=== PATIENT | male | born 1935 | race Caucasian/White ===

== ENCOUNTER 2018-09-14 18:14 | Observation (INO) | payer OTHER ==
[2018-09-14 19:08] LABS: Protime INR 1.18
[2018-09-14 19:09] LABS: Absolute Lymphocytes (CBC) 1.7 K/uL (0.7-4.9); Basophils % 0.4 % (0-1.3); Eosinophils % 2.1 % (0-4.4); Hematocrit 41.5 % (39.6-49.0); Monocytes % 10.8 % (3.3-12.3); RBC Red Blood Cell Count 4.42 M/uL (4.33-5.43)
--- NOTE | 2018-09-14 19:10 | RAD REPORT ---
EXAM DESCRIPTION: RAD - Chest Single View - 09/14/2018 6:58 pm CLINICAL HISTORY: CHEST PAIN Chest pain. COMPARISON: Chest Pa And Lat (2 Views) dated 08/06/2018; CHEST PA AND LAT 2 VIEW dated 09/24/2014; CHES T SINGLE VIEW dated 04/20/2008; ABDOMEN ACUTE SERIES dated 04/04/2008 FINDINGS: Portable technique limits examination quality. The lungs are emphysematous but grossly clear. The heart is normal in size. No displaced fractures. IMPRESSION: COPD.
[2018-09-14 19:30] LABS: Albumin 3.3 g/dL (3.4-5.0); Bilirubin Direct 0.3 mg/dL (0-0.2); Bilirubin Total 0.5 mg/dL (0.2-1.0); Magnesium 2.2 mg/dL (1.8-2.4); Protein, Total 6.4 g/dL (6.4-8.2); Troponin (Emerg Dept Use Only) 0.1 ng/mL (0.0-0.045)
--- NOTE | 2018-09-14 19:59 | ER ---
Nurse's Notes [facility] Name: Wale Mistry Age: 82 yrs Sex: Male : 1935 Arrival Date: 09/14/2018 Time: 18:19 Bed 6 Private MD: Mamadou Christianson R Diagnosis: Hypotension;Other chest pain;Atrial fibrillation and flutter;Unspecified kidney failure-insufficency;Hydrocele, unspecified-sp surgery, last week Presentation: 09/14 18:28 Presenting complaint: Patient states: I had a hydroceleectomy on with Dr. silas dan at [facility] and today my bp is running low, once at home it was 70/50 and I was clammy and having chest tightness. '. Transition of care: patient was not received from another setting of care. Onset of symptoms was September 14, 2018. Risk Assessment: Do you want to hurt yourself or someone else? Patient reports no desire to harm self or others. Initial Sepsis Screen: Does the patient meet any 2 criteria? No. Patient's initial sepsis screen is negative. Does the patient have a suspected source of infection? No. Patient's initial sepsis screen is negative. Care prior to arrival: None. 18:28 Method Of Arrival: Ambulatory la1 18:28 Acuity: VINOD 2 la1 Historical: - Allergies: 18:29 No Known Allergies; la1 - PMHx: 18:29 Atrial Fib; Hypertension; la1 - Immunization history:: Adult Immunizations up to date. - Social history:: Smoking status: Patient/guardian denies using tobacco. - Ebola Screening: : No symptoms or risks identified at this time. - Family history:: not pertinent. Screenin:55 Abuse screen: Denies threats or abuse. Denies injuries from another. Nutritional ph screening: No deficits noted. Tuberculosis screening: No symptoms or risk factors identified. Fall Risk No fall in past 12 months (0 pts). No secondary diagnosis (0 pts). IV access (20 points). Ambulatory Aid- None/Bed Rest/Nurse Assist (0 pts). Gait- Weak (10 pts.). Mental Status- Oriented to own ability (0 pts). Total Najera Fall Scale indicates Low Risk Score (25-44 pts). Fall prevention measures have been instituted. Side Rails Up X 2 Placed close to Nursing Station Frequent Obs/Assesments occuring Family Present and informed to notify staff if they need to leave bedside As available Patient and Family Educated on Fall Prevention Program and strategies. Assessment: 19:56 General: Appears in no apparent distress. uncomfortable, Behavior is calm, cooperative, jd3 appropriate for age. Pain: Complains of pain in chest Quality of pain is described as pressure. Neuro: Level of Consciousness is awake, alert, obeys commands, Oriented to person, place, time, situation, Appropriate for age. Cardiovascular: Heart tones present Capillary refill < 3 seconds Patient's skin is warm and dry. Rhythm is irregular. Respiratory: Airway is patent Respiratory effort is even, unlabored, Respiratory pattern is regular, symmetrical, Denies shortness of breath. GI: Abdomen is round non-distended, Bowel sounds present X 4 quads. Abd is soft and non tender X 4 quads. Patient currently denies diarrhea, nausea, vomiting. : on scrotum drains noted with small amount of blood. EENT: No signs and/or symptoms were reported regarding the EENT system. Derm: Skin is intact, Skin is dry, Skin is normal, Skin temperature is warm. Musculoskeletal: Circulation, motion, and sensation intact. Range of motion: intact in all extremities. 20:30 Reassessment: Patient appears in no apparent distress at this time. Patient and/or jd3 family updated on plan of care and expected duration. Pain level reassessed. Patient is alert, oriented x 3, equal unlabored respirations, skin warm/dry/pink. dressing changed to pt's surgical sight. 21:12 Reassessment: Patient appears in no apparent distress at this time. Patient and/or jd3 family updated on plan of care and expected duration. Pain level reassessed. Patient is alert, oriented x 3, equal unlabored respirations, skin warm/dry/pink. 22:22 Reassessment: Patient appears in no apparent distress at this time. Patient and/or jd3 family updated on plan of care and expected duration. Pain level reassessed. Patient is alert, oriented x 3, equal unlabored respirations, skin warm/dry/pink. awaiting room assignment. Patient denies pain at this time. 23:22 Reassessment: Patient appears in no apparent distress at this time. Patient and/or jd3 family updated on plan of care and expected duration. Pain level reassessed. Patient is alert, oriented x 3, equal unlabored respirations, skin warm/dry/pink. report given to Elizabeth ARCOS. Vital Signs: 18:30 Pulse 82; Resp 16; Temp 98.6; Pulse Ox 95% on R/A; Weight 79.38 kg; Height 5 ft. 9 in. la1 (175.26 cm); 18:31 BP 95 / 67; la1 19:58 BP 123 / 87; Pulse 88; Resp 17 S; Pulse Ox 98% on R/A; Pain 3/10; jd3 20:23 Weight 80.4 kg (M); jd3 21:11 BP 128 / 96; Pulse 89; Resp 16 S; Pulse Ox 97% on R/A; Pain 0/10; jd3 22:23 BP 118 / 80; Pulse 82; Resp 17 S; Pulse Ox 97% on R/A; Pain 0/10; jd3 20:23 Body Mass Index 26.18 (80.40 kg, 175.26 cm) jd3 ED Course: 18:19 Patient arrived in ED. ag5 18:20 Mamadou Christianson MD is Private Physician. ag5 18:29 Triage completed. la1 18:30 Arm band placed on right wrist. la1 18:43 EKG done, by ED staff. kj1 18:54 Inserted saline lock: 22 gauge in right antecubital area, using aseptic technique. ph Blood collected. 18:55 Patient has correct armband on for positive identification. Placed in gown. Bed in low ph position. Call light in reach. Side rails up X 1. youth nutritional monitor on. Pulse ox on. NIBP on. 19:00 XRAY Chest (1 view) In Process Unspecified. EDMS 19:11 Db Tobar MD is Attending Physician. jose 19:37 Dong Denton, [place] is Primary Nurse. jd3 19:56 Victor M Forman MD is Hospitalizing Provider. jose 19:59 IV is patent, is intact, with fluids infusing freely, with good blood return. jd3 23:17 No provider procedures requiring assistance completed. IV is patent, is intact, with jd3 fluids infusing freely, Patient admitted, IV remains in place. Administered Medications: 19:53 Drug: NS 0.9% 1000 ml Route: IV; Rate: 1 bolus; Site: right antecubital; jd3 20:50 Follow up: Response: No adverse reaction; IV Status: Completed infusion; IV Intake: jd3 1000ml 21:25 Drug: Pepcid 20 mg Route: IVP; Site: right antecubital; jd3 22:20 Follow up: Response: No adverse reaction jd3 21:27 Drug: Heparin (CT Drip) 12 units/kg/hr - (HEParin 55750 units, D5W 500 ml) jd3 {Co-Signature: re (Rosita James RN).} Route: IV; Rate: calculated rate; Site: right antecubital; 23:21 Follow up: Response: No adverse reaction; IV Status: Infusion continued upon admission jd3 21:28 Drug: Heparin (CT-Bolus No thrombolytic) - HEParin 60 units/kg {Co-Signature: re moe (Rosita James RN).} Route: IVP; Site: right antecubital; 22:25 Follow up: Response: No adverse reaction jd3 21:28 Drug: Aspirin 81 mg Route: PO; jd3 22:25 Follow up: Response: No adverse reaction jd3 Intake: 20:50 IV: 1000ml; Total: 1000ml. jd3 Outcome: 19:58 Decision to Hospitalize by Provider. jose 23:18 Admitted to Tele accompanied by cele, via stretcher, room 210, with chart, Report jd3 called to Elizabeth ARCOS 23:18 Condition: stable 23:18 Instructed on the need for admit, Demonstrated understanding of instructions. 23:23 Patient left the ED. jd3 Signatures: Dispatcher [employer] EDDb Chavira MD MD cha Attema, Lee, RN RN la1 Bozena Nunez RN Dong Jerome ph D RN RN jLisha Lam5 Kathi Mandujano kj1 Rosita James RN bb Corrections: (The following items were deleted from the chart) 18:30 18:28 Presenting complaint: Patient states: I had a hydroceleectomy on and la1 today my bp is running low, once at home it was 70/50 and I was clammy and having chest tightness. ' la1 09/15 07:10 06/15 19:56 : jd3 jd3
--- NOTE | 2018-09-14 19:59 | EDPHYS ---
Physician Documentation [facility] Name: Wale Mistry Age: 82 yrs Sex: Male : 1935 Arrival Date: 09/14/2018 Time: 18:19 Bed 6 Private MD: Mamadou Christianson R ED Physician Db Tobar HPI: 09/14 19:51 This 82 yrs old Male presents to ER via Ambulatory with complaints of Low jose Blood Pressure. 19:51 The patient or guardian reports chest pain that is located primarily in the substernal jose area. Onset: this morning. The patient presents with scrotal pain, swelling, tenderness, sp surgery last week. Onset: The symptoms/episode began/occurred this morning. Modifying factors: The symptoms are alleviated by nothing, the symptoms are aggravated by nothing. Associated signs and symptoms: The patient has no apparent associated signs or symptoms. Historical: - Allergies: 18:29 No Known Allergies; la1 - PMHx: 18:29 Atrial Fib; Hypertension; la1 - Immunization history:: Adult Immunizations up to date. - Social history:: Smoking status: Patient/guardian denies using tobacco. - Ebola Screening: : No symptoms or risks identified at this time. - Family history:: not pertinent. ROS: 19:51 Constitutional: Negative for fever, chills, and weight loss, Eyes: Negative for injury, jose pain, redness, and discharge, ENT: Negative for injury, pain, and discharge, Neck: Negative for injury, pain, and swelling, Respiratory: Negative for shortness of breath, cough, wheezing, and pleuritic chest pain, Abdomen/GI: Negative for abdominal pain, nausea, vomiting, diarrhea, and constipation, Back: Negative for injury and pain, MS/Extremity: Negative for injury and deformity, Skin: Negative for injury, rash, and discoloration, Neuro: Negative for headache, weakness, numbness, tingling, and seizure, Psych: Negative for depression, anxiety, suicide ideation, homicidal ideation, and hallucinations, Allergy/Immunology: Negative for hives, rash, and allergies, Endocrine: Negative for neck swelling, polydipsia, polyuria, polyphagia, and marked weight changes, Hematologic/Lymphatic: Negative for swollen nodes, abnormal bleeding, and unusual bruising. 19:51 Cardiovascular: Positive for chest pain, of the chest. 19:51 Cardiovascular: Positive for palpitations. 19:51 Respiratory: Positive for cough, with no reported sputum. Exam: 19:51 Constitutional: This is a well developed, well nourished patient who is awake, alert, jose and in no acute distress. Head/Face: Normocephalic, atraumatic. Eyes: Pupils equal round and reactive to light, extra-ocular motions intact. Lids and lashes normal. Conjunctiva and sclera are non-icteric and not injected. Cornea within normal limits. Periorbital areas with no swelling, redness, or edema. ENT: Nares patent. No nasal discharge, no septal abnormalities noted. Tympanic membranes are normal and external auditory canals are clear. Oropharynx with no redness, swelling, or masses, exudates, or evidence of obstruction, uvula midline. Mucous membranes moist. Neck: Trachea midline, no thyromegaly or masses palpated, and no cervical lymphadenopathy. Supple, full range of motion without nuchal rigidity, or vertebral point tenderness. No Meningismus. Chest/axilla: Normal chest wall appearance and motion. Nontender with no deformity. No lesions are appreciated. Respiratory: Lungs have equal breath sounds bilaterally, clear to auscultation and percussion. No rales, rhonchi or wheezes noted. No increased work of breathing, no retractions or nasal flaring. Abdomen/GI: Soft, non-tender, with normal bowel sounds. No distension or tympany. No guarding or rebound. No evidence of tenderness throughout. Back: No spinal tenderness. No costovertebral tenderness. Full range of motion. MS/ Extremity: Pulses equal, no cyanosis. Neurovascular intact. Full, normal range of motion. Neuro: Awake and alert, GCS 15, oriented to person, place, time, and situation. Cranial nerves II-XII grossly intact. Motor strength 5/5 in all extremities. Sensory grossly intact. Cerebellar exam normal. Normal gait. Psych: Awake, alert, with orientation to person, place and time. Behavior, mood, and affect are within normal limits. 19:51 Cardiovascular: Rate: normal, Rhythm: irregularly irregular, Pulses: Pulses are 4+ in bilateral radial, brachial, femoral, popliteal, posterior tibial and and dorsalis pedis arteries.. Heart sounds: normal, Edema: 2+ edema to level of left midcalf and right midcalf, JVD: is not appreciated. Vital Signs: 18:30 Pulse 82; Resp 16; Temp 98.6; Pulse Ox 95% on R/A; Weight 79.38 kg; Height 5 ft. 9 in. la1 (175.26 cm); 18:31 BP 95 / 67; la1 19:58 BP 123 / 87; Pulse 88; Resp 17 S; Pulse Ox 98% on R/A; Pain 3/10; jd3 20:23 Weight 80.4 kg (M); jd3 21:11 BP 128 / 96; Pulse 89; Resp 16 S; Pulse Ox 97% on R/A; Pain 0/10; jd3 22:23 BP 118 / 80; Pulse 82; Resp 17 S; Pulse Ox 97% on R/A; Pain 0/10; jd3 20:23 Body Mass Index 26.18 (80.40 kg, 175.26 cm) jd3 MDM: 19:09 Patient medically screened. jose 19:11 Patient medically screened. [facility] 19:54 Data reviewed: vital signs, nurses notes, lab test result(s), EKG, radiologic studies, jose plain films. 09/14 18:44 Order name: Basic Metabolic Panel ph 09/14 18:44 Order name: CBC with Diff ph 09/14 18:44 Order name: LFT's ph 09/14 18:44 Order name: Magnesium ph 09/14 18:44 Order name: NT PRO-BNP; Complete Time: 19:44 ph 09/14 18:44 Order name: PT-INR; Complete Time: 19:23 ph 09/14 18:44 Order name: Troponin (emerg Dept Use Only); Complete Time: 19:44 ph 09/14 18:47 Order name: Basic Metabolic Panel; Complete Time: 19:44 EDMS 09/14 18:47 Order name: CBC with Automated Diff; Complete Time: 19:23 EDMS 09/14 18:47 Order name: Liver (Hepatic) Function; Complete Time: 19:44 EDMS 09/14 18:47 Order name: Magnesium; Complete Time: 19:44 EDMS 09/14 19:21 Order name: Urine Culture [facility] 09/14 19:21 Order name: Blood Culture Adult (2) [facility] 09/14 20:30 Order name: Urine Dipstick--Ancillary (enter results) ar5 09/14 18:44 Order name: XRAY Chest (1 view); Complete Time: 19:23 ph 09/14 18:44 Order name: EKG; Complete Time: 18:47 ph 09/14 18:44 Order name: Cardiac monitoring; Complete Time: 19:38 ph 09/14 18:44 Order name: EKG - Nurse/Tech; Complete Time: 19:39 ph 09/14 18:44 Order name: IV Saline Lock; Complete Time: 19:39 ph 09/14 18:44 Order name: Labs collected and sent; Complete Time: 19:39 ph 09/14 18:44 Order name: O2 Per Protocol; Complete Time: 19:39 ph 09/14 18:44 Order name: O2 Sat Monitoring; Complete Time: 19:39 ph 09/14 19:21 Order name: Urine Dipstick-Ancillary (obtain specimen); Complete Time: 20:51 jose 09/14 19:55 Order name: Wound Care; Complete Time: 20:23 jose Administered Medications: 19:53 Drug: NS 0.9% 1000 ml Route: IV; Rate: 1 bolus; Site: right antecubital; jd3 20:50 Follow up: Response: No adverse reaction; IV Status: Completed infusion; IV Intake: jd3 1000ml 21:25 Drug: Pepcid 20 mg Route: IVP; Site: right antecubital; jd3 22:20 Follow up: Response: No adverse reaction jd3 21:27 Drug: Heparin ([place] Drip) 12 units/kg/hr - (HEParin 03944 units, D5W 500 ml) jd3 {Co-Signature: re (Rosita James RN).} Route: IV; Rate: calculated rate; Site: right antecubital; 23:21 Follow up: Response: No adverse reaction; IV Status: Infusion continued upon admission jd3 21:28 Drug: Heparin (MN-Bolus No thrombolytic) - HEParin 60 units/kg {Co-Signature: re moe (Rosita James RN).} Route: IVP; Site: right antecubital; 22:25 Follow up: Response: No adverse reaction jd3 21:28 Drug: Aspirin 81 mg Route: PO; jd3 22:25 Follow up: Response: No adverse reaction jd3 Disposition: 09/14/18 19:58 Hospitalization ordered by Victor M Forman for Inpatient Admission. Preliminary diagnosis are Hypotension, Other chest pain, Atrial fibrillation and flutter, Unspecified kidney failure - insufficency, Hydrocele, unspecified - sp surgery, last week. - Bed requested for Telemetry/MedSurg (Inpatient). - Status is Inpatient Admission. jd3 - Condition is Fair. - Problem is new. - Symptoms have improved. UTI on Admission? No Signatures: Dispatcher [employer] EDMS Db Tobar MD MD cha Attema, Lee, RN RN la1 Bozena Nunez RN RN Judie Muniz, RN RN cg Dong Denton RN RN jd3 Rosita James RN bb Corrections: (The following items were deleted from the chart) 22:32 19:58 Hospitalization Ordered by Victor M Forman MD for Inpatient Admission. Preliminary cg diagnosis is Hypotension; Other chest pain; Atrial fibrillation and flutter; Unspecified kidney failure - insufficency; Hydrocele, unspecified - sp surgery, last week. Bed requested for Telemetry/MedSurg (Inpatient). Status is Inpatient Admission. Condition is Fair. Problem is new. Symptoms have improved. UTI on Admission? No. [facility] 23:23 22:32 09/14/2018 19:58 Hospitalization Ordered by Victor M Forman MD for Inpatient jd3 Admission. Preliminary diagnosis is Hypotension; Other chest pain; Atrial fibrillation and flutter; Unspecified kidney failure - insufficency; Hydrocele, unspecified - sp surgery, last week. Bed requested for Telemetry/MedSurg (Inpatient). Status is Inpatient Admission. Condition is Fair. Problem is new. Symptoms have improved. UTI on Admission? No. cg
[2018-09-14] MEDS ORDERED: NA CHLORIDE 0.9% 1,000 ML ONE (20:00)
[2018-09-14] MEDS ORDERED: FAMOTIDINE 20 MG/2 ML VIAL IV ONE (21:05)
[2018-09-14] MEDS ORDERED: ASPIRIN 81 MG CHEWABLE TABLET ONE (21:05)
[2018-09-14] MEDS ORDERED: HEPARIN/D5W 25,000 UNIT/500 ML BAG IV ONE (21:05)
[2018-09-14 21:06] LABS: Urine Blood NEGATIVE (NEG); Urine Glucose NEGATIVE (NEG); Urine Protein NEGATIVE (NEG); Urine pH 5.5 (5.0-7.0)
[2018-09-14] MEDS ORDERED: HEPARIN 5000 UNIT/ML 1 ML VIAL ONE (21:39)
--- NOTE | 2018-09-14 22:28 | P.HP ---
Certification for Inpatient Patient admitted to: Observation With expected LOS: <2 Midnights Practitioner: I am a practitioner with admitting privileges, knowledge of patient current condition, hospital course, and medical plan of care. Services: Services provided to patient in accordance with Admission requirements found in Title 42 Section 412.3 of the Code of Federal Regulations Patient History Date of Service: 09/14/18 Reason for admission: chest pain, dizziness History of Present Illness: Mr Mistry is an 82 years old male, with history of HTN, chronic a.fib, who has had Hydrocelectomy done about 3 days ago. Since so, he was doing well, according to his family member, he was not drinking enough fluids. Today, the patient was dizzy, he took his BP wan it was low, 65/57. The patient was clammy , and he was complaining of tightness in his chest. Unfortunately the patient is not a good historian, and he did not give to much details about chest pain, however, he is pain free now. At arrival, BP was still on the lower side, 95/ 67. Lab work shows normal WBC count, Trop I 0.1, EKG shows A.Fib with RBBB (not new). Home medications list reviewed: Yes - Past Medical/Surgical History -: chronic A.Fib -: hypertension -: hydrocelectomy - Family History Family History: Reviewed- Non-Contributory - Social History Smoking Status: Current every day smoker Counseled patient to stop smoking for: less than 10 minutes CD- Drugs: No Place of Residence: Home Review of Systems 10-point ROS is otherwise unremarkable Physical Examination - Physical Exam General: Alert, In no apparent distress HEENT: Atraumatic, PERRLA, Mucous membr. moist/pink, EOMI, Sclerae nonicteric Neck: Supple, 2+ carotid pulse no bruit, No LAD, Without JVD or thyroid abnormality Respiratory: Clear to auscultation bilaterally, Normal air movement Cardiovascular: Normal S1 S2, Irregular heart rate/rhythm Gastrointestinal: Normal bowel sounds, No tenderness Musculoskeletal: No tenderness Integumentary: No rashes Neurological: Normal speech, Normal strength at 5/5 x4 extr, Normal tone, Normal affect Lymphatics: No axilla or inguinal lymphadenopathy - Studies Laboratory Data (last 24 hrs) 09/14/18 18:54: PT 13.8 H, INR 1.18 09/14/18 18:54: WBC 8.7, Hgb 14.3, Hct 41.5, Plt Count 137 L 09/14/18 18:54: Sodium 141, Potassium 4.0, BUN 19 H, Creatinine 1.31 H, Glucose 127 H, Magnesium 2.2, Total Bilirubin 0.5, AST 17, ALT 18, Alkaline Phosphatase 78 Assessment and Plan - Problems (Diagnosis) (1) Hypotension Current Visit: Yes Status: Acute Qualifiers: Hypotension type: unspecified hypotension type Qualified Code(s): I95.9 - Hypotension, unspecified (2) Chest pain Current Visit: Yes Status: Acute Qualifiers: Chest pain type: unspecified Qualified Code(s): R07.9 - Chest pain, unspecified (3) Chronic a-fib Current Visit: Yes Status: Acute (4) Elevated troponin I level Current Visit: Yes Status: Acute - Plan Will admit the patient due to chest pain with elevated trop I, consistent with NSTEMI. Will order full anticoagulation with lovenox, ASA, start IV fluids, consult cardiology team. A.Fib rate is well controlled. - Advance Directives Does patient have a Living Will: No Does patient have a Durable POA for Healthcare: No - Code Status/Comfort Care Code Status Assessed: Yes Code Status: Full Code
[2018-09-14] MEDS ORDERED: ONDANSETRON 4 MG/2 ML VIAL IV PRN (23:54)
[2018-09-14] MEDS ORDERED: NA CHLORIDE 0.9% 1,000 ML IV SCH (23:54)
[2018-09-15] MEDS ORDERED: ENOXAPARIN 80 MG/0.8 ML SQ SCH (02:00)
[2018-09-15 04:16] LABS: Absolute Lymphocytes (CBC) 2.2 K/uL (0.7-4.9); Basophils % 0.4 % (0-1.3); Eosinophils % 3.6 % (0-4.4); Lymphocytes % 27.4 % (15.3-44.8); MPV 9.8 fL (7.6-11.3); RBC Red Blood Cell Count 4.29 M/uL (4.33-5.43)
[2018-09-15 04:39] LABS: Potassium 3.7 mmol/L (3.5-5.1)
[2018-09-15] MEDS ORDERED: ASPIRIN 81 MG CHEWABLE TABLET PO SCH (09:00)
[2018-09-15] MEDS ORDERED: POTASSIUM CL SA 10 MEQ TAB PO ONE (09:00)
--- NOTE | 2018-09-15 10:35 | EKG ---
Test Date: 2018-09-14 Test Time: 18:28:54 Graphics Coordinator: ANKIT MEASUREMENT RESULTS: Intervals: Rate: 87 NM: QRSD: 150 QT: 398 QTc: 478 [place]: P: NM: QRS: -68 T: 9 INTERPRETIVE STATEMENTS: Atrial fibrillation with premature ventricular or aberrantly conducted complexes Left axis deviation Right bundle branch block Abnormal ECG Compared to ECG 08/15/2018 10:45:26 Ventricular premature complex(es) now present Electronically Signed On 09-15-18 10:35:10 CDT by Jacob Pandya
--- NOTE | 2018-09-16 02:39 | DS ---
Date of Discharge: 09/15/2018 Bailiff: Dr. Pandya with Cardiology. Discharge Diagnoses: 1. Chest pain. 2. Hypertension. 3. Chronic atrial fibrillation. 4. Elevated troponin level. Hospital Course: The patient is an 82-year-old male with past medical history of hypertension, chronic atrial fibrillation, who recently had hydrocelectomy done 3 days ago, comes in with dizziness and chest pain. The patient's workup revealed elevated troponin level of 0.1 and 0.16. His blood pressure was on the low side. The patient was started on chest pain guidelines. Cardiology was consulted. His blood pressure improved with IV fluid resuscitation, was in the 140s. The patient did not have any chest pain, did report some musculoskeletal pain. The patient was more concerned with his hydrocele as well as getting back home and therefore wanted to leave against medical advice. The patient was counseled extensively. Primary nurse as well as charge nurse , Josiane, was in the room along with the patient's daughter. I explained to the patient that he has elevated cardiac enzymes, which means that he has had some form of cardiac injury. It is highly dangerous and risky for the patient to leave against medical advice. He could suffer a worsening cardiac event and possibly even . The patient voiced understanding. He stated that, that is the risk he is willing to take. He would rather go home, adjust his bed, and continue to ice his testicle following the recent procedure. The patient already has an ice pack. He did not wish to stay in the hospital and understanding the risks, he signed out against medical advice. Physical exam General: AAOx3, NAD CV: S1, S2 Respiratory: Moving air well bilaterally Abdomen: soft NT/ND +BS Ext: No c/c/e Neuro: non focal SA/MODL Voice ID: [id number] Report ID: [id number]
== END 2018-09-15 09:55 | disposition left against medical advice (07) ==
LOC: ER 18:14 → ERHOLD 22:28 → 2ND 22:57
PROVIDERS: ADMIT Internal Medicine; ATTEND Internal Medicine
DX: R07.9 Chest pain, unspecified (principal); I48.2 Chronic atrial fibrillation; R79.89 Other specified abnormal findings of blood chemistry; I10 Essential (primary) hypertension; F17.210 Nicotine dependence, cigarettes, uncomplicated
CPT/HCPCS: 96365; 96361; 93005; 87040 ×2; 87088; 85025 ×2; 80048 ×2; 36415; 83735; 87205; 85610; 80076; 81003; 84484 ×2; 83880; 71045; 96375; 99285; 96366; J1644 ×2; J1650; J7030 ×2; G0378 ×2; 87086

== ENCOUNTER 2021-04-11 13:02 | Day surgery (SDC) | payer OTHER ==
[2021-04-08 10:27] LABS: Hematocrit 45.3 % (39.6-49.0); Lymphocytes % 23.3 % (15.3-44.8); MPV 8.9 fL (7.6-11.3); Protime INR 1.96; RBC Red Blood Cell Count 4.68 M/uL (4.33-5.43)
[2021-04-08 10:33] LABS: Potassium 4.4 mmol/L (3.5-5.1)
--- NOTE | 2021-04-08 11:35 | RAD REPORT ---
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 FINDINGS: The lungs are fibrotic with flattened diaphragm. Fibrotic pattern is not clearly different from the comparison. No failure or volume overload findings. Heart size is normal and central vasculature is within normal limits. No pleural effusion or pneu mothorax seen. No acute bony finding noted. No aortic abnormality. IMPRESSION: Mild to moderate COPD pattern similar to comparison. No acute findings seen.
--- NOTE | 2021-04-09 13:49 | EKG ---
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
[~2021-04-11 13:02] MED LIST: HEPA 1000U/500MLS 2,000 UNIT/1,000 ML BAG IV ONE; NA CHLORIDE 0.9% 500 ML ONE
[2021-04-11] MEDS ORDERED: LIDOCAINE 1% 20 ML MDV ONE (13:08)
[2021-04-11 14:02] VITALS: TEMP 97.5
[2021-04-11] MEDS ORDERED: FENTANYL CITR 100 MCG/2 ML ONE (15:21)
[2021-04-11] MEDS ORDERED: HEPARIN 5000 UNIT/ML 1 ML VIAL ONE (15:21)
[2021-04-11] MEDS ORDERED: MIDAZOLAM HCL 2 MG/2 ML INJ ONE (15:21)
[2021-04-11] MEDS ORDERED: VERAPAMIL HCL 10 MG/4 ML VIAL IV ONE (15:21)
[2021-04-11] MEDS ORDERED: NITROGLYCERIN 100 MCG/ML SYR (for cath lab use only) IV ONE (15:22)
[2021-04-11] MEDS ORDERED: ATROPINE SULF 1 MG/10 ML SYR IV ONE (15:22)
[2021-04-11] MEDS ORDERED: HEPA 1000U/500MLS 1,000 UNIT/500 ML BAG IV ONE (15:42)
[2021-04-11] MEDS ORDERED: HYDRALAZINE HCL 20 MG/ML VIAL IV ONE (17:40)
[2021-04-11] MEDS ORDERED: HYDRALAZINE HCL 20 MG/ML VIAL ONE (17:43)
[2021-04-11 19:21] VITALS: BP 155/90; O2SAT 95
--- NOTE | 2021-04-12 02:14 | OP ---
Date of Procedure: 04/11/2021 Surgeon: YANET RAMOS Procedure Performed: 1.Selective coronary angiogram. 2.Peripheral angiogram with runoff. Indication: 1.Severe peripheral vascular disease. 2.Unstable angina. Access: Right radial artery 6-Turkish closed with TR band. Complications: None. Bleeding: Less than 10 mL. Description Of Procedure: After risks, benefits, and alternatives were explained, the patient agreed to the procedure and signed informed consent. The patient was brought into the cardiac catheterizat ion laboratory, prepped and draped in usual sterile fashion. Then, we accessed right radial artery u sing pediatric micropuncture kit and placed a 6-Turkish slender sheath and then took a 5-Turkish [place] 4.0 catheter in the aortic root, engaged left main and the right coronary artery, took standard views , and then took an exchange J-wire through the catheter into the distal aorta and then exchanged for a long pigtail catheter, and then distal aortogram with runoff was done. Subsequently, I used a vanessa ctive engagement of the left SFA and did further angiogram to see the vessels below the knee. Then, the catheter was removed, sheath was removed, placed TR band with good hemostasis. Findings: 1.Left main; large and normal. 2.LAD; a very large and aneurysmal proximal portion and then there are multiple lesions that ranges between 50% to 60% stenosis with some aneurysmal segments in between diagonal branches, aneurysmal pr oximally but ostially it is about 80% to 90% stenosed. 3.Left circumflex. The whole vessel is large and aneurysmal and ectatic with slow flow with no foca l significant stenosis. 4.RCA. Large and aneurysmal and no focal stenosis, there is about 20% or 30% proximal stenosis and then the PLB is diffusely diseased distally, slow flow throughout all his arteries. 5.Peripheral angiogram, distal aorta is patent. 6.Bilateral common and internal iliacs are patent. No significant disease. 7.Bilateral common femoral arteries are patent. 8.Left SFA is widely patent until the area above the knee where it becomes [employer] and there are collate rals that comes off from this vessel before CTA of that feet felt like profunda is patent. 9.The right SFA is widely patent. Right profunda is widely patent and slow flow below the knee. 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 2.Severe peripheral vascular disease as above. Plan: 1.For coronary artery disease, I will choose medical management. No intervention is recommended. 2.For peripheral vascular disease, I will consult Vascular Surgery for further recommendations. /MIAN Voice ID: [id number] Report ID: [id number]
== END 2021-04-11 18:10 | disposition home or self-care (01) ==
LOC: CCL 13:02
PROVIDERS: ATTEND Internal Medicine
PROC: B40DYZZ Plain Radiography of Aorta and Bilateral Lower Extremity Arteries using Other Contrast (ICD-10-PCS; principal; 2021-04-11)
DX: I25.110 Atherosclerotic heart disease of native coronary artery with unstable angina pectoris (principal); I25.41 Coronary artery aneurysm; I70.213 Atherosclerosis of native arteries of extremities with intermittent claudication, bilateral legs; I70.92 Chronic total occlusion of artery of the extremities; I35.2 Nonrheumatic aortic (valve) stenosis with insufficiency; I48.21 Permanent atrial fibrillation; I10 Essential (primary) hypertension; F17.210 Nicotine dependence, cigarettes, uncomplicated; Z20.822 Contact with and (suspected) exposure to COVID-19; Z82.49 Family history of ischemic heart disease and other diseases of the circulatory system
CPT/HCPCS: 93005 ×2; 85025; 80048; 36415; 85610; 85730; 71046; 93454; 75630; U0003; C1893; C1769; J0360; J1644 ×3; J2250; J3010; J7040

== ENCOUNTER 2021-06-20 11:53 | Observation (INO) | payer OTHER ==
--- OUTSIDE RECORDS SUMMARY | 2021-06-20 11:57 | XMS REPORT | Continuity of Care Document ---
:1935 Demographics Address [address] [place] [address] Email Address DECLINED Preferred Language Belarusian Marital Status Unknown Congregation Affiliation Unknown Race Unknown Additional Race(s) Unavailable Ethnic Group Unknown Author Organization [facility] t Address [address] [place] [address] Care Team Providers Name Role Phone Carol Jimenez Attending Clinician Unavailable Carol Jimenez Admitting Clinician Unavailable Payers Payer Name Policy Type Policy Number Effective Date Expiration Date S ource Problems This patient has no known problems. Allergies, Adverse Reactions, Alerts Allergy Allergy Status Severity Reaction(s) Onset Inactive Treating Comm ents Source Name Type Date Date Clinician No Known DA Active [facility] All[facility]ie 1-11 Clear s 00:00: [facility] [address] [place] [address] Medications This patient has no known medications. Procedures Procedure Date / Time Performed Performing Clinician Elgiio mercer [id number] 2021-04-18 00:00:00 [facility] [id number] 2021-04-18 00:00:00 [facility] [id number] 2021-04-18 00:00:00 [facility] [id number] 2021-04-18 00:00:00 [facility] [id number] 2021-04-18 00:00:00 [facility] [id number] 2021-04-18 00:00:00 [facility] [id number] 2021-04-18 00:00:00 [facility] [id number] 2021-04-18 00:00:00 [facility] [id number] 2021-04-18 00:00:00 [facility] [id number] 2021-04-15 00:00:00 PATMA.12 [facility] Encounters Start End Encounter Admission Attending Care Care Encounter Source Date/Time Date/Time Type Type Clinicians Facility Department ID 2021-04-12 2021-04-27 Inpatient José Pike [facility].01 G101 [id number] [facility] 23:50:00 17:10:00 [id number] [facility] 2021-04-12 2021-04-27 Inpatient José Pike [facility].01 G001 [id number] [facility] 23:50:00 17:10:00 [facility] Results Test Description Test Time Test Comments Results Result Comments Source CSF PROTEIN PROFILE 2021-04-29 07:22:00 Test Item Value Reference Range Interpretation Comme nts CSF PROTEIN 14-3-3. (test code = Likelihood of prion disease: <0.2% SEE [id number]) SCANNED COPY [facility] MEDICAL RECORDS - MRI BRAIN W/O [id number] [facility] 1935 Sex: M FAX: Ynes Baker MD [phone] [place]: St: ADM FAX: Mamadou Quiroz [phone] FAX: José Dill MD [phone] Name: KAYLYNN MENG : 1935 Age/S: 85/M [address] [place] [address] Unit #: [id number] Loc: G.[address] [place] [address] Phys: Ynes Baker MD Acct: [id number] Dis Date: Status: ADM IN PHONE #: [phone] Exam Date: 04/13/2021 1620 FAX #: [phone] Reason: CHANGE IS MENTAL STATUS Report Has Been Amended EXAMS: CPT CODE: [id number] MRI BRAIN W/O CONT [id number] Addendum - 04/26/2021 SIGNED 04/26/2021 ADDENDUM: [id number] MRI/MRIBRAINWO Addendum: To specify, questionable DWI hyperintense signal in the bilateral frontal lobes and left parietal lobe 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 Findings are most notable on DWI images 5-10 in the frontal lobes and images 7-8 in the left parietal lobe. at 1044 Reported and signed by: Saman Sultana M.D. Addendum - 04/14/2021 SIGNED 04/14/2021 ADDENDUM: [id number] MRI/MRIBRAINWO Addendum: The examination was reviewed with particular focus on the cortex of the brain and there are patchy areas of hyperintensity in the frontal cortex bilaterally and also visible in the posterior parietal cortex on the left. 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 at 0859 Reported and signed by: Vinay Lim M.D. Report PROCEDURE INFORMATION: Exam: MR Head Without Contrast Exam date and time: 04/13/2021 4:01 PM Age: 84 years old Clinical indication: Altered mental status/memory loss; Confusion or disorientation; Additional info: Change is mental status TECHNIQUE: PAGE 1 Signed Report (CONTINUED) FAX: Ynes Baker MD [phone] [place]: St: ADM FAX: Mamadou Quevedo [phone] FAX: José Dill MD [phone] Name: KAYLYNN MENG [facility] : 1935 Age/S: 85/M [address] [place] [address] Unit #: [id number] Loc: G.4431 [place] [address] Phys: Ynes Baker MD Acct: [id number] Dis Date: Status: ADM IN PHONE #: [phone] Exam Date: 04/13/2021 1620 FAX #: [phone] Reason: CHANGE IS MENTAL STATUS Report Has Been Amended EXAMS: CPT CODE: [id number] MRI BRAIN W/O CONT 06532 <Continued> Imaging protocol: MR of the head without contrast. COMPARISON: CT HEAD/BRAIN W/O CONT 04/13/2021 10:06 AM FINDINGS: Brain: Examination of the brain shows symmetrical expansion of the ventricles and extracerebral spaces, consistent with the patient's age. There is diffuse hyperintensity throughout the white matter of both cerebral hemispheres which represents moderately advanced,chronic ischemic demyelination which is consistent since age. No other discrete areas of abnormal signal are seen within the brain and in particular, there is no abnormal signal on diffusion- weighted sequences to indicate any recent or acute ischemic injury. No other abnormalities of the brain are seen and there is no other intracranial abnormality. The acoustic nerves and cerebellopontine angle cisterns are normal. Bones/joints: Calvarium is intact. The temporal bones and mastoid processes are normally aerated and no other osseous abnormalities are seen. Paranasal sinuses: The paranasal sinuses are normally aerated and the visible portions of the nasal cavity and nasopharynx are normal. Orbital cavity:The orbital contents are normal and the visible portions of the intracranial optic apparatus are also normal. Soft tissues: Unremarkable. IMPRESSION: No acute findings. 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 There is no evidence of any discrete cerebral lesion and in particular, no abnormal signal is noted on the diffusion-weighted sequence to indicate any recent or acute ischemic injury. No other abnormalities of the brain are seen. at 1758 Reported and signed by: Vinay Lim M.D. PAGE 2 Signed Report (CONTINUED) FAX:Ynes Baker MD [phone] [place]: St: ADM FAX: Mamadou Quevedo [phone] FAX: José Dill MD [phone] Name: KAYLYNN MENG [facility] : 1935 Age/S: 85/M [address] [place] [address] Unit #: [id number] Loc: G.4431 [place] [address] Phys: Ynes Baker MD Acct: [id number] Dis Date: Status: ADM IN PHONE #: [phone] Exam Date: 04/13/2021 1620 FAX#: [phone] Reason: CHANGE IS MENTAL STATUS Report Has Been Amended EXAMS: CPT CODE:[id number] MRI BRAIN W/O CONT 23350 <Continued> CC: Ynes Baker MD; Mamadou Leigh MD; José Jimenez MD Technologist: RT Nelsy(R)(CT) [facility] Date/Time/By: 04/13/2021 (1751) : By: [email or web address] Orig Print D/T: S: 04/13/2021 (557) PAGE 3 Signed ReportVITAMIN [id number] 13:10:00 Test Item Value Reference Range Interpretation Comments VITAMIN B12 (test code = VITB12) 336 pg/mL 193-986 N FOLIC [id number] 13:10:00 Test Item Value Reference Range Interpretation Comments FOLIC ACID (test code = FOL) 11.0 ng/mL 3.1-17.5 N T4 [id number] 13:10:00 Test Item Value Reference Range Interpretation Comments T4 FREE (test code = T4F) 1.0 ng/dL 0.77-1.61 N THYROID STIMULATING [id number] 13:10:00 Test Item Value Reference Range Interpretation Comments THYROID STIMULATING 2.00 0.42-5.47 N Results in HORMONE (test code = TSH) mi lli-International Units/mL VIT B1 WHOLE [id number] 13:10:00 Test Item Value Reference Range Interpretation Comments VIT B1 WHOLE BLOOD 179.7 nmol/L 66.5-200.0 Performed At: BN (test code = [facility] [place] [id number]) [facility] [place] [id number] benja Conteh MD Ph:[phone] METHYLMALONIC [id number] 13:12:00 Test Item Value Reference Range Interpretation Comments METHYLMALONIC ACID (test 276 nmol/L 0-378 Per formed At: BN code = METHM) [facility] [id number] [facility] [place] [id number] Conteh MD Ph:[phone] BASIC METABOLIC [id number] 08:44:00 Test Item Value Reference Range Interpretation Comments SODIUM (test code = NA) 141 mEq/L 134-147 N POTASSIUM (test code = 5.3 mEq/L 3.4-5.0 H K) CHLORIDE (test code = 107 mEq/L 100-108 N CL) CARBON DIOXIDE (test 25 mEq/l 21-33 N code = CO2) ANION GAP (test code = 14 0-20 N GAP) GLUCOSE (test code = 104 mg/dL 70-110 N GLU) BLOOD UREA NITROGEN 15 mg/dL 7-18 (test code = BUN) GLOMERULAR FILTRATION 107.2 70-80 H Units of measure = RATE (test code = GFR) ml/mi n/1.73 m2 CREATININE (test code = 0.7 mg/dL 0.6-1.3 N CREAT) CALCIUM (test code = 8.9 mg/dL 8.0-10.5 N CA) [id number] 08:44:00 Test Item Value Reference Range Interpretation Comments MAGNESIUM (test code = MAG) 1.80 mg/dL 1.80-2.40 N CBC W/AUTO [id number] 08:14:00 Test Item Value Reference Range Interpretation Comments WHITE BLOOD CELL (test code = 12.2 x10 3/uL 4.5-11.0 H WBC) RED BLOOD CELL (test code = 4.40 x10 6/uL 4.00-5.60 N RBC) HEMOGLOBIN (test code = HGB) 14.2 g/dL 12.5-16.9 N HEMATOCRIT (test code = HCT) 42.3 % 37.5-50.7 N MEAN CELL VOLUME (test code = 96.1 fL 81.0-99.0 N MCV) MEAN CELL HGB (test code = MCH) 32.3 pg 27.0-33.0 N MEAN CELL HGB CONCETRATION 33.6 g/dL 33.0-37.0 N (test code = MCHC) RED CELL DISTRIBUTION WIDTH CV 13.3 % 11.5-14.5 N (test code = RDW) RED CELL DISTRIBUTION WIDTH SD 47.8 fL 37.0-54.0 N (test code = RDW-SD) PLATELET COUNT (test code = 151 x10 3/uL 150-400 N PLT) MEAN PLATELET VOLUME (test code 12.4 fL 7.0-9.0 H = MPV) NEUTROPHIL % (test code = NT%) 78.7 % 56.0-77.0 H IMMATURE GRANULOCYTE % (test 0.5 % 0.0-2.0 N code = IG%) LYMPHOCYTE % (test code = LY%) 9.6 % 14.0-32.0 L MONOCYTE % (test code = MO%) 10.5 % 4.8-9.0 H EOSINOPHIL % (test code = EO%) 0.2 % 0.3-3.7 L BASOPHIL % (test code = BA%) 0.5 % 0.0-2.0 N NUCLEATED RBC % (test code = 0.0 % 0-0 N NRBC%) NEUTROPHIL # (test code = NT#) 9.64 x10 3/uL 2.0-7.6 H IMMATURE GRANULOCYTE # (test 0.06 x10 3/uL 0.00-0.03 H code = IG#) LYMPHOCYTE # (test code = LY#) 1.17 x10 3/uL 1.0-3.8 N MONOCYTE # (test code = MO#) 1.28 x10 3/uL 0.1-0.8 H EOSINOPHIL # (test code = EO#) 0.02 x10 3/uL 0.0-0.2 N BASOPHIL # (test code = BA#) 0.06 x10 3/uL 0.0-0.2 N NUCLEATED RBC # (test code = 0.00 x10 3/uL 0.0-0.1 N NRBC#) MANUAL DIFF REQUIRED (test code NO = MDIFF) CSF VDRL [id number] 17:09:00 Test Item Value Reference Range Interpretation Comments CSF VDRL QUAL Non Reactive See_Comment Performed At: [facility] (test code = [id number] [place] VDRLCSFQL) [place], [place] [id number] ra Wero MEJIA Ph:[phone] [Automated mess age] The system which ge nerated this result tra nsmitted reference range : Non Merced:<1:1. The r eference range was not u sed to interpret this result as normal/abnormal . 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 [facility] BASIC METABOLIC [id number] 06:47:00 Test Item Value Reference Range Interpretation Comments SODIUM (test code = NA) 144 mEq/L 134-147 N POTASSIUM (test code = 4.0 mEq/L 3.4-5.0 N K) CHLORIDE (test code = 111 mEq/L 100-108 H CL) CARBON DIOXIDE (test 26 mEq/l 21-33 N code = CO2) ANION GAP (test code = 11 0-20 N GAP) GLUCOSE (test code = 102 mg/dL 70-110 N GLU) BLOOD UREA NITROGEN 22 mg/dL 7-18 H (test code = BUN) GLOMERULAR FILTRATION 80.2 70-80 H Units of measure = RATE (test code = GFR) ml/mi n/1.73 m2 CREATININE (test code = 0.9 mg/dL 0.6-1.3 N CREAT) CALCIUM (test code = 9.3 mg/dL 8.0-10.5 N CA) PROTHROMBIN [id number] 06:44:00 Test Item Value Reference Range Interpretation Comments PROTHROMBIN TIME 23.7 SECONDS 9.3-12.9 H PATIENT (test code = PTP) INTERNATIONAL NORMAL 2.1 0.8-1.2 H TARGET RATIO (test code = INR BY IN DICATION INR) Indication INR1. Prophyl axis of venous thrombos is 2.0 - 3. 0 (orthopedic ly aura), Prophylaxis of venous thrombos is (other than hig h-risk surgery), Raine tment of Deep Vein Thrombosis/Pulm onary Embolism, Preve ntion of systemic emb olism - Tissue heart va lves, Acute Myocardia l Infarction (to prevent systemic embo lism), Valvular heart disease, Atri al Fibrillation, Bileaflet mecha nical valve in aortic position.2. Mec hanical prosthetic valv es (high risk), 2.5 - 3.5 Presence of Lupus Anticoagu lant or Antiphospholi pid Antibodies, Pre vention of systemic e mbolism - Acute Myocard ial Infarction (t o prevent recurre nt infarct). THROMBOPLASTIN TIME [id number] 06:44:00 Test Item Value Reference Range Interpretation Comments THROMBOPLASTIN TIME 40.9 Seconds 25.0-39.5 H Ther apeutic PARTIAL (test code = Range: 50.4 - 88.3 PTT) Seconds Effective 07/16/2018 CBC W/AUTO [id number] 06:31:00 Test Item Value Reference Range Interpretation Comments WHITE BLOOD CELL (test code = 9.4 x10 3/uL 4.5-11.0 N WBC) RED BLOOD CELL (test code = 4.81 x10 6/uL 4.00-5.60 N RBC) HEMOGLOBIN (test code = HGB) 15.5 g/dL 12.5-16.9 N HEMATOCRIT (test code = HCT) 46.6 % 37.5-50.7 N MEAN CELL VOLUME (test code = 96.9 fL 81.0-99.0 N MCV) MEAN CELL HGB (test code = MCH) 32.2 pg 27.0-33.0 N MEAN CELL HGB CONCETRATION 33.3 g/dL 33.0-37.0 N (test code = MCHC) RED CELL DISTRIBUTION WIDTH CV 13.4 % 11.5-14.5 N (test code = RDW) RED CELL DISTRIBUTION WIDTH SD 48.4 fL 37.0-54.0 N (test code = RDW-SD) PLATELET COUNT (test code = 168 x10 3/uL 150-400 N PLT) MEAN PLATELET VOLUME (test code 11.1 fL 7.0-9.0 H = MPV) NEUTROPHIL % (test code = NT%) 66.7 % 56.0-77.0 N IMMATURE GRANULOCYTE % (test 0.5 % 0.0-2.0 N code = IG%) LYMPHOCYTE % (test code = LY%) 20.6 % 14.0-32.0 N MONOCYTE % (test code = MO%) 10.6 % 4.8-9.0 H EOSINOPHIL % (test code = EO%) 0.9 % 0.3-3.7 N BASOPHIL % (test code = BA%) 0.7 % 0.0-2.0 N NUCLEATED RBC % (test code = 0.0 % 0-0 N NRBC%) NEUTROPHIL # (test code = NT#) 6.26 x10 3/uL 2.0-7.6 N IMMATURE GRANULOCYTE # (test 0.05 x10 3/uL 0.00-0.03 H code = IG#) LYMPHOCYTE # (test code = LY#) 1.93 x10 3/uL 1.0-3.8 N MONOCYTE # (test code = MO#) 1.00 x10 3/uL 0.1-0.8 H EOSINOPHIL # (test code = EO#) 0.08 x10 3/uL 0.0-0.2 N BASOPHIL # (test code = BA#) 0.07 x10 3/uL 0.0-0.2 N NUCLEATED RBC # (test code = 0.00 x10 3/uL 0.0-0.1 N NRBC#) MANUAL DIFF REQUIRED (test code NO = MDIFF) COVID 19 Asymptomatic IH [id number] 16:03:00 Test Item Value Reference Range Interpretation Comments COVID 19 Asymptomatic Negative Negative A nega tive result is IH AG (test code = presumpti ve and should COVNONPUIAG) be confirmedwit h an FDA authorized mole cular assay, if neces lora forpatient marsha gement.A positive result does not rule out co-inf ections withother patho gens.This test detects angeles th viable (live) and non-viable,SARS -CoV, and SARS-CoV-2. Tacos t performance dep ends on theamount of vi dennise (antigen) in th e sample.This tacos t has not been FDA cleare d or approved; the t est hasbeen authori zed by FDA under an Em ergency Use Authorizati on(EUA) for use by labo ratories certified under the CLIA thatmeet the requirements to perform moderate, high or waivedcomplexit y tests. BASIC METABOLIC [id number] 08:24:00 Test Item Value Reference Range Interpretation Comments SODIUM (test code = NA) 144 mEq/L 134-147 N POTASSIUM (test code = 3.7 mEq/L 3.4-5.0 N K) CHLORIDE (test code = 108 mEq/L 100-108 N CL) CARBON DIOXIDE (test 28 mEq/l 21-33 N code = CO2) ANION GAP (test code = 12 0-20 N GAP) GLUCOSE (test code = 110 mg/dL 70-110 N GLU) BLOOD UREA NITROGEN 17 mg/dL 7-18 (test code = BUN) GLOMERULAR FILTRATION 71.0 70-80 N Units of measure = RATE (test code = GFR) ml/mi n/1.73 m2 CREATININE (test code = 1.0 mg/dL 0.6-1.3 N CREAT) CALCIUM (test code = 8.8 mg/dL 8.0-10.5 N CA) CBC W/AUTO [id number] 07:00:00 Test Item Value Reference Range Interpretation Comments WHITE BLOOD CELL (test code = 10.7 x10 3/uL 4.5-11.0 N WBC) RED BLOOD CELL (test code = 4.97 x10 6/uL 4.00-5.60 N RBC) HEMOGLOBIN (test code = HGB) 15.9 g/dL 12.5-16.9 N HEMATOCRIT (test code = HCT) 47.7 % 37.5-50.7 N MEAN CELL VOLUME (test code = 96.0 fL 81.0-99.0 N MCV) MEAN CELL HGB (test code = MCH) 32.0 pg 27.0-33.0 N MEAN CELL HGB CONCETRATION 33.3 g/dL 33.0-37.0 N (test code = MCHC) RED CELL DISTRIBUTION WIDTH CV 13.5 % 11.5-14.5 N (test code = RDW) RED CELL DISTRIBUTION WIDTH SD 48.0 fL 37.0-54.0 N (test code = RDW-SD) PLATELET COUNT (test code = 157 x10 3/uL 150-400 N PLT) MEAN PLATELET VOLUME (test code 10.9 fL 7.0-9.0 H = MPV) NEUTROPHIL % (test code = NT%) 74.8 % 56.0-77.0 N IMMATURE GRANULOCYTE % (test 0.5 % 0.0-2.0 N code = IG%) LYMPHOCYTE % (test code = LY%) 16.1 % 14.0-32.0 N MONOCYTE % (test code = MO%) 7.9 % 4.8-9.0 N EOSINOPHIL % (test code = EO%) 0.3 % 0.3-3.7 N BASOPHIL % (test code = BA%) 0.4 % 0.0-2.0 N NUCLEATED RBC % (test code = 0.0 % 0-0 N NRBC%) NEUTROPHIL # (test code = NT#) 8.02 x10 3/uL 2.0-7.6 H IMMATURE GRANULOCYTE # (test 0.05 x10 3/uL 0.00-0.03 H code = IG#) LYMPHOCYTE # (test code = LY#) 1.72 x10 3/uL 1.0-3.8 N MONOCYTE # (test code = MO#) 0.85 x10 3/uL 0.1-0.8 H EOSINOPHIL # (test code = EO#) 0.03 x10 3/uL 0.0-0.2 N BASOPHIL # (test code = BA#) 0.04 x10 3/uL 0.0-0.2 N NUCLEATED RBC # (test code = 0.00 x10 3/uL 0.0-0.1 N NRBC#) MANUAL DIFF REQUIRED (test code NO = MDIFF) MISCELLANEOUS LAB SEND [id number] 11:22:00 Test Item Value Reference Range Interpretation Comments MISCELLANEOUS LAB SEND NO PATHOLOGY REVIEW OUT (test code = MISCLABSO) Test: 14-3-3 proteinOrdering physician contact information: Dr. Becerra [phone] CBC W/AUTO [id number] 09:40:00 Test Item Value Reference Range Interpretation Comments WHITE BLOOD CELL (test code = 10.3 x10 3/uL 4.5-11.0 N WBC) RED BLOOD CELL (test code = 5.10 x10 6/uL 4.00-5.60 N RBC) HEMOGLOBIN (test code = HGB) 16.4 g/dL 12.5-16.9 N HEMATOCRIT (test code = HCT) 49.7 % 37.5-50.7 N MEAN CELL VOLUME (test code = 97.5 fL 81.0-99.0 N MCV) MEAN CELL HGB (test code = MCH) 32.2 pg 27.0-33.0 N MEAN CELL HGB CONCETRATION 33.0 g/dL 33.0-37.0 N (test code = MCHC) RED CELL DISTRIBUTION WIDTH CV 13.4 % 11.5-14.5 N (test code = RDW) RED CELL DISTRIBUTION WIDTH SD 48.2 fL 37.0-54.0 N (test code = RDW-SD) PLATELET COUNT (test code = 152 x10 3/uL 150-400 N PLT) MEAN PLATELET VOLUME (test code 10.8 fL 7.0-9.0 H = MPV) NEUTROPHIL % (test code = NT%) 73.8 % 56.0-77.0 N IMMATURE GRANULOCYTE % (test 0.5 % 0.0-2.0 N code = IG%) LYMPHOCYTE % (test code = LY%) 16.0 % 14.0-32.0 N MONOCYTE % (test code = MO%) 8.6 % 4.8-9.0 N EOSINOPHIL % (test code = EO%) 0.5 % 0.3-3.7 N BASOPHIL % (test code = BA%) 0.6 % 0.0-2.0 N NUCLEATED RBC % (test code = 0.0 % 0-0 N NRBC%) NEUTROPHIL # (test code = NT#) 7.60 x10 3/uL 2.0-7.6 N IMMATURE GRANULOCYTE # (test 0.05 x10 3/uL 0.00-0.03 H code = IG#) LYMPHOCYTE # (test code = LY#) 1.65 x10 3/uL 1.0-3.8 N MONOCYTE # (test code = MO#) 0.89 x10 3/uL 0.1-0.8 H EOSINOPHIL # (test code = EO#) 0.05 x10 3/uL 0.0-0.2 N BASOPHIL # (test code = BA#) 0.06 x10 3/uL 0.0-0.2 N NUCLEATED RBC # (test code = 0.00 x10 3/uL 0.0-0.1 N NRBC#) MANUAL DIFF REQUIRED (test code NO = MDIFF) BASIC METABOLIC [id number] 09:37:00 Test Item Value Reference Range Interpretation Comments SODIUM (test code = NA) 141 mEq/L 134-147 N POTASSIUM (test code = 3.7 mEq/L 3.4-5.0 N K) CHLORIDE (test code = 109 mEq/L 100-108 H CL) CARBON DIOXIDE (test 25 mEq/l 21-33 N code = CO2) ANION GAP (test code = 10 0-20 N GAP) GLUCOSE (test code = 112 mg/dL 70-110 H GLU) BLOOD UREA NITROGEN 7 mg/dL 7-18 (test code = BUN) GLOMERULAR FILTRATION 91.9 70-80 H Units of measure = RATE (test code = GFR) ml/mi n/1.73 m2 CREATININE (test code = 0.8 mg/dL 0.6-1.3 N CREAT) CALCIUM (test code = 9.2 mg/dL 8.0-10.5 N CA) CSF CELL [id number] 15:26:00 Test Item Value Reference Range Interpretation Comments CSF TUBE # (test code = TUBE #3 - CELL COUNT BFCSFT) CSF APPEARANCE (test code CLEAR CLEAR = APPCSF) CSF WBC (test code = 4 MM3 0-5 N WBCCSF) CSF RBC (test code = 7 MM3 0-0 H RBCCSF) CSF POLY (test code = % 0-7 POLYCSF) CSF LYMPHOCYTE (test code 88 % 28-96 N = LYMPHCSF) CSF EOSINOPHIL (test code % = EOSCSF) CSF BASOPHIL (test code = % BASOCSF) CSF MACROPHAGE (test code 1 % = MACCSF) CSF MONOCYTE (test code = 11 % 16-56 L MONOCSF) CSF [id number] 14:28:00 Test Item Value Reference Range Interpretation Comments CSF COLOR (test code = COLORLESS COLORLESS COLCSF) CSF TUBE # (test code = TUBE #2 - GLU/PROT TUBECSF) CSF GLUCOSE (test code = 60 MG/DL 40-80 N GLUCSF) CSF TOTAL PROTEIN (test 83.0 mg/dL 15-45 H code = PROTCSF) BASIC METABOLIC [id number] 11:33:00 Test Item Value Reference Range Interpretation Comments SODIUM (test code = NA) 142 mEq/L 134-147 N POTASSIUM (test code = 4.2 mEq/L 3.4-5.0 N K) CHLORIDE (test code = 109 mEq/L 100-108 H CL) CARBON DIOXIDE (test 27 mEq/l 21-33 N code = CO2) ANION GAP (test code = 10 0-20 N GAP) GLUCOSE (test code = 112 mg/dL 70-110 H GLU) BLOOD UREA NITROGEN 14 mg/dL 7-18 N (test code = BUN) GLOMERULAR FILTRATION 80.2 70-80 H Units of measure = RATE (test code = GFR) ml/mi n/1.73 m2 CREATININE (test code = 0.9 mg/dL 0.6-1.3 N CREAT) CALCIUM (test code = 8.8 mg/dL 8.0-10.5 N CA) CBC W/AUTO [id number] 11:24:00 Test Item Value Reference Range Interpretation Comments WHITE BLOOD CELL (test code = 7.6 x10 3/uL 4.5-11.0 N WBC) RED BLOOD CELL (test code = 4.44 x10 6/uL 4.00-5.60 N RBC) HEMOGLOBIN (test code = HGB) 14.2 g/dL 12.5-16.9 N HEMATOCRIT (test code = HCT) 43.5 % 37.5-50.7 N MEAN CELL VOLUME (test code = 98.0 fL 81.0-99.0 N MCV) MEAN CELL HGB (test code = MCH) 32.0 pg 27.0-33.0 N MEAN CELL HGB CONCETRATION 32.6 g/dL 33.0-37.0 L (test code = MCHC) RED CELL DISTRIBUTION WIDTH CV 13.7 % 11.5-14.5 N (test code = RDW) RED CELL DISTRIBUTION WIDTH SD 49.3 fL 37.0-54.0 N (test code = RDW-SD) PLATELET COUNT (test code = 135 x10 3/uL 150-400 L PLT) MEAN PLATELET VOLUME (test code 11.2 fL 7.0-9.0 H = MPV) NEUTROPHIL % (test code = NT%) 63.9 % 56.0-77.0 N IMMATURE GRANULOCYTE % (test 0.5 % 0.0-2.0 N code = IG%) LYMPHOCYTE % (test code = LY%) 23.3 % 14.0-32.0 N MONOCYTE % (test code = MO%) 10.1 % 4.8-9.0 H EOSINOPHIL % (test code = EO%) 1.5 % 0.3-3.7 N BASOPHIL % (test code = BA%) 0.7 % 0.0-2.0 N NUCLEATED RBC % (test code = 0.0 % 0-0 N NRBC%) NEUTROPHIL # (test code = NT#) 4.83 x10 3/uL 2.0-7.6 N IMMATURE GRANULOCYTE # (test 0.04 x10 3/uL 0.00-0.03 H code = IG#) LYMPHOCYTE # (test code = LY#) 1.76 x10 3/uL 1.0-3.8 N MONOCYTE # (test code = MO#) 0.76 x10 3/uL 0.1-0.8 N EOSINOPHIL # (test code = EO#) 0.11 x10 3/uL 0.0-0.2 N BASOPHIL # (test code = BA#) 0.05 x10 3/uL 0.0-0.2 N NUCLEATED RBC # (test code = 0.00 x10 3/uL 0.0-0.1 N NRBC#) MANUAL DIFF REQUIRED (test code NO = MDIFF) PATHOLOGY REVIEW [id number] 09:38:00 Test Item Value Reference Range Interpretation Comments NAME OF TEST (test TAU PROTEIN code = NAMEMISC) APPROVAL (test code NO = APPROVAL) PATH REVIEW COMMENT TEST CAN CELLED (test code = PATH AFTER CONS ULTING REVIEW COM) WITH PRITI COOPER NP SIGNATURE (test Josue Segovia, code = SIGNATURE) [facility] MISCELLANEOUS LAB SEND [id number] 09:32:00 Test Item Value Reference Range Interpretation Comments MISCELLANEOUS LAB SEND PATHOLOGY REVIEW REQ OUT (test code = MISCLABSO) Test: CSF TAU proteinOrdering physician contact information: Dr. Becerra [phone] MISCELLANEOUS LAB SEND [id number] 07:51:00 Test Item Value Reference Range Interpretation Comments MISCELLANEOUS LAB SEND NO PATHOLOGY REVIEW OUT (test code = MISCLABSO) Test: RT-QuICOrdering physician contact information: Dr. Becerra [phone] HEAD/BRAIN W/O [id number] 00:00:00 [facility] 1935 Sex: M Name: KAYLYNN MENG [facility] : 1935 Age/S: 85 / M [address] [place] [address] Bl Unit #: [id number] Loc: [place] [address] Phys: Ynes Baker MD Acct: [id number] Dis Date: Status: ADM IN PHONE #: [phone] Exam Date: 04/15/2021 1227 FAX #: [phone] Reason: FALL EXAMS: CPT CODE: [id number] CT HEAD/BRAIN W/O CONT 18968 PROCEDURE INFORMATION: Exam: CT Head Without Contrast Exam date and time: 04/15/2021 12:17 PM Age: 85 years old Clinical indication: Injury or trauma; Fall; Blunt trauma(contusions or hematomas) TECHNIQUE: Imaging protocol: Computed tomography of the headwithout contrast. Radiation optimization: All CT scans at this facility use at least one of these dose optimization techniques: automated exposure control; mA and/or kV adjustment per patient size (includes targeted exams where dose is matched to clinical indication); or iterative reconstruction. COMPARISON: 1. MRI BRAIN W/O CONT 04/13/2021 4:[address] head without contrast 04/13/2021 FINDINGS: Brain: There are generalized involut ional changes. There are extensive areas of diminished attenuation in the cerebral white matter bilateral. The cortical architecture is maintained. The midline structures and posterior fossa contents are unremarkable. There is no intra-axial or extra-axial hemorrhage, mass lesion or mass effect. There is a small indistinct focus of apparent increased attenuati on overlying the left cerebral hemisphere which persist on all images and is consistent with artifact. Cerebral ventricles: Mild prominence of the lateral ventricles is stable and not out of proportion to prominence of the sulci. Paranasal sinuses: Visualized sinuses are unremarkable. No fluid levels. Mastoid air cells: Visualized mastoid air cells are well aerated. Vasculature: Calcified plaque cavernous carotid and vertebral arteries. Bones/joints: The calvarium is intact. Soft tissues: There is a right frontal scalp hematoma. Notes: If there is continued clinical concern further imaging options include MRI. IMPRESSION: 1. Negative for acute intracranial injury. 2. Atrophy and chronic microvascular ischemic changes. at 1251 Reported and signed by: Toro Gonzalez M.D. PAGE 1 Signed Report (CONTINUED) Name: KAYLYNN MENG [facility] : 1935ge/S: 85 / M [address] [place] [address] Unit #: [id number] Loc: [place] [address] Phys: Ynes Baker MD Acct: [id number] Dis Date: Status: ADM IN PHONE#: [phone] Exam Date: 04/15/2021 1227 FAX #: [phone] Reason:FALL EXAMS: CPT CODE: [id number] CT HEAD/BRAIN W/O CONT 82310 <Continued> CC: Ynes Baker MD; Mamadou Leigh MD; José Jimenez MD Technologist:Car Sanders, RT(R)(CT) CTDI: DLP: Trnscb Date/Time: 04/15/2021 (7256) [email or web address] Orig Print D/T: S: 04/15/2021 (2387) PAGE 2 Signed Report- PUNCTURE LUMBAR [id number] 00:00:00 [facility] : 1935 Sex: M FAX: Mamadou Quevedo [phone] [place]: St: [facility] FAX: José Dill MD [phone] FAX: Priti Cooper [phone] Name: KAYLYNN MENG [facility] : 1935 Age/S: 85/M [address] [place] [address] Bl Unit #: [id number] Loc: [place] [address] Phys: Me caron Cooper BOOKKEEPER RECEPTIONIST Acct: [id number] Dis Date: Status: ADM IN PHONE #: [phone] Exam Date: 04/15/2021 1400 FAX #: [phone] Reason: Rapid Progressive Dementia EXAMS: CPT CODE: [id number] [place] [address] PROCEDURE INFORMATION: Exam: IR Lumbar Spinal Puncture With Fluoroscopic Or CT Guidance; Diagnostic or Therapeutic Exam date and time: 04/15/2021 1:50 PM Age: 85 years old Clinical indication: Rapid progressive dementia TECHNIQUE: Imaging protocol: Lumbar spinal puncture with fluoroscopic or CT guidan ce. Diagnostic or therapeutic. Fluoroscopy guidance was provided. COMPARISON: MRA NECK W/O CONT 04/13/2021 3:49 PM RADIATION DOSE METRICS: Fluoroscopy time (seconds): 0.5 MIN Number of fluoro spot images: 1 Reference air kerma (SHARAN): 10 mGy FINDINGS: Advanced practice providers: None. CONSENT AND SEDATION INFO: Consent: The risks, benefits and alternatives of the procedure were discussed. Informed consent was obtained. Time out: Timeout was performed prior to the procedure. Procedure summary: The patient was placed in the prone position. Posterior lower back was sterilely prepped and draped. 1% lidocaine was used for local anesthesia. 22-gauge spinal needle was advanced through the posterior L4-L5 space, into the central canal. Then, cerebrospinal fluid was aspirated. Images were obtained to document the needle placement. Inner stylet was replaced, and the needle was removed. Pressure was applied at the puncture site with adequate hemostasis. Sterile dressing was applied. Surgical tissue or fluid: Total of 10 mL of clear and colorless cerebrospinal fluid was aspirated. Sample was sent for laboratory analysis. Complications: None. No immediate complications. Patient tolerated patient well. IMPRESSION: Technically successful lumbar puncture with fluoroscopic guidance. PAGE 1 Signed Report (CONTINUED) FAX: Mamadou Quevedo [phone] [place]: St: [facility] FAX: José Dill MD [phone] FAX: Priti Busby [phone] Name: KAYLYNN MENG : 1935 Age/S: 85/M [address] [place] [address] Blvd Unit #: [id number] Loc: [place] [address] Phys: Priti Busby BOOKKEEPER RECEPTIONIST Acct: [id number] Dis Date: Status: ADM IN PHONE #: [phone] Exam Date: 04/15/2021 1400 FAX #: [phone] Reason: Rapid Progressive Dementia EXAMS: CPT CODE: [id number] [place] [address] &lt ;Continued> at 6549 Reported and signed by: Alexis Douglas D.O. CC: Mamadou Leigh MD; José Jimenez MD; Priti Cooper NP Technologist: Mery Lawrence RT(R) Trnscrd Date/Time/By: 04/15/2021 (4857) : By: [email or web address] Orig Print D/T: S: 04/15/2021 (5806) PAGE 2 Signed ReportCOVID 19 Asymptomatic IH [id number] 15:33:00 Test Item Value Reference Range Interpretation Comments COVID 19 Asymptomatic Negative Negative A nega tive result is IH AG (test code = presumpti ve and should COVNONPUIAG) be confirmedwit h an FDA authorized mole cular assay, if neces lora forpatient marsha gement.A positive result does not rule out co-inf ections withother patho gens.This test detects angeles th viable (live) and non-viable,SARS -CoV, and SARS-CoV-2. Tacos t performance dep ends on theamount of vi dennise (antigen) in th e sample.This tacos t has not been FDA cleare d or approved; the t est hasbeen authori zed by FDA under an Em ergency Use Authorizati on(EUA) for use by labo ratories certified under the CLIA thatmeet the requirements to perform moderate, high or waivedcomplexit y tests. MISCELLANEOUS LAB SEND [id number] 14:44:00 Test Item Value Reference Range Interpretation Comments MISCELLANEOUS LAB SEND NO PATHOLOGY REVIEW OUT (test code = MISCLABSO) Test: Enolase Neuron SpecificOrdering physician contact information: DR. Becerra [phone] PLASMA [id number] 11:02:00 Test Item Value Reference Range Interpretation Comments RAPID PLASMA REAGIN (test code = NONREACTIVE NONREACTIVE RPR) CBC W/AUTO [id number] 08:37:00 Test Item Value Reference Range Interpretation Comments WHITE BLOOD CELL (test code = 9.0 x10 3/uL 4.5-11.0 N WBC) RED BLOOD CELL (test code = 4.76 x10 6/uL 4.00-5.60 N RBC) HEMOGLOBIN (test code = HGB) 15.2 g/dL 12.5-16.9 N HEMATOCRIT (test code = HCT) 45.6 % 37.5-50.7 N MEAN CELL VOLUME (test code = 95.8 fL 81.0-99.0 N MCV) MEAN CELL HGB (test code = MCH) 31.9 pg 27.0-33.0 N MEAN CELL HGB CONCETRATION 33.3 g/dL 33.0-37.0 N (test code = MCHC) RED CELL DISTRIBUTION WIDTH CV 13.7 % 11.5-14.5 N (test code = RDW) RED CELL DISTRIBUTION WIDTH SD 48.8 fL 37.0-54.0 N (test code = RDW-SD) PLATELET COUNT (test code = 150 x10 3/uL 150-400 N PLT) MEAN PLATELET VOLUME (test code 11.6 fL 7.0-9.0 H = MPV) NEUTROPHIL % (test code = NT%) 62.0 % 56.0-77.0 N IMMATURE GRANULOCYTE % (test 0.2 % 0.0-2.0 N code = IG%) LYMPHOCYTE % (test code = LY%) 25.9 % 14.0-32.0 N MONOCYTE % (test code = MO%) 10.3 % 4.8-9.0 H EOSINOPHIL % (test code = EO%) 1.0 % 0.3-3.7 N BASOPHIL % (test code = BA%) 0.6 % 0.0-2.0 N NUCLEATED RBC % (test code = 0.0 % 0-0 N NRBC%) NEUTROPHIL # (test code = NT#) 5.55 x10 3/uL 2.0-7.6 N IMMATURE GRANULOCYTE # (test 0.02 x10 3/uL 0.00-0.03 N code = IG#) LYMPHOCYTE # (test code = LY#) 2.32 x10 3/uL 1.0-3.8 N MONOCYTE # (test code = MO#) 0.92 x10 3/uL 0.1-0.8 H EOSINOPHIL # (test code = EO#) 0.09 x10 3/uL 0.0-0.2 N BASOPHIL # (test code = BA#) 0.05 x10 3/uL 0.0-0.2 N NUCLEATED RBC # (test code = 0.00 x10 3/uL 0.0-0.1 N NRBC#) MANUAL DIFF REQUIRED (test code NO = MDIFF) BASIC METABOLIC [id number] 08:14:00 Test Item Value Reference Range Interpretation Comments SODIUM (test code = NA) 140 mEq/L 134-147 N POTASSIUM (test code = 3.8 mEq/L 3.4-5.0 N K) CHLORIDE (test code = 109 mEq/L 100-108 H CL) CARBON DIOXIDE (test 26 mEq/l 21-33 N code = CO2) ANION GAP (test code = 9 0-20 N GAP) GLUCOSE (test code = 131 mg/dL 70-110 H GLU) BLOOD UREA NITROGEN 13 mg/dL 7-18 N (test code = BUN) GLOMERULAR FILTRATION 80.4 70-80 H Units of measure = RATE (test code = GFR) ml/mi n/1.73 m2 CREATININE (test code = 0.9 mg/dL 0.6-1.3 N CREAT) CALCIUM (test code = 8.8 mg/dL 8.0-10.5 N CA) BASIC METABOLIC [id number] 10:33:00 Test Item Value Reference Range Interpretation Comments SODIUM (test code = NA) 145 mEq/L 134-147 N POTASSIUM (test code = 3.6 mEq/L 3.4-5.0 N K) CHLORIDE (test code = 108 mEq/L 100-108 N CL) CARBON DIOXIDE (test 29 mEq/l 21-33 N code = CO2) ANION GAP (test code = 11 0-20 N GAP) GLUCOSE (test code = 96 mg/dL 70-110 GLU) BLOOD UREA NITROGEN 15 mg/dL 7-18 N (test code = BUN) GLOMERULAR FILTRATION 80.4 70-80 H Units of measure = RATE (test code = GFR) ml/mi n/1.73 m2 CREATININE (test code = 0.9 mg/dL 0.6-1.3 N CREAT) CALCIUM (test code = 9.0 mg/dL 8.0-10.5 N CA) THROMBOPLASTIN TIME [id number] 10:25:00 Test Item Value Reference Range Interpretation Comments THROMBOPLASTIN TIME 32.2 Seconds 25.0-39.5 N Ther apeutic PARTIAL (test code = Range: 50.4 - 88.3 PTT) Seconds Effective 07/16/2018 CBC W/O [id number] 10:17:00 Test Item Value Reference Range Interpretation Comments WHITE BLOOD CELL (test code = 9.8 x10 3/uL 4.5-11.0 N WBC) RED BLOOD CELL (test code = 4.73 x10 6/uL 4.00-5.60 N RBC) HEMOGLOBIN (test code = HGB) 15.1 g/dL 12.5-16.9 N HEMATOCRIT (test code = HCT) 46.5 % 37.5-50.7 N MEAN CELL VOLUME (test code = 98.3 fL 81.0-99.0 N MCV) MEAN CELL HGB (test code = MCH) 31.9 pg 27.0-33.0 N MEAN CELL HGB CONCETRATION 32.5 g/dL 33.0-37.0 L (test code = MCHC) RED CELL DISTRIBUTION WIDTH CV 14.0 % 11.5-14.5 N (test code = RDW) RED CELL DISTRIBUTION WIDTH SD 50.9 fL 37.0-54.0 N (test code = RDW-SD) PLATELET COUNT (test code = 148 x10 3/uL 150-400 L PLT) MEAN PLATELET VOLUME (test code 11.1 fL 7.0-9.0 H = MPV) GLUCOSE [id number] 09:49:00 Test Item Value Reference Range Interpretation Comments GLUCOSE BEDSIDE (test 87 MG/DL 70-110 N Perfor med by certified code = GLUBED) 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 [facility] - DOP ART SGL LEVEL [id number] 00:00:00 [facility] 11/26/1936 Sex: M Name: KAYLYNN MENG [facility] : 11/26/1936 Age/S: 84 / M [address] [place] [address] Unit #: [id number] Loc: [place] [address] Phys: Abad Hassan MD Acct: [id number] Dis Date: Status: ADM IN PHONE #: [phone] Exam Date: 04/13/2021 1658 FAX #: [phone] Reason: Bilateral leg ischemia, left leg pain, fall Report Has Been Amended EXAMS: CPT CODE: [id number] DOP ART SGL LEVEL HILARIO [id number] Addendum - 04/13/2021 SIGNED 04/13/2021 ADDENDUM: [id number] US/DOPASGLB Critical/significant findings and need for immediate communication to the requesting physician or on-call physician were discussed with the patient's charge nurse at 5:19 PM BARREL FINISHER on 04/13/2021. The findingswere acknowledged and understood. at 5842 Reported and signed by: Alexis Douglas D.O. Report PROCEDURE INFORMATION: Exam: US Duplex Lower Extremity Arteries Exam date and time: 04/13/2021 4:41 PM Age: 84 years old Clinical indication: Pain; Leg, upper and leg, lower; Left; Additional info: Bilateral leg ischemia, left leg pain, fall TECHNIQUE: Imaging protocol: Real-time ultrasound scan of the arteries of the b ilateral lower extremities with 2-D boggs scale, color Doppler flow and spectral waveform analysis. Images documented and saved. COMPARISON: No relevant prior studies available. FINDINGS: Right common femoral artery: No occlusion or significant stenosis. Multiphasic waveform. Right superficial femoral artery: No occlusion or significant stenosis. Multiphasic waveform. Right popliteal artery: No occlusion or significant stenosis. Multiphasic waveform. Right calf/foot arteries: Visualized posterior tibial and dorsalis pedis arteries show no occlusion. Multiphasic waveforms. Left common femoral artery: No occlus ion or significant stenosis. Multiphasic waveform. Left superficial femoral artery: Noocclusion or significant stenosis. Multiphasic waveform. Left popliteal artery: No flow is seen in the left popliteal artery. There is monophasic flow in the left posterior tibial PAGE 1 Signed Report (CONTINUED) Name: KAYLYNN MENG [facility] : 11/26/1936 Age/S: 84 / M [address] [place] [address] Blvd Unit #: [id number] Loc: [place], [place] [address]Mggk: Abad Hassan MD Acct: [id number] Dis Date: Status: ADM IN PHONE #: [phone] Exam Date: 04/13/2021 1658 FAX #: [phone] Reason: Bilateral leg ischemia, left leg pain, fall Report Has Been Amended EXAMS: CPT CODE: [id number] DOP ART SGL LEVEL HILARIO 59515 <Continued> artery and dorsalis pedis artery. Right VIRGILIO measures1.1 and left VIRGILIO measures 0.7. IMPRESSION: No flow is seen in the left popliteal artery. There is monophasic flow in the left posterior tibial artery and dorsalis pedis artery. at 1716 Reported and signed by: Alexis Douglas D.O. CC: Abad Hassan MD; Mamadou Leigh MD; José Jimenez MD Technologist: Raya Aguirre; Criselda Callejas RDMS(AB) Trnohb Date/Time: 04/13/2021 (1715) [email or web address] Orig Print D/T: S: 04/13/2021 (171) Probe: PAGE 2 Signed Report- MRA NECK W/O [id number] 00:00:00 [facility] : 11/26/1936 Sex: M FAX: Mamadou Quevedo [phone] [place]: St: ADM FAX: José Dill MD [phone] FAX: Priti Cooper [phone] Name: KAYLYNN MENG [facility] : 11/26/1936 Age/S: 84/M [address] [place] [address] Blvd Unit #: [id number] Loc: [place] [place] [address] Phys: Me caron Cooper BOOKKEEPER RECEPTIONIST Acct: [id number] Dis Date: Status: ADM IN PHONE #: [phone] Exam Date: 04/13/2021 1620 FAX #: [phone] Reason: Afib/AMS EXAMS: CPT CODE: [id number] MRA NECK W/O CONT 23429 PROCEDURE INFORMATION: Exam: MRA Neck Without Contrast Exam date and time: 04/13/2021 3:49 PM Age: 84 years old Clinical indication: Other: Confusion; Additional info: Afib/ams TECHNIQUE: Imaging protocol: Magneticresonance angiography of the neck without contrast. COMPARISON: US DUP EXTRACRANIAL HILARIO 04/13/2021 8:52 AM FINDINGS: Right common carotid artery: No stenosis. No dissection or occlusion. Right internal carotid artery: No stenosis of the extracranial segment. No dissection or occlusion. Right external carotid artery: No stenosis. No dissection or occlusion of the origin. Right vertebral artery: No stenosis. No dissection or occlusion. Left common carotid artery: No stenosis. No dissection or occlusion. Left internal carotid artery: No stenosis of the extracranial segment. No dissection or occlusion. Left external carotid artery: No stenosis. No dissection or occlusion of the origin. Left vertebral artery: No stenosis. No dissection or occlusion. IMPRESSION: There is no definite evidence of significant stenosis or other abnormality of both common carotid arteries and the visible portions both internal and external carotid arteries are intact without significant stenosis or other abnormality. REFERENCES: NASCET CRITERIA. The degree of internal carotid artery stenosis is based on NASCET criteria. Normalis no stenosis. Mild is less than 50% stenosis. Moderate is 50-69% stenosis. Severe is 70% to 99% stenosis. Total occlusion is no detectable patent lumen. Electro nically Signed by Awais Lim on 04/13/2021 at 1745 Reported and signed by: Vinay Lim M.D. PAGE 1 Signed Report (CONTINUED) FAX: Mamadou Quevedo [phone] [place]: St: [facility] FAX: José Dill MD [phone] FAX: Priti Cooper [phone] Name: KAYLYNN MENG [facility] : 11/26/1936 Age/S: 84/M [address] [place] [address] Blvd Unit #: [id number] Loc: [place] [address] Phys: Priti Cooper BOOKKEEPER RECEPTIONIST Acct: [id number] Dis Date: Status: ADM IN PHONE #: [phone] Exam Date: 04/13/2021 1620 FAX #: [phone] Reason: Afib/AMS EXAMS: CPT CODE: [id number] MRA NECK W/O CONT 23166 <Continued> CC: Mamadou Leigh MD; José Jimenez MD; Priti Cooper NP Technologist: RT Nelsy(R)(CT) Trnscrd Date/Time/By: 04/13/2021 (6276) : By: [email or web address] Orig Print D/T: S: 04/13/2021 (3139) PAGE 2 Signed Report- MRA HEAD W/O [id number] 00:00:00 [facility]GR[facility]LYNN : 11/26/1936 Sex: M FAX: Mamadou Quevedo [phone] [place]: St: ADM FAX: José Dill MD [phone] FAX: Priti Cooper [phone] [facility] 11/26/1936 Age/S: 84/M [address] [place] [address] Blvd Unit #: [id number] Loc: [address] [place] [address] Phys: Me caron Cooper NP Acct: [id number] Dis Date: Status: ADM IN PHONE #: [phone] Exam Date: 04/13/2021 1620 FAX #: [phone] Reason: Afib/AMS EXAMS: CPT CODE: [id number] MRA HEAD W/O CONTRAST 59414 PROCEDURE INFORMATION: Exam: MRA Head Without C ontrast; Arteriography Exam date and time: 04/13/2021 3:42 PM Age: 84 years old Clinical indication: Other: Confusion; Additional info: Afib/ams TECHNIQUE: Imaging protocol: Magnetic resonance angiography head without contrast. Exam focused on the arteries. COMPARISON: CT HEAD/BRAIN W/O CONT 04/13/2021 10:06 AM FINDINGS: ANTERIOR CIRCULATION: Right internal carotid artery: Intracranial segment is patent with no significant stenosis. No aneurysm. Right middle cerebral artery: No occlusion or significant stenosis. No aneurysm. Right anterior cerebral artery: The anterior communicating arteryis probably patent. Left internal carotid artery: Intracranial segment is patent with no significant stenosis. No aneurysm. Left middle cerebral artery: No occlusion or significantstenosis. No aneurysm. Left anterior cerebral artery: No occlusion or significant stenosis. No aneurysm. POSTERIOR CIRCULATION: Right vertebral artery: No occlusion or significant stenosis. No aneurysm. Left vertebral artery: No occlusion or significantstenosis. No aneurysm. Basilar artery: No occlusion or significant stenosis. No aneurysm. A left anterior inferior cerebellar artery branches seen. Proximal superior cerebellar arteries bilaterally are grossly unremarkable. Right posterior cerebral artery: No occlusion or significant stenosis. No aneurysm. Left posterior cerebral artery: No occlusion or significant stenosis. No aneurysm. Other vasculature: Posterior communicating arteries are not visualized bilaterally. Proximal ophthalmic artery branches bilaterally are unremarkable, insofar as they can be assessed. IMPRESSION: No stenosis or occlusion. PAGE 1 Signed Report (CONTINUED) FAX: Mamadou Quevedo [phone] [place]: St: ADM FAX: José Dill MD [phone] FAX: Priti Cooper [phone] Name: KAYLYNN MENG [facility] Jorje Heck : 11/26/1936 Age/S: 84/M [address] [place] [address] Unit #: [id number] L oc: [place] [address] Phys: Priti Cooper NP Acct: [id number] Dis Date: Status: ADM IN PHONE #: [phone] Exam Date: 04/13/20210 FAX #: [phone] Reason: Afib/AMS EXAMS: CPT CODE: [id number] MRA HEAD W/O CONTRAST 41867 <Continued> at 1820 Reported and signedby: Baylee Iraheta M.D. CC: Mamadou Leigh MD; José Foley MD; Priti Cooper NP Technologist: RT Nelsy(Aleida)(CT) Trnscrd Date/Time/By: (1819) : By: [email or web address] Radha Print D/T: S: 04/13/2021 (1819) PAGE 2 Signed Report- CT HEAD/BRAIN W/O [id number] 00:00:00 [facility] 11/26/1936 Sex: M Name: KAYLYNN MENG [facility] : 11/26/1936 Age/S: 84 / M [address] [place] [address] Unit #: [id number] Loc: [place] [address] Phys: Priti Cooper NP Acct: [id number] Dis Date: Status: ADM IN PHONE #: [phone] Exam Date: 04/13/2021 [facility] FAX #: [phone] Reason: CHANGE IN MENTAL STATUS EXAMS: CPT CODE: [id number] CT HEAD/BRAIN W/O CONT 62575 PROCEDURE INFORMATION: Exam: CT Head Without Contrast Exam date and time: 04/13/2021 10:06 AM Age: 84 years old Clinical indication: Altered mental status/memory loss; Additional info: Change in mental status TECHNIQUE: Imaging protocol: Computed tomography of the head without contrast. Radiation optimization: All CT scans at this facility use at le ast one of these dose optimization techniques: automated exposure control; mA and/or kV adjustment per patient size (includes targeted exams where dose is matched to clinical indication); or iterative reconstruction. COMPARISON: CT HEAD/BRAIN W/O CONT 04/12/2021 8:43 PM FINDINGS: Brain: No acute territorial infarct or intracranial hemorrhage. No mass effect or midline shift. Diffuse cerebral atrophy and advanced severe chronic small vessel ischemic change. Marked atherosclerotic calcification of the distal internal carotid and vertebral arteries. Cerebral ventricles: No ventriculomegaly. Paranasal sinuses: Visualized sinuses are unremarkable. No fluid levels. Mastoid air cells: Visualized mastoid air cells are well aerated. Bones/joints: No acute displaced fracture. Soft tissues: Unremarkable. IMPRESSION: No acute territorial infarct or intracranial hemorrhage detected. COMMENTS: If there is further clinical concern for intracranial pathology, MRI of the brain may be performed for further assessment. at 1020 Reported and signed by: Hill Lovell M.D. CC: Mamadou Leigh MD; José Jimenez MD; Priti Cooper NP Technologist:RT Lidya(R)(CT) CTDI: DLP: Trnscb Date/Time: 04/13/2021 (1019) [email or web address] Orig Print D/T: S: 04/13/2021 (5336) PAGE 1 Signed Report- DUP EXTRACRANIAL HILARIO 2021-04-13 00:00:00 [facility] 11/26/1936 Sex: M Name: KAYLYNN MENG [facility] : 11/26/1936 Age/S: 84 / M [address] [place] [address] Blvd Unit #: [id number] Loc: [place] [address] Phys: José Jimenez MD Acct: [id number] Dis Date: Status: ADM IN PHONE #: [phone] Exam Date: 04/13/2021923 FAX #: [phone] Reason: r/o carotid stenosis EXAMS: CPT CODE: [id number] DUP EXTRACRANIAL HILARIO 73088 PROCEDURE INFORMATION: Exam: US Duplex Bilateral Extracranial Arteries, Carotid ArteriesExam date and time: 04/13/2021 8:52 AM Age: 84 years old Clinical indication: Altered mental status/memory loss; Confusion or disorientation; Additional info: R/O carotid stenosis TECHNIQUE: Imaging protocol: Real-time Duplex ultrasound scan of the bilateral car otid and vertebral arteries combining boggs scale, color Doppler and spectral waveform analysis. Bilateral exam. Exam focused on the carotid arteries. COMPARISON: CT HEAD/BRAIN W/O CONT 04/12/2021 8:43 PM FINDINGS: Right common carotid artery: Plaque formation. No occlusion or stenosis. Waveforms are normal. Right internal carotid artery: Plaque formation. No occlusion or stenosis. Waveforms are normal. Right ICA/CCA ratio: Withinnormal limits. Right external carotid artery: No stenosis in the origin. Right vertebral artery: Not seen secondary to patient positioning. Left common carotid artery: Plaque formation. No occlusion or stenosis. Waveforms are normal. Left internal carotid artery: Plaque formation. No occlusion or stenosis. Waveforms are normal. Left ICA/CCA ratio: Within normal limits. Left external carotid artery: No stenosis in the origin. Left vertebral artery: Unremarkable. Antegrade flow. IMPRESSION: No carotid arterial stenosis. REFERENCES: SRU CRITERIA. The degree of internal carotid artery stenosis is based on criteria defined by the Society of Radiologists in Ultrasound (SRU). Normal is nostenosis. Mild is less than 50% stenosis. Moderate is 50-69% stenosis. Severe is greater than 69% stenosis to near occlusion. Near occlusion is a markedly narrowed lumen. Total occlusion is no detectable patent lumen. at 0949 Reported and signed by: Yair Paez M.D. PAGE 1 Signed Report (CONTINUED) Name: KAYLYNN MENG [facility] : 11/26/1936 Age/S: 84 / M [address] [place] [address] Blvd Unit #: [id number] Loc: [place] [address] Phys: José Jimenez MD Acct: [id number] Dis Date: Status: ADM IN PHONE #: [phone] Exam Date: 04/13/2021923 FAX #: [phone] Reason: r/o carotid stenosis EXAMS: CPT CODE: [id number] DUP EXTRACRANIAL HILARIO 36229 <Continued> CC: Mamadou Leigh MD; Yuni Jimenez MD Technologist: Sofiya Callejas Trnohb Date/Time: 04/13/2021(0949) [email or web address] Orig Print D/T: S: 04/13/2021 (4276) Probe: PAGE 2 Signed Report UA RFLX MICR CULT IF [id number] 21:42:00 Test Item Value Reference Range Interpretation Comments UA COLOR (test code = COLU) YELLOW YEL/STRAW UA APPEARANCE (test code = CLEAR CLEAR APPU) UA GLUCOSE DIPSTICK (test code NEGATIVE NEGATIVE = DGLUU) UA BILIRUBIN DIPSTICK (test NEGATIVE NEGATIVE code = BILU) UA KETONE DIPSTICK (test code NEGATIVE NEGATIVE = KETU) UA SPECIFIC GRAVITY (test code 1.028 1.005-1.030 N = SGU) UA BLOOD DIPSTICK (test code = NEGATIVE NEGATIVE MAXINE) UA PH DIPSTICK (test code = 5.0 5.0-7.0 N SAM) UA PROTEIN DIPSTICK (test code NEGATIVE NEGATIVE = PROU) UA UROBILINIOGEN DIPSTICK 0.2 mg/dL 0.2-1.0 (test code = URO) UA NITRITE DIPSTICK (test code NEGATIVE NEGATIVE = ALINA) UA LEUKOCYTE ESTERASE DIPSTICK NEGATIVE NEGATIVE (test code = LEUU) UA WBC (test code = WBCU) 0-3 WBC/HPF 0-3 UA RBC (test code = RBCU) 0-3 RBC/HPF 0-3 UA WBC NO REFLEX (test code = 0-3 WBC/HPF 0-3 WBCUCL) UA BACTERIA (test code = BACU) NONE SEEN /HPF NONE SEEN UA SQUAMOUS CELLS (test code = NONE SEEN /HPF NONE SEEN SQU) UA MUCUS (test code = MUCU) TRACE /LPF NONE SEEN Indication for culture: RiskForSepsis-no oth srcSpecimen Description: CLEAN CATCHCOVID 19 Asymptomatic IH [id number] 20:36:00 Test Item Value Reference Range Interpretation Comments COVID 19 Asymptomatic Negative Negative A nega tive result is IH AG (test code = presumpti ve and should COVNONPUIAG) be confirmedwit h an FDA authorized mole cular assay, if neces lora forpatient marsha gement.A positive result does not rule out co-inf ections withother patho gens.This test detects angeles th viable (live) and non-viable,SARS -CoV, and SARS-CoV-2. Tacos t performance dep ends on theamount of vi dennise (antigen) in th e sample.This tacos t has not been FDA cleare d or approved; the t est hasbeen authori zed by FDA under an Em ergency Use Authorizati on(EUA) for use by labo ratories certified under the CLIA thatmeet the requirements to perform moderate, high or waivedcomplexit y tests. BASIC METABOLIC [id number] 20:18:00 Test Item Value Reference Range Interpretation Comments SODIUM (test code = NA) 144 mEq/L 134-147 N POTASSIUM (test code = 3.7 mEq/L 3.4-5.0 N K) CHLORIDE (test code = 108 mEq/L 100-108 N CL) CARBON DIOXIDE (test 29 mEq/l 21-33 N code = CO2) ANION GAP (test code = 11 0-20 N GAP) GLUCOSE (test code = 67 mg/dL 70-110 L GLU) BLOOD UREA NITROGEN 17 mg/dL 7-18 N (test code = BUN) GLOMERULAR FILTRATION 71.2 70-80 N Units of measure = RATE (test code = GFR) ml/mi n/1.73 m2 CREATININE (test code = 1.0 mg/dL 0.6-1.3 N CREAT) CALCIUM (test code = 9.5 mg/dL 8.0-10.5 N CA) HEPATIC FUNCTION [id number] 20:18:00 Test Item Value Reference Range Interpretation Comments TOTAL PROTEIN (test code = PROT) 7.1 g/dL 6.4-8.2 N ALBUMIN (test code = ALB) 4.00 g/dL 3.4-5.0 N BILIRUBIN TOTAL (test code = BILT) 1.10 mg/dL 0.0-1.0 H BILIRUBIN DIRECT (test code = 0.40 MG/DL 0.0-0.30 H BILD) SGOT/AST (test code = AST) 23 IUnit/L 15-37 N SGPT/ALT (test code = ALT) 14 IUnit/L 30-65 L ALKALINE PHOSPHATASE TOTAL (test 89 IUnit/L 20-125 N code = ALKP) BILIRUBIN INDIRECT (test code = 0.70 MG/DL BILIND) TROP-I HIGH [id number] 20:18:00 Test Item Value Reference Range Interpretation Comments TROP-I HIGH 40 ng/L 0-54 N CAUTION: Units of the SENSITIVITY (test current te st methodology code = TROPIHS) (ng/L) diffe rfrom the prior test methodolog y (ng/mL) by a factor of 1000. 99th Percentile Upper Reference Limit (URL): Females: 34 ng/LMales: 54 ng/L In order to distin guish acute elevations of h igh sensitivitytrop onin from other clinical conditions, the FourthUnive rsal Definition of M yocardial Infarction stre ssesclinical assessment and the demonstration o f a rise and/orfall in s erial troponin result s above the URL. These resu lts were obtained using [employer] IM TnI Hreagent. Results from di fferent methodologies s hould not becompared to o ne another as quantitative results and URLs mayvary by method. PROTHROMBIN [id number] 20:13:00 Test Item Value Reference Range Interpretation Comments PROTHROMBIN TIME 12.9 SECONDS 9.3-12.9 N PATIENT (test code = PTP) INTERNATIONAL NORMAL 1.2 0.8-1.2 N TARGET RATIO (test code = INR BY IN DICATION INR) Indication INR1. Prophyl axis of venous thrombos is 2.0 - 3. 0 (orthopedic ly aura), Prophylaxis of venous thrombos is (other than hig h-risk surgery), Raine tment of Deep Vein Thrombosis/Pulm onary Embolism, Preve ntion of systemic emb olism - Tissue heart va lves, Acute Myocardia l Infarction (to prevent systemic embo lism), Valvular heart disease, Atri al Fibrillation, Bileaflet mecha nical valve in aortic position.2. Mec hanical prosthetic valv es (high risk), 2.5 - 3.5 Presence of Lupus Anticoagu lant or Antiphospholi pid Antibodies, Pre vention of systemic e mbolism - Acute Myocard ial Infarction (t o prevent recurre nt infarct). THROMBOPLASTIN TIME [id number] 20:13:00 Test Item Value Reference Range Interpretation Comments THROMBOPLASTIN TIME 31.5 Seconds 25.0-39.5 N Ther apeutic PARTIAL (test code = Range: 50.4 - 88.3 PTT) Seconds Effective 07/16/2018 LACTIC [id number] 20:11:00 Test Item Value Reference Range Interpretation Comments LACTIC ACID (test code = LACT) 1.3 mmol/L 0.4-1.9 N CBC W/AUTO [id number] 19:57:00 Test Item Value Reference Range Interpretation Comments WHITE BLOOD CELL (test code = 9.3 x10 3/uL 4.5-11.0 N WBC) RED BLOOD CELL (test code = 5.00 x10 6/uL 4.00-5.60 N RBC) HEMOGLOBIN (test code = HGB) 16.0 g/dL 12.5-16.9 N HEMATOCRIT (test code = HCT) 48.2 % 37.5-50.7 N MEAN CELL VOLUME (test code = 96.4 fL 81.0-99.0 N MCV) MEAN CELL HGB (test code = MCH) 32.0 pg 27.0-33.0 N MEAN CELL HGB CONCETRATION 33.2 g/dL 33.0-37.0 N (test code = MCHC) RED CELL DISTRIBUTION WIDTH CV 14.1 % 11.5-14.5 N (test code = RDW) PLATELET COUNT (test code = 164 x10 3/uL 150-400 N PLT) NEUTROPHIL % (test code = NT%) 66.3 % 56.0-77.0 N LYMPHOCYTE % (test code = LY%) 21.5 % 14.0-32.0 N NEUTROPHIL # (test code = NT#) 6.13 x10 3/uL 2.0-7.6 N LYMPHOCYTE # (test code = LY#) 1.99 x10 3/uL 1.0-3.8 N MANUAL DIFF REQUIRED (test code NO = MDIFF) RED CELL DISTRIBUTION WIDTH SD 50.3 fL 37.0-54.0 N (test code = RDW-SD) MEAN PLATELET VOLUME (test code 10.7 fL 7.0-9.0 H = MPV) IMMATURE GRANULOCYTE % (test 0.3 % 0.0-2.0 N code = IG%) MONOCYTE % (test code = MO%) 10.6 % 4.8-9.0 H EOSINOPHIL % (test code = EO%) 0.8 % 0.3-3.7 N BASOPHIL % (test code = BA%) 0.5 % 0.0-2.0 N NUCLEATED RBC % (test code = 0.0 % 0-0 N NRBC%) IMMATURE GRANULOCYTE # (test 0.03 x10 3/uL 0.00-0.03 N code = IG#) MONOCYTE # (test code = MO#) 0.98 x10 3/uL 0.1-0.8 H EOSINOPHIL # (test code = EO#) 0.07 x10 3/uL 0.0-0.2 N BASOPHIL # (test code = BA#) 0.05 x10 3/uL 0.0-0.2 N NUCLEATED RBC # (test code = 0.00 x10 3/uL 0.0-0.1 N NRBC#) - CT ANGIO [id number] 00:00:00 [facility] 11/26/1936 Sex: M Name: KAYLYNN MENG [facility] : 11/26/1936 Age/S: 84 / M [address] [place] [address] Unit #: [id number] Loc: [place] [address] Phys: Nettie Mckeon Afua APRNNP Acct: [id number] Dis Date: Status: REG ER PHONE #: [phone] Exam Date: 04/12/20212041 FAX #: [phone] Reason: UNRESPONSIVE EPISODE YDAY S/P ANGIOGRAM EXAMS: CPT CODE: [id number] CT ANGIO CHEST [address] [place] OCEDURE INFORMATION: Exam: CTA Chest With Contrast Exam date and time: 04/12/2021 8:43 PM Age: 84 years old Clinical indication: Other: Syncope; Additional info: Unresponsive episode yday S/P angiogram TECHNIQUE: Imaging protocol: Computed tomographic angiography of the chest with contrast. 3D rendering (Not supervised by radiologist): MIP and/or 3D reconstructed images were created by the technologist. Radiationoptimization: All CT scans at this facility use at least one of these dose optimization techniques: automated exposure control; mA and/or kV adjustment per patient size (includes targeted exams where dose is matched to clinical indication); or iterative reconstruction. Contrast material: [id number]; Contrast volume: 100 ml; Contrast route: INTRAVENOUS (IV) COMPARISON: CR XR CHEST 1V 04/12/2021 6:00 PM FINDINGS: PULMONARY ARTERIES: The pulmonary arteries appear to enhance normally. No pulmonary artery filling defects are detected to suggest acute pulmonary embolism. MEDIASTINUM: Fusiform ectasia of the of the thoracic aorta is present with the ascending aorta having a diameter of 3.7 cm. There is no evidence of aortic dissection. Atherosclerotic calcification is present in the aorta, proximal great vessels and coronary arteries. There is no evidence of a mediastinal mass or enlarged mediastinal lymph nodes. The heart is enlarged. No significant pericardial fluid collections are noted. PLEURAL SPACES: No acute pleural space abnormalities are detected. LUNGS: The lungs demonstrate evidence of emphysema. Mild bronchial wall thickening is present, being most apparent in the lower lobes, with several endobronchial filling defects likely representing inflammatory debris. No consolidation concerning for pneumonia is identified. No pulmonary masses are detected. UPPER ABDOMEN: The included upper abdominal organs are unremarkable. ADDITIONAL FINDINGS: None. IMPRESSION: 1. No CT evidence of acute pulmonary embolism. 2. Mild bronchial wall thickening is present, suggesting bronchitis, with several lower lobe endobronchial filling defects likely representing inflammatory debris. There is no CT evidence of acute pneumonia. PAGE 1 Signed Report (CONTINUED) Name: KAYLYNN MENG [facility] : 11/26/1936 Age/S: 84 / M [address] [place] [address] Unit #: [id number] Loc: [place] [address] Phys: Nettie Mckeon [facility] Acct: [id number] Dis Date: Status: REG ER PHONE #: [phone] Exam Date: 04/12/20212041 FAX #: [phone] Reason: UNRESPONSIVE EPISODE YDAY S/P ANGIOGRAM EXAMS: CPT CODE: [id number] CT ANGIO CHEST 09200 <Continued> SL:131 Electronically Signedby Awais Garay on 04/12/2021 at 2116 Reported and signed by: Kaylynn Garay M.D. CC: Mamadou Leigh MD; Nettie Mckeon Technologist:Chandana Garsia, (R)(CT) CTDI:DLP: Trnscb Date/Time: 04/12/2021 (2115) Alexa Orig Print D/T: S: 04/12/2021 (2115) PAGE 2 Signed Report- CT HEAD/BRAIN W/O [id number] 00:00:00 [facility] 11/26/1936 Sex: M Name: KAYLYNN MENG [facility] : 11/26/1936 Age/S: 84 / M [address] [place] [address] Blvd Unit #: [id number] Loc: [place] [address] Phys: Nettie Mckeon Acct: [id number] Dis Date: Status: REG ER PHONE #: [phone] Exam Date: 04/12/20212038 FAX #: [phone] Reason: Altered Mental Status SINCE YESTERDAY EXAMS: CPT CODE: [id number] CT HEAD/BRAIN W/O CONT 36218 PROCEDURE INFORMATION: Exam: CT Head Without Contrast Exam date and time: 04/12/2021 8:43PM Age: 84 years old Clinical indication: Altered mental status/memory loss; Additional info: Altered mental status since yesterday TECHNIQUE: Imaging protocol: Computed tomography of the head without contrast. Radiation optimization: All CT scans at [facility] use at least one of these dose optimization techniques: automated exposure control; mA and/or kV adjustment per patient size (includes targeted exams where dose is matched to clinical indication); or iterative reconstruction. COMPARISON: No relevant prior studies available. FINDINGS: Brain: There is a moderately heavy burden of hypodense lesions in the bilateral frontal parietal white matter and right basal ganglia. There is mild generalized brain parenchymal volume loss. There is no large arterial vessel territory acute cerebral cortical edema. There is no acute intracranial hemorrhage. There is no masseffect, midline shift or herniation detected. Cerebral ventricles: No ventriculomegaly. Paranasal sinuses: Visualized sinuses are unremarkable. No fluid levels. Mastoid air cells: Visualized mastoid air cells are well aerated. Vasculature: There are moderate intracranial atherosclerotic vascular calcifications. Bones/joints: Unremarkable. No acute fracture. Soft tissues: Unremarkable. Other findings: The evaluation is mildly limited due to patient motion. IMPRESSION: 1. There is a moderately heavy burden of hypodense lesions in the bilateral frontal parietal white matter and right basal ganglia. These are probably secondary to chronic small vessel ischemic disease, however they areage indeterminate without a comparison study and I cannot exclude an acute or subacute lacunar infarction. If there is clinical suspicion of acute ischemia, further evaluation with MRI could be considered. 2. There is no mass effect, midline shift, acute intracranial hemorrhage, or large arterial vessel territory acute cerebral cortical edema detected. 3. The evaluation is mildly limited due to patient motion. PAGE 1 Signed Report (CONTINUED) Name: KAYLYNN MENG [facility] : 11/26/1936 Age/S: 84 / M [address] [place] [address] Unit #: [id number] Loc: [place] [address] Phys: Nettie Mckeon Acct: [id number] Dis Date: Status: REG ER PHONE #: [phone] Exam Date: 04/12/20212038 FAX #: [phone] Reason: Altered Mental Status SINCE YESTERDAY EX AMS: CPT CODE: [id number] CT HEAD/BRAIN W/O CONT 30655 <Continued> at 2111 Reported and signed by: Jb Sorto D.O. CC: Mamadou Leigh MD; Nettie Mckeon Technologist:RT Connor(R)(CT) CTDI: DLP: Trnscb Date/Time: 04/12/2021 (2111) [email or web address] Orig Print D/T: S: 04/12/2021 (2111) PAGE 2 Signed Report- XR CHEST 1 [id number] 00:00:00 [facility] 11/26/1936 Sex: M FAX: Mamadou Quevedo [phone] [place]: St: REG FAX: Nettie Mckeon [phone] Name: KAYLYNN MENG [facility] : 11/26/1936 Age/S: 84/M [address] [place] [address] Unit #: [id number] Loc: [place] [address] Phys: Nettie Mckeon Acct: [id number] Dis Date: Status: REG ER PHONE #: [phone] Exam Date: 04/12/20211807 FAX #: [phone] Reason: Altered Mental Status EXAMS: CPT CODE: [id number] XR CHEST 1 V 42113 PROCEDURE INFORMATION: Exam: XR Chest Exam date and time: 04/12/2021 6:00 PM Age: 84 years old Clinical indication: Other: AMS; Additional info: Altered mental status TECHNIQUE: Imaging protocol: XR of the chest. Views: 1 view. COMPARISON: No relevant prior available for comparison. FINDINGS: Lungs: No lobar consolidation. Pleural spaces: No pleural effusion. No pneumothorax. Heart/Mediastinum: Cardiac silhouette is normal. Bones/joints: No acute osseous abnormality. Degenerative changes are present at the shoulders. IMPRESSION: No acute cardiopulmonary findings. at 1817 Reported and signed by: Yoon Wilkins M.D. CC: Mamadou Leigh MD; Nettie Mckeon Technologist: RT Yvonne(Aleida) Trnscrd Date/Time/By: 04/12/2021 (1816) : By: [email or web address] Orig Print D/T: S: 04/12/2021 (1816) PAGE 1 Signed Report
[2021-06-20] MEDS ORDERED: NA CHLORIDE 0.9% 1,000 ML ONE (12:08)
[2021-06-20] MEDS ORDERED: DOPAMINE/D5W 400 MG/250 ML BAG IV ONE (12:09)
[2021-06-20 12:17] LABS: Absolute Lymphocytes (CBC) 2.2 K/uL (0.7-4.9); Lymphocytes % 30.8 % (15.3-44.8); RBC Red Blood Cell Count 4.46 M/uL (4.33-5.43)
[2021-06-20 12:58] LABS: Potassium 4.3 mmol/L (3.5-5.1); Troponin High Sensitivity 12.3 pg/mL (<58.9)
--- NOTE | 2021-06-20 14:05 | RAD REPORT ---
EXAM DESCRIPTION: RAD - Chest Single View - 06/20/2021 1:26 pm CLINICAL HISTORY: weak, hypotyension Chest pain. COMPARISON: Chest Pa And Lat (2 Views) dated 04/08/2021; Chest Single View dated 09/14/2018; Chest Pa A nd Lat (2 Views) dated 08/06/2018; CHEST PA AND LAT 2 VIEW dated 09/24/2014 FINDINGS: Portable technique limits examination quality. The lungs are emphysematous but grossly clear. The heart is mildly enlarged in size. No displaced fra ctures. IMPRESSION: Mild diffuse COPD is present.
--- NOTE | 2021-06-20 17:05 | ER ---
Nurse's Notes [facility] Name: Wale Mistry Age: 85 yrs Sex: Male : 1935 Arrival Date: 06/20/2021 Time: 11:56 Bed 6 Private MD: Diagnosis: Weakness;Hypotension, unspecified;Bradycardia, unspecified Presentation: 06/20 11:56 Chief complaint: EMS states: Sudden onset of dizziness while patient was sitting down, aa5 also cool and clammy. EMS reports pt was diaphoretic upon their arrival with his systolic BP was 60. 700 cc NS bolus was given by EMS, 18 G L AC. 11:56 Onset of symptoms was June 20, 2021. aa5 11:56 Acuity: VINOD 2 aa5 11:56 Method Of Arrival: EMS: [facility] aa5 11:56 Risk Assessment: Do you want to hurt yourself or someone else? Patient reports no aa5 desire to harm self or others. 11:56 Coronavirus screen: At this time, the client does not indicate any symptoms associated aa5 with coronavirus-19. Ebola Screen: No symptoms or risks identified at this time. Initial Sepsis Screen: Does the patient meet any 2 criteria? Systolic BP < 90 mmHg. Does the patient have a suspected source of infection? No. Patient's initial sepsis screen is negative. Historical: - Allergies: 12:00 No Known Allergies; aa5 - PMHx: 12:00 Atrial Fib; Hypertension; aa5 - PSHx: 12:00 heart stent; aa5 - Immunization history:: Adult Immunizations up to date. - Social history:: Smoking status: Patient/guardian denies using tobacco. Screenin:02 Abuse screen: Denies threats or abuse. Nutritional screening: No deficits noted. 6 Tuberculosis screening: No symptoms or risk factors identified. Fall Risk Fall in past 12 months (25 points). IV access (20 points). Ambulatory Aid- None/Bed Rest/Nurse Assist (0 pts). Gait- Impaired (20 pts.). Assessment: 12:01 General: Appears comfortable, unkempt, Behavior is calm, cooperative. Pain: Denies pain.[facility] 13:00 Reassessment: No changes from previously documented assessment. Patient is alert, 6 oriented x 3, equal unlabored respirations, skin warm/dry/pink. Patient denies pain at this time. Patient states feeling better. Patient states symptoms have improved. call light in reach, family at bedside. . 13:00 Pain: Denies pain. 6 14:55 Reassessment: No changes from previously documented assessment. Patient and/or family [facility] updated on plan of care and expected duration. Pain level reassessed. Patient is alert, oriented x 3, equal unlabored respirations, skin warm/dry/pink. Patient denies pain at this time. General: Appears in no apparent distress. Behavior is calm, cooperative, quiet, Smells of. Pain: Denies pain. Vital Signs: 11:56 BP 69 / 58; Pulse 48; Resp 18 S; Temp 98.3(O); Pulse Ox 96% on R/A; aa5 12:05 BP 98 / 65; aa5 12:09 BP 112 / 64; Pulse 51; Resp 18; Pain 0/10; 6 13:00 BP 104 / 88; Pulse 67; Resp 18; Pulse Ox 96% ; Pain 0/10; 6 13:00 BP 116 / 76; Pulse 58; Resp 18; Pulse Ox 97% ; Pain 0/10; 6 14:15 BP 111 / 88; Pulse 57; Resp 16; Pulse Ox 97% on R/A; edwards 15:47 BP 147 / 82; Pulse 54; Resp 18; Pulse Ox 97% on R/A; edwards 16:49 BP 134 / 101; Pulse 69; Resp 17; Pulse Ox 96% on R/A; edwards 18:00 BP 106 / 66; Pulse 76; Resp 18; Pulse Ox 98% on R/A; edwards 18:46 Weight 84.82 kg; Height 5 ft. 9 in. (175.26 cm); ss 18:46 Body Mass Index 27.61 (84.82 kg, 175.26 cm) Vitals: 12:09 Cardiac Rhythm Assessment Irregular. [facility] ED Course: 11:56 Patient arrived in ED. ss 11:56 Arm band placed on Patient placed in an exam room, on a stretcher. aa5 11:58 Tomas Rainey MD is Attending Physician. kdr 12:00 Triage completed. aa5 12:01 Katy Coronel, ISRRA[place] is Primary Nurse. jh6 12:05 EKG completed in triage. Results shown to . ld1 12:06 Inserted saline lock: 20 gauge in right forearm, using aseptic technique. mb7 12:06 EKG done, by ED staff, reviewed by Tomas Rainey MD. mb7 13:00 Placed in gown. Bed in low position. Call light in reach. Side rails up X 1. jh6 13:26 XRAY Chest (1 view) In Process Unspecified. EDMS 16:50 No provider procedures requiring assistance completed. edwards 17:05 Lily Gray MD is Hospitalizing Provider. kdr 23:24 The patient called me into the room and began to yell at me stating, " I want to leave [facility] now, you cant hold me here". I asked him what was wrong and he stated, " the bed is too small and uncomfortable and I should take a picture of this god damn mess you have here to show it to others". I attempted to explain to the patient that the bed he is referring to is a stretcher. He asked me to call his son Chacorta at [phone] because he was walking out of the hospital no matter what and then he ripped out the IV in his left AC. He allowed me to place cobain and 2x2 gauze on his left arm and then he told me if I don't take out the other IV then he would rip that IV out as well". I removed the right AC IV and placed cobain and 2x2 gauze. I called the patients son to tell him his father is leaving [place] and to come pick him up. Chacorta stated to tell the patient to stay put and that he would be on his way. I went back to tell the patient his son would be on his way and to give him the AMA form, upon entering the room the patient signed the form and then stood up taking his penis out of his pants and began to urinate on the floor and in he bedside commode. He stated, " you are a bitch for making me stay down here and not getting me a room and I am calling administration". As he urinated he stated, " this is what I think about you, the doctors here and this [facility] y'all are all bastards you fucking bitch". I brought the patient a wheelchair and placed him in the ER lobby with the wheelchair in a locked position to await his families arrival to pick him up. Sophie. MORATAYA was notified of the patients AMA departure. 23:24 IV discontinued, intact, bleeding controlled, No redness/swelling at site. Pressure st1 dressing applied. Administered Medications: 12:12 Drug: NS 0.9% 1000 ml Route: IV; Rate: 1 bolus; Site: right antecubital; jh6 16:38 Not Given (not indicatedd): Dopamine drip 5 mcg/kg/min - (DOPamine 400 mg, D5W 250 ml) jh6 IV at calculated rate continuous; Titrate to keep systolic blood pressure greater than 90mmHg Outcome: 17:05 Decision to Hospitalize by Provider. kdr 23:36 AMA AMA form signed st1 06/21 00:00 Patient left the ED. as6 Signatures: Dispatcher [employer] EDMS Tomas Rainey MD MD kdr Calderon, Audri, RN RN carmel5 Rupa Ewing RN RN Dara Soler RN RN ld1 Freeman Howard RN RN as6 Katy Coronel RN RN jh6 Jamila Borja [facility] Zeina Delgado RN RN ha Tingle, Shellie, RN RN st1 Corrections: (The following items were deleted from the chart) 06/20 12:10 11:56 BP 69 / 58; Pulse 48bpm; Resp 18bpm; Spontaneous; aa5 aa5 15:49 15:47 BP 147 / 82; Pulse 54bpm; Resp 20bpm; Pulse Ox 97% RA; Temp 98.5F; 52.16 kg; edwards Height 5 ft. 8 in.; BMI: 17.4; edwards
--- NOTE | 2021-06-20 17:05 | EDPHYS ---
Physician Documentation [facility] Name: Wale Mistry Age: 85 yrs Sex: Male : 1935 Arrival Date: 06/20/2021 Time: 11:56 Bed 6 Private MD: ED Physician Tomas Rainey HPI: 06/20 18:55 This 85 yrs old Male presents to ER via EMS with complaints of Dizziness. kdr 18:56 Sitting at home watching TV when he became very weak and dizzy and lightheaded. Does kdr not happen to him before he has not had any other focal or generalized health concern recently. Antihypertensive medications including lisinopril, metoprolol and amlodipine. At the house, his systolic pressure was noted to be 60. Since then his pressure has slowly increased and was proximately 90 on arrival in the ED. Eating in a recumbent position patient felt much better and his vital signs continue to improve during his stay in the ED. Onset: The symptoms/episode began/occurred just prior to arrival. Severity of symptoms: At their worst the symptoms were moderate incapacitating in the emergency department the symptoms have improved markedly. The patient has not experienced similar symptoms in the past. The patient has been recently seen by a physician: the patient's primary care provider, Since April, the patient has experienced a number of medical interventions including an angiogram of his coronary arteries and peripheral vessels in his legs. He subsequently had some stenting and graft placed with significant complications that have required extended admissions at [facility]. . Historical: - Allergies: 12:00 No Known Allergies; aa5 - PMHx: 12:00 Atrial Fib; Hypertension; aa5 - PSHx: 12:00 heart stent; aa5 - Immunization history:: Adult Immunizations up to date. - Social history:: Smoking status: Patient/guardian denies using tobacco. ROS: 18:56 Constitutional: Negative for fever, chills, and weight loss, Eyes: Negative for injury, kdr pain, redness, and discharge, ENT: Negative for injury, pain, and discharge, Neck: Negative for injury, pain, and swelling, Respiratory: Negative for shortness of breath, cough, wheezing, and pleuritic chest pain, Abdomen/GI: Negative for abdominal pain, nausea, vomiting, diarrhea, and constipation, Back: Negative for injury and pain, : Negative for injury, bleeding, discharge, and swelling, MS/Extremity: Negative for injury and deformity, Skin: Negative for injury, rash, and discoloration, Neuro: Negative for headache, weakness, numbness, tingling, and seizure activity. Psych: Negative for depression, anxiety, suicide ideation, homicidal ideation, and hallucinations, Allergy/Immunology: Negative for hives, rash, and allergies, Endocrine: Negative for neck swelling, polydipsia, polyuria, polyphagia, and marked weight changes, Hematologic/Lymphatic: Negative for swollen nodes, abnormal bleeding, and unusual bruising. 18:56 Cardiovascular: Positive for hypotension and altered mental status. Exam: 18:56 Constitutional: This is a well developed, well nourished patient who is awake, alert, kdr and in no acute distress. Head/Face: Normocephalic, atraumatic. Eyes: Pupils equal round and reactive to light, extra-ocular motions intact. Lids and lashes normal. Conjunctiva and sclera are non-icteric and not injected. Cornea within normal limits. Periorbital areas with no swelling, redness, or edema. Neck: Trachea midline, no thyromegaly or masses palpated, and no cervical lymphadenopathy. Supple, full range of motion without nuchal rigidity, or vertebral point tenderness. No Meningismus. Chest/axilla: Normal chest wall appearance and motion. Nontender with no deformity. No lesions are appreciated. Cardiovascular: Regular rate and rhythm with a normal S1 and S2. No gallops, murmurs, or rubs. Normal PMI, no JVD. No pulse deficits. Respiratory: Lungs have equal breath sounds bilaterally, clear to auscultation and percussion. No rales, rhonchi or wheezes noted. No increased work of breathing, no retractions or nasal flaring. Abdomen/GI: Soft, non-tender, with normal bowel sounds. No distension or tympany. No guarding or rebound. No evidence of tenderness throughout. Back: No spinal tenderness. No costovertebral tenderness. Full range of motion. Skin: Warm, dry with normal turgor. Normal color with no rashes, no lesions, and no evidence of cellulitis. MS/ Extremity: Pulses equal, no cyanosis. Neurovascular intact. Full, normal range of motion. Neuro: Awake and alert, GCS 15, oriented to person, place, time, and situation. Cranial nerves II-XII grossly intact. Motor strength 5/5 in all extremities. Sensory grossly intact. Cerebellar exam normal. Normal gait. Psych: Awake, alert, with orientation to person, place and time. Behavior, mood, and affect are within normal limits. Vital Signs: 11:56 BP 69 / 58; Pulse 48; Resp 18 S; Temp 98.3(O); Pulse Ox 96% on R/A; aa5 12:05 BP 98 / 65; aa5 12:09 BP 112 / 64; Pulse 51; Resp 18; Pain 0/10; jh6 13:00 BP 104 / 88; Pulse 67; Resp 18; Pulse Ox 96% ; Pain 0/10; jh6 13:00 BP 116 / 76; Pulse 58; Resp 18; Pulse Ox 97% ; Pain 0/10; jh6 14:15 BP 111 / 88; Pulse 57; Resp 16; Pulse Ox 97% on R/A; edwards 15:47 BP 147 / 82; Pulse 54; Resp 18; Pulse Ox 97% on R/A; edwards 16:49 BP 134 / 101; Pulse 69; Resp 17; Pulse Ox 96% on R/A; edwards 18:00 BP 106 / 66; Pulse 76; Resp 18; Pulse Ox 98% on R/A; edwards 18:46 Weight 84.82 kg; Height 5 ft. 9 in. (175.26 cm); ss 18:46 Body Mass Index 27.61 (84.82 kg, 175.26 cm) ss MDM: 17:05 Patient medically screened. kdr 19:00 Data reviewed: vital signs, nurses notes, lab test result(s), radiologic studies. kdr Counseling: I had a detailed discussion with the patient and/or guardian regarding: the historical points, exam findings, and any diagnostic results supporting the discharge/admit diagnosis, lab results, radiology results, the need for further work-up and treatment in the hospital. 06/20 11:59 Order name: Basic Metabolic Panel; Complete Time: 14:29 kdr 06/20 11:59 Order name: CBC with Diff; Complete Time: 14:29 kdr 06/20 11:59 Order name: Troponin HS; Complete Time: 14:29 kdr 06/20 17:30 Order name: Comprehensive Metabolic Panel EDSD 06/20 17:30 Order name: Comprehensive Metabolic Panel [facility] 06/20 17:30 Order name: Magnesium EDMS 06/20 17:30 Order name: Magnesium EDMS 06/20 17:30 Order name: Magnesium EDMS 06/20 17:30 Order name: Magnesium EDSD 06/20 17:30 Order name: Troponin High Sensitivity EDSD 06/20 17:30 Order name: Troponin High Sensitivity EDSD 06/20 17:30 Order name: Thyroid Stimulating Hormone EDSD 06/20 17:30 Order name: CBC with Automated Diff EDMS 06/20 17:30 Order name: CBC with Automated Diff EDMS 06/20 11:59 Order name: XRAY Chest (1 view); Complete Time: 14:29 kdr 06/20 11:59 Order name: EKG; Complete Time: 12:00 kdr 06/20 11:59 Order name: Cardiac monitoring; Complete Time: 12:07 kdr 06/20 11:59 Order name: EKG - Nurse/Tech; Complete Time: 12:07 kdr 06/20 11:59 Order name: IV Saline Lock; Complete Time: 12:07 kdr 06/20 11:59 Order name: Labs collected and sent; Complete Time: 12:12 kdr 06/20 11:59 Order name: O2 Per Protocol; Complete Time: 12:12 kdr 06/20 11:59 Order name: O2 Sat Monitoring; Complete Time: 12:12 kdr 06/20 17:30 Order name: Heart Healthy EDSD 06/20 17:30 Order name: Troponin High Sensitivity EDSD 06/20 17:34 Order name: COVID-19 SARS RT PCR (Document "Date of Onset" if Symptomatic) 06/20 17:34 Order name: SARS-COV-2 RT PCR EDSD Administered Medications: 12:12 Drug: NS 0.9% 1000 ml Route: IV; Rate: 1 bolus; Site: right antecubital; jh6 16:38 Not Given (not indicatedd): Dopamine drip 5 mcg/kg/min - (DOPamine 400 mg, D5W 250 ml) jh6 IV at calculated rate continuous; Titrate to keep systolic blood pressure greater than 90mmHg Disposition Summary: 06/20/21 17:05 Hospitalization Ordered Hospitalization Status: Observation kdr Provider: Lily Gray Condition: Fair kdr Problem: new kdr Symptoms: have improved kdr Bed/Room Type: Standard kdr Location: [facility] ER HOLD(06/20/21 23:01) cg Room Assignment: ERHOLD-(06/20/21 23:01) cg Diagnosis - Weakness kdr - Hypotension, unspecified kdr - Bradycardia, unspecified kdr Forms: - Medication Reconciliation Form kdr - SBAR form kdr Signatures: Dispatcher [employer] EDTomas Galan MD MD kdr Sasha Garcia RN RN [id number] Judie Muniz RN RN cg Hastedt, Jennifer RN RN jh6 Corrections: (The following items were deleted from the chart) 23: 17:05 Telemetry/MedSurg (Inpatient) kdr cg 23:01 17:05 kdr cg
[2021-06-20] MEDS ORDERED: ACETAMINOPHEN 500 MG TAB PO PRN (17:27)
[2021-06-20] MEDS ORDERED: ALBUTEROL 2.5 MG/3 ML NEB SOL NEB PRN (17:27)
[2021-06-20] MEDS ORDERED: ONDANSETRON 4 MG/2 ML VIAL IV PRN (17:27)
[2021-06-20] MEDS ORDERED: MORPHINE 2 MG/ML SYR IV PRN (17:27)
--- NOTE | 2021-06-20 17:27 | P.HP ---
Certification for Inpatient Patient admitted to: Observation With expected LOS: <2 Midnights Patient will require the following post-hospital care: None Practitioner: I am a practitioner with admitting privileges, knowledge of patient current condition, hospital course, and medical plan of care. Services: Services provided to patient in accordance with Admission requirements found in Title 42 Section 412.3 of the Code of Federal Regulations Patient History Date of Service: 06/20/21 Reason for admission: Dizziness History of Present Illness: 85-year-old male with past medical history of hypertension, chronic A. 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 Patient presented today because of sudden onset dizziness after drinking a glass of water obtained from his refrigerator. He states he thinks he is refrigerated water is contaminated. His dizziness was intermittent while sitting down. He was sent to the ED. Arrival in the ED was noted with systolic blood pressure in the 60s but heart rate was also in the 40s. EKG shows sinus rhythm with heart rate of 45 bpm. Patient states he was recently placed on increased metoprolol as well as other medications during his hospitalization at [facility]. He he states is scheduled to return to [place] next week for lower extremity angiogram intervention. He denies any fever, cough or shortness of breath. C hest x-ray shows COPD changes. Initial set of cardiac enzymes was negative. His blood pressure has improved to systolic in the 120s now with IV fluid. He has been admitted for symptomatic bradycardia with hypotension Allergies No Known Allergies Allergy (Unverified 09/14/18 22:30) Home Medications: Amlodipine [Norvasc*] 1 tab PO DAILY 09/15/18 Codeine/APAP [Tylenol #3*] 1 tab PO Q6H 09/15/18 Furosemide [Lasix*] 1 tab PO DAILY 09/15/18 Losartan Potassium 1 tab PO DAILY 09/15/18 Mirabegron [Myrbetriq] 1 tab PO DAILY 09/15/18 Naproxen [Naprosyn] 1 tab PO BID 09/15/18 Rivaroxaban [Xarelto] 1 tab PO BEDTIME 09/15/18 Sulfamethoxazole/Trimethoprim [Sulfamethoxazole-Tmp Ds Tablet] 1 tab PO Q12H 09/15/18 Tamsulosin HCl [Flomax] 2 tab PO BEDTIME 09/15/18 - Past Medical/Surgical History Diabetic: No -: chronic A.Fib -: hypertension -: hydrocelectomy - Social History Smoking Status: Current every day smoker Smoking therapy provided: Yes Patient receptive to therapy: No Alcohol use: No CD- Drugs: No Caffeine use: Yes Place of Residence: Home Review of Systems 10-point ROS is otherwise unremarkable Physical Examination - Physical Exam General: Alert, In no apparent distress, Oriented x3 HEENT: Atraumatic, Normocephalic, PERRLA Neck: Supple, 2+ carotid pulse no bruit, JVD not distended Respiratory: Clear to auscultation bilaterally, Normal air movement Cardiovascular: No edema, Regular rate/rhythm, Normal S1 S2 Gastrointestinal: Normal bowel sounds, Soft and benign, Non-distended Musculoskeletal: No swelling Integumentary: No rashes, No breakdown Neurological: Normal speech, Normal strength at 5/5 x4 extr, Normal tone - Studies Laboratory Data (last 24 hrs) 06/20/21 12:00: WBC 7.30, Hgb 14.0, Hct 42.0, Plt Count 170 06/20/21 12:00: Sodium 139, Potassium 4.3, BUN 20 H, Creatinine 1.11, Glucose 161 H Assessment and Plan - Plan Symptomatic hypotension Intermittent bradycardiaimproved History of hypertension History of atrial fibrillationon metoprolol Peripheral vascular disease Chronic tobacco use Plan We will admit patient to observation Continue gentle IV fluid with normal saline Blood pressure controlled now as well as improve heart rate to the 60s, place in telemetry and continue to monitor over the next 24 hours We will hold blood pressure regimenlosartan/amlodipine/metoprolol for now Review of old records show patient also had presented with intermittent dizziness during hospitalization 2 months ago and cardiac catheter shows no significant stenosis 2 serial set of cardiac enzymes although less likely acute coronary syndrome at this time Possible discharge in a.m. if stable Continue anticoagulation for DVT prophylaxis Continue PPI Nicotine patch with tobacco use Plans directivefull code - Advance Directives Does patient have a Living Will: No Does patient have a Durable POA for Healthcare: No Time Spent Managing Pts Care (In Minutes): 65
[2021-06-20 18:53] VITALS: O2SAT 100
[2021-06-20 18:57] VITALS: BMI 26.2
[2021-06-20 21:46] LABS: Magnesium 1.9 mg/dL (1.8-2.4); Thyroid Stimulating Hormone 1.31 uIU/mL (0.360-3.740)
[2021-06-20] MEDS ORDERED: LORazepam 2 MG/ML VIAL IV PRN (22:35)
[2021-06-21 01:17] VITALS: TEMP 98.3
[2021-06-21 01:28] VITALS: BP 106/66
--- NOTE | 2021-06-21 08:45 | EKG ---
Test Date: 2021-06-20 Test Time: 11:52:09 Office Machine Inspector: LI MEASUREMENT RESULTS: Intervals: Rate: 46 ME: QRSD: 98 QT: 500 QTc: 437 [place]: P: ME: QRS: -69 T: 257 INTERPRETIVE STATEMENTS: Undetermined rhythm Left axis deviation Low voltage QRS Inferior-posterior infarct, age undetermined ST & T wave abnormality, consider lateral ischemia Abnormal ECG Compared to ECG 04/08/2021 10:08:13 Low QRS voltage now present Myocardial infarct finding now present ST (T wave) deviation now present Possible ischemia now present Atrial fibrillation no longer present Ventricular premature complex(es) no longer present Right bundle-branch block no longer present Electronically Signed On 06-21-21 08:42:27 CDT by Pollo Gomez
[2021-06-21] MEDS ORDERED: RIVAROXABAN 15 MG TABLET PO SCH (17:00)
== END 2021-06-21 | disposition left against medical advice (07) ==
LOC: ER 11:53 → ERHOLD 18:02
PROVIDERS: ADMIT Internal Medicine; ATTEND Hospitalist
DX: I95.9 Hypotension, unspecified (principal); R00.1 Bradycardia, unspecified; Z53.29 Procedure and treatment not carried out because of patient's decision for other reasons; I10 Essential (primary) hypertension; I48.20 Chronic atrial fibrillation, unspecified; R53.1 Weakness; I73.9 Peripheral vascular disease, unspecified; I25.41 Coronary artery aneurysm; F17.210 Nicotine dependence, cigarettes, uncomplicated; Z71.6 Tobacco abuse counseling; Z98.890 Other specified postprocedural states; Z79.01 Long term (current) use of anticoagulants; Z79.899 Other long term (current) drug therapy; Z95.5 Presence of coronary angioplasty implant and graft; Z20.822 Contact with and (suspected) exposure to COVID-19
CPT/HCPCS: 93005; 85025; 80048; 36415; 83735; 84443; 84484 ×2; 71045; 94760; 99284; U0003; J1265; J7030; G0378 ×2

== ENCOUNTER 2021-07-01 16:50 | Emergency (ER) | payer OTHER ==
--- OUTSIDE RECORDS SUMMARY | 2021-07-01 16:57 | XMS REPORT | Continuity of Care Document ---
:1935 Author Organization [facility] t Address [address] [place] [address] Care Team Providers Name Role Phone Tiffany Hassan Attending Clinician Unavailable Katina Martinez Attending Clinician Unavailable Carol Jimenez Attending Clinician Unavailable Aleida Leigh Admitting Clinician Unavailable Katina Martinez Admitting Clinician Unavailable Carol Jimenez Admitting Clinician Unavailable Payers Payer Name Policy Type Policy Number Effective Date Expiration Date S ource Problems This patient has no known problems. Allergies, Adverse Reactions, Alerts Allergy Allergy Status Severity Reaction(s) Onset Inactive Treating Comm ents Source Name Type Date Date Clinician Iodinate DA Active [facility] d MENTAL 3-28 Clear Contrast STATUS 00:00: [employer] 00 [facility] No Known DA Active U [facility] Allergie 1-11 Clear s 00:00: Heck 00 [facility] Medications This patient has no known medications. Procedures Procedure Date / Time Performed Performing Clinician Eligio mercer [id number] 2021-04-18 00:00:00 [facility]U [facility] [id number] 2021-04-18 00:00:00 [facility] [id number] 2021-04-18 00:00:00 [facility] [id number] 2021-04-18 00:00:00 [facility] [id number] 2021-04-18 00:00:00 [facility] [id number] 2021-04-18 00:00:00 [facility] [id number] 2021-04-18 00:00:00 [facility] [id number] 2021-04-18 00:00:00 [facility] [id number] 2021-04-18 00:00:00 [facility] [id number] 2021-04-15 00:00:00 PATMA.12 [facility] Encounters Start End Encounter Admission Attending Care Care Encounter Source Date/Time Date/Time Type Type Clinicians Facility Department ID 2021-06-27 Inpatient Sonya, [facility] DAYS [id number] [facility] 08:00:00 Abad [id number] [facility] 2021-06-29 2021-06-30 Inpatient KEYONNA Martinez, [facility] MED [id number] [facility] 05:26:00 14:51:00 Marlo [id number] [facility] 2021-06-29 2021-06-29 Outpatient KEYONNA Hassan, VONDACL [facility]L [id number] [facility] 05:25:00 05:25:00 Abad 33 [facility] 2021-04-12 2021-04-27 Inpatient EM José Jimenez [facility] MEDI.01 G101 [id number] [facility] 23:50:00 17:10:00 [id number] [facility] 2021-04-12 2021-04-27 Inpatient EM José Jimenez [facility] MEDI.01 G001 [id number] [facility] 23:50:00 17:10:00 93 [facility] Results Test Description Test Time Test Comments Results Result [facility] e Comments - XR CHEST 1 V 2021-06-29 00:00[facility] 1935 Sex: M FAX: Abad Casas [phone] [place]: St: REG FAX: Mamadou Quevedo [phone] Name: KAYLYNN MENG [facility] : 1935 Age/S: 85/M [address] [place] [address] Unit #: [id number] Loc: [place] [address] Phys: Abad Hassan MD Acct: [id number] Dis Date: Status: REG [facility] PHONE #: [phone] Exam Date: 06/29/2021 06 FAX #: [phone] Reason: PRE-OP EXAMS: CPT CODE: [id number] XR CHEST 1 V 31094 PROCEDURE INFORMATION: Exam: XR Chest Exam date and time: 06/29/2021 6:26 AM Age: 85 years old Clinical indication: Other: Pre-op TECHNIQUE: Imaging protocol: XR of the chest. Views: 1 view. COMPARISON: CR XR CHEST 1V 04/12/2021 6:00 PM FINDINGS: Lungs: Normal lung volumes. No consolidation. Pleural spaces: Unremarkable. No pleural effusion. No pneumothorax. Heart/Mediastinum: Heart size is within normal limits. Vasculature is unremarkable. Bones/joints: Degenerative change involves the thoracic spine and shoulders. IMPRESSION: No acute cardiopulmonary findings. at 0735 Reported and signed by: Yair Paez M.D. CC: Abad Hassan MD; Mamadou Leigh MD Technologist: Gia Valdez RT(R) Trnscrd Date/Time/By: 06/29/2021 (9950) : By: [email or web address].TDO Orig Print D/T: S: 06/29/2021 (8922) PAGE 1 Signed Report Novel Coronavirus 2019 Inhouse 2021-06-27 18:48:00 Test Item Value Reference Range Interpretation Comme nts Novel Coronavirus 2018 Negative Negative Posit haydee results are indicative of the Inhouse (test code = presenc e esUGCA-GnF-0 RNA, clinical COVNONPUI) correlation wit h patient historyand other diagnosti c information is necessary to de terminepatient infection status. Positiv e results do not rule outbacterial in fection or co-infection with other viru ses. Negative results do not preclude SA RS-CoV-2 infection andshould not b e used as the sole basis for patient man agementdecisions. Negative result s must be combined with otherclinical o bservations, patient history, and ep idemiologicalinformation. Detection of SA RS-CoV-2 RNA may be affected bysamp le collection methods, storage conditi ons, and/or stageof infection. Toya l RNA mutations, vaccinations, a ntiviraltherapeutics, antibiotics, ch emotherapeutic orimmunosuppres harika drugs have not been evaluated for e ffectson detection. Results are for the identification of SARS-CoV-2 RNA usingreal-time (RT) polymerase sondra n reaction (PCR) technologyfor t he qualitative detection of nucleic acid s from dfkFLSK-RdM-5 virus and diagn osis of SARS-CoV-2 virusinfection. It is an Emergency Use Authorization ( EUA) testauthorized by the U.S. FDA. BASIC METABOLIC [id number] 09:49:00 Test Item Value Reference Range Interpretation Comments SODIUM (test code = NA) 147 mEq/L 134-147 N POTASSIUM (test code = 3.9 mEq/L 3.4-5.0 N K) CHLORIDE (test code = 111 mEq/L 100-108 H CL) CARBON DIOXIDE (test 29 mEq/l 21-33 N code = CO2) ANION GAP (test code = 11 0-20 N GAP) GLUCOSE (test code = 107 mg/dL 70-110 N GLU) BLOOD UREA NITROGEN 14 mg/dL 7-18 N (test code = BUN) GLOMERULAR FILTRATION 80.2 70-80 H Units of measure = RATE (test code = GFR) ml/mi n/1.73 m2 CREATININE (test code = 0.9 mg/dL 0.6-1.3 N CREAT) CALCIUM (test code = 8.8 mg/dL 8.0-10.5 N CA) CBC W/AUTO [id number] 09:34:00 Test Item Value Reference Range Interpretation Comments WHITE BLOOD CELL (test code = 7.8 x10 3/uL 4.5-11.0 N WBC) RED BLOOD CELL (test code = 4.87 x10 6/uL 4.00-5.60 N RBC) HEMOGLOBIN (test code = HGB) 14.9 g/dL 12.5-16.9 N HEMATOCRIT (test code = HCT) 46.7 % 37.5-50.7 N MEAN CELL VOLUME (test code = 95.9 fL 81.0-99.0 N MCV) MEAN CELL HGB (test code = MCH) 30.6 pg 27.0-33.0 N MEAN CELL HGB CONCETRATION 31.9 g/dL 33.0-37.0 L (test code = MCHC) RED CELL DISTRIBUTION WIDTH CV 13.2 % 11.5-14.5 N (test code = RDW) PLATELET COUNT (test code = 146 x10 3/uL 150-400 L PLT) NEUTROPHIL % (test code = NT%) 57.7 % 56.0-77.0 N LYMPHOCYTE % (test code = LY%) 29.9 % 14.0-32.0 N NEUTROPHIL # (test code = NT#) 4.53 x10 3/uL 2.0-7.6 N LYMPHOCYTE # (test code = LY#) 2.34 x10 3/uL 1.0-3.8 N MANUAL DIFF REQUIRED (test code NO = MDIFF) RED CELL DISTRIBUTION WIDTH SD 47.5 fL 37.0-54.0 N (test code = RDW-SD) MEAN PLATELET VOLUME (test code 11.3 fL 7.0-9.0 H = MPV) IMMATURE GRANULOCYTE % (test 0.3 % 0.0-2.0 N code = IG%) MONOCYTE % (test code = MO%) 9.5 % 4.8-9.0 H EOSINOPHIL % (test code = EO%) 1.7 % 0.3-3.7 N BASOPHIL % (test code = BA%) 0.9 % 0.0-2.0 N NUCLEATED RBC % (test code = 0.0 % 0-0 N NRBC%) IMMATURE GRANULOCYTE # (test 0.02 x10 3/uL 0.00-0.03 N code = IG#) MONOCYTE # (test code = MO#) 0.74 x10 3/uL 0.1-0.8 N EOSINOPHIL # (test code = EO#) 0.13 x10 3/uL 0.0-0.2 N BASOPHIL # (test code = BA#) 0.07 x10 3/uL 0.0-0.2 N NUCLEATED RBC # (test code = 0.00 x10 3/uL 0.0-0.1 N NRBC#) CSF PROTEIN [id number] 07:22:00 Test Item Value Reference Range Interpretation Comments CSF PROTEIN 14-3-3. Likeliho od of prion (test code = disease: <0.2% SEE [id number]) SCANNED [facility]Y [facility] MEDICAL RECORDS - MRI BRAIN W/O [id number] 00:00:00 [facility] : 1935 Sex: M FAX: Ynes Baker MD [phone] [place]: St: ADM FAX: Mamadou Quiroz [phone] FAX: José Dill MD [phone] Name: KAYLYNN MENG [facility] : 1935 Age/S: 85/M [address] [place] [address] Bl Unit #: [id number] Loc: G.44[address] [place] [address] Phys: Ynes Baker MD Acct: [id number] Dis Date: Status: ADM IN PHONE #: [phone] Exam Date: 04/13/2021 1620 FAX #: [phone] Reason: CHANGE IS MENTAL STATUS Report Has Been Amended EXAMS: CPT CODE: [id number] MRI BRAIN W/O CONT 85555 Addendum - 04/26/2021 SIGNED 04/26/2021 ADDENDUM: [id number] MRI/MRIBRAINWO Addendum: To specify, questionable DWI hyperintense signal in the bilateral frontal lobes and left parietal lobe 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 Findings are most notable on DWI images 5-10 in the frontal lobes and images 7-8 in the left parietal lobe. at 1044 Reported and signed by: Saman Sultana M.D. Addendum - 04/14/2021 SIGNED 04/14/2021 ADDENDUM: [id number] MRI/MRIBRAINWO Addendum: The examination was reviewed with [...] Signed Report (CONTINUED) FAX: Ynes Baker MD [phone] [place]: St: ADM FAX: Carol Mamadou Leigh [phone] FAX: José Dill MD [phone] Name: KAYLYNN MENG [facility] : 1935 Age/S: 85/M [address] [place] [address] Unit #: [id number] Loc: G.4431 [place] [address] Phys: Ynes Baker MD Acct: [id number] Dis Date: Status: ADM IN PHONE #: [phone] Exam Date: 04/13/2021 1620 FAX #: [phone] Reason: CHANGE IS MENTAL STATUS Report Has Been Amended EXAMS: CPT CODE: [id number] MRI BRAIN W/O CONT 07920 <Continued> Imaging protocol: MR of the head [...] abnormalities of the brain are seen. at 8062 Reported and signed by: Vinay Lim M.D. PAGE 2 Signed Report (CONTINUED) FAX:Ynes Baker MD [phone] [place]: St: [facility] FAX: Mamadou Quevedo [phone] FAX: José Dill MD [phone] Name: KAYLYNN MENG [facility] : 1935 Age/S: 85/M [address] [place] [address] Unit #: [id number] Loc: G.4431 [place] [address] Phys: Ynes Baker MD Acct: [id number] Dis Date: Status: ADM IN PHONE #: [phone] Exam Date: 04/13/2021 1620 FAX#: [phone] Reason: CHANGE IS MENTAL STATUS Report Has Been Amended EXAMS: CPT CODE:[id number] MRI BRAIN W/O CONT 79070 <Continued> CC: Ynes Baker MD; Mamadou Leigh MD; José Jimenez MD Technologist: Harish Cisneros, RT(R)(CT) Trnscrd Date/Time/By: 04/13/2021 (1751) : By: [email or web address] Orig Print D/T: S: 04/13/2021 (1751) PAGE 3 Signed ReportT4 [id number] 13:10:00 Test Item Value Reference Range Interpretation Comments T4 FREE (test code = T4F) 1.0 ng/dL 0.77-1.61 N THYROID STIMULATING [id number] 13:10:00 Test Item Value Reference Range Interpretation Comments THYROID STIMULATING 2.00 0.42-5.47 N Results in HORMONE (test code = TSH) mi lli-International Units/mL VIT B1 WHOLE [id number] 13:10:00 Test Item Value Reference Range Interpretation Comments VIT B1 WHOLE BLOOD 179.7 nmol/L 66.5-200.0 Performed At: (test code = [facility]1447 TQRR9GI) [place], [place] [address]Gwm benja Conteh MD Ph:[phone] VITAMIN [id number] 13:10:00 Test Item Value Reference Range Interpretation Comments VITAMIN B12 (test code = VITB12) 336 pg/mL 193-986 N FOLIC [id number] 13:10:00 Test Item Value Reference Range Interpretation Comments FOLIC ACID (test code = FOL) 11.0 ng/mL 3.1-17.5 N METHYLMALONIC [id number] 13:12:00 Test Item Value Reference Range Interpretation Comments METHYLMALONIC ACID (test 276 nmol/L 0-378 Per formed At: code = METHM) [facility] Vbwzygrcep[address] [facility] [place] [address]Yffoaofranck Conteh MD Ph:[phone] BASIC METABOLIC [id number] 08:44:00 Test Item Value Reference Range Interpretation [...] code = 8.9 mg/dL 8.0-10.5 N CA) [id number] 08:44:00 Test Item Value Reference Range Interpretation Comments MAGNESIUM (test code = MAG) 1.80 mg/dL 1.80-2.40 N CBC W/AUTO [id number] 08:14:00 Test Item Value Reference Range Interpretation [...] (test code NO = MDIFF) CSF VDRL [id number] 17:09:00 Test Item Value Reference Range Interpretation Comments CSF VDRL QUAL Non Reactive See_Comment Performed At: [facility] (test code = Ptd[address]cm[address] [place] VDRLCSFQL) [place], [place] [address]Rxxkbi ra Wero MEJIA Ph:[phone] [Automated mess age] The system which ge nerated this result tra nsmitted reference range : Non Marlena:<1:1. The r eference range was not u sed to interpret this result as normal/abnormal . 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 THROMBOPLASTIN TIME [id number] 06:44:00 Test Item Value Reference Range Interpretation Comments THROMBOPLASTIN TIME 40.9 Seconds 25.0-39.5 H Ther apeutic PARTIAL (test code = Range: 50.4 - 88.3 PTT) Seconds Effective 07/16/2018 CBC W/AUTO [id number] 06:31:00 Test Item Value Reference Range Interpretation [...] NO = MDIFF) COVID 19 Asymptomatic IH [id number] 16:03:00 Test Item Value Reference Range Interpretation [...] high or waivedcomplexit y tests. BASIC METABOLIC [id number] 08:24:00 Test Item Value Reference Range Interpretation [...] 8.8 mg/dL 8.0-10.5 N CA) CBC W/AUTO [id number] 07:00:00 Test Item Value Reference Range Interpretation [...] code NO = MDIFF) MISCELLANEOUS LAB SEND [id number] 11:22:00 Test Item Value Reference Range Interpretation Comments MISCELLANEOUS LAB SEND NO PATHOLOGY REVIEW OUT (test code = MISCLABSO) Test: 14-3-3 proteinOrdering physician contact information: Dr. Becerra [phone] CBC W/AUTO [id number] 09:40:00 Test Item Value Reference Range Interpretation [...] (test code NO = MDIFF) BASIC METABOLIC [id number] 09:37:00 Test Item Value Reference Range Interpretation [...] 9.2 mg/dL 8.0-10.5 N CA) CSF CELL [id number] 15:26:00 Test Item Value Reference Range Interpretation [...] = 11 % 16-56 L MONOCSF) CSF [id number] 14:28:00 Test Item Value Reference Range Interpretation Comments CSF COLOR (test code = COLORLESS COLORLESS COLCSF) CSF TUBE # (test code = TUBE #2 - GLU/PROT TUBECSF) CSF GLUCOSE (test code = 60 MG/DL 40-80 N GLUCSF) CSF TOTAL PROTEIN (test 83.0 mg/dL 15-45 H code = PROTCSF) BASIC METABOLIC [id number] 11:33:00 Test Item Value Reference Range Interpretation [...] 8.8 mg/dL 8.0-10.5 N CA) CBC W/AUTO [id number] 11:24:00 Test Item Value Reference Range Interpretation [...] (test code NO = MDIFF) PATHOLOGY REVIEW [id number] 09:38:00 Test Item Value Reference Range Interpretation Comments NAME OF TEST (test TAU PROTEIN code = NAMEMISC) APPROVAL (test code NO = APPROVAL) PATH REVIEW COMMENT TEST CAN CELLED (test code = PATH AFTER [employer] REVIEW COM) WITH PRITI COOPER NP SIGNATURE (test Josue Segovia, code = SIGNATURE) Awais MISCELLANEOUS LAB SEND [id number] 09:32:00 Test Item Value Reference Range Interpretation Comments MISCELLANEOUS LAB SEND PATHOLOGY REVIEW REQ OUT (test code = MISCLABSO) Test: CSF TAU proteinOrdering physician contact information: Dr. Mariam Mcdonald [phone] MISCELLANEOUS LAB SEND [id number] 07:51:00 Test Item Value Reference Range Interpretation Comments MISCELLANEOUS LAB SEND NO PATHOLOGY REVIEW OUT (test code = MISCLABSO) Test: RT-QuICOrdering physician contact information: Dr. Mariam Mcdonald [phone]- CT HEAD/BRAIN W/O [id number] 00:00:00 [facility] 1935 Sex: M Name: KAYLYNN MENG [facility] : 1935 Age/S: 85 / M [address] [place] [address] Unit #: [id number] Loc: [place] [address] Phys: Ynes Baker MD Acct: [id number] Dis Date: Status: ADM IN PHONE #: [phone] Exam Date: 04/15/2021 1227 FAX #: [phone] Reason: FALL EXAMS: CPT CODE: [id number] CT HEAD/BRAIN W/O CONT 82776 PROCEDURE INFORMATION: Exam: CT Head Without Contrast [...] 1 Signed Report (CONTINUED) Name: KAYLYNN MENG [facility] : 1935ge/S: 85 / M [address] [place] [address] Blvd Unit #: [id number] Loc: [place] [address] Phys: Ynes Baker MD Acct: [id number] Dis Date: Status: ADM IN PHONE#: [phone] Exam Date: 04/15/2021 1227 FAX #: [phone] Reason:FALL EXAMS: CPT CODE: [id number] CT HEAD/BRAIN W/O CONT 78363 <Continued> CC: Ynes Baker MD; Mamadou Leigh MD; José Jimenez MD Technologist:RT Lidya(R)(CT) CTDI: DLP: Trnscb Date/Time: 04/15/2021 (1250) [email or web address] Orig Print D/T: S: 04/15/2021 (7228) PAGE 2 Signed Report- PUNCTURE LUMBAR [id number] 00:00:00 [facility] 1935 Sex: M FAX: Mamadou Quevedo [phone] [place]: St: ADM FAX: José Dill MD [phone] FAX: Priti Cooper [phone] Name: KAYLYNN MENG [facility] [place] : 1935 Age/S: 85/M [address] [place] [address] Unit #: [id number] Loc: [place] [address] 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 Acct: [id number] Dis Date: Status: ADM IN PHONE #: [phone] Exam Date: 04/15/2021 1400 FAX #: [phone] Reason: Rapid Progressive Dementia EXAMS: CPT CODE: [id number] [place] [address] PROCEDURE INFORMATION: Exam: IR Lumbar Spinal Puncture [...] 1 Signed Report (CONTINUED) FAX: Mamadou Quevedo [phone] [place]: St: ADM FAX: José Dill MD [phone] FAX: Priti Busby [phone] Name: KAYLYNN MENG [facility] : 1935 Age/S: 85/M [address] [place] [address] Blvd Unit #: [id number] Loc: [address] [address] Phys: 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 CC: Mamadou Leigh MD; José Jimenez MD; Priti Cooper NP Technologist: Mery Lawrence RT(R) Trnscrd Date/Time/By: 04/15/2021 (0332) : By: [email or web address] Orig Print D/T: S: 04/15/2021 (7278) PAGE 2 Signed ReportCOVID 19 Asymptomatic IH [id number] 15:33:00 Test Item Value Reference Range Interpretation [...] or waivedcomplexit y tests. MISCELLANEOUS LAB SEND [id number] 14:44:00 Test Item Value Reference Range Interpretation Comments MISCELLANEOUS LAB SEND NO PATHOLOGY REVIEW OUT (test code = MISCLABSO) Test: Enolase Neuron SpecificOrdering physician contact information: DR. Becerra [phone] PLASMA [id number] 11:02:00 Test Item Value Reference Range Interpretation Comments RAPID PLASMA REAGIN (test code = NONREACTIVE NONREACTIVE RPR) CBC W/AUTO [id number] 08:37:00 Test Item Value Reference Range Interpretation [...] (test code NO = MDIFF) BASIC METABOLIC [id number] 08:14:00 Test Item Value Reference Range Interpretation [...] 8.8 mg/dL 8.0-10.5 N CA) BASIC METABOLIC [id number] 10:33:00 Test Item Value Reference Range Interpretation [...] 9.0 mg/dL 8.0-10.5 N CA) THROMBOPLASTIN TIME [id number] 10:25:00 Test Item Value Reference Range Interpretation Comments THROMBOPLASTIN TIME 32.2 Seconds 25.0-39.5 N Ther apeutic PARTIAL (test code = Range: 50.4 - 88.3 PTT) Seconds Effective 07/16/2018 CBC W/O [id number] 10:17:00 Test Item Value Reference Range Interpretation [...] 11.1 fL 7.0-9.0 H = MPV) GLUCOSE [id number] 09:49:00 Test Item Value Reference Range Interpretation Comments GLUCOSE BEDSIDE (test 87 MG/DL 70-110 N Perfor med by certified code = GLUBED) 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 [facility] - DOP ART SGL LEVEL [id number] 00:00:00 [facility] 11/26/1936 Sex: M Name: KAYLYNN MENG [facility] : 11/26/1936 Age/S: 84 / M [address] [place] [address] Unit #: [id number] Loc: [place] [address] Phys: Abad Hassan MD Acct: [id number] Dis Date: Status: ADM IN PHONE #: [phone] Exam Date: 04/13/2021 1656 FAX #: [phone] Reason: Bilateral leg ischemia, left leg pain, fall Report Has Been Amended EXAMS: CPT CODE: [id number] DOP ART SGL LEVEL HILARIO 17188 Addendum - 04/13/2021 SIGNED 04/13/2021 ADDENDUM: [id number] /BRANDON Critical/significant findings and need for immediate communication to the requesting physician or on-call physician were discussed with the patient's charge nurse at 5:19 PM PERINATAL COORDINATOR on 04/13/2021. The findingswere acknowledged and understood. at 1719 Reported and signed by: Alexis Douglas D.O. [...] 1 Signed Report (CONTINUED) Name: KAYLYNN MENG [facility] : 11/26/1936 Age/S: 84 / M [address] [place] [address] Unit #: [id number] Loc: [place], [place] [address]Yghs: Abad Hassan MD Acct: [id number] Dis Date: Status: ADM IN PHONE #: [phone] Exam Date: 04/13/2021 1658 FAX #: [phone] Reason: Bilateral leg ischemia, left leg pain, fall Report Has Been Amended EXAMS: CPT CODE: [id number] DOP ART SGL LEVEL HILARIO 17907 <Continued> artery and dorsalis pedis artery. Right VIRGILIO measures1.1 and left VIRGILIO measures 0.7. IMPRESSION: No flow is seen in the left popliteal artery. There is monophasic flow in the left posterior tibial artery and dorsalis pedis artery. at 1716 Reported and signed by: Alexis Douglas D.O. CC: Abad Hassan MD; Mamadou Leigh MD; José Jimenez MD Technologist: Raya Aguirre; Criselda Callejas RDMS(AB) Trnscb Date/Time: 04/13/2021 (1715) [email or web address] Orig Print D/T: S: 04/13/2021 (1715) Probe: PAGE 2 Signed Report- MRA NECK W/O [id number] 00:00:00 [facility] 11/26/1936 Sex: M FAX: Mamadou Quevedo [phone] [place]: St: ADM FAX: José Dill MD [phone] FAX: Priti Cooper [phone] Name: KAYLYNN MENG [facility] : 11/26/1936 Age/S: 84/M [address] [place] [address] Unit #: [id number] Loc: [place] [address] Phys: Me caron Cooper NP Acct: [id number] Dis Date: Status: ADM IN PHONE #: [phone] Exam Date: 04/13/2021 1620 FAX #: [phone] Reason: Afib/AMS EXAMS: CPT CODE: [id number] MRA NECK W/O CONT 79607 PROCEDURE INFORMATION: Exam: MRA Neck Without Contrast [...] 1 Signed Report (CONTINUED) FAX: Mamadou Quevedo [phone] [place]: St: [facility] FAX: José Dill MD [phone] FAX: Priti Cooper [phone] Name: [facility]NN [facility]ENG [facility] : 11/26/1936 Age/S: 84/M [address] [place] [address] Unit #: [id number] Loc: [address] [address] Phys: Priti Cooper NP Acct: [id number] Dis Date: Status: ADM IN PHONE #: [phone] Exam Date: 04/13/2021 1620 FAX #: [phone] Reason: Afib/AMS EXAMS: CPT CODE: [id number] MRA NECK W/O CONT 91320 <Continued> CC: Mamadou Leigh MD; José Jimenez MD; Priti Cooper NP Technologist: RT Nelsy(R)(CT) Trnscrd Date/Time/By: 04/13/2021 (174) : By: [email or web address] Orig Print D/T: S: 04/13/2021 (1746) PAGE 2 Signed Report- MRA HEAD W/O [id number] 00:00:00 [facility] KAYLYNN MENG : 11/26/1936 Sex: M FAX: Mamadou Quevedo [phone] [place]: St: ADM FAX: José Dill MD [phone] FAX: Priti Cooper [phone] Name: KAYLYNN MENG [facility] Joshua Heck : 11/26/1936 Age/S: 84/M [address] [place] [address] Blvd Unit #: [id number] Loc: [place] [address] 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 Acct: [id number] Dis Date: Status: ADM IN PHONE #: [phone] Exam Date: 04/13/2021 1620 FAX #: [phone] Reason: Afib/AMS EXAMS: CPT CODE: [id number] MRA HEAD W/O CONTRAST [id number] PROCEDURE INFORMATION: Exam: MRA Head Without C [...] 1 Signed Report (CONTINUED) FAX: Mamadou Quevedo [phone] [place]: St: [facility] FAX: José Dlil MD [phone] FAX: Priti Cooper [phone] Name: KAYLYNN MENG [facility] : 11/26/1936 Age/S: 84/M [address] [place] [address] Unit #: [id number] L oc: [address] [place] [id number] Phys: Priti Cooper NP Acct: [id number] Dis Date: Status: ADM IN PHONE #: [phone] Exam Date: 04/13/2021 1620 FAX #: [phone] Reason: Afib/AMS EXAMS: CPT CODE: [id number] MRA HEAD W/O CONTRAST 03055 <Continued> at 1820 Reported and signedby: Baylee Iraheta M.D. 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 Acct: [id number] Dis Date: Status: ADM IN PHONE #: [phone] Exam Date: 04/13/2021 1007 FAX #: [phone] Reason: CHANGE IN MENTAL STATUS EXAMS: CPT CODE: [id number] CT HEAD/BRAIN W/O CONT 53085 PROCEDURE INFORMATION: Exam: CT Head Without Contrast [...] Technologist:RT Lidya(R)(CT) CTDI: DLP: Trnscb Date/Time: 04/13/2021 (1020) [email or web address] Orig Print D/T: S: 04/13/2021 (1020) PAGE 1 Signed Report- DUP EXTRACRANIAL HILARIO 2021-04-13 00:00[facility]00 [facility] 11/26/1936 Sex: M Name: KAYLYNN MENG [facility] : 11/26/1936 Age/S: 84 / M [address] [place] [address] Unit #: [id number] Loc: [place] [address] Phys: José Jimenez MD Acct: [id number] Dis Date: Status: ADM IN PHONE #: [phone] Exam Date: 04/13/2021 0924 FAX #: [phone] Reason: r/o carotid stenosis EXAMS: CPT CODE: [id number] DUP EXTRACRANIAL HILARIO 13946 PROCEDURE INFORMATION: Exam: US Duplex Bilateral Extracranial [...] 1 Signed Report (CONTINUED) Name: KAYLYNN MENG [facility] : 11/26/1936 Age/S: 84 / M [address] [place] [address] Blvd Unit #: [id number] Loc: [place] [address] Phys: José Jimenez MD Acct: [id number] Dis Date: Status: ADM IN PHONE #: [phone] Exam Date: 04/13/2021 09 FAX #: [phone] Reason: r/o carotid stenosis EXAMS: CPT CODE: [id number] DUP EXTRACRANIAL HILARIO 91039 <Continued> CC: Mamadou Leigh MD; Yuni Jimenez MD Technologist: Sofiya Callejas Trnscb Date/Time: 04/13/2021(49) ElinorO Orig Print D/T: S: 04/13/2021 (8943) Probe: PAGE 2 Signed Report UA RFLX MICR CULT IF [id number] 21:42:00 Test Item Value Reference Range Interpretation [...] srcSpecimen Description: CLEAN CATCHCOVID 19 Asymptomatic IH [id number] 20:36:00 Test Item Value Reference Range Interpretation Comments COVID 19 Asymptomatic Negative Negative A nega tive result is IH AG (test code = presumpti ve and should COVNONPUIAG) be confirmedwit h an FDA authorized mole cular assay, if chauncey paulino forpatient marsha gement.A positive result does not [...] high or waivedcomplexit y tests. BASIC METABOLIC [id number] 20:18:00 Test Item Value Reference Range Interpretation [...] 9.5 mg/dL 8.0-10.5 N CA) HEPATIC FUNCTION [id number] 20:18:00 Test Item Value Reference Range Interpretation [...] code = 0.70 MG/DL BILIND) TROP-I HIGH [id number] 20:18:00 Test Item Value Reference Range Interpretation [...] These resu lts were obtained using Siemens Atellica IM TnI Hreagent. Results from di fferent methodologies s hould not becompared to o ne another as quantitative results and URLs mayvary by method. PROTHROMBIN [id number] 20:13:00 Test Item Value Reference Range Interpretation [...] o prevent recurre nt infarct). THROMBOPLASTIN TIME [id number] 20:13:00 Test Item Value Reference Range Interpretation Comments THROMBOPLASTIN TIME 31.5 Seconds 25.0-39.5 N Ther apeutic PARTIAL (test code = Range: 50.4 - 88.3 PTT) Seconds Effective 07/16/2018 LACTIC [id number] 20:11:00 Test Item Value Reference Range Interpretation Comments LACTIC ACID (test code = LACT) 1.3 mmol/L 0.4-1.9 N CBC W/AUTO [id number] 19:57:00 Test Item Value Reference Range Interpretation [...] 3/uL 0.0-0.1 N NRBC#) - CT ANGIO [id number] 00:00:00 [facility] 11/26/1936 Sex: M Name: KAYLYNN MENG [facility] : 11/26/1936 Age/S: 84 / M [address] [place] [address] Bl Unit #: [id number] Loc: [place] [address] Phys: Nettie Mckeon [facility] Acct: [id number] Dis Date: Status: REG ER PHONE #: [phone] Exam Date: 04/12/20212041 FAX #: [phone] Reason: UNRESPONSIVE EPISODE YDAY S/P ANGIOGRAM EXAMS: CPT CODE: [id number] CT ANGIO CHEST [address] [place] OCEDURE INFORMATION: Exam: CTA Chest With Contrast [...] clinical indication); or iterative reconstruction. Contrast material: [id number]; Contrast volume: 100 ml; Contrast route: INTRAVENOUS [...] 1 Signed Report (CONTINUED) Name: KAYLYNN MENG [facility] [place] : 11/26/1936 Age/S: 84 / M [address] [place] [address] Unit #: [id number] Loc: [place] [address] Phys: Nettie Mckeon Acct: [id number] Dis Date: Status: REG ER PHONE #: [phone] Exam Date: 04/12/20212041 FAX #: [phone] Reason: UNRESPONSIVE EPISODE YDAY S/P ANGIOGRAM EXAMS: CPT CODE: [id number] CT ANGIO CHEST 78271 <Continued> SL:131 Electronically Signedby Awais Garay on 04/12/2021 at 6 Reported and signed by: Kaylynn Garay M.D. CC: Mamadou Leigh MD; Nettie Mckeon Technologist:RT Connor(R)(CT) CTDI:DLP: Trnscb Date/Time: 04/12/2021 (2115) Alexa Orig Print D/T: S: 04/12/2021 (2115) PAGE 2 Signed Report- CT HEAD/BRAIN W/O [id number] 00:00[facility]00 [facility] 11/26/1936 Sex: M Name: KAYLYNN MENG [facility] : 11/26/1936 Age/S: 84 / M [address] [place] [address] Unit #: [id number] Loc: [place] [address] Phys: Nettie Mckeon Acct: [id number] Dis Date: Status: REG ER PHONE #: [phone] Exam Date: 04/12/20212038 FAX #: [phone] Reason: Altered Mental Status SINCE YESTERDAY EXAMS: CPT CODE: [id number] CT HEAD/BRAIN W/O CONT 71806 PROCEDURE INFORMATION: Exam: CT Head Without Contrast Exam date and time: 04/12/2021 8:43PM Age: 84 years old Clinical indication: Altered mental status/memory loss; Additional info: Altered mental status since yesterday TECHNIQUE: Imaging protocol: Computed tomography of the head without contrast. Radiation optimization: All CT scans at this [facility] use at least one of these dose [...] 1 Signed Report (CONTINUED) Name: KAYLYNN MENG [facility] : 11/26/1936 Age/S: 84 / M [address] [place] [address] Unit #: [id number] Loc: [place] [address] Phys: Nettie Mckeon Afua [facility] Acct: [id number] Dis Date: Status: REG ER PHONE #: [phone] Exam Date: 04/12/20212038 FAX #: [phone] Reason: Altered Mental Status SINCE YESTERDAY EX AMS: CPT CODE: [id number] CT HEAD/BRAIN W/O CONT 89021 <Continued> at 2 Reported and signed by: Jb Sorto D.O. CC: Mamadou Leigh MD; Nettie Mckeon Technologist:RT Connor(R)(CT) CTDI: DLP: Trnscb Date/Time: 04/12/2021 (2111) [id number] Orig Print D/T: S: 04/12/2021 (2111) PAGE 2 Signed Report- XR CHEST 1 [id number] 00:00:00 [facility] 11/26/1936 Sex: M FAX: Mamadou Quevedo [phone] [place]: St: REG FAX: Nettie Mckeon [phone] Name: KAYLYNN MENG [facility] : 11/26/1936 Age/S: 84/M [address] [place] [address] Unit #: [id number] [place]: [place] [address] Phys: Nettie Mckeon Acct: [id number] Dis Date: Status: REG ER PHONE #: [phone] Exam Date: 04/12/2021 1808 FAX #: [phone] Reason: Altered Mental Status EXAMS: CPT CODE: [id number] XR CHEST 1 V 95894 PROCEDURE INFORMATION: Exam: XR Chest Exam date [...] shoulders. IMPRESSION: No acute cardiopulmonary findings. at 181 Reported and signed by: Yoon Wilkins M.D. CC: Mamadou Leigh MD; Nettie Mckeon Technologist: KAJAL Russell) Trnscrd Date/Time/By: 04/12/2021 (1816) : By: [email or web address] Orig Print D/T: S: 04/12/2021 (1816) PAGE 1 Signed Report
[2021-07-01] MEDS ORDERED: MORPHINE 4 MG/ML SYR ONE (17:09)
[2021-07-01] MEDS ORDERED: ONDANSETRON 4 MG/2 ML VIAL ONE (17:09)
[2021-07-01 17:33] LABS: Absolute Lymphocytes (CBC) 1.8 K/uL (0.7-4.9); Hematocrit 35.3 % (39.6-49.0); Lymphocytes % 17.2 % (15.3-44.8); RBC Red Blood Cell Count 3.81 M/uL (4.33-5.43)
[2021-07-01 17:36] LABS: Protime INR 1.72
[2021-07-01 17:53] LABS: Albumin 3.3 g/dL (3.4-5.0); Bilirubin Direct 0.2 mg/dL (0-0.2); Bilirubin Total 0.6 mg/dL (0.2-1.0); Potassium 4.1 mmol/L (3.5-5.1); Protein, Total 6.4 g/dL (6.4-8.2); Troponin High Sensitivity 13.9 pg/mL (<58.9)
[2021-07-01] MEDS ORDERED: VANCOMYCIN 1 GM in NA CHLORIDE 0.9% 250 ML IVPB ONE (18:00)
[2021-07-01] MEDS ORDERED: VANCOMYCIN 1 GM/VIAL ONE (18:37)
[2021-07-01] MEDS ORDERED: NA CHLORIDE 0.9% 250 ML ONE (18:37)
--- NOTE | 2021-07-01 18:45 | RAD REPORT ---
EXAM DESCRIPTION: CT - Head Brain Wo Cont - 07/01/2021 6:22 pm CLINICAL HISTORY: fall, head injury COMPARISON: CT head April 2008 TECHNIQUE: Axial 5 mm thick images of the head were obtained without IV contrast. All CT scans are performed using dose optimization technique as appropriate and may include automated exposure control or mA/KV adjustment according to patient size. FINDINGS: No intracranial hemorrhage, mass, edema or shift of mid-line structures. No acute cortical level infarction seen. No cortical edema or sulcal effacement. Advanced atrophy changes are present with ventricles in proportion to volume loss. Advanced chronic ischemic changes are seen throughout t he cerebral white matter, basal ganglia, thalamus and brainstem tissues. Atrophy and chronic ischemic change have shown significant progression from 2008. No abnormal extra-axial fluid collections. Arterial tree calcifications are present. Mastoid air cells and visualized portions of the paranasal sinuses are clear. No acute bony findings. IMPRESSION: Advanced atrophy and advanced chronic ischemic change, both significantly progressive fr om 2008 comparison. No acute intracranial finding.
--- NOTE | 2021-07-01 20:22 | RAD REPORT ---
EXAM DESCRIPTION: RAD - Chest Single View - 07/01/2021 6:57 pm CLINICAL HISTORY: left leg swelling COMPARISON: Portable 06/20/2021 TECHNIQUE: AP portable chest image was obtained 07/01/2021 6:57 pm . FINDINGS: Fibrotic lung pattern matches the prior study. No superimposed mass or consolidation. No a cute failure or volume overload findings. Heart and vasculature are normal. No measurable pleural eff usion and no pneumothorax. Bilateral shoulder joint degenerative changes are present likely bilateral chronic rotator cuff tear. These are stable findings. No acute aortic findings suspected. IMPRESSION: Chronic interstitial lung disease similar to comparison. No acute findings noted.
--- NOTE | 2021-07-01 20:25 | RAD REPORT ---
EXAM DESCRIPTION: RAD - Foot Left 3 View - 07/01/2021 6:57 pm CLINICAL HISTORY: fall COMPARISON: No comparisons FINDINGS: Soft tissue swelling of the first toe is evident. There is a generalized lucency of the la teral side first distal phalanx tuft relative to the other toes. Correlation is needed with any first toe soft tissue infection findings. Tuft findings are suspicious for osteomyelitis. Degenerative jose nges are present at the IP joint of the first toe with bony hypertrophy or old posttraumatic remodeli ng along the medial margin of the first distal phalanx base. The first MTP joint shows a mild degener ative pattern with minimal valgus deformity. The second-fifth toe IP joints show mild degenerative change. No acute findings of the metatarsals or midfoot. Moderately large plantar and Achilles spurs are present. No foreign body in the soft tissue s. IMPRESSION: Bone loss changes in the tuft of the first distal phalanx with first toe soft tissue swe lling. Correlation is needed with findings of soft tissue infection. Imaging findings are concerning for ost eomyelitis.
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
--- NOTE | 2021-07-01 20:29 | EDPHYS ---
Physician Documentation [facility] Name: Wale Mistry Age: 85 yrs Sex: Male : 1935 Arrival Date: 07/01/2021 Time: 16:51 Bed 3 Private MD: ED Physician Cortez Rdz HPI: 07/01 17:15 This 85 yrs old Male presents to ER via EMS with complaints of Left Lower Leg Pain. cp 17:15 The patient presents with pain, that is acute. The complaints affect the left lower leg.cp 17:15 Onset: The symptoms/episode began/occurred 2 day(s) ago. cp 17:15 Associated signs and symptoms: Pertinent positives: calf tenderness, swelling, warmth, cp Pertinent negatives fever, numbness, weakness. Family member reports patient having stent placed of left lower leg [address] Painter at [facility]. Patient reportedly taking oral Xeralto and Plavix. Historical: - Allergies: 16:54 No Known Allergies; [facility] - PMHx: 16:54 Atrial Fib; Hypertension; [facility] - PSHx: 16:54 heart stent; [facility] - Immunization history:: Client reports having NOT received the Covid vaccine. - Social history:: Smoking status: Patient reports the use of cigarette tobacco products. ROS: 17:20 Constitutional: Negative for body aches, chills, fever, poor PO intake. cp 17:20 Eyes: Negative for injury, pain, redness, and discharge. cp 17:20 Cardiovascular: Negative for chest pain. 17:20 Respiratory: Negative for cough, shortness of breath, wheezing. 17:20 Abdomen/GI: Negative for abdominal pain, nausea, vomiting, and diarrhea. 17:20 Back: Negative for pain at rest, pain with movement. 17:20 : Negative for urinary symptoms. 17:20 MS/extremity: Positive for erythema, swelling, tenderness, warmth, of the left lower leg and left foot. 17:20 Neuro: Negative for altered mental status, dizziness, headache, weakness. 17:20 All other systems are negative. Exam: 17:05 ECG was reviewed by the Attending Physician. cp 17:25 Constitutional: The patient appears in no acute distress, alert, awake, cp non-diaphoretic, non-toxic, well developed, well nourished, uncomfortable. 17:25 Head/Face: Normocephalic, atraumatic. cp 17:25 Eyes: Periorbital structures: appear normal, Conjunctiva: normal, no exudate, no injection, Sclera: no appreciated abnormality, Lids and lashes: appear normal, bilaterally. 17:25 ENT: External ear(s): are unremarkable, Nose: is normal, Mouth: Lips: moist, Oral mucosa: moist, Posterior pharynx: Airway: no evidence of obstruction, patent. 17:25 Neck: ROM/movement: is normal, is supple, without pain, no range of motions limitations. 17:25 Chest/axilla: Inspection: normal, Palpation: is normal, no crepitus, no tenderness. 17:25 Cardiovascular: Rate: tachycardic, Rhythm: irregular, JVD: is not appreciated. 17:25 Respiratory: the patient does not display signs of respiratory distress, Respirations: normal, no use of accessory muscles, no retractions, labored breathing, is not present, Breath sounds: are clear throughout, no decreased breath sounds, no stridor, no wheezing. 17:25 Abdomen/GI: Inspection: abdomen appears normal, Palpation: abdomen is soft and non-tender, in all quadrants. 17:25 Musculoskeletal/extremity: DVT Exam: swelling, that is moderate, of the left leg, tenderness, that is mild, of the left leg, erythema, that is moderate, of the left leg, increased warmth, that is mild, of the left leg, of the left foot. 17:25 Neuro: Orientation: to person, place \\T\\ time. Mentation: able to follow commands, Motor: moves all fours, strength is normal. Vital Signs: 16:52 BP 135 / 95; Pulse 116; Resp 20; Temp 97.9(O); Pulse Ox 97% ; Weight 80.74 kg; Height 5 jh6 ft. 9 in. (175.26 cm); Pain 6/10; 17:52 BP 152 / 97; Pulse 99; Resp 18; Pulse Ox 97% ; Pain 2/10; jh6 18:46 BP 147 / 101; Pulse 97; Resp 15; Pulse Ox 100% ; jl7 20:00 BP 148 / 103; Pulse 106; Resp 20 S; Pulse Ox 99% on R/A; as6 22:18 BP 132 / 78; Pulse 90; Resp 20 S; Pulse Ox 98% on R/A; as6 07/02 00:00 BP 130 / 89; Pulse 88; Resp 20 S; Pulse Ox 100% on R/A; as6 07/01 16:52 Body Mass Index 26.29 (80.74 kg, 175.26 cm) 6 MDM: 07/01 17:05 Patient medically screened. cp 17:15 Differential diagnosis: closed fracture, lower leg stent occlusion, cellulitis, cp abscess, sepsis, DVT. 23:29 Physician consultation: was contacted at 23:10, regarding regarding transfer, [facility] consult, patient's condition, Spoke with Dr. 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 Dr Painter reports these findings are not acute and that the patient did not develop a thrombus taking the Xarelto and Plavix. Surrounding redness that has developed in the left foot in the lower leg does not believe is concerning for infection and reports this is due to revascularization post stent placement. Declines any transfer at this time and states we can place patient on oral antibiotic and he will follow up with patient in the clinic. 23:30 Data reviewed: vital signs, nurses notes, lab test result(s), EKG, radiologic studies, cp plain films, ultrasound. 23:30 Test interpretation: by ED physician or midlevel provider: ECG, plain radiologic cp studies. ED course: Spoke with daughter who reports she will not return to ED tonight to pick patient up after discharge and will return tomorrow morning. 07/01 16:57 Order name: Basic Metabolic Panel; Complete Time: 18:20 cp 07/01 18:20 Interpretation: Normal except: GLUC 123; BUN 22; GFR 67; CA 8.3. cp 07/01 16:57 Order name: CBC with Diff; Complete Time: 18:20 cp 07/01 18:20 Interpretation: Normal except: RBC 3.81; HGB 12.0; HCT 35.3; PLT 147. cp 07/01 16:57 Order name: LFT's; Complete Time: 18:20 cp 07/01 19:49 Interpretation: Normal except: ALB 3.3. cp 07/01 16:57 Order name: Magnesium; Complete Time: 18:20 cp 07/01 16:57 Order name: NT PRO-BNP; Complete Time: 18:20 cp 04 19:02 Interpretation: NT PRO-BNP 1697; Reviewed. cp 04 16:57 Order name: PT-INR; Complete Time: 18:20 cp 04 20:25 Interpretation: Abnormal: INR <p>1.72</p>. cp 04/ 16:57 Order name: Troponin HS; Complete Time: 18:20 cp 07/01 16:57 Order name: XRAY Chest (1 view); Complete Time: 20:23 cp 07/01 16:57 Order name: US Extremity Venous Unilateral Ltd; Complete Time: 21:04 cp 07/01 16:57 Order name: LE Artery Uni Ltd; Complete Time: 21:04 cp 07/01 16:57 Order name: Lactate; Complete Time: 18:20 cp 07/01 16:57 Order name: Procalcitonin; Complete Time: 18:20 cp 07/01 16:57 Order name: Blood Culture Adult (2) cp 07/01 20:33 Order name: COVID-19/FLU A+B (Document "Date of Onset" if Symptomatic); Complete Time: tw5 23:07 04 16:57 Order name: EKG; Complete Time: 16:58 cp 07/01 16:57 Order name: Cardiac monitoring; Complete Time: 17:01 cp 07/01 16:57 Order name: EKG - Nurse/Tech; Complete Time: 17:01 cp 07/01 16:57 Order name: IV Saline Lock; Complete Time: 18:42 cp 07/01 16:57 Order name: Labs collected and sent; Complete Time: 18:42 cp 07/01 16:57 Order name: O2 Per Protocol; Complete Time: 17:01 cp 07/01 16:57 Order name: O2 Sat Monitoring; Complete Time: 17:01 cp 07/01 17:07 Order name: XRAY Foot LEFT 3 View; Complete Time: 20:29 cp 04 17:07 Order name: CT Head Brain wo Cont; Complete Time: 19:02 cp EC:05 Rate is 107 beats/min. Rhythm is irregular. QRS interval is prolonged at 138 msec. QT cp interval is normal. T waves are Inverted in lead aVR. Interpreted by me. Reviewed by me. Administered Medications: 18:41 Not Given (Patient Refused): morphine 4 mg IVP once; RASS on ADMIN: Combtv4, Very jl7 Agttd3, Agttd2, Rstlss1, AlertClm0, Drwsy-1, Lt Sdtn-2, Mod Sdtn-3, Dp Sdtn-4, UnArsble-5 18:41 Not Given (Patient Refused): Zofran (Ondansetron) 4 mg IVP once; over 2 minutes jl7 18:41 Drug: vancoMYCIN 1 grams Route: IVPB; Infused Over: 2 hrs; Site: right antecubital; jl7 23:46 CANCELLED (Physician Discretion): Metoprolol 5 mg IVP once; Hold for SBP <100 or HR <60.cp 23:46 CANCELLED (Physician Discretion): Metoprolol 25 mg PO once cp Disposition: 07/02 09:03 Co-signature as Attending Physician, Cortez Rdz MD. rn 09:41 I agree with the assessment and plan of care. Attestation: The patient's history, exam rn findings, diagnostics, and a summary of any interventions or procedures was reviewed in detail with Db MORATAYA. Disposition Summary: 07/01/21 23:51 Discharge Ordered Location: Home cp Problem: new(07/01/21 23:51) cp Symptoms: have improved(07/01/21 23:51) cp Condition: Stable(07/01/21 23:51) cp Diagnosis - Pain in left lower leg cp - Peripheral vascular disease, unspecified cp - Unspecified atrial fibrillation cp Followup: cp - With: Private Physician - When: 2 - 3 days - Reason: Wound Recheck Discharge Instructions: - Discharge Summary Sheet cp - Peripheral Vascular Disease cp Forms: - Medication Reconciliation Form cp - Thank You Letter cp - Antibiotic Education cp - Prescription Opioid Use cp Prescriptions: - Doxycycline Hyclate 100 mg Oral Tablet - take 1 tablet by ORAL route every 12 hours; 20 tablet; Refills: 0, Product cp Selection Permitted Signatures: Dispatcher [employer] EDCortez Tejeda MD MD rn Page, Corey, PA PA cp Leal, Jahala RN RN jl7 Katy Coronel RN RN jh6 Corrections: (The following items were deleted from the chart) 07/01 23:12 23:11 This 85 yrs old Male presents to ER via EMS with complaints of Left Lower Leg cp Pain. cp 23:46 23:40 Metoprolol 5 mg IVP once; Hold for SBP <100 or HR <60. ordered. cp cp 23:46 23:40 Metoprolol 25 mg PO once ordered. cp cp 23:50 20:28 Doctor cp cp 23:50 20:28 Other Acute Care Facility cp cp 23:50 20:28 Higher level of care cp cp 23:50 20:28 Stable cp cp 23:50 20:28 new cp cp 23:50 20:28 have improved cp cp 23:50 20:28 Cellulitis of left lower limb cp cp 23:50 20:28 Acute embolism and thrombosis of unspecified deep veins of left lower extremity [facility] 07/02 02:29 04 23:29 Physician consultation: was contacted at 23:10, regarding regarding cp transfer, [facility] [place] consult, patient's condition, Spoke with Dr. 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 Dr Painter reports these findings are not acute and that the patient develop a thrombus taking the Xarelto and Plavix. Surrounding redness that has developed in the left foot in the lower leg does not believe is concerning for infection and reports this is due to revascularization post stent placement. Declines any transfer at this time and states we can place patient on oral antibiotic and he will follow up with patient in the clinic, cp
--- NOTE | 2021-07-01 20:47 | RAD REPORT ---
EXAM DESCRIPTION: US - Lower Extremity Artery Uni Ltd - 07/01/2021 8:31 pm CLINICAL HISTORY: Pain;Swelling Open wound on the toes COMPARISON: No comparisons TECHNIQUE: Doppler evaluation of the left leg arterial tree performed. Waveforms and velocity values were obtained along with visual inspection. FINDINGS: No occlusion or focal flow restricting lesion identified. Monophasic waveform pattern was seen along the entire length of the left lower extremity. This generally indicates significant flow r estricting atherosclerotic changes in the distal aorta or left iliac vasculature.Arterial wall athero sclerotic calcifications are seen along the length of the left lower extremity. Adjacent to the posterior tibial artery in the ankle there is a 2.1 centimeter oval anechoic to hypoe choic mass. On Doppler assessment is appears to have blood flow within the lumen. 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 Left common femoral artery peak velocity value was 52 cm/second. Superficial femoral artery velocity values range from 62-105 cm/second. Popliteal velocity value was 76 cm/second. Posterior tibial arter y peak systolic velocity was recorded as 141 cm/second. Dorsalis pedis velocity was 39 cm/second. IMPRESSION: Monophasic waveform pattern in the left lower extremity indicative of significant athero sclerotic changes in the distal aorta or left-sided iliac vasculature. No occlusion or focal flow restricting lesion in the left leg arterial tree. There is significant art erial wall calcification. A 2 x 1 cm low-density mass adjacent to the posterior tibial artery appears to have internal blood fl ow and may be an aneurysm or pseudoaneurysm.
--- NOTE | 2021-07-01 20:54 | RAD REPORT ---
EXAM DESCRIPTION: US - Extremity Venous Uni Ltd - 07/01/2021 8:37 pm CLINICAL HISTORY: Pain;Swelling COMPARISON: None. TECHNIQUE: Real-time sonographic evaluation of the left lower extremity deep venous system was perfo rmed. FINDINGS: Normal compressibility, flow augmentation, phasic flow and spontaneous flow are identified in the left lower extremity common femoral, superficial femoral, and greater saphenous veins. No int raluminal filling defects seen. Left popliteal vein only partially compresses and limited color flow was seen on Doppler assessment. Left posterior tibial vein was not non compressible and no color flow could be demonstrated on Dopple r assessment. IMPRESSION: Left posterior tibial vein acute thrombus filling the lumen. Thrombus partially fills th e left popliteal vein.
[2021-07-01 22:08] LABS: SARS-COV-2 RT PCR NEGATIVE (NEGATIVE)
[2021-07-02 04:43] VITALS: TEMP 97.9
[2021-07-02 04:49] VITALS: BP 130/89; O2SAT 100
--- NOTE | 2021-07-04 11:19 | EKG ---
Test Date: 2021-07-01 Test Time: 16:59:49 Blueprint Developer: HUDSON MEASUREMENT RESULTS: Intervals: Rate: 107 CT: QRSD: 138 QT: 324 QTc: 432 Capron: P: CT: QRS: -66 T: 44 INTERPRETIVE STATEMENTS: Atrial fibrillation with rapid ventricular response Left axis deviation Right bundle branch block Abnormal ECG Compared to ECG 06/20/2021 11:52:09 Right bundle-branch block now present Myocardial infarct finding no longer present ST (T wave) deviation no longer present Possible ischemia no longer present Electronically Signed On 07-04-21 11:13:23 CDT by Pollo Gomez
== END 2021-07-02 07:45 | disposition home or self-care (01) ==
LOC: ER 16:50
DX: I73.9 Peripheral vascular disease, unspecified (principal); I48.91 Unspecified atrial fibrillation; Z20.822 Contact with and (suspected) exposure to COVID-19; Z95.818 Presence of other cardiac implants and grafts; F17.210 Nicotine dependence, cigarettes, uncomplicated; I10 Essential (primary) hypertension; Z79.01 Long term (current) use of anticoagulants
CPT/HCPCS: 93005; 87040 ×2; 85025; 80048; 36415; 83735; 85610; 80076; 83605; 84484; 84145; 83880; 0240U; 70450; 71045; 73630; 93926; 93971; 96374; 99285; J3370; J7050; J2405

== ENCOUNTER 2021-07-04 15:40 | Emergency (ER) | payer OTHER ==
--- OUTSIDE RECORDS SUMMARY | 2021-07-04 15:44 | XMS REPORT | Continuity of Care Document ---
:1935 Author Organization [facility] t Address [address] [place] [address] Care Team Providers Name Role Phone Tiffany Hassan Attending Clinician Unavailable Katina Martinez Attending Clinician Unavailable Carol Jimenez Attending Clinician Unavailable Aleida Leigh Admitting Clinician Unavailable Katina Martinez Admitting Clinician Unavailable Barbara, Carol Admitting Clinician Unavailable Payers Payer Name Policy Type Policy Number Effective Date Expiration Date S ource Problems This patient has no known problems. Allergies, Adverse Reactions, Alerts Allergy Allergy Status Severity Reaction(s) Onset Inactive Treating Comm ents Source Name Type Date Date Clinician Iodinate DA Active MO [facility] d MENTAL 3-28 Clear Contrast STATUS 00:00: [employer] 00 [facility] No Known DA Active U [facility] Allergie 1-11 Clear s 00:00: Heck 00 [facility] Medications This patient has no known medications. Procedures Procedure Date / Time Performed Performing Clinician Eligio mercer [id number] 2021-04-18 00:00:00 [facility] [id number] 2021-04-18 00:00:00 [facility] [id number] 2021-04-18 00:00:00 [facility] [id number] 2021-04-18 00:00:00 [facility]U [facility] [id number] 2021-04-18 00:00:00 [facility]U [facility] [id number] 2021-04-18 00:00:00 [facility]ZU [facility] [id number] 2021-04-18 00:00:00 [facility]U [facility] [id number] 2021-04-18 00:00:00 CHEZU [facility] [id number] 2021-04-18 00:00:00 CHEZU [facility] [id number] 2021-04-15 00:00:00 PATMA.12 [facility] Encounters Start End Encounter Admission Attending Care Care Encounter Source Date/Time Date/Time Type Type Clinicians Facility Department ID 2021-06-27 Inpatient Sonya, [facility]L DAYS [id number] [facility] 08:00:00 Abad [id number] [facility] 2021-06-29 2021-06-30 Inpatient KEYONNA Martinez, [facility]ACL [facility] [id number] [facility] 05:26:00 14:51:00 Marlo [id number] [facility] 2021-06-29 2021-06-29 Outpatient KEYONNA Hassan, VONDACL [facility] [id number] [facility] 05:25:00 05:25:00 Abad 33 [facility] 2021-04-12 2021-04-27 Inpatient EM José Jimenez [facility] MEDI.01 G101 [id number] [facility] 23:50:00 17:10:00 [id number] [facility] 2021-04-12 2021-04-27 Inpatient EM José Jimenez [facility] MEDI.01 G001 [id number] [facility] 23:50:00 17:10:00 93 [facility] Results Test Description Test Time Test Comments Results Result [facility] e Comments - XR CHEST 1 V 2021-06-29 00:00:00 [facility] : 1935 Sex: M FAX: Abad Casas [phone] [place]: St: REG FAX: Mamadou Quevedo [phone] Name: KAYLYNN MENG [facility] : 1935 Age/S: 85/M [address] [place] [address] Unit #: [id number] Loc: [place] [address] Phys: Abad Hassan MD Acct: [id number] Dis Date: Status: REG [facility] PHONE #: [phone] Exam Date: 06/29/2021631 FAX #: [phone] Reason: PRE-OP EXAMS: CPT CODE: [id number] XR CHEST 1 V 67879 PROCEDURE INFORMATION: Exam: XR Chest Exam date [...] Abad Hassan MD; Mamadou Leigh MD Technologist: RT Niranjan(R) Trnscrd Date/Time/By: 06/29/2021 (0796) : By: TkTDO Orig Print D/T: S: 06/29/2021 (4409) PAGE 1 Signed Report Novel Coronavirus 2019 Inhouse 2021-06-27 18:48:00 Test Item Value Reference Range Interpretation Comme nts Novel Coronavirus 2018 Negative Negative Posit haydee results are indicative of the Inhouse (test code = presenc e esSTTI-QgK-7 RNA, clinical COVNONPUI) correlation wit h patient [...] qualitative detection of nucleic acid s from cexADGV-DmE-6 virus and diagn osis of SARS-CoV-2 virusinfection. It is an Emergency Use Authorization ( EUA) testauthorized by the U.S. FDA. BASIC METABOLIC [id number] 09:49:00 Test Item Value Reference Range Interpretation [...] 8.8 mg/dL 8.0-10.5 N CA) CBC W/AUTO [id number] 09:34:00 Test Item Value Reference Range Interpretation [...] x10 3/uL 0.0-0.1 N NRBC#) CSF PROTEIN [id number] 07:22:00 Test Item Value Reference Range Interpretation Comments CSF PROTEIN 14-3-3. Likeliho od of prion (test code = disease: <0.2% SEE [id number]) SCANNED COPY [facility] MEDICAL RECORDS - MRI BRAIN W/O [id number] 00:00:00 [facility] : 1935 Sex: M FAX: Ynes Baker MD [phone] [place]: St: ADM FAX: Mamadou Quiroz [phone] FAX: José Dill MD [phone] Name: KAYLYNN MENG [facility] : 1935 Age/S: 85/M [address] [place] [address] Unit #: [id number] Loc: G.44[address] [place] [address] Phys: Ynes Baker MD Acct: [id number] Dis Date: Status: ADM IN PHONE #: [phone] Exam Date: 04/13/2021 1620 FAX #: [phone] Reason: CHANGE IS MENTAL STATUS Report Has Been Amended EXAMS: CPT CODE: [id number] MRI BRAIN W/O CONT 05555 Addendum - 04/26/2021 SIGNED 04/26/2021 ADDENDUM: [id number] MRI/MRIBRAINWO Addendum: To specify, questionable DWI hyperintense signal in the bilateral frontal lobes and left parietal lobe 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 Findings are most notable on DWI images 5-10 in the frontal lobes and images 7-8 in the left parietal lobe. at 1044 Reported and signed by: Saman Sultana M.D. Addendum - 04/14/2021 SIGNED 04/14/2021 ADDENDUM: [id number] MRI/MRIBRAINWO Addendum: The examination was reviewed with [...] Signed Report (CONTINUED) FAX: Ynes Baker MD [phone] [place]: St: ADM FAX: Carol Mamadou Leigh [phone] FAX: José Dill MD [phone] Name: KAYLYNN MENG [facility] : 1935 Age/S: 85/M [address] [place] [address] Bl Unit #: [id number] Loc: G.[address] [place] [address] Phys: Ynes Baker MD Acct: [id number] Dis Date: Status: ADM IN PHONE #: [phone] Exam Date: 04/13/2021 1620 FAX #: [phone] Reason: CHANGE IS MENTAL STATUS Report Has Been Amended EXAMS: CPT CODE: [id number] MRI BRAIN W/O CONT 85433 <Continued> Imaging protocol: MR of the head [...] abnormalities of the brain are seen. at 1752 Reported and signed by: Vinay Lim M.D. PAGE 2 Signed Report (CONTINUED) FAX:Ynes Baker MD [phone] [place]: St: [facility] FAX: Mamadou Quevedo [phone] FAX: José Dill MD [phone] Name: KAYLYNN MENG [facility] : 1935 Age/S: 85/M [address] [place] [address] Unit #: [id number] Loc: G.44[address] [place] [address] Phys: Ynes Baker MD Acct: [id number] Dis Date: Status: ADM IN PHONE #: [phone] Exam Date: 04/13/2021 1620 FAX#: [phone] Reason: CHANGE IS MENTAL STATUS Report Has Been Amended EXAMS: CPT CODE:[id number] MRI BRAIN W/O CONT 73015 <Continued> CC: Ynes Baker MD; Mamadou Leigh MD; José Jimenez MD Technologist: Harish Cisneros, RT(R)(CT) Trnscrd Date/Time/By: 04/13/2021 (1751) : By: [email or web address] Orig Print D/T: S: 04/13/2021 (1751) PAGE 3 Signed ReportVITAMIN [id number] 13:10:00 Test Item Value Reference Range Interpretation Comments VITAMIN B12 (test code = VITB12) 336 pg/mL 193-986 N FOLIC [id number] 13:10:00 Test Item Value Reference Range Interpretation Comments FOLIC ACID (test code = FOL) 11.0 ng/mL 3.1-17.5 N T4 [id number] 13:10:00 Test Item Value Reference Range Interpretation Comments T4 FREE (test code = T4F) 1.0 ng/dL 0.77-1.61 N THYROID STIMULATING [id number] 13:10:00 Test Item Value Reference Range Interpretation Comments THYROID STIMULATING 2.00 0.42-5.47 N Results in HORMONE (test code = TSH) mi lli-International Units/mL VIT B1 WHOLE [id number] 13:10:00 Test Item Value Reference Range Interpretation Comments VIT B1 WHOLE BLOOD 179.7 nmol/L 66.5-200.0 Performed At: (test code = [facility]1447 NNKL3DL) [place], [place] [address]Jqo benja Conteh MD Ph:[phone] METHYLMALONIC [id number] 13:12:00 Test Item Value Reference Range Interpretation Comments METHYLMALONIC ACID (test 276 nmol/L 0-378 Per formed At: code = METHM) [facility] [address] [place], [place] [address]Zoltslfranck Conteh MD Ph:[phone] BASIC METABOLIC [id number] 08:44:00 Test Item Value Reference Range Interpretation [...] code = 8.9 mg/dL 8.0-10.5 N CA) [id number] 08:44:00 Test Item Value Reference Range Interpretation Comments MAGNESIUM (test code = MAG) 1.80 mg/dL 1.80-2.40 N CBC W/AUTO [id number] 08:14:00 Test Item Value Reference Range Interpretation [...] (test code NO = MDIFF) CSF VDRL [id number] 17:09:00 Test Item Value Reference Range Interpretation Comments CSF VDRL QUAL Non Reactive See_Comment Performed At: [facility] (test code = J[address]butskcgn67[address] [place] VDRLCSFQL) [place], [place] [address]Whkohl ra Wero MEJIA Ph:[phone] [Automated mess age] The system which ge nerated this result tra nsmitted reference range : Non Becket:<1:1. The r eference range was not u sed to interpret this result as normal/abnormal . 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 THROMBOPLASTIN TIME [id number] 06:44:00 Test Item Value Reference Range Interpretation Comments THROMBOPLASTIN TIME 40.9 Seconds 25.0-39.5 H Ther apeutic PARTIAL (test code = Range: 50.4 - 88.3 PTT) Seconds Effective 07/16/2018 CBC W/AUTO [id number] 06:31:00 Test Item Value Reference Range Interpretation [...] NO = MDIFF) COVID 19 Asymptomatic IH [id number] 16:03:00 Test Item Value Reference Range Interpretation [...] high or waivedcomplexit y tests. BASIC METABOLIC [id number] 08:24:00 Test Item Value Reference Range Interpretation [...] 8.8 mg/dL 8.0-10.5 N CA) CBC W/AUTO [id number] 07:00:00 Test Item Value Reference Range Interpretation [...] code NO = MDIFF) MISCELLANEOUS LAB SEND [id number] 11:22:00 Test Item Value Reference Range Interpretation Comments MISCELLANEOUS LAB SEND NO PATHOLOGY REVIEW OUT (test code = MISCLABSO) Test: 14-3-3 proteinOrdering physician contact information: Dr. Becerra [phone] CBC W/AUTO [id number] 09:40:00 Test Item Value Reference Range Interpretation [...] (test code NO = MDIFF) BASIC METABOLIC [id number] 09:37:00 Test Item Value Reference Range Interpretation [...] 9.2 mg/dL 8.0-10.5 N CA) CSF CELL [id number] 15:26:00 Test Item Value Reference Range Interpretation [...] = 11 % 16-56 L MONOCSF) CSF [id number] 14:28:00 Test Item Value Reference Range Interpretation Comments CSF COLOR (test code = COLORLESS COLORLESS COLCSF) CSF TUBE # (test code = TUBE #2 - GLU/PROT TUBECSF) CSF GLUCOSE (test code = 60 MG/DL 40-80 N GLUCSF) CSF TOTAL PROTEIN (test 83.0 mg/dL 15-45 H code = PROTCSF) BASIC METABOLIC [id number] 11:33:00 Test Item Value Reference Range Interpretation [...] 8.8 mg/dL 8.0-10.5 N CA) CBC W/AUTO [id number] 11:24:00 Test Item Value Reference Range Interpretation [...] (test code NO = MDIFF) PATHOLOGY REVIEW [id number] 09:38:00 Test Item Value Reference Range Interpretation Comments NAME OF TEST (test TAU PROTEIN code = NAMEMISC) APPROVAL (test code NO = APPROVAL) PATH REVIEW COMMENT TEST CAN CELLED (test code = PATH AFTER [employer] REVIEW COM) WITH PRITI COOPER NP SIGNATURE (test Josue Segovia, code = SIGNATURE) Awais MISCELLANEOUS LAB SEND [id number] 09:32:00 Test Item Value Reference Range Interpretation Comments MISCELLANEOUS LAB SEND PATHOLOGY REVIEW REQ OUT (test code = MISCLABSO) Test: CSF TAU proteinOrdering physician contact information: Dr. Mariam Mcdonald [phone] MISCELLANEOUS LAB SEND [id number] 07:51:00 Test Item Value Reference Range Interpretation Comments MISCELLANEOUS LAB SEND NO PATHOLOGY REVIEW OUT (test code = MISCLABSO) Test: RT-QuICOrdering physician contact information: Dr. Mariam Mcdonald [phone]- CT HEAD/BRAIN W/O [id number] 00:00:00 [facility] : 1935 Sex: M Name: KAYLYNN MENG [facility] : 1935 Age/S: 85 / M [address] [place] [address] Unit #: [id number] Loc: [place] [id number] Phys: Ynes Baker MD Acct: [id number] Dis Date: Status: ADM IN PHONE #: [phone] Exam Date: 04/15/2021 1227 FAX #: [phone] Reason: FALL EXAMS: CPT CODE: [id number] CT HEAD/BRAIN W/O CONT 53997 PROCEDURE INFORMATION: Exam: CT Head Without Contrast [...] 1 Signed Report (CONTINUED) Name: [facility] 1935ge[facility]S: 85 / M [address] [place] [address] Blvd Unit #: [id number] Loc: [place] [address] Phys: Ynes Baker MD Acct: [id number] Dis Date: Status: ADM IN PHONE#: [phone] Exam Date: 04/15/2021 1227 FAX #: [phone] Reason:FALL EXAMS: CPT CODE: [id number] CT HEAD/BRAIN W/O CONT 58320 <Continued> CC: Ynes Baker MD; Mamadou Leigh MD; José Jimenez MD Technologist:RT Lidya(R)(CT) CTDI: DLP: Trnscb Date/Time: 04/15/2021 (1250) Junito.KWL Orig Print D/T: S: 04/15/2021 (5405) PAGE 2 Signed Report- PUNCTURE LUMBAR [id number] 00:00:00 [facility] : 1935 Sex: M FAX: Mamadou Quevedo [phone] [place]: St: ADM FAX: José Dill MD [phone] FAX: Priti Cooper [phone] Name: KAYLYNN MENG [facility] [place] : 1935 Age/S: 85/M [address] [place] [address] Unit #: [id number] Loc: [place] [address] Phys: Me caron Cooper 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 LAWYER Acct: [id number] Dis Date: Status: ADM IN PHONE #: [phone] Exam Date: 04/15/2021 1400 FAX #: [phone] Reason: Rapid Progressive Dementia EXAMS: CPT CODE: [id number] [address] PROCEDURE INFORMATION: Exam: IR Lumbar Spinal Puncture [...] 1 Signed Report (CONTINUED) FAX: Mamadou Quevedo [phone] [place]: St: ADM FAX: José Dill MD [phone] FAX: Priti Busby [phone] Name: KAYLYNN MENG [facility] : 1935 Age/S: 85/M [address] [place] [address] Blvd Unit #: [id number] Loc: [address] [address] Phys: Priti Busby ATTORNEY LAWYER Acct: [id number] Dis Date: Status: ADM IN PHONE #: [phone] Exam Date: 04/15/2021 1400 FAX #: [phone] Reason: Rapid Progressive Dementia EXAMS: CPT CODE: [id number] [place] [address] &lt ;Continued> at 1457 Reported and signed by: Alexis Douglas D.O. CC: Mamadou Leigh MD; José Jimenez MD; Priti Cooper NP Technologist: Mery Lawrence RT(R) Trnscrd Date/Time/By: 04/15/2021 (1457) : By: [email or web address] [facility] Print D/T: S: 04/15/2021 (1530) PAGE 2 Signed ReportCOVID 19 Asymptomatic IH [id number] 15:33:00 Test Item Value Reference Range Interpretation [...] or waivedcomplexit y tests. MISCELLANEOUS LAB SEND [id number] 14:44:00 Test Item Value Reference Range Interpretation Comments MISCELLANEOUS LAB SEND NO PATHOLOGY REVIEW OUT (test code = MISCLABSO) Test: Enolase Neuron SpecificOrdering physician contact information: DR. Becerra [phone] PLASMA [id number] 11:02:00 Test Item Value Reference Range Interpretation Comments RAPID PLASMA REAGIN (test code = NONREACTIVE NONREACTIVE RPR) CBC W/AUTO [id number] 08:37:00 Test Item Value Reference Range Interpretation [...] (test code NO = MDIFF) BASIC METABOLIC [id number] 08:14:00 Test Item Value Reference Range Interpretation [...] 8.8 mg/dL 8.0-10.5 N CA) BASIC METABOLIC [id number] 10:33:00 Test Item Value Reference Range Interpretation [...] 9.0 mg/dL 8.0-10.5 N CA) THROMBOPLASTIN TIME [id number] 10:25:00 Test Item Value Reference Range Interpretation Comments THROMBOPLASTIN TIME 32.2 Seconds 25.0-39.5 N Ther apeutic PARTIAL (test code = Range: 50.4 - 88.3 PTT) Seconds Effective 07/16/2018 CBC W/O [id number] 10:17:00 Test Item Value Reference Range Interpretation [...] 11.1 fL 7.0-9.0 H = MPV) GLUCOSE [id number] 09:49:00 Test Item Value Reference Range Interpretation Comments GLUCOSE BEDSIDE (test 87 MG/DL 70-110 N Perfor med by certified code = GLUBED) 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 [facility] - DOP ART SGL LEVEL [id number] 00:00:00 [facility] : 11/26/1936 Sex: M Name: KAYLYNN MENG [facility] : 11/26/1936 Age/S: 84 / M [address] [place] [address] Unit #: [id number] Loc: [place] [address] Phys: Abad Hassan MD Acct: [id number] Dis Date: Status: ADM IN PHONE #: [phone] Exam Date: 04/13/2021 1658 FAX #: [phone] Reason: Bilateral leg ischemia, left leg pain, fall Report Has Been Amended EXAMS: CPT CODE: [id number] DOP ART SGL LEVEL HILARIO 68432 Addendum - 04/13/2021 SIGNED 04/13/2021 ADDENDUM: [id number] US/DOPASGLB Critical/significant findings and need for immediate communication to the requesting physician or on-call physician were discussed with the patient's charge nurse at 5:19 PM ORGANIZATIONAL CONSULTANT on 04/13/2021. The findingswere acknowledged and understood. [...] 1 Signed Report (CONTINUED) Name: KAYLYNN MENG [facility] : 11/26/1936 Age/S: 84 / M [address] [place] [address] Unit #: [id number] Loc: [place], [place] [address]Kfzp: Abad Hassan MD Acct: [id number] Dis Date: Status: ADM IN PHONE #: [phone] Exam Date: 04/13/2021 1658 FAX #: [phone] Reason: Bilateral leg ischemia, left leg pain, fall Report Has Been Amended EXAMS: CPT CODE: [id number] DOP ART SGL LEVEL HILARIO 98073 <Continued> artery and dorsalis pedis artery. Right VIRGILIO measures1.1 and left VIRGILIO measures 0.7. IMPRESSION: No flow is seen in the left popliteal artery. There is monophasic flow in the left posterior tibial artery and dorsalis pedis artery. at 1716 Reported and signed by: Alexis Douglas D.O. CC: Abad Hassan MD; Mamadou Leigh MD; José Jimenez MD Technologist: Raay Aguirre; Criselda Callejas RDMS(AB) Trnscb Date/Time: 04/13/2021 (1715) EmmaR.[email or web address] Orig Print D/T: S: 04/13/2021 (1715) Probe: PAGE 2 Signed Report- MRA NECK W/O [id number] 00:00:00 [facility] : 11/26/1936 Sex: M FAX: Mamadou Quevedo [phone] [place]: St: [facility] FAX: José Dill MD [phone] FAX: Priti Cooper [phone] Name: KAYLYNN MENG [facility] : 11/26/1936 Age/S: 84/M [address] [place] [address] Unit #: [id number] Loc: [place] [address] Phys: Me caron Cooper NP Acct: [id number] Dis Date: Status: ADM IN PHONE #: [phone] Exam Date: 04/13/2021 1620 FAX #: [phone] Reason: Afib/AMS EXAMS: CPT CODE: [id number] MRA NECK W/O CONT 52162 PROCEDURE INFORMATION: Exam: MRA Neck Without Contrast [...] 1 Signed Report (CONTINUED) FAX: Mamadou Quevedo [phone] [place]: St: [facility] FAX: José Dill MD [phone] FAX: Priti Cooper [phone] Name: KAYLYNN MENG [facility] Jorje Heck : 11/26/1936 Age/S: 84/M [address] [place] [address] Unit #: [id number] Loc: [address] [place] [address] Phys: Priti Cooper ATTORNEY LAWYER Acct: [id number] Dis Date: Status: ADM IN PHONE #: [phone] Exam Date: 04/13/2021 1620 FAX #: [phone] Reason: Afib/AMS EXAMS: CPT CODE: [id number] MRA NECK W/O CONT 00972 <Continued> CC: Mamadou Leigh MD; José Jimenez MD; Priti Cooper NP Technologist: RT Nelsy(R)(CT) Trnscrd Date/Time/By: 04/13/2021 (174) : By: [email or web address] Orig Print D/T: S: 04/13/2021 (1743) PAGE 2 Signed Report- MRA HEAD W/O [id number] 00:00:00 [facility] : 11/26/1936 Sex: M FAX: Mamadou Quevedo [phone] [place]: St: ADM FAX: José Dill MD [phone] FAX: Priti Cooper [phone] Name: KAYLYNN MENG [facility] [place] : 11/26/1936 Age/S: 84/M [address] [place] [address] Blvd Unit #: [id number] Loc: Mary[address] [place] [address] Phys: Me caron Cooper ATTORNEY LAWYER Acct: [id number] Dis Date: Status: ADM IN PHONE #: [phone] Exam Date: 04/13/2021 1620 FAX #: [phone] Reason: Afib/AMS EXAMS: CPT CODE: [id number] MRA HEAD W/O CONTRAST 65837 PROCEDURE INFORMATION: Exam: MRA Head Without C [...] 1 Signed Report (CONTINUED) FAX: Mamadou Quevedo [phone] [place]: St: [facility] FAX: José Dill MD [phone] FAX: Priti Cooper [phone] Name: KAYLYNN MENG [facility] : 11/26/1936 Age/S: 84/M [address] [place] [address] Unit #: [id number] L oc: [address] [place] [address] Phys: Priti Cooper ATTORNEY LAWYER Acct: [id number] Dis Date: Status: ADM IN PHONE #: [phone] Exam Date: 04/13/2021 1620 FAX #: [phone] Reason: Afib/AMS EXAMS: CPT CODE: [id number] MRA HEAD W/O CONTRAST 38376 <Continued> at 1820 Reported and signedby: Baylee Iraheta M.D. CC: Mamadou Leigh MD; José Foley MD; rPiti Cooper NP Technologist: RT Nelsy(Aleida)(CT) Trnscrd Date/Time/By: 2 (1819) : By: Billy Garcia Print D/T: S: 04/13/2021 (1819) PAGE 2 Signed Report- CT HEAD/BRAIN W/O [id number] 00:00:00 [facility] : 11/26/1936 Sex: M Name: KAYLYNN MENG [facility] : 11/26/1936 Age/S: 84 / M [address] [place] [address] Blvd Unit #: [id number] Loc: [place] [address] Phys: Priti Cooper ATTORNEY LAWYER Acct: [id number] Dis Date: Status: ADM IN PHONE #: [phone] Exam Date: 04/13/2021 1007 FAX #: [phone] Reason: CHANGE IN MENTAL STATUS EXAMS: CPT CODE: [id number] CT HEAD/BRAIN W/O CONT 92393 PROCEDURE INFORMATION: Exam: CT Head Without Contrast [...] MD; José Jimenez MD; Priti Cooper NP Technologist:Car Sanders, RT(R)(CT) CTDI: DLP: Trnscb Date/Time: 04/13/2021 (1020) [email or web address] Orig Print D/T: S: 04/13/2021 (1020) PAGE 1 Signed Report- DUP EXTRACRANIAL HILARIO 2021-04-13 00:00:00 [facility] : 11/26/1936 Sex: M Name: KAYLYNN MENG [facility] : 11/26/1936 Age/S: 84 / M [address] [place] [address] Unit #: [id number] Loc: [place] [address] Phys: José Jimenez MD Acct: [id number] Dis Date: Status: ADM IN PHONE #: [phone] Exam Date: 04/13/2021 09 FAX #: [phone] Reason: r/o carotid stenosis EXAMS: CPT CODE: [id number] DUP EXTRACRANIAL HILARIO 59890 PROCEDURE INFORMATION: Exam: US Duplex Bilateral Extracranial [...] occlusion is no detectable patent lumen. at 0986 Reported and signed by: Yair Paez M.D. PAGE 1 Signed Report (CONTINUED) Name: KAYLYNN MENG [facility] : 11/26/1936 Age/S: 84 / M [address] [place] [address] Bl Unit #: [id number] Loc: [place] [address] Phys: José Jimenez MD Acct: [id number] Dis Date: Status: ADM IN PHONE #: [phone] Exam Date: 04/13/2021 09 FAX #: [phone] Reason: r/o carotid stenosis EXAMS: CPT CODE: [id number] DUP EXTRACRANIAL HILARIO [id number] <Continued> CC: Mamadou Leigh MD; Yuni Jimenez MD Technologist: Sofiya Callejas Trnsdb Date/Time: 04/13/2021(0949) ElinorO Orig Print D/T: S: 04/13/2021 (0950) Probe: PAGE 2 Signed Report UA RFLX MICR CULT IF [id number] 21:42:00 Test Item Value Reference Range Interpretation [...] srcSpecimen Description: CLEAN CATCHCOVID 19 Asymptomatic IH [id number] 20:36:00 Test Item Value Reference Range Interpretation [...] high or waivedcomplexit y tests. BASIC METABOLIC [id number] 20:18:00 Test Item Value Reference Range Interpretation [...] 9.5 mg/dL 8.0-10.5 N CA) HEPATIC FUNCTION [id number] 20:18:00 Test Item Value Reference Range Interpretation [...] code = 0.70 MG/DL BILIND) TROP-I HIGH [id number] 20:18:00 Test Item Value Reference Range Interpretation [...] results and URLs mayvary by method. PROTHROMBIN [id number] 20:13:00 Test Item Value Reference Range Interpretation [...] o prevent recurre nt infarct). THROMBOPLASTIN TIME [id number] 20:13:00 Test Item Value Reference Range Interpretation Comments THROMBOPLASTIN TIME 31.5 Seconds 25.0-39.5 N Ther apeutic PARTIAL (test code = Range: 50.4 - 88.3 PTT) Seconds Effective 07/16/2018 LACTIC [id number] 20:11:00 Test Item Value Reference Range Interpretation Comments LACTIC ACID (test code = LACT) 1.3 mmol/L 0.4-1.9 N CBC W/AUTO [id number] 19:57:00 Test Item Value Reference Range Interpretation [...] 3/uL 0.0-0.1 N NRBC#) - CT ANGIO [id number] 00:00:00 [facility] : 11/26/1936 Sex: M Name: KAYLYNN MENG [facility] : 11/26/1936 Age/S: 84 / M [address] [place] [address] Bl Unit #: [id number] Loc: [place] [address] Phys: Nettie Mckeon JULNN Acct: [id number] Dis Date: Status: REG ER PHONE #: [phone] Exam Date: 04/12/20212041 FAX #: [phone] Reason: UNRESPONSIVE EPISODE YDAY S/P ANGIOGRAM EXAMS: CPT CODE: [id number] CT ANGIO CHEST [address] [place] OCEDURE INFORMATION: Exam: CTA Chest With Contrast [...] clinical indication); or iterative reconstruction. Contrast material: SSI808; Contrast volume: 100 ml; Contrast route: INTRAVENOUS [...] KAYLYNN MENG [facility] [place] : 11/26/1936 Age/S: 84 / M [address] [place] [address] Unit #: [id number] Loc: [place] [address] Phys: Nettie Mckeon Phan JULNN Acct: [id number] Dis Date: Status: REG ER PHONE #: [phone] Exam Date: 04/12/20212041 FAX #: [phone] Reason: UNRESPONSIVE EPISODE YDAY S/P ANGIOGRAM EXAMS: CPT CODE: [id number] CT ANGIO CHEST [address]183 <Continued> SL:131 Electronically Signedby Awais Garay on 04/12/2021 at 2115 Reported and signed by: Kaylynn Garay M.D. CC: Mamadou Leigh MD; Nettie Mckeon Technologist:RT Connor(R)(CT) CTDI:DLP: Trnscb Date/Time: 04/12/2021 (2115) Alexa Orig Print D/T: S: 04/12/2021 (2115) PAGE 2 Signed Report- CT HEAD/BRAIN W/O [id number] 00:00:00 [facility] : 11/26/1936 Sex: M Name: KAYLYNN MENG [facility] : 11/26/1936 Age/S: 84 / M [address] [place] [address] Unit #: [id number] Loc: [place] [address] Phys: Nettie Mckeon Acct: [id number] Dis Date: Status: REG ER PHONE #: [phone] Exam Date: 04/12/20212038 FAX #: [phone] Reason: Altered Mental Status SINCE YESTERDAY EXAMS: CPT CODE: [id number] CT HEAD/BRAIN W/O CONT 63769 PROCEDURE INFORMATION: Exam: CT Head Without Contrast Exam date and time: 04/12/2021 8:43PM Age: 84 years old Clinical indication: Altered mental status/memory loss; Additional info: Altered mental status since yesterday TECHNIQUE: Imaging protocol: Computed tomography of the head without contrast. Radiation optimization: All CT scans at this [facility] use at least one of these dose [...] 1 Signed Report (CONTINUED) Name: KAYLYNN MENG [facility] : 11/26/1936 Age/S: 84 / M [address] [place] [address] Unit #: [id number] Loc: [place] [address] Phys: Nettie Mckeon Phan BANNER Acct: [id number] Dis Date: Status: REG ER PHONE #: [phone] Exam Date: 04/12/20212038 FAX #: [phone] Reason: Altered Mental Status SINCE YESTERDAY EX AMS: CPT CODE: [id number] CT HEAD/BRAIN W/O CONT 01210 <Continued> at 2112 Reported and signed by: Jb Sorto D.O. CC: Mamadou Leigh MD; Nettie Mckeon Technologist:RT oCnnor(R)(CT) CTDI: DLP: Trnscb Date/Time: 04/12/2021 (2111) [email or web address] Orig Print D/T: S: 04/12/2021 (2111) PAGE 2 Signed Report- XR CHEST 1 [id number] 00:00:00 [facility] : 11/26/1936 Sex: M FAX: Mamadou Quevedo [phone] [place]: St: REG FAX: Nettie Mckeon [phone] Name: KAYLYNN MENG [facility] : 11/26/1936 Age/S: 84/M [address] [place] [address] Unit #: [id number] Loc: [place] [address] Phys: Nettie Mckeon Acct: [id number] Dis Date: Status: REG ER PHONE #: [phone] Exam Date: 04/12/2021 180 FAX #: [phone] Reason: Altered Mental Status EXAMS: CPT CODE: [id number] XR CHEST 1 V 38506 PROCEDURE INFORMATION: Exam: XR Chest Exam date [...]
[2021-07-04] MEDS ORDERED: FENTANYL CITR 100 MCG/2 ML ONE (16:42)
[2021-07-04] MEDS ORDERED: ONDANSETRON 4 MG/2 ML VIAL ONE (16:42)
--- NOTE | 2021-07-04 16:52 | ER ---
Nurse's Notes [facility] Name: Wale Mistry Age: 85 yrs Sex: Male : 1935 Arrival Date: 07/04/2021 Time: 15:48 Bed 30 Private MD: Diagnosis: Pain in left lower leg Presentation: 07/04 16:03 Chief complaint: EMS states: had a stent placed in left left a month or two ago, is iw complaining of pain today, was seen here recently and was due to follow up with his surgeon. Coronavirus screen: At this time, the client does not indicate any symptoms associated with coronavirus-19. Ebola Screen: Patient negative for fever greater than or equal to 101.5 degrees Fahrenheit, and additional compatible Ebola Virus Disease symptoms Patient denies exposure to infectious person. Patient denies travel to an Ebola-affected area in the 21 days before illness onset. No symptoms or risks identified at this time. Initial Sepsis Screen: Does the patient meet any 2 criteria? No. Patient's initial sepsis screen is negative. Does the patient have a suspected source of infection? No. Patient's initial sepsis screen is negative. Risk Assessment: Do you want to hurt yourself or someone else? Patient reports no desire to harm self or others. Onset of symptoms was July 04, 2021. 16:03 Method Of Arrival: EMS: [facility] iw 16:03 Acuity: VINOD 3 iw Triage Assessment: 17:10 General: Appears in no apparent distress. Behavior is cooperative. Pain: Complains of iw pain in right leg and left leg. Historical: - Allergies: 16:43 No Known Allergies; iw - PMHx: 16:05 Atrial Fib; Hypertension; iw - PSHx: 16:05 heart stent; iw Screenin:10 Abuse screen: Denies threats or abuse. Denies injuries from another. Nutritional iw screening: No deficits noted. Tuberculosis screening: No symptoms or risk factors identified. Fall Risk None identified. Assessment: 17:10 Reassessment: Patient appears in no apparent distress at this time. Patient and/or iw family updated on plan of care and expected duration. Pain level reassessed. Patient is alert, oriented x 3, equal unlabored respirations, skin warm/dry/pink. Vital Signs: 16:43 BP 114 / 64; Pulse 74; Resp 16; Temp 98.0; Pulse Ox 96% on R/A; iw 17:41 BP 121 / 69; Pulse 77; Resp 17; Pulse Ox 97% on R/A; ab2 ED Course: 15:48 Patient arrived in ED. iw 16:02 Madina Plunkett RN is Primary Nurse. iw 16:02 Car Shin NP is PHCP. pm1 16:02 Cortez Rdz MD is Attending Physician. pm1 16:04 Triage completed. iw 16:04 Arm band placed on. iw 17:41 No provider procedures requiring assistance completed. IV discontinued, intact, ab2 bleeding controlled, No redness/swelling at site. Pressure dressing applied. Administered Medications: 16:43 Drug: fentaNYL (PF) 25 mcg Route: IVP; Site: left antecubital; iw 17:29 Follow up: Response: No adverse reaction ab2 16:43 Drug: Zofran (Ondansetron) 4 mg Route: IVP; Site: left antecubital; iw 17:29 Follow up: Response: No adverse reaction ab2 Outcome: 16:51 Discharge ordered by . pm1 17:41 Discharged to home via wheelchair, with family. ab2 17:41 Condition: good 17:41 Discharge instructions given to patient, family, Instructed on discharge instructions, follow up and referral plans. medication usage, Demonstrated understanding of instructions, follow-up care, medications, Prescriptions given X 1. 17:42 Patient left the ED. 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
--- NOTE | 2021-07-04 16:52 | EDPHYS ---
Physician Documentation [facility] Name: Wale Mistry Age: 85 yrs Sex: Male : 1935 Arrival Date: 07/04/2021 Time: 15:48 Bed 30 Private MD: ED Physician Cortez Rdz HPI: 07/04 16:25 This 85 yrs old Male presents to ER via EMS with complaints of Leg Pain. pm1 16:25 The patient presents with pain. The complaints affect the left lower leg. Context: pm1 resulted from DVT. 16:25 Onset: The symptoms/episode began/occurred 5 day(s) ago. Modifying factors: The pm1 symptoms are alleviated by Tramadol but the patient reports not receiving it today positioning. the symptoms are aggravated by palpation. Associated signs and symptoms: Pertinent negatives fever, numbness, tingling. Severity of symptoms: in the emergency department the symptoms have improved. The patient has been recently seen at the [facility] Emergency Department, for similar complaints labs were performed, X-rays were performed, an ultrasound was performed, was given a prescription for antibiotics, two days ago for the same complaint. Historical: - Allergies: 16:43 No Known Allergies; iw - PMHx: 16:05 Atrial Fib; Hypertension; iw - PSHx: 16:05 heart stent; iw ROS: 16:25 Constitutional: Negative for fever, chills, and weight loss, Respiratory: Negative for pm1 shortness of breath, cough, wheezing, and pleuritic chest pain. 16:25 Neuro: Negative for headache, weakness, numbness, tingling, and seizure. 16:25 Cardiovascular: Negative for chest pain, palpitations. 16:25 Respiratory: Negative for cough, shortness of breath. 16:25 Abdomen/GI: Negative for abdominal pain, nausea, vomiting, and diarrhea. 16:25 MS/extremity: Positive for pain, swelling, tenderness, Negative for injury or acute deformity, erythema. 16:25 All other systems are negative. Exam: 16:25 Head/Face: Normocephalic, atraumatic. pm1 16:25 Skin: Warm, dry with normal turgor. Normal color with no rashes, no lesions, and no evidence of cellulitis. 16:25 Constitutional: The patient appears in no acute distress, alert, awake, non-diaphoretic, non-toxic, well developed, well hydrated, well groomed, well nourished, uncomfortable. 16:25 Eyes: Exam is negative for acute changes, Periorbital structures: appear normal, Extraocular movements: intact throughout, Conjunctiva: no acute changes, no injection. 16:25 ENT: Exam is negative for acute changes, Mouth: no acute changes, Lips: normal, moist, Oral mucosa: normal, pink and intact, moist. 16:25 Neck: Exam negative for acute changes, ROM/movement: is normal, is supple. 16:25 Cardiovascular: Rate: normal, Rhythm: regular, Pulses: no pulse deficits are appreciated. 16:25 Respiratory: Exam negative for acute changes, respiratory distress, shortness of breath. 16:25 Abdomen/GI: Exam negative for acute changes, Inspection: abdomen appears normal, Palpation: abdomen is soft and non-tender, in all quadrants. 16:25 Musculoskeletal/extremity: DVT Exam: no erythema, no increased warmth, pain, swelling, that is moderate, of the left leg, tenderness. 16:25 Neuro: Exam negative for acute changes, Orientation: is normal, Mentation: is normal, Motor: is normal, moves all fours. Vital Signs: 16:43 BP 114 / 64; Pulse 74; Resp 16; Temp 98.0; Pulse Ox 96% on R/A; iw 17:41 BP 121 / 69; Pulse 77; Resp 17; Pulse Ox 97% on R/A; ab2 MDM: 16:02 Patient medically screened. pm1 16:25 ED course: Evaluated left leg with ER provider, Db Reyes, who saw the patient two pm1 days ago for the same issue. A cardiac work up was performed along with venous and arterial ultrasounds. His vascular surgeon, Dr. Painter was consulted on that day and he was not worried about the presentation and work up. He said no transfer was required because his impression is revascularization post stenting. Patient is currently on Xarelto. Left dorsalis pedis pulse auscultated with Doppler. Db discussed with the patient's son the improvement in presentation and likely this is more of a pain management issue. Per patient, he was not given his pain medication today. Patient's son reports the patient has an appointment with Dr. Painter tomorrow morning. 16:50 Data reviewed: vital signs. Data interpreted: Pulse oximetry: on room air is 96 %. pm1 Interpretation: normal. Counseling: I had a detailed discussion with the patient and/or guardian regarding: the historical points, exam findings, and any diagnostic results supporting the discharge/admit diagnosis, the need for outpatient follow up, Vascular Surgeon, Dr. Painter, tomorrow as scheduled, to return to the emergency department if symptoms worsen or persist or if there are any questions or concerns that arise at home. 16:55 ED course: [place] reviewed. Will prescribe patient Tramadol for pain. pm1 Administered Medications: 16:43 Drug: fentaNYL (PF) 25 mcg Route: IVP; Site: left antecubital; iw 17:29 Follow up: Response: No adverse reaction ab2 16:43 Drug: Zofran (Ondansetron) 4 mg Route: IVP; Site: left antecubital; iw 17:29 Follow up: Response: No adverse reaction ab2 Disposition Summary: 07/04/21 16:51 Discharge Ordered Location: Home pm1 Problem: new pm1 Symptoms: have improved pm1 Condition: Stable pm1 Diagnosis - Pain in left lower leg pm1 Followup: pm1 - With: Emergency Department - When: As needed - Reason: Worsening of condition Followup: pm1 - With: Private Physician - When: Tomorrow - Reason: Discharge Instructions: - Discharge Summary Sheet pm1 Forms: - Medication Reconciliation Form pm1 - Thank You Letter pm1 - Antibiotic Education pm1 - Prescription Opioid Use pm1 Prescriptions: - Tramadol 50 mg Oral Tablet - take 1 tablet by ORAL route every 8 hours as needed; 12 tablet; Refills: 0, pm1 Product Selection Permitted Signatures: Madina Plunkett, RN RN iw Car Shin NP PIPE [employer]TER [employer]INTENANCE pm1 Trenton Craft ab2
[2021-07-04 17:46] VITALS: TEMP 98
[2021-07-04 17:48] VITALS: BP 121/69; O2SAT 97
== END 2021-07-04 17:42 | disposition home or self-care (01) ==
LOC: ER 15:40
DX: M79.662 Pain in left lower leg (principal); I10 Essential (primary) hypertension; I48.91 Unspecified atrial fibrillation; Z95.818 Presence of other cardiac implants and grafts
CPT/HCPCS: 96375; 96374; 99283; J3010; J2405

== ENCOUNTER 2022-12-04 02:14 | Observation (INO) | payer OTHER ==
--- OUTSIDE RECORDS SUMMARY | 2022-12-04 02:20 | XMS REPORT | Continuity of Care Document ---
:1935 Demographics Address [address] [place] [address] Email Address Preferred Language Syrian Marital Status Unknown Evangelical Affiliation Unknown Race Unknown Additional Race(s) Unavailable White Ethnic Group Unknown Author Organization [facility] t Address [address] [facility] [address] [place] [address] Care Team Providers Name Role Phone Mamadou Leigh MD Primary Care Physician [phone] Antonina Day Attending Clinician Unavailable Santiago Garcia Attending Clinician Unavailable Marlo Martinez Attending Clinician Unavailable José Jimenez Attending Clinician Unavailable Mamadou Leigh Admitting Clinician Unavailable Santiago Garcia Admitting Clinician Unavailable Marlo Martinez Admitting Clinician Unavailable José Jimenez Admitting Clinician Unavailable Payers Payer Name Policy Type Policy Number Effective Date Expiration Date S ource Problems This patient has no known problems. Allergies, Adverse Reactions, Alerts Allergy Allergy Status Severity Reaction(s) Onset Inactive Treating Comm ents Source Name Type Date Date Clinician Iodinate DA Active [facility] M[facility]AL 3-28 Clear Contrast STATUS 00:00: Heck Media 00 [facility] No Known DA Active [facility] Allergie 1-11 Clear s 00:00: Heck 00 [facility] Social History Social Habit Start Date Stop Date Quantity Comments Source Gender identity [facility] Sexual orientation Method t Hospital Sex Assigned At [birth year] Met [facility] 00:00:00 00:00:00 Smoking Status Start Date Stop Date Source Tobacco smoking consumption unknown [facility] Medications This patient has no known medications. Procedures Procedure Date / Time Performed Performing Clinician Sour e [id number] 2021-07-20 00:00:00 RASSA [facility] [id number] 2021-07-20 00:00:00 [facility]SA [facility] [id number] 2021-07-15 00:00:00 LEEGA [facility] [id number] 2021-07-15 00:00:00 LEEGA [facility] [id number] 2021-07-15 00:00:00 LEEGA [facility] [id number] 2021-07-15 00:00:00 LEEGA [facility] [id number] 2021-04-18 00:00:00 CHEZU [facility] [id number] 2021-04-18 00:00:00 [facility]U [facility] [id number] 2021-04-18 00:00:00 [facility] [id number] 2021-04-18 00:00:00 [facility] [id number] 2021-04-18 00:00:00 [facility]U [facility] [id number] 2021-04-18 00:00:00 [facility] [id number] 2021-04-18 00:00:00 [facility] [id number] 2021-04-18 00:00:00 [facility] [id number] 2021-04-18 00:00:00 [facility] [id number] 2021-04-15 00:00:00 PATMA.12 [facility] Plan of Care Planned Activity Planned Date Details Comments Source Future Scheduled 2022-11-24 COVID-19 VACCINE (#1) [facility] Test 10:44:48 [code = COVID-19 VACCINE (#1)] Future Scheduled 2022-11-24 SHINGLES VACCINES (1 [facility] Test 10:44:48 of 2) [code = SHINGLES VACCINES (1 of 2)] Future Scheduled 2022-11-24 65+ PNEUMOCOCCAL Methodi [facility] Test 10:44:48 VACCINE (1 - PCV) [code = 65+ PNEUMOCOCCAL VACCINE (1 - PCV)] Future Scheduled 2022-11-24 INFLUENZA VACCINE (#1) [facility] Test 10:44:48 [code = INFLUENZA VACCINE (#1)] Encounters Start End Encounter Admission Attending Care Care Encounter Source Date/Time Date/Time Type Type Clinicians Facility Department ID 2021-08-31 2021-08-31 Outpatient KEYONNA NICO Day [facility] [id number] [facility] 05:09:00 05:09:00 [facility] 91 [facility] 2021-08-31 2021-08-31 Outpatient NICO Hannon [facility] [id number] [facility] 05:09:00 05:09:00 [facility] [id number] [facility] 2021-07-08 2021-07-22 Inpatient EM Jt, VONDACL INTE.02 [id number] [facility] 21:04:00 16:50:00 Santiago 83 [facility] 2021-06-29 2021-06-30 Inpatient KEYONNA Martinez [facility] [id number] [facility] 05:26:00 14:51:00 Marlo 33 Cl ear [facility] 2021-04-12 2021-04-27 Inpatient EM José Jimenez [facility] [id number] [facility] 23:50:00 17:10:00 93 [facility] Results Test Description Test Time Test Comments Results Result Comments Source BASIC METABOLIC PANEL 2021-08-30 13:05:00 Test Item Value Reference Range Interpretation Comme nts SODIUM (test code = NA) 143 mEq/L 134-147 N POTASSIUM (test code = K) 4.0 mEq/L 3.4-5.0 N CHLORIDE (test code = CL) 108 mEq/L 100-108 N CARBON DIOXIDE (test code = CO2) 29 mEq/l 21-33 N ANION GAP (test code = GAP) 10 0-20 N GLUCOSE (test code = GLU) 102 mg/dL 70-110 N BLOOD UREA NITROGEN (test code = 12 mg/dL 7-18 N BUN) GLOMERULAR FILTRATION RATE (test 63.6 70-80 L Units of measure = ml/min/1.73 code = GFR) m2 CREATININE (test code = CREAT) 1.1 mg/dL 0.6-1.3 N CALCIUM (test code = CA) 9.9 mg/dL 8.0-10.5 N COVID 19 Asymptomatic IH [id number] 12:58:00 Test Item Value Reference Range Interpretation Comments [...] perform moderate, high or waivedcomplexit y tests. PROTHROMBIN [id number] 12:46:00 Test Item Value Reference Range Interpretation Comments PROTHROMBIN TIME 15.3 SECONDS 9.3-12.9 H PATIENT (test code = PTP) INTERNATIONAL NORMAL 1.4 0.8-1.2 H TARGET INR BY RATIO (test code = INDICATIO N Indication INR) INR1. Prophylax is of venous thrombos is 2.0 - 3.0 (orthoped ic surgery), Proph ylaxis of venous throm bosis (other than hig h-risk surgery), Treat ment of Deep Vein Thrombosis/Pulm onary Embolism, Preve ntion of systemic emb olism - Tissue heart va lves, Acute Myocardia l Infarction (to prevent systemic emboli sm), Valvular heart disease, Atrial Fibrillation, Bileaflet mecha nical valve in aortic position.2. Mec hanical prosthetic valv es (high risk), 2. 5 - 3.5 Presence of Lup us Anticoagulant o r Antiphospholipi d Antibodies, Pre vention of systemic emb olism - Acute Myocardia l Infarction (to prevent recurrent infar ct). THROMBOPLASTIN TIME [id number] 12:46:00 Test Item Value Reference Range Interpretation Comments THROMBOPLASTIN TIME 33.0 Seconds 25.0-39.5 N Therape utic Range: PARTIAL (test code = 50.4 - 88.3 Seconds PTT) Effective 07/16/2018 CBC W/AUTO [id number] 12:33:00 Test Item Value Reference Range Interpretation Comments WHITE BLOOD CELL (test code = 7.8 x10 3/uL 4.5-11.0 WBC) RED BLOOD CELL (test code = 4.75 x10 6/uL 4.00-5.60 N RBC) HEMOGLOBIN (test code = HGB) 14.3 g/dL 12.5-16.9 N HEMATOCRIT (test code = HCT) 44.5 % 37.5-50.7 N MEAN CELL VOLUME (test code = 93.7 fL 81.0-99.0 N MCV) MEAN CELL HGB (test code = MCH) 30.1 pg 27.0-33.0 N MEAN CELL HGB CONCETRATION 32.1 g/dL 33.0-37.0 L (test code = MCHC) RED CELL DISTRIBUTION WIDTH CV 14.3 % 11.5-14.5 N (test code = RDW) RED CELL DISTRIBUTION WIDTH SD 49.2 fL 37.0-54.0 N (test code = RDW-SD) PLATELET COUNT (test code = 173 x10 3/uL 150-400 N PLT) MEAN PLATELET VOLUME (test code 10.9 fL 7.0-9.0 H = MPV) NEUTROPHIL % (test code = NT%) 61.5 % 56.0-77.0 N IMMATURE GRANULOCYTE % (test 0.3 % 0.0-2.0 N code = IG%) LYMPHOCYTE % (test code = LY%) 27.4 % 14.0-32.0 N MONOCYTE % (test code = MO%) 9.0 % 4.8-9.0 N EOSINOPHIL % (test code = EO%) 1.3 % 0.3-3.7 N BASOPHIL % (test code = BA%) 0.5 % 0.0-2.0 N NUCLEATED RBC % (test code = 0.0 % 0-0 N NRBC%) NEUTROPHIL # (test code = NT#) 4.82 x10 3/uL 2.0-7.6 N IMMATURE GRANULOCYTE # (test 0.02 x10 3/uL 0.00-0.03 N code = IG#) LYMPHOCYTE # (test code = LY#) 2.14 x10 3/uL 1.0-3.8 N MONOCYTE # (test code = MO#) 0.70 x10 3/uL 0.1-0.8 N EOSINOPHIL # (test code = EO#) 0.10 x10 3/uL 0.0-0.2 N BASOPHIL # (test code = BA#) 0.04 x10 3/uL 0.0-0.2 N NUCLEATED RBC # (test code = 0.00 x10 3/uL 0.0-0.1 N NRBC#) MANUAL DIFF REQUIRED (test code NO = MDIFF) CBC W/AUTO [id number] 08:24:00 Test Item Value Reference Range Interpretation Comments WHITE BLOOD CELL (test code = 14.8 x10 3/uL 4.5-11.0 H WBC) RED BLOOD CELL (test code = 3.02 x10 6/uL 4.00-5.60 L RBC) HEMOGLOBIN (test code = HGB) 9.3 g/dL 12.5-16.9 L HEMATOCRIT (test code = HCT) 30.7 % 37.5-50.7 L MEAN CELL VOLUME (test code = 101.7 fL 81.0-99.0 H MCV) MEAN CELL HGB (test code = 30.8 pg 27.0-33.0 N MCH) MEAN CELL HGB CONCETRATION 30.3 g/dL 33.0-37.0 L (test code = MCHC) RED CELL DISTRIBUTION WIDTH CV 16.9 % 11.5-14.5 H (test code = RDW) RED CELL DISTRIBUTION WIDTH SD 62.2 fL 37.0-54.0 H (test code = RDW-SD) PLATELET COUNT (test code = 300 x10 3/uL 150-400 N PLT) MEAN PLATELET VOLUME (test 10.1 fL 7.0-9.0 H code = MPV) NEUTROPHIL % (test code = NT%) 82.7 % 56.0-77.0 H IMMATURE GRANULOCYTE % (test 0.5 % 0.0-2.0 N code = IG%) LYMPHOCYTE % (test code = LY%) 11.9 % 14.0-32.0 L MONOCYTE % (test code = MO%) 4.8 % 4.8-9.0 N EOSINOPHIL % (test code = EO%) 0.0 % 0.3-3.7 L BASOPHIL % (test code = BA%) 0.1 % 0.0-2.0 N NUCLEATED RBC % (test code = 0.0 % 0-0 N NRBC%) NEUTROPHIL # (test code = NT#) 12.27 x10 3/uL 2.0-7.6 H IMMATURE GRANULOCYTE # (test 0.08 x10 3/uL 0.00-0.03 H code = IG#) LYMPHOCYTE # (test code = LY#) 1.76 x10 3/uL 1.0-3.8 N MONOCYTE # (test code = MO#) 0.71 x10 3/uL 0.1-0.8 N EOSINOPHIL # (test code = EO#) 0.00 x10 3/uL 0.0-0.2 N BASOPHIL # (test code = BA#) 0.02 x10 3/uL 0.0-0.2 N NUCLEATED RBC # (test code = 0.00 x10 3/uL 0.0-0.1 N NRBC#) MANUAL DIFF REQUIRED (test NO code = MDIFF) BASIC METABOLIC [id number] 07:37:00 Test Item Value Reference Range Interpretation Comments SODIUM (test code = NA) 143 mEq/L 134-147 N POTASSIUM (test code = 4.1 mEq/L 3.4-5.0 N K) CHLORIDE (test code = 111 mEq/L 100-108 H CL) CARBON DIOXIDE (test 25 mEq/l 21-33 N code = CO2) ANION GAP (test code = 11 0-20 N GAP) GLUCOSE (test code = 128 mg/dL 70-110 H GLU) BLOOD UREA NITROGEN 16 mg/dL 7-18 N (test code = BUN) GLOMERULAR FILTRATION 71.0 70-80 N Units of measure = RATE (test code = GFR) ml/mi n/1.73 m2 CREATININE (test code = 1.0 mg/dL 0.6-1.3 N CREAT) CALCIUM (test code = 8.5 mg/dL 8.0-10.5 N CA) [id number] 08:40:00 Test Item Value Reference Range Interpretation Comments ACT-ISTAT (test code 285 SEC 74-137 H Perform ed by certified = ROHAN) 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 Prophylax is of venous thrombos is 2.0 - 3.0 (orthoped ic surgery), Proph ylaxis of venous throm bosis (other than hig h-risk surgery), Treat ment of Deep Vein Thrombosis/Pulm onary Embolism, Preve ntion of systemic emb olism - Tissue heart va lves, Acute Myocardia l Infarction (to prevent systemic emboli sm), Valvular heart disease, Atrial Fibrillation, Bileaflet mecha nical valve in aortic position.2. Mec hanical prosthetic valv es (high risk), 2. 5 - 3.5 Presence of Lup us Anticoagulant o r Antiphospholipi d Antibodies, Pre vention of systemic emb olism - Acute Myocardia l Infarction (to prevent recurrent infar ct). THROMBOPLASTIN TIME [id number] 07:56:00 Test Item Value Reference Range Interpretation Comments THROMBOPLASTIN TIME 30.1 Seconds 25.0-39.5 N Therape utic Range: PARTIAL (test code = 50.4 - 88.3 Seconds PTT) Effective 07/16/2018 BASIC METABOLIC [id number] 07:27:00 Test Item Value Reference Range Interpretation Comments SODIUM (test code = NA) 141 mEq/L 134-147 N POTASSIUM (test code = 4.9 mEq/L 3.4-5.0 N K) CHLORIDE (test code = 110 mEq/L 100-108 H CL) CARBON DIOXIDE (test 23 mEq/l 21-33 N code = CO2) ANION GAP (test code = 13 0-20 N GAP) GLUCOSE (test code = 141 mg/dL 70-110 H GLU) BLOOD UREA NITROGEN 15 mg/dL 7-18 N (test code = BUN) GLOMERULAR FILTRATION 80.2 70-80 H Units of measure = RATE (test code = GFR) ml/mi n/1.73 m2 CREATININE (test code = 0.9 mg/dL 0.6-1.3 N CREAT) CALCIUM (test code = 9.0 mg/dL 8.0-10.5 N CA) CBC W/AUTO [id number] 07:24:00 Test Item Value Reference Range Interpretation Comments WHITE BLOOD CELL (test code = 8.0 x10 3/uL 4.5-11.0 N WBC) RED BLOOD CELL (test code = 3.38 x10 6/uL 4.00-5.60 L RBC) HEMOGLOBIN (test code = HGB) 10.4 g/dL 12.5-16.9 L HEMATOCRIT (test code = HCT) 33.3 % 37.5-50.7 L MEAN CELL VOLUME (test code = 98.5 fL 81.0-99.0 N MCV) MEAN CELL HGB (test code = MCH) 30.8 pg 27.0-33.0 N MEAN CELL HGB CONCETRATION 31.2 g/dL 33.0-37.0 L (test code = MCHC) RED CELL DISTRIBUTION WIDTH CV 16.3 % 11.5-14.5 H (test code = RDW) RED CELL DISTRIBUTION WIDTH SD 57.1 fL 37.0-54.0 H (test code = RDW-SD) PLATELET COUNT (test code = 342 x10 3/uL 150-400 N PLT) MEAN PLATELET VOLUME (test code 9.8 fL 7.0-9.0 H = MPV) NEUTROPHIL % (test code = NT%) 84.9 % 56.0-77.0 H IMMATURE GRANULOCYTE % (test 0.6 % 0.0-2.0 N code = IG%) LYMPHOCYTE % (test code = LY%) 13.1 % 14.0-32.0 L MONOCYTE % (test code = MO%) 1.1 % 4.8-9.0 L EOSINOPHIL % (test code = EO%) 0.0 % 0.3-3.7 L BASOPHIL % (test code = BA%) 0.3 % 0.0-2.0 N NUCLEATED RBC % (test code = 0.0 % 0-0 N NRBC%) NEUTROPHIL # (test code = NT#) 6.79 x10 3/uL 2.0-7.6 N IMMATURE GRANULOCYTE # (test 0.05 x10 3/uL 0.00-0.03 H code = IG#) LYMPHOCYTE # (test code = LY#) 1.05 x10 3/uL 1.0-3.8 N MONOCYTE # (test code = MO#) 0.09 x10 3/uL 0.1-0.8 L EOSINOPHIL # (test code = EO#) 0.00 x10 3/uL 0.0-0.2 N BASOPHIL # (test code = BA#) 0.02 x10 3/uL 0.0-0.2 N NUCLEATED RBC # (test code = 0.00 x10 3/uL 0.0-0.1 N NRBC#) MANUAL DIFF REQUIRED (test code NO = MDIFF) - XR CHEST 1 [id number] 00:00:00 [facility] : 1935 Sex: M FAX: Santiago Garcia MD [phone] [place]: [address]: FAX: Mamadou Quevedo [phone] FAX: Lucas Kan [phone] Name: KAYLYNN MISTRY : 1935 Age/S: 85/M [address] [place] [address] Blvd Unit #: [id number] Loc: [place] [address] Phys: Lucas Kan Acct: [id number] Dis Date: Status: ADM IN PHONE #: [phone] Exam Date: 07/20/2021 113 FAX #: [phone] Reason: WATCHMAN EXAMS: CPT CODE: [id number] XR CHEST 1 V 12794 PROCEDURE INFORMATION: Exam: XR Chest Exam date and time: 07/20/2021 10:55 AM Age: 85 years old Clinical indication: Device placement; Other: Watchman TECHNIQUE: Imaging protocol: XR of the chest. Views: 1 view. COMPARISON: CR XR CHEST 1V 06/29/2021 6:26 AM FINDINGS: There is a left atrial occlusion device. The cardiac silhouette is normal. There is nopneumothorax visible. There is no radiographic evidence of pulmonary edema. There is no radiographicevidence of pneumonia. IMPRESSION: There is no radiographic evidence of acute disease. at 1145 Reported and signed by: Kong Cervantes M.D. CC: Santiago Garcia; Mamadou Leigh MD; Lucas Kan Technologist: RT Aliza(R) Trnscrd Date/Time/By: 07/20/2021 (8307) : By: [email or web address] Orig Print D/T: S: 07/20/2021 (1020) PAGE 1 Signed ReportCOVID 19 Asymptomatic IH [id number] 17:04:00 Test Item Value Reference Range Interpretation Comments [...] high or waivedcomplexit y tests. BASIC METABOLIC [id number] 04:52:00 Test Item Value Reference Range Interpretation Comments SODIUM (test code = NA) 142 mEq/L 134-147 N POTASSIUM (test code = 4.1 mEq/L 3.4-5.0 N K) CHLORIDE (test code = 112 mEq/L 100-108 H CL) CARBON DIOXIDE (test 22 mEq/l 21-33 N code = CO2) ANION GAP (test code = 12 0-20 N GAP) GLUCOSE (test code = 109 mg/dL 70-110 N GLU) BLOOD UREA NITROGEN 12 mg/dL 7-18 N (test code = BUN) GLOMERULAR FILTRATION 80.2 70-80 H Units of measure = RATE (test code = GFR) ml/mi n/1.73 m2 CREATININE (test code = 0.9 mg/dL 0.6-1.3 N CREAT) CALCIUM (test code = 8.2 mg/dL 8.0-10.5 N CA) CBC W/AUTO [id number] 04:42:00 Test Item Value Reference Range Interpretation Comments WHITE BLOOD CELL (test code = 6.9 x10 3/uL 4.5-11.0 N WBC) RED BLOOD CELL (test code = 2.80 x10 6/uL 4.00-5.60 L RBC) HEMOGLOBIN (test code = HGB) 8.7 g/dL 12.5-16.9 L HEMATOCRIT (test code = HCT) 28.2 % 37.5-50.7 L MEAN CELL VOLUME (test code = 100.7 fL 81.0-99.0 H MCV) MEAN CELL HGB (test code = MCH) 31.1 pg 27.0-33.0 N MEAN CELL HGB CONCETRATION 30.9 g/dL 33.0-37.0 L (test code = MCHC) RED CELL DISTRIBUTION WIDTH CV 16.4 % 11.5-14.5 H (test code = RDW) RED CELL DISTRIBUTION WIDTH SD 58.1 fL 37.0-54.0 H (test code = RDW-SD) PLATELET COUNT (test code = 263 x10 3/uL 150-400 N PLT) MEAN PLATELET VOLUME (test code 10.1 fL 7.0-9.0 H = MPV) NEUTROPHIL % (test code = NT%) 56.4 % 56.0-77.0 N IMMATURE GRANULOCYTE % (test 0.4 % 0.0-2.0 N code = IG%) LYMPHOCYTE % (test code = LY%) 29.5 % 14.0-32.0 N MONOCYTE % (test code = MO%) 10.6 % 4.8-9.0 H EOSINOPHIL % (test code = EO%) 2.5 % 0.3-3.7 N BASOPHIL % (test code = BA%) 0.6 % 0.0-2.0 N NUCLEATED RBC % (test code = 0.0 % 0-0 N NRBC%) NEUTROPHIL # (test code = NT#) 3.87 x10 3/uL 2.0-7.6 N IMMATURE GRANULOCYTE # (test 0.03 x10 3/uL 0.00-0.03 N code = IG#) LYMPHOCYTE # (test code = LY#) 2.03 x10 3/uL 1.0-3.8 N MONOCYTE # (test code = MO#) 0.73 x10 3/uL 0.1-0.8 N EOSINOPHIL # (test code = EO#) 0.17 x10 3/uL 0.0-0.2 N BASOPHIL # (test code = BA#) 0.04 x10 3/uL 0.0-0.2 N NUCLEATED RBC # (test code = 0.00 x10 3/uL 0.0-0.1 N NRBC#) MANUAL DIFF REQUIRED (test code NO = MDIFF) HGB [id number] 15:24:00 Test Item Value Reference Range Interpretation Comments HEMOGLOBIN (test code = HGB) 8.9 g/dL 12.5-16.9 L HEMATOCRIT (test code = HCT) 29.0 % 37.5-50.7 L BASIC METABOLIC [id number] 13:38:00 Test Item Value Reference Range Interpretation Comments SODIUM (test code = NA) 140 mEq/L 134-147 N POTASSIUM (test code = 4.4 mEq/L 3.4-5.0 N K) CHLORIDE (test code = 110 mEq/L 100-108 H CL) CARBON DIOXIDE (test 27 mEq/l 21-33 N code = CO2) ANION GAP (test code = 7 0-20 N GAP) GLUCOSE (test code = 106 mg/dL 70-110 N GLU) BLOOD UREA NITROGEN 15 mg/dL 7-18 N (test code = BUN) GLOMERULAR FILTRATION 80.2 70-80 H Units of measure = RATE (test code = GFR) ml/mi n/1.73 m2 CREATININE (test code = 0.9 mg/dL 0.6-1.3 N CREAT) CALCIUM (test code = 8.7 mg/dL 8.0-10.5 N CA) CBC W/AUTO [id number] 13:28:00 Test Item Value Reference Range Interpretation Comments WHITE BLOOD CELL (test code = 8.1 x10 3/uL 4.5-11.0 N WBC) RED BLOOD CELL (test code = 3.30 x10 6/uL 4.00-5.60 L RBC) HEMOGLOBIN (test code = HGB) 10.0 g/dL 12.5-16.9 L HEMATOCRIT (test code = HCT) 32.4 % 37.5-50.7 L MEAN CELL VOLUME (test code = 98.2 fL 81.0-99.0 N MCV) MEAN CELL HGB (test code = MCH) 30.3 pg 27.0-33.0 N MEAN CELL HGB CONCETRATION 30.9 g/dL 33.0-37.0 L (test code = MCHC) RED CELL DISTRIBUTION WIDTH CV 16.0 % 11.5-14.5 H (test code = RDW) RED CELL DISTRIBUTION WIDTH SD 54.2 fL 37.0-54.0 H (test code = RDW-SD) PLATELET COUNT (test code = 374 x10 3/uL 150-400 N PLT) MEAN PLATELET VOLUME (test code 9.4 fL 7.0-9.0 H = MPV) NEUTROPHIL % (test code = NT%) 62.8 % 56.0-77.0 N IMMATURE GRANULOCYTE % (test 0.5 % 0.0-2.0 N code = IG%) LYMPHOCYTE % (test code = LY%) 27.5 % 14.0-32.0 N MONOCYTE % (test code = MO%) 7.0 % 4.8-9.0 N EOSINOPHIL % (test code = EO%) 1.5 % 0.3-3.7 N BASOPHIL % (test code = BA%) 0.7 % 0.0-2.0 N NUCLEATED RBC % (test code = 0.0 % 0-0 N NRBC%) NEUTROPHIL # (test code = NT#) 5.10 x10 3/uL 2.0-7.6 N IMMATURE GRANULOCYTE # (test 0.04 x10 3/uL 0.00-0.03 H code = IG#) LYMPHOCYTE # (test code = LY#) 2.23 x10 3/uL 1.0-3.8 N MONOCYTE # (test code = MO#) 0.57 x10 3/uL 0.1-0.8 N EOSINOPHIL # (test code = EO#) 0.12 x10 3/uL 0.0-0.2 N BASOPHIL # (test code = BA#) 0.06 x10 3/uL 0.0-0.2 N NUCLEATED RBC # (test code = 0.00 x10 3/uL 0.0-0.1 N NRBC#) MANUAL DIFF REQUIRED (test code NO = MDIFF) CBC W/AUTO [id number] 07:45:00 Test Item Value Reference Range Interpretation Comments WHITE BLOOD CELL (test code = 6.7 x10 3/uL 4.5-11.0 N WBC) RED BLOOD CELL (test code = 2.68 x10 6/uL 4.00-5.60 L RBC) HEMOGLOBIN (test code = HGB) 8.2 g/dL 12.5-16.9 L HEMATOCRIT (test code = HCT) 26.2 % 37.5-50.7 L MEAN CELL VOLUME (test code = 97.8 fL 81.0-99.0 N MCV) MEAN CELL HGB (test code = MCH) 30.6 pg 27.0-33.0 N MEAN CELL HGB CONCETRATION 31.3 g/dL 33.0-37.0 L (test code = MCHC) RED CELL DISTRIBUTION WIDTH CV 15.3 % 11.5-14.5 H (test code = RDW) RED CELL DISTRIBUTION WIDTH SD 51.7 fL 37.0-54.0 N (test code = RDW-SD) PLATELET COUNT (test code = 295 x10 3/uL 150-400 N PLT) MEAN PLATELET VOLUME (test code 9.6 fL 7.0-9.0 H = MPV) NEUTROPHIL % (test code = NT%) 55.0 % 56.0-77.0 L IMMATURE GRANULOCYTE % (test 0.6 % 0.0-2.0 N code = IG%) LYMPHOCYTE % (test code = LY%) 31.4 % 14.0-32.0 N MONOCYTE % (test code = MO%) 10.1 % 4.8-9.0 H EOSINOPHIL % (test code = EO%) 2.0 % 0.3-3.7 N BASOPHIL % (test code = BA%) 0.9 % 0.0-2.0 N NUCLEATED RBC % (test code = 0.0 % 0-0 N NRBC%) NEUTROPHIL # (test code = NT#) 3.66 x10 3/uL 2.0-7.6 N IMMATURE GRANULOCYTE # (test 0.04 x10 3/uL 0.00-0.03 H code = IG#) LYMPHOCYTE # (test code = LY#) 2.09 x10 3/uL 1.0-3.8 N MONOCYTE # (test code = MO#) 0.67 x10 3/uL 0.1-0.8 N EOSINOPHIL # (test code = EO#) 0.13 x10 3/uL 0.0-0.2 N BASOPHIL # (test code = BA#) 0.06 x10 3/uL 0.0-0.2 N NUCLEATED RBC # (test code = 0.00 x10 3/uL 0.0-0.1 N NRBC#) MANUAL DIFF REQUIRED (test code NO = MDIFF) BASIC METABOLIC [id number] 07:43:00 Test Item Value Reference Range Interpretation Comments SODIUM (test code = NA) 141 mEq/L 134-147 N POTASSIUM (test code = 4.2 mEq/L 3.4-5.0 N K) CHLORIDE (test code = 112 mEq/L 100-108 H CL) CARBON DIOXIDE (test 25 mEq/l 21-33 N code = CO2) ANION GAP (test code = 8 0-20 N GAP) GLUCOSE (test code = 95 mg/dL 70-110 N GLU) BLOOD UREA NITROGEN 15 mg/dL 7-18 N (test code = BUN) GLOMERULAR FILTRATION 91.9 70-80 H Units of measure = RATE (test code = GFR) ml/mi n/1.73 m2 CREATININE (test code = 0.8 mg/dL 0.6-1.3 N CREAT) CALCIUM (test code = 8.2 mg/dL 8.0-10.5 N CA) TOTAL IRON BINDING [id number] 18:55:00 Test Item Value Reference Range Interpretation Comments SERUM IRON (test code = IRON) 50 mcg/dL 35-150 N TOTAL IRON BINDING CAPACITY (test 231 mcg/dL 260-445 L code = TIBC) UIBC (test code = UIBC) 181 mcg/dL IRON SATURATION (test code = 21.6 % 14-34 N FESAT) [id number] 18:55:00 Test Item Value Reference Range Interpretation Comments FERRITIN (test code = ROBERT) 283.3 ng/mL 23.9-336.2 N BASIC METABOLIC [id number] 05:46:00 Test Item Value Reference Range Interpretation Comments SODIUM (test code = NA) 141 mEq/L 134-147 N POTASSIUM (test code = 4.1 mEq/L 3.4-5.0 N K) CHLORIDE (test code = 110 mEq/L 100-108 H CL) CARBON DIOXIDE (test 25 mEq/l 21-33 N code = CO2) ANION GAP (test code = 10 0-20 N GAP) GLUCOSE (test code = 105 mg/dL 70-110 N GLU) BLOOD UREA NITROGEN 19 mg/dL 7-18 H (test code = BUN) GLOMERULAR FILTRATION 80.2 70-80 H Units of measure = RATE (test code = GFR) ml/mi n/1.73 m2 CREATININE (test code = 0.9 mg/dL 0.6-1.3 N CREAT) CALCIUM (test code = 8.3 mg/dL 8.0-10.5 N CA) PROTHROMBIN [id number] 05:36:00 Test Item Value Reference Range Interpretation Comments PROTHROMBIN TIME 24.3 SECONDS 9.3-12.9 H PATIENT (test code = PTP) INTERNATIONAL NORMAL 2.2 0.8-1.2 H TARGET INR BY RATIO (test code = INDICATIO N Indication INR) INR1. Prophylax is of venous thrombos is 2.0 - 3.0 (orthoped ic surgery), Proph ylaxis of venous throm bosis (other than hig h-risk surgery), Treat ment of Deep Vein Thrombosis/Pulm onary Embolism, Preve ntion of systemic emb olism - Tissue heart va lves, Acute Myocardia l Infarction (to prevent systemic emboli sm), Valvular heart disease, Atrial Fibrillation, Bileaflet mecha nical valve in aortic position.2. Mec hanical prosthetic valv es (high risk), 2. 5 - 3.5 Presence of La pus Anticoagulant o r Antiphospholipi d Antibodies, Pre vention of systemic emb olism - Acute Myocardia l Infarction (to prevent recurrent infar ct). THROMBOPLASTIN TIME [id number] 05:36:00 Test Item Value Reference Range Interpretation Comments THROMBOPLASTIN TIME 32.7 Seconds 25.0-39.5 N Therape utic Range: PARTIAL (test code = 50.4 - 88.3 Seconds PTT) Effective 07/16/2018 CBC W/AUTO [id number] 05:30:00 Test Item Value Reference Range Interpretation Comments WHITE BLOOD CELL (test code = 8.4 x10 3/uL 4.5-11.0 N WBC) RED BLOOD CELL (test code = 2.30 x10 6/uL 4.00-5.60 L RBC) HEMOGLOBIN (test code = HGB) 7.1 g/dL 12.5-16.9 L HEMATOCRIT (test code = HCT) 22.3 % 37.5-50.7 L MEAN CELL VOLUME (test code = 97.0 fL 81.0-99.0 N MCV) MEAN CELL HGB (test code = MCH) 30.9 pg 27.0-33.0 N MEAN CELL HGB CONCETRATION 31.8 g/dL 33.0-37.0 L (test code = MCHC) RED CELL DISTRIBUTION WIDTH CV 14.7 % 11.5-14.5 H (test code = RDW) RED CELL DISTRIBUTION WIDTH SD 50.7 fL 37.0-54.0 N (test code = RDW-SD) PLATELET COUNT (test code = 313 x10 3/uL 150-400 N PLT) MEAN PLATELET VOLUME (test code 9.8 fL 7.0-9.0 H = MPV) NEUTROPHIL % (test code = NT%) 64.1 % 56.0-77.0 N IMMATURE GRANULOCYTE % (test 0.7 % 0.0-2.0 N code = IG%) LYMPHOCYTE % (test code = LY%) 22.7 % 14.0-32.0 N MONOCYTE % (test code = MO%) 9.7 % 4.8-9.0 H EOSINOPHIL % (test code = EO%) 1.8 % 0.3-3.7 N BASOPHIL % (test code = BA%) 1.0 % 0.0-2.0 N NUCLEATED RBC % (test code = 0.0 % 0-0 N NRBC%) NEUTROPHIL # (test code = NT#) 5.36 x10 3/uL 2.0-7.6 N IMMATURE GRANULOCYTE # (test 0.06 x10 3/uL 0.00-0.03 H code = IG#) LYMPHOCYTE # (test code = LY#) 1.90 x10 3/uL 1.0-3.8 N MONOCYTE # (test code = MO#) 0.81 x10 3/uL 0.1-0.8 H EOSINOPHIL # (test code = EO#) 0.15 x10 3/uL 0.0-0.2 N BASOPHIL # (test code = BA#) 0.08 x10 3/uL 0.0-0.2 N NUCLEATED RBC # (test code = 0.00 x10 3/uL 0.0-0.1 N NRBC#) MANUAL DIFF REQUIRED (test code NO = MDIFF) COVID 19 Asymptomatic IH [id number] 20:21:00 Test Item Value Reference Range Interpretation Comments [...] high or waivedcomplexit y tests. BASIC METABOLIC [id number] 07:27:00 Test Item Value Reference Range Interpretation Comments SODIUM (test code = NA) 140 mEq/L 134-147 N POTASSIUM (test code = 4.1 mEq/L 3.4-5.0 N K) CHLORIDE (test code = 109 mEq/L 100-108 H CL) CARBON DIOXIDE (test 23 mEq/l 21-33 N code = CO2) ANION GAP (test code = 12 0-20 N GAP) GLUCOSE (test code = 101 mg/dL 70-110 N GLU) BLOOD UREA NITROGEN 17 mg/dL 7-18 N (test code = BUN) GLOMERULAR FILTRATION 91.9 70-80 H Units of measure = RATE (test code = GFR) ml/mi n/1.73 m2 CREATININE (test code = 0.8 mg/dL 0.6-1.3 N CREAT) CALCIUM (test code = 8.3 mg/dL 8.0-10.5 N CA) CBC W/AUTO [id number] 07:06:00 Test Item Value Reference Range Interpretation Comments WHITE BLOOD CELL (test code = 9.4 x10 3/uL 4.5-11.0 N WBC) RED BLOOD CELL (test code = 2.37 x10 6/uL 4.00-5.60 L RBC) HEMOGLOBIN (test code = HGB) 7.3 g/dL 12.5-16.9 L HEMATOCRIT (test code = HCT) 23.4 % 37.5-50.7 L MEAN CELL VOLUME (test code = 98.7 fL 81.0-99.0 N MCV) MEAN CELL HGB (test code = MCH) 30.8 pg 27.0-33.0 N MEAN CELL HGB CONCETRATION 31.2 g/dL 33.0-37.0 L (test code = MCHC) RED CELL DISTRIBUTION WIDTH CV 14.3 % 11.5-14.5 N (test code = RDW) RED CELL DISTRIBUTION WIDTH SD 50.5 fL 37.0-54.0 N (test code = RDW-SD) PLATELET COUNT (test code = 292 x10 3/uL 150-400 N PLT) MEAN PLATELET VOLUME (test code 9.9 fL 7.0-9.0 H = MPV) NEUTROPHIL % (test code = NT%) 58.3 % 56.0-77.0 N IMMATURE GRANULOCYTE % (test 0.9 % 0.0-2.0 N code = IG%) LYMPHOCYTE % (test code = LY%) 28.2 % 14.0-32.0 N MONOCYTE % (test code = MO%) 9.7 % 4.8-9.0 H EOSINOPHIL % (test code = EO%) 2.2 % 0.3-3.7 N BASOPHIL % (test code = BA%) 0.7 % 0.0-2.0 N NUCLEATED RBC % (test code = 0.0 % 0-0 N NRBC%) NEUTROPHIL # (test code = NT#) 5.48 x10 3/uL 2.0-7.6 N IMMATURE GRANULOCYTE # (test 0.08 x10 3/uL 0.00-0.03 H code = IG#) LYMPHOCYTE # (test code = LY#) 2.65 x10 3/uL 1.0-3.8 N MONOCYTE # (test code = MO#) 0.91 x10 3/uL 0.1-0.8 H EOSINOPHIL # (test code = EO#) 0.21 x10 3/uL 0.0-0.2 H BASOPHIL # (test code = BA#) 0.07 x10 3/uL 0.0-0.2 N NUCLEATED RBC # (test code = 0.00 x10 3/uL 0.0-0.1 N NRBC#) MANUAL DIFF REQUIRED (test code NO = MDIFF) BASIC METABOLIC [id number] 07:37:00 Test Item Value Reference Range Interpretation Comments SODIUM (test code = NA) 139 mEq/L 134-147 N POTASSIUM (test code = 3.7 mEq/L 3.4-5.0 N K) CHLORIDE (test code = 108 mEq/L 100-108 N CL) CARBON DIOXIDE (test 24 mEq/l 21-33 N code = CO2) ANION GAP (test code = 10 0-20 N GAP) GLUCOSE (test code = 95 mg/dL 70-110 N GLU) BLOOD UREA NITROGEN 18 mg/dL 7-18 N (test code = BUN) GLOMERULAR FILTRATION 80.2 70-80 H Units of measure = RATE (test code = GFR) ml/mi n/1.73 m2 CREATININE (test code = 0.9 mg/dL 0.6-1.3 N CREAT) CALCIUM (test code = 8.6 mg/dL 8.0-10.5 N CA) CBC W/AUTO [id number] 07:01:00 Test Item Value Reference Range Interpretation Comments WHITE BLOOD CELL (test code = 9.8 x10 3/uL 4.5-11.0 N WBC) RED BLOOD CELL (test code = 2.77 x10 6/uL 4.00-5.60 L RBC) HEMOGLOBIN (test code = HGB) 8.5 g/dL 12.5-16.9 L HEMATOCRIT (test code = HCT) 27.5 % 37.5-50.7 L MEAN CELL VOLUME (test code = 99.3 fL 81.0-99.0 H MCV) MEAN CELL HGB (test code = MCH) 30.7 pg 27.0-33.0 N MEAN CELL HGB CONCETRATION 30.9 g/dL 33.0-37.0 L (test code = MCHC) RED CELL DISTRIBUTION WIDTH CV 14.1 % 11.5-14.5 N (test code = RDW) RED CELL DISTRIBUTION WIDTH SD 50.8 fL 37.0-54.0 N (test code = RDW-SD) PLATELET COUNT (test code = 314 x10 3/uL 150-400 N PLT) MEAN PLATELET VOLUME (test code 9.9 fL 7.0-9.0 H = MPV) NEUTROPHIL % (test code = NT%) 58.8 % 56.0-77.0 N IMMATURE GRANULOCYTE % (test 0.8 % 0.0-2.0 N code = IG%) LYMPHOCYTE % (test code = LY%) 28.0 % 14.0-32.0 N MONOCYTE % (test code = MO%) 9.4 % 4.8-9.0 H EOSINOPHIL % (test code = EO%) 2.4 % 0.3-3.7 N BASOPHIL % (test code = BA%) 0.6 % 0.0-2.0 N NUCLEATED RBC % (test code = 0.0 % 0-0 N NRBC%) NEUTROPHIL # (test code = NT#) 5.78 x10 3/uL 2.0-7.6 N IMMATURE GRANULOCYTE # (test 0.08 x10 3/uL 0.00-0.03 H code = IG#) LYMPHOCYTE # (test code = LY#) 2.75 x10 3/uL 1.0-3.8 N MONOCYTE # (test code = MO#) 0.92 x10 3/uL 0.1-0.8 H EOSINOPHIL # (test code = EO#) 0.24 x10 3/uL 0.0-0.2 H BASOPHIL # (test code = BA#) 0.06 x10 3/uL 0.0-0.2 N NUCLEATED RBC # (test code = 0.00 x10 3/uL 0.0-0.1 N NRBC#) MANUAL DIFF REQUIRED (test code NO = MDIFF) BASIC METABOLIC [id number] 07:59:00 Test Item Value Reference Range Interpretation Comments SODIUM (test code = NA) 140 mEq/L 134-147 N POTASSIUM (test code = 4.0 mEq/L 3.4-5.0 N K) CHLORIDE (test code = 110 mEq/L 100-108 H CL) CARBON DIOXIDE (test 23 mEq/l 21-33 N code = CO2) ANION GAP (test code = 11 0-20 N GAP) GLUCOSE (test code = 110 mg/dL 70-110 N GLU) BLOOD UREA NITROGEN 16 mg/dL 7-18 (test code = BUN) GLOMERULAR FILTRATION 91.9 70-80 H Units of measure = RATE (test code = GFR) ml/mi n/1.73 m2 CREATININE (test code = 0.8 mg/dL 0.6-1.3 N CREAT) CALCIUM (test code = 8.3 mg/dL 8.0-10.5 N CA) CBC W/AUTO [id number] 07:41:00 Test Item Value Reference Range Interpretation Comments WHITE BLOOD CELL (test code = 10.6 x10 3/uL 4.5-11.0 N WBC) RED BLOOD CELL (test code = 2.74 x10 6/uL 4.00-5.60 L RBC) HEMOGLOBIN (test code = HGB) 8.5 g/dL 12.5-16.9 L HEMATOCRIT (test code = HCT) 26.9 % 37.5-50.7 L MEAN CELL VOLUME (test code = 98.2 fL 81.0-99.0 N MCV) MEAN CELL HGB (test code = MCH) 31.0 pg 27.0-33.0 N MEAN CELL HGB CONCETRATION 31.6 g/dL 33.0-37.0 L (test code = MCHC) RED CELL DISTRIBUTION WIDTH CV 14.1 % 11.5-14.5 N (test code = RDW) RED CELL DISTRIBUTION WIDTH SD 50.2 fL 37.0-54.0 N (test code = RDW-SD) PLATELET COUNT (test code = 287 x10 3/uL 150-400 N PLT) MEAN PLATELET VOLUME (test code 9.6 fL 7.0-9.0 H = MPV) NEUTROPHIL % (test code = NT%) 67.9 % 56.0-77.0 N IMMATURE GRANULOCYTE % (test 0.8 % 0.0-2.0 N code = IG%) LYMPHOCYTE % (test code = LY%) 19.3 % 14.0-32.0 N MONOCYTE % (test code = MO%) 9.0 % 4.8-9.0 N EOSINOPHIL % (test code = EO%) 2.4 % 0.3-3.7 N BASOPHIL % (test code = BA%) 0.6 % 0.0-2.0 N NUCLEATED RBC % (test code = 0.0 % 0-0 N NRBC%) NEUTROPHIL # (test code = NT#) 7.20 x10 3/uL 2.0-7.6 N IMMATURE GRANULOCYTE # (test 0.09 x10 3/uL 0.00-0.03 H code = IG#) LYMPHOCYTE # (test code = LY#) 2.04 x10 3/uL 1.0-3.8 N MONOCYTE # (test code = MO#) 0.95 x10 3/uL 0.1-0.8 H EOSINOPHIL # (test code = EO#) 0.25 x10 3/uL 0.0-0.2 H BASOPHIL # (test code = BA#) 0.06 x10 3/uL 0.0-0.2 N NUCLEATED RBC # (test code = 0.00 x10 3/uL 0.0-0.1 N NRBC#) MANUAL DIFF REQUIRED (test code NO = MDIFF) BASIC METABOLIC [id number] 07:48:00 Test Item Value Reference Range Interpretation Comments SODIUM (test code = NA) 138 mEq/L 134-147 N POTASSIUM (test code = 4.2 mEq/L 3.4-5.0 N K) CHLORIDE (test code = 107 mEq/L 100-108 N CL) CARBON DIOXIDE (test 22 mEq/l 21-33 N code = CO2) ANION GAP (test code = 13 0-20 N GAP) GLUCOSE (test code = 91 mg/dL 70-110 N GLU) BLOOD UREA NITROGEN 12 mg/dL 7-18 N (test code = BUN) GLOMERULAR FILTRATION 91.9 70-80 H Units of measure = RATE (test code = GFR) ml/mi n/1.73 m2 CREATININE (test code = 0.8 mg/dL 0.6-1.3 N CREAT) CALCIUM (test code = 8.7 mg/dL 8.0-10.5 N CA) CBC W/AUTO [id number] 07:41:00 Test Item Value Reference Range Interpretation Comments WHITE BLOOD CELL (test code = 11.9 x10 3/uL 4.5-11.0 H WBC) RED BLOOD CELL (test code = 2.79 x10 6/uL 4.00-5.60 L RBC) HEMOGLOBIN (test code = HGB) 8.6 g/dL 12.5-16.9 L HEMATOCRIT (test code = HCT) 27.4 % 37.5-50.7 L MEAN CELL VOLUME (test code = 98.2 fL 81.0-99.0 N MCV) MEAN CELL HGB (test code = MCH) 30.8 pg 27.0-33.0 N MEAN CELL HGB CONCETRATION 31.4 g/dL 33.0-37.0 L (test code = MCHC) RED CELL DISTRIBUTION WIDTH CV 14.0 % 11.5-14.5 N (test code = RDW) RED CELL DISTRIBUTION WIDTH SD 49.5 fL 37.0-54.0 N (test code = RDW-SD) PLATELET COUNT (test code = 314 x10 3/uL 150-400 N PLT) MEAN PLATELET VOLUME (test code 9.8 fL 7.0-9.0 H = MPV) NEUTROPHIL % (test code = NT%) 71.4 % 56.0-77.0 N IMMATURE GRANULOCYTE % (test 0.8 % 0.0-2.0 N code = IG%) LYMPHOCYTE % (test code = LY%) 16.3 % 14.0-32.0 N MONOCYTE % (test code = MO%) 9.2 % 4.8-9.0 H EOSINOPHIL % (test code = EO%) 1.9 % 0.3-3.7 N BASOPHIL % (test code = BA%) 0.4 % 0.0-2.0 N NUCLEATED RBC % (test code = 0.0 % 0-0 N NRBC%) NEUTROPHIL # (test code = NT#) 8.52 x10 3/uL 2.0-7.6 H IMMATURE GRANULOCYTE # (test 0.09 x10 3/uL 0.00-0.03 H code = IG#) LYMPHOCYTE # (test code = LY#) 1.94 x10 3/uL 1.0-3.8 N MONOCYTE # (test code = MO#) 1.10 x10 3/uL 0.1-0.8 H EOSINOPHIL # (test code = EO#) 0.23 x10 3/uL 0.0-0.2 H BASOPHIL # (test code = BA#) 0.05 x10 3/uL 0.0-0.2 N NUCLEATED RBC # (test code = 0.00 x10 3/uL 0.0-0.1 N NRBC#) MANUAL DIFF REQUIRED (test code NO = MDIFF) - DOP ART QUALITY CONTROL CLERK LEVEL [id number] 00:00:00 [facility] : 1935 Sex: M Name: KAYLYNN MISTRY [facility] [place] : 1935 Age/S: 85 / M [address] [place] [address] Blvd Unit #: [id number] Loc: STEVE [place] [address] Phys: Santiago Garcia MD Acct: [id number] Dis Date: Status: ADM IN PHONE #: [phone] Exam Date: 07/10/2021 1619 FAX #: [phone] Reason: LLE pain, swelling, recent a ngiogram. EXAMS: CPT CODE: [id number] DOP ART QUALITY CONTROL CLERK LEVEL HILARIO [id number] PROCEDURE INFORMATION: Exam: US Duplex Lower Extremity Arteries Exam date and time: 07/10/2021 3:51 PM Age: 85 years old Clinical indication: Condition or disease; Other: Left leg ulcers; Additional info: Lle pain, swelling, recent angiogram. TECHNIQUE: Imaging protocol: Real-time ultrasound scan of the arteries of the bilateral lower extremities with 2-D boggs scale, color Doppler flow and spectral waveform analysis. Images documented and saved. COMPARISON: CR XR FOOT 3 + V LT 07/10/2021 2:40 PM Right lower extremity: The right ankle-brachial index is 1.25 which is normal. Multiphasic flow is seen in the right common femoral artery, th roughout the right superficial femoral artery, right popliteal artery and right posterior tibial artery. Monophasic flow is seen in the right dorsalis pedis artery. Scattered atherosclerotic disease seen about the right lower extremity arteries. No elevated velocities identified about the right lower extremity arteries. Left lower extremity: The left ankle-brachial index is 1.06 which is normal. Scattered atherosclerotic disease seen about the left lower extremity arteries. Monophasic flow is seen in the left common femoral artery, throughout the left superficial femoral artery, left popliteal artery and in the left posterior tibial artery. Dampened monophasic flow is identified in the left dorsalis pedis artery. No elevated velocities identified about the left lower extremity arteries. Impression: 1. Normal ankle brachial indices bilaterally. 2. No ultrasound evidence for hemodynamically significant stenosis in the right lower extremity arteries. 3. 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 at 0718 Reported and signed by: Awais Sharpe PAGE 1 Signed Report (CONTINUED) Name: [facility] : 1935 Age/S: 85 / M [address] [place] [address] Blvd Unit #: [id number] Loc: [place] [address] Phys: Santiago Garcia MD Acct: [id number] Dis Date: Status: ADM IN PHONE #: [phone] Exam Date: 07/10/2021 1619 FAX #: [phone] Reason: LLE pain, swelling, recent angiogram. EXAMS: CPT CODE: [id number] DOP ART QUALITY CONTROL CLERK LEVEL HILARIO [id number] (Continued) CC: Santiago Garcia; Mamadou Leigh MD Technologist: Emily Pavon RDMS(OB) Trnscb Date/Time: 07/11/2021 ([phone] [email or web address] Orig Print D/T: S: 07/11/2021 (0719) Probe: PAGE 2 Signed ReportCBC W/AUTO DIFF 2021-07-10 08:20:00 Test Item Value Reference Range Interpretation Comments WHITE BLOOD CELL (test code = 10.2 x10 3/uL 4.5-11.0 N WBC) RED BLOOD CELL (test code = 2.44 x10 6/uL 4.00-5.60 L RBC) HEMOGLOBIN (test code = HGB) 7.6 g/dL 12.5-16.9 L HEMATOCRIT (test code = HCT) 23.8 % 37.5-50.7 L MEAN CELL VOLUME (test code = 97.5 fL 81.0-99.0 N MCV) MEAN CELL HGB (test code = MCH) 31.1 pg 27.0-33.0 N MEAN CELL HGB CONCETRATION 31.9 g/dL 33.0-37.0 L (test code = MCHC) RED CELL DISTRIBUTION WIDTH CV 14.2 % 11.5-14.5 N (test code = RDW) RED CELL DISTRIBUTION WIDTH SD 49.5 fL 37.0-54.0 N (test code = RDW-SD) PLATELET COUNT (test code = 254 x10 3/uL 150-400 N PLT) MEAN PLATELET VOLUME (test code 9.8 fL 7.0-9.0 H = MPV) NEUTROPHIL % (test code = NT%) 70.2 % 56.0-77.0 N IMMATURE GRANULOCYTE % (test 0.7 % 0.0-2.0 N code = IG%) LYMPHOCYTE % (test code = LY%) 17.5 % 14.0-32.0 N MONOCYTE % (test code = MO%) 9.4 % 4.8-9.0 H EOSINOPHIL % (test code = EO%) 1.6 % 0.3-3.7 N BASOPHIL % (test code = BA%) 0.6 % 0.0-2.0 N NUCLEATED RBC % (test code = 0.0 % 0-0 N NRBC%) NEUTROPHIL # (test code = NT#) 7.19 x10 3/uL 2.0-7.6 N IMMATURE GRANULOCYTE # (test 0.07 x10 3/uL 0.00-0.03 H code = IG#) LYMPHOCYTE # (test code = LY#) 1.79 x10 3/uL 1.0-3.8 N MONOCYTE # (test code = MO#) 0.96 x10 3/uL 0.1-0.8 H EOSINOPHIL # (test code = EO#) 0.16 x10 3/uL 0.0-0.2 N BASOPHIL # (test code = BA#) 0.06 x10 3/uL 0.0-0.2 N NUCLEATED RBC # (test code = 0.00 x10 3/uL 0.0-0.1 N NRBC#) MANUAL DIFF REQUIRED (test code NO = MDIFF) BASIC METABOLIC [id number] 07:33:00 Test Item Value Reference Range Interpretation Comments SODIUM (test code = NA) 140 mEq/L 134-147 N POTASSIUM (test code = 4.0 mEq/L 3.4-5.0 N K) CHLORIDE (test code = 111 mEq/L 100-108 H CL) CARBON DIOXIDE (test 21 mEq/l 21-33 N code = CO2) ANION GAP (test code = 12 0-20 N GAP) GLUCOSE (test code = 82 mg/dL 70-110 GLU) BLOOD UREA NITROGEN 10 mg/dL 7-18 (test code = BUN) GLOMERULAR FILTRATION 91.9 70-80 H Units of measure = RATE (test code = GFR) ml/mi n/1.73 m2 CREATININE (test code = 0.8 mg/dL 0.6-1.3 N CREAT) CALCIUM (test code = 8.4 mg/dL 8.0-10.5 N CA) - XR FOOT 3 + V [id number] 00:00:[address] : 1935 Sex: M FAX: Santiago Garcia MD [phone] [place]: St: ADM FAX: Mamadou Quevedo [phone] FAX: Reuben Douglas DPM [phone] Name: KAYLYNN MISTRY [facility] : 1935 Age/S: 85/M [address] [place] [address] Unit#: [id number] Loc: G.55[address] [place] [address] Phys: Reuben Douglas DPM Acct: [id number] Dis Date: Status: ADM IN PHONE #: [phone] Exam Date: 07/10/2021 1500 FAX #: [phone] Reason: injury leftfoot EXAMS: CPT CODE: [id number] XR FOOT 3 + [place] [id number] PROCEDURE INFORMATION: Exam: XR Left Foot Exam date and time: 07/10/2021 2:40 PM Age: 85 years old Clinical indication: Other: Injury left foot TECHNIQUE: Imaging protocol: XR Left foot. Views: 3 or more views. AP Oblique Lateral COMPARISON: CR XRFOOT 3 + V LT 07/08/2021 7:05 PM FINDINGS: Bones/joints: No fracture or dislocation. Small plantar calcaneal spur. Small enthesophyte at the insertion of the Achilles tendon. 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 No cortical destruction. Soft tissues: Soft tissue swelling. Notes: If there is further concern, recommend follow-up radiographs or MRI for complete assessment. IMPRESSION: No acute abnormality. t 1553 Reported and signed by: Devi Rayo M.D. CC: Santiago Garcia; Mamadou Leigh MD; Reuben Douglas DPM Technologist: RT Carie(Aleida) Trnscrd Date/Time/By: 07/10/2021 (1553) : By: [email or web address] Orig Print D/T: S: 07/10/2021 (1553) PAGE 1 Signed ReportUA RFLX MICR CULT IF [id number] 20:05:00 Test Item Value Reference Range Interpretation Comments UA COLOR (test code = COLU) YELLOW YEL/STRAW UA APPEARANCE (test code = CLEAR CLEAR APPU) UA GLUCOSE DIPSTICK (test code NEGATIVE NEGATIVE = DGLUU) UA BILIRUBIN DIPSTICK (test NEGATIVE NEGATIVE code = BILU) UA KETONE DIPSTICK (test code NEGATIVE NEGATIVE = KETU) UA SPECIFIC GRAVITY (test code 1.015 1.005-1.030 N = SGU) UA BLOOD DIPSTICK (test code = 1+ NEGATIVE A MARC) UA PH DIPSTICK (test code = 6.0 5.0-7.0 N SAM) UA PROTEIN DIPSTICK (test code NEGATIVE NEGATIVE = PROU) UA UROBILINIOGEN DIPSTICK 0.2 mg/dL 0.2-1.0 (test code = URO) UA NITRITE DIPSTICK (test code NEGATIVE NEGATIVE = ALINA) UA LEUKOCYTE ESTERASE DIPSTICK NEGATIVE NEGATIVE (test code = LEUU) UA WBC (test code = WBCU) 0-3 WBC/HPF 0-3 UA RBC (test code = RBCU) 4-10 RBC/HPF 0-3 UA WBC NO REFLEX (test code = 0-3 WBC/HPF 0-3 WBCUCL) UA BACTERIA (test code = BACU) NONE SEEN /HPF NONE SEEN UA SQUAMOUS CELLS (test code = 0-5 /HPF NONE SEEN SQU) UA TRANSITIONAL CELLS (test TRACE /HPF NONE SEEN code = TRANU) UA MUCUS (test code = MUCU) TRACE /LPF NONE SEEN Indication for culture: RiskForSepsis-no oth srcSpecimen Description: MID STREAM CBC W/AUTO [id number] 19:19:00 Test Item Value Reference Range Interpretation Comments WHITE BLOOD CELL (test code = 10.0 x10 3/uL 4.5-11.0 N WBC) RED BLOOD CELL (test code = 2.62 x10 6/uL 4.00-5.60 L RBC) HEMOGLOBIN (test code = HGB) 8.0 g/dL 12.5-16.9 L HEMATOCRIT (test code = HCT) 25.7 % 37.5-50.7 L MEAN CELL VOLUME (test code = 98.1 fL 81.0-99.0 N MCV) MEAN CELL HGB (test code = MCH) 30.5 pg 27.0-33.0 N MEAN CELL HGB CONCETRATION 31.1 g/dL 33.0-37.0 L (test code = MCHC) RED CELL DISTRIBUTION WIDTH CV 14.1 % 11.5-14.5 N (test code = RDW) RED CELL DISTRIBUTION WIDTH SD 49.4 fL 37.0-54.0 N (test code = RDW-SD) PLATELET COUNT (test code = 257 x10 3/uL 150-400 N PLT) MEAN PLATELET VOLUME (test code 9.8 fL 7.0-9.0 H = MPV) NEUTROPHIL % (test code = NT%) 68.0 % 56.0-77.0 N IMMATURE GRANULOCYTE % (test 2.0 % 0.0-2.0 N code = IG%) LYMPHOCYTE % (test code = LY%) 16.7 % 14.0-32.0 N MONOCYTE % (test code = MO%) 11.6 % 4.8-9.0 H EOSINOPHIL % (test code = EO%) 1.2 % 0.3-3.7 N BASOPHIL % (test code = BA%) 0.5 % 0.0-2.0 N NUCLEATED RBC % (test code = 0.0 % 0-0 N NRBC%) NEUTROPHIL # (test code = NT#) 6.83 x10 3/uL 2.0-7.6 N IMMATURE GRANULOCYTE # (test 0.20 x10 3/uL 0.00-0.03 H code = IG#) LYMPHOCYTE # (test code = LY#) 1.67 x10 3/uL 1.0-3.8 N MONOCYTE # (test code = MO#) 1.16 x10 3/uL 0.1-0.8 H EOSINOPHIL # (test code = EO#) 0.12 x10 3/uL 0.0-0.2 N BASOPHIL # (test code = BA#) 0.05 x10 3/uL 0.0-0.2 N NUCLEATED RBC # (test code = 0.00 x10 3/uL 0.0-0.1 N NRBC#) MANUAL DIFF REQUIRED (test code NO = MDIFF) SED RATE [id number] 19:19:00 Test Item Value Reference Range Interpretation Comments SED RATE WESTERGREN (test code = 69 mm/hr 0-15 H SEDW) COMPREHENSIVE METABOLIC [id number] 19:02:00 Test Item Value Reference Range Interpretation Comments SODIUM (test code = NA) 141 mEq/L 134-147 N POTASSIUM (test code = 4.8 mEq/L 3.4-5.0 N K) CHLORIDE (test code = 108 mEq/L 100-108 N CL) CARBON DIOXIDE (test 26 mEq/l 21-33 N code = CO2) ANION GAP (test code = 12 0-20 N GAP) GLUCOSE (test code = 119 mg/dL 70-110 H GLU) BLOOD UREA NITROGEN 24 mg/dL 7-18 H (test code = BUN) GLOMERULAR FILTRATION 80.2 70-80 H Units of measure = RATE (test code = GFR) ml/mi n/1.73 m2 CREATININE (test code = 0.9 mg/dL 0.6-1.3 N CREAT) TOTAL PROTEIN (test 6.1 g/dL 6.4-8.2 L code = PROT) ALBUMIN (test code = 3.10 g/dL 3.4-5.0 L ALB) CALCIUM (test code = 8.5 mg/dL 8.0-10.5 N CA) BILIRUBIN TOTAL (test 1.50 mg/dL 0.0-1.0 H code = BILT) SGOT/AST (test code = 41 IUnit/L 15-37 H AST) SGPT/ALT (test code = 32 IUnit/L 30-65 N ALT) ALKALINE PHOSPHATASE 87 IUnit/L 20-125 N TOTAL (test code = ALKP) CREATINE KINASE (CK)2021-07-08 19:02:00 Test Item Value Reference Range Interpretation Comments CREATINE KINASE (CK) (test code = 295 Units/L 35-232 H CK) TROP-I HIGH [id number] 19:02:00 Test Item Value Reference Range Interpretation Comments TROP-I HIGH 15 ng/L 0-54 N CAUTION: Units of the SENSITIVITY (test current te st methodology code = TROPIHS) (ng/L) diffe rfrom the prior test methodolog y (ng/mL) by a factor of 1000. 99th Percentile Upper Reference Limit (URL): Females: 34 ng/LMales: 54 n g/L In order to distinguish acute elevations of h igh sensitivitytrop onin from other clinical conditions, the FourthUnive rsal Definition of M yocardial Infarction stre ssesclinical assessment and the demonstration o f a rise and/orfall in s erial troponin result s above the URL. These resu lts were obtained using [employer] TnI Hreagent. Results from di fferent methodologies s hould not becompared to o ne another as quantitative results and URLs mayvary by method. C REACTIVE [id number] 18:56:00 Test Item Value Reference Range Interpretation Comments C REACTIVE PROTEIN (test code = 82.0 mg/L <10.0 H CRP) PROTHROMBIN [id number] 18:56:00 Test Item Value Reference Range Interpretation Comments PROTHROMBIN TIME 23.9 SECONDS 9.3-12.9 H PATIENT (test code = PTP) INTERNATIONAL NORMAL 2.1 0.8-1.2 H TARGET INR BY RATIO (test code = INDICATIO N Indication INR) INR1. Prophylax is of venous thrombos is 2.0 - 3.0 (orthoped ic surgery), Proph ylaxis of venous throm bosis (other than hig h-risk surgery), Treat ment of Deep Vein Thrombosis/Pulm onary Embolism, Preve ntion of systemic emb olism - Tissue heart va lves, Acute Myocardia l Infarction (to prevent systemic emboli sm), Valvular heart disease, Atrial Fibrillation, Bileaflet mecha nical valve in aortic position.2. Mec hanical prosthetic valv es (high risk), 2. 5 - 3.5 Presence of Lup us Anticoagulant o r Antiphospholipi d Antibodies, Pre vention of systemic emb olism - Acute Myocardia l Infarction (to prevent recurrent infar ct). THROMBOPLASTIN TIME [id number] 18:56:00 Test Item Value Reference Range Interpretation Comments THROMBOPLASTIN TIME 36.1 Seconds 25.0-39.5 N Therape utic Range: PARTIAL (test code = 50.4 - 88.3 Seconds PTT) Effective 07/16/2018 LACTIC [id number] 18:52:00 Test Item Value Reference Range Interpretation Comments LACTIC ACID (test code = LACT) 1.2 mmol/L 0.4-1.9 N - XR FOOT 3 + V [id number] 00:00:00 [facility] : 1935 Sex: M FAX: Mamadou Quevedo [phone] [place]: St: REG FAX: Haris Watkins [phone] --------- Name: KAYLYNN MISTRY [facility] [place] : 1935 Age/S: 85/M [address] [place] [address] Unit #: [id number] Loc: [facility] [id number] Phys: Haris Watkins Acct: [id number] Dis Date: Status: REG ER PHONE #: [phone] ExamDate: 07/08/20211919 FAX #: [phone] Reason: wounds and swelling EXAMS: CPT CODE: [id number] XRFOOT 3 + V LT [id number] PROCEDURE INFORMATION: Exam: XR Left Foot Exam date and time: 07/08/2021 7:05 PM Age: 85 years old Clinical indication: Cellulitis; Foot; Left; Additional info: Wounds and swelling TECHNIQUE: Imaging protocol: XR Left foot. Views: 3 or more views. COMPARISON: No relevant prior studies available. AP, lateral oblique views of the left foot demonstrate no evidence of acute fracture, dislocation or bone destruction. 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 A bone spur is identified at the calcaneal insertion of the plantar fascia. Soft tissue swelling of the forefoot is noted without soft tissue gas or radiopaque soft tissue foreign body. IMPRESSION: 1. No acute bony abnormalities of the left foot are detected. SL: 131 at 1944 Reported and signed by: Kaylynn Garay M.D. CC: Mamadou Leigh MD; Haris MORATAYA Technologist: RT Kate(Aleida) Trnscrd Date/Time/By: 07/08/2021 (1943) : By: Alexa Orig Print D/T: S: 07/08/2021 (1943) PAGE 1 Signed Report- XR CHEST 1 [id number] 00:00:[address] : 1935 Sex: M FAX: Abad Casas [phone] [place]: St: REG FAX: Mamadou Quevedo [phone] ----- Name: KAYLYNN MISTRY [facility] : 1935 Age/S: 85/M [address] [place] [address] Unit #: [id number] Loc: [place] [address] Phys: Abad Oakley MD Acct: [id number] Dis Date: Status: REG [facility] PHONE #: [phone] Exam Date: 06/29/2021 0632 FAX #: [phone] Reason: PRE-OP EXAMS: CPT CODE: [id number] XR CHEST 1 V 91644 PROCEDURE INFORMATION: Exam: XR Chest Exam date [...] and shoulders. IMPRESSION: No acute cardiopulmonary findings. Electronically Signedby Awais Paez on 06/29/2021 at 0735 Reported and signed by: Yair Paez M.D. CC: Abad Oakley MD; Mamadou Leigh MD Technologist: Gia Valdez RT(R) Trnscrd Date/Time/By: 06/29/2021 (2366) : By: TkTDO Orig Print D/T: S: 06/29/2021 (2992) PAGE 1 Signed ReportNovel Coronavirus 2019 [id number] 18:48:00 Test Item Value Reference Range Interpretation Comments Novel Coronavirus Negative Negative Positive r esults are 2019 Inhouse (test indicativ e of the presence code = COVNONPUI) ofSARS-CoV -2 RNA, clinical correlation wit h patient historyand othe r diagnostic info rmation is necessary to determinepatien t infection status. Positiv e results do not rule out bacterial infection or co -infection with other viru ses. Negative result s do not preclude SARS-C oV-2 infection andsh ould not be used as the hesham e basis for patient managementdecis ions. Negative result s must be combined with otherclinical observations, p atient history, and epidemiological information . Detection of SARS-CoV-2 RNA may be affe cted bysample collec tion methods, storag e conditions, and /or stageof infection. Toya l RNA mutations, vacc inations, antiviraltherap eutics, antibiotics, chemotherapeuti c orimmunosuppres harika drugs have not been e valuated for effectson d etection. Results are for the identification of SARS-CoV-2 RNA usingreal-time (RT) polymerase sondra n reaction (PCR) technolog yfor the qualitative det ection of nucleic acids f rom agaRMDI-HcE-5 v irus and diagnosis of SA RS-CoV-2 virusinfection. It is an Emergency Use Authorization ( EUA) testauthorized by the U.S. FDA. BASIC METABOLIC [id number] 09:49:00 Test Item Value Reference Range Interpretation [...] 8.8 mg/dL 8.0-10.5 N CA) CBC W/AUTO [id number] 09:34:00 Test Item Value Reference Range Interpretation [...] x10 3/uL 0.0-0.1 N NRBC#) CSF PROTEIN [id number] 07:22:00 Test Item Value Reference Range Interpretation Comments CSF PROTEIN 14-3-3. Likeliho od of prion (test code = disease: <0.2% SEE [id number]) SCANNED COPY [facility] MEDICAL RECORDS - MRI BRAIN W/O [id number] 00:00:00 [facility] DOB: 1935 Sex: M FAX: Ynes Baker MD [phone] [place]: St: [facility] FAX: Carol JamesbetitosukhiMamadou Aleida [phone] FAX: José Dill MD [phone] Name: KAYLYNN MISTRY [facility] : 1935 Age/S: 85/M [address] [place] [address] Bl Unit#: [id number] Loc: G.44[address] [place] [address] Phys: Ynes Baker MD Acct: [id number] Dis Date: Status: ADM IN PHONE #: [phone] Exam Date: 04/13/2021 1620 FAX #: [phone] Reason: CHANGE IS MENTAL STATUS Report Has Been Amended EXAMS: CPT CODE: [id number] MRI BRAIN W/O CONT 05075 Addendum - 04/26/2021 SIGNED 04/26/2021 ADDENDUM: [id number] MRI/MRIBRAINWO Addendum: To specify, questionable DWI hyperintense signal in the bilateral frontal lobes and left parietal lobe 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 Findings are most notable on DWI images 5-10 in the frontal lobes and images 7-8 in the left parietal lobe. at 1044 Reported and signed by: Saman Sultana M.D. Addendum -04/14/2021 SIGNED 04/14/2021 ADDENDUM: [id number] MRI/MRIBRAINWO Addendum: The examination was reviewed with particular focus on the cortex of the brain and there are patchy areas of hyperintensity in the frontal cortex bilaterally and also visible in the posterior parietal cortex on the left. 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 located in both frontal lobes and in [...] Signed Report (CONTINUED) FAX: Ynes Baker MD [phone] [place]: St: ADM FAX: Mamadou Quevedo [phone] FAX: José Dill MD [phone] Name: KAYLYNN MISTRY [facility] : 1935 Age/S: 85/M [address] [place] [address] Unit #: [id number] Loc: G.[address] [place] [address] Phys: Ynes Baker MD Acct: [id number] Dis Date: Status: ADM IN PHONE #: [phone] Exam Date: 04/13/2021 1620FAX #: [phone] Reason: CHANGE IS MENTAL STATUS Report Has Been Amended EXAMS: CPT CODE: [id number] MRI BRAIN W/O CONT 92304 (Continued) Imaging protocol: MR of the head without contrast. COMPARISON: CT HEAD/BRAIN W/O CONT 04/13/2021 10:06 AM FINDINGS: Brain: Examination of the brain shows symmetrical expansion of the ventricles and extracerebral spaces, consistent with the patient's age. There is diffuse hyperintensity throughout the white matter of both cerebral hemispheres which represents moderately advanced, chronic ischemic demyelination which is consistent since age. No other discrete areas of abnormal signal are seen within the brain and in particular, there is no abnormal signal on diffusion-weighted sequences to indicate any recent or acute [...] nasal cavity and nasopharynx are normal. Orbital cavity: The orbital contents are normal and the visible [...] Lim M.D. PAGE 2 Signed Report (CONTINUED) FAX: Ynes Baker MD [phone] [place]: St: [facility] FAX: Mamadou Quevedo [phone] FAX: José Dill MD [phone] Name: MISTRYKAYLYNN [facility] : 1935 Age/S: 85/M [address] [place] [address] Unit #: [id number] Loc: G.[address] [place] [address] Phys: Ynes Baker MD Acct: [id number] Dis Date: Status: ADM IN PHONE #: [phone] Exam Date: 04/13/2021 1620 FAX #: [phone] Reason:CHANGE IS MENTAL STATUS Report Has Been Amended EXAMS: CPT CODE: [id number] MRI BRAIN W/O [id number] (Continued) CC: Ynes Baker MD; Mamadou Leigh MD; José Jimenez MD Technologist: RT Nelsy(R)(CT) Trnscrd Date/Time/By: 04/13/2021 (1751) : By: [email or web address] Orig Print D/T: S: 04/13/2021 (1751) PAGE 3 Signed Report VITAMIN [id number] 13:10:00 Test Item Value Reference Range Interpretation Comments VITAMIN B12 (test code = VITB12) 336 pg/mL 193-986 N FOLIC [id number] 13:10:00 Test Item Value Reference Range Interpretation Comments FOLIC ACID (test code = FOL) 11.0 ng/mL 3.1-17.5 N T4 [id number] 13:10:00 Test Item Value Reference Range Interpretation Comments T4 FREE (test code = T4F) 1.0 ng/dL 0.77-1.61 N THYROID STIMULATING [id number] 13:10:00 Test Item Value Reference Range Interpretation Comments THYROID STIMULATING 2.00 0.42-5.47 N Results in HORMONE (test code = TSH) mi lli-International Units/mL VIT B1 WHOLE [id number] 13:10:00 Test Item Value Reference Range Interpretation Comments VIT B1 WHOLE BLOOD 179.7 nmol/L 66.5-200.0 Performed At: BN (test code = [facility] bnm8914 KFRE8RD) [place] [id number] benja Conteh MD Ph:[phone] METHYLMALONIC [id number] 13:12:00 Test Item Value Reference Range Interpretation Comments METHYLMALONIC ACID (test 276 nmol/L 0-378 Per formed At: BN code = METHM) [place] [id number] [facility], [place] [id number] ra Wero MEJIA Ph:[phone] BASIC METABOLIC [id number] 08:44:00 Test Item Value Reference Range Interpretation [...] code = 8.9 mg/dL 8.0-10.5 N CA) [id number] 08:44:00 Test Item Value Reference Range Interpretation Comments MAGNESIUM (test code = MAG) 1.80 mg/dL 1.80-2.40 N CBC W/AUTO [id number] 08:14:00 Test Item Value Reference Range Interpretation [...] (test code NO = MDIFF) CSF VDRL [id number] 17:09:00 Test Item Value Reference Range Interpretation Comments CSF VDRL QUAL Non Reactive See_Comment Performed At: [facility] (test code = [id number] [place] VDRLCSFQL) [facility], [place] [id number] ra Wero MEJIA Ph:[phone] [Automated mess age] The system which ge nerated this result tra nsmitted reference range : Non Auxier:<1:1. The r eference range was not u sed to interpret this result as normal/abnormal . 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 Prophylax is of venous thrombos is 2.0 - 3.0 (orthoped ic surgery), Proph ylaxis of venous throm bosis (other than hig h-risk surgery), Treat ment of Deep Vein Thrombosis/Pulm onary Embolism, Preve ntion of systemic emb olism - Tissue heart va lves, Acute Myocardia l Infarction (to prevent systemic emboli sm), Valvular heart disease, Atrial Fibrillation, Bileaflet mecha nical valve in aortic position.2. Mec hanical prosthetic valv es (high risk), 2. 5 - 3.5 Presence of Lup us Anticoagulant o r Antiphospholipi d Antibodies, Pre vention of systemic emb olism - Acute Myocardia l Infarction (to prevent recurrent infar ct). THROMBOPLASTIN TIME [id number] 06:44:00 Test Item Value Reference Range Interpretation Comments THROMBOPLASTIN TIME 40.9 Seconds 25.0-39.5 H Therape utic Range: PARTIAL (test code = 50.4 - 88.3 Seconds PTT) Effective 07/16/2018 CBC W/AUTO [id number] 06:31:00 Test Item Value Reference Range Interpretation [...] NO = MDIFF) COVID 19 Asymptomatic IH [id number] 16:03:00 Test Item Value Reference Range Interpretation [...] high or waivedcomplexit y tests. BASIC METABOLIC [id number] 08:24:00 Test Item Value Reference Range Interpretation [...] 8.8 mg/dL 8.0-10.5 N CA) CBC W/AUTO [id number] 07:00:00 Test Item Value Reference Range Interpretation [...] code NO = MDIFF) MISCELLANEOUS LAB SEND [id number] 11:22:00 Test Item Value Reference Range Interpretation Comments MISCELLANEOUS LAB SEND NO PATHOLOGY REVIEW OUT (test code = MISCLABSO) Test: 14-3-3 proteinOrdering physician contact information: Dr. Becerra [phone] CBC W/AUTO [id number] 09:40:00 Test Item Value Reference Range Interpretation [...] (test code NO = MDIFF) BASIC METABOLIC [id number] 09:37:00 Test Item Value Reference Range Interpretation [...] 9.2 mg/dL 8.0-10.5 N CA) CSF CELL CT/[id number] 15:26:00 Test Item Value Reference Range Interpretation [...] = 11 % 16-56 L MONOCSF) CSF [id number] 14:28:00 Test Item Value Reference Range Interpretation Comments CSF COLOR (test code = COLORLESS COLORLESS COLCSF) CSF TUBE # (test code = TUBE #2 - GLU/PROT TUBECSF) CSF GLUCOSE (test code = 60 MG/DL 40-80 N GLUCSF) CSF TOTAL PROTEIN (test 83.0 mg/dL 15-45 H code = PROTCSF) BASIC METABOLIC [id number] 11:33:00 Test Item Value Reference Range Interpretation [...] 8.8 mg/dL 8.0-10.5 N CA) CBC W/AUTO [id number] 11:24:00 Test Item Value Reference Range Interpretation [...] (test code NO = MDIFF) PATHOLOGY REVIEW [id number] 09:38:00 Test Item Value Reference Range Interpretation Comments NAME OF TEST (test TAU PROTEIN code = NAMEMISC) APPROVAL (test code NO = APPROVAL) PATH REVIEW COMMENT TEST CAN CELLED (test code = PATH AFTER CONS ULTING REVIEW COM) WITH PRITI COOPER NP SIGNATURE (test Josue Segovia, code = SIGNATURE) Awais MISCELLANEOUS LAB SEND [id number] 09:32:00 Test Item Value Reference Range Interpretation Comments MISCELLANEOUS LAB SEND PATHOLOGY REVIEW REQ OUT (test code = MISCLABSO) Test: CSF TAU proteinOrdering physician contact information: Dr. Mariam Mcdonald [phone] MISCELLANEOUS LAB SEND [id number] 07:51:00 Test Item Value Reference Range Interpretation Comments MISCELLANEOUS LAB SEND NO PATHOLOGY REVIEW OUT (test code = MISCLABSO) Test: RT-QuICOrdering physician contact information: Dr. Becerra [phone] CT HEAD/BRAIN W/O [id number] 00:00:00 [facility] : 1935 Sex: M Name: KAYLYNN MISTRY : 1935 Age/S: 85 / M [address] [place] [address] Blvd Unit #: [id number] Loc: [place] [address] Phys: Ynes Baker MD Acct: [id number] Dis Date: Status: ADM INPHONE #: [phone] Exam Date: 04/15/2021 1227 FAX #: [phone] Reason: FALL EXAMS: CPT CODE: [id number] CT HEAD/BRAIN W/O CONT 90322 PROCEDURE INFORMATION: Exam: CT Head Without Contrast Exam date and time: 04/15/2021 12:17 PM Age: 85 years old Clinical indication: Injury or trauma; Fall; Blunt trauma (contusions or hematomas) TECHNIQUE: Imaging protocol: Computed tomography [...] contrast 04/13/2021 FINDINGS: Brain: There are generalized involutional changes. There are extensive areas of diminished attenuation in the cerebral white matter bilateral. The cortical architecture is maintained. The midline structures and posterior fossa contents are unremarkable. There is no intra-axial or extra-axial hemorrhage, mass lesionor mass effect. There is a small indistinct focus of apparent increased attenuation overlying the left cerebral hemisphere which persist on all images and is consistent with artifact. Cerebral ventricles: Mild prominence of the lateral ventricles is stable and not out of proportion to prominence of the sulci. Paranasal sinuses: Visualized sinuses are unremarkable. No fluid levels. Mastoid air cells:Visualized mastoid air cells are well aerated. Vasculature: [...] PAGE 1 Signed Report (CONTINUED) Name: KAYLYNN MISTRY [facility] : 1935 Age/S: 85 / M [address] [place] [address] Unit #: [id number] Loc: [place] [address] Phys: Ynes Baker MD Acct: [id number] Dis Date: Status: ADM IN PHONE #: [phone] Exam Date: 04/15/20211226 FAX #: [phone] Reason: FALL EXAMS: CPT CODE: [id number] CT HEAD/BRAIN W/O CONT 67628 (Continued) CC: Ynes Baker MD; Mamadou Leigh MD; José Jimenez MD Technologist:Car Sanders, RT(R)(CT) CTDI: DLP: Trnscb Date/Time: 04/15/2021 (125) tKHALIDA Orig Print D/T: S: 04/15/2021 (316) PAGE 2 Signed Report- PUNCTURE LUMBAR [id number] 00:00:[address] : 1935 Sex: M FAX: Mamadou Quevedo [phone] [place]: St: ADM FAX: José Dill MD [phone] FAX: Priti Cooper [phone] Name: KAYLYNN MISTRY [facility] : 1935 Age/S: 85/M [address] [place] [address] Unit #: [id number] Loc: [address] [address] Phys: Priti Busby AUDIO ENGINEER Acct: [id number] Dis Date: Status: ADM IN PHONE #: [phone] Exam Date: 04/15/2021 1400 FAX #: [phone] Reason: Rapid Progressive Dementia EXAMS: CPT CODE: [id number] [place] [address] PROCEDURE INFORMATION: Exam: IR Lumbar Spinal Puncture With Fluoroscopic Or CT Guidance; Diagnostic or Therapeutic Exam date and time: 04/15/2021 1:50 PM Age: 85 years old Clinical indication: Rapid progressive dementia TECHNIQUE: Imaging protocol: Lumbar spinal puncture with fluoroscopic or CT guidance. Diagnostic or therapeutic. Fluoroscopy guidance was provided. COMPARISON: MRA NECK W/O CONT 04/13/2021 3:49 PM RADIATION DOSE METRICS: Fluoroscopy time (seconds): 0.5 MIN Number of fluoro spot images: 1 Reference air kerma (SHARAN): 10 mGy FINDINGS: Advanced practice providers: None. CONSENT AND SEDATION INFO: Consent: The risks , benefits and alternatives of the procedure were discussed. Informed consent was obtained. Time out: Timeout was performed prior to the procedure. Procedure summary: The patient was placed in the prone position. Posterior lower back was sterilely prepped and draped. 1% lidocaine was used for local anesthesia. 22- gauge spinal needle was advanced through the posterior [...] guidance. PAGE 1 Signed Report (CONTINUED) FAX: Aleida Quevedo [phone] [place]: St: [facility] FAX: José Dill MD [phone] FAX: Priti Cooper [phone] Name: KAYLYNN MISTRY [facility] : 1935 Age/S: 85/M [address] [place] [address] Unit #: [id number] Loc: [address] [address] Phys: Priti Busby AUDIO ENGINEER Acct: [id number] Dis Date: Status: ADM IN PHONE #: [phone] Exam Date: 04/15/2021 1400 FAX #: [phone] Reason: Rapid Progressive Dementia EXAMS: CPT CODE: [id number] [place] [address] (Continued) at 6147 Reported and signed by: Alexis Douglas D.O. CC:Mamadou Leigh MD; José Jimenez MD; Priti Cooper NP Technologist: Mery Lawrence RT(R) Trnscrd Date/Time/By: 04/15/2021 (9717) : By: [email or web address] Orig Print D/T: S: 04/15/2021 (6390) PAGE 2 Signed ReportCOVID 19 Asymptomatic IH [id number] 15:33:00 Test Item Value Reference Range Interpretation Comments COVID 19 Asymptomatic Negative Negative A nega tive result is IH AG (test code = presumpti ve and should COVNONPUIAG) be confirmedwit h an FDA authorized mole cular assay, if neces lora forpatient marsha barcenas.A positive result does not rule out co-inf [...] or waivedcomplexit y tests. MISCELLANEOUS LAB SEND [id number] 14:44:00 Test Item Value Reference Range Interpretation Comments MISCELLANEOUS LAB SEND NO PATHOLOGY REVIEW OUT (test code = MISCLABSO) Test: Enolase Neuron SpecificOrdering physician contact information: DR. Becerra [phone] PLASMA [id number] 11:02:00 Test Item Value Reference Range Interpretation Comments RAPID PLASMA REAGIN (test code = NONREACTIVE NONREACTIVE RPR) CBC W/AUTO [id number] 08:37:00 Test Item Value Reference Range Interpretation [...] (test code NO = MDIFF) BASIC METABOLIC [id number] 08:14:00 Test Item Value Reference Range Interpretation [...] 8.8 mg/dL 8.0-10.5 N CA) BASIC METABOLIC [id number] 10:33:00 Test Item Value Reference Range Interpretation [...] 9.0 mg/dL 8.0-10.5 N CA) THROMBOPLASTIN TIME [id number] 10:25:00 Test Item Value Reference Range Interpretation Comments THROMBOPLASTIN TIME 32.2 Seconds 25.0-39.5 N Therape utic Range: PARTIAL (test code = 50.4 - 88.3 Seconds PTT) Effective 07/16/2018 CBC W/O [id number] 10:17:00 Test Item Value Reference Range Interpretation [...] 11.1 fL 7.0-9.0 H = MPV) GLUCOSE [id number] 09:49:00 Test Item Value Reference Range Interpretation Comments GLUCOSE BEDSIDE (test 87 MG/DL 70-110 N Perfor med by certified code = GLUBED) 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 : 11/26/1936 Sex: M Name: KAYLYNN MISTRY [facility] : 11/26/1936 Age/S: 84 / M [address] [place] [address] Unit #: [id number] Loc: [place] [address] Phys: Abad Oakley MD Acct: [id number] Dis Date: Status: ADM IN PHONE #: [phone] Exam Date: 04/13/20211657 FAX #: [phone] Reason: Bilateral leg ischemia,left leg pain, fall Report Has Been Amended EXAMS: CPT CODE: [id number] DOP ART SGL LEVEL HILARIO 73282 Addendum - 04/13/2021 SIGNED 04/13/2021 ADDENDUM: [id number] US/DOPASGLB Critical/significant findings and need for immediate communication to the requesting physician or on-call physician were discussed with the patient's charge nurse at 5:19 PM RN EXAMINER on 04/13/2021. The findings were acknowledged and understood. at 1719 Reportedand signed by: Alexis Douglas D.O. Report PROCEDURE INFORMATION: Exam: US Duplex Lower Extremity Arteries Exam date and time: 04/13/2021 4:41 PM Age: 84 years old Clinical indication: Pain; Leg, upper and leg, lower; Left; Additional info: Bilateral leg ischemia, left leg pain, fall TECHNIQUE: Imaging protocol: Real-time ultrasound scan of the arteries of the bilateral lower extremities with 2-D boggs scale, color Doppler flow and spectral waveform analysis. Images documented and saved. COMPARISON: No relevant prior studies available. FINDINGS: Right common femoral artery: No occlusion or significant stenosis. Multiphasic waveform. Right superficial femoral artery: No occlusion or significant stenosis. Multiphasic waveform. Right popliteal artery: No occlusion or significant stenosis. Multiphasicwaveform. Right calf/foot arteries: Visualized posterior tibial and dorsalis pedis arteries show no o cclusion. Multiphasic waveforms. Left common femoral artery: No occlusion or significant stenosis. Multiphasic waveform. Left superficial femoral artery: No occlusion or significant stenosis. Multiphasic waveform. Left popliteal artery: No flow is seen in the left popliteal artery. There is monophasicflow in the left posterior tibial PAGE 1 Signed Report (CONTINUED) Name: KAYLYNN MISTRY [facility] : 11/26/1936 Age/S: 84 / M [address] [place] [address] Bl Unit #: [id number] Loc: [place] [address] Phys: Abad Oakley MD Acct: [id number] Dis Date: Status: ADM IN PHONE #: [phone] Exam Date: 04/13/2021 1658 FAX #: [phone] Reason: Bilateral leg ischemia, left leg pain, fall ReportHas Been Amended EXAMS: CPT CODE: [id number] DOP ART SGL LEVEL HILARIO 76945 (Continued) artery and dorsalis pedis artery. Right VIRGILIO measures 1.1 and left VIRGILIO measures 0.7. IMPRESSION: No flow is seen in the left popliteal artery. There is monophasic flow in the left posterior tibial artery and dorsalis pedis artery. at 1716 Reported and signed by: Alexis Douglas D.O. CC: Abad Oakley MD; Mamadou Leigh MD; José Jimenze MD Technologist: Raya Aguirre; Criselda Callejas RDMS(AB) Trnscb Date/Time: 04/13/2021 (1715) t.SDR.[email or web address] Orig Print D/T: S: 04/13/2021 (1715) Probe: PAGE 2 Signed Report- MRA NECK W/O [id number] 00:00:00[facility] : 11/26/1936 Sex: M FAX: Mamadou Quevedo [phone] [place]: St: [facility] FAX: José Dill MD [phone] FAX: Priti Cooper [phone] Name: KAYLYNN MISTRY [facility] [place] : 11/26/1936 Age/S: 84/M [address] [place] [address] Bl Unit #: [id number] Loc: [place] [address] Phys: Priti Busby AUDIO ENGINEER Acct: [id number] Dis Date: Status: ADM IN PHONE #: [phone] Exam Date: 04/13/2021 1620 FAX #: [phone] Reason: Afib/AMS EXAMS: CPT CODE: [id number] MRA NECK W/O CONT 47436 PROCEDURE INFORMATION: Exam: MRA Neck Without Contrast Exam date and time: 04/13/2021 3:49 PM Age: 84 years old Clinical indication: Other: Confusion; Additional info: Afib/ams TECHNIQUE: Imaging protocol: Magnetic resonance angiography of the neck without contrast. COMPARISON: US DUP EXTRACRANIAL HILARIO 04/13/2021 8:52 AM FINDINGS: Right common car otid artery: No stenosis. No dissection or occlusion. Right internal carotid artery: No stenosis of the extracranial segment. No dissection or occlusion. Right external carotid artery: No stenosis. No dissection or occlusion of the origin. Right vertebral artery: No stenosis. No dissection or occlusion. Left common carotid artery: No stenosis. No dissection or occlusion. Left internal carotid artery:No stenosis of the extracranial segment. No dissection [...] artery stenosis is based on NASCET criteria. Normal is no stenosis. Mild isless than 50% stenosis. Moderate is 50-69% stenosis. Severe is 70% to 99% stenosis. Total occlusion is no detectable patent lumen. at 3258 Reported and signed by: Vinay Lim M.D. PAGE 1 Signed Report (CONTINUED) FAX: Mamadou Pedraza [phone] [place]: St: ADM FAX: José Dill MD [phone] FAX: Priti Cooper [phone] Name: KAYLYNN MISTRY [facility] [place] : 11/26/1936 Age/S: 84/M [address] [place] [address] Unit #: [id number] Loc: [address] [address] Phys: Priti Busby AUDIO ENGINEER Acct: [id number] Dis Date: Status: ADM IN PHONE #: [phone] Exam Date: 04/13/20211619 FAX #: [phone] Reason: Afib/AMS EXAMS: CPT CODE: [id number] MRA NECK W/O CONT 31231 (Continued) CC: Mamadou Leigh MD; José Jimenez MD; Priti Cooper NP Technologist: RT Nelsy(Aleida)(CT) Trntnrd Date/Time/By: 04/13/2021(1745) : By: [email or web address] Orig Print D/T: S: 04/13/2021 (0493) PAGE 2 Signed Report- MRA HEAD W/O CONTRAST 2021-04-13 00:00:[address] : 11/26/1936 Sex: M FAX: Mamadou Quevedo [phone] [place]: St: [facility] FAX: Jsoé Dill MD [phone] FAX: Priti Cooper [phone] Name: KAYLYNN MISTRY [facility] : 11/26/1936 Age/S: 84/M [address] [place] [address] Unit #: [id number] Loc: [address] [address] Phys: Priti Busby AUDIO ENGINEER Acct: [id number] Dis Date: Status: ADM IN PHONE #: [phone] Exam Date: 04/13/2021 1620 FAX #: [phone] Reason: Afib/AMS EXAMS: CPT CODE: [id number] MRA HEAD W/O CONTRAST 38952 PROCEDURE INFORMATION: Exam: MRA Head Without Contrast; Arteriography Exam date and time: 04/13/2021 3:42 PM Age: 84 years old Clinical indication: Other: Confusion; Additional info: Afib/ams TECHNIQUE: Imaging protocol: Magnetic resonance angiography head without contrast. Exam focused on the arteries. COMPARISON: CT HEAD/BRAIN W/O CONT 04/13/2021 10:06 AM FINDINGS: ANTERIOR CIRCULATION: Right internal carotid artery: Intracranial segment ispatent with no significant stenosis. No aneurysm. Right middle cerebral artery: No occlusion or significant stenosis. No aneurysm. Right anterior cerebral artery: The anterior communicating artery is probably patent. Left internal carotid artery: Intracranial segment is patent with no significant stenosis. No aneurysm. Left middle cerebral artery: No occlusion or significant stenosis. No aneurysm. Left anterior cerebral artery: No occlusion or significant stenosis. No aneurysm. POSTERIOR CIRCULATION: Right vertebral artery: No occlusion or significant stenosis. No aneurysm. Left vertebral artery:No occlusion or significant stenosis. No aneurysm. 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 CC: Mamadou Leigh MD; José Jimenez MD; Priti Cooper NP Technologist: RT Nelsy(Aleida)(CT) Trnscrd Date/Time/By: 04/13/2021 (1819) : By: Billy Orig Print D/T: S: 04/13/2021 (1819) PAGE 2 Signed Report- CT HEAD/BRAIN W/O [id number] 00:00:[address] : 11/26/1936 Sex: M Name: KAYLYNN MISTRY [facility] : 11/26/1936 Age/S: 84 / M [address] [place] [address] Unit #: [id number] Loc: [place] [address] Phys: Priti Cooper AUDIO ENGINEER Acct: [id number] Dis Date: Status: ADMIN PHONE #: [phone] Exam Date: 04/13/2021 [facility] FAX #: [phone] Reason: CHANGE IN MENTAL STATUS EXAMS: CPT CODE: [id number] CT HEAD/BRAIN W/O CONT 20627 PROCEDURE INFORMATION: Exam: CT Head Without Contrast [...] chronic small vessel ischemic change. Marked atherosclerotic calcificationof the distal internal carotid and vertebral arteries. [...] of the brain may be performed for critical access hospital er assessment. at 1020 Reported and signed by: Hill Lovell M.D. CC: Mamadou Leigh MD; José Jimenez MD; Priti Cooper NP Technologist:Car Sanders, RT(R)(CT) CTDI: DLP: Trnscb Date/Time: 04/13/2021 (1020) [email or web address] Orig Print D/T: S: 04/13/2021 (102) PAGE 1 Signed Report- DUP EXTRACRANIAL HILARIO 2021-04-13 00:00:[address] : 11/26/1936 Sex: M Name: KAYLYNN MISTRY [facility] : 11/26/1936 Age/S: 84 / M [address] [place] [address] Unit #: [id number] Loc: [place] [address] Phys: José Jimenez MD Acct: [id number] Dis Date: Status: ADM IN PHONE #: [phone] Exam Date: 04/13/2021923 FAX #: [phone] Reason: r/o carotid stenosis EXAMS: CPT CODE: [id number] DUP EXTRACRANIAL HILARIO 54505 PROCEDURE INFORMATION: Exam: US Duplex Bilateral Extracranial Arteries, Carotid Arteries Exam date and time: 04/13/2021 8:52 AM Age: 84 years old Clinical indication: Altered mental status/memory loss; Confusion or disorientation; Additional info: R/O carotid stenosis TECHNIQUE: Imaging protocol: Real-time Duplex ultrasound scan of the bilateral carotid and vertebral arteries combining boggs scale, color Doppler and spectral waveform analysis. Bilateral exam. Exam focused on the carotid arteries. COMPARISON: CT HEAD/BRAIN W/O CONT 04/12/2021 8:43 PM FINDINGS: Right common carotid artery: Plaque formation. No occlusion or stenosis. Waveforms are normal. Right internal carotid artery: Plaque formation. No occlusion or stenosis. Waveforms are normal. Right ICA/CCA ratio: Within normal limits. Right external carotid artery: No stenosis in the origin. Right vertebral artery: Not seen secondary to patient positioning. Left common carotid artery: Plaque format ion. No occlusion or stenosis. Waveforms are normal. Left internal carotid artery: Plaque formation.No occlusion or stenosis. Waveforms are normal. Left ICA/CCA ratio: Within normal limits. Left external carotid artery: No stenosis in the origin. Left vertebral artery: Unremarkable. Antegrade flow. IMPRESSION: No carotid arterial stenosis. REFERENCES: SRU CRITERIA. The degree of internal carotid artery stenosis is based on criteria defined by the Society of Radiologists in Ultrasound (SRU). Normalis no stenosis. Mild is less than 50% stenosis. Moderate is 50-69% stenosis. Severe is greater than 69% stenosis to near occlusion. Near occlusion is a markedly narrowed lumen. Total occlusion is no detectable patent lumen. at 0949 Reported and signed by: Yair Paez M.D. PAGE 1 Signed Report (CONTINUED) Name: KAYLYNN MISTRY [facility] : 11/26/1936 Age/S: 84 / M [address] [place] [address] Blvd Unit #: [id number] Loc: [place] [address] Phys: José Jimenez MD Acct: [id number] Dis Date: Status: ADM IN PHONE #: [phone] Exam Date: 04/13/2021923 FAX #: [phone] Reason: r/o carotid stenosis EXAMS: CPT CODE: [id number] DUP EXTRACRANIAL HILARIO 56028 (Continued) CC: Mamadou Leigh MD; José Jimenez MD Technologist: Sofiya Callejas Trnscb Date/Time: 04/13/2021 (0949) TkTDO Orig Print D/T: S: 04/13/2021 (2715) Probe: PAGE 2 Signed ReportUA RFLX MICR CULT IF [id number] 21:42:00 Test Item Value Reference Range Interpretation [...] BLOOD DIPSTICK (test code = NEGATIVE NEGATIVE MARC) UA PH DIPSTICK (test code = 5.0 [...] srcSpecimen Description: CLEAN CATCHCOVID 19 Asymptomatic IH [id number] 20:36:00 Test Item Value Reference Range Interpretation [...] high or waivedcomplexit y tests. BASIC METABOLIC [id number] 20:18:00 Test Item Value Reference Range Interpretation [...] 9.5 mg/dL 8.0-10.5 N CA) HEPATIC FUNCTION [id number] 20:18:00 Test Item Value Reference Range Interpretation [...] code = 0.70 MG/DL BILIND) TROP-I HIGH [id number] 20:18:00 Test Item Value Reference Range Interpretation Comments TROP-I HIGH 40 ng/L 0-54 N CAUTION: Units of the SENSITIVITY (test current te st methodology code = TROPIHS) (ng/L) diffe rfrom the prior test methodolog y (ng/mL) by a factor of 1000. 99th Percentile Upper Reference Limit (URL): Females: 34 ng/LMales: 54 n g/L In order to distinguish acute elevations of h igh sensitivitytrop onin from other clinical conditions, the FourthUnive rsal Definition of M yocardial Infarction stre ssesclinical assessment and the demonstration o f a rise and/orfall in s erial troponin result s above the URL. These resu lts were obtained using [employer] IM TnI Hreagent. Results from di fferent methodologies s hould not becompared to o ne another as quantitative results and URLs mayvary by method. PROTHROMBIN [id number] 20:13:00 Test Item Value Reference Range Interpretation Comments PROTHROMBIN TIME 12.9 SECONDS 9.3-12.9 N PATIENT (test code = PTP) INTERNATIONAL NORMAL 1.2 0.8-1.2 N TARGET INR BY RATIO (test code = INDICATIO N Indication INR) INR1. Prophylax is of venous thrombos is 2.0 - 3.0 (orthoped ic surgery), Proph ylaxis of venous throm bosis (other than hig h-risk surgery), Treat ment of Deep Vein Thrombosis/Pulm onary Embolism, Preve ntion of systemic emb olism - Tissue heart va lves, Acute Myocardia l Infarction (to prevent systemic emboli sm), Valvular heart disease, Atrial Fibrillation, Bileaflet mecha nical valve in aortic position.2. Mec hanical prosthetic valv es (high risk), 2. 5 - 3.5 Presence of Lup us Anticoagulant o r Antiphospholipi d Antibodies, Pre vention of systemic emb olism - Acute Myocardia l Infarction (to prevent recurrent infar ct). THROMBOPLASTIN TIME [id number] 20:13:00 Test Item Value Reference Range Interpretation Comments THROMBOPLASTIN TIME 31.5 Seconds 25.0-39.5 N Therape utic Range: PARTIAL (test code = 50.4 - 88.3 Seconds PTT) Effective 07/16/2018 LACTIC [id number] 20:11:00 Test Item Value Reference Range Interpretation Comments LACTIC ACID (test code = LACT) 1.3 mmol/L 0.4-1.9 N CBC W/AUTO [id number] 19:57:00 Test Item Value Reference Range Interpretation [...] 3/uL 0.0-0.1 N NRBC#) - CT ANGIO [id number] 00:00:[address] [address] : 11/26/1936 Sex: M Name: KAYLYNN MISTRY [facility] : 11/26/1936 Age/S: 84 / M [address] [place] [address] Unit #: [id number] Loc: [place] [address] Phys: Nettie Mckeon Phan APRNNP Acct: [id number] Dis Date: Status: REG ER PHONE #: [phone] Exam Date: 04/12/20212041 FAX #: [phone] Reason: UNRESPONSIVE EPISODE YDAYS/P ANGIOGRAM EXAMS: CPT CODE: [id number] CT ANGIO CHEST 45913 PROCEDURE INFORMATION: Exam: CTA Chest With Contrast Exam date and time: 04/12/2021 8:43 PM Age: 84 years old Clinical indication: Other: Syncope; Additional info: Unresponsive episode yday S/P angiogram TECHNIQUE: Imaging protocol: Computed tomographic angiography of the chest with contrast. 3D rendering (Not supervised by radiologist): MIP and/or 3D reconstructed images were created by the technologist. Radiation optimization: All CT scans at this facility use at least one of these dose optimization techniques: automated exposure control; mA and/or kV adjustment per patient size (includes targeted exams where dose is matched to clinical indication); or iterative reconstruction. Contrast material: [id number]; Contrast volume: 100 ml; Contrast route: INTRAVENOUS (IV) COMPARISON: CR XR CHEST 1V 04/12/2021 6:00 PM FINDINGS: PULMONARY ARTERIES: The pulmonary arteries appear to enhance normally. No pulmonary artery filling defects are detected to suggest acute pulmonary embolism. MEDIASTINUM: Fusiform ectasia of the of the thoracic aorta ispresent with the ascending aorta having a diameter of 3.7 cm. There is no evidence of aortic dissection. Atherosclerotic calcification is present in the aorta, proximal great vessels and coronary arteries. There is no evidence of a mediastinal mass or enlarged mediastinal lymph nodes. The heart is enlarged. No significant pericardial fluid collections are noted. PLEURAL SPACES: No acute pleural spaceabnormalities are detected. LUNGS: The lungs demonstrate evidence of emphysema. Mild bronchial wall thickening is present, being most apparent in the lower lobes, with several endobronchial filling defe cts likely representing inflammatory debris. No consolidation concerning [...] PAGE 1 Signed Report (CONTINUED) Name: KAYLYNN MISTRY : 11/26/1936 Age/S: 84 / M [address] [place] [address] Unit #: [id number] Loc: [place] [address] Phys: Nettie Mckeon [facility] Acct: [id number] Dis Date: Status: REG ER PHONE #: [phone] Exam Date: 04/12/20212041 FAX #: [phone] Reason: UNRESPONSIVE EPISODE YDAY S/P ANGIOGRAM EXAMS: CPT CODE: [id number] CT ANGIO CHEST 29266 (Continued) SL:131 at 2116 Reported and signed by: Kaylynn Garay M.D. CC: Mamadou Leigh MD; Nettie Mckeon Technologist:Chandana Garsia, RT(R)(CT) CTDI: DLP: Trnscb Date/Time: 04/12/2021 (2115) Alexa Orig PrintD/T: S: 04/12/2021 (2115) PAGE 2 Signed Report- CT HEAD/BRAIN W/O [id number] 00:00:[address] [address] : 11/26/1936 Sex: M Name: KAYLYNN MISTRY [facility] : 11/26/1936 Age/S: 84 / M [address] [place] [address] Unit #: [id number] Loc: [place] [address] Phys: Nettie Mckeon Acct: [id number] Dis Date: Status: REG ER PHONE #: [phone] Exam Date: 04/12/20212038 FAX #: [phone] Reason: Altered Mental Status SINCE YESTERDAY EXAMS: CPT CODE: [id number] CT HEAD/BRAIN W/O CONT 88268 PROCEDURE INFORMATION: Exam: CT Head Without Contrast Exam date and time: 04/12/2021 8:43 [...] mild generalized brain parenchymal volume loss. There isno large arterial vessel territory acute cerebral cortical edema. There is no acute intracranial hemorrhage. There is no mass effect, midline shift or herniation detected. Cerebral ventricles: [...] secondary to chronic small vessel ischemic disease, howeverthey are age indeterminate without a comparison study and I [...] PAGE 1 Signed Report (CONTINUED) Name: KAYLYNN MISTRY : 11/26/1936 Age/S: 84 / M [address] [place] [address] Unit #: [id number] Loc: [place] [address] Phys: Nettie Mckeon APRNNP Acct: [id number] Dis Date: Status: REG ER PHONE #: [phone] Exam Date: 04/12/20212038 FAX #: [phone] Reason: Altered Mental Status SINCE YESTERDAY EXAMS: CPT CODE: [id number] CT HEAD/BRAIN W/O CONT 73466 (Continued) at 2111 Reported and signed by: Jb Sorto D.O. CC: Mamadou Leigh MD; Nettie Mckeon Technologist:Chandana Garsia, RT(R)(CT) CTDI: DLP: Trnscb Date/Time: 04/12/2021 (2111) [id number] Orig Print D/T: S: 04/12/2021 (2111) PAGE 2 Signed Report- XR CHEST 1 [id number] 00:00:[address] [address] : 11/26/1936 Sex: M FAX: Mamadou Quevedo [phone] [place]: St: REG FAX: Nettie Mckeon [phone] ------- Name: KAYLYNN MISTRY [facility] : 11/26/1936 Age/S: 84/M [address] [place] [address] Unit #: [id number] Loc: [place], [place] [address] Phys: Nettie Mckeon Acct: [id number] Dis Date: Status: REG ER PHONE #: [phone] Date: 04/12/2021 1808 FAX #: [phone] Reason: Altered Mental Status EXAMS: CPT CODE: [id number] XR CHEST 1 V 70252 PROCEDURE INFORMATION: Exam: XR Chest Exam date and time: 04/12/2021 6:00 PM Age: 84 years old Clinical indication: Other: AMS; Additional info: Altered mental status TECHNIQUE: Imaging protocol: XR of the chest. Views: 1 view. COMPARISON: No relevant prior available for comparis on. FINDINGS: Lungs: No lobar consolidation. Pleural spaces: No pleural effusion. No pneumothorax. Heart/Mediastinum: Cardiac silhouette is normal. Bones/joints: No acute osseous abnormality. Degenerative changes are present at the shoulders. IMPRESSION: No acute cardiopulmonary findings. at 1817 Reported and signed by: Yoon Wilkins M.D. CC: Mamadou Leigh MD; Nettie Mckeon Technologist: KAJAL Russell)Trnscrd Date/Time/By: 04/12/2021 (1816) : By: [email or web address] Orig Print D/T: S: 04/12/2021 (1816) PAGE 1Signed Report Notes Date/Time Note Provider Source 2021-09-05 17:57:00-00:00 [id number] [place] [address] PATIENT NAME: KAYLYNN MISTRY ADMIT DATE: 2 ACCOUNT NO: [id number] ROOM NO: AGE: 85 REPORT TYPE: eTRANSESOPHAGEAL ECHO REPORT SEX: M ADMITTING PHYSICIAN: ATTENDING PHYSICIAN:Antonina Day MD *[place] [address] Transesophageal Echocardiogram Patient: Kaylynn Mistry Study Date: 08/31/2021 BP: 169 / 86 Location: [facility] URN: [id number] : 1935 Age: 85 Height: 68 in / 172.7 cm Gender: M Weight: 169 .6 lb / 77.1 kg BMI/BSA: 25.8 kg/m 2 / 1.91 m 2 *Ordering Physician: * Antonina Day MD *Interpreting Physician: * Antonina Day MD *Panel Wirer: * Dian Garner Indications: POST WATCHMAN. Study data: Consent: The risks, benefits, and al ternatives to the procedure were explained to the patient and info rmed consent was obtained. Procedure: Initial setup: The patient was brought to the laboratory in the fasting state.Intravenous acce ss was obtained. Surface ECG leads and pulse oximetric signals were monit ored. Sedation. Moderate sedation was administered by cardiology staff. T ransesophageal echocardiography was performed. Topical anesthes ia was obtained using benzocaine spray. A transesophageal probe (SN: [id number]) was inserted by the attending slat basket maker without difficulty. L ocation: Procedure room. Patient status: Outpatient. Patient room n umber: [facility] 06. Study status: Routine. Study completion: The pat ient tolerated the procedure well. There were no complications. Findings PATIENT NAME: KAYLYNN MISTRY 3091 Left ventricle: The cavity size is normal. Systo lic function is normal. Right ventricle: The cavity size is normal. Syst olic function is normal. Left atrium: The atrium is dilated. Post Watchma n: There is no evidence of residual flow around the Watchman occluder de vice. There is no evidence of a thrombus in the atrial cavity or a ppendage. No spontaneous echo contrast is observed. Right atrium: The atrium is normal in size. Ther e is no evidence of a thrombus in the atrial cavity or appendage. Atrial septum: No defect or patent foramen ovale is identified. Doppler shows no idtjm-cp-cgot atrial level shun t. Aorta: Aortic root: The aortic root is normal in size. There is no atheroma. There is no evidence for a neurysm. There is no evidence for dissection. Aortic valve: The valve is trileaflet. Thickenin g, consistent with sclerosis. Cusp separation is normal. There is n o evidence of stenosis. There is trivial regurgitation. Mitral valve: The valve is structurally normal. There is no evidence of a vegetation. There is mild regurgit ation. Tricuspid valve: The valve is structurally charan l. There is no evidence of a vegetation. There is no regurgitat ion. Pulmonic valve: No thickening. Cusp separation i s normal. There is no evidence of a vegetation. There is no regurgi tation. Systemic veins: Superior vena cava: The vessel is normal in size . Conclusions Summary: 1. Left ventricle: The cavity size is normal. Sy stolic function is normal. 2. Left atrium: The atrium is dilated. Post Watc hman: There is no evidence of residual flow around the Watchman o ccluder device. There is no evidence of a thrombus in the atrial cavi ty. No spontaneous echo contrast is observed. 3. Right atrium: There is no evidence of a throm bus in the atrial cavity or appendage. 4. Atrial septum: No defect or patent foramen ov zain is identified. Doppler shows no ycxgn-ke-zcgq atrial level estefany nt. 5. Aortic valve: Thickening, consistent with scl erosis. 6. Mitral valve: There is no evidence of a veget ation. 7. Tricuspid valve: There is no evidence of a ve getation. 8. Pulmonic valve: There is no evidence of a veg etation. Prepared and electronically signed by Antonina Day MD 09/05/2021 17:57 PATIENT NAME: KAYLYNN MISTRY [id number] Electronically Signed by Antonina Day MD on 0 09/05/21 at 1757 PATIENT NAME: KAYLYNN MISTRY 3091 2021-09-02 13:57:00-00:00 [id number] [place] [address] PATIENT NAME: KAYLYNN MISTRY ADMIT DATE: 2 ACCOUNT NO: [id number] ROOM NO: G.3344 AGE: 85 REPORT TYPE: DISCHARGE SUMMARY SEX: M ADMITTING PHYSICIAN:Santiago Garcia MD ATTENDING PHYSICIAN:Santiago Garcia MD ADMISSION DATE: 07/08/2021 DISCHARGE DATE: 07/22/2021 DIAGNOSES: Peripheral vascular disease, syncope, atrial fibrillation, foot wound. CONSULTANTS: Dr. Ambrosio, Dr. Day, Dr Thais Oakley, Dr. Abbott, Dr. Ortiz, Dr. Jerez. PROCEDURES: Watchman device placement. HOSPITAL COURSE: An 85-year-old male with past m edical history of DJD, status post recent intervention, BPH, hypertens ion, atrial fibrillation, alcohol use, chronic pain, left lower ext remity stent placement, who presented with leg pain. The patient was admitted and evaluated by his v ascular surgeon. Doppler ultrasound revealed no new stenosis. He was agit ated and confused. This improved as his lower extremity pain improved. H e had some drop in his hemoglobin and was evaluated by gastroenterologi st. He underwent EGD and colonoscopy. He was resumed on antiplatelet/anticoagulant therapy and underwent Watchman placement. He did well afterwards and w as then stable for discharge. CONDITION ON DISCHARGE: Stable. DIET AND ACTIVITY: As tolerated. MEDICATIONS: Per reconciliation form. FOLLOWUP: Follow up with PCP and slat basket maker. DISCHARGE TIME: 35 minutes. The patient was seen and exa mined on 07/22/2021. Please see corresponding note. Dictated By: Santiago Garcia MD WT: DS:ALEIDA/RITU/LIZBETH Conf#: [id number]/DID#: [id number] Authenticated by Santiago Garcia MD On 09/08/2021 12:53:06 PM PATIENT NAME: KAYLYNN MISTRY 0883 Electronically Signed by Santiago Garcia MD on 0 09/08/21 at 1253 PATIENT NAME: KAYLYNN MISTRY 0883 2021-08-01 00:40:00-00:00 [id number] [place] [address] PATIENT NAME: KAYLYNN MISTRY ADMIT DATE: 2 ACCOUNT NO: [id number] ROOM NO: G.3344 AGE: 85 REPORT TYPE: 360 - QUERY RESPONSE DOCUMENT SEX: M ADMITTING PHYSICIAN:Santiago Garcia MD ATTENDING PHYSICIAN:Santiago Garcia MD Provider Query QUERY TEXT: Condition General 360MD Query related questions should be directed to: [phone]ARCIA, Please clarity the cause of LLE pain and swellin g after study (due to PVD, due to chronic venous hypert ension, due to ulcers, postoperative pain, nonhealing surgic al wound, due to trauma, injury to foot, unspecified, oth er more appropriate diagnosis) The patient's Clinical Indicators include: LLE pain, swelling. see admit order Left foot wound and LLE pain and swelling. see h and p PVD, foot wound. see h and p Patient with re-perfusion edema of LLL worsened by chronic venous hypertension. see vascular surgery consu lt Left leg swelling s/p procedure. presents with s welling and tenderness to his left lower leg with eccymosis and purple appearance and increased warmth with thin shiny skin. His left foot has chronic ulcers. see vascular surg marleny consult injury left foot. see podiatry PN 07/17 Options provided: -- Respond - Create new note now -- Dismiss - Not applicable / Not valid -- Dismiss - Clinically unable to determine / Un known -- Assign to another provider QUERY RESPONSE: Provider dismissed this query because it was not applicable to the patient or not a valid query. Please see your query: "Patient with re-perfusio n edema of LLL worsened by chronic venous hypertension." Query created by: Romana Lovell on 07/26/2021 10: 09 AM QUERY TEXT: Condition General 360MD Query related questions should be directed to: [phone]ARCIA, Please clarify the cause of blood in stool after study (due to reflux esophagitis bleed, due to chronic geetha ritis bleed, due to gastric ulcer bleed, due to diver ticulosis with bleed, due to internal/external hemorrhoid s, unspecified, other more appropriate diagnosis) The patient's Clinical Indicators include: Blood in stool. see GE Consult EGD 07/15: reflux esophagitis, chronic gastritis localized moderate inflammation characterized by shallow ulcerations was found in the stomach colonoscopy 07/15: diverticula in the sigmoid col on and descending colon, internal and external hemorrh oids Options provided: -- Respond - Create new note now -- Dismiss - Not applicable / Not valid -- Dismiss - Clinically unable to determine / Un known -- Assign to another provider QUERY RESPONSE: Provider was clinically unable to determine a re sponse for this query Query created by: Romana Lovell on 07/26/2021 10: 20 AM Electronically Signed by Santiago Garcia MD on 0 08/01/21 at 0040 PATIENT NAME: KAYLYNN MISTRY 0883 2021-07-22 20:00:00-00:00 [facility] Progress Note REPORT#:[id number] REPORT STATUS: Signed DATE:07/22/21 TIME: 1999 PATIENT: KAYLYNN MISTRY UNIT #: [id number] ROOM/BED: [place] [address] : [birth year] AGE: 85 SEX: M ATTEND: Vinnie Garcia MD ADM AUTHOR: Santiago Garcia MD * ALL edits or amendments must be made on the [employer]/computer document * Subjective Chief complaint: Pt seen and exam'd. Events noted. Follow ing up leg pain, confusion. Pt feeling well, asking about going home. Review of Systems All systems rev neg: except as marked Objective General VS/I O: Vital Signs: Date Time Temp Pulse Resp B/P B/P Pulse O2 O2 F low FiO2 Mean Ox Delivery Rate 07/22 1247 36.9 81 16 128/66 0.0 95 07/22 0845 36.6 71 14 128/82 97.4 98 07/22 0440 36.5 69 18 142/67 0.0 99 07/22 0300 60 51 139/74 100 98 07/22 0200 64 37 123/76 94 97 07/22 0100 55 26 112/76 89 99 07/22 0043 60 32 128/70 95 99 07/21 2341 71 38 91/64 73 96 07/21 2330 36.5 69 18 93/56 0.0 96 07/21 2324 65 47 93/56 68 96 07/21 2300 61 45 96 07/21 2200 72 69 96 07/21 2100 68 43 07/21 2008 36.6 71 18 112/80 0.0 100 Room air 24 hour I O ending at 0700: 07/22 0700 07/21 1900 Intake Total Output Total Balance Weight Measurement Method PATIENT WEIGHT: Weight (lb): 184 Weight (oz): 15.49 Weight (kg): 83.461 Medications: Active Meds + DC'd Last 24 Hrs Apixaban (ELIQUIS 2.5MG TABLET) 2.5 MG BID PO (D CDr) Polyethylene Glycol (MIRALAX) 17 GM DAILY PRN NM N PO (DCD) Aspirin (ASPIRIN) 81 MG DAILY PO (DCD) Pantoprazole (PROTONIX) 40 MG BID AC PO (DCD) Trazodone HCl (DESYREL) 50 MG BEDTIME PO (DCD) Nitroglycerin (NITRO-BID) 0.5 INCH DAILY TRANSDE RM (DCD) Finasteride (PROSCAR) 5 MG DAILY PO (DCD) Tamsulosin HCl (Flomax 0.4 mg) 0.4 MG BID PO (DC D) Docusate Sodium (COLACE) 100 MG BID PO (DCD) Lactulose (LACTULOSE) 20 GM BID PRN PRN PO (DCD) Metoprolol Tartrate (LOPRESSOR) 25 MG BEDTIME PO (DCD) Cyanocobalamin (Vitamin B-12 500 mcg tab) 500 MC G DAILY PO (DCD) Folic Acid (FOLIC ACID) 1 MG DAILY PO (DCD) Multivitamins (TAB-A-FINESSE) 1 TAB DAILY PO (DCD) Thiamine HCl (THIAMINE HCL) 100 MG DAILY PO (DCD ) Physical Exam General appearance: alert, awake, oriented, no a cute distress, pleasant, conversational, mental status normal, no respira tory distress Head/Eyes: atraumatic, EOMI, normocephalic, PERR L ENT: moist mucosal membranes Neck: full range of motion, non-tender Cardiovascular: normal heart sounds, regular rat e rhythm Respiratory: aerating well, clear to auscultatio n Abdomen: non-tender, normal bowel sounds, soft, no distention Genitourinary: no bladder distention Extremities: no clubbing, no cyanosis, no edema Skin: no rash Ulcer: Type/cause: arterial Duration: chronic Location: foot Laterality: left Stage: 3 Diagnosis, Assessment Plan Free Text DxA P Notes Free text DxA P notes: 1. Left lower extremity swelling. 2. Peripheral vascular disease. 3. Atrial fibrillation. 4. Foot wounds. 5. Questionable history of syncope. 6. Alcohol use. 7. Benign prostatic hypertrophy. 8. Hypertension. 9. Likely dementia. Improving mentation, continue to monitor. Pain/ discomfort related to reperfusion. Empiric abx. Swelling improving. Continue med tx. Monitor BP/ HR. Foot wound care. Appreciate Psych, Vasc, Pod input. Start PT/OT. CM to assist with dc planning. Urinary symptoms possible related to BPH; Add Av odart and increase Flomax. d/w dtr, all questions answered. 07/13/2021 Patient with left leg sajnayi ng, peripheral vascular disease, A. fib, foot wounds , BPH, hypertension Mental status much better today He states he feels depressed and misses his who 12 years ago Psych has been consulted PT/OT on board Vitals reviewed acceptable Labs reviewed acceptable Encouraged PT/OT PMNR consulted as patient st ates that he lives at home and wants to return back home when better 07/14/21 doing ok vitals reviewed-some hypotension today stop losartan and amlodipine Labs reviewed-Hb dropped stool OB requested and reported positive GI consulted hold xarelto and asa and plavix cardio consulted for further recommendations patient has 2 daughters, both son in law at bedside today and patient in their presence okaying rehab [facility] consulted PMNR help appreciated CM to help with rehab arrangement, preferable pr ivate bed/not a shared room repeat labs in am 07/15/21 doing ok vitals reviewed-BP low labs reviewed-Hb lower than yesterday holding xarelto and ASA and plavix cardio has evaluated the patient GI help appreciated EGD/Colonoscopy in plan Iron studies requested will give one unit PRBC today as anemic and hypo tensive PMNR following, will dc to rehab once medically cleared 07/16/2021 Patient is doing okay Vitals reviewed blood pressure still low Labs reviewed hemoglobin better after transfusio n Still aspirin Plavix and Xarelto is on hold GI help appreciated S/p EGD and colonoscopy Found to have gastritis esophagitis and some div erticulosis but no bleeding Will wait for GI clearance before starting antic oagulation and antiplatelets Waiting on cardio recommendations which ones to start Discharge to inpatient rehab once medically ceci red 07/17/21 doing ok wants to go home nurse present in room during visit cardio has discussed with daughter, needs LAP off antiplatelets for now for dropping Hb Hb better now will get GI opinion about restarting antiplatele ts then he needs rehab, patient agreed infront of f amily but not wanting it now will discuss again once medically ready 07/18/21 doing ok sitting up in chair better mood today and understanding his illnesse s vitals reviewed-BP lowinsh Labs-no new today Hb was 10 yesterday antiplatlets and anticoag still on hold cardio waiting on GI to ok to restart d/w GI going for LAP occlusion on as cardio note, not scheduled on chart yet am labs requested 07/19/21 doing ok vitals reviewed-acceptable Labs reviewed-acceptable restarted anticoag and antiplt eliquis and ASA HB holding ok for now cardio EP doing wathcman tomorrow COVID tested-negative am labs requested 07/20/21 Had Watchman placement. Continue postop care. PT eval. Hbg holding; watch for s/sx bleeding 07/21/21 Had Watchman. Continue post op care. Diet and activity as tolerated. Hgb holding, watch for any bleeding. If doing well then maybe home soon. 07/22/21 Doing well after Watchman. No s/sx bleeding. Mentating better. Leg pain better. Plan dc home with followup. Electronically Signed by Santiago Garcia MD on at 2003 RPT #:[id number] END OF REPORT 2021-07-22 17:55:00-00:00 [facility] Podiatry Progress Note REPORT#:[id number] REPORT STATUS: Signed DATE:07/22/21 TIME: 1754 PATIENT: KAYLYNN MISTRY UNIT #: [id number] ROOM/BED: [place] [address] : 35 AGE: 85 SEX: M ATTEND: Vinnie Garcia MD ADM AUTHOR: Karsten Martines DPM * ALL edits or amendments must be made on the [employer]/computer document * General VS/I O: Last Documented: Result Date Time Pulse Ox 95 07/22 1247 B/P 128/66 07/22 1247 B/P Mean 0.0 07/22 1247 Temp 36.9 07/22 1247 Pulse 81 07/22 1247 Resp 07/22 1247 O2 Delivery Room air 07/22 2007 O2 Flow Rate 0 07/15 1525 24 hour I O ending at 0700: 07/22 0700 07/21 1900 Intake Total Output Total Balance Weight Measurement Method PATIENT WEIGHT: Weight (lb): 184 Weight (oz): 15.49 Weight (kg): 83.461 Subjective Chief complaint: ulceration left Objective General VS: Last Documented: Result Date Time Pulse Ox 95 07/22 1247 B/P 128/66 07/22 1247 B/P Mean 0.0 07/22 1247 Temp 36.9 07/22 1247 Pulse 81 07/22 1247 Resp 07/22 1247 O2 Delivery Room air 07/22 2007 O2 Flow Rate 0 07/15 1525 PATIENT WEIGHT: Weight (lb): 184 Weight (oz): 15.49 Weight (kg): 83.461 Medications: Active Meds + DC'd Last 24 Hrs Apixaban (ELIQUIS 2.5MG TABLET) 2.5 MG BID PO (D CDr) Polyethylene Glycol (MIRALAX) 17 GM DAILY PRN NM N PO (DCD) Aspirin (ASPIRIN) 81 MG DAILY PO (DCD) Pantoprazole (PROTONIX) 40 MG BID AC PO (DCD) Trazodone HCl (DESYREL) 50 MG BEDTIME PO (DCD) Nitroglycerin (NITRO-BID) 0.5 INCH DAILY TRANSDE RM (DCD) Finasteride (PROSCAR) 5 MG DAILY PO (DCD) Tamsulosin HCl (Flomax 0.4 mg) 0.4 MG BID PO (DC D) Docusate Sodium (COLACE) 100 MG BID PO (DCD) Lactulose (LACTULOSE) 20 GM BID PRN PRN PO (DCD) Metoprolol Tartrate (LOPRESSOR) 25 MG BEDTIME PO (DCD) Cyanocobalamin (Vitamin B-12 500 mcg tab) 500 MC G DAILY PO (DCD) Folic Acid (FOLIC ACID) 1 MG DAILY PO (DCD) Multivitamins (TAB-A-FINESSE) 1 TAB DAILY PO (DCD) Thiamine HCl (THIAMINE HCL) 100 MG DAILY PO (DCD ) I O: 24 hour I O ending at 0700: 07/22 0700 07/21 1900 Intake Total Output Total Balance Weight Measurement Method Nutrition assessment: The data set between the solid lines has been im ported from the dietitian's assessment. Any exceptions have been noted under Provider comments. BMI Calculated: 27.2 Nutrition related diagnosis: Nutrition diagnosis details: Nutrition problem: Nutrition etiology: Nutrition signs and symptoms: Nutrition prescription: Dietitian name: Assessment completed: Provider comments on imported dietitian assessme nt: Physical Exam General appearance: awake LE vascular pulse assess: 1+ R posterior tibialis, 1+ L posterior tibialis , 1+ R dorsalis pedis, 1+ L dorsalis pedis Capillary refill: Capillary refill (in seconds): < 3 seconds Right foot, < 3 seconds Left foot Reflexes: Achilles: 2+ Foot: vascular deficit Musculoskeletal: Musculoskeletal: decreased ROM Neuro/HAND COLLATOR: oriented X 3, no motor deficits Skin: ecchymosis (ecchymosis of left foot), dry Ulcer: Location: foot Type: arterial Appearance: necrotic tissue, Ulcerations to the dorsal 4th toe and plantar hallux have dry stable escha r no localized skin or soft tissue infection noted. Drainage: without odor Results Results: labs reviewed Diagnosis, Assessment Plan Free Text A P: PAD b/l LE s/p recent revascularization Ulcerations toes 1 and 4 left foot with dry, sta ble eschar Localized edema b/l LE Injury left foot BETADIEN WTD DAILY LEFT FOOT WBAT VASCULAR EVAL PAIN CONTROL PT/OT WILL FOLLOW Electronically Signed by Karsten Martines DPM on 06/21 at 0949 RPT #:[id number] END OF REPORT 2021-07-22 15:22:00-00:00 [facility] Cardiology Progress Note REPORT#:[id number] REPORT STATUS: Signed DATE:07/22/21 TIME: 152 PATIENT: KAYLYNN MISTRY UNIT #: [id number] ROOM/BED: [place] [address] : 35 AGE: 85 SEX: M ATTEND: Vinnie Garcia MD ADM AUTHOR: Kayt Jack RESEARCH GEOLOGIST * ALL edits or amendments must be made on the el [employer]/computer document * Subjective Chief complaint: doing well, no complaints Objective General VS/I O: 24 hour I O ending at 0700: 07/22 0700 07/21 1900 Intake Total Output Total Balance Weight Measurement Method Vital Signs: Date Time Temp Pulse Resp B/P B/P Pulse O2 O2 F low FiO2 Mean Ox Delivery Rate 07/22 1247 36.9 81 16 128/66 0.0 95 07/22 0845 36.6 71 14 128/82 97.4 98 07/22 0440 36.5 69 18 142/67 0.0 99 07/22 0300 60 51 139/74 100 98 07/22 0200 64 37 123/76 94 97 07/22 0100 55 26 112/76 89 99 07/22 0043 60 32 128/70 95 99 07/21 2341 71 38 91/64 73 96 07/21 2330 36.5 69 18 93/56 0.0 96 07/21 2324 65 47 93/56 68 96 07/21 2300 61 45 96 07/21 2200 72 69 96 07/21 2100 68 43 07/21 2008 36.6 71 18 112/80 0.0 100 Room air 07/21 1733 36.6 70 20 102/65 0.0 94 Room air PATIENT WEIGHT: Weight (lb): 184 Weight (oz): 15.49 Weight (kg): 83.461 Medications: Active Meds + DC'd Last 24 Hrs Apixaban (ELIQUIS 2.5MG TABLET) 2.5 MG BID PO (r ) Polyethylene Glycol (MIRALAX) 17 GM DAILY PRN NM N PO Aspirin (ASPIRIN) 81 MG DAILY PO Pantoprazole (PROTONIX) 40 MG BID AC PO Trazodone HCl (DESYREL) 50 MG BEDTIME PO Nitroglycerin (NITRO-BID) 0.5 INCH DAILY TRANSDE RM Finasteride (PROSCAR) 5 MG DAILY PO Tamsulosin HCl (Flomax 0.4 mg) 0.4 MG BID PO Docusate Sodium (COLACE) 100 MG BID PO Lactulose (LACTULOSE) 20 GM BID PRN PRN PO Metoprolol Tartrate (LOPRESSOR) 25 MG BEDTIME PO Cyanocobalamin (Vitamin B-12 500 mcg tab) 500 MC G DAILY PO Folic Acid (FOLIC ACID) 1 MG DAILY PO Multivitamins (TAB-A-FINESSE) 1 TAB DAILY PO Thiamine HCl (THIAMINE HCL) 100 MG DAILY PO Physical Exam General appearance: alert, awake, no acute distr ess Head/Eyes: atraumatic, clear cornea Neck: no JVD Cardiovascular: CV assessment: irregularly irregular Respiratory: clear to auscultation, no distress Abdomen: soft, non-tender, normal bowel sounds, no distention Genitourinary: no flank pain, no medina Lower extremity: LE assessment: no edema Musculoskeletal: normal inspection Neuro/HAND COLLATOR: alert, normal speech Skin: poor skin turgor Ulcer: Type/cause: arterial Duration: chronic Location: foot Laterality: left Stage: 3 Psychiatry: normal affect, normal mood Results Results: no new labs, vital signs reviewed, yohannes l signs stable Diagnosis, Assessment Plan Plan discussed with: patient, daughter Free Text DxA P Notes Free Text DxA P Notes: 85 YO male with PMHx of HTN, PAF on chronic anticoagulation, and PAD with prior vascular interventions who is admitted w ith leg pain and swelling. Found to be anemic with positive for occult blood. Cardiolog y is consulted to evaluate if anticogulation can be discontinued given anemia and possible GI bleed. 1. Chronic atrial fibrillation - rate controlled s/p Watchman procedure refusing telemetry continue BB as long as BP stable [id number] score 5 HAS-BLED score 4 Cleared by GI to start AC Eliquis 2.5 mg BID, ASA 81 mg daily RANDOLPH in 6 weeks to confirm complete occlusion of LIZETTE, then will DC Eliquis 2. PAD with prior vascular interventions/foot ul cers Vascular surgery and podiatry onboard Discussed with Dr. Oakley - he is ok for Eliquis + baby ASA without Plavix 3. Hypertension BP stable continue metoprolol 4. 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 Colonoscopy showed nonbleeding external and internal hemorrhoids and diverticulosis in the sigmoid colon and descending colon CV status stable Okay to DC from cardiology Outpatient follow-up with Dr. Davies in 1-2 week s NOK: daughter Judie ([phone]) at 1528 RPT #:[id number] END OF REPORT 2021-07-22 15:22:00-00:00 [facility] Progress Note REPORT#:[id number] REPORT STATUS: Signed DATE:07/22/21 TIME: 1522 PATIENT: KAYLYNN MISTRY UNIT #: [id number] ROOM/BED: 3344-1 : 35 AGE: 85 SEX: M ATTEND: Vinnie Garcia MD ADM AUTHOR: Katy Jack RESEARCH GEOLOGIST * ALL edits or amendments must be made on the [employer] document * Subjective Chief complaint: doing well, no complaints Objective General VS/I O: 24 hour I O ending at 0700: 07/22 0700 07/21 1900 Intake Total Output Total Balance Weight Measurement Method Vital Signs: Date Time Temp Pulse Resp B/P B/P Pulse O2 O2 Flow FiO2 Mean Ox Delivery Rate 07/22 1247 36.9 81 16 128/66 0.0 95 07/22 0845 36.6 71 14 128/82 97.4 98 07/22 0440 36.5 69 18 142/67 0.0 99 07/22 0300 60 51 139/74 100 98 07/22 0200 64 37 123/76 94 97 07/22 0100 55 26 112/76 89 99 07/22 0043 60 32 128/70 95 99 07/21 2341 71 38 91/64 73 96 07/21 2330 36.5 69 18 93/56 0.0 96 07/21 2324 65 47 93/56 68 96 07/21 2300 61 45 96 07/21 2200 72 69 96 07/21 2100 68 43 07/22 2007 36.6 71 18 112/80 0.0 100 Room air 07/21 1733 36.6 70 20 102/65 0.0 94 Room air PATIENT WEIGHT: Weight (lb): 184 Weight (oz): 15.49 Weight (kg): 83.461 Medications: Active Meds + DC'd Last 24 Hrs Apixaban (ELIQUIS 2.5MG TABLET) 2.5 MG BID PO (r ) Polyethylene Glycol (MIRALAX) 17 GM DAILY PRN NM N PO Aspirin (ASPIRIN) 81 MG DAILY PO Pantoprazole (PROTONIX) 40 MG BID AC PO Trazodone HCl (DESYREL) 50 MG BEDTIME PO Nitroglycerin (NITRO-BID) 0.5 INCH DAILY TRANSDE RM Finasteride (PROSCAR) 5 MG DAILY PO Tamsulosin HCl (Flomax 0.4 mg) 0.4 MG BID PO Docusate Sodium (COLACE) 100 MG BID PO Lactulose (LACTULOSE) 20 GM BID PRN PRN PO Metoprolol Tartrate (LOPRESSOR) 25 MG BEDTIME PO Cyanocobalamin (Vitamin B-12 500 mcg tab) 500 MC G DAILY PO Folic Acid (FOLIC ACID) 1 MG DAILY PO Multivitamins (TAB-A-FINESSE) 1 TAB DAILY PO Thiamine HCl (THIAMINE HCL) 100 MG DAILY PO Physical Exam General appearance: alert, awake, no acute distr ess Head/Eyes: atraumatic, clear cornea Neck: no JVD Cardiovascular: CV assessment: irregularly irregular Respiratory: clear to auscultation, no distress Abdomen: soft, non-tender, normal bowel sounds, no distention Genitourinary: no flank pain, no medina Lower extremity: LE assessment: no edema Musculoskeletal: normal inspection Neuro/HAND COLLATOR: alert, normal speech Skin: poor skin turgor Ulcer: Type/cause: arterial Duration: chronic Location: foot Laterality: left Stage: 3 Psychiatry: normal affect, normal mood Results Results: no new labs, vital signs reviewed, yohannes l signs stable Diagnosis, Assessment Plan Plan discussed with: patient, daughter Free Text DxA P Notes Free Text DxA P Notes: 85 YO male with PMHx of HTN, PAF on chronic anticoagulation, and PAD with prior vascular interventions who is admitted w ith leg pain and swelling. Found to be anemic with positive for occult blood. Cardiolog y is consulted to evaluate if anticogulation can be discontinued given anemia and possible GI bleed. 1. Chronic atrial fibrillation - rate controlled s/p Watchman procedure refusing telemetry continue BB as long as BP stable [id number] score 5 HAS-BLED score 4 Cleared by GI to start AC Eliquis 2.5 mg BID, ASA 81 mg daily RANDOLPH in 6 weeks to confirm complete occlusion of LIZETTE, then will DC Eliquis 2. PAD with prior vascular interventions/foot ul cers Vascular surgery and podiatry onboard Discussed with Dr. Oakley - he is ok for Eliquis + baby ASA without Plavix 3. Hypertension BP stable continue metoprolol 4. 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 Colonoscopy showed nonbleeding external and internal hemorrhoids and diverticulosis in the sigmoid colon and descending colon CV status stable Okay to DC from cardiology Outpatient follow-up with Dr. Davies in 1-2 week s NOK: daughter Judie ([phone]) at 1528 Electronically Signed by Antonina Day MD on at 1253 RPT #:[id number] END OF REPORT 2021-07-22 11:25:00-00:00 [facility] Gastroenterology Progress Note REPORT#:[id number] REPORT STATUS: Signed DATE:07/22/21 TIME: 1124 PATIENT: KAYLYNN MISTRY UNIT #: [id number] ROOM/BED: [place] [address] : 35 AGE: 85 SEX: M ATTEND: Vinnie Garcia MD ADM AUTHOR: Henry Douglas * ALL edits or amendments must be made on the [employer]/computer document * Henry Douglas 07/22/21 1125: Subjective Comments: No overt gi bleeding per nurse. No abdominal irene n Review of Systems Additional notes: 10 point ros neg except hpi Objective General VS/I O: Last Documented: Result Date Time Pulse Ox 95 07/22 1247 B/P 128/66 07/22 1247 B/P Mean 0.0 07/22 1247 Temp 98.4 07/22 1247 Pulse 81 07/22 1247 Resp 16 07/22 1247 O2 Delivery Room air 07/22 2007 O2 Flow Rate 0 07/15 152 24 hour I O ending at 0700: 07/22 0700 07/21 1900 Intake Total Output Total Balance Weight Measurement Method PATIENT WEIGHT: Weight (lb): 184 Weight (oz): 15.49 Weight (kg): 83.461 Medications: Active Meds + DC'd Last 24 Hrs Apixaban (ELIQUIS 2.5MG TABLET) 2.5 MG BID PO (r ) Polyethylene Glycol (MIRALAX) 17 GM DAILY PRN NM N PO Aspirin (ASPIRIN) 81 MG DAILY PO Pantoprazole (PROTONIX) 40 MG BID AC PO Trazodone HCl (DESYREL) 50 MG BEDTIME PO Nitroglycerin (NITRO-BID) 0.5 INCH DAILY TRANSDE RM Finasteride (PROSCAR) 5 MG DAILY PO Tamsulosin HCl (Flomax 0.4 mg) 0.4 MG BID PO Docusate Sodium (COLACE) 100 MG BID PO Lactulose (LACTULOSE) 20 GM BID PRN PRN PO Metoprolol Tartrate (LOPRESSOR) 25 MG BEDTIME PO Cyanocobalamin (Vitamin B-12 500 mcg tab) 500 MC G DAILY PO Folic Acid (FOLIC ACID) 1 MG DAILY PO Multivitamins (TAB-A-FINESSE) 1 TAB DAILY PO Thiamine HCl (THIAMINE HCL) 100 MG DAILY PO Physical Exam General appearance: alert, awake HEENT: abnl conjunctiva/sclera, dry mucosal memb ranes Neck: decreased range of motion Cardiovascular: normal capillary refill, regular rate rhythm Respiratory: aerating well, symmetric expansion Abdomen: non-tender Extremities: decreased range of motion Musculoskeletal: decreased ROM Neuro/HAND COLLATOR: alert Skin: abnormal color, abnormal temperature, ecch ymosis Ulcer: Type/cause: arterial Duration: chronic Location: foot Laterality: left Stage: 3 Psychiatry: abnl judgment/insight Diagnosis, Assessment Plan Free Text A P: worsening anemia FOBT+ delirium, improved chronic anticoagulation chronic antiplatelet therapy coagulopathy s/p watchman 07/2021 - monitor h/h, transfuse as needed - monitor for overt gi bleeding while on eliquis and aspirin - diet as tolerated - ppi bid - agree with cardiology plan of care - daily bowel regimen Alfredito Jerez 07/22/21 1625: Attestations Physician Attestation Agree w/findings plan: I examined the patient and agree with the christine gs and plan as documented by Misael MORATAYA; Electronically Signed by Henry Douglas on at 1612 Electronically Signed by Alfredito Jerez MD on at 1625 RPT #:[id number] END OF REPORT 2021-07-22 07:12:00-00:00 [id number] [place], [place] [address] PATIENT NAME: KAYLYNN MISTRY ADMIT DATE: 2 ACCOUNT NO: [id number] ROOM NO: [id number] AGE: 85 REPORT TYPE: eECHOCARDIOGRAM REPORT SEX: M ADMITTING PHYSICIAN:Santiago Garcia MD ATTENDING PHYSICIAN:Santiago Garcia MD *[address] [place] [address] Limited Transthoracic Echocardiogram Patient: Kaylynn Mistry Study Date: 07/21/2021 BP: 124 / 77 Location: [facility] URN: [id number] 0883 : 11/26/1936 Age: 84 Height: 69 in / 175.3 cm Gender: M Weight: 18 3.6 lb / 83.5 kg BMI/BSA: 27.2 kg/m 2 / 1.99 m 2 *Ordering Physician: * Lucas Kan *Interpreting Physician: * Antonina Day MD *Panel Wirer: Lynn Barbour Indications: R/O PERICARDIAL EFFUSION. Study data: Transthoracic echocardiogram, limite d study. Procedure: Transthoracic echocardiography was performed. Im ages were obtained using a [employer] cardiac ultrasound machine. Limited 2D and limited spectral Doppler. Location: Bedside. Patient status: Regan price. Patient room number: 3344. Study status: Routine. Findings Left ventricle: The cavity size is normal. Wall thickness is normal. Systolic function is normal. The estimated eject ion fraction is 50-55%. Wall motion is normal; there are no regional wal l motion abnormalities. Left atrium: The atrium is dilated. Aortic valve: The leaflets are mildly thickened. Mild calcification. The findings are consistent with mild to moderat e stenosis. There is PATIENT NAME: KAYLYNN MISTRY 0883 mild regurgitation. Mitral valve: There is mild regurgitation. Tricuspid valve: There is mild-moderate regurgit ation. Pericardium: There is no pericardial effusion. Systemic veins: Inferior vena cava: The vessel is dilated. Measurements Left ventricle Value 04/13/2021 Ref CARISA, LAX 4.9 cm 5.5 4.2 - 5.8 ESD, LAX 3.2 cm 3.5 2.5 - 4.0 ESD/bsa, 1.6 cm/m 2 1.8 1.3 LAX - 2.1 FS, LAX 34 % 36 25 - 43 ESD/bsa 3.1 cm/m 2 3.1 ---- major ax, A4C CARISA/bsa 3.1 cm/m 2 3.1 ---- minor ax, A4C CARISA major 7.4 cm 7.1 ---- ax, A2C CARISA/bsa 3.7 cm/m 2 3.5 ---- major ax, A2C PW, ED 1.1 cm 1.0 0.6 - 1.0 IVS/PW, ED 0.96 0.99 ---- EF 63 % 64 52 - 72 LVOT Value 04/13/2021 Ref Diam, S 2.16 cm 2.10 ---- Area 3.7 cm 2 3.5 ---- Peak jonny, S 0.69 m/sec 0.42 ---- Mean jonny, S 0.45 m/sec 0.29 ---- VTI, S 14.4 cm 5.4 ---- Peak grad, 2 mm Hg 1 ---- S Mean grad, 1 mm Hg 0 ---- S SV 53 ml 19 ---- Qs 3.72 L/min 2.23 ---- Qs/bsa 1.9 L/(min-m 2) 1.1 ---- SV/bsa 26 ml/m 2 9 ---- PATIENT NAME: KAYLYNN MISTRY 0883 Ventricular septum Value 04/13/2021 Ref IVS, ED 1.0 cm 1.0 0.6 - 1.0 Right ventricle Value 04/13/2021 Ref Pressure, S 33 mm Hg ---- Left atrium Value 04/13/2021 Ref AP dim, ES 3.90 cm 4.02 3.00 - 4.00 Aortic valve Value 04/13/2021 Ref Peak v, S 3.02 m/sec 2.29 ---- Mean v, S 2.21 m/sec 1.65 ---- VTI, S 68.2 cm 35.8 ---- Mean grad, 21.0 mm Hg 12.1 ---- S Peak grad, 36.6 mm Hg 20.9 ---- S LVOT/AV, 0.21 0.15 ---- VTI ratio JOHNNY, VTI 0.89 cm 2 0.52 ---- LVOT/AV, 0.23 0.19 ---- Vpeak ratio JOHNNY, Vmax 0.86 cm 2 0.65 ---- AR peak v 3.89 m/sec 3.77 ---- AR decel 192 cm/s 2 132 ---- AR decel 2390 ms 2848 ---- time AR PHT 693 ms 826 ---- AR peak 61 mm Hg 57 ---- grad Pulmonic valve Value 04/13/2021 Ref NM v, ED 0.71 m/sec 1.2 ---- Tricuspid valve Value 04/13/2021 Ref TR peak v 2.38 m/sec 5.89 <=2. 8 Peak RV-RA 23 mm Hg 139 ---- grad, S Pulmonary artery Value 04/13/2021 Ref Pressure, S 32.7 mm Hg ---- Systemic veins Value 04/13/2021 Ref Estimated 10 mm Hg ---- CVP Conclusions PATIENT NAME: KAYLYNN MISTRY 0883 Summary: 1. Left ventricle: The cavity size is normal. Wa ll thickness is normal. Systolic function is normal. The estimated ejec tion fraction is 50-55%. Wall motion is normal; there are no reg ional wall motion abnormalities. 2. Left atrium: The atrium is dilated. 3. Aortic valve: Mild calcification. The finding s are consistent with mild to moderate stenosis. 4. Tricuspid valve: There is mild-moderate regur gitation. Prepared and electronically signed by Antonina Day MD 07/22/2021 07:12 Electronically Signed by Antonina Day MD on 0 07/22/21 at 0712 PATIENT NAME: KAYLYNN MISTRY 0883 2021-07-22 06:34:00-00:00 [facility] Rehab Progress Note REPORT#:[id number] REPORT STATUS: Signed DATE:07/22/21 TIME: 633 PATIENT: KAYLYNN MISTRY UNIT #: [id number] ROOM/BED: [place] [address] : 35 AGE: 85 SEX: M ATTEND: Vinnie Garcia MD ADM AUTHOR: Harish Garcia * ALL edits or amendments must be made on the el [employer]/computer document * Subjective Chief complaint: Rehab follow-up Doing fair Pain controlled Eating well Still weak Denies WALTERS/N/V/D/CP 14 systems reviewed and neg. except that above. Objective General VS: Vital Signs: Date Time Temp Pulse Resp B/P B/P Pulse O2 O2 F low FiO2 Mean Ox Delivery Rate 07/22 0440 97.7 69 18 142/67 0.0 99 07/22 0300 60 51 139/74 100 98 07/22 0200 64 37 123/76 94 97 07/22 0100 55 26 112/76 89 99 07/22 0043 60 32 128/70 95 99 07/21 2341 71 38 91/64 73 96 07/21 2330 97.7 69 18 93/56 0.0 96 07/21 2324 65 47 93/56 68 96 07/21 2300 61 45 96 07/21 2200 72 69 96 07/21 2100 68 43 07/22 2007 97.9 71 18 112/80 0.0 100 Room air 07/21 1733 97.9 70 20 102/65 0.0 94 Room air 07/21 1037 98.1 61 20 135/80 0.0 100 Room air 07/21 0734 97.7 77 20 114/79 0.0 100 Room air PATIENT WEIGHT: Weight (lb): 184 Weight (oz): Weight (kg): 83.461 Medications: Active Meds + DC'd Last 24 Hrs Apixaban (ELIQUIS 2.5MG TABLET) 2.5 MG BID PO (r ) Polyethylene Glycol (MIRALAX) 17 GM DAILY PRN NM N PO Aspirin (ASPIRIN) 81 MG DAILY PO Pantoprazole (PROTONIX) 40 MG BID AC PO Trazodone HCl (DESYREL) 50 MG BEDTIME PO Nitroglycerin (NITRO-BID) 0.5 INCH DAILY TRANSDE RM Finasteride (PROSCAR) 5 MG DAILY PO Tamsulosin HCl (Flomax 0.4 mg) 0.4 MG BID PO Docusate Sodium (COLACE) 100 MG BID PO Lactulose (LACTULOSE) 20 GM BID PRN PRN PO Metoprolol Tartrate (LOPRESSOR) 25 MG BEDTIME PO Cyanocobalamin (Vitamin B-12 500 mcg tab) 500 MC G DAILY PO Folic Acid (FOLIC ACID) 1 MG DAILY PO Multivitamins (TAB-A-FINESSE) 1 TAB DAILY PO Sterile Water (WATER FOR INJECTION) 1.2 ML ASDIR PRN IV (DC) Thiamine HCl (THIAMINE HCL) 100 MG DAILY PO Ziprasidone (GEODON 20MG VIAL) 10 MG Q6H PRN PRN IM (DC) Functional Progress Functional progress: Safety addressed through use of: Gait Belt Verbal Cues Gait Device RW Weightbearing: No Restriction Ambulation Distance: 250 FT Progression: Forward Backward Lateral, Right Lateral, Left Assistance Level: Supervision or Set-up Gait Deviations: Decreased Madhuri Advanced Progression: No Effects of Treatment: Balance Improved Function Improved Tolerance increased Post TX Precautions: In Bed, rails Up Bed 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 PATIENT MIN A FOR SUPINE TO SIT AND S BA FOR STATIC SITTING. PATIENT MIN A FOR SIT TO STAND AND AMBULATED 250' WITH RW AND WC TO FOLLOW. PATIENT NOTED WITH NARROW HANNA, AND MILD FATIUGE . PATIENT PLACED BACK IN BEDSIDE CHAIR WITH CALL CHAPA IN REACH AND ALL NEEDS MET. RN NOTIFIED AN D AWARE. If this is the patient's last treatment, this e ntry Start Time: 919 Stop Time: 944 Treatment Time : ( minutes) 0:25 Completed by: Andrea Lovell Conference/Supervising PT: Yes Supervising Therapist: 2 Joanie Nickerson . BED MOBILITY: Yes Supine to Sit: Minimal Assistance TRANSFERS: Yes Sit to/from stand: Minimal Assistance Physical Exam General appearance: alert, awake Psych: alert, normal affect, oriented x 3 HEENT: anicteric, sclera clear Neck: supple, no JVD Cardiovascular: regular rate rhythm, S1/S2 Respiratory: aerating well, clear bilaterally Abdomen: bowel sounds present, non-distended, so ft Skin: no rash, ulcers to hallux and 4th toe Ulcer: Type/cause: arterial Duration: chronic Location: foot Laterality: left Stage: 3 Musculoskeletal - general: Musculoskeletal - general: joints normal, charan l muscle mass Neuro/HAND COLLATOR: alert, oriented X 3, CNII-XII intact Results Findings/Data: Laboratory Tests 07/21 07/20 0446 0530 Chemistry Sodium (134 - 147 mEq/L) 143 141 Potassium (3.4 - 5.0 mEq/L) 4.1 4.9 Chloride (100 - 108 mEq/L) 111 H 110 H Carbon Dioxide (21 - 33 mEq/l) 25 23 Anion Gap (0 - 20) 11 13 BUN (7 - 18 mg/dL) 16 15 Creatinine (0.6 - 1.3 mg/dL) 1.0 0.9 Glomerular Filtr Rate (70 - 80) 71.0 80.2 H Glucose (70 - 110 mg/dL) 128 H 141 H Calcium (8.0 - 10.5 mg/dL) 8.5 9.0 Laboratory Tests 07/20 07/20 0832 0732 Coagulation INR (0.8 - 1.2) 1.3 H PTT ([place]) (25.0 - 39.5 Seconds) 30.1 PT Patient/Control Mix (9.3 - 12.9 SECONDS) 14. 2 H Activated Coag Time (74 - 137 SEC) 285 H Laboratory Tests 07/21 07/20 0446 0530 Hematology WBC (4.5 - 11.0 x10 3/uL) 14.8 H 8.0 RBC (4.00 - 5.60 x10 6/uL) 3.02 L 3.38 L Hgb (12.5 - 16.9 g/dL) 9.3 L 10.4 L Hct (37.5 - 50.7 %) 30.7 L 33.3 L MCV (81.0 - 99.0 fL) 101.7 H 98.5 MCH (27.0 - 33.0 pg) 30.8 30.8 MCHC (33.0 - 37.0 g/dL) 30.3 L 31.2 L RDW (11.5 - 14.5 %) 16.9 H 16.3 H Plt Count (150 - 400 x10 3/uL) 300 342 MPV (7.0 - 9.0 fL) 10.1 H 9.8 H Neut % (Auto) (56.0 - 77.0 %) 82.7 H 84.9 H Lymph % (Auto) (14.0 - 32.0 %) 11.9 L 13.1 L Person % (Auto) (4.8 - 9.0 %) 4.8 1.1 L Eos % (Auto) (0.3 - 3.7 %) 0.0 L 0.0 L Baso % (Auto) (0.0 - 2.0 %) 0.1 0.3 Neut # (Auto) (2.0 - 7.6 x10 3/uL) 12.27 H 6.79 Lymph # (Auto) (1.0 - 3.8 x10 3/uL) 1.76 1.05 Person # (Auto) (0.1 - 0.8 x10 3/uL) 0.71 0.09 L Eos # (Auto) (0.0 - 0.2 x10 3/uL) 0.00 0.00 Baso # (Auto) (0.0 - 0.2 x10 3/uL) 0.02 0.02 Abs Immat Gran (auto) (0.00 - 0.03 x10 3/uL) 0. 08 H 0.05 H Add Manual Diff NO NO Immature Gran % (0.0 - 2.0 %) 0.5 0.6 Nucleated RBC % (0 - 0 %) 0.0 0.0 Nucleated RBCs # (Man) (0.0 - 0.1 x10 3/uL) 0.0 0 0.00 Laboratory Tests 07/19 1545 Serology SARS-CoV-2 Ag (Rapid) (Negative) Negative Recent Impressions: RADIOLOGY - XR CHEST 1 V 07/20 1132 Report Impression - Status: SIGNED Entered: 07/20/2021 1145 IMPRESSION: There is no radiographic evidence of acute disea se. Impression By: [email or web address] - Kong Cervantes M.D. Diagnosis, Assessment Plan Free Text A P: Generalized weakness Impaired mobility and gait Anemia PAD Ulcerations toes 1 and 4 left foot Hypertension Atrial fibrillation Alcohol use Leukocytosis Plan: Continue PT/OT Out of bed to chair Work on strength, bed mobility, transfers, gait Increase endurance Fall precautions Monitor p.o. intake and nutrition Strict decubitus precautions Continue wound care and antibiotics Psych on case Going for EGD/colonoscopy today for + FOBT and w orsening anemia Advance therapies as tolerated IRF consulted Pt not working well with therapy S/p EGD and colonoscopy Found to have gastritis esophagitis and some div erticulosis but no bleeding Will wait for GI clearance before starting antic oagulation and antiplatelets S/p watchman Patient min assist with transfers and ambulating 250 feet Advance therapies as tolerated Patient declining IRF. Wants to go home when cleared. Will need home health PT /OT at that time Total time was 35 minutes > 50% with patient per forming physical examination, discussing plan of care, goals, therapies, progr ess, medications, labs, Discharge planning. All questions answered Rehab attestation: . Electronically Signed by Harish Garcia on 0 07/22/21 at 1639 RPT #:[id number] END OF REPORT 2021-07-21 18:25:00-00:00 [facility] ([facility]) Hospitalist Progress Note REPORT#:[id number] REPORT STATUS: Signed DATE:07/21/21 TIME: 1824 PATIENT: KAYLYNN MISTRY UNIT #: [id number] ROOM/BED: [address] : 35 AGE: 85 SEX: M ATTEND: Vinnie Garcia MD ADM AUTHOR: Santiago Garcia MD * ALL edits or amendments must be made on the el [employer]/computer document * Subjective Chief complaint: Pt seen and exam'd. Events noted. Following up l eg pain, confusion. Less confusion/ agitation today. Had Watchman placed yesterday. Review of Systems All systems rev neg: except as marked Objective General VS/I O: Vital Signs: Date Time Temp Pulse Resp B/P B/P Pulse O2 O2 F low FiO2 Mean Ox Delivery Rate 07/21 1733 36.6 70 20 102/65 0.0 94 Room air 07/21 1037 36.7 61 20 135/80 0.0 100 Room air 07/21 0734 36.5 77 20 114/79 0.0 100 Room air 07/21 0437 36.8 70 18 124/77 0.0 100 Room air 07/20 2326 36.5 65 18 111/55 0.0 92 Room air 07/20 2325 65 26 111/55 72 95 07/20 1952 79 39 120/64 85 96 07/21 1951 36.8 80 20 120/64 0.0 92 Room air 07/20 1900 77 27 98 24 hour I O ending at 0700: 07/21 0700 07/20 190 Intake Total 1215 Output Total 250 Balance 965 Intake, Other 1215 Number 2 Bowel Movements Number 0 Incontinent Voids Number Voids 1 Output, Urine 250 PATIENT WEIGHT: Weight (lb): 184 Weight (oz): Weight (kg): 83.461 Medications: Active Meds + DC'd Last 24 Hrs Apixaban (ELIQUIS 2.5MG TABLET) 2.5 MG BID PO (r ) Polyethylene Glycol (MIRALAX) 17 GM DAILY PRN NM N PO Aspirin (ASPIRIN) 81 MG DAILY PO Pantoprazole (PROTONIX) 40 MG BID AC PO Trazodone HCl (DESYREL) 50 MG BEDTIME PO Nitroglycerin (NITRO-BID) 0.5 INCH DAILY TRANSDE RM Finasteride (PROSCAR) 5 MG DAILY PO Tamsulosin HCl (Flomax 0.4 mg) 0.4 MG BID PO Docusate Sodium (COLACE) 100 MG BID PO Lactulose (LACTULOSE) 20 GM BID PRN PRN PO Metoprolol Tartrate (LOPRESSOR) 25 MG BEDTIME PO Cyanocobalamin (Vitamin B-12 500 mcg tab) 500 MC G DAILY PO Folic Acid (FOLIC ACID) 1 MG DAILY PO Multivitamins (TAB-A-FINESSE) 1 TAB DAILY PO Sterile Water (WATER FOR INJECTION) 1.2 ML ASDIR PRN IV (DC) Thiamine HCl (THIAMINE HCL) 100 MG DAILY PO Ziprasidone (GEODON 20MG VIAL) 10 MG Q6H PRN PRN IM (DC) Physical Exam General appearance: alert, awake, no acu te distress, pleasant, conversational, no respiratory distress Head/Eyes: atraumatic, EOMI, normocephalic, PERR L ENT: moist mucosal membranes Neck: full range of motion, non-tender Cardiovascular: normal heart sounds, regular rat e rhythm Respiratory: aerating well, clear to auscultatio n Abdomen: non-tender, normal bowel sounds, soft, no distention Genitourinary: no bladder distention Extremities: no clubbing, no cyanosis, no edema Skin: no rash Ulcer: Type/cause: arterial Duration: chronic Location: foot Laterality: left Stage: 3 Results Findings/Data: Laboratory Tests 07/21 0446 Chemistry Sodium (134 - 147 mEq/L) 143 Potassium (3.4 - 5.0 mEq/L) 4.1 Chloride (100 - 108 mEq/L) 111 H Carbon Dioxide (21 - 33 mEq/l) 25 Anion Gap (0 - 20) 11 BUN (7 - 18 mg/dL) 16 Creatinine (0.6 - 1.3 mg/dL) 1.0 Glomerular Filtr Rate (70 - 80) 71.0 Glucose (70 - 110 mg/dL) 128 H Calcium (8.0 - 10.5 mg/dL) 8.5 Laboratory Tests 07/21 0446 Hematology WBC (4.5 - 11.0 x10 3/uL) 14.8 H RBC (4.00 - 5.60 x10 6/uL) 3.02 L Hgb (12.5 - 16.9 g/dL) 9.3 L Hct (37.5 - 50.7 %) 30.7 L MCV (81.0 - 99.0 fL) 101.7 H MCH (27.0 - 33.0 pg) 30.8 MCHC (33.0 - 37.0 g/dL) 30.3 L RDW (11.5 - 14.5 %) 16.9 H Plt Count (150 - 400 x10 3/uL) 300 MPV (7.0 - 9.0 fL) 10.1 H Neut % (Auto) (56.0 - 77.0 %) 82.7 H Lymph % (Auto) (14.0 - 32.0 %) 11.9 L Person % (Auto) (4.8 - 9.0 %) 4.8 Eos % (Auto) (0.3 - 3.7 %) 0.0 L Baso % (Auto) (0.0 - 2.0 %) 0.1 Neut # (Auto) (2.0 - 7.6 x10 3/uL) 12.27 H Lymph # (Auto) (1.0 - 3.8 x10 3/uL) 1.76 Person # (Auto) (0.1 - 0.8 x10 3/uL) 0.71 Eos # (Auto) (0.0 - 0.2 x10 3/uL) 0.00 Baso # (Auto) (0.0 - 0.2 x10 3/uL) 0.02 Abs Immat Gran (auto) (0.00 - 0.03 x10 3/uL) 0. 08 H Add Manual Diff NO Immature Gran % (0.0 - 2.0 %) 0.5 Nucleated RBC % (0 - 0 %) 0.0 Nucleated RBCs # (Man) (0.0 - 0.1 x10 3/uL) 0.0 0 Diagnosis, Assessment Plan Free Text DxA P Notes Free text DxA P notes: 1. Left lower extremity swelling. 2. Peripheral vascular disease. 3. Atrial fibrillation. 4. Foot wounds. 5. Questionable history of syncope. 6. Alcohol use. 7. Benign prostatic hypertrophy. 8. Hypertension. 9. Likely dementia. Improving mentation, continue to monitor. Pain/ discomfort related to reperfusion. Empiric abx. Swelling improving. Continue med tx. Monitor BP/ HR. Foot wound care. Appreciate Psych, Vasc, Pod input. Start PT/OT. CM to assist with dc planning. Urinary symptoms possible related to BPH; Add Av odart and increase Flomax. d/w dtr, all questions answered. 07/13/2021 Patient with left leg swelli ng, peripheral vascular disease, A. fib, foot wounds , BPH, hypertension Mental status much better today He states he feels depressed and misses his who 12 years ago Psych has been consulted PT/OT on board Vitals reviewed acceptable Labs reviewed acceptable Encouraged PT/OT PMNR consulted as patient st ates that he lives at home and wants to return back home when better 07/14/21 doing ok vitals reviewed-some hypotension today stop losartan and amlodipine Labs reviewed-Hb dropped stool OB requested and reported positive GI consulted hold xarelto and asa and plavix cardio consulted for further recommendations patient has 2 daughters, both son in law at bedside today and patient in their presence okay[facility] consulted PMNR help appreciated CM to help with rehab arrangement, preferable pr ivate bed/not a shared room repeat labs in am 07/15/21 doing ok vitals reviewed-BP low labs reviewed-Hb lower than yesterday holding xarelto and ASA and plavix cardio has evaluated the patient GI help appreciated EGD/Colonoscopy in plan Iron studies requested will give one unit PRBC today as anemic and hypo tensive PMNR following, will dc to rehab once medically cleared 07/16/2021 Patient is doing okay Vitals reviewed blood pressure still low Labs reviewed hemoglobin better after transfusio n Still aspirin Plavix and Xarelto is on hold GI help appreciated S/p EGD and colonoscopy Found to have gastritis esophagitis and some div erticulosis but no bleeding Will wait for GI clearance before starting antic oagulation and antiplatelets Waiting on cardio recommendations which ones to start Discharge to inpatient rehab once medically ceci red 07/17/21 doing ok wants to go home nurse present in room during visit cardio has discussed with daughter, needs LAP off antiplatelets for now for dropping Hb Hb better now will get GI opinion about restarting antiplatele ts then he needs rehab, patient agreed infront of f amily but not wanting it now will discuss again once medically ready 07/18/21 doing ok sitting up in chair better mood today and understanding his illnesse s vitals reviewed-BP lowinsh Labs-no new today Hb was 10 yesterday antiplatlets and anticoag still on hold cardio waiting on GI to ok to restart d/w GI going for LAP occlusion on as cardio note, not scheduled on chart yet am labs requested 07/19/21 doing ok vitals reviewed-acceptable Labs reviewed-acceptable restarted anticoag and antiplt eliquis and ASA HB holding ok for now cardio EP doing wathcman tomorrow COVID tested-negative am labs requested 07/20/21 Had Watchman placement. Continue postop care. PT eval. Hbg holding; watch for s/sx bleeding 07/21/21 Had Watchman. Continue post op care. Diet and activity as tolerated. Hgb holding, watch for any bleeding. If doing well then maybe home soon. Electronically Signed by Santiago Garcia MD on at 1826 RPT #:[id number] END OF REPORT 2021-07-21 18:02:00-00:00 [facility] Progress Note REPORT#:[id number] REPORT STATUS: Signed DATE:07/21/21 TIME: 1801 PATIENT: KAYLYNN MISTRY UNIT #: [id number] ROOM/BED: [id number].3344-1 : 35 AGE: 85 SEX: M ATTEND: Melida Garcia MD ADM AUTHOR: Karsten Martines DPM * ALL edits or amendments must be made on the el [employer]/computer document * General VS/I O: Last Documented: Result Date Time Pulse Ox 94 07/21 1733 B/P 102/65 07/21 1733 B/P Mean 0.0 07/21 1733 O2 Delivery Room air 07/21 1733 Temp 36.6 07/21 1733 Pulse 70 07/21 1733 Resp 07/21 1733 O2 Flow Rate 0 07/15 1525 24 hour I O ending at 0700: 07/21 0700 07/20 1900 Intake Total 1215 Output Total 250 Balance 965 Intake, Other 1215 Number 2 Bowel Movements Number 0 Incontinent Voids Number Voids 1 Output, Urine 250 PATIENT WEIGHT: Weight (lb): 184 Weight (oz): Weight (kg): 83.461 Subjective Chief complaint: ulceration left Objective General VS: Last Documented: Result Date Time Pulse Ox 94 07/21 1733 B/P 102/65 07/21 1733 B/P Mean 0.0 07/21 173 O2 Delivery Room air 07/21 1733 Temp 36.6 07/21 1733 Pulse 70 07/21 1733 Resp 07/21 1733 O2 Flow Rate 0 07/15 1525 PATIENT WEIGHT: Weight (lb): 184 Weight (oz): Weight (kg): 83.461 Medications: Active Meds + DC'd Last 24 Hrs Apixaban (ELIQUIS 2.5MG TABLET) 2.5 MG BID PO (r ) Polyethylene Glycol (MIRALAX) 17 GM DAILY PRN NM N PO Aspirin (ASPIRIN) 81 MG DAILY PO Pantoprazole (PROTONIX) 40 MG BID AC PO Trazodone HCl (DESYREL) 50 MG BEDTIME PO Nitroglycerin (NITRO-BID) 0.5 INCH DAILY TRANSDE RM Finasteride (PROSCAR) 5 MG DAILY PO Tamsulosin HCl (Flomax 0.4 mg) 0.4 MG BID PO Docusate Sodium (COLACE) 100 MG BID PO Lactulose (LACTULOSE) 20 GM BID PRN PRN PO Metoprolol Tartrate (LOPRESSOR) 25 MG BEDTIME PO Cyanocobalamin (Vitamin B-12 500 mcg tab) 500 MC G DAILY PO Folic Acid (FOLIC ACID) 1 MG DAILY PO Multivitamins (TAB-A-FINESSE) 1 TAB DAILY PO Sterile Water (WATER FOR INJECTION) 1.2 ML ASDIR PRN IV (DC) Thiamine HCl (THIAMINE HCL) 100 MG DAILY PO Ziprasidone (GEODON 20MG VIAL) 10 MG Q6H PRN PRN IM (DC) I O: 24 hour I O ending at 0700: 07/21 0700 07/20 1900 Intake Total 1215 Output Total 250 Balance 965 Intake, Other 1215 Number 2 Bowel Movements Number 0 Incontinent Voids Number Voids 1 Output, Urine 250 Nutrition assessment: The data set between the solid lines has been im ported from the dietitian's assessment. Any exceptions have been noted under Provider comments. BMI Calculated: 27.2 Nutrition related diagnosis: Nutrition diagnosis details: Nutrition problem: Nutrition etiology: Nutrition signs and symptoms: Nutrition prescription: Dietitian name: Assessment completed: Provider comments on imported dietitian assessme nt: Physical Exam General appearance: awake LE vascular pulse assess: 1+ R posterior tibialis, 1+ L posterior tibialis , 1+ R dorsalis pedis, 1+ L dorsalis pedis Capillary refill: Capillary refill (in seconds): < 3 seconds Right foot, < 3 seconds Left foot Reflexes: Achilles: 2+ Foot: vascular deficit Musculoskeletal: Musculoskeletal: decreased ROM Neuro/HAND COLLATOR: oriented X 3, no motor deficits Skin: ecchymosis (ecchymosis of left foot), dry Ulcer: Location: foot Type: arterial Appearance: necrotic tissue, Ulcerations to the dorsal 4th toe and plantar hallux have dry stable escha r no localized skin or soft tissue infection noted. Drainage: without odor Results Findings/Data: Laboratory Tests: 07/21 0446 Chemistry Sodium (134 - 147 mEq/L) 143 Potassium (3.4 - 5.0 mEq/L) 4.1 Chloride (100 - 108 mEq/L) 111 H Carbon Dioxide (21 - 33 mEq/l) 25 Anion Gap (0 - 20) 11 BUN (7 - 18 mg/dL) 16 Creatinine (0.6 - 1.3 mg/dL) 1.0 Glomerular Filtr Rate (70 - 80) 71.0 Glucose (70 - 110 mg/dL) 128 H Calcium (8.0 - 10.5 mg/dL) 8.5 Hematology WBC (4.5 - 11.0 x10 3/uL) 14.8 H RBC (4.00 - 5.60 x10 6/uL) 3.02 L Hgb (12.5 - 16.9 g/dL) 9.3 L Hct (37.5 - 50.7 %) 30.7 L MCV (81.0 - 99.0 fL) 101.7 H MCH (27.0 - 33.0 pg) 30.8 MCHC (33.0 - 37.0 g/dL) 30.3 L RDW (11.5 - 14.5 %) 16.9 H Plt Count (150 - 400 x10 3/uL) 300 MPV (7.0 - 9.0 fL) 10.1 H Neut % (Auto) (56.0 - 77.0 %) 82.7 H Lymph % (Auto) (14.0 - 32.0 %) 11.9 L Person % (Auto) (4.8 - 9.0 %) 4.8 Eos % (Auto) (0.3 - 3.7 %) 0.0 L Baso % (Auto) (0.0 - 2.0 %) 0.1 Neut # (Auto) (2.0 - 7.6 x10 3/uL) 12.27 H Lymph # (Auto) (1.0 - 3.8 x10 3/uL) 1.76 Person # (Auto) (0.1 - 0.8 x10 3/uL) 0.71 Eos # (Auto) (0.0 - 0.2 x10 3/uL) 0.00 Baso # (Auto) (0.0 - 0.2 x10 3/uL) 0.02 Abs Immat Gran (auto) (0.00 - 0.03 x10 3/uL) 0 .08 H Add Manual Diff NO Immature Gran % (0.0 - 2.0 %) 0.5 Nucleated RBC % (0 - 0 %) 0.0 Nucleated RBCs # (Man) (0.0 - 0.1 x10 3/uL) 0.0 0 Results: labs reviewed Diagnosis, Assessment Plan Free Text A P: PAD b/l LE s/p recent revascularization Ulcerations toes 1 and 4 left foot with dry, sta ble eschar Localized edema b/l LE Injury left foot BETADIEN WTD DAILY LEFT FOOT WBAT VASCULAR EVAL PAIN CONTROL PT/OT WILL FOLLOW Electronically Signed by Karsten Martines DPM on 06/21 at 0949 RPT #:[id number] END OF REPORT 2021-07-21 11:07:00-00:00 [facility] REPORT#:[id number] REPORT STATUS: Signed DATE:07/21/21 TIME: 110 PATIENT: KAYLYNN MISTRY UNIT #: [id number] ROOM/BED: [place] [address] : 35 AGE: 85 SEX: M ATTEND: Vinnie Garcia MD ADM AUTHOR: Henry Douglas * ALL edits or amendments must be made on the [employer]/computer document * Henry Douglas 07/21/21 1107: Subjective Comments: Tolerating PO. No abdominal pain, nausea, or vom iting. No overt gi bleeding Review of Systems Additional notes: 10 point ros neg except hpi Objective General VS/I O: Last Documented: Result Date Time Pulse Ox 100 07/21 1037 B/P 135/80 07/21 1037 B/P Mean 0.0 07/21 1037 O2 Delivery Room air 07/21 1037 Temp 98.1 07/21 1037 Pulse 61 07/21 1037 Resp 20 07/21 1037 O2 Flow Rate 0 07/15 1525 24 hour I O ending at 0700: 07/21 0700 07/20 1900 Intake Total 1215 Output Total 250 Balance 965 Intake, Other 1215 Number 2 Bowel Movements Number 0 Incontinent Voids Number Voids 1 Output, Urine 250 PATIENT WEIGHT: Weight (lb): 184 Weight (oz): Weight (kg): 83.461 Medications: Active Meds + DC'd Last 24 Hrs Sodium Chloride (SODIUM CHLORIDE 0.9%) 250 ML DIR PRN IV (DC) Acetaminophen (TYLENOL EXTRA STRENGTH) 1,000 MG PREOP ONCALL PO (DC) Gabapentin (NEURONTIN) 200 MG PREOP ONCALL PO (D C) Lactated Ringer's (LACTATED RINGERS) 1,000 ML NM EOP ONCALL IV (DC) Lidocaine HCl (LIDOCAINE HCL/PF) 2 ML PREOP ONCA LL LOCAL (DC) Lidocaine HCl (LIDOCAINE HCL/PF) 2 ML PREOP ONCA LL LOCAL (DC) Sodium Chloride (SODIUM CHLORIDE 0.9%) 500 ML NM EOP ONCALL IV (DC) Sodium Chloride (SODIUM CHLORIDE 0.9%) 500 ML NM EOP ONCALL IV (DC) Sodium Chloride (SODIUM CHLORIDE 0.9%) 1,000 ML PREOP ONCALL IV (DC) Sodium Chloride (SODIUM CHLORIDE) 5 ML ASDIR PRN IV (DC) Sodium Chloride (SODIUM CHLORIDE) 10 ML ASDIR NM N IV (DC) Sodium Chloride (SODIUM CHLORIDE 0.9%) 250 ML DIR PRN IV (DC) Sodium Chloride (SODIUM CHLORIDE) 5 ML ASDIR PRN IV (DC) Sodium Chloride (SODIUM CHLORIDE) 10 ML ASDIR NM N IV (DC) Sodium Chloride (SODIUM CHLORIDE 0.9%) 250 ML DIR PRN IV (DC) Apixaban (ELIQUIS 2.5MG TABLET) 2.5 MG BID PO (r ) Polyethylene Glycol (MIRALAX) 17 GM DAILY PRN NM N PO Aspirin (ASPIRIN) 81 MG DAILY PO Pantoprazole (PROTONIX) 40 MG BID AC PO Trazodone HCl (DESYREL) 50 MG BEDTIME PO Nitroglycerin (NITRO-BID) 0.5 INCH DAILY TRANSDE RM Finasteride (PROSCAR) 5 MG DAILY PO Tamsulosin HCl (Flomax 0.4 mg) 0.4 MG BID PO Docusate Sodium (COLACE) 100 MG BID PO Lactulose (LACTULOSE) 20 GM BID PRN PRN PO Metoprolol Tartrate (LOPRESSOR) 25 MG BEDTIME PO Cyanocobalamin (Vitamin B-12 500 mcg tab) 500 MC G DAILY PO Folic Acid (FOLIC ACID) 1 MG DAILY PO Multivitamins (TAB-A-FINESSE) 1 TAB DAILY PO Sterile Water (WATER FOR INJECTION) 1.2 ML ASDIR PRN IV Thiamine HCl (THIAMINE HCL) 100 MG DAILY PO Ziprasidone (GEODON 20MG VIAL) 10 MG Q6H PRN PRN IM Physical Exam General appearance: alert, awake HEENT: abnl conjunctiva/sclera, dry mucosal memb ranes Neck: decreased range of motion Cardiovascular: normal capillary refill, regular rate rhythm Respiratory: aerating well, symmetric expansion Abdomen: non-tender Extremities: decreased range of motion Musculoskeletal: decreased ROM Neuro/HAND COLLATOR: alert Skin: abnormal color, abnormal temperature, ecch ymosis Ulcer: Type/cause: arterial Duration: chronic Location: foot Laterality: left Stage: 3 Psychiatry: abnl judgment/insight Results Findings/Data: Laboratory Tests 07/21/21445: [Embedded Image Not Available] Laboratory Tests 07/21 445 Chemistry Sodium (134 - 147 mEq/L) 143 Potassium (3.4 - 5.0 mEq/L) 4.1 Chloride (100 - 108 mEq/L) 111 H Carbon Dioxide (21 - 33 mEq/l) 25 Anion Gap (0 - 20) 11 BUN (7 - 18 mg/dL) 16 Creatinine (0.6 - 1.3 mg/dL) 1.0 Glomerular Filtr Rate (70 - 80) 71.0 Glucose (70 - 110 mg/dL) 128 H Calcium (8.0 - 10.5 mg/dL) 8.5 Laboratory Tests 07/21 445 Hematology WBC (4.5 - 11.0 x10 3/uL) 14.8 H RBC (4.00 - 5.60 x10 6/uL) 3.02 L Hgb (12.5 - 16.9 g/dL) 9.3 L Hct (37.5 - 50.7 %) 30.7 L MCV (81.0 - 99.0 fL) 101.7 H MCH (27.0 - 33.0 pg) 30.8 MCHC (33.0 - 37.0 g/dL) 30.3 L RDW (11.5 - 14.5 %) 16.9 H Plt Count (150 - 400 x10 3/uL) 300 MPV (7.0 - 9.0 fL) 10.1 H Neut % (Auto) (56.0 - 77.0 %) 82.7 H Lymph % (Auto) (14.0 - 32.0 %) 11.9 L Person % (Auto) (4.8 - 9.0 %) 4.8 Eos % (Auto) (0.3 - 3.7 %) 0.0 L Baso % (Auto) (0.0 - 2.0 %) 0.1 Neut # (Auto) (2.0 - 7.6 x10 3/uL) 12.27 H Lymph # (Auto) (1.0 - 3.8 x10 3/uL) 1.76 Person # (Auto) (0.1 - 0.8 x10 3/uL) 0.71 Eos # (Auto) (0.0 - 0.2 x10 3/uL) 0.00 Baso # (Auto) (0.0 - 0.2 x10 3/uL) 0.02 Abs Immat Gran (auto) (0.00 - 0.03 x10 3/uL) 0. 08 H Add Manual Diff NO Immature Gran % (0.0 - 2.0 %) 0.5 Nucleated RBC % (0 - 0 %) 0.0 Nucleated RBCs # (Man) (0.0 - 0.1 x10 3/uL) 0.0 0 Radiology Data: Recent Impressions: RADIOLOGY - XR CHEST 1 V 07/20 1132 Report Impression - Status: SIGNED Entered: 07/20/2021 1145 IMPRESSION: There is no radiographic evidence of acute disea se. Impression By: [email or web address] - Kong Cervantes M.D. Diagnosis, Assessment Plan Free Text A P: worsening anemia FOBT+ delirium, improved chronic anticoagulation chronic antiplatelet therapy coagulopathy s/p watchman 07/2021 - monitor h/h, transfuse as needed, hgb 9.3 - monitor for overt gi bleeding while on eliquis and aspirin - diet as tolerated - ppi bid - agree with cardiology plan of care - daily bowel regimen Alfredito Jerez 07/21/212122: Attestations Physician Attestation Agree w/findings plan: I examined the patient and agree with the findin gs and plan as documented by Misael MORATAYA; Electronically Signed by Henry Douglas on at 1131 Electronically Signed by Alfredito Jerez MD on 04/ 21/22 at 2123 RPT #:[id number] END OF REPORT 2021-07-21 08:25:00-00:00 [facility] ([facility]) Cardiology Progress Note REPORT#:[id number] REPORT STATUS: Signed DATE:07/21/21 TIME: 824 PATIENT: KAYLYNN MISTRY UNIT #: [id number] ROOM/BED: [place] [address] : 35 AGE: 85 SEX: M ATTEND: Vinnie Garcia MD ADM AUTHOR: Marlen John NP * ALL edits or amendments must be made on the [employer] document * Subjective Chief complaint: doing well, no complaints Objective General VS/I O: Laboratory Tests 07/21/21 0446: [Embedded Image Not Available] 07/20/21 0530: [Embedded Image Not Available] Current Medications Sig/Tate Start time Last Medication Dose Route Stop Time Status Admin Sodium Chloride 250 ML ASDIR PRN 07/20 0930 DC IV 08/19 0929 Iopamidol 0 .STK-MED ONE 07/20 0858 DC 07/20 IV 0915 Acetaminophen 1,000 MG PREOP ONCALL 07/19 1900 DC PO 08/18 2359 Gabapentin 200 MG PREOP ONCALL 07/19 1900 DC PO 08/18 2359 Lactated Ringer's 1,000 ML PREOP ONCALL 07/19 1 900 DC IV 08/18 2359 Lidocaine HCl 2 ML PREOP ONCALL 07/19 1900 DC LOCAL 08/18 2359 Lidocaine HCl 2 ML PREOP ONCALL 07/19 1900 DC LOCAL 08/18 2359 Sodium Chloride 500 ML PREOP ONCALL 07/19 1900 DC IV 08/18 2359 Sodium Chloride 500 ML PREOP ONCALL 07/19 1900 DC IV 08/18 2359 Sodium Chloride 1,000 ML PREOP ONCALL 07/19 190 0 DC IV 08/18 2359 Sodium Chloride 5 ML ASDIR PRN 07/19 1900 DC IV 08/18 1859 Sodium Chloride 10 ML ASDIR PRN 07/19 1900 DC IV 08/18 1859 Sodium Chloride 250 ML ASDIR PRN 07/19 1900 DC IV 08/18 1859 Sodium Chloride 5 ML ASDIR PRN 07/19 1300 DC IV 08/18 1259 Sodium Chloride 10 ML ASDIR PRN 07/19 1300 DC IV 08/18 1259 Sodium Chloride 250 ML ASDIR PRN 07/19 1300 DC IV 08/18 1259 Apixaban 2.5 MG BID 07/19 1030 r 07/20 PO 08/18 1029 2035 Polyethylene Glycol 17 GM DAILY PRN PRN 07/19 1 000 AC PO 08/18 0959 Aspirin 81 MG DAILY 07/18 1700 AC 07/19 PO 08/17 1659 0901 Pantoprazole 40 MG BID AC 07/18 1630 AC 07/20 PO 08/17 1629 1638 Trazodone HCl 50 MG BEDTIME 07/17 2100 AC 07/20 PO 08/16 2058 203 Nitroglycerin 0.5 INCH DAILY 07/14 1530 AC 07/01 9 TRANSDERM 08/13 1529 0901 Finasteride 5 MG DAILY 07/13 0900 AC 07/19 PO 08/12 0859 0901 Tamsulosin HCl 0.4 MG BID 07/12 2100 AC 07/20 PO 08/11 2058 203 Docusate Sodium 100 MG BID 07/11 2100 AC 07/20 PO 08/10 2058 203 Lactulose 20 GM BID PRN PRN 07/11 1530 AC 07/11 PO 08/10 1529 1820 Metoprolol Tartrate 25 MG BEDTIME 07/09 2100 AC 07/20 PO 08/08 205 203 Cyanocobalamin 500 MCG DAILY 07/09 1530 AC 07/01 9 PO 08/08 1529 0901 Folic Acid 1 MG DAILY 07/09 1530 AC 07/19 PO 08/08 1529 0901 Multivitamins 1 TAB DAILY 07/09 1530 AC 07/19 PO 08/08 1529 0901 Sterile Water 1.2 ML ASDIR PRN 07/09 1530 AC IV 08/08 1529 Thiamine HCl 100 MG DAILY 07/09 1530 AC 07/19 PO 08/08 1529 0901 Ziprasidone 10 MG Q6H PRN PRN 07/09 1530 AC IM 08/08 1529 1631 24 hour I O ending at 0700: 07/21 0700 07/20 1900 Intake Total 1215 Output Total 250 Balance 965 Intake, Other 1215 Number 2 Bowel Movements Number 0 Incontinent Voids Number Voids 1 Output, Urine 250 Vital Signs: Date Time Temp Pulse Resp B/P B/P Pulse O2 O2 F low FiO2 Mean Ox Delivery Rate 07/21 0734 36.5 77 20 114/79 0.0 100 Room air 07/21 0437 36.8 70 18 124/77 0.0 100 Room air 07/20 2326 36.5 65 18 111/55 0.0 92 Room air 07/20 2325 65 26 111/55 72 95 07/20 1952 79 39 120/64 85 96 07/20 195 36.8 80 20 120/64 0.0 92 Room air 07/20 1900 77 27 98 07/20 1609 36.5 81 24 112/58 0.0 93 Room air PATIENT WEIGHT: Weight (lb): 184 Weight (oz): Weight (kg): 83.461 Physical Exam General appearance: alert, awake, oriented, no a cute distress Head/Eyes: atraumatic, clear cornea Neck: no JVD Cardiovascular: CV assessment: irregularly irregular Respiratory: clear to auscultation, no distress Abdomen: soft, non-tender, normal bowel sounds, no distention Genitourinary: no flank pain, no medina Lower extremity: LE assessment: no edema Musculoskeletal: normal inspection Neuro/HAND COLLATOR: alert, normal speech Skin: poor skin turgor Ulcer: Type/cause: arterial Duration: chronic Location: foot Laterality: left Stage: 3 Psychiatry: unable to evaluate Results Radiology data: Recent Impressions: RADIOLOGY - XR CHEST 1 V 07/20 1132 Report Impression - Status: SIGNED Entered: 07/20/2021 1145 IMPRESSION: There is no radiographic evidence of acute disea se. Impression By: [email or web address] - Kong Cervantes M.D. Diagnosis, Assessment Plan Free Text DxA P Notes Free Text DxA P Notes: 85 YO male with PMHx of HTN, PAF on chronic anticoagulation, and PAD with prior vascular interventions who is admitted w ith leg pain and swelling. Found to be anemic with positive for occult blood. Cardiolog y is consulted to evaluate if anticogulation can be discontinued given anemia and possible GI bleed. 1. Chronic atrial fibrillation - rate controlled s/p Watchman procedure refusing telemetry continue BB as long as BP stable [id number] score 5 HAS-BLED score 4 Cleared by GI to start AC Eliquis 2.5 mg BID, ASA 81 mg daily RANDOLPH in 6 weeks to confirm complete occlusion of LIZETTE, then will DC Eliquis 2. PAD with prior vascular interventions/foot ul cers Vascular surgery and podiatry onboard Discussed with Dr. Oakley - he is ok for Eliquis + baby ASA without Plavix 3. Hypertension BP stable continue metoprolol 4. 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 Colonoscopy showed nonbleeding external and internal hemorrhoids and diverticulosis in the sigmoid colon and descending colon CV status stable NOK: daughter Judie ([phone]) Electronically Signed by Marlen John NP on 0 07/21/21 at 1312 RPT #:[id number] END OF REPORT 2021-07-21 08:25:00-00:00 [facility] Cardiology Progress Note REPORT#:[id number] REPORT STATUS: Signed DATE:07/21/21 TIME: 824 PATIENT: KAYLYNN MISTRY UNIT #: [id number] ROOM/BED: [place] [address] : 35 AGE: 85 SEX: M ATTEND: Vinnie Garcia MD ADM AUTHOR: Marlen John AUDIO ENGINEER * ALL edits or amendments must be made on the [employer]/computer document * Subjective Chief complaint: doing well, no complaints Objective General VS/I O: Laboratory Tests 07/21/21 0446: [Embedded Image Not Available] 07/20/21 0530: [Embedded Image Not Available] Current Medications Sig/Tate Start time Last Medication Dose Route Stop Time Status Admin Sodium Chloride 250 ML ASDIR PRN 07/20 0930 DC IV 08/19 0929 Iopamidol 0 .STK-MED ONE 07/20 0858 DC 07/20 IV 0915 Acetaminophen 1,000 MG PREOP ONCALL 07/19 1900 DC PO 08/18 235 Gabapentin 200 MG PREOP ONCALL 07/19 190 DC PO 08/18 2359 Lactated Ringer's 1,000 ML PREOP ONCALL 07/19 1 900 DC IV 08/18 2359 Lidocaine HCl 2 ML PREOP ONCALL 07/19 1900 DC LOCAL 08/18 2359 Lidocaine HCl 2 ML PREOP ONCALL 07/19 1900 DC LOCAL 08/18 2359 Sodium Chloride 500 ML PREOP ONCALL 07/19 1900 DC IV 08/18 2359 Sodium Chloride 500 ML PREOP ONCALL 07/19 1900 DC IV 08/18 2359 Sodium Chloride 1,000 ML PREOP ONCALL 07/19 190 0 DC IV 08/18 2359 Sodium Chloride 5 ML ASDIR PRN 07/19 1900 DC IV 08/18 1859 Sodium Chloride 10 ML ASDIR PRN 07/19 1900 DC IV 08/18 1859 Sodium Chloride 250 ML ASDIR PRN 07/19 1900 DC IV 08/18 1859 Sodium Chloride 5 ML ASDIR PRN 07/19 1300 DC IV 08/18 1259 Sodium Chloride 10 ML ASDIR PRN 07/19 1300 DC IV 08/18 1259 Sodium Chloride 250 ML ASDIR PRN 07/19 1300 DC IV 08/18 1259 Apixaban 2.5 MG BID 07/19 1030 r 07/20 PO 08/18 1029 2035 Polyethylene Glycol 17 GM DAILY PRN PRN 07/19 1 000 AC PO 08/18 0959 Aspirin 81 MG DAILY 07/18 1700 AC 07/19 PO 08/17 1659 0901 Pantoprazole 40 MG BID AC 07/18 1630 AC 07/20 PO 08/17 1629 1638 Trazodone HCl 50 MG BEDTIME 07/17 2100 AC 07/20 PO 08/16 Nitroglycerin 0.5 INCH DAILY 07/14 1530 AC 07/01 9 TRANSDERM 08/13 1529 0901 Finasteride 5 MG DAILY 07/13 0900 AC 07/19 PO 08/12 0859 0901 Tamsulosin HCl 0.4 MG BID 07/12 2100 AC 07/20 PO 08/11 Docusate Sodium 100 MG BID 07/11 2100 AC 07/20 PO 08/10 Lactulose 20 GM BID PRN PRN 07/11 1530 AC 07/11 PO 08/10 1529 1820 Metoprolol Tartrate 25 MG BEDTIME 07/09 2100 AC 07/20 PO 08/08 Cyanocobalamin 500 MCG DAILY 07/09 1529 AC 07/01 9 PO 08/08 152 09 Folic Acid 1 MG DAILY 07/09 153 AC 07/19 PO 08/08 152 0901 Multivitamins 1 TAB DAILY 07/09 153 AC 07/19 PO 08/08 152 0901 Sterile Water 1.2 ML ASDIR PRN 07/09 153 AC IV 08/08 152 Thiamine HCl 100 MG DAILY 07/09 1529 AC 07/19 PO 08/08 152 0901 Ziprasidone 10 MG Q6H PRN PRN 07/09 153 AC IM 08/08 152 1631 24 hour I O ending at 0700: 07/21 0700 07/20 190 Intake Total 1215 Output Total 250 Balance 965 Intake, Other 1215 Number 2 Bowel Movements Number 0 Incontinent Voids Number Voids 1 Output, Urine 250 Vital Signs: Date Time Temp Pulse Resp B/P B/P Pulse O2 O2 F low FiO2 Mean Ox Delivery Rate 07/21 0734 36.5 77 20 114/79 0.0 100 Room air 07/21 0437 36.8 70 18 124/77 0.0 100 Room air 07/20 2326 36.5 65 18 111/55 0.0 92 Room air 07/20 2325 65 26 111/55 72 95 07/20 195 79 39 120/64 85 96 07/21 1951 36.8 80 20 120/64 0.0 92 Room air 07/20 1900 77 27 98 07/20 1609 36.5 81 24 112/58 0.0 93 Room air PATIENT WEIGHT: Weight (lb): 184 Weight (oz): Weight (kg): 83.461 Physical Exam General appearance: alert, awake, oriented, no a cute distress Head/Eyes: atraumatic, clear cornea Neck: no JVD Cardiovascular: CV assessment: irregularly irregular Respiratory: clear to auscultation, no distress Abdomen: soft, non-tender, normal bowel sounds, no distention Genitourinary: no flank pain, no medina Lower extremity: LE assessment: no edema Musculoskeletal: normal inspection Neuro/HAND COLLATOR: alert, normal speech Skin: poor skin turgor Ulcer: Type/cause: arterial Duration: chronic Location: foot Laterality: left Stage: 3 Psychiatry: unable to evaluate Results Radiology data: Recent Impressions: RADIOLOGY - XR CHEST 1 V 07/20 1132 Report Impression - Status: SIGNED Entered: 07/20/2021 1145 IMPRESSION: There is no radiographic evidence of acute disea se. Impression By: [email or web address] - Kong Cervantes M.D. Diagnosis, Assessment Plan Free Text DxA P Notes Free Text DxA P Notes: 85 YO male with PMHx of HTN, PAF on chronic anticoagulation, and PAD with prior vascular interventions who is admitted w ith leg pain and swelling. Found to be anemic with positive for occult blood. Cardiolog y is consulted to evaluate if anticogulation can be discontinued given anemia and possible GI bleed. 1. Chronic atrial fibrillation - rate controlled s/p Watchman procedure refusing telemetry continue BB as long as BP stable [id number] score 5 HAS-BLED score 4 Cleared by GI to start AC Eliquis 2.5 mg BID, ASA 81 mg daily RANDOLPH in 6 weeks to confirm complete occlusion of LIZETTE, then will DC Eliquis 2. PAD with prior vascular interventions/foot ul cers Vascular surgery and podiatry onboard Discussed with Dr. Oakley - he is ok for Eliquis + baby ASA without Plavix 3. Hypertension BP stable continue metoprolol 4. 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 Colonoscopy showed nonbleeding external and internal hemorrhoids and diverticulosis in the sigmoid colon and descending colon CV status stable NOK: daughter Judie ([phone]) Electronically Signed by Marlen John NP on 0 07/21/21 at 1312 Electronically Signed by Antonina Day MD on at 2152 RPT #:[id number] END OF REPORT 2021-07-21 07:49:00-00:00 [facility] ([facility] Rehab Progress Note REPORT#:[id number] REPORT STATUS: Signed DATE:07/21/21 TIME: 0749 PATIENT: KAYLYNN MISTRY UNIT #: [id number] ROOM/BED: [address]: 35 AGE: 85 SEX: M ATTEND: Vinnie Garcia MD ADM AUTHOR: aHrish Garcia * ALL edits or amendments must be made on the [employer]/computer document * Subjective Chief complaint: Rehab follow-up Status post watchman placement 07/20 NAD Easily distracted, easily agitated Denies WALTERS/N/V/D/CP 14 systems reviewed and neg. except that above. Objective General VS: Vital Signs: Date Time Temp Pulse Resp B/P B/P Pulse O2 O2 F low FiO2 Mean Ox Delivery Rate 07/21 0734 97.7 77 20 114/79 0.0 100 Room air 07/21 0437 98.2 70 18 124/77 0.0 100 Room air 07/20 2326 97.7 65 18 111/55 0.0 92 Room air 07/20 2325 65 26 111/55 72 95 07/20 1952 79 39 120/64 85 96 07/20 1952 98.2 80 20 120/64 0.0 92 Room air 07/20 1900 77 27 98 07/20 1609 97.7 81 24 112/58 0.0 93 Room air PATIENT WEIGHT: Weight (lb): 184 Weight (oz): Weight (kg): 83.461 Medications: Active Meds + DC'd Last 24 Hrs Sodium Chloride (SODIUM CHLORIDE 0.9%) 250 ML DIR PRN IV (DC) Iopamidol (ISOVUE-370 100ML) 0 .STK-MED ONE IV ( DC) Acetaminophen (TYLENOL EXTRA STRENGTH) 1,000 MG PREOP ONCALL PO (DC) Gabapentin (NEURONTIN) 200 MG PREOP ONCALL PO (D C) Lactated Ringer's (LACTATED RINGERS) 1,000 ML NM EOP ONCALL IV (DC) Lidocaine HCl (LIDOCAINE HCL/PF) 2 ML PREOP ONCA LL LOCAL (DC) Lidocaine HCl (LIDOCAINE HCL/PF) 2 ML PREOP ONCA LL LOCAL (DC) Sodium Chloride (SODIUM CHLORIDE 0.9%) 500 ML NM EOP ONCALL IV (DC) Sodium Chloride (SODIUM CHLORIDE 0.9%) 500 ML NM EOP ONCALL IV (DC) Sodium Chloride (SODIUM CHLORIDE 0.9%) 1,000 ML PREOP ONCALL IV (DC) Sodium Chloride (SODIUM CHLORIDE) 5 ML ASDIR PRN IV (DC) Sodium Chloride (SODIUM CHLORIDE) 10 ML ASDIR NM N IV (DC) Sodium Chloride (SODIUM CHLORIDE 0.9%) 250 ML DIR PRN IV (DC) Sodium Chloride (SODIUM CHLORIDE) 5 ML ASDIR PRN IV (DC) Sodium Chloride (SODIUM CHLORIDE) 10 ML ASDIR NM N IV (DC) Sodium Chloride (SODIUM CHLORIDE 0.9%) 250 ML DIR PRN IV (DC) Apixaban (ELIQUIS 2.5MG TABLET) 2.5 MG BID PO (r ) Polyethylene Glycol (MIRALAX) 17 GM DAILY PRN NM N PO Aspirin (ASPIRIN) 81 MG DAILY PO Pantoprazole (PROTONIX) 40 MG BID AC PO Trazodone HCl (DESYREL) 50 MG BEDTIME PO Nitroglycerin (NITRO-BID) 0.5 INCH DAILY TRANSDE RM Finasteride (PROSCAR) 5 MG DAILY PO Tamsulosin HCl (Flomax 0.4 mg) 0.4 MG BID PO Docusate Sodium (COLACE) 100 MG BID PO Lactulose (LACTULOSE) 20 GM BID PRN PRN PO Metoprolol Tartrate (LOPRESSOR) 25 MG BEDTIME PO Cyanocobalamin (Vitamin B-12 500 mcg tab) 500 MC G DAILY PO Folic Acid (FOLIC ACID) 1 MG DAILY PO Multivitamins (TAB-A-FINESSE) 1 TAB DAILY PO Sterile Water (WATER FOR INJECTION) 1.2 ML ASDIR PRN IV Thiamine HCl (THIAMINE HCL) 100 MG DAILY PO Ziprasidone (GEODON 20MG VIAL) 10 MG Q6H PRN PRN IM Functional Progress Functional progress: Weightbearing: No Restriction Ambulation Distance: 5' TO BSCHAIR Progression: Forward Backward Lateral, Right Lateral, Left Assistance Level: Supervision or Set-up [facility] Mobility: No Document Pain/Education: No Advanced Progression: No Effects of Treatment: Balance Improved Function Improved Tolerance increased Post TX Precautions: In Bed, rails Up Bed Alarm Freelance Programmer/App Developer Light in Reach Nursing Notified Review Plan of Care: Yes PT charges: Gait Training 71700 Gait Cmt: Pt SUPINE UPON ARRIVAL WITH NO C/O PA IN. Pt RELUCTANTLY AGREED TO TX. CLEARED BY RN. Pt IS UNPLEASANT AND EASILY AGITATED, DOESN'T TAKE REDIRECTION WELL. Pt PERFORMED SUPINE>SIT SUPV . STATIC SITTING MOD I. SIT>STAND AT STANDARD WALKER SUPV. Pt AMB 5' TO BSCHAIR SUPV. Pt DECLINED FURTHER AMB AND REMAINED IN BSCHAIR WITH ALL NEEDS MET, CALL CHAPA WITHIN REACH, FAMILY IN ROOM. RN INFORMED. If this is the patient's last treatment, this e ntry Start Time: 102 Stop Time: 103 Treatment Florentin e: ( minutes) 0:10 Completed by: Edwin Delong Conference/Supervising PT: Yes Supervising Therapist: Adrienen Arreguin BED MOBILITY: Yes Supine to Sit: Supervision or Set-up Scooting in bed: Supervision or Set-up TRANSFERS: Yes Sit to/from stand: Supervision or Set-up Physical Exam General appearance: alert, awake Psych: alert, normal affect, oriented x 3 HEENT: anicteric, sclera clear Neck: supple, no JVD Cardiovascular: regular rate rhythm, S1/S2 Respiratory: aerating well, clear bilaterally Abdomen: bowel sounds present, non-distended, so ft Skin: no rash, ulcers to hallux and 4th toe Ulcer: Type/cause: arterial Duration: chronic Location: foot Laterality: left Stage: 3 Musculoskeletal - general: Musculoskeletal - general: joints normal, charan l muscle mass Neuro/HAND COLLATOR: alert, oriented X 3, CNII-XII intact Results Findings/Data: Laboratory Tests: 07/21 07/20 0446 0832 Chemistry Sodium (134 - 147 mEq/L) 143 Potassium (3.4 - 5.0 mEq/L) 4.1 Chloride (100 - 108 mEq/L) 111 H Carbon Dioxide (21 - 33 mEq/l) 25 Anion Gap (0 - 20) 11 BUN (7 - 18 mg/dL) 16 Creatinine (0.6 - 1.3 mg/dL) 1.0 Glomerular Filtr Rate (70 - 80) 71.0 Glucose (70 - 110 mg/dL) 128 H Calcium (8.0 - 10.5 mg/dL) 8.5 Coagulation Activated Coag Time (74 - 137 SEC) 285 H Diagnosis, Assessment Plan Free Text A P: Generalized weakness Impaired mobility and gait Anemia PAD Ulcerations toes 1 and 4 left foot Hypertension Atrial fibrillation Alcohol use Plan: Continue PT/OT Out of bed to chair Work on strength, bed mobility, transfers, gait Increase endurance Fall precautions Monitor p.o. intake and nutrition Strict decubitus precautions Continue wound care and antibiotics Psych on case Going for EGD/colonoscopy today for + FOBT and w orsening anemia Advance therapies as tolerated IRF consulted Pt not working well with therapy S/p EGD and colonoscopy Found to have gastritis esophagitis and some div erticulosis but no bleeding Will wait for GI clearance before starting antic oagulation and antiplatelets S/p watchman Advance therapies as tolerated Total time was 35 minutes > 50% with patient per forming physical examination, discussing plan of care, goals, therapies, progr ess, medications, labs. All questions answered Rehab attestation: . Electronically Signed by Harish Garcia on 0 07/21/21 at 1651 RPT #:[id number] END OF REPORT 2021-07-21 06:24:00-00:00 [facility] ([facility]) Progress Note REPORT#:[id number] REPORT STATUS: Signed DATE:07/21/21 TIME: 623 PATIENT: KAYLYNN MISTRY UNIT #: [id number] ROOM/BED: [place] [address] : 35 AGE: 86 SEX: M ATTEND: Melida Garcia MD ADM AUTHOR: Lucas Kan * ALL edits or amendments must be made on the [employer]/computer document * Objective General VS/I O Last Documented: Result Date Time Pulse Ox 100 07/21 436 B/P 124/77 07/21 436 B/P Mean 0.0 07/21 436 O2 Delivery Room air 07/21 436 Temp 36.8 07/21 436 Pulse 70 07/21 043 Resp 18 07/21 436 O2 Flow Rate 0 07/15 1525 24 hour I O ending at 0700: 07/21 0700 07/20 1900 Intake Total 1215 Output Total 250 Balance 965 Intake, Other 1215 Number 2 Bowel Movements Number 0 Incontinent Voids Number Voids 1 Output, Urine 250 PATIENT WEIGHT: Weight (lb): 184 Weight (oz): Weight (kg): 83.461 Medications: Active Meds + DC'd Last 24 Hrs Sodium Chloride (SODIUM CHLORIDE 0.9%) 250 ML DIR PRN IV (DC) Iopamidol (ISOVUE-370 100ML) 0 .STK-MED ONE IV ( DC) Heparin Sodium (HEPARIN SODIUM) 0 .STK-MED ONE . ROUTE (DC) Bupivacaine HCl (MARCAINE 0.5%) 0 .STK-MED ONE . ROUTE (DC) Heparin Sodium/Sodium Chloride (HEPARIN 2,000 UN ITS/NS 1,000mL) 2,000 ML .STK-MED ONE IV (DC) Cefazolin Sodium (KEFZOL OR ANCEF) 0 .STK-MED ON E .ROUTE (DC) Heparin Sodium (HEPARIN SODIUM) 0 .STK-MED ONE . ROUTE (DC) Dexamethasone Sodium Phosphate (DECADRON) 0 .STK -MED ONE .ROUTE (DC) Fentanyl Citrate (SUBLIMAZE) 0 .STK-MED ONE .ROU TE (DC) Lidocaine HCl (XYLOCAINE) 0 .STK-MED ONE .ROUTE (DC) Ondansetron HCl (ZOFRAN) 0 .STK-MED ONE .ROUTE ( DC) Propofol (DIPRIVAN 200MG/20ML INJECTION) 20 ML . STK-MED ONE IV (DC) Rocuronium Kenneth (ZEMURON) 0 .STK-MED ONE IV ( DC) Succinylcholine Chloride (QUELICIN FLIPTOP) 0 .S TK-MED ONE IV (DC) Acetaminophen (TYLENOL EXTRA STRENGTH) 1,000 MG PREOP ONCALL PO (DC) Gabapentin (NEURONTIN) 200 MG PREOP ONCALL PO (D C) Lactated Ringer's (LACTATED RINGERS) 1,000 ML P REOP ONCALL IV (DC) Lidocaine HCl (LIDOCAINE HCL/PF) 2 ML PREOP ONCA LL LOCAL (DC) Lidocaine HCl (LIDOCAINE HCL/PF) 2 ML PREOP ONCA LL LOCAL (DC) Sodium Chloride (SODIUM CHLORIDE 0.9%) 500 ML NM EOP ONCALL IV (DC) Sodium Chloride (SODIUM CHLORIDE 0.9%) 500 ML NM EOP ONCALL IV (DC) Sodium Chloride (SODIUM CHLORIDE 0.9%) 1,000 ML PREOP ONCALL IV (DC) Sodium Chloride (SODIUM CHLORIDE) 5 ML ASDIR PRN IV (DC) Sodium Chloride (SODIUM CHLORIDE) 10 ML ASDIR NM N IV (DC) Sodium Chloride (SODIUM CHLORIDE 0.9%) 250 ML DIR PRN IV (DC) Sodium Chloride (SODIUM CHLORIDE) 5 ML ASDIR PRN IV (DC) Sodium Chloride (SODIUM CHLORIDE) 10 ML ASDIR NM N IV (DC) Sodium Chloride (SODIUM CHLORIDE 0.9%) 250 ML DIR PRN IV (DC) Apixaban (ELIQUIS 2.5MG TABLET) 2.5 MG BID PO (r ) Polyethylene Glycol (MIRALAX) 17 GM DAILY PRN NM N PO Aspirin (ASPIRIN) 81 MG DAILY PO Pantoprazole (PROTONIX) 40 MG BID AC PO Trazodone HCl (DESYREL) 50 MG BEDTIME PO Nitroglycerin (NITRO-BID) 0.5 INCH DAILY TRANSDE RM Finasteride (PROSCAR) 5 MG DAILY PO Tamsulosin HCl (Flomax 0.4 mg) 0.4 MG BID PO Docusate Sodium (COLACE) 100 MG BID PO Lactulose (LACTULOSE) 20 GM BID PRN PRN PO Metoprolol Tartrate (LOPRESSOR) 25 MG BEDTIME PO Cyanocobalamin (Vitamin B-12 500 mcg tab) 500 MC G DAILY PO Folic Acid (FOLIC ACID) 1 MG DAILY PO Multivitamins (TAB-A-FINESSE) 1 TAB DAILY PO Sterile Water (WATER FOR INJECTION) 1.2 ML ASDIR PRN IV Thiamine HCl (THIAMINE HCL) 100 MG DAILY PO Ziprasidone (GEODON 20MG VIAL) 10 MG Q6H PRN PRN IM Physical Exam General appearance: alert, awake, oriented Cardiovascular: CV assessment: regular rate and rhythm Murmur assessment: systolic murmur Respiratory: clear to auscultation, no distress Abdomen: soft, non-tender Extremities: moves all Neuro/HAND COLLATOR: alert, oriented X 3 Skin: dry Ulcer: Type/cause: arterial Duration: chronic Location: foot Laterality: left Stage: 3 Wound/incision: Location: Right groin suture removed by this AUDIO ENGINEER. No infect ion, bleeding, or hematoma. Findings/Data: Laboratory Tests: 07/20 07/20 0832 0732 Coagulation INR (0.8 - 1.2) 1.3 H PTT (Shira) (25.0 - 39.5 Seconds) 30.1 PT Patient/Control Mix (9.3 - 12.9 SECONDS) 14. 2 H Activated Coag Time (74 - 137 SEC) 285 H Recent Impressions: RADIOLOGY - XR CHEST 1 V 07/20 1132 Report Impression - Status: SIGNED Entered: 07/20/2021 1145 IMPRESSION: There is no radiographic evidence of acute disea se. Impression By: [email or web address] - Kong Cervantes M.D. Diagnosis, Assessment Plan Free Text A P: Patient with long standing p ersistent atrial fibrillation, CHADSVASC score of 5, and intolerance to long-term anticoagulation due multiple GI bleeds, being on dual antiplatelets for peripheral vascular disea se. Patient is s/p successful implantation of a 27mm Watchman device in the left atrial appendage. Patient tolerated the procedure without post-op complications. No thrombus was identified in the pre-/intra-op RANDOLPH. Postoperatively, chest x-ray is negative for any acute process. Post-op echo did not show a pericardial effusion. Patient ambulated without an y difficulty, and heart rate and blood pressure are stable. Right groin suture removed by this AUDIO ENGINEER. No infect ion, bleeding, or hematoma. Patient was provided with post-Watchman discharg e instructions. Patient is to follow up with PCP and slat basket maker in 1 to 2 we eks post discharge. Patient is to follow up with slat basket maker for th e 45-day RANDOLPH, and for anticoagulation recommendation. Patient is to continue Eliquis until the 45-day RANDOLPH. If the 45-day RANDOLPH shows a we ll-seated watchman device with no leaks or thrombus, then Eliquis will be discontinued and the patien t will continue aspirin. Duration of aspirin is lifelong. Post-Watchman discharge instructions given to th e patient who verbalized understanding, and patient w as instructed to report any complaints of chest pain , shortness of breath, lightheadedness, or dizzi ness to the slat basket maker. Electronically Signed by Lucas Kan 07/22/21 at 1016 Electronically Signed by Kyle Davies MD on 05/24 at 0946 RPT #:[id number] END OF REPORT 2021-07-20 21:52:00-00:00 [facility] REPORT#:[id number] REPORT STATUS: Signed DATE:07/20/21 TIME: 2151 PATIENT: KAYLYNN MISTRY UNIT #: [id number] [place] [facility] [place] [place] AGE: 85 SEX: M ATTEND: Vinnie Garcia MD ADM AUTHOR: Karsten Martines DPM * ALL edits or amendments must be made on the el ectronic/computer document * General VS/I O: Last Documented: Result Date Time Pulse Ox 92 07/21 1951 B/P 120/64 07/21 1951 B/P Mean 0.0 07/21 1951 O2 Delivery Room air 07/21 1951 Temp 36.8 07/21 1951 Pulse 80 07/21 1951 Resp 20 07/21 1951 O2 Flow Rate 0 07/15 1525 24 hour I O ending at 0700: 07/20 0700 07/19 1900 Intake Total 800 Output Total 200 Balance -200 800 Intake, Oral 800 Number Voids 3 Output, Urine 200 PATIENT WEIGHT: Weight (lb): 184 Weight (oz): Weight (kg): 83.461 Subjective Chief complaint: ulceration left Objective General VS: Last Documented: Result Date Time Pulse Ox 92 07/21 1951 B/P 120/64 07/21 1951 B/P Mean 0.0 07/21 1951 O2 Delivery Room air 07/21 1951 Temp 36.8 07/21 1951 Pulse 80 07/21 1951 Resp 07/20 O2 Flow Rate 0 07/15 1525 PATIENT WEIGHT: Weight (lb): 184 Weight (oz): Weight (kg): 83.461 Medications: Active Meds + DC'd Last 24 Hrs Sodium Chloride (SODIUM CHLORIDE 0.9%) 250 ML DIR PRN IV (DC) Iopamidol (ISOVUE-370 100ML) 0 .STK-MED ONE IV ( DC) Heparin Sodium (HEPARIN SODIUM) 0 .STK-MED ONE . ROUTE (DC) Bupivacaine HCl (MARCAINE 0.5%) 0 .STK-MED ONE . ROUTE (DC) Heparin Sodium/Sodium Chloride (HEPARIN 2,000 UN ITS/NS 1,000mL) 2,000 ML .STK-MED ONE IV (DC) Cefazolin Sodium (KEFZOL OR ANCEF) 0 .STK-MED ON E .ROUTE (DC) Heparin Sodium (HEPARIN SODIUM) 0 .STK-MED ONE . ROUTE (DC) Dexamethasone Sodium Phosphate (DECADRON) 0 .STK -MED ONE .ROUTE (DC) Fentanyl Citrate (SUBLIMAZE) 0 .STK-MED ONE .ROU TE (DC) Lidocaine HCl (XYLOCAINE) 0 .STK-MED ONE .ROUTE (DC) Ondansetron HCl (ZOFRAN) 0 .STK-MED ONE .ROUTE ( DC) Propofol (DIPRIVAN 200MG/20ML INJECTION) 20 ML . STK-MED ONE IV (DC) Rocuronium Kenneth (ZEMURON) 0 .STK-MED ONE IV ( DC) Succinylcholine Chloride (QUELICIN FLIPTOP) 0 .S TK-MED ONE IV (DC) Diphenhydramine HCl (BENADRYL) 50 MG ONCE ONE PO (DC) Prednisone (predniSONE) 50 MG ONCE ONE PO (DC) Prednisone (predniSONE) 50 MG ONCE ONE PO (DC) Acetaminophen (TYLENOL EXTRA STRENGTH) 1,000 MG PREOP ONCALL PO (DC) Gabapentin (NEURONTIN) 200 MG PREOP ONCALL PO (D C) Lactated Ringer's (LACTATED RINGERS) 1,000 ML NM EOP ONCALL IV (DC) Lidocaine HCl (LIDOCAINE HCL/PF) 2 ML PREOP ONCA LL LOCAL (DC) Lidocaine HCl (LIDOCAINE HCL/PF) 2 ML PREOP ONCA LL LOCAL (DC) Sodium Chloride (SODIUM CHLORIDE 0.9%) 500 ML NM EOP ONCALL IV (DC) Sodium Chloride (SODIUM CHLORIDE 0.9%) 500 ML NM EOP ONCALL IV (DC) Sodium Chloride (SODIUM CHLORIDE 0.9%) 1,000 ML PREOP ONCALL IV (DC) Sodium Chloride (SODIUM CHLORIDE) 5 ML ASDIR PRN IV (DC) Sodium Chloride (SODIUM CHLORIDE) 10 ML ASDIR NM N IV (DC) Sodium Chloride (SODIUM CHLORIDE 0.9%) 250 ML DIR PRN IV (DC) Sodium Chloride (SODIUM CHLORIDE) 5 ML ASDIR PRN IV (DC) Sodium Chloride (SODIUM CHLORIDE) 10 ML ASDIR NM N IV (DC) Sodium Chloride (SODIUM CHLORIDE 0.9%) 250 ML DIR PRN IV (DC) Apixaban (ELIQUIS 2.5MG TABLET) 2.5 MG BID PO (r ) Polyethylene Glycol (MIRALAX) 17 GM DAILY PRN NM N PO Aspirin (ASPIRIN) 81 MG DAILY PO Pantoprazole (PROTONIX) 40 MG BID AC PO Trazodone HCl (DESYREL) 50 MG BEDTIME PO Nitroglycerin (NITRO-BID) 0.5 INCH DAILY TRANSDE RM Finasteride (PROSCAR) 5 MG DAILY PO Tamsulosin HCl (Flomax 0.4 mg) 0.4 MG BID PO Docusate Sodium (COLACE) 100 MG BID PO Lactulose (LACTULOSE) 20 GM BID PRN PRN PO Metoprolol Tartrate (LOPRESSOR) 25 MG BEDTIME PO Cyanocobalamin (Vitamin B-12 500 mcg tab) 500 MC G DAILY PO Folic Acid (FOLIC ACID) 1 MG DAILY PO Multivitamins (TAB-A-FINESSE) 1 TAB DAILY PO Sterile Water (WATER FOR INJECTION) 1.2 ML ASDIR PRN IV Thiamine HCl (THIAMINE HCL) 100 MG DAILY PO Ziprasidone (GEODON 20MG VIAL) 10 MG Q6H PRN PRN IM I O: 24 hour I O ending at 0700: 07/20 0700 07/19 1900 Intake Total 800 Output Total 200 Balance -200 800 Intake, Oral 800 Number Voids 3 Output, Urine 200 Nutrition assessment: The data set between the solid lines has been im ported from the dietitian's assessment. Any exceptions have been noted under Provider comments. BMI Calculated: 27.2 Nutrition related diagnosis: Nutrition diagnosis details: Nutrition problem: Nutrition etiology: Nutrition signs and symptoms: Nutrition prescription: Dietitian name: Assessment completed: Provider comments on imported dietitian assessme nt: Physical Exam LE vascular pulse assess: 1+ R posterior tibialis, 1+ L posterior tibialis , 1+ R dorsalis pedis, 1+ L dorsalis pedis Capillary refill: Capillary refill (in seconds): < 3 seconds Right foot, < 3 seconds Left foot Reflexes: Achilles: 2+ Foot: vascular deficit Musculoskeletal: Musculoskeletal: decreased ROM Neuro/HAND COLLATOR: oriented X 3, no motor deficits Skin: ecchymosis (ecchymosis of left foot), dry Ulcer: Location: foot Type: arterial Appearance: necrotic tissue, Ulcerations to the dorsal 4th toe and plantar hallux have dry stable escha r no localized skin or soft tissue infection noted. Drainage: without odor Results Findings/Data: Laboratory Tests: 07/20 07/20 07/20 0832 0732 0530 Chemistry Sodium (134 - 147 mEq/L) 141 Potassium (3.4 - 5.0 mEq/L) 4.9 Chloride (100 - 108 mEq/L) 110 H Carbon Dioxide (21 - 33 mEq/l) 23 Anion Gap (0 - 20) 13 BUN (7 - 18 mg/dL) 15 Creatinine (0.6 - 1.3 mg/dL) 0.9 Glomerular Filtr Rate (70 - 80) 80.2 H Glucose (70 - 110 mg/dL) 141 H Calcium (8.0 - 10.5 mg/dL) 9.0 Coagulation INR (0.8 - 1.2) 1.3 H PTT (Shira) (25.0 - 39.5 Seconds) 30.1 PT Patient/Control Mix (9.3 - 12.9 SECONDS) 14. 2 H Activated Coag Time (74 - 137 SEC) 285 H Hematology WBC (4.5 - 11.0 x10 3/uL) 8.0 RBC (4.00 - 5.60 x10 6/uL) 3.38 L Hgb (12.5 - 16.9 g/dL) 10.4 L Hct (37.5 - 50.7 %) 33.3 L MCV (81.0 - 99.0 fL) 98.5 MCH (27.0 - 33.0 pg) 30.8 MCHC (33.0 - 37.0 g/dL) 31.2 L RDW (11.5 - 14.5 %) 16.3 H Plt Count (150 - 400 x10 3/uL) 342 MPV (7.0 - 9.0 fL) 9.8 H Neut % (Auto) (56.0 - 77.0 %) 84.9 H Lymph % (Auto) (14.0 - 32.0 %) 13.1 L Person % (Auto) (4.8 - 9.0 %) 1.1 L Eos % (Auto) (0.3 - 3.7 %) 0.0 L Baso % (Auto) (0.0 - 2.0 %) 0.3 Neut # (Auto) (2.0 - 7.6 x10 3/uL) 6.79 Lymph # (Auto) (1.0 - 3.8 x10 3/uL) 1.05 Person # (Auto) (0.1 - 0.8 x10 3/uL) 0.09 L Eos # (Auto) (0.0 - 0.2 x10 3/uL) 0.00 Baso # (Auto) (0.0 - 0.2 x10 3/uL) 0.02 Abs Immat Gran (auto) (0.00 - 0.03 x10 3/uL) 0. 05 H Add Manual Diff NO Immature Gran % (0.0 - 2.0 %) 0.6 Nucleated RBC % (0 - 0 %) 0.0 Nucleated RBCs # (Man) (0.0 - 0.1 x10 3/uL) 0.0 0 Recent Impressions: RADIOLOGY - XR CHEST 1 V 07/20 1132 Report Impression - Status: SIGNED Entered: 07/20/2021 1145 IMPRESSION: There is no radiographic evidence of acute disea se. Impression By: [email or web address] - Kong Cervantes M.D. Results: labs reviewed Diagnosis, Assessment Plan Free Text A P: PAD b/l LE s/p recent revascularization Ulcerations toes 1 and 4 left foot with dry, sta ble eschar Localized edema b/l LE Injury left foot BETADIEN WTD DAILY LEFT FOOT WBAT VASCULAR EVAL PAIN CONTROL PT/OT WILL FOLLOW Electronically Signed by Karsten Martines DPM on 06/21 at 0905 RPT #:[id number] END OF REPORT 2021-07-20 17:08:00-00:00 [facility] [place] Hospitalist Progress Note REPORT#:[id number] REPORT STATUS: Signed DATE:07/20/21 TIME: 1708 PATIENT: KAYLYNN MISTYR UNIT #: [id number] ROOM/BED: [place] [id number] : 35 AGE: 85 SEX: M ATTEND: Vinnie Garcia MD ADM AUTHOR: Santiago Garcia MD * ALL edits or amendments must be made on the el ectronic/computer document * Subjective Chief complaint: Pt seen and exam'd. Events noted. Following up l eg pain, confusion. Less confusion/ agitation today. Had Watchman placed today. Review of Systems All systems rev neg: except as marked Objective General VS/I O: Vital Signs: Date Time Temp Pulse Resp B/P B/P Pulse O2 O2 F low FiO2 Mean Ox Delivery Rate 07/20 1609 36.5 81 24 112/58 0.0 93 Room air 07/20 0524 36.4 67 16 130/81 97.4 99 07/20 0008 36.5 68 16 125/82 96.1 98 07/19 2042 36.9 64 14 132/88 102.9 96 24 hour I O ending at 0700: 07/20 0700 07/19 1900 Intake Total 800 Output Total 200 Balance -200 800 Intake, Oral 800 Number Voids 3 Output, Urine 200 PATIENT WEIGHT: Weight (lb): 184 Weight (oz): Weight (kg): 83.461 Medications: Active Meds + DC'd Last 24 Hrs Sodium Chloride (SODIUM CHLORIDE 0.9%) 250 ML DIR PRN IV (DC) Iopamidol (ISOVUE-370 100ML) 0 .STK-MED ONE IV ( DC) Heparin Sodium (HEPARIN SODIUM) 0 .STK-MED ONE . ROUTE (DC) Bupivacaine HCl (MARCAINE 0.5%) 0 .STK-MED ONE . ROUTE (DC) Heparin Sodium/Sodium Chloride (HEPARIN 2,000 UN ITS/NS 1,000mL) 2,000 ML .STK-MED ONE IV (DC) Cefazolin Sodium (KEFZOL OR ANCEF) 0 .STK-MED ON E .ROUTE (DC) Heparin Sodium (HEPARIN SODIUM) 0 .STK-MED ONE . ROUTE (DC) Dexamethasone Sodium Phosphate (DECADRON) 0 .STK -MED ONE .ROUTE (DC) Fentanyl Citrate (SUBLIMAZE) 0 .STK-MED ONE .ROU TE (DC) Lidocaine HCl (XYLOCAINE) 0 .STK-MED ONE .ROUTE (DC) Ondansetron HCl (ZOFRAN) 0 .STK-MED ONE .ROUTE ( DC) Propofol (DIPRIVAN 200MG/20ML INJECTION) 20 ML . STK-MED ONE IV (DC) Rocuronium Kenneth (ZEMURON) 0 .STK-MED ONE IV ( DC) Succinylcholine Chloride (QUELICIN FLIPTOP) 0 .S TK-MED ONE IV (DC) Diphenhydramine HCl (BENADRYL) 50 MG ONCE ONE PO (DC) Prednisone (predniSONE) 50 MG ONCE ONE PO (DC) Prednisone (predniSONE) 50 MG ONCE ONE PO (DC) Acetaminophen (TYLENOL EXTRA STRENGTH) 1,000 MG PREOP ONCALL PO (DC) Gabapentin (NEURONTIN) 200 MG PREOP ONCALL PO (D C) Lactated Ringer's (LACTATED RINGERS) 1,000 ML NM EOP ONCALL IV (DC) Lidocaine HCl (LIDOCAINE HCL/PF) 2 ML PREOP ONCA LL LOCAL (DC) Lidocaine HCl (LIDOCAINE HCL/PF) 2 ML PREOP ONCA LL LOCAL (DC) Sodium Chloride (SODIUM CHLORIDE 0.9%) 500 ML NM EOP ONCALL IV (DC) Sodium Chloride (SODIUM CHLORIDE 0.9%) 500 ML NM EOP ONCALL IV (DC) Sodium Chloride (SODIUM CHLORIDE 0.9%) 1,000 ML PREOP ONCALL IV (DC) Sodium Chloride (SODIUM CHLORIDE) 5 ML ASDIR PRN IV (DC) Sodium Chloride (SODIUM CHLORIDE) 10 ML ASDIR NM N IV (DC) Sodium Chloride (SODIUM CHLORIDE 0.9%) 250 ML DIR PRN IV (DC) Prednisone (predniSONE) 50 MG ONCE ONE PO (DC) Sodium Chloride (SODIUM CHLORIDE) 5 ML ASDIR PRN IV (DC) Sodium Chloride (SODIUM CHLORIDE) 10 ML ASDIR NM N IV (DC) Sodium Chloride (SODIUM CHLORIDE 0.9%) 250 ML DIR PRN IV (DC) Apixaban (ELIQUIS 2.5MG TABLET) 2.5 MG BID PO (r ) Polyethylene Glycol (MIRALAX) 17 GM DAILY PRN NM N PO Aspirin (ASPIRIN) 81 MG DAILY PO Pantoprazole (PROTONIX) 40 MG BID AC PO Trazodone HCl (DESYREL) 50 MG BEDTIME PO Nitroglycerin (NITRO-BID) 0.5 INCH DAILY TRANSDE RM Finasteride (PROSCAR) 5 MG DAILY PO Tamsulosin HCl (Flomax 0.4 mg) 0.4 MG BID PO Docusate Sodium (COLACE) 100 MG BID PO Lactulose (LACTULOSE) 20 GM BID PRN PRN PO Metoprolol Tartrate (LOPRESSOR) 25 MG BEDTIME PO Cyanocobalamin (Vitamin B-12 500 mcg tab) 500 MC G DAILY PO Folic Acid (FOLIC ACID) 1 MG DAILY PO Multivitamins (TAB-A-FINESSE) 1 TAB DAILY PO Sterile Water (WATER FOR INJECTION) 1.2 ML ASDIR PRN IV Thiamine HCl (THIAMINE HCL) 100 MG DAILY PO Ziprasidone (GEODON 20MG VIAL) 10 MG Q6H PRN PRN IM Physical Exam General appearance: alert, awake, no acu te distress, pleasant, conversational, no respiratory distress Head/Eyes: atraumatic, EOMI, normocephalic, PERR L ENT: moist mucosal membranes Neck: full range of motion, non-tender Cardiovascular: normal heart sounds, regular rat e rhythm Respiratory: aerating well, clear to auscultatio n Abdomen: non-tender, normal bowel sounds, soft, no distention Genitourinary: no bladder distention Extremities: no clubbing, no cyanosis, no edema Skin: no rash Ulcer: Type/cause: arterial Duration: chronic Location: foot Laterality: left Stage: 3 Results Findings/Data: Laboratory Tests 07/20 0530 Chemistry Sodium (134 - 147 mEq/L) 141 Potassium (3.4 - 5.0 mEq/L) 4.9 Chloride (100 - 108 mEq/L) 110 H Carbon Dioxide (21 - 33 mEq/l) 23 Anion Gap (0 - 20) 13 BUN (7 - 18 mg/dL) 15 Creatinine (0.6 - 1.3 mg/dL) 0.9 Glomerular Filtr Rate (70 - 80) 80.2 H Glucose (70 - 110 mg/dL) 141 H Calcium (8.0 - 10.5 mg/dL) 9.0 Laboratory Tests 07/20 07/20 0832 0732 Coagulation INR (0.8 - 1.2) 1.3 H PTT (Shira) (25.0 - 39.5 Seconds) 30.1 PT Patient/Control Mix (9.3 - 12.9 SECONDS) 14 .2 H Activated Coag Time (74 - 137 SEC) 285 H Laboratory Tests 07/20 0530 Hematology WBC (4.5 - 11.0 x10 3/uL) 8.0 RBC (4.00 - 5.60 x10 6/uL) 3.38 L Hgb (12.5 - 16.9 g/dL) 10.4 L Hct (37.5 - 50.7 %) 33.3 L MCV (81.0 - 99.0 fL) 98.5 MCH (27.0 - 33.0 pg) 30.8 MCHC (33.0 - 37.0 g/dL) 31.2 L RDW (11.5 - 14.5 %) 16.3 H Plt Count (150 - 400 x10 3/uL) 342 MPV (7.0 - 9.0 fL) 9.8 H Neut % (Auto) (56.0 - 77.0 %) 84.9 H Lymph % (Auto) (14.0 - 32.0 %) 13.1 L Person % (Auto) (4.8 - 9.0 %) 1.1 L Eos % (Auto) (0.3 - 3.7 %) 0.0 L Baso % (Auto) (0.0 - 2.0 %) 0.3 Neut # (Auto) (2.0 - 7.6 x10 3/uL) 6.79 Lymph # (Auto) (1.0 - 3.8 x10 3/uL) 1.05 Person # (Auto) (0.1 - 0.8 x10 3/uL) 0.09 L Eos # (Auto) (0.0 - 0.2 x10 3/uL) 0.00 Baso # (Auto) (0.0 - 0.2 x10 3/uL) 0.02 Abs Immat Gran (auto) (0.00 - 0.03 x10 3/uL) 0. 05 H Add Manual Diff NO Immature Gran % (0.0 - 2.0 %) 0.6 Nucleated RBC % (0 - 0 %) 0.0 Nucleated RBCs # (Man) (0.0 - 0.1 x10 3/uL) 0.0 0 Radiology data: Recent Impressions: RADIOLOGY - XR CHEST 1 V 07/20 1132 Report Impression - Status: SIGNED Entered: 07/20/2021 1145 IMPRESSION: There is no radiographic evidence of acute disea se. Impression By: [email or web address] - Kong Cervantes M.D. Diagnosis, Assessment Plan Free Text DxA P Notes Free text DxA P notes: 1. Left lower extremity swelling. 2. Peripheral vascular disease. 3. Atrial fibrillation. 4. Foot wounds. 5. Questionable history of syncope. 6. Alcohol use. 7. Benign prostatic hypertrophy. 8. Hypertension. 9. Likely dementia. Improving mentation, continue to monitor. Pain/ discomfort related to reperfusion. Empiric abx. Swelling improving. Continue med tx. Monitor BP/ HR. Foot wound care. Appreciate Psych, Vasc, Pod input. Start PT/OT. CM to assist with dc planning. Urinary symptoms possible related to BPH; Add Av odart and increase Flomax. d/w dtr, all questions answered. 07/13/2021 Patient with left leg swelli ng, peripheral vascular disease, A. fib, foot wounds , BPH, hypertension Mental status much better today He states he feels depressed and misses his who 12 years ago Psych has been consulted PT/OT on board Vitals reviewed acceptable Labs reviewed acceptable Encouraged PT/OT PMNR consulted as patient st ates that he lives at home and wants to return back home when better 07/14/21 doing ok vitals reviewed-some hypotension today stop losartan and amlodipine Labs reviewed-Hb dropped stool OB requested and reported positive GI consulted hold xarelto and asa and plavix cardio consulted for further recommendations patient has 2 daughters, both son in law at bedside today and patient in their presence okaying rehab [address] [facility] rehab consulted PMNR help appreciated CM to help with rehab arrangement, preferable pr ivate bed/not a shared room repeat labs in am 07/15/21 doing ok vitals reviewed-BP low labs reviewed-Hb lower than yesterday holding xarelto and ASA and plavix cardio has evaluated the patient GI help appreciated EGD/Colonoscopy in plan Iron studies requested will give one unit PRBC today as anemic and hypo tensive PMNR following, will dc to rehab once medically cleared 07/16/2021 Patient is doing okay Vitals reviewed blood pressure still low Labs reviewed hemoglobin better after transfusio n Still aspirin Plavix and Xarelto is on hold GI help appreciated S/p EGD and colonoscopy Found to have gastritis esophagitis and some div erticulosis but no bleeding Will wait for GI clearance before starting antic oagulation and antiplatelets Waiting on cardio recommendations which ones to start Discharge to inpatient rehab once medically ceci red 07/17/21 doing ok wants to go home nurse present in room during visit cardio has discussed with daughter, needs LAP off antiplatelets for now for dropping Hb Hb better now will get GI opinion about restarting antiplatele ts then he needs rehab, patient agreed infront of f amily but not wanting it now will discuss again once medically ready 07/18/21 doing ok sitting up in chair better mood today and understanding his illnesse s vitals reviewed-BP lowinsh Labs-no new today Hb was 10 yesterday antiplatlets and anticoag still on hold cardio waiting on GI to ok to restart d/w GI going for LAP occlusion on as cardio note, not scheduled on chart yet am labs requested 07/19/21 doing ok vitals reviewed-acceptable Labs reviewed-acceptable restarted anticoag and antiplt eliquis and ASA HB holding ok for now cardio EP doing wathcman tomorrow COVID tested-negative am labs requested 07/20/21 Had Watchman placement. Continue postop care. PT eval. Hbg holding; watch for s/sx bleeding Electronically Signed by Santiago Garcia MD on at 1710 RPT #:[id number] END OF REPORT 2021-07-20 11:37:00-00:00 [facility] Note REPORT#:[id number] REPORT STATUS: Signed DATE:07/20/21 TIME: 1137 PATIENT: KAYLYNN MISTRY UNIT #: [id number] ROOM/BED: 3344-1 : 35 AGE: 85 SEX: M ATTEND: Vinnie Garcia MD ADM AUTHOR: Henry Douglas * ALL edits or amendments must be made on the el [employer]/computer document * Henry Douglas/20/22 1137: Subjective Comments: s/p watchman. Feeling ok. No abdominal pain, lindsay sea, or vomiting Review of Systems Additional notes: 10 point ros neg except hpi Objective General VS/I O: Last Documented: Result Date Time Pulse Ox 99 07/21 523 B/P 130/81 07/20 05 B/P Mean 97.4 07/20 0524 Temp 97.5 07/20 0524 Pulse 67 07/20 0524 Resp 16 07/20 05 O2 Delivery Room air 07/19 1639 O2 Flow Rate 0 07/15 1525 24 hour I O ending at 0700: 07/20 0700 07/19 1900 Intake Total 800 Output Total 200 Balance -200 800 Intake, Oral 800 Number Voids 3 Output, Urine 200 PATIENT WEIGHT: Weight (lb): 184 Weight (oz): Weight (kg): 83.461 Medications: Active Meds + DC'd Last 24 Hrs Sodium Chloride (SODIUM CHLORIDE 0.9%) 250 ML DIR PRN IV Iopamidol (ISOVUE-370 100ML) 0 .STK-MED ONE IV ( DC) Heparin Sodium (HEPARIN SODIUM) 0 .STK-MED ONE . ROUTE (DC) Bupivacaine HCl (MARCAINE 0.5%) 0 .STK-MED ONE . ROUTE (DC) Heparin Sodium/Sodium Chloride (HEPARIN 2,000 UN ITS/NS 1,000mL) 2,000 ML .STK-MED ONE IV (DC) Cefazolin Sodium (KEFZOL OR ANCEF) 0 .STK-MED ON E .ROUTE (DC) Heparin Sodium (HEPARIN SODIUM) 0 .STK-MED ONE . ROUTE (DC) Dexamethasone Sodium Phosphate (DECADRON) 0 .STK -MED ONE .ROUTE (DC) Fentanyl Citrate (SUBLIMAZE) 0 .STK-MED ONE .ROU TE (DC) Lidocaine HCl (XYLOCAINE) 0 .STK-MED ONE .ROUTE (DC) Ondansetron HCl (ZOFRAN) 0 .STK-MED ONE .ROUTE ( DC) Propofol (DIPRIVAN 200MG/20ML INJECTION) 20 ML . STK-MED ONE IV (DC) Rocuronium Kenneth (ZEMURON) 0 .STK-MED ONE IV ( DC) Succinylcholine Chloride (QUELICIN FLIPTOP) 0 .S TK-MED ONE IV (DC) Diphenhydramine HCl (BENADRYL) 50 MG ONCE ONE PO (DC) Prednisone (predniSONE) 50 MG ONCE ONE PO (DC) Prednisone (predniSONE) 50 MG ONCE ONE PO (DC) Acetaminophen (TYLENOL EXTRA STRENGTH) 1,000 MG PREOP ONCALL PO (CKD) Gabapentin (NEURONTIN) 200 MG PREOP ONCALL PO (C KD) Lactated Ringer's (LACTATED RINGERS) 1,000 ML NM EOP ONCALL IV Lidocaine HCl (LIDOCAINE HCL/PF) 2 ML PREOP ONCA LL LOCAL Lidocaine HCl (LIDOCAINE HCL/PF) 2 ML PREOP ONCA LL LOCAL Sodium Chloride (SODIUM CHLORIDE 0.9%) 500 ML NM EOP ONCALL IV Sodium Chloride (SODIUM CHLORIDE 0.9%) 500 ML NM EOP ONCALL IV Sodium Chloride (SODIUM CHLORIDE 0.9%) 1,000 ML PREOP ONCALL IV Sodium Chloride (SODIUM CHLORIDE) 5 ML ASDIR PRN IV Sodium Chloride (SODIUM CHLORIDE) 10 ML ASDIR NM N IV Sodium Chloride (SODIUM CHLORIDE 0.9%) 250 ML DIR PRN IV Prednisone (predniSONE) 50 MG ONCE ONE PO (DC) Sodium Chloride (SODIUM CHLORIDE) 5 ML ASDIR PRN IV Sodium Chloride (SODIUM CHLORIDE) 10 ML ASDIR NM N IV Sodium Chloride (SODIUM CHLORIDE 0.9%) 250 ML DIR PRN IV Apixaban (ELIQUIS 2.5MG TABLET) 2.5 MG BID PO ( r) Polyethylene Glycol (MIRALAX) 17 GM DAILY PRN NM N PO Aspirin (ASPIRIN) 81 MG DAILY PO Pantoprazole (PROTONIX) 40 MG BID AC PO Trazodone HCl (DESYREL) 50 MG BEDTIME PO Nitroglycerin (NITRO-BID) 0.5 INCH DAILY TRANSDE RM Finasteride (PROSCAR) 5 MG DAILY PO Tamsulosin HCl (Flomax 0.4 mg) 0.4 MG BID PO Docusate Sodium (COLACE) 100 MG BID PO Lactulose (LACTULOSE) 20 GM BID PRN PRN PO Metoprolol Tartrate (LOPRESSOR) 25 MG BEDTIME P O Cyanocobalamin (Vitamin B-12 500 mcg tab) 500 MC G DAILY PO Folic Acid (FOLIC ACID) 1 MG DAILY PO Multivitamins (TAB-A-FINESSE) 1 TAB DAILY PO Sterile Water (WATER FOR INJECTION) 1.2 ML ASDIR PRN IV Thiamine HCl (THIAMINE HCL) 100 MG DAILY PO Ziprasidone (GEODON 20MG VIAL) 10 MG Q6H PRN PRN IM Physical Exam General appearance: alert, awake HEENT: abnl conjunctiva/sclera, dry mucosal memb ranes Neck: decreased range of motion Cardiovascular: normal capillary refill, regular rate rhythm Respiratory: aerating well, symmetric expansion Abdomen: non-tender Extremities: decreased range of motion Musculoskeletal: decreased ROM Neuro/HAND COLLATOR: alert Skin: abnormal color, abnormal temperature, ecch ymosis Ulcer: Type/cause: arterial Duration: chronic Location: foot Laterality: left Stage: 3 Results Findings/Data: Laboratory Tests 07/20/21529: [Embedded Image Not Available] Laboratory Tests 07/20 529 Chemistry Sodium (134 - 147 mEq/L) 141 Potassium (3.4 - 5.0 mEq/L) 4.9 Chloride (100 - 108 mEq/L) 110 H Carbon Dioxide (21 - 33 mEq/l) 23 Anion Gap (0 - 20) 13 BUN (7 - 18 mg/dL) 15 Creatinine (0.6 - 1.3 mg/dL) 0.9 Glomerular Filtr Rate (70 - 80) 80.2 H Glucose (70 - 110 mg/dL) 141 H Calcium (8.0 - 10.5 mg/dL) 9.0 Laboratory Tests 07/20 07/20 0832 0732 Coagulation INR (0.8 - 1.2) 1.3 H PTT ([place]) (25.0 - 39.5 Seconds) 30.1 PT Patient/Control Mix (9.3 - 12.9 SECONDS) 14. 2 H Activated Coag Time (74 - 137 SEC) 285 H Laboratory Tests 07/20 529 Hematology WBC (4.5 - 11.0 x10 3/uL) 8.0 RBC (4.00 - 5.60 x10 6/uL) 3.38 L Hgb (12.5 - 16.9 g/dL) 10.4 L Hct (37.5 - 50.7 %) 33.3 L MCV (81.0 - 99.0 fL) 98.5 MCH (27.0 - 33.0 pg) 30.8 MCHC (33.0 - 37.0 g/dL) 31.2 L RDW (11.5 - 14.5 %) 16.3 H Plt Count (150 - 400 x10 3/uL) 342 MPV (7.0 - 9.0 fL) 9.8 H Neut % (Auto) (56.0 - 77.0 %) 84.9 H Lymph % (Auto) (14.0 - 32.0 %) 13.1 L Person % (Auto) (4.8 - 9.0 %) 1.1 L Eos % (Auto) (0.3 - 3.7 %) 0.0 L Baso % (Auto) (0.0 - 2.0 %) 0.3 Neut # (Auto) (2.0 - 7.6 x10 3/uL) 6.79 Lymph # (Auto) (1.0 - 3.8 x10 3/uL) 1.05 Person # (Auto) (0.1 - 0.8 x10 3/uL) 0.09 L Eos # (Auto) (0.0 - 0.2 x10 3/uL) 0.00 Baso # (Auto) (0.0 - 0.2 x10 3/uL) 0.02 Abs Immat Gran (auto) (0.00 - 0.03 x10 3/uL) 0. 05 H Add Manual Diff NO Immature Gran % (0.0 - 2.0 %) 0.6 Nucleated RBC % (0 - 0 %) 0.0 Nucleated RBCs # (Man) (0.0 - 0.1 x10 3/uL) 0.0 0 Laboratory Tests 07/19 1545 Serology SARS-CoV-2 Ag (Rapid) (Negative) Negative Diagnosis, Assessment Plan Free Text A P: worsening anemia FOBT+ delirium, improved chronic anticoagulation chronic antiplatelet therapy coagulopathy - monitor h/h, transfuse as needed - monitor for overt gi bleeding while on eliquis and aspirin - diet as tolerated - moderate but acceptable risk of bleeding with antiplatelet therapy/ anticoagulation in view of egd findings - continue with ppi bid - agree with cardiology plan of care - daily bowel regimen - s/p watchman procedure Alfredito Jerez H 07/20/21 3867: Attestations Physician Attestation Agree w/findings plan: I examined the patient and agree with the christine gs and plan as documented by Misael MORATAYA; Electronically Signed by Henry Douglas on at 1407 Electronically Signed by Alfredito Jerez MD on at 1438 RPT #:[id number] END OF REPORT 2021-07-20 11:03:00-00:00 [facility]L [facility] ([facility]) Cardiology Progress Note REPORT#:[id number] REPORT STATUS: Signed DATE:07/20/21 TIME: 1103 PATIENT: KAYLYNN MISTRY UNIT #: [id number] ROOM/BED: [place] [id number] : 35 AGE: 85 SEX: M ATTEND: Vinnie Garcia MD ADM AUTHOR: Katy Jack RESEARCH GEOLOGIST * ALL edits or amendments must be made on the [employer]/computer document * Subjective Chief complaint: s/p watchman procedure Objective General VS/I O: 24 hour I O ending at 0700: 07/20 0700 07/19 1900 Intake Total 800 Output Total 200 Balance -200 800 Intake, Oral 800 Number Voids 3 Output, Urine 200 Vital Signs: Date Time Temp Pulse Resp B/P B/P Pulse O2 O2 Flow FiO2 Mean Ox Delivery Rate 07/20 0524 36.4 67 16 130/81 97.4 99 07/20 0008 36.5 68 16 125/82 96.1 98 07/19 2042 36.9 64 14 132/88 102.9 96 07/19 1639 36.4 96 18 151/91 110.9 98 Room air 07/19 1202 36.5 86 18 99/61 73.8 100 Room air PATIENT WEIGHT: Weight (lb): 184 Weight (oz): Weight (kg): 83.461 Medications: Active Meds + DC'd Last 24 Hrs Sodium Chloride (SODIUM CHLORIDE 0.9%) 250 ML DIR PRN IV Iopamidol (ISOVUE-370 100ML) 0 .STK-MED ONE IV ( DC) Heparin Sodium (HEPARIN SODIUM) 0 .STK-MED ONE . ROUTE (DC) Bupivacaine HCl (MARCAINE 0.5%) 0 .STK-MED ONE . ROUTE (DC) Heparin Sodium/Sodium Chloride (HEPARIN 2,000 UN ITS/NS 1,000mL) 2,000 ML .STK-MED ONE IV (DC) Cefazolin Sodium (KEFZOL OR ANCEF) 0 .STK-MED ON E .ROUTE (DC) Heparin Sodium (HEPARIN SODIUM) 0 .STK-MED ONE . ROUTE (DC) Dexamethasone Sodium Phosphate (DECADRON) 0 .STK -MED ONE .ROUTE (DC) Fentanyl Citrate (SUBLIMAZE) 0 .STK-MED ONE .ROU TE (DC) Lidocaine HCl (XYLOCAINE) 0 .STK-MED ONE .ROUTE (DC) Ondansetron HCl (ZOFRAN) 0 .STK-MED ONE .ROUTE ( DC) Propofol (DIPRIVAN 200MG/20ML INJECTION) 20 ML . STK-MED ONE IV (DC) Rocuronium Kenneth (ZEMURON) 0 .STK-MED ONE IV ( DC) Succinylcholine Chloride (QUELICIN FLIPTOP) 0 .S TK-MED ONE IV (DC) Diphenhydramine HCl (BENADRYL) 50 MG ONCE ONE PO (DC) Prednisone (predniSONE) 50 MG ONCE ONE PO (DC) Prednisone (predniSONE) 50 MG ONCE ONE PO (DC) Acetaminophen (TYLENOL EXTRA STRENGTH) 1,000 MG PREOP ONCALL PO (CKD) Gabapentin (NEURONTIN) 200 MG PREOP ONCALL PO (C KD) Lactated Ringer's (LACTATED RINGERS) 1,000 ML NM EOP ONCALL IV Lidocaine HCl (LIDOCAINE HCL/PF) 2 ML PREOP ONCA LL LOCAL Lidocaine HCl (LIDOCAINE HCL/PF) 2 ML PREOP ONCA LL LOCAL Sodium Chloride (SODIUM CHLORIDE 0.9%) 500 ML NM EOP ONCALL IV Sodium Chloride (SODIUM CHLORIDE 0.9%) 500 ML NM EOP ONCALL IV Sodium Chloride (SODIUM CHLORIDE 0.9%) 1,000 ML PREOP ONCALL IV Sodium Chloride (SODIUM CHLORIDE) 5 ML ASDIR PRN IV Sodium Chloride (SODIUM CHLORIDE) 10 ML ASDIR NM N IV Sodium Chloride (SODIUM CHLORIDE 0.9%) 250 ML DIR PRN IV Prednisone (predniSONE) 50 MG ONCE ONE PO (DC) Sodium Chloride (SODIUM CHLORIDE) 5 ML ASDIR PRN IV Sodium Chloride (SODIUM CHLORIDE) 10 ML ASDIR NM N IV Sodium Chloride (SODIUM CHLORIDE 0.9%) 250 ML DIR PRN IV Apixaban (ELIQUIS 2.5MG TABLET) 2.5 MG BID PO ( r) Polyethylene Glycol (MIRALAX) 17 GM DAILY PRN NM N PO Aspirin (ASPIRIN) 81 MG DAILY PO Pantoprazole (PROTONIX) 40 MG BID AC PO Trazodone HCl (DESYREL) 50 MG BEDTIME PO Nitroglycerin (NITRO-BID) 0.5 INCH DAILY TRANSDE RM Finasteride (PROSCAR) 5 MG DAILY PO Tamsulosin HCl (Flomax 0.4 mg) 0.4 MG BID PO Docusate Sodium (COLACE) 100 MG BID PO Lactulose (LACTULOSE) 20 GM BID PRN PRN PO Metoprolol Tartrate (LOPRESSOR) 25 MG BEDTIME PO Cyanocobalamin (Vitamin B-12 500 mcg tab) 500 MC G DAILY PO Folic Acid (FOLIC ACID) 1 MG DAILY PO Multivitamins (TAB-A-FINESSE) 1 TAB DAILY PO Sterile Water (WATER FOR INJECTION) 1.2 ML ASDIR PRN IV Thiamine HCl (THIAMINE HCL) 100 MG DAILY PO Ziprasidone (GEODON 20MG VIAL) 10 MG Q6H PRN PRN IM Physical Exam General appearance: sedated, no acute distress Neck: no JVD Cardiovascular: CV assessment: irregularly irregular Respiratory: clear to auscultation, no distress Abdomen: soft, non-tender, normal bowel sounds, no distention Genitourinary: no flank pain, no medina Lower extremity: LE assessment: no edema Musculoskeletal: normal inspection Neuro/HAND COLLATOR: alert, normal speech Skin: poor skin turgor Ulcer: Type/cause: arterial Duration: chronic Location: foot Laterality: left Stage: 3 Psychiatry: unable to evaluate Results Findings/Data: Laboratory Tests 07/20 0530 Chemistry Sodium (134 - 147 mEq/L) 141 Potassium (3.4 - 5.0 mEq/L) 4.9 Chloride (100 - 108 mEq/L) 110 H Carbon Dioxide (21 - 33 mEq/l) 23 Anion Gap (0 - 20) 13 BUN (7 - 18 mg/dL) 15 Creatinine (0.6 - 1.3 mg/dL) 0.9 Glomerular Filtr Rate (70 - 80) 80.2 H Glucose (70 - 110 mg/dL) 141 H Calcium (8.0 - 10.5 mg/dL) 9.0 Laboratory Tests 07/20 07/20 0832 0732 Coagulation INR (0.8 - 1.2) 1.3 H PTT ([place]) (25.0 - 39.5 Seconds) 30.1 PT Patient/Control Mix (9.3 - 12.9 SECONDS) 14. 2 H Activated Coag Time (74 - 137 SEC) 285 H Laboratory Tests 07/20 0530 Hematology WBC (4.5 - 11.0 x10 3/uL) 8.0 RBC (4.00 - 5.60 x10 6/uL) 3.38 L Hgb (12.5 - 16.9 g/dL) 10.4 L Hct (37.5 - 50.7 %) 33.3 L MCV (81.0 - 99.0 fL) 98.5 MCH (27.0 - 33.0 pg) 30.8 MCHC (33.0 - 37.0 g/dL) 31.2 L RDW (11.5 - 14.5 %) 16.3 H Plt Count (150 - 400 x10 3/uL) 342 MPV (7.0 - 9.0 fL) 9.8 H Neut % (Auto) (56.0 - 77.0 %) 84.9 H Lymph % (Auto) (14.0 - 32.0 %) 13.1 L Person % (Auto) (4.8 - 9.0 %) 1.1 L Eos % (Auto) (0.3 - 3.7 %) 0.0 L Baso % (Auto) (0.0 - 2.0 %) 0.3 Neut # (Auto) (2.0 - 7.6 x10 3/uL) 6.79 Lymph # (Auto) (1.0 - 3.8 x10 3/uL) 1.05 Person # (Auto) (0.1 - 0.8 x10 3/uL) 0.09 L Eos # (Auto) (0.0 - 0.2 x10 3/uL) 0.00 Baso # (Auto) (0.0 - 0.2 x10 3/uL) 0.02 Abs Immat Gran (auto) (0.00 - 0.03 x10 3/uL) 0. 05 H Add Manual Diff NO Immature Gran % (0.0 - 2.0 %) 0.6 Nucleated RBC % (0 - 0 %) 0.0 Nucleated RBCs # (Man) (0.0 - 0.1 x10 3/uL) 0.0 0 Laboratory Tests 07/19 1545 Serology SARS-CoV-2 Ag (Rapid) (Negative) Negative Results: labs reviewed, vital signs reviewed, vi abe signs stable Diagnosis, Assessment Plan Plan discussed with: daughter, nurse Free Text DxA P Notes Free Text DxA P Notes: 85 YO male with PMHx of HTN, PAF on chronic anticoagulation, and PAD with prior vascular interventions who is admitted with leg pain and swelling. Today hemoglobin dropped 7.3 from 8.5. Stool is positive for occult blood. GI has been consulted and planning for EGD. Cardiology is co nsulted to evaluate if anticogulation can be discontinued given anemi a nd possible GI bleed. The patient otherwise is awake a nd alert. He denies any palpitation, chest pain, or shortness of breath. He has been refusing teleme try monitor. 1. Chronic atrial fibrillation - rate controlled s/p Watchman procedure refusing telemetry continue BB as long as BP stable [id number] score 5 HAS-BLED score 4 Cleared by GI to start AC Eliquis 2.5 mg BID and baby ASA 81 mg daily RANDOLPH in 6 weeks to confirm complete occlusion of LIZETTE, then will DC Eliquis 2. PAD with prior vascular interventions/foot ul cers Vascular surgery and podiatry onboard Discussed with Dr. Oakley - he is ok to start Eliquis + baby ASA without Plavix 3. Hypertension BP stable so far continue metoprolol DC amlodipine 4. 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 Colonoscopy showed nonbleeding external and internal hemorrhoids and diverticulosis in the sigmoid colon and descending colon NOK: daughter Judie ([phone]) at 1107 RPT #:[id number] END OF REPORT 2021-07-20 11:03:00-00:00 [facility] ([facility]) Cardiology Progress Note REPORT#:[id number] REPORT STATUS: Signed DATE:07/20/21 TIME: 1103 PATIENT: KAYLYNN MISTRY UNIT #: [id number] [place] [facility] [place] : [place] AGE: 85 SEX: M ATTEND: Vinnie Garcia MD ADM AUTHOR: Katy Jack RESEARCH GEOLOGIST * ALL edits or amendments must be made on the [employer]/computer document * Subjective Chief complaint: s/p watchman procedure Objective General VS/I O: 24 hour I O ending at 0700: 07/20 0700 07/19 1900 Intake Total 800 Output Total 200 Balance -200 800 Intake, Oral 800 Number Voids 3 Output, Urine 200 Vital Signs: Date Time Temp Pulse Resp B/P B/P Pulse O2 O2 F low FiO2 Mean Ox Delivery Rate 07/20 0524 36.4 67 16 130/81 97.4 99 07/20 0008 36.5 68 16 125/82 96.1 98 07/19 2042 36.9 64 14 132/88 102.9 96 07/19 1639 36.4 96 18 151/91 110.9 98 Room air 07/19 1202 36.5 86 18 99/61 73.8 100 Room air PATIENT WEIGHT: Weight (lb): 184 Weight (oz): Weight (kg): 83.461 Medications: Active Meds + DC'd Last 24 Hrs Sodium Chloride (SODIUM CHLORIDE 0.9%) 250 ML DIR PRN IV Iopamidol (ISOVUE-370 100ML) 0 .STK-MED ONE IV ( DC) Heparin Sodium (HEPARIN SODIUM) 0 .STK-MED ONE . ROUTE (DC) Bupivacaine HCl (MARCAINE 0.5%) 0 .STK-MED ONE . ROUTE (DC) Heparin Sodium/Sodium Chloride (HEPARIN 2,000 UN ITS/NS 1,000mL) 2,000 ML .STK-MED ONE IV (DC) Cefazolin Sodium (KEFZOL OR ANCEF) 0 .STK-MED ON E .ROUTE (DC) Heparin Sodium (HEPARIN SODIUM) 0 .STK-MED ONE . ROUTE (DC) Dexamethasone Sodium Phosphate (DECADRON) 0 .STK -MED ONE .ROUTE (DC) Fentanyl Citrate (SUBLIMAZE) 0 .STK-MED ONE .ROU TE (DC) Lidocaine HCl (XYLOCAINE) 0 .STK-MED ONE .ROUTE (DC) Ondansetron HCl (ZOFRAN) 0 .STK-MED ONE .ROUTE ( DC) Propofol (DIPRIVAN 200MG/20ML INJECTION) 20 ML . STK-MED ONE IV (DC) Rocuronium Kenneth (ZEMURON) 0 .STK-MED ONE IV ( DC) Succinylcholine Chloride (QUELICIN FLIPTOP) 0 .S TK-MED ONE IV (DC) Diphenhydramine HCl (BENADRYL) 50 MG ONCE ONE PO (DC) Prednisone (predniSONE) 50 MG ONCE ONE PO (DC) Prednisone (predniSONE) 50 MG ONCE ONE PO (DC) Acetaminophen (TYLENOL EXTRA STRENGTH) 1,000 MG PREOP ONCALL PO (CKD) Gabapentin (NEURONTIN) 200 MG PREOP ONCALL PO (C KD) Lactated Ringer's (LACTATED RINGERS) 1,000 ML NM EOP ONCALL IV Lidocaine HCl (LIDOCAINE HCL/PF) 2 ML PREOP ONCA LL LOCAL Lidocaine HCl (LIDOCAINE HCL/PF) 2 ML PREOP ONCA LL LOCAL Sodium Chloride (SODIUM CHLORIDE 0.9%) 500 ML NM EOP ONCALL IV Sodium Chloride (SODIUM CHLORIDE 0.9%) 500 ML NM EOP ONCALL IV Sodium Chloride (SODIUM CHLORIDE 0.9%) 1,000 ML PREOP ONCALL IV Sodium Chloride (SODIUM CHLORIDE) 5 ML ASDIR PRN IV Sodium Chloride (SODIUM CHLORIDE) 10 ML ASDIR NM N IV Sodium Chloride (SODIUM CHLORIDE 0.9%) 250 ML DIR PRN IV Prednisone (predniSONE) 50 MG ONCE ONE PO (DC) Sodium Chloride (SODIUM CHLORIDE) 5 ML ASDIR PRN IV Sodium Chloride (SODIUM CHLORIDE) 10 ML ASDIR NM N IV Sodium Chloride (SODIUM CHLORIDE 0.9%) 250 ML DIR PRN IV Apixaban (ELIQUIS 2.5MG TABLET) 2.5 MG BID PO (r ) Polyethylene Glycol (MIRALAX) 17 GM DAILY PRN NM N PO Aspirin (ASPIRIN) 81 MG DAILY PO Pantoprazole (PROTONIX) 40 MG BID AC PO Trazodone HCl (DESYREL) 50 MG BEDTIME PO Nitroglycerin (NITRO-BID) 0.5 INCH DAILY TRANSDE Finasteride (PROSCAR) 5 MG DAILY PO Tamsulosin HCl (Flomax 0.4 mg) 0.4 MG BID PO Docusate Sodium (COLACE) 100 MG BID PO Lactulose (LACTULOSE) 20 GM BID PRN PRN PO Metoprolol Tartrate (LOPRESSOR) 25 MG BEDTIME PO Cyanocobalamin (Vitamin B-12 500 mcg tab) 500 MC G DAILY PO Folic Acid (FOLIC ACID) 1 MG DAILY PO Multivitamins (TAB-A-FINESSE) 1 TAB DAILY PO Sterile Water (WATER FOR INJECTION) 1.2 ML ASDIR PRN IV Thiamine HCl (THIAMINE HCL) 100 MG DAILY PO Ziprasidone (GEODON 20MG VIAL) 10 MG Q6H PRN PRN IM Physical Exam General appearance: sedated, no acute distress Neck: no JVD Cardiovascular: CV assessment: irregularly irregular Respiratory: clear to auscultation, no distress Abdomen: soft, non-tender, normal bowel sounds, no distention Genitourinary: no flank pain, no medina Lower extremity: LE assessment: no edema Musculoskeletal: normal inspection Neuro/HAND COLLATOR: alert, normal speech Skin: poor skin turgor Ulcer: Type/cause: arterial Duration: chronic Location: foot Laterality: left Stage: 3 Psychiatry: unable to evaluate Results Findings/Data: Laboratory Tests 07/20 05 Chemistry Sodium (134 - 147 mEq/L) 141 Potassium (3.4 - 5.0 mEq/L) 4.9 Chloride (100 - 108 mEq/L) 110 H Carbon Dioxide (21 - 33 mEq/l) 23 Anion Gap (0 - 20) 13 BUN (7 - 18 mg/dL) 15 Creatinine (0.6 - 1.3 mg/dL) 0.9 Glomerular Filtr Rate (70 - 80) 80.2 H Glucose (70 - 110 mg/dL) 141 H Calcium (8.0 - 10.5 mg/dL) 9.0 Laboratory Tests 07/20 07/20 0832 0732 Coagulation INR (0.8 - 1.2) 1.3 H PTT ([place]) (25.0 - 39.5 Seconds) 30.1 PT Patient/Control Mix (9.3 - 12.9 SECONDS) 14. 2 H Activated Coag Time (74 - 137 SEC) 285 H Laboratory Tests 07/20 0530 Hematology WBC (4.5 - 11.0 x10 3/uL) 8.0 RBC (4.00 - 5.60 x10 6/uL) 3.38 L Hgb (12.5 - 16.9 g/dL) 10.4 L Hct (37.5 - 50.7 %) 33.3 L MCV (81.0 - 99.0 fL) 98.5 MCH (27.0 - 33.0 pg) 30.8 MCHC (33.0 - 37.0 g/dL) 31.2 L RDW (11.5 - 14.5 %) 16.3 H Plt Count (150 - 400 x10 3/uL) 342 MPV (7.0 - 9.0 fL) 9.8 H Neut % (Auto) (56.0 - 77.0 %) 84.9 H Lymph % (Auto) (14.0 - 32.0 %) 13.1 L Person % (Auto) (4.8 - 9.0 %) 1.1 L Eos % (Auto) (0.3 - 3.7 %) 0.0 L Baso % (Auto) (0.0 - 2.0 %) 0.3 Neut # (Auto) (2.0 - 7.6 x10 3/uL) 6.79 Lymph # (Auto) (1.0 - 3.8 x10 3/uL) 1.05 Person # (Auto) (0.1 - 0.8 x10 3/uL) 0.09 L Eos # (Auto) (0.0 - 0.2 x10 3/uL) 0.00 Baso # (Auto) (0.0 - 0.2 x10 3/uL) 0.02 Abs Immat Gran (auto) (0.00 - 0.03 x10 3/uL) 0. 05 H Add Manual Diff NO Immature Gran % (0.0 - 2.0 %) 0.6 Nucleated RBC % (0 - 0 %) 0.0 Nucleated RBCs # (Man) (0.0 - 0.1 x10 3/uL) 0.0 0 Laboratory Tests 07/19 1545 Serology SARS-CoV-2 Ag (Rapid) (Negative) Negative Results: labs reviewed, vital signs reviewed, vi abe signs stable Diagnosis, Assessment Plan Plan discussed with: daughter, nurse Free Text DxA P Notes Free Text DxA P Notes: 85 YO male with PMHx of HTN, PAF on chronic anticoagulation, and PAD with prior vascular interventions who is admitted with leg pain and swelling. Today hemoglobin dropped 7.3 from 8.5. Stool is positive for occult blood. GI has been consulted and planning for EGD. Cardiology is co nsulted to evaluate if anticogulation can be discontinued given anemi a nd possible GI bleed. The patient otherwise is awake a nd alert. He denies any palpitation, chest pain, or shortness of breath. He has been refusing teleme try monitor. 1. Chronic atrial fibrillation - rate controlled s/p Watchman procedure refusing telemetry continue BB as long as BP stable [id number] score 5 HAS-BLED score 4 Cleared by GI to start AC Eliquis 2.5 mg BID and baby ASA 81 mg daily RANDOLPH in 6 weeks to confirm complete occlusion of LIZETTE, then will DC Eliquis 2. PAD with prior vascular interventions/foot ul cers Vascular surgery and podiatry onboard Discussed with Dr. Oakley - he is ok to start Eliquis + baby ASA without Plavix 3. Hypertension BP stable so far continue metoprolol DC amlodipine 4. 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 Colonoscopy showed nonbleeding external and internal hemorrhoids and diverticulosis in the sigmoid colon and descending colon NOK: daughter Judie ([phone]) at 1107 Electronically Signed by Antonina Day MD on at 3246 RPT #:[id number] END OF REPORT 2021-07-20 09:38:00-00:00 [id number] [address] PATIENT NAME: KAYLYNN MISTRY ADMIT DATE: 2 ACCOUNT NO: [id number] ROOM NO: [id number] AGE: 85 REPORT TYPE: OPERATIVE REPORT SEX: M ADMITTING PHYSICIAN:Santiago Garcia MD ATTENDING PHYSICIAN:Santiago Garcia MD OPERATION DATE: 07/20/2021 PREOPERATIVE DIAGNOSIS: POSTOPERATIVE DIAGNOSIS: PROCEDURE: Left atrial appendage closure using 2 7-mm Watchman FLX closure device. INDICATIONS: Atrial fibrillation with high risk for stroke and multiple GI bleeds, being on dual antiplatelets for peripher al vascular disease. COMPLICATIONS: None. BLEEDING: Less than 20 mL. ACCESS: Right femoral vein, 16-Monegasque closed wit h ilhjnr-je-tmwih suture. SURGEONS: Kyle Davies M.D., Mary Garay MASTER SHEET CLERK: ANESTHESIA: PROCEDURE IN DETAIL: After risks, benefits, and alternatives were explained, the patient agreed to proceed and signed informe d consent. The patient was brought to the cardiac venkat terization laboratory, prepped and draped in sterile fashion. Then, we accessed the right femoral vei n using micropuncture kit and ultrasound guidance, and placed a 6-Monegasque sheat h and upgraded to 16-Monegasque sheath, and gave partial dose of heparin and took SL1 sheath into the SVC with Zamora needle inside and then descended under the RANDOLPH and fluoroscopy guidance into the interatrial septum and in the low mid p osition. The transseptal puncture was done successfully and LA pressure w as measured at 13 mmHg. Then, sent a ProTrack wire into the left atrium, excha nged for the Watchman double curve sheath, removed the wi re and sent a pigtail into the left atrial appendage and navigated the Watchman s irma into the appendage and appendage angiogram was performed. Subsequently, measurements indicated a 27-mm will be suitable for closure, so a 27-mm Watchman FLX closure device was prepped and de-aired in the usual sterile fashion and then pigtail was remov ed, introduced the delivery system and after a good bleed back from the roberts th and positive flush through the delivery system and plac ed it in the appendage and then device was deployed successfully and PASS criteria were eval uated and met. The device was released and removed the sheath. A vjytmo-gg-epkzh suture was applied with good PATIENT NAME: KAYLYNN MISTRY 0883 hemostasis. Throughout the procedure after trans septal puncture, a full dose heparin was given to assure ACT level above 250. CONCLUSION: Successful left atrial appendage kentrell sure using 27-mm Watchman FLX closure device. Dictated By: Kyle Davies MD WT: OP:ALEIDA/JUNIOR/LIZBETH Conf#: [id number]/DID#: [id number] Authenticated by Kyle Davies MD On 08/03/2021 09:19:27 AM Electronically Signed by Kyle Davies MD on at 0919 PATIENT NAME: KAYLYNN MISTRY 0883 2021-07-20 09:18:00-00:00 [id number] [place] [address] PATIENT NAME: KAYLYNN MISTRY ADMIT DATE: 2 ACCOUNT NO: [id number] ROOM NO: [id number] AGE: 85 REPORT TYPE: eELECTROCARDIOGRAM REPORT SEX: M ADMITTING PHYSICIAN:Santiago Garcia MD ATTENDING PHYSICIAN:Santiago Garcia MD Order: [id number] Test Reason : WATCHMAN Test Date/Time Stamp: SunJul 20 2021 09:18:38 Blood Pressure : / mmHG Vent. Rate : 084 BPM Atrial Rate : 131 BPM P-R Int : 000 ms QRS Dur : 160 ms QT Int : 424 ms P-R-T Axes : 000 -62 -16 degree s QTc Int : 501 ms Atrial fibrillation with a competing junctional pacemaker Left axis deviation Right bundle branch block Abnormal ECG When compared with ECG of 15-JUL-2021 07:32, No significant change was found Confirmed by MD BARB, ANTONINA ([id number]) on 2021 12:31:16 PM Referred By: Santiago Garcia Confirmed by:ANTONINA DAY MD Electronically Signed by Antonina Day MD on 0 10/16/21 at 1231 PATIENT NAME: KAYLYNN MISTRY 0883 2021-07-19 13:16:00-00:00 [facility]L [facility] Progress Note REPORT#:[id number] REPORT STATUS: Signed DATE:07/19/21 TIME: 1316 PATIENT: KAYLYNN MISTRY UNIT #: [id number] ROOM/BED: [id number] : 35 AGE: 85 SEX: M ATTEND: Vinnie Garcia MD ADM AUTHOR: Megan Garcia NP * ALL edits or amendments must be made on the [employer]/computer document * Subjective Chief complaint: 12 point RoS-performed states he is fine-He feels l nu nothing is wrong with him and should be able to go home Objective General VS: Vital Signs: Date Time Temp Pulse Resp B/P B/P Pulse O2 O2 F low FiO2 Mean Ox Delivery Rate 07/19 1202 97.7 86 18 99/61 73.8 100 Room air 07/19 0755 98.4 57 18 130/78 95.6 98 Room air 07/19 0409 97.9 66 16 116/63 80.6 96 07/18 2337 97.7 61 16 104/57 72.3 99 07/18 1859 98.4 73 18 139/80 99 96 07/18 1516 98.8 59 18 108/70 82.9 99 Room air PATIENT WEIGHT: Weight (lb): 184 Weight (oz): Weight (kg): 83.461 Medications: Active Meds + DC'd Last 24 Hrs Diphenhydramine HCl (BENADRYL) 50 MG ONCE ONE PO Prednisone (predniSONE) 50 MG ONCE ONE PO Prednisone (predniSONE) 50 MG ONCE ONE PO Prednisone (predniSONE) 50 MG ONCE ONE PO Sodium Chloride (SODIUM CHLORIDE) 5 ML ASDIR PRN IV Sodium Chloride (SODIUM CHLORIDE) 10 ML ASDIR NM N IV Sodium Chloride (SODIUM CHLORIDE 0.9%) 250 ML DIR PRN IV Apixaban (ELIQUIS 2.5MG TABLET) 2.5 MG BID PO Polyethylene Glycol (MIRALAX) 17 GM DAILY PRN NM N PO Aspirin (ASPIRIN) 81 MG DAILY PO Pantoprazole (PROTONIX) 40 MG BID AC PO Trazodone HCl (DESYREL) 50 MG BEDTIME PO Nitroglycerin (NITRO-BID) 0.5 INCH DAILY TRANSDE RM Finasteride (PROSCAR) 5 MG DAILY PO Tamsulosin HCl (Flomax 0.4 mg) 0.4 MG BID PO Docusate Sodium (COLACE) 100 MG BID PO Lactulose (LACTULOSE) 20 GM BID PRN PRN PO Clopidogrel Bisulfate (Plavix) 75 MG BEDTIME PO (DC) Rivaroxaban (XARELTO 20MG) 20 MG DAILY PO (DC) Amlodipine Besylate (NORVASC) 5 MG DAILY PO (DC) Aspirin (ASPIRIN) 81 MG DAILY PO (DC) Metoprolol Tartrate (LOPRESSOR) 25 MG BEDTIME PO Cyanocobalamin (Vitamin B-12 500 mcg tab) 500 MC G DAILY PO Folic Acid (FOLIC ACID) 1 MG DAILY PO Multivitamins (TAB-A-FINESSE) 1 TAB DAILY PO Sterile Water (WATER FOR INJECTION) 1.2 ML ASDIR PRN IV Thiamine HCl (THIAMINE HCL) 100 MG DAILY PO Ziprasidone (GEODON 20MG VIAL) 10 MG Q6H PRN PRN IM Physical Exam General appearance: alert, awake, oriented Psych: alert, normal affect, oriented x 3 HEENT: anicteric, sclera clear Neck: supple, no JVD Cardiovascular: regular rate rhythm, S1/S2 Respiratory: aerating well, clear bilaterally Abdomen: bowel sounds present, non-distended, so ft Skin: no rash, ulcers to hallux and 4th toe Ulcer: Type/cause: arterial Duration: chronic Location: foot Laterality: left Stage: 3 Musculoskeletal - general: Musculoskeletal - general: joints normal, charan l muscle mass Neuro/HAND COLLATOR: alert, oriented X 3, CNII-XII intact Results Findings/Data: Laboratory Tests: 07/19 07/18 0400 1500 Chemistry Sodium (134 - 147 mEq/L) 142 Potassium (3.4 - 5.0 mEq/L) 4.1 Chloride (100 - 108 mEq/L) 112 H Carbon Dioxide (21 - 33 mEq/l) 22 Anion Gap (0 - 20) 12 BUN (7 - 18 mg/dL) 12 Creatinine (0.6 - 1.3 mg/dL) 0.9 Glomerular Filtr Rate (70 - 80) 80.2 H Glucose (70 - 110 mg/dL) 109 Calcium (8.0 - 10.5 mg/dL) 8.2 Hematology WBC (4.5 - 11.0 x10 3/uL) 6.9 RBC (4.00 - 5.60 x10 6/uL) 2.80 L Hgb (12.5 - 16.9 g/dL) 8.7 L 8.9 L Hct (37.5 - 50.7 %) 28.2 L 29.0 L MCV (81.0 - 99.0 fL) 100.7 H MCH (27.0 - 33.0 pg) 31.1 MCHC (33.0 - 37.0 g/dL) 30.9 L RDW (11.5 - 14.5 %) 16.4 H Plt Count (150 - 400 x10 3/uL) 263 MPV (7.0 - 9.0 fL) 10.1 H Neut % (Auto) (56.0 - 77.0 %) 56.4 Lymph % (Auto) (14.0 - 32.0 %) 29.5 Person % (Auto) (4.8 - 9.0 %) 10.6 H Eos % (Auto) (0.3 - 3.7 %) 2.5 Baso % (Auto) (0.0 - 2.0 %) 0.6 Neut # (Auto) (2.0 - 7.6 x10 3/uL) 3.87 Lymph # (Auto) (1.0 - 3.8 x10 3/uL) 2.03 Person # (Auto) (0.1 - 0.8 x10 3/uL) 0.73 Eos # (Auto) (0.0 - 0.2 x10 3/uL) 0.17 Baso # (Auto) (0.0 - 0.2 x10 3/uL) 0.04 Abs Immat Gran (auto) (0.00 - 0.03 x10 3/uL) 0. 03 Add Manual Diff NO Immature Gran % (0.0 - 2.0 %) 0.4 Nucleated RBC % (0 - 0 %) 0.0 Nucleated RBCs # (Man) (0.0 - 0.1 x10 3/uL) 0.0 0 Diagnosis, Assessment Plan Free Text A P: Generalized weakness Impaired mobility and gait Anemia PAD Ulcerations toes 1 and 4 left foot Hypertension Atrial fibrillation Alcohol use Plan: Continue PT/OT Out of bed to chair Work on strength, bed mobility, transfers, gait Increase endurance Fall precautions Monitor p.o. intake and nutrition Strict decubitus precautions Continue wound care and antibiotics Psych on case Going for EGD/colonoscopy today for + FOBT and w orsening anemia Advance therapies as tolerated IRF consulted Pt not working well with therapy S/p EGD and colonoscopy Found to have gastritis esophagitis and some div erticulosis but no bleeding Will wait for GI clearance before starting antic oagulation and antiplatelets Cardiology planning Procedure They are to discus s with GI and once patient is clear to resume antiplatelet will schedule patie nt for Amulet this coming Sunday07/18/2021 Reason Patient Unable to Perform: Refused by [place] price COMMENTS: Pt STATING HE HAS SURGERY IN 30 MIN. CONFIRMED WITH RN, Pt DOESN'T HAVE SX SCHEDULED. AFTER CLARIFICATION AND REDIRECTION, Pt STATES "WELL, I DON'T WANT THERAPY. I JUST WANT TO GO HOME." 07/19 Family tells me He is mobilizing with RW and [facility] bin members at his side. Therapy note Pt IS UNPLEASANT AND EASILY AGITATED, DOESN'T TA KE REDIRECTION WELL. Pt PERFORMED SUPINE>SIT SUPV. STATIC SITTING MOD I. SIT>STAND AT STANDARD WALKER SUPV. Pt AMB 5' TO BSCHAIR S UPV. Pt DECLINED FURTHER AMB AND REMAINED IN BSCHAIR WITH ALL NEEDS MET, CALL CHAPA WITHIN REACH, HANNA JON IN ROOM. RN INFORMED. Total time was 35 minutes > 50% with patient per forming physical examination, discussing plan of care, goals, therapies, progr ess, medications, labs. All questions answered Rehab attestation: Face to face exam completed. Treatment plan disc ussed with patient. at 1321 RPT #:[id number] END OF REPORT 2021-07-19 12:53:00-00:00 [facility] ([facility]) Hospitalist Progress Note REPORT#:[id number] REPORT STATUS: Signed DATE:07/19/21 TIME: 1253 PATIENT: KAYLYNN MISTRY UNIT #: [id number] ROOM/BED: [place] [id number] : 35 AGE: 85 SEX: M ATTEND: Vinnie Garcia MD ADM AUTHOR: Adry Ortiz MD * ALL edits or amendments must be made on the [employer]/computer document * Subjective Chief complaint: Pt seen and exam'd. Events noted. Following up l eg pain, confusion. Less confusion/ agitation today. Review of Systems Constitutional: Reports: generalized weakness. All systems rev neg: except as marked Objective General VS/I O: Vital Signs: Date Time Temp Pulse Resp B/P B/P Pulse O2 O2 F low FiO2 Mean Ox Delivery Rate 07/20 0524 97.5 67 16 130/81 97.4 99 07/20 0008 97.7 68 16 125/82 96.1 98 07/19 2042 98.4 64 14 132/88 102.9 96 07/19 1639 97.5 96 18 151/91 110.9 98 Room air 07/19 1202 97.7 86 18 99/61 73.8 100 Room air 07/19 0755 98.4 57 18 130/78 95.6 98 Room air 24 hour I O ending at 0700: 07/20 0700 07/19 1900 Intake Total 800 Output Total 200 Balance -200 800 Intake, Oral 800 Number Voids 3 Output, Urine 200 PATIENT WEIGHT: Weight (lb): 184 Weight (oz): Weight (kg): 83.461 Medications: Active Meds + DC'd Last 24 Hrs Diphenhydramine HCl (BENADRYL) 50 MG ONCE ONE PO (DC) Prednisone (predniSONE) 50 MG ONCE ONE PO (DC) Prednisone (predniSONE) 50 MG ONCE ONE PO (DC) Acetaminophen (TYLENOL EXTRA STRENGTH) 1,000 MG PREOP ONCALL PO (CKD) Gabapentin (NEURONTIN) 200 MG PREOP ONCALL PO (C KD) Lactated Ringer's (LACTATED RINGERS) 1,000 ML NM EOP ONCALL IV Lidocaine HCl (LIDOCAINE HCL/PF) 2 ML PREOP ONCA LL LOCAL Lidocaine HCl (LIDOCAINE HCL/PF) 2 ML PREOP ONCA LL LOCAL Sodium Chloride (SODIUM CHLORIDE 0.9%) 500 ML NM EOP ONCALL IV Sodium Chloride (SODIUM CHLORIDE 0.9%) 500 ML NM EOP ONCALL IV Sodium Chloride (SODIUM CHLORIDE 0.9%) 1,000 ML PREOP ONCALL IV Sodium Chloride (SODIUM CHLORIDE) 5 ML ASDIR PRN IV Sodium Chloride (SODIUM CHLORIDE) 10 ML ASDIR NM N IV Sodium Chloride (SODIUM CHLORIDE 0.9%) 250 ML DIR PRN IV Prednisone (predniSONE) 50 MG ONCE ONE PO (DC) Sodium Chloride (SODIUM CHLORIDE) 5 ML ASDIR PRN IV Sodium Chloride (SODIUM CHLORIDE) 10 ML ASDIR NM N IV Sodium Chloride (SODIUM CHLORIDE 0.9%) 250 ML DIR PRN IV Apixaban (ELIQUIS 2.5MG TABLET) 2.5 MG BID PO (D A) Polyethylene Glycol (MIRALAX) 17 GM DAILY PRN NM N PO Aspirin (ASPIRIN) 81 MG DAILY PO Pantoprazole (PROTONIX) 40 MG BID AC PO Trazodone HCl (DESYREL) 50 MG BEDTIME PO Nitroglycerin (NITRO-BID) 0.5 INCH DAILY TRANSDE RM Finasteride (PROSCAR) 5 MG DAILY PO Tamsulosin HCl (Flomax 0.4 mg) 0.4 MG BID PO Docusate Sodium (COLACE) 100 MG BID PO Lactulose (LACTULOSE) 20 GM BID PRN PRN PO Metoprolol Tartrate (LOPRESSOR) 25 MG BEDTIME PO Cyanocobalamin (Vitamin B-12 500 mcg tab) 500 MC G DAILY PO Folic Acid (FOLIC ACID) 1 MG DAILY PO Multivitamins (TAB-A-FINESSE) 1 TAB DAILY PO Sterile Water (WATER FOR INJECTION) 1.2 ML ASDIR PRN IV Thiamine HCl (THIAMINE HCL) 100 MG DAILY PO Ziprasidone (GEODON 20MG VIAL) 10 MG Q6H PRN PRN IM Nutrition assessment: The data set between the solid lines has been im ported from the dietitian's assessment. Any exceptions have been noted under Provider comments. BMI Calculated: 27.2 Nutrition related diagnosis: Nutrition diagnosis details: Nutrition problem: Nutrition etiology: Nutrition signs and symptoms: Nutrition prescription: Dietitian name: Assessment completed: Provider comments on imported dietitian assessme nt: Physical Exam Head/Eyes: atraumatic, EOMI, normocephalic, PERR L ENT: moist mucosal membranes Neck: full range of motion, non-tender Cardiovascular: normal heart sounds, regular rat e rhythm Respiratory: aerating well, clear to auscultatio n Abdomen: non-tender, normal bowel sounds, soft, no distention Genitourinary: no bladder distention Extremities: no clubbing, no cyanosis, no edema Skin: no rash Ulcer: Type/cause: arterial Duration: chronic Location: foot Laterality: left Stage: 3 Diagnosis, Assessment Plan Free Text DxA P Notes Free text DxA P notes: 1. Left lower extremity swelling. 2. Peripheral vascular disease. 3. Atrial fibrillation. 4. Foot wounds. 5. Questionable history of syncope. 6. Alcohol use. 7. Benign prostatic hypertrophy. 8. Hypertension. 9. Likely dementia. Improving mentation, continue to monitor. Pain/ discomfort related to reperfusion. Empiric abx. Swelling improving. Continue med tx. Monitor BP/ HR. Foot wound care. Appreciate Psych, Vasc, Pod input. Start PT/OT. CM to assist with dc planning. Urinary symptoms possible related to BPH; Add Av odart and increase Flomax. d/w dtr, all questions answered. 07/13/2021 Patient with left leg swelli ng, peripheral vascular disease, A. fib, foot wounds , BPH, hypertension Mental status much better today He states he feels depressed and misses his who 12 years ago Psych has been consulted PT/OT on board Vitals reviewed acceptable Labs reviewed acceptable Encouraged PT/OT PMNR consulted as patient st ates that he lives at home and wants to return back home when better 07/14/21 doing ok vitals reviewed-some hypotension today stop losartan and amlodipine Labs reviewed-Hb dropped stool OB requested and reported positive GI consulted hold xarelto and asa and plavix cardio consulted for further recommendations patient has 2 daughters, both son in law at bedside today and patient in their presence okaying rehab [facility] consulted PMNR help appreciated CM to help with rehab arrangement, preferable pr ivate bed/not a shared room repeat labs in am 07/15/21 doing ok vitals reviewed-BP low labs reviewed-Hb lower than yesterday holding xarelto and ASA and plavix cardio has evaluated the patient GI help appreciated EGD/Colonoscopy in plan Iron studies requested will give one unit PRBC today as anemic and hypo tensive PMNR following, will dc to rehab once medically cleared 07/16/2021 Patient is doing okay Vitals reviewed blood pressure still low Labs reviewed hemoglobin better after transfusio n Still aspirin Plavix and Xarelto is on hold GI help appreciated S/p EGD and colonoscopy Found to have gastritis esophagitis and some div erticulosis but no bleeding Will wait for GI clearance before starting antic oagulation and antiplatelets Waiting on cardio recommendations which ones to start Discharge to inpatient rehab once medically ceci red 07/17/21 doing ok wants to go home nurse present in room during visit cardio has discussed with daughter, needs LAP off antiplatelets for now for dropping Hb Hb better now will get GI opinion about restarting antiplatele ts then he needs rehab, patient agreed infront of f amily but not wanting it now will discuss again once medically ready 07/18/21 doing ok sitting up in chair better mood today and understanding his illnesse s vitals reviewed-BP lowinsh Labs-no new today Hb was 10 yesterday antiplatlets and anticoag still on hold cardio waiting on GI to ok to restart d/w GI going for LAP occlusion on as cardio note, not scheduled on chart yet am labs requested 07/19/21 doing ok vitals reviewed-acceptable Labs reviewed-acceptable restarted anticoag and antiplt eliquis and ASA HB holding ok for now cardio EP doing [facility] tomorrow COVID tested-negative am labs requested Electronically Signed by Adry Ortiz MD on 07/20 at 0629 RPT #:[id number] END OF REPORT 2021-07-19 11:26:00-00:00 [facility] Podiatry Progress Note REPORT#:[id number] REPORT STATUS: Signed DATE:07/19/21 TIME: 1125 PATIENT: KAYLYNN MISTRY UNIT #: [id number] ROOM/BED: [place] [id number] : 35 AGE: 85 SEX: M ATTEND: Vinnie Garcia MD ADM AUTHOR: Karsten Martines DPM * ALL edits or amendments must be made on the [employer] document * General VS/I O: Last Documented: Result Date Time Pulse Ox 98 07/19 0755 B/P 130/78 07/19 0755 B/P Mean 95.6 07/19 0755 O2 Delivery Room air 07/19 0755 Temp 36.9 07/19 0755 Pulse 57 07/19 0755 Resp 18 07/19 0755 O2 Flow Rate 0 07/15 1525 24 hour I O ending at 0700: 07/19 0700 07/18 1900 Intake Total 480 Output Total 400 Balance 80 Intake, Oral 480 Number 1 Bowel Movements Number Voids 2 Output, Urine 400 PATIENT WEIGHT: Weight (lb): 184 Weight (oz): Weight (kg): 83.461 Subjective Chief complaint: ulceration left Objective General VS: Last Documented: Result Date Time Pulse Ox 98 07/19 0755 B/P 130/78 07/19 0755 B/P Mean 95.6 07/19 0755 O2 Delivery Room air 07/19 0755 Temp 36.9 07/19 0755 Pulse 57 07/19 0755 Resp 18 07/19 0755 O2 Flow Rate 0 07/15 1525 PATIENT WEIGHT: Weight (lb): 184 Weight (oz): Weight (kg): 83.461 Medications: Active Meds + DC'd Last 24 Hrs Apixaban (ELIQUIS 2.5MG TABLET) 2.5 MG BID PO Polyethylene Glycol (MIRALAX) 17 GM DAILY PRN NM N PO Aspirin (ASPIRIN) 81 MG DAILY PO Pantoprazole (PROTONIX) 40 MG BID AC PO Trazodone HCl (DESYREL) 50 MG BEDTIME PO Nitroglycerin (NITRO-BID) 0.5 INCH DAILY TRANSDE RM Finasteride (PROSCAR) 5 MG DAILY PO Tamsulosin HCl (Flomax 0.4 mg) 0.4 MG BID PO Docusate Sodium (COLACE) 100 MG BID PO Lactulose (LACTULOSE) 20 GM BID PRN PRN PO Clopidogrel Bisulfate (Plavix) 75 MG BEDTIME PO (DC) Rivaroxaban (XARELTO 20MG) 20 MG DAILY PO (DC) Amlodipine Besylate (NORVASC) 5 MG DAILY PO (DC) Aspirin (ASPIRIN) 81 MG DAILY PO (DC) Metoprolol Tartrate (LOPRESSOR) 25 MG BEDTIME PO Cyanocobalamin (Vitamin B-12 500 mcg tab) 500 MC G DAILY PO Folic Acid (FOLIC ACID) 1 MG DAILY PO Multivitamins (TAB-A-FINESSE) 1 TAB DAILY PO Sterile Water (WATER FOR INJECTION) 1.2 ML ASDIR PRN IV Thiamine HCl (THIAMINE HCL) 100 MG DAILY PO Ziprasidone (GEODON 20MG VIAL) 10 MG Q6H PRN PRN IM I O: 24 hour I O ending at 0700: 07/19 0700 07/18 1900 Intake Total 480 Output Total 400 Balance 80 Intake, Oral 480 Number 1 Bowel Movements Number Voids 2 Output, Urine 400 Nutrition assessment: The data set between the solid lines has been im ported from the dietitian's assessment. Any exceptions have been noted under Provider comments. BMI Calculated: 27.2 Nutrition related diagnosis: Nutrition diagnosis details: Nutrition problem: Nutrition etiology: Nutrition signs and symptoms: Nutrition prescription: Dietitian name: Assessment completed: Provider comments on imported dietitian assessme nt: Physical Exam General appearance: awake LE vascular pulse assess: 1+ R posterior tibialis, 1+ L posterior tibialis , 1+ R dorsalis pedis, 1+ L dorsalis pedis Capillary refill: Capillary refill (in seconds): < 3 seconds Right foot, < 3 seconds Left foot Reflexes: Achilles: 2+ Foot: vascular deficit Musculoskeletal: Musculoskeletal: decreased ROM Neuro/HAND COLLATOR: oriented X 3, no motor deficits Skin: ecchymosis (ecchymosis of left foot), dry Ulcer: Location: foot Type: arterial Appearance: necrotic tissue, Ulcerations to the dorsal 4th toe and plantar hallux have dry stable escha r no localized skin or soft tissue infection noted. Drainage: without odor Results Findings/Data: Laboratory Tests: 07/19 07/18 0400 1500 Chemistry Sodium (134 - 147 mEq/L) 142 Potassium (3.4 - 5.0 mEq/L) 4.1 Chloride (100 - 108 mEq/L) 112 H Carbon Dioxide (21 - 33 mEq/l) 22 Anion Gap (0 - 20) 12 BUN (7 - 18 mg/dL) 12 Creatinine (0.6 - 1.3 mg/dL) 0.9 Glomerular Filtr Rate (70 - 80) 80.2 H Glucose (70 - 110 mg/dL) 109 Calcium (8.0 - 10.5 mg/dL) 8.2 Hematology WBC (4.5 - 11.0 x10 3/uL) 6.9 RBC (4.00 - 5.60 x10 6/uL) 2.80 L Hgb (12.5 - 16.9 g/dL) 8.7 L 8.9 L Hct (37.5 - 50.7 %) 28.2 L 29.0 L MCV (81.0 - 99.0 fL) 100.7 H MCH (27.0 - 33.0 pg) 31.1 MCHC (33.0 - 37.0 g/dL) 30.9 L RDW (11.5 - 14.5 %) 16.4 H Plt Count (150 - 400 x10 3/uL) 263 MPV (7.0 - 9.0 fL) 10.1 H Neut % (Auto) (56.0 - 77.0 %) 56.4 Lymph % (Auto) (14.0 - 32.0 %) 29.5 Person % (Auto) (4.8 - 9.0 %) 10.6 H Eos % (Auto) (0.3 - 3.7 %) 2.5 Baso % (Auto) (0.0 - 2.0 %) 0.6 Neut # (Auto) (2.0 - 7.6 x10 3/uL) 3.87 Lymph # (Auto) (1.0 - 3.8 x10 3/uL) 2.03 Person # (Auto) (0.1 - 0.8 x10 3/uL) 0.73 Eos # (Auto) (0.0 - 0.2 x10 3/uL) 0.17 Baso # (Auto) (0.0 - 0.2 x10 3/uL) 0.04 Abs Immat Gran (auto) (0.00 - 0.03 x10 3/uL) 0. 03 Add Manual Diff NO Immature Gran % (0.0 - 2.0 %) 0.4 Nucleated RBC % (0 - 0 %) 0.0 Nucleated RBCs # (Man) (0.0 - 0.1 x10 3/uL) 0.0 0 Results: labs reviewed Diagnosis, Assessment Plan Free Text A P: PAD b/l LE s/p recent revascularization Ulcerations toes 1 and 4 left foot with dry, sta ble eschar Localized edema b/l LE Injury left foot BETADIEN WTD DAILY LEFT FOOT WBAT VASCULAR CONSULT AND EVAL PAIN CONTROL PT/OT WILL FOLLOW Electronically Signed by Karsten Martines DPM on 06/21 at 0946 RPT #:[id number] END OF REPORT 2021-07-19 09:56:00-00:00 [facility] Gastroenterology Progress Note REPORT#:[id number] REPORT STATUS: Signed DATE:07/19/21 TIME: 955 PATIENT: KAYLYNN MISTRY UNIT #: [id number] ROOM/BED: [place] [address] : 35 AGE: 85 SEX: M ATTEND: Vinnie Garcia MD ADM AUTHOR: Henry Douglas * ALL edits or amendments must be made on the [employer]/computer document * Henry Douglas 07/19/21 0956: Subjective Comments: Tolerating PO. No overt gi bleeding this morning . No nausea, vomiting, or abdominal pain Review of Systems Additional notes: 10 point ros neg except hpi Objective General VS/I O: Last Documented: Result Date Time Pulse Ox 98 07/19 0755 B/P 130/78 07/19 0755 B/P Mean 95.6 07/19 0755 O2 Delivery Room air 07/19 0755 Temp 98.4 07/19 0755 Pulse 57 07/19 0755 Resp 18 07/19 0755 O2 Flow Rate 0 07/15 1525 24 hour I O ending at 0700: 07/19 0700 07/18 1900 Intake Total 480 Output Total 400 Balance 80 Intake, Oral 480 Number 1 Bowel Movements Number Voids 2 Output, Urine 400 PATIENT WEIGHT: Weight (lb): 184 Weight (oz): Weight (kg): 83.461 Medications: Active Meds + DC'd Last 24 Hrs Polyethylene Glycol (MIRALAX) 17 GM DAILY PRN NM N PO (UNV) Aspirin (ASPIRIN) 81 MG DAILY PO Pantoprazole (PROTONIX) 40 MG BID AC PO Trazodone HCl (DESYREL) 50 MG BEDTIME PO Nitroglycerin (NITRO-BID) 0.5 INCH DAILY TRANSDE RM Finasteride (PROSCAR) 5 MG DAILY PO Tamsulosin HCl (Flomax 0.4 mg) 0.4 MG BID PO Docusate Sodium (COLACE) 100 MG BID PO Lactulose (LACTULOSE) 20 GM BID PRN PRN PO Clopidogrel Bisulfate (Plavix) 75 MG BEDTIME PO (DC) Rivaroxaban (XARELTO 20MG) 20 MG DAILY PO (DC) Amlodipine Besylate (NORVASC) 5 MG DAILY PO (DC) Aspirin (ASPIRIN) 81 MG DAILY PO (DC) Metoprolol Tartrate (LOPRESSOR) 25 MG BEDTIME PO Cyanocobalamin (Vitamin B-12 500 mcg tab) 500 MC G DAILY PO Folic Acid (FOLIC ACID) 1 MG DAILY PO Multivitamins (TAB-A-FINESSE) 1 TAB DAILY PO Sterile Water (WATER FOR INJECTION) 1.2 ML ASDIR PRN IV Thiamine HCl (THIAMINE HCL) 100 MG DAILY PO Ziprasidone (GEODON 20MG VIAL) 10 MG Q6H PRN PRN IM Physical Exam General appearance: alert, awake HEENT: abnl conjunctiva/sclera, dry mucosal memb ranes Neck: decreased range of motion Cardiovascular: normal capillary refill, regular rate rhythm Respiratory: aerating well, symmetric expansion Abdomen: non-tender Extremities: decreased range of motion Musculoskeletal: decreased ROM Neuro/HAND COLLATOR: alert Skin: abnormal color, abnormal temperature, ecch ymosis Ulcer: Type/cause: arterial Duration: chronic Location: foot Laterality: left Stage: 3 Psychiatry: abnl judgment/insight Results Findings/Data: Laboratory Tests 07/19/21 0400: [Embedded Image Not Available] 07/18/21 1500: [Embedded Image Not Available] Laboratory Tests 07/20 399 Chemistry Sodium (134 - 147 mEq/L) 142 Potassium (3.4 - 5.0 mEq/L) 4.1 Chloride (100 - 108 mEq/L) 112 H Carbon Dioxide (21 - 33 mEq/l) 22 Anion Gap (0 - 20) 12 BUN (7 - 18 mg/dL) 12 Creatinine (0.6 - 1.3 mg/dL) 0.9 Glomerular Filtr Rate (70 - 80) 80.2 H Glucose (70 - 110 mg/dL) 109 Calcium (8.0 - 10.5 mg/dL) 8.2 Laboratory Tests 07/19 1500 Hematology WBC (4.5 - 11.0 x10 3/uL) 6.9 RBC (4.00 - 5.60 x10 6/uL) 2.80 L Hgb (12.5 - 16.9 g/dL) 8.7 L 8.9 L Hct (37.5 - 50.7 %) 28.2 L 29.0 L MCV (81.0 - 99.0 fL) 100.7 H MCH (27.0 - 33.0 pg) 31.1 MCHC (33.0 - 37.0 g/dL) 30.9 L RDW (11.5 - 14.5 %) 16.4 H Plt Count (150 - 400 x10 3/uL) 263 MPV (7.0 - 9.0 fL) 10.1 H Neut % (Auto) (56.0 - 77.0 %) 56.4 Lymph % (Auto) (14.0 - 32.0 %) 29.5 Person % (Auto) (4.8 - 9.0 %) 10.6 H Eos % (Auto) (0.3 - 3.7 %) 2.5 Baso % (Auto) (0.0 - 2.0 %) 0.6 Neut # (Auto) (2.0 - 7.6 x10 3/uL) 3.87 Lymph # (Auto) (1.0 - 3.8 x10 3/uL) 2.03 Person # (Auto) (0.1 - 0.8 x10 3/uL) 0.73 Eos # (Auto) (0.0 - 0.2 x10 3/uL) 0.17 Baso # (Auto) (0.0 - 0.2 x10 3/uL) 0.04 Abs Immat Gran (auto) (0.00 - 0.03 x10 3/uL) 0. 03 Add Manual Diff NO Immature Gran % (0.0 - 2.0 %) 0.4 Nucleated RBC % (0 - 0 %) 0.0 Nucleated RBCs # (Man) (0.0 - 0.1 x10 3/uL) 0.0 0 Diagnosis, Assessment Plan Free Text A P: worsening anemia FOBT+ delirium, improved chronic anticoagulation chronic antiplatelet therapy coagulopathy - monitor h/h, transfuse as needed - monitor for overt gi bleeding while on eliquis and aspirin - diet as tolerated - benefits > risks for left atrial appendage occ lusion device for atiral fibrillation - moderate risk of bleeding with antiplatelet therapy/anticoagulation in view of egd findings - continue with ppi bid - agree with cardiology plan of care - daily bowel regimen Alfredito Jerez 07/19/21 1717: Attestations Physician Attestation Agree w/findings plan: I examined the patient and agree with the christine gs and plan as documented by Misael MORATAYA; Electronically Signed by Henry Douglas on at 1653 Electronically Signed by Alfredito Jerez MD on at 1717 RPT #:[id number] END OF REPORT 2021-07-19 08:37:00-00:00 [facility] Cardiology Progress Note REPORT#:[id number] REPORT STATUS: Signed DATE:07/19/21 TIME: 836 PATIENT: KAYLYNN MISRTY UNIT #: [id number] ROOM/BED: [place] [address] : 35 AGE: 85 SEX: M ATTEND: Vinnie Garcia MD ADM AUTHOR: Katy Jack RESEARCH GEOLOGIST * ALL edits or amendments must be made on the [employer]/computer document * Subjective Chief complaint: pleasantly confused Objective General VS/I O: 24 hour I O ending at 0700: 07/19 0700 07/18 1900 Intake Total 480 Output Total 400 Balance 80 Intake, Oral 480 Number 1 Bowel Movements Number Voids 2 Output, Urine 400 Vital Signs: Date Time Temp Pulse Resp B/P B/P Pulse O2 O2 F low FiO2 Mean Ox Delivery Rate 07/19 0755 36.9 57 18 130/78 95.6 98 Room air 07/19 0409 36.6 66 16 116/63 80.6 96 07/18 2337 36.5 61 16 104/57 72.3 99 07/18 1859 36.9 73 18 139/80 99 96 07/18 1516 37.1 59 18 108/70 82.9 99 Room air 07/18 1225 36.7 69 18 102/65 77.4 97 Room air PATIENT WEIGHT: Weight (lb): 184 Weight (oz): Weight (kg): 83.461 Medications: Active Meds + DC'd Last 24 Hrs Aspirin (ASPIRIN) 81 MG DAILY PO Pantoprazole (PROTONIX) 40 MG BID AC PO Trazodone HCl (DESYREL) 50 MG BEDTIME PO Nitroglycerin (NITRO-BID) 0.5 INCH DAILY TRANSDE RM Finasteride (PROSCAR) 5 MG DAILY PO Tamsulosin HCl (Flomax 0.4 mg) 0.4 MG BID PO Docusate Sodium (COLACE) 100 MG BID PO Lactulose (LACTULOSE) 20 GM BID PRN PRN PO Doxycycline Monohydrate (DOXYCYCLINE MONOHYDRATE ) 100 MG Q12HR PO (DC) Clopidogrel Bisulfate (Plavix) 75 MG BEDTIME PO (DC) Rivaroxaban (XARELTO 20MG) 20 MG DAILY PO (DC) Amlodipine Besylate (NORVASC) 5 MG DAILY PO (DC) Aspirin (ASPIRIN) 81 MG DAILY PO (DC) Metoprolol Tartrate (LOPRESSOR) 25 MG BEDTIME PO Cyanocobalamin (Vitamin B-12 500 mcg tab) 500 MC G DAILY PO Folic Acid (FOLIC ACID) 1 MG DAILY PO Multivitamins (TAB-A-FINESSE) 1 TAB DAILY PO Sterile Water (WATER FOR INJECTION) 1.2 ML ASDIR PRN IV Thiamine HCl (THIAMINE HCL) 100 MG DAILY PO Ziprasidone (GEODON 20MG VIAL) 10 MG Q6H PRN PRN IM Physical Exam General appearance: alert, awake, no acute distr ess Neck: no JVD Cardiovascular: CV assessment: irregularly irregular Respiratory: clear to auscultation, no distress Abdomen: soft, non-tender, normal bowel sounds, no distention Genitourinary: no flank pain, no [place] Lower extremity: LE assessment: no edema Musculoskeletal: normal inspection Neuro/HAND COLLATOR: alert, normal speech Skin: poor skin turgor Ulcer: Type/cause: arterial Duration: chronic Location: foot Laterality: left Stage: 3 Psychiatry: normal mood Results Findings/Data: Laboratory Tests 07/19 0400 Chemistry Sodium (134 - 147 mEq/L) 142 Potassium (3.4 - 5.0 mEq/L) 4.1 Chloride (100 - 108 mEq/L) 112 H Carbon Dioxide (21 - 33 mEq/l) 22 Anion Gap (0 - 20) 12 BUN (7 - 18 mg/dL) 12 Creatinine (0.6 - 1.3 mg/dL) 0.9 Glomerular Filtr Rate (70 - 80) 80.2 H Glucose (70 - 110 mg/dL) 109 Calcium (8.0 - 10.5 mg/dL) 8.2 Laboratory Tests 07/19 07/18 0400 1500 Hematology WBC (4.5 - 11.0 x10 3/uL) 6.9 RBC (4.00 - 5.60 x10 6/uL) 2.80 L Hgb (12.5 - 16.9 g/dL) 8.7 L 8.9 L Hct (37.5 - 50.7 %) 28.2 L 29.0 L MCV (81.0 - 99.0 fL) 100.7 H MCH (27.0 - 33.0 pg) 31.1 MCHC (33.0 - 37.0 g/dL) 30.9 L RDW (11.5 - 14.5 %) 16.4 H Plt Count (150 - 400 x10 3/uL) 263 MPV (7.0 - 9.0 fL) 10.1 H Neut % (Auto) (56.0 - 77.0 %) 56.4 Lymph % (Auto) (14.0 - 32.0 %) 29.5 Person % (Auto) (4.8 - 9.0 %) 10.6 H Eos % (Auto) (0.3 - 3.7 %) 2.5 Baso % (Auto) (0.0 - 2.0 %) 0.6 Neut # (Auto) (2.0 - 7.6 x10 3/uL) 3.87 Lymph # (Auto) (1.0 - 3.8 x10 3/uL) 2.03 Person # (Auto) (0.1 - 0.8 x10 3/uL) 0.73 Eos # (Auto) (0.0 - 0.2 x10 3/uL) 0.17 Baso # (Auto) (0.0 - 0.2 x10 3/uL) 0.04 Abs Immat Gran (auto) (0.00 - 0.03 x10 3/uL) 0. 03 Add Manual Diff NO Immature Gran % (0.0 - 2.0 %) 0.4 Nucleated RBC % (0 - 0 %) 0.0 Nucleated RBCs # (Man) (0.0 - 0.1 x10 3/uL) 0.0 0 Diagnosis, Assessment Plan Plan discussed with: patient, nurse Free Text DxA P Notes Free Text DxA P Notes: 85 YO male with PMHx of HTN, PAF on chronic anticoagulation, and PAD with prior vascular interventions who is admitted with leg pain and swelling. Today hemoglobin dropped 7.3 from 8.5. Stool is positive for occult blood. GI has been consulted and planning for EGD. Cardiology is co nsulted to evaluate if anticogulation can be discontinued given anemi a nd possible GI bleed. The patient otherwise is awake a nd alert. He denies any palpitation, chest pain, or shortness of breath. He has been refusing teleme try monitor. 1. Chronic atrial fibrillation - rate controlled refusing telemetry continue BB as long as BP stable [id number] score 5 HAS-BLED score 4 Cleared by GI to start AC Eliquis 2.5 mg BID and baby ASA 81 mg daily -hol d tonight dose of Eliquis Watchman vs amulet tomorrow. Plan discussed in g meaganat detail with daughter and patient. 2. PAD with prior vascular interventions/foot ul cers Vascular surgery and podiatry onboard Discussed with Dr. Oakley - he is ok to start Eliquis + baby ASA without Plavix 3. Hypertension BP stable so far continue metoprolol DC amlodipine 4. 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 Colonoscopy showed nonbleeding external and internal hemorrhoids and diverticulosis in the sigmoid colon and descending colon Case discussed with GI and Vascular surgery. Daughter and patient updated with tx plan NOK: daughter Judie ([phone]) at 1021 RPT #:[id number] END OF REPORT 2021-07-19 08:37:00-00:00 [facility] Cardiology Progress Note REPORT#:[id number] REPORT STATUS: Signed DATE:07/19/21 TIME: 08 PATIENT: KAYLYNN MISTRY UNIT #: [id number] ROOM/BED: [place] [address] : 35 AGE: 85 SEX: M ATTEND: Vinnie Garcia MD ADM AUTHOR: Katy Jack RESEARCH GEOLOGIST * ALL edits or amendments must be made on the [employer]/computer document * Subjective Chief complaint: pleasantly confused Objective General VS/I O: 24 hour I O ending at 0700: 07/19 0700 07/18 1900 Intake Total 480 Output Total 400 Balance 80 Intake, Oral 480 Number 1 Bowel Movements Number Voids 2 Output, Urine 400 Vital Signs: Date Time Temp Pulse Resp B/P B/P Pulse O2 O2 F low FiO2 Mean Ox Delivery Rate 07/19 0755 36.9 57 18 130/78 95.6 98 Room air 07/19 0409 36.6 66 16 116/63 80.6 96 07/18 2337 36.5 61 16 104/57 72.3 99 07/18 1859 36.9 73 18 139/80 99 96 07/18 1516 37.1 59 18 108/70 82.9 99 Room air 07/18 1225 36.7 69 18 102/65 77.4 97 Room air PATIENT WEIGHT: Weight (lb): 184 Weight (oz): Weight (kg): 83.461 Medications: Active Meds + DC'd Last 24 Hrs Aspirin (ASPIRIN) 81 MG DAILY PO Pantoprazole (PROTONIX) 40 MG BID AC PO Trazodone HCl (DESYREL) 50 MG BEDTIME PO Nitroglycerin (NITRO-BID) 0.5 INCH DAILY TRANSDE RM Finasteride (PROSCAR) 5 MG DAILY PO Tamsulosin HCl (Flomax 0.4 mg) 0.4 MG BID PO Docusate Sodium (COLACE) 100 MG BID PO Lactulose (LACTULOSE) 20 GM BID PRN PRN PO Doxycycline Monohydrate (DOXYCYCLINE MONOHYDRATE ) 100 MG Q12HR PO (DC) Clopidogrel Bisulfate (Plavix) 75 MG BEDTIME PO (DC) Rivaroxaban (XARELTO 20MG) 20 MG DAILY PO (DC) Amlodipine Besylate (NORVASC) 5 MG DAILY PO (DC) Aspirin (ASPIRIN) 81 MG DAILY PO (DC) Metoprolol Tartrate (LOPRESSOR) 25 MG BEDTIME PO Cyanocobalamin (Vitamin B-12 500 mcg tab) 500 MC G DAILY PO Folic Acid (FOLIC ACID) 1 MG DAILY PO Multivitamins (TAB-A-FINESSE) 1 TAB DAILY PO Sterile Water (WATER FOR INJECTION) 1.2 ML ASDIR PRN IV Thiamine HCl (THIAMINE HCL) 100 MG DAILY PO Ziprasidone (GEODON 20MG VIAL) 10 MG Q6H PRN PRN IM Physical Exam General appearance: alert, awake, no acute distr ess Neck: no JVD Cardiovascular: CV assessment: irregularly irregular Respiratory: clear to auscultation, no distress Abdomen: soft, non-tender, normal bowel sounds, no distention Genitourinary: no flank pain, no medina Lower extremity: LE assessment: no edema Musculoskeletal: normal inspection Neuro/HAND COLLATOR: alert, normal speech Skin: poor skin turgor Ulcer: Type/cause: arterial Duration: chronic Location: foot Laterality: left Stage: 3 Psychiatry: normal mood Results Findings/Data: Laboratory Tests 07/19 0400 Chemistry Sodium (134 - 147 mEq/L) 142 Potassium (3.4 - 5.0 mEq/L) 4.1 Chloride (100 - 108 mEq/L) 112 H Carbon Dioxide (21 - 33 mEq/l) 22 Anion Gap (0 - 20) 12 BUN (7 - 18 mg/dL) 12 Creatinine (0.6 - 1.3 mg/dL) 0.9 Glomerular Filtr Rate (70 - 80) 80.2 H Glucose (70 - 110 mg/dL) 109 Calcium (8.0 - 10.5 mg/dL) 8.2 Laboratory Tests 07/19 07/18 0400 1500 Hematology WBC (4.5 - 11.0 x10 3/uL) 6.9 RBC (4.00 - 5.60 x10 6/uL) 2.80 L Hgb (12.5 - 16.9 g/dL) 8.7 L 8.9 L Hct (37.5 - 50.7 %) 28.2 L 29.0 L MCV (81.0 - 99.0 fL) 100.7 H MCH (27.0 - 33.0 pg) 31.1 MCHC (33.0 - 37.0 g/dL) 30.9 L RDW (11.5 - 14.5 %) 16.4 H Plt Count (150 - 400 x10 3/uL) 263 MPV (7.0 - 9.0 fL) 10.1 H Neut % (Auto) (56.0 - 77.0 %) 56.4 Lymph % (Auto) (14.0 - 32.0 %) 29.5 Person % (Auto) (4.8 - 9.0 %) 10.6 H Eos % (Auto) (0.3 - 3.7 %) 2.5 Baso % (Auto) (0.0 - 2.0 %) 0.6 Neut # (Auto) (2.0 - 7.6 x10 3/uL) 3.87 Lymph # (Auto) (1.0 - 3.8 x10 3/uL) 2.03 Person # (Auto) (0.1 - 0.8 x10 3/uL) 0.73 Eos # (Auto) (0.0 - 0.2 x10 3/uL) 0.17 Baso # (Auto) (0.0 - 0.2 x10 3/uL) 0.04 Abs Immat Gran (auto) (0.00 - 0.03 x10 3/uL) 0. 03 Add Manual Diff NO Immature Gran % (0.0 - 2.0 %) 0.4 Nucleated RBC % (0 - 0 %) 0.0 Nucleated RBCs # (Man) (0.0 - 0.1 x10 3/uL) 0.0 0 Diagnosis, Assessment Plan Plan discussed with: patient, nurse Free Text DxA P Notes Free Text DxA P Notes: 85 YO male with PMHx of HTN, PAF on chronic anticoagulation, and PAD with prior vascular interventions who is admitted with leg pain and swelling. Today hemoglobin dropped 7.3 from 8.5. Stool is positive for occult blood. GI has been consulted and planning for EGD. Cardiology is co nsulted to evaluate if anticogulation can be discontinued given anemi a nd possible GI bleed. The patient otherwise is awake a nd alert. He denies any palpitation, chest pain, or shortness of breath. He has been refusing teleme try monitor. 1. Chronic atrial fibrillation - rate controlled refusing telemetry continue BB as long as BP stable [id number] score 5 HAS-BLED score 4 Cleared by GI to start AC Eliquis 2.5 mg BID and baby ASA 81 mg daily -hol d tonight dose of Eliquis Watchman vs amulet tomorrow. Plan discussed in g reat detail with daughter and patient. 2. PAD with prior vascular interventions/foot ul cers Vascular surgery and podiatry onboard Discussed with Dr. Oakley - he is ok to start Eliquis + baby ASA without Plavix 3. Hypertension BP stable so far continue metoprolol DC amlodipine 4. 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 Colonoscopy showed nonbleeding external and internal hemorrhoids and diverticulosis in the sigmoid colon and descending colon Case discussed with GI and Vascular surgery. Daughter and patient updated with tx plan NOK: daughter Judie ([phone]) at 1021 Electronically Signed by Antonina Day MD on at 0803 RPT #:[id number] END OF REPORT 2021-07-18 21:56:00-00:00 [facility] REPORT#:[id number] REPORT STATUS: Signed DATE:07/18/21 TIME: 2155 PATIENT: KAYLYNN MISTRY UNIT #: [id number] ROOM/BED: 3344-1 : 35 AGE: 85 SEX: M ATTEND: Vinnie Garcia MD ADM AUTHOR: Karsten Martines DPM * ALL edits or amendments must be made on the [employer] document * General VS/I O: Last Documented: Result Date Time Pulse Ox 96 07/18 1859 B/P 139/80 07/18 1859 B/P Mean 99 07/18 1859 Temp 36.9 07/18 1859 Pulse 73 07/18 1859 Resp 18 07/18 1859 O2 Delivery Room air 07/18 1516 O2 Flow Rate 0 07/15 1525 24 hour I O ending at 0700: 07/18 0700 07/17 1900 Intake Total Output Total 200 Balance -200 Output, Urine 200 PATIENT WEIGHT: Weight (lb): 184 Weight (oz): Weight (kg): 83.461 Subjective Chief complaint: ulceration left Objective General VS: Last Documented: Result Date Time Pulse Ox 96 07/18 1859 B/P 139/80 07/18 1859 B/P Mean 99 07/18 1859 Temp 36.9 07/18 1859 Pulse 73 07/18 1859 Resp 18 07/18 1859 O2 Delivery Room air 07/18 1516 O2 Flow Rate 0 15 1525 PATIENT WEIGHT: Weight (lb): 184 Weight (oz): Weight (kg): 83.461 Medications: Active Meds + DC'd Last 24 Hrs Apixaban (ELIQUIS 2.5MG TABLET) 2.5 MG BID PO Polyethylene Glycol (MIRALAX) 17 GM DAILY PRN NM N PO Aspirin (ASPIRIN) 81 MG DAILY PO Pantoprazole (PROTONIX) 40 MG BID AC PO Trazodone HCl (DESYREL) 50 MG BEDTIME PO Nitroglycerin (NITRO-BID) 0.5 INCH DAILY TRANSDE RM Finasteride (PROSCAR) 5 MG DAILY PO Tamsulosin HCl (Flomax 0.4 mg) 0.4 MG BID PO Docusate Sodium (COLACE) 100 MG BID PO Lactulose (LACTULOSE) 20 GM BID PRN PRN PO Clopidogrel Bisulfate (Plavix) 75 MG BEDTIME PO (DC) Rivaroxaban (XARELTO 20MG) 20 MG DAILY PO (DC) Amlodipine Besylate (NORVASC) 5 MG DAILY PO (DC) Aspirin (ASPIRIN) 81 MG DAILY PO (DC) Metoprolol Tartrate (LOPRESSOR) 25 MG BEDTIME PO Cyanocobalamin (Vitamin B-12 500 mcg tab) 500 MC G DAILY PO Folic Acid (FOLIC ACID) 1 MG DAILY PO Multivitamins (TAB-A-FINESSE) 1 TAB DAILY PO Sterile Water (WATER FOR INJECTION) 1.2 ML ASDIR PRN IV Thiamine HCl (THIAMINE HCL) 100 MG DAILY PO Ziprasidone (GEODON 20MG VIAL) 10 MG Q6H PRN PRN IM I O: 24 hour I O ending at 0700: 07/19 0700 07/18 1900 Intake Total 480 Output Total 400 Balance 80 Intake, Oral 480 Number 1 Bowel Movements Number Voids 2 Output, Urine 400 Nutrition assessment: The data set between the solid lines has been im ported from the dietitian's assessment. Any exceptions have been noted under Provider comments. BMI Calculated: 27.2 Nutrition related diagnosis: Nutrition diagnosis details: Nutrition problem: Nutrition etiology: Nutrition signs and symptoms: Nutrition prescription: Dietitian name: Assessment completed: Provider comments on imported dietitian assessme nt: Physical Exam General appearance: awake LE vascular pulse assess: 1+ R posterior tibialis, 1+ L posterior tibialis , 1+ R dorsalis pedis, 1+ L dorsalis pedis Capillary refill: Capillary refill (in seconds): < 3 seconds Right foot, < 3 seconds Left foot Reflexes: Achilles: 2+ Foot: vascular deficit Musculoskeletal: Musculoskeletal: decreased ROM Neuro/HAND COLLATOR: oriented X 3, no motor deficits Skin: ecchymosis (ecchymosis of left foot), dry Ulcer: Location: foot Type: arterial Appearance: necrotic tissue, Ulcerations to the dorsal 4th toe and plantar hallux have dry stable escha r no localized skin or soft tissue infection noted. Drainage: without odor Results Findings/Data: Laboratory Tests: 07/19 07/18 0400 1500 Chemistry Sodium (134 - 147 mEq/L) 142 Potassium (3.4 - 5.0 mEq/L) 4.1 Chloride (100 - 108 mEq/L) 112 H Carbon Dioxide (21 - 33 mEq/l) 22 Anion Gap (0 - 20) 12 BUN (7 - 18 mg/dL) 12 Creatinine (0.6 - 1.3 mg/dL) 0.9 Glomerular Filtr Rate (70 - 80) 80.2 H Glucose (70 - 110 mg/dL) 109 Calcium (8.0 - 10.5 mg/dL) 8.2 Hematology WBC (4.5 - 11.0 x10 3/uL) 6.9 RBC (4.00 - 5.60 x10 6/uL) 2.80 L Hgb (12.5 - 16.9 g/dL) 8.7 L 8.9 L Hct (37.5 - 50.7 %) 28.2 L 29.0 L MCV (81.0 - 99.0 fL) 100.7 H MCH (27.0 - 33.0 pg) 31.1 MCHC (33.0 - 37.0 g/dL) 30.9 L RDW (11.5 - 14.5 %) 16.4 H Plt Count (150 - 400 x10 3/uL) 263 MPV (7.0 - 9.0 fL) 10.1 H Neut % (Auto) (56.0 - 77.0 %) 56.4 Lymph % (Auto) (14.0 - 32.0 %) 29.5 Person % (Auto) (4.8 - 9.0 %) 10.6 H Eos % (Auto) (0.3 - 3.7 %) 2.5 Baso % (Auto) (0.0 - 2.0 %) 0.6 Neut # (Auto) (2.0 - 7.6 x10 3/uL) 3.87 Lymph # (Auto) (1.0 - 3.8 x10 3/uL) 2.03 Person # (Auto) (0.1 - 0.8 x10 3/uL) 0.73 Eos # (Auto) (0.0 - 0.2 x10 3/uL) 0.17 Baso # (Auto) (0.0 - 0.2 x10 3/uL) 0.04 Abs Immat Gran (auto) (0.00 - 0.03 x10 3/uL) 0. 03 Add Manual Diff NO Immature Gran % (0.0 - 2.0 %) 0.4 Nucleated RBC % (0 - 0 %) 0.0 Nucleated RBCs # (Man) (0.0 - 0.1 x10 3/uL) 0.0 0 Results: labs reviewed Diagnosis, Assessment Plan Free Text A P: PAD b/l LE s/p recent revascularization Ulcerations toes 1 and 4 left foot with dry, sta ble eschar Localized edema b/l LE Injury left foot BETADIEN WTD DAILY LEFT FOOT WBAT VASCULAR CONSULT AND EVAL PAIN CONTROL PT/OT WILL FOLLOW Electronically Signed by Karsten Martines DPM on 06/21 at 0945 RPT #:[id number] END OF REPORT 2021-07-18 13:44:00-00:00 [facility] Cardiology Progress Note REPORT#:[id number] REPORT STATUS: Signed DATE:07/18/21 TIME: 1344 PATIENT: KAYLYNN MISTRY UNIT #: [id number] ROOM/BED: [place] [address] : 35 AGE: 85 SEX: M ATTEND: Vinnie Garcia MD ADM AUTHOR: Katy Jack CNP * ALL edits or amendments must be made on the [employer]/computer document * Subjective Patient reports: No: complaints. Objective General VS/I O: 24 hour I O ending at 0700: 07/18 0700 07/17 1900 Intake Total Output Total 200 Balance -200 Output, Urine 200 Vital Signs: Date Time Temp Pulse Resp B/P B/P Pulse O2 O2 Flow FiO2 Mean Ox Delivery Rate 07/18 1225 36.7 69 18 102/65 77.4 97 Room air 07/18 0827 36.4 66 18 107/80 89.0 96 Room air 07/18 0423 36.6 61 15 108/64 78.4 96 07/18 0012 36.5 70 15 101/61 74.7 98 07/17 1841 36.9 77 15 108/66 80.1 95 07/17 1722 36.5 100 17 115/70 84.8 98 Room air PATIENT WEIGHT: Weight (lb): 184 Weight (oz): Weight (kg): 83.461 Medications: Active Meds + DC'd Last 24 Hrs Pantoprazole (PROTONIX) 40 MG BID AC PO Trazodone HCl (DESYREL) 50 MG BEDTIME PO Nitroglycerin (NITRO-BID) 0.5 INCH DAILY TRANSDE RM Finasteride (PROSCAR) 5 MG DAILY PO Tamsulosin HCl (Flomax 0.4 mg) 0.4 MG BID PO Docusate Sodium (COLACE) 100 MG BID PO Lactulose (LACTULOSE) 20 GM BID PRN PRN PO Doxycycline Monohydrate (DOXYCYCLINE MONOHYDRATE ) 100 MG Q12HR PO (DC) Clopidogrel Bisulfate (Plavix) 75 MG BEDTIME PO (DA) Rivaroxaban (XARELTO 20MG) 20 MG DAILY PO (DA) Amlodipine Besylate (NORVASC) 5 MG DAILY PO (DA) Aspirin (ASPIRIN) 81 MG DAILY PO (DA) Metoprolol Tartrate (LOPRESSOR) 25 MG BEDTIME PO Cyanocobalamin (Vitamin B-12 500 mcg tab) 500 MC G DAILY PO Folic Acid (FOLIC ACID) 1 MG DAILY PO Multivitamins (TAB-A-FINESSE) 1 TAB DAILY PO Sterile Water (WATER FOR INJECTION) 1.2 ML ASDIR PRN IV Thiamine HCl (THIAMINE HCL) 100 MG DAILY PO Ziprasidone (GEODON 20MG VIAL) 10 MG Q6H PRN NM N IM Physical Exam General appearance: chronically ill appearing, a lert, awake Neck: no JVD Cardiovascular: CV assessment: irregularly irregular Respiratory: clear to auscultation, no distress Abdomen: soft, non-tender, normal bowel sounds, no distention Genitourinary: no flank pain, no medina Lower extremity: LE assessment: no edema Musculoskeletal: normal inspection Neuro/HAND COLLATOR: alert, normal speech Skin: poor skin turgor Ulcer: Type/cause: arterial Duration: chronic Location: foot Laterality: left Stage: 3 Psychiatry: normal mood Diagnosis, Assessment Plan Plan discussed with: patient, daughter (Judie), consultants (Dr. Oakley) Free Text DxA P Notes Free Text DxA P Notes: 85 YO male with PMHx of HTN, PAF on chronic anticoagulation, and PAD with prior vascular interventions who is admitted with leg pain and swelling. Today hemoglobin dropped 7.3 from 8.5. Stool is positive for occult blood. GI has been consulted and planning for EGD. Cardiology is co nsulted to evaluate if anticogulation can be discontinued given anemi a nd possible GI bleed. The patient otherwise is awake a nd alert. He denies any palpitation, chest pain, or shortness of breath. He has been refusing teleme try monitor. 1. Chronic atrial fibrillation - rate controlled refusing telemetry continue BB as long as BP stable [id number] score 5 HAS-BLED score 4 Cleared by GI to start AC Start Eliquis 2.5 mg BID and baby ASA 81 mg jerzy y if patient tolerates AC then will schedule watch man tentatively this week 2. PAD with prior vascular interventions/foot ul cers Vascular surgery and podiatry onboard Discussed with Dr. Oakley - he is ok to start Eliquis + baby ASA without Plavix 3. Hypertension BP stable so far continue metoprolol DC amlodipine 4. Anemia/Positive stool OB baseline hgb 14-15 back in April -May 2021 Hgb 7.3->7.1->8.2->10, H/H pending s/p 1 uit PRBC GI following EGD showed esophagitis without bleeding and ec teacher bettina gastritis. Colonoscopy showed nonbleeding external and internal hemorrhoids and diverticulosis in the sigmoid colon and descending colon Case discussed with GI and Vascular surgery. Daughter and patient updated with tx plan NOK: daughter Judie ([phone]) at 1525 RPT #:[id number] END OF REPORT 2021-07-18 13:44:00-00:00 [facility] REPORT#:[id number] REPORT STATUS: Signed DATE:07/18/21 TIME: 1344 PATIENT: KAYLYNN MISTRY UNIT #: [id number] ROOM/BED: 3344-1 : 35 AGE: 85 SEX: M ATTEND: Vinnie Garcia MD ADM AUTHOR: Katy Jack ACNP * ALL edits or amendments must be made on the [employer]/computer document * Subjective Patient reports: No: complaints. Objective General VS/I O: 24 hour I O ending at 0700: 07/18 0700 07/17 1900 Intake Total Output Total 200 Balance -200 Output, Urine 200 Vital Signs: Date Time Temp Pulse Resp B/P B/P Pulse O2 O2 F low FiO2 Mean Ox Delivery Rate 07/18 1225 36.7 69 18 102/65 77.4 97 Room air 07/18 0827 36.4 66 18 107/80 89.0 96 Room air 07/18 0423 36.6 61 15 108/64 78.4 96 07/18 0012 36.5 70 15 101/61 74.7 98 07/17 1841 36.9 77 15 108/66 80.1 95 07/17 1722 36.5 100 17 115/70 84.8 98 Room air PATIENT WEIGHT: Weight (lb): 184 Weight (oz): Weight (kg): 83.461 Medications: Active Meds + DC'd Last 24 Hrs Pantoprazole (PROTONIX) 40 MG BID AC PO Trazodone HCl (DESYREL) 50 MG BEDTIME PO Nitroglycerin (NITRO-BID) 0.5 INCH DAILY TRANSDE RM Finasteride (PROSCAR) 5 MG DAILY PO Tamsulosin HCl (Flomax 0.4 mg) 0.4 MG BID PO Docusate Sodium (COLACE) 100 MG BID PO Lactulose (LACTULOSE) 20 GM BID PRN PRN PO Doxycycline Monohydrate (DOXYCYCLINE MONOHYDRATE ) 100 MG Q12HR PO (DC) Clopidogrel Bisulfate (Plavix) 75 MG BEDTIME PO (DA) Rivaroxaban (XARELTO 20MG) 20 MG DAILY PO (DA) Amlodipine Besylate (NORVASC) 5 MG DAILY PO (DA) Aspirin (ASPIRIN) 81 MG DAILY PO (DA) Metoprolol Tartrate (LOPRESSOR) 25 MG BEDTIME PO Cyanocobalamin (Vitamin B-12 500 mcg tab) 500 MC G DAILY PO Folic Acid (FOLIC ACID) 1 MG DAILY PO Multivitamins (TAB-A-FINESSE) 1 TAB DAILY PO Sterile Water (WATER FOR INJECTION) 1.2 ML ASDIR PRN IV Thiamine HCl (THIAMINE HCL) 100 MG DAILY PO Ziprasidone (GEODON 20MG VIAL) 10 MG Q6H PRN PRN IM Physical Exam General appearance: chronically ill appearing, a lert, awake Neck: no JVD Cardiovascular: CV assessment: irregularly irregular Respiratory: clear to auscultation, no distress Abdomen: soft, non-tender, normal bowel sounds, no distention Genitourinary: no flank pain, no medina Lower extremity: LE assessment: no edema Musculoskeletal: normal inspection Neuro/HAND COLLATOR: alert, normal speech Skin: poor skin turgor Ulcer: Type/cause: arterial Duration: chronic Location: foot Laterality: left Stage: 3 Psychiatry: normal mood Diagnosis, Assessment Plan Plan discussed with: patient, daughter (Judie), consultants (Dr. Oakley) Free Text DxA P Notes Free Text DxA P Notes: 85 YO male with PMHx of HTN, PAF on chronic anticoagulation, and PAD with prior vascular interventions who is admitted with leg pain and swelling. Today hemoglobin dropped 7.3 from 8.5. Stool is positive for occult blood. GI has been consulted and planning for EGD. Cardiology is co nsulted to evaluate if anticogulation can be discontinued given anemi a nd possible GI bleed. The patient otherwise is awake a nd alert. He denies any palpitation, chest pain, or shortness of breath. He has been refusing teleme try monitor. 1. Chronic atrial fibrillation - rate controlled refusing telemetry continue BB as long as BP stable [id number] score 5 HAS-BLED score 4 Cleared by GI to start AC Start Eliquis 2.5 mg BID and baby ASA 81 mg jerzy y if patient tolerates AC then will schedule watch man tentatively this week 2. PAD with prior vascular interventions/foot ul cers Vascular surgery and podiatry onboard Discussed with Dr. Oakley - he is ok to start Eliquis + baby ASA without Plavix 3. Hypertension BP stable so far continue metoprolol DC amlodipine 4. Anemia/Positive stool OB baseline hgb 14-15 back in April -May 2021 Hgb 7.3->7.1->8.2->10, H/H pending s/p 1 uit PRBC GI following EGD showed esophagitis without bleeding and ec teacher bettina gastritis. Colonoscopy showed nonbleeding external and internal hemorrhoids and diverticulosis in the sigmoid colon and descending colon Case discussed with GI and Vascular surgery. Daughter and patient updated with tx plan NOK: daughter Judie ([phone]) at 1525 Electronically Signed by Antonina Day MD on at 0819 RPT #:[id number] END OF REPORT 2021-07-18 13:39:00-00:00 [facility] RE[facility]#:[id number] REPORT STATUS: Signed DATE:07/18/21 TIME: 1339 PATIENT: KAYLYNN MISTRY UNIT #: [id number] ROOM/BED: [place] [address] : 35 AGE: 85 SEX: M ATTEND: Vinnie Garcia MD ADM AUTHOR: Megan Garcia NP * ALL edits or amendments must be made on the el [employer]/computer document * Subjective Chief complaint: No WALTERS/N/V/D 14 systems reviewed and negative except that men tioned above. still with weakness, but feels fine, states he w ould l like to go home +BMs Objective General VS: Vital Signs: Date Time Temp Pulse Resp B/P B/P Pulse O2 O2 F low FiO2 Mean Ox Delivery Rate 07/18 1225 98.1 69 18 102/65 77.4 97 Room air 07/18 0827 97.5 66 18 107/80 89.0 96 Room air 07/18 0423 97.9 61 15 108/64 78.4 96 07/18 0012 97.7 70 15 101/61 74.7 98 07/17 1841 98.4 77 15 108/66 80.1 95 07/17 1722 97.7 100 17 115/70 84.8 98 Room air PATIENT WEIGHT: Weight (lb): 184 Weight (oz): Weight (kg): 83.461 Medications: Active Meds + DC'd Last 24 Hrs Pantoprazole (PROTONIX) 40 MG BID AC PO Trazodone HCl (DESYREL) 50 MG BEDTIME PO Nitroglycerin (NITRO-BID) 0.5 INCH DAILY TRANSDE RM Finasteride (PROSCAR) 5 MG DAILY PO Tamsulosin HCl (Flomax 0.4 mg) 0.4 MG BID PO Docusate Sodium (COLACE) 100 MG BID PO Lactulose (LACTULOSE) 20 GM BID PRN PRN PO Doxycycline Monohydrate (DOXYCYCLINE MONOHYDRATE ) 100 MG Q12HR PO (DC) Clopidogrel Bisulfate (Plavix) 75 MG BEDTIME PO (DA) Rivaroxaban (XARELTO 20MG) 20 MG DAILY PO (DA) Amlodipine Besylate (NORVASC) 5 MG DAILY PO (DA) Aspirin (ASPIRIN) 81 MG DAILY PO (DA) Metoprolol Tartrate (LOPRESSOR) 25 MG BEDTIME PO Cyanocobalamin (Vitamin B-12 500 mcg tab) 500 MC G DAILY PO Folic Acid (FOLIC ACID) 1 MG DAILY PO Multivitamins (TAB-A-FNIESSE) 1 TAB DAILY PO Sterile Water (WATER FOR INJECTION) 1.2 ML ASDIR PRN IV Thiamine HCl (THIAMINE HCL) 100 MG DAILY PO Ziprasidone (GEODON 20MG VIAL) 10 MG Q6H PRN PRN IM Physical Exam General appearance: alert, awake Psych: alert, normal affect, oriented x 3 HEENT: anicteric, sclera clear Neck: supple, no JVD Cardiovascular: regular rate rhythm, S1/S2 Respiratory: aerating well, clear bilaterally Abdomen: bowel sounds present, non-distended, so ft Skin: no rash, ulcers to hallux and 4th toe Ulcer: Type/cause: arterial Duration: chronic Location: foot Laterality: left Stage: 3 Musculoskeletal - general: Musculoskeletal - general: joints normal, charan l muscle mass Neuro/HAND COLLATOR: alert, oriented X 3, CNII-XII intact Results Findings/Data: Laboratory Tests: 07/18 1500 Hematology Hgb (12.5 - 16.9 g/dL) 8.9 L Hct (37.5 - 50.7 %) 29.0 L Diagnosis, Assessment Plan Free Text A P: Generalized weakness Impaired mobility and gait Anemia PAD Ulcerations toes 1 and 4 left foot Hypertension Atrial fibrillation Alcohol use Plan: Continue PT/OT Out of bed to chair Work on strength, bed mobility, transfers, gait Increase endurance Fall precautions Monitor p.o. intake and nutrition Strict decubitus precautions Continue wound care and antibiotics Psych on case Going for EGD/colonoscopy today for + FOBT and w orsening anemia Advance therapies as tolerated IRF consulted Pt not working well with therapy S/p EGD and colonoscopy Found to have gastritis esophagitis and some div erticulosis but no bleeding Will wait for GI clearance before starting antic oagulation and antiplatelets Cardiology planning Procedure They are to discus s with GI and once patient is clear to resume antiplatelet will schedule patie nt for Amulet this coming Sunday07/18/2021 Reason Patient Unable to Perform: Refused by [place] price COMMENTS: Pt STATING HE HAS SURGERY IN 30 MIN. CONFIRMED WITH RN, Pt DOESN'T HAVE SX SCHEDULED. AFTER CLARIFICATION AND REDIRECTION, Pt STATES "WELL, I DON'T WANT THERAPY. I JUST WANT TO GO HOME." 07/15/21 COMMENTS: Pt REFUSED "I FEEL HORRIBLE TODAY." R Phan GOMEZ. WILL F/U LATER. Total time was 35 minutes > 50% with patient per forming physical examination, discussing plan of care, goals, therapies, progr ess, medications, labs. All questions answered Rehab attestation: Face to face exam completed. Treatment plan disc ussed with patient. at 1315 RPT #:[id number] END OF REPORT 2021-07-18 12:46:00-00:00 [facility] Hospitalist Progress Note REPORT#:[id number] REPORT STATUS: Signed DATE:07/18/21 TIME: 1246 PATIENT: KAYLYNN MISTRY UNIT #: [id number] ROOM/BED: [place] [address] : 35 AGE: 85 SEX: M ATTEND: Vinnie Garcia MD ADM AUTHOR: Adry Ortiz MD * ALL edits or amendments must be made on the el [employer]/computer document * Subjective Chief complaint: Pt seen and exam'd. Events noted. Following up l eg pain, confusion. Less confusion/ agitation today. Review of Systems Constitutional: Reports: generalized weakness. All systems rev neg: except as marked Objective General VS/I O: Vital Signs: Date Time Temp Pulse Resp B/P B/P Pulse O2 O2 Flow FiO2 Mean Ox Delivery Rate 07/18 1225 98.1 69 18 102/65 77.4 97 Room air 07/18 0827 97.5 66 18 107/80 89.0 96 Room air 07/18 0423 97.9 61 15 108/64 78.4 96 07/18 0012 97.7 70 15 101/61 74.7 98 07/17 1841 98.4 77 15 108/66 80.1 95 07/17 1722 97.7 100 17 115/70 84.8 98 Room air 07/17 1320 98.4 53 17 123/77 92.5 99 Room air 24 hour I O ending at 0700: 07/18 0700 07/17 1900 Intake Total Output Total 200 Balance -200 Output, Urine 200 PATIENT WEIGHT: Weight (lb): 184 Weight (oz): Weight (kg): 83.461 Medications: Active Meds + DC'd Last 24 Hrs Pantoprazole (PROTONIX) 40 MG BID AC PO Trazodone HCl (DESYREL) 50 MG BEDTIME PO Nitroglycerin (NITRO-BID) 0.5 INCH DAILY TRANSDE RM Finasteride (PROSCAR) 5 MG DAILY PO Tamsulosin HCl (Flomax 0.4 mg) 0.4 MG BID PO Docusate Sodium (COLACE) 100 MG BID PO Lactulose (LACTULOSE) 20 GM BID PRN PRN PO Doxycycline Monohydrate (DOXYCYCLINE MONOHYDRATE ) 100 MG Q12HR PO (DC) Clopidogrel Bisulfate (Plavix) 75 MG BEDTIME PO (DA) Rivaroxaban (XARELTO 20MG) 20 MG DAILY PO (DA) Amlodipine Besylate (NORVASC) 5 MG DAILY PO (DA) Aspirin (ASPIRIN) 81 MG DAILY PO (DA) Metoprolol Tartrate (LOPRESSOR) 25 MG BEDTIME PO Cyanocobalamin (Vitamin B-12 500 mcg tab) 500 MC G DAILY PO Folic Acid (FOLIC ACID) 1 MG DAILY PO Multivitamins (TAB-A-FINESSE) 1 TAB DAILY PO Sterile Water (WATER FOR INJECTION) 1.2 ML ASDIR PRN IV Thiamine HCl (THIAMINE HCL) 100 MG DAILY PO Ziprasidone (GEODON 20MG VIAL) 10 MG Q6H PRN PRN IM Nutrition assessment: The data set between the solid lines has been im ported from the dietitian's assessment. Any exceptions have been noted under Provider comments. BMI Calculated: 27.4 Nutrition related diagnosis: Nutrition diagnosis details: Nutrition problem: Nutrition etiology: Nutrition signs and symptoms: Nutrition prescription: Dietitian name: Assessment completed: Provider comments on imported dietitian assessme nt: Physical Exam Head/Eyes: atraumatic, EOMI, normocephalic, PERR L ENT: moist mucosal membranes Neck: full range of motion, non-tender Cardiovascular: normal heart sounds, regular rat e rhythm Respiratory: aerating well, clear to auscultatio n Abdomen: non-tender, normal bowel sounds, soft, no distention Genitourinary: no bladder distention Extremities: no clubbing, no cyanosis, no edema Skin: no rash Ulcer: Type/cause: arterial Duration: chronic Location: foot Laterality: left Stage: 3 Diagnosis, Assessment Plan Free Text DxA P Notes Free text DxA P notes: 1. Left lower extremity swelling. 2. Peripheral vascular disease. 3. Atrial fibrillation. 4. Foot wounds. 5. Questionable history of syncope. 6. Alcohol use. 7. Benign prostatic hypertrophy. 8. Hypertension. 9. Likely dementia. Improving mentation, continue to monitor. Pain/ discomfort related to reperfusion. Empiric abx. Swelling improving. Continue med tx. Monitor BP/ HR. Foot wound care. Appreciate Psych, Vasc, Pod input. Start PT/OT. CM to assist with dc planning. Urinary symptoms possible related to BPH; Add Av odart and increase Flomax. d/w dtr, all questions answered. 07/13/2021 Patient with left leg patrick ng, peripheral vascular disease, A. fib, foot wounds , BPH, hypertension Mental status much better today He states he feels depressed and misses his who 12 years ago Psych has been consulted PT/OT on board Vitals reviewed acceptable Labs reviewed acceptable Encouraged PT/OT PMNR consulted as patient st ates that he lives at home and wants to return back home when better 07/14/21 doing ok vitals reviewed-some hypotension today stop losartan and amlodipine Labs reviewed-Hb dropped stool OB requested and reported positive GI consulted hold xarelto and asa and plavix cardio consulted for further recommendations patient has 2 daughters, both son in law at bedside today and patient in their presence okaying rehab [facility] consulted PMNR help appreciated CM to help with rehab arrangement, preferable pr ivate bed/not a shared room repeat labs in am 07/15/21 doing ok vitals reviewed-BP low labs reviewed-Hb lower than yesterday holding xarelto and ASA and plavix cardio has evaluated the patient GI help appreciated EGD/Colonoscopy in plan Iron studies requested will give one unit PRBC today as anemic and hypo tensive PMNR following, will dc to rehab once medically cleared 07/16/2021 Patient is doing okay Vitals reviewed blood pressure still low Labs reviewed hemoglobin better after transfusio n Still aspirin Plavix and Xarelto is on hold GI help appreciated S/p EGD and colonoscopy Found to have gastritis esophagitis and some div erticulosis but no bleeding Will wait for GI clearance before starting antic oagulation and antiplatelets Waiting on cardio recommendations which ones to start Discharge to inpatient rehab once medically ceciamandeep lopez 07/17/21 doing ok wants to go home nurse present in room during visit cardio has discussed with daughter, needs LAP off antiplatelets for now for dropping Hb Hb better now will get GI opinion about restarting antiplatele ts then he needs rehab, patient agreed infront of f amily but not wanting it now will discuss again once medically ready 07/18/21 doing ok sitting up in chair better mood today and understanding his illnesse s vitals reviewed-BP lowinsh Labs-no new today Hb was 10 yesterday antiplatlets and anticoag still on hold cardio waiting on GI to ok to restart d/w GI going for LAP occlusion on ed as cardio note, not scheduled on chart yet am labs requested Electronically Signed by Adry Ortiz MD on 07/18 at 1251 RPT #:[id number] END OF REPORT 2021-07-18 10:03:00-00:00 [facility] Gastroenterology Progress Note REPORT#:[id number] REPORT STATUS: Signed DATE:07/18/21 TIME: 1003 PATIENT: KAYLYNN MISTRY UNIT #: [id number] [place] [facility] [place] AGE: 85 SEX: M ATTEND: Vinnie Garcia MD ADM AUTHOR: Henry Douglas * ALL edits or amendments must be made on the [employer]/computer document * Henry Douglas 07/18/21 1003: Subjective Comments: No overt gi bleeding. Tolerating PO. No abdomina l pain, nausea, or vomiting Review of Systems Additional notes: 10 point ros neg except hpi Objective General VS/I O: Last Documented: Result Date Time Pulse Ox 96 07/18 826 B/P 107/80 07/18 826 B/P Mean 89.0 07/18 826 O2 Delivery Room air 07/18 826 Temp 97.5 07/18 08 Pulse 66 07/18 08 Resp 18 07/18 826 O2 Flow Rate 0 07/15 1525 24 hour I O ending at 0700: 07/18 0700 07/17 1900 Intake Total Output Total 200 Balance -200 Output, Urine 200 PATIENT WEIGHT: Weight (lb): 184 Weight (oz): Weight (kg): 83.461 Medications: Active Meds + DC'd Last 24 Hrs Trazodone HCl (DESYREL) 50 MG BEDTIME PO Trazodone HCl (DESYREL) 25 MG BEDTIME PRN PRN PO (DC) Nitroglycerin (NITRO-BID) 0.5 INCH DAILY TRANSDE RM Finasteride (PROSCAR) 5 MG DAILY PO Tamsulosin HCl (Flomax 0.4 mg) 0.4 MG BID PO Docusate Sodium (COLACE) 100 MG BID PO Lactulose (LACTULOSE) 20 GM BID PRN PRN PO Doxycycline Monohydrate (DOXYCYCLINE MONOHYDRATE ) 100 MG Q12HR PO (DC) Clopidogrel Bisulfate (Plavix) 75 MG BEDTIME PO (DA) Rivaroxaban (XARELTO 20MG) 20 MG DAILY PO (DA) Amlodipine Besylate (NORVASC) 5 MG DAILY PO (DA) Aspirin (ASPIRIN) 81 MG DAILY PO (DA) Metoprolol Tartrate (LOPRESSOR) 25 MG BEDTIME PO Cyanocobalamin (Vitamin B-12 500 mcg tab) 500 MC G DAILY PO Folic Acid (FOLIC ACID) 1 MG DAILY PO Multivitamins (TAB-A-FINESSE) 1 TAB DAILY PO Sterile Water (WATER FOR INJECTION) 1.2 ML ASDIR PRN IV Thiamine HCl (THIAMINE HCL) 100 MG DAILY PO Ziprasidone (GEODON 20MG VIAL) 10 MG Q6H PRN PRN IM Physical Exam General appearance: alert, awake HEENT: abnl conjunctiva/sclera, dry mucosal memb ranes Neck: decreased range of motion Cardiovascular: normal capillary refill, regular rate rhythm Respiratory: aerating well, symmetric expansion Abdomen: non-tender Extremities: decreased range of motion Musculoskeletal: decreased ROM Neuro/HAND COLLATOR: alert Skin: abnormal color, abnormal temperature, ecch ymosis Ulcer: Type/cause: arterial Duration: chronic Location: foot Laterality: left Stage: 3 Results Findings/Data: Laboratory Tests 07/17/21 1314: [Embedded Image Not Available] Laboratory Tests 07/17 1314 Chemistry Sodium (134 - 147 mEq/L) 140 Potassium (3.4 - 5.0 mEq/L) 4.4 Chloride (100 - 108 mEq/L) 110 H Carbon Dioxide (21 - 33 mEq/l) 27 Anion Gap (0 - 20) 7 BUN (7 - 18 mg/dL) 15 Creatinine (0.6 - 1.3 mg/dL) 0.9 Glomerular Filtr Rate (70 - 80) 80.2 H Glucose (70 - 110 mg/dL) 106 Calcium (8.0 - 10.5 mg/dL) 8.7 Laboratory Tests 07/17 1314 Hematology WBC (4.5 - 11.0 x10 3/uL) 8.1 RBC (4.00 - 5.60 x10 6/uL) 3.30 L Hgb (12.5 - 16.9 g/dL) 10.0 L Hct (37.5 - 50.7 %) 32.4 L MCV (81.0 - 99.0 fL) 98.2 MCH (27.0 - 33.0 pg) 30.3 MCHC (33.0 - 37.0 g/dL) 30.9 L RDW (11.5 - 14.5 %) 16.0 H Plt Count (150 - 400 x10 3/uL) 374 MPV (7.0 - 9.0 fL) 9.4 H Neut % (Auto) (56.0 - 77.0 %) 62.8 Lymph % (Auto) (14.0 - 32.0 %) 27.5 Person % (Auto) (4.8 - 9.0 %) 7.0 Eos % (Auto) (0.3 - 3.7 %) 1.5 Baso % (Auto) (0.0 - 2.0 %) 0.7 Neut # (Auto) (2.0 - 7.6 x10 3/uL) 5.10 Lymph # (Auto) (1.0 - 3.8 x10 3/uL) 2.23 Person # (Auto) (0.1 - 0.8 x10 3/uL) 0.57 Eos # (Auto) (0.0 - 0.2 x10 3/uL) 0.12 Baso # (Auto) (0.0 - 0.2 x10 3/uL) 0.06 Abs Immat Gran (auto) (0.00 - 0.03 x10 3/uL) 0. 04 H Add Manual Diff NO Immature Gran % (0.0 - 2.0 %) 0.5 Nucleated RBC % (0 - 0 %) 0.0 Nucleated RBCs # (Man) (0.0 - 0.1 x10 3/uL) 0.0 0 Diagnosis, Assessment Plan Free Text A P: worsening anemia FOBT+ delirium, improved chronic anticoagulation chronic antiplatelet therapy coagulopathy - monitor h/h, transfuse as needed - monitor for overt gi bleeding - diet as tolerated - benefits > risks for Amule t/left atrial appendage occlusion device for atiral fibrillation - moderate risk of bleeding with antiplatelet therapy/anticoagulation in view of egd findings - continue with ppi bid - Dr. Jerez discussed with cardiology regarding an tiplatelet therapy and anticoagulation - agree with cardiology plan of care Alfredito Jerez 07/18/211947: Attestations Physician Attestation Agree w/findings plan: I examined the patient and agree with the findin gs and plan as documented by Misael MORATAYA; Electronically Signed by Henry Douglas on at 1425 Electronically Signed by Alfredito Jerez MD on at 1949 RPT #:[id number] END OF REPORT 2021-07-17 16:07:00-00:00 [facility] Hospitalist Progress Note REPORT#:[id number] REPORT STATUS: Signed DATE:07/17/21 TIME: 1607 PATIENT: KAYLYNN MISTRY UNIT #: [id number] ROOM/BED: [place] [id number] : 35 AGE: 85 SEX: M ATTEND: Vinnie Garcia MD ADM AUTHOR: Adry Ortiz MD * ALL edits or amendments must be made on the [employer]/computer document * Subjective Chief complaint: Pt seen and exam'd. Events noted. Following up l eg pain, confusion. Less confusion/ agitation today. Review of Systems Constitutional: Reports: generalized weakness. All systems rev neg: except as marked Objective General VS/I O: Vital Signs: Date Time Temp Pulse Resp B/P B/P Pulse O2 O2 F low FiO2 Mean Ox Delivery Rate 07/17 1320 98.4 53 17 123/77 92.5 99 Room air 07/17 0800 98.2 69 17 124/73 89.8 98 Room air 07/17 0516 97.7 60 16 134/80 97.7 97 Room air 07/17 0104 97.7 57 16 113/80 90.8 97 Room air 07/16 2032 98.4 73 16 111/70 83.8 97 Room air 07/16 1754 98.1 79 15 95/54 67.4 99 Room air 24 hour I O ending at 0700: 04/17 0700 07/16 1900 Intake Total Output Total Balance Number 1 Incontinent Voids PATIENT WEIGHT: Weight (lb): 184 Weight (oz): Weight (kg): 83.461 Medications: Active Meds + DC'd Last 24 Hrs Trazodone HCl (DESYREL) 50 MG BEDTIME PO Trazodone HCl (DESYREL) 25 MG BEDTIME PRN PRN PO (DC) Nitroglycerin (NITRO-BID) 0.5 INCH DAILY TRANSDE RM Finasteride (PROSCAR) 5 MG DAILY PO Tamsulosin HCl (Flomax 0.4 mg) 0.4 MG BID PO Docusate Sodium (COLACE) 100 MG BID PO Lactulose (LACTULOSE) 20 GM BID PRN PRN PO Doxycycline Monohydrate (DOXYCYCLINE MONOHYDRATE ) 100 MG Q12HR PO Clopidogrel Bisulfate (Plavix) 75 MG BEDTIME PO (DA) Rivaroxaban (XARELTO 20MG) 20 MG DAILY PO (DA) Amlodipine Besylate (NORVASC) 5 MG DAILY PO (DA) Aspirin (ASPIRIN) 81 MG DAILY PO (DA) Metoprolol Tartrate (LOPRESSOR) 25 MG BEDTIME PO Cyanocobalamin (Vitamin B-12 500 mcg tab) 500 MC G DAILY PO Folic Acid (FOLIC ACID) 1 MG DAILY PO Multivitamins (TAB-A-FINESSE) 1 TAB DAILY PO Sterile Water (WATER FOR INJECTION) 1.2 ML ASDIR PRN IV Thiamine HCl (THIAMINE HCL) 100 MG DAILY PO Ziprasidone (GEODON 20MG VIAL) 10 MG Q6H PRN PRN IM Nutrition assessment: The data set between the solid lines has been im ported from the dietitian's assessment. Any exceptions have been noted under Provider comments. BMI Calculated: 27.4 Nutrition related diagnosis: Nutrition diagnosis details: Nutrition problem: Nutrition etiology: Nutrition signs and symptoms: Nutrition prescription: Dietitian name: Assessment completed: Provider comments on imported dietitian assessme nt: Physical Exam General appearance: alert, awake, oriented Head/Eyes: atraumatic, EOMI, normocephalic, PERR L ENT: moist mucosal membranes Neck: full range of motion, non-tender Cardiovascular: normal heart sounds, regular rat e rhythm Respiratory: aerating well, clear to auscultatio n Abdomen: non-tender, normal bowel sounds, soft, no distention Genitourinary: no bladder distention Extremities: no clubbing, no cyanosis, no edema Skin: no rash Ulcer: Type/cause: arterial Duration: chronic Location: foot Laterality: left Stage: 3 Results Findings/Data: Laboratory Tests 07/17 1314 Chemistry Sodium (134 - 147 mEq/L) 140 Potassium (3.4 - 5.0 mEq/L) 4.4 Chloride (100 - 108 mEq/L) 110 H Carbon Dioxide (21 - 33 mEq/l) 27 Anion Gap (0 - 20) 7 BUN (7 - 18 mg/dL) 15 Creatinine (0.6 - 1.3 mg/dL) 0.9 Glomerular Filtr Rate (70 - 80) 80.2 H Glucose (70 - 110 mg/dL) 106 Calcium (8.0 - 10.5 mg/dL) 8.7 Laboratory Tests 07/17 1314 Hematology WBC (4.5 - 11.0 x10 3/uL) 8.1 RBC (4.00 - 5.60 x10 6/uL) 3.30 L Hgb (12.5 - 16.9 g/dL) 10.0 L Hct (37.5 - 50.7 %) 32.4 L MCV (81.0 - 99.0 fL) 98.2 MCH (27.0 - 33.0 pg) 30.3 MCHC (33.0 - 37.0 g/dL) 30.9 L RDW (11.5 - 14.5 %) 16.0 H Plt Count (150 - 400 x10 3/uL) 374 MPV (7.0 - 9.0 fL) 9.4 H Neut % (Auto) (56.0 - 77.0 %) 62.8 Lymph % (Auto) (14.0 - 32.0 %) 27.5 Person % (Auto) (4.8 - 9.0 %) 7.0 Eos % (Auto) (0.3 - 3.7 %) 1.5 Baso % (Auto) (0.0 - 2.0 %) 0.7 Neut # (Auto) (2.0 - 7.6 x10 3/uL) 5.10 Lymph # (Auto) (1.0 - 3.8 x10 3/uL) 2.23 Person # (Auto) (0.1 - 0.8 x10 3/uL) 0.57 Eos # (Auto) (0.0 - 0.2 x10 3/uL) 0.12 Baso # (Auto) (0.0 - 0.2 x10 3/uL) 0.06 Abs Immat Gran (auto) (0.00 - 0.03 x10 3/uL) 0. 04 H Add Manual Diff NO Immature Gran % (0.0 - 2.0 %) 0.5 Nucleated RBC % (0 - 0 %) 0.0 Nucleated RBCs # (Man) (0.0 - 0.1 x10 3/uL) 0.0 0 Diagnosis, Assessment Plan Free Text DxA P Notes Free text DxA P notes: 1. Left lower extremity swelling. 2. Peripheral vascular disease. 3. Atrial fibrillation. 4. Foot wounds. 5. Questionable history of syncope. 6. Alcohol use. 7. Benign prostatic hypertrophy. 8. Hypertension. 9. Likely dementia. Improving mentation, continue to monitor. Pain/ discomfort related to reperfusion. Empiric abx. Swelling improving. Continue med tx. Monitor BP/ HR. Foot wound care. Appreciate Psych, Vasc, Pod input. Start PT/OT. CM to assist with dc planning. Urinary symptoms possible related to BPH; Add Av odart and increase Flomax. d/w dtr, all questions answered. 07/13/2021 Patient with left leg swelli ng, peripheral vascular disease, A. fib, foot wounds , BPH, hypertension Mental status much better today He states he feels depressed and misses his who 12 years ago Psych has been consulted PT/OT on board Vitals reviewed acceptable Labs reviewed acceptable Encouraged PT/OT PMNR consulted as patient st ates that he lives at home and wants to return back home when better 07/14/21 doing ok vitals reviewed-some hypotension today stop losartan and amlodipine Labs reviewed-Hb dropped stool OB requested and reported positive GI consulted hold xarelto and asa and plavix cardio consulted for further recommendations patient has 2 daughters, both son in law at bedside today and patient in their presence okaying rehab [facility] consulted PMNR help appreciated CM to help with rehab arrangement, preferable pr ivate bed/not a shared room repeat labs in am 07/15/21 doing ok vitals reviewed-BP low labs reviewed-Hb lower than yesterday holding xarelto and ASA and plavix cardio has evaluated the patient GI help appreciated EGD/Colonoscopy in plan Iron studies requested will give one unit PRBC today as anemic and hypo tensive PMNR following, will dc to rehab once medically cleared 07/16/2021 Patient is doing okay Vitals reviewed blood pressure still low Labs reviewed hemoglobin better after transfusio n Still aspirin Plavix and Xarelto is on hold GI help appreciated S/p EGD and colonoscopy Found to have gastritis esophagitis and some div erticulosis but no bleeding Will wait for GI clearance before starting antic oagulation and antiplatelets Waiting on cardio recommendations which ones to start Discharge to inpatient rehab once medically ceci red 07/17/21 doing ok wants to go home nurse present in room during visit cardio has discussed with daughter, needs LAP off antiplatelets for now for dropping Hb Hb better now will get GI opinion about restarting antiplatele ts then he needs rehab, patient agreed infront of f amily but not wanting it now will discuss again once medically ready Electronically Signed by Adry Ortiz MD on 07/17 at 1621 RPT #:[id number] END OF REPORT 2021-07-17 12:00:00-00:00 [facility] ([facility]) Podiatry Progress Note REPORT#:[id number] REPORT STATUS: Signed DATE:07/17/21 TIME: 1200 PATIENT: KAYLYNN MISTRY UNIT #: [id number] [place] [facility] [place] AGE: 85 SEX: M ATTEND: Vinnie Garcia MD ADM AUTHOR: Karsten Martines DPM * ALL edits or amendments must be made on the [employer]/computer document * General VS/I O: Last Documented: Result Date Time Pulse Ox 98 07/17 0800 B/P 124/73 07/17 0800 B/P Mean 89.8 07/17 0800 O2 Delivery Room air 07/17 0800 Temp 36.8 07/17 0800 Pulse 69 07/17 0800 Resp 07/17 0800 O2 Flow Rate 0 07/15 1525 24 hour I O ending at 0700: 07/17 0700 07/16 1900 Intake Total Output Total Balance Number 1 Incontinent Voids PATIENT WEIGHT: Weight (lb): 184 Weight (oz): Weight (kg): 83.461 Subjective Chief complaint: ulceration left Objective General VS: Last Documented: Result Date Time Pulse Ox 98 07/17 0800 B/P 124/73 07/17 0800 B/P Mean 89.8 07/17 0800 O2 Delivery Room air 07/17 0800 Temp 36.8 07/17 0800 Pulse 69 07/17 0800 Resp 07/17 0800 O2 Flow Rate 0 07/15 1525 PATIENT WEIGHT: Weight (lb): 184 Weight (oz): Weight (kg): 83.461 Medications: Active Meds + DC'd Last 24 Hrs Trazodone HCl (DESYREL) 50 MG BEDTIME PO Trazodone HCl (DESYREL) 25 MG BEDTIME PRN PRN PO (DC) Nitroglycerin (NITRO-BID) 0.5 INCH DAILY TRANSDE RM Finasteride (PROSCAR) 5 MG DAILY PO Tamsulosin HCl (Flomax 0.4 mg) 0.4 MG BID PO Docusate Sodium (COLACE) 100 MG BID PO Lactulose (LACTULOSE) 20 GM BID PRN PRN PO Doxycycline Monohydrate (DOXYCYCLINE MONOHYDRATE ) 100 MG Q12HR PO Clopidogrel Bisulfate (Plavix) 75 MG BEDTIME PO (DA) Rivaroxaban (XARELTO 20MG) 20 MG DAILY PO (DA) Amlodipine Besylate (NORVASC) 5 MG DAILY PO (DA) Aspirin (ASPIRIN) 81 MG DAILY PO (DA) Metoprolol Tartrate (LOPRESSOR) 25 MG BEDTIME PO Cyanocobalamin (Vitamin B-12 500 mcg tab) 500 MC G DAILY PO Folic Acid (FOLIC ACID) 1 MG DAILY PO Multivitamins (TAB-A-FINESSE) 1 TAB DAILY PO Sterile Water (WATER FOR INJECTION) 1.2 ML ASDIR PRN IV Thiamine HCl (THIAMINE HCL) 100 MG DAILY PO Ziprasidone (GEODON 20MG VIAL) 10 MG Q6H PRN PRN IM I O: 24 hour I O ending at 0700: 07/17 0700 07/16 1900 Intake Total Output Total Balance Number 1 Incontinent Voids Nutrition assessment: The data set between the solid lines has been im ported from the dietitian's assessment. Any exceptions have been noted under Provider comments. BMI Calculated: 27.4 Nutrition related diagnosis: Nutrition diagnosis details: Nutrition problem: Nutrition etiology: Nutrition signs and symptoms: Nutrition prescription: Dietitian name: Assessment completed: Provider comments on imported dietitian assessme nt: Physical Exam General appearance: awake LE vascular pulse assess: 1+ R posterior tibialis, 1+ L posterior tibialis , 1+ R dorsalis pedis, 1+ L dorsalis pedis Capillary refill: Capillary refill (in seconds): < 3 seconds Right foot, < 3 seconds Left foot Reflexes: Achilles: 2+ Foot: vascular deficit Musculoskeletal: Musculoskeletal: decreased ROM Neuro/HAND COLLATOR: oriented X 3, no motor deficits Skin: ecchymosis (ecchymosis of left foot), dry Ulcer: Location: foot Type: arterial Appearance: necrotic tissue, Ulcerations to the dorsal 4th toe and plantar hallux have dry stable escha r no localized skin or soft tissue infection noted. Drainage: without odor Results Results: labs reviewed Diagnosis, Assessment Plan Free Text A P: PAD b/l LE s/p recent revascularization Ulcerations toes 1 and 4 left foot with dry, sta ble eschar Localized edema b/l LE Injury left foot BETADIEN WTD DAILY LEFT FOOT WBAT VASCULAR CONSULT AND EVAL PAIN CONTROL PT/OT WILL FOLLOW Electronically Signed by Karsten Martines DPM on 06/21 at 0943 RPT #:[id number] END OF REPORT 2021-07-17 09:49:00-00:00 [facility] Progress Note REPORT#:[id number] REPORT STATUS: Signed DATE:07/17/21 TIME: 09 PATIENT: KAYLYNN MISTRY UNIT #: [id number] RO[address]BED: [address] : 35 AGE: 85 SEX: M ATTEND: Vinnie Garcia MD ADM AUTHOR: Katy Jack RESEARCH GEOLOGIST * ALL edits or amendments must be made on the [employer] document * Subjective Patient reports: No: complaints. Objective General VS/I O: 24 hour I O ending at 0700: 07/17 0700 07/16 1900 Intake Total Output Total Balance Number 1 Incontinent Voids Vital Signs: Date Time Temp Pulse Resp B/P B/P Pulse O2 O2 F low FiO2 Mean Ox Delivery Rate 07/17 0800 36.8 69 17 124/73 89.8 98 Room air 07/17 0516 36.5 60 16 134/80 97.7 97 Room air 07/17 0104 36.5 57 16 113/80 90.8 97 Room air 07/16 2032 36.9 73 16 111/70 83.8 97 Room air 07/16 1754 36.7 79 15 95/54 67.4 99 Room air 07/16 1348 36.7 77 15 91/61 70.9 100 Room air PATIENT WEIGHT: Weight (lb): 184 Weight (oz): Weight (kg): 83.461 Medications: Active Meds + DC'd Last 24 Hrs Trazodone HCl (DESYREL) 25 MG BEDTIME PRN PRN PO Nitroglycerin (NITRO-BID) 0.5 INCH DAILY TRANSDE RM Finasteride (PROSCAR) 5 MG DAILY PO Tamsulosin HCl (Flomax 0.4 mg) 0.4 MG BID PO Docusate Sodium (COLACE) 100 MG BID PO Lactulose (LACTULOSE) 20 GM BID PRN PRN PO Doxycycline Monohydrate (DOXYCYCLINE MONOHYDRATE ) 100 MG Q12HR PO Clopidogrel Bisulfate (Plavix) 75 MG BEDTIME PO (r) Rivaroxaban (XARELTO 20MG) 20 MG DAILY PO (r) Amlodipine Besylate (NORVASC) 5 MG DAILY PO (r) Aspirin (ASPIRIN) 81 MG DAILY PO (r) Metoprolol Tartrate (LOPRESSOR) 25 MG BEDTIME PO Cyanocobalamin (Vitamin B-12 500 mcg tab) 500 MC G DAILY PO Folic Acid (FOLIC ACID) 1 MG DAILY PO Multivitamins (TAB-A-FINESSE) 1 TAB DAILY PO Sterile Water (WATER FOR INJECTION) 1.2 ML ASDIR PRN IV Thiamine HCl (THIAMINE HCL) 100 MG DAILY PO Ziprasidone (GEODON 20MG VIAL) 10 MG Q6H PRN NM N IM Physical Exam General appearance: frail, alert, awake Neck: no JVD Cardiovascular: CV assessment: irregularly irregular Respiratory: clear to auscultation, no distress Abdomen: soft, non-tender, normal bowel sounds, no distention Genitourinary: no flank pain, no medina Lower extremity: LE assessment: no edema Musculoskeletal: normal inspection Neuro/HAND COLLATOR: alert, normal speech Skin: poor skin turgor Ulcer: Type/cause: arterial Duration: chronic Location: foot Laterality: left Stage: 3 Psychiatry: normal mood Results Findings/Data: Laboratory Tests 07/17 1314 Chemistry Sodium (134 - 147 mEq/L) 140 Potassium (3.4 - 5.0 mEq/L) 4.4 Chloride (100 - 108 mEq/L) 110 H Carbon Dioxide (21 - 33 mEq/l) 27 Anion Gap (0 - 20) 7 BUN (7 - 18 mg/dL) 15 Creatinine (0.6 - 1.3 mg/dL) 0.9 Glomerular Filtr Rate (70 - 80) 80.2 H Glucose (70 - 110 mg/dL) 106 Calcium (8.0 - 10.5 mg/dL) 8.7 Laboratory Tests 07/17 1314 Hematology WBC (4.5 - 11.0 x10 3/uL) 8.1 RBC (4.00 - 5.60 x10 6/uL) 3.30 L Hgb (12.5 - 16.9 g/dL) 10.0 L Hct (37.5 - 50.7 %) 32.4 L MCV (81.0 - 99.0 fL) 98.2 MCH (27.0 - 33.0 pg) 30.3 MCHC (33.0 - 37.0 g/dL) 30.9 L RDW (11.5 - 14.5 %) 16.0 H Plt Count (150 - 400 x10 3/uL) 374 MPV (7.0 - 9.0 fL) 9.4 H Neut % (Auto) (56.0 - 77.0 %) 62.8 Lymph % (Auto) (14.0 - 32.0 %) 27.5 Person % (Auto) (4.8 - 9.0 %) 7.0 Eos % (Auto) (0.3 - 3.7 %) 1.5 Baso % (Auto) (0.0 - 2.0 %) 0.7 Neut # (Auto) (2.0 - 7.6 x10 3/uL) 5.10 Lymph # (Auto) (1.0 - 3.8 x10 3/uL) 2.23 Person # (Auto) (0.1 - 0.8 x10 3/uL) 0.57 Eos # (Auto) (0.0 - 0.2 x10 3/uL) 0.12 Baso # (Auto) (0.0 - 0.2 x10 3/uL) 0.06 Abs Immat Gran (auto) (0.00 - 0.03 x10 3/uL) 0 .04 H Add Manual Diff NO Immature Gran % (0.0 - 2.0 %) 0.5 Nucleated RBC % (0 - 0 %) 0.0 Nucleated RBCs # (Man) (0.0 - 0.1 x10 3/uL) 0.0 0 Diagnosis, Assessment Plan Plan discussed with: patient, daughter, nurse Free Text DxA P Notes Free Text DxA P Notes: 85 YO male with PMHx of HTN, PAF on chronic anticoagulation, and PAD with prior vascular interventions who is admitted with leg pain and swelling. Today hemoglobin dropped 7.3 from 8.5. Stool is positive for occult blood. GI has been consulted and planning for EGD. Cardiology is co nsulted to evaluate if anticogulation can be discontinued given anemi a nd possible GI bleed. The patient otherwise is awake a nd alert. He denies any palpitation, chest pain, or shortness of breath. He has been refusing teleme try monitor. 1. Chronic atrial fibrillation - rate controlled refusing telemetry hold Xarelto d/t anemia and possible GIB continue BB as long as BP stable [id number] score 5 HAS-BLED score 4 would benefit from LAP occlusion. Discussed with patient and daughter Judie ) and they are i nterested. Will discuss with GI and once patient is clear to resume antiplatelet will schedule patie nt for Amulet this coming Sunday 2. PAD with prior vascular interventions/foot ul cers Vascular surgery and podiatry onboard resume plavix and ASA once cleared by GI 3. Hypertension BP stable so far continue metoprolol continue to hold amlodipine 4. 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 Colonoscopy showed nonbleeding external and internal hemorrhoids and diverticulosis in the sigmoid colon and descending colon at 1505 RPT #:[id number] END OF REPORT 2021-07-17 09:49:00-00:00 [facility]L [facility] Cardiology Progress Note REPORT#:[id number] REPORT STATUS: Signed DATE:07/17/21 TIME: 948 PATIENT: KAYLYNN MISTRY UNIT #: [id number] ROOM/BED: [place] [address] : 35 AGE: 85 SEX: M ATTEND: Vinnie Garcia MD ADM AUTHOR: Katy Jack ACNP * ALL edits or amendments must be made on the el [employer]/computer document * Subjective Patient reports: No: complaints. Objective General VS/I O: 24 hour I O ending at 0700: 07/17 0700 07/16 1900 Intake Total Output Total Balance Number 1 Incontinent Voids Vital Signs: Date Time Temp Pulse Resp B/P B/P Pulse O2 O2 F low FiO2 Mean Ox Delivery Rate 07/17 0800 36.8 69 17 124/73 89.8 98 Room air 07/17 0516 36.5 60 16 134/80 97.7 97 Room air 07/17 0104 36.5 57 16 113/80 90.8 97 Room air 07/16 2032 36.9 73 16 111/70 83.8 97 Room air 07/16 1754 36.7 79 15 95/54 67.4 99 Room air 07/16 1348 36.7 77 15 91/61 70.9 100 Room air PATIENT WEIGHT: Weight (lb): 184 Weight (oz): Weight (kg): 83.461 Medications: Active Meds + DC'd Last 24 Hrs Trazodone HCl (DESYREL) 25 MG BEDTIME PRN PRN PO Nitroglycerin (NITRO-BID) 0.5 INCH DAILY TRANSDE RM Finasteride (PROSCAR) 5 MG DAILY PO Tamsulosin HCl (Flomax 0.4 mg) 0.4 MG BID PO Docusate Sodium (COLACE) 100 MG BID PO Lactulose (LACTULOSE) 20 GM BID PRN PRN PO Doxycycline Monohydrate (DOXYCYCLINE MONOHYDRATE ) 100 MG Q12HR PO Clopidogrel Bisulfate (Plavix) 75 MG BEDTIME PO (r) Rivaroxaban (XARELTO 20MG) 20 MG DAILY PO (r) Amlodipine Besylate (NORVASC) 5 MG DAILY PO (r) Aspirin (ASPIRIN) 81 MG DAILY PO (r) Metoprolol Tartrate (LOPRESSOR) 25 MG BEDTIME PO Cyanocobalamin (Vitamin B-12 500 mcg tab) 500 MC G DAILY PO Folic Acid (FOLIC ACID) 1 MG DAILY PO Multivitamins (TAB-A-FINESSE) 1 TAB DAILY PO Sterile Water (WATER FOR INJECTION) 1.2 ML ASDIR PRN IV Thiamine HCl (THIAMINE HCL) 100 MG DAILY PO Ziprasidone (GEODON 20MG VIAL) 10 MG Q6H PRN PRN IM Physical Exam General appearance: frail, alert, awake Neck: no JVD Cardiovascular: CV assessment: irregularly irregular Respiratory: clear to auscultation, no distress Abdomen: soft, non-tender, normal bowel sounds, no distention Genitourinary: no flank pain, no medina Lower extremity: LE assessment: no edema Musculoskeletal: normal inspection Neuro/HAND COLLATOR: alert, normal speech Skin: poor skin turgor Ulcer: Type/cause: arterial Duration: chronic Location: foot Laterality: left Stage: 3 Psychiatry: normal mood Results Findings/Data: Laboratory Tests 07/17 1314 Chemistry Sodium (134 - 147 mEq/L) 140 Potassium (3.4 - 5.0 mEq/L) 4.4 Chloride (100 - 108 mEq/L) 110 H Carbon Dioxide (21 - 33 mEq/l) 27 Anion Gap (0 - 20) 7 BUN (7 - 18 mg/dL) 15 Creatinine (0.6 - 1.3 mg/dL) 0.9 Glomerular Filtr Rate (70 - 80) 80.2 H Glucose (70 - 110 mg/dL) 106 Calcium (8.0 - 10.5 mg/dL) 8.7 Laboratory Tests 07/17 1314 Hematology WBC (4.5 - 11.0 x10 3/uL) 8.1 RBC (4.00 - 5.60 x10 6/uL) 3.30 L Hgb (12.5 - 16.9 g/dL) 10.0 L Hct (37.5 - 50.7 %) 32.4 L MCV (81.0 - 99.0 fL) 98.2 MCH (27.0 - 33.0 pg) 30.3 MCHC (33.0 - 37.0 g/dL) 30.9 L RDW (11.5 - 14.5 %) 16.0 H Plt Count (150 - 400 x10 3/uL) 374 MPV (7.0 - 9.0 fL) 9.4 H Neut % (Auto) (56.0 - 77.0 %) 62.8 Lymph % (Auto) (14.0 - 32.0 %) 27.5 Person % (Auto) (4.8 - 9.0 %) 7.0 Eos % (Auto) (0.3 - 3.7 %) 1.5 Baso % (Auto) (0.0 - 2.0 %) 0.7 Neut # (Auto) (2.0 - 7.6 x10 3/uL) 5.10 Lymph # (Auto) (1.0 - 3.8 x10 3/uL) 2.23 Person # (Auto) (0.1 - 0.8 x10 3/uL) 0.57 Eos # (Auto) (0.0 - 0.2 x10 3/uL) 0.12 Baso # (Auto) (0.0 - 0.2 x10 3/uL) 0.06 Abs Immat Gran (auto) (0.00 - 0.03 x10 3/uL) 0. 04 H Add Manual Diff NO Immature Gran % (0.0 - 2.0 %) 0.5 Nucleated RBC % (0 - 0 %) 0.0 Nucleated RBCs # (Man) (0.0 - 0.1 x10 3/uL) 0.0 0 Diagnosis, Assessment Plan Plan discussed with: patient, daughter, nurse Free Text DxA P Notes Free Text DxA P Notes: 85 YO male with PMHx of HTN, PAF on chronic anticoagulation, and PAD with prior vascular interventions who is admitted with leg pain and swelling. Today hemoglobin dropped 7.3 from 8.5. Stool is positive for occult blood. GI has been consulted and planning for EGD. Cardiology is co nsulted to evaluate if anticogulation can be discontinued given anemi a nd possible GI bleed. The patient otherwise is awake a nd alert. He denies any palpitation, chest pain, or shortness of breath. He has been refusing teleme try monitor. 1. Chronic atrial fibrillation - rate controlled refusing telemetry hold Xarelto d/t anemia and possible GIB continue BB as long as BP stable [id number] score 5 HAS-BLED score 4 would benefit from LAP occlusion. Discussed with patient and daughter Judie ) and they are i nterested. Will discuss with GI and once patient is clear to resume antiplatelet will schedule patie nt for Amulet this coming Sunday 2. PAD with prior vascular interventions/foot ul cers Vascular surgery and podiatry onboard resume plavix and ASA once cleared by GI 3. Hypertension BP stable so far continue metoprolol continue to hold amlodipine 4. 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 Colonoscopy showed nonbleeding external and internal hemorrhoids and diverticulosis in the sigmoid colon and descending colon at 1505 Electronically Signed by Antonina Day MD on at 0801 RPT #:[id number] END OF REPORT 2021-07-16 17:49:00-00:00 [facility]L [facility] Hospitalist Progress Note REPORT#:[id number] REPORT STATUS: Signed DATE:07/16/21 TIME: 1749 PATIENT: KAYLYNN MISTRY UNIT #: [id number] ROOM/BED: [place] [address] : 35 AGE: 85 SEX: M ATTEND: Vinnie Garcia MD ADM AUTHOR: Adry Ortiz MD * ALL edits or amendments must be made on the [employer]/computer document * Subjective Chief complaint: Pt seen and exam'd. Events noted. Following up l eg pain, confusion. Less confusion/ agitation today. Review of Systems Constitutional: Reports: generalized weakness. All systems rev neg: except as marked Objective General VS/I O: Vital Signs: Date Time Temp Pulse Resp B/P B/P Pulse O2 O2 F low FiO2 Mean Ox Delivery Rate 07/16 1348 98.1 77 15 91/61 70.9 100 Room air 07/16 0902 97.9 78 15 106/66 79.7 98 Room air 07/16 0402 98.2 62 16 125/70 88.5 97 Room air 07/16 0221 64 18 102/60 74.2 98 07/15 2324 97.7 79 16 91/64 73.3 95 Room air 07/15 2138 98.4 71 16 104/67 79.1 96 Room air 07/15 2112 98.1 75 18 98/64 75.0 98 07/15 2022 98.4 75 16 112/72 85.1 98 07/15 1914 97.9 79 14 103/66 78.0 99 07/15 1825 98.4 70 111/71 84.5 100 07/15 1806 98.1 75 14 109/66 80.3 100 24 hour I O ending at 0700: 16 0700 04/15 1900 Intake Total 350 115.00 Output Total Balance 350 115.00 Intake, IV 115.00 Intake, 350 Packed Cells PATIENT WEIGHT: Weight (lb): 184 Weight (oz): Weight (kg): 83.461 Medications: Active Meds + DC'd Last 24 Hrs Trazodone HCl (DESYREL) 25 MG BEDTIME PRN PRN PO Nitroglycerin (NITRO-BID) 0.5 INCH DAILY TRANSDE RM Finasteride (PROSCAR) 5 MG DAILY PO Tamsulosin HCl (Flomax 0.4 mg) 0.4 MG BID PO Docusate Sodium (COLACE) 100 MG BID PO Lactulose (LACTULOSE) 20 GM BID PRN PRN PO Doxycycline Monohydrate (DOXYCYCLINE MONOHYDRATE ) 100 MG Q12HR PO Clopidogrel Bisulfate (Plavix) 75 MG BEDTIME PO (r) Rivaroxaban (XARELTO 20MG) 20 MG DAILY PO (r) Amlodipine Besylate (NORVASC) 5 MG DAILY PO (r) Aspirin (ASPIRIN) 81 MG DAILY PO (r) Metoprolol Tartrate (LOPRESSOR) 25 MG BEDTIME PO Cyanocobalamin (Vitamin B-12 500 mcg tab) 500 MC G DAILY PO Folic Acid (FOLIC ACID) 1 MG DAILY PO Multivitamins (TAB-A-FINESSE) 1 TAB DAILY PO Sterile Water (WATER FOR INJECTION) 1.2 ML ASDIR PRN IV Thiamine HCl (THIAMINE HCL) 100 MG DAILY PO Ziprasidone (GEODON 20MG VIAL) 10 MG Q6H PRN PRN IM Nutrition assessment: The data set between the solid lines has been im ported from the dietitian's assessment. Any exceptions have been noted under Provider comments. BMI Calculated: 27.4 Nutrition related diagnosis: Nutrition diagnosis details: Nutrition problem: Nutrition etiology: Nutrition signs and symptoms: Nutrition prescription: Dietitian name: Assessment completed: Provider comments on imported dietitian assessme nt: Physical Exam General appearance: alert, awake, oriented Head/Eyes: atraumatic, EOMI, normocephalic, PERR L ENT: moist mucosal membranes Neck: full range of motion, non-tender Cardiovascular: normal heart sounds, regular rat e rhythm Respiratory: aerating well, clear to auscultatio n Abdomen: non-tender, normal bowel sounds, soft, no distention Genitourinary: no bladder distention Extremities: no clubbing, no cyanosis, no edema Skin: no rash Ulcer: Type/cause: arterial Duration: chronic Location: foot Laterality: left Stage: 3 Results Findings/Data: Laboratory Tests 07/16 07/15 0715 1815 Chemistry Sodium (134 - 147 mEq/L) 141 Potassium (3.4 - 5.0 mEq/L) 4.2 Chloride (100 - 108 mEq/L) 112 H Carbon Dioxide (21 - 33 mEq/l) 25 Anion Gap (0 - 20) 8 BUN (7 - 18 mg/dL) 15 Creatinine (0.6 - 1.3 mg/dL) 0.8 Glomerular Filtr Rate (70 - 80) 91.9 H Glucose (70 - 110 mg/dL) 95 Calcium (8.0 - 10.5 mg/dL) 8.2 Iron (35 - 150 mcg/dL) 50 TIBC (260 - 445 mcg/dL) 231 L % Saturation (14 - 34 %) 21.6 Unsat Iron Binding (mcg/dL) 181 Ferritin (23.9 - 336.2 ng/mL) 283.3 Laboratory Tests 07/16 0715 Hematology WBC (4.5 - 11.0 x10 3/uL) 6.7 RBC (4.00 - 5.60 x10 6/uL) 2.68 L Hgb (12.5 - 16.9 g/dL) 8.2 L Hct (37.5 - 50.7 %) 26.2 L MCV (81.0 - 99.0 fL) 97.8 MCH (27.0 - 33.0 pg) 30.6 MCHC (33.0 - 37.0 g/dL) 31.3 L RDW (11.5 - 14.5 %) 15.3 H Plt Count (150 - 400 x10 3/uL) 295 MPV (7.0 - 9.0 fL) 9.6 H Neut % (Auto) (56.0 - 77.0 %) 55.0 L Lymph % (Auto) (14.0 - 32.0 %) 31.4 Person % (Auto) (4.8 - 9.0 %) 10.1 H Eos % (Auto) (0.3 - 3.7 %) 2.0 Baso % (Auto) (0.0 - 2.0 %) 0.9 Neut # (Auto) (2.0 - 7.6 x10 3/uL) 3.66 Lymph # (Auto) (1.0 - 3.8 x10 3/uL) 2.09 Person # (Auto) (0.1 - 0.8 x10 3/uL) 0.67 Eos # (Auto) (0.0 - 0.2 x10 3/uL) 0.13 Baso # (Auto) (0.0 - 0.2 x10 3/uL) 0.06 Abs Immat Gran (auto) (0.00 - 0.03 x10 3/uL) 0. 04 H Add Manual Diff NO Immature Gran % (0.0 - 2.0 %) 0.6 Nucleated RBC % (0 - 0 %) 0.0 Nucleated RBCs # (Man) (0.0 - 0.1 x10 3/uL) 0.0 0 Diagnosis, Assessment Plan Free Text DxA P Notes Free text DxA P notes: 1. Left lower extremity swelling. 2. Peripheral vascular disease. 3. Atrial fibrillation. 4. Foot wounds. 5. Questionable history of syncope. 6. Alcohol use. 7. Benign prostatic hypertrophy. 8. Hypertension. 9. Likely dementia. Improving mentation, continue to monitor. Pain/ discomfort related to reperfusion. Empiric abx. Swelling improving. Continue med tx. Monitor BP/ HR. Foot wound care. Appreciate Psych, Vasc, Pod input. Start PT/OT. CM to assist with dc planning. Urinary symptoms possible related to BPH; Add Av odart and increase Flomax. d/w dtr, all questions answered. 07/13/2021 Patient with left leg swelli ng, peripheral vascular disease, A. fib, foot wounds , BPH, hypertension Mental status much better today He states he feels depressed and misses his who 12 years ago Psych has been consulted PT/OT on board Vitals reviewed acceptable Labs reviewed acceptable Encouraged PT/OT PMNR consulted as patient st ates that he lives at home and wants to return back home when better 07/14/21 doing ok vitals reviewed-some hypotension today stop losartan and amlodipine Labs reviewed-Hb dropped stool OB requested and reported positive GI consulted hold xarelto and asa and plavix cardio consulted for further recommendations patient has 2 daughters, both son in law at bedside today and patient in their presence okaying rehab [facility] consulted PMNR help appreciated CM to help with rehab arrangement, preferable pr ivate bed/not a shared room repeat labs in am 07/15/21 doing ok vitals reviewed-BP low labs reviewed-Hb lower than yesterday holding xarelto and ASA and plavix cardio has evaluated the patient GI help appreciated EGD/Colonoscopy in plan Iron studies requested will give one unit PRBC today as anemic and hypo tensive PMNR following, will dc to rehab once medically cleared 07/16/2021 Patient is doing okay Vitals reviewed blood pressure still low Labs reviewed hemoglobin better after transfusio n Still aspirin Plavix and Xarelto is on hold GI help appreciated S/p EGD and colonoscopy Found to have gastritis esophagitis and some div erticulosis but no bleeding Will wait for GI clearance before starting antic oagulation and antiplatelets Waiting on cardio recommendations which ones to start Discharge to inpatient rehab once medically ceci lopez Electronically Signed by Adry Ortiz MD on 07/16 at 1753 RPT #:[id number] END OF REPORT 2021-07-16 09:36:00-00:00 [facility] ([facility]) Cardiology Progress Note REPORT#:[id number] REPORT STATUS: Signed DATE:07/16/21 TIME: 935 PATIENT: KAYLYNN MISTRY UNIT #: [id number] [place] [facility] [id number] AGE: 85 SEX: M ATTEND: Vinnie Garcia MD ADM AUTHOR: Katy Jack ACNP * ALL edits or amendments must be made on the [employer]/computer document * Subjective Patient reports: No: complaints. Objective General VS/I O: 24 hour I O ending at 0700: 07/16 0700 07/15 1900 Intake Total 350 115.00 Output Total Balance 350 115.00 Intake, IV 115.00 Intake, 350 Packed Cells Vital Signs: Date Time Temp Pulse Resp B/P B/P Pulse O2 O2 F low FiO2 Mean Ox Delivery Rate 07/16 0902 36.6 78 15 106/66 79.7 98 Room air 07/16 0402 36.8 62 16 125/70 88.5 97 Room air 07/16 0221 64 18 102/60 74.2 98 07/15 2324 36.5 79 16 91/64 73.3 95 Room air 07/15 2139 36.9 71 16 104/67 79.1 96 Room air 07/15 2113 36.7 75 18 98/64 75.0 98 07/15 2023 36.9 75 16 112/72 85.1 98 07/15 1914 36.6 79 14 103/66 78.0 99 07/15 1825 36.9 70 111/71 84.5 100 07/15 1806 36.7 75 14 109/66 80.3 100 07/15 1617 36.7 77 18 118/76 90.2 95 07/15 1530 86 21 115/71 100 07/15 1525 36.6 75 20 106/66 74 Room air 0 07/15 1520 78 22 105/61 100 07/15 1515 75 22 94/58 100 07/15 1510 Nasal 2 cannula 07/15 1510 36.6 73 16 92/62 100 Nasal 2 cannula 07/15 1454 82 20 102/69 100 Room air 07/15 1138 36.7 64 18 107/68 81.3 95 PATIENT WEIGHT: Weight (lb): 184 Weight (oz): Weight (kg): 83.461 Medications: Active Meds + DC'd Last 24 Hrs Phenylephrine HCl (WIL-SYNEPHRINE 1000MCG/NS 10M L INJ) 0 .STK-MED ONE I- DARLENE (DC) Fentanyl Citrate (SUBLIMAZE) 0 .STK-MED ONE .ROU TE (DC) Lidocaine HCl (XYLOCAINE) 0 .STK-MED ONE .ROUTE (DC) Propofol (DIPRIVAN 200MG/20ML INJECTION) 20 ML . STK-MED ONE IV (DC) Fentanyl Citrate (SUBLIMAZE) 100 MCG PACU Q10MIN PRN PRN IV (DC) Fentanyl Citrate (SUBLIMAZE) 50 MCG PACU Q10MIN PRN PRN IV (DC) Hydralazine HCl (APRESOLINE) 2 MG PACU Q10MIN NM N PRN IV (DC) Insulin Human Lispro (HUMALOG) 0 PACU ONCE PRN S UBQ (DC) Labetalol HCl (LABETALOL HCL) 5 MG PACU Q10MIN P RN PRN IV (DC) Ondansetron HCl (ZOFRAN) 4 MG PACU ONCE PRN IV ( DC) Sodium Chloride (SODIUM CHLORIDE 0.9%) 1,000 ML .Q24H IV (DC) Trazodone HCl (DESYREL) 25 MG BEDTIME PRN PRN PO Nitroglycerin (NITRO-BID) 0.5 INCH DAILY TRANSDE RM Finasteride (PROSCAR) 5 MG DAILY PO Tamsulosin HCl (Flomax 0.4 mg) 0.4 MG BID PO Docusate Sodium (COLACE) 100 MG BID PO Lactulose (LACTULOSE) 20 GM BID PRN PRN PO Doxycycline Monohydrate (DOXYCYCLINE MONOHYDRATE ) 100 MG Q12HR PO Clopidogrel Bisulfate (Plavix) 75 MG BEDTIME PO (DA) Rivaroxaban (XARELTO 20MG) 20 MG DAILY PO (DA) Amlodipine Besylate (NORVASC) 5 MG DAILY PO (DA) Aspirin (ASPIRIN) 81 MG DAILY PO (DA) Metoprolol Tartrate (LOPRESSOR) 25 MG BEDTIME PO Cyanocobalamin (Vitamin B-12 500 mcg tab) 500 MC G DAILY PO Folic Acid (FOLIC ACID) 1 MG DAILY PO Multivitamins (TAB-A-FINESSE) 1 TAB DAILY PO Sterile Water (WATER FOR INJECTION) 1.2 ML ASDIR PRN IV Thiamine HCl (THIAMINE HCL) 100 MG DAILY PO Ziprasidone (GEODON 20MG VIAL) 10 MG Q6H PRN PRN IM Physical Exam General appearance: chronically ill appearing, a wake, no acute distress Neck: no JVD Cardiovascular: CV assessment: irregularly irregular Respiratory: clear to auscultation, no distress Abdomen: soft, non-tender, normal bowel sounds, no distention Genitourinary: no flank pain, no medina Lower extremity: LE assessment: no edema Musculoskeletal: normal inspection Neuro/HAND COLLATOR: alert, normal speech Skin: poor skin turgor Ulcer: Type/cause: arterial Duration: chronic Location: foot Laterality: left Stage: 3 Psychiatry: normal mood Results Findings/Data: Laboratory Tests 07/165 Chemistry Sodium (134 - 147 mEq/L) 141 Potassium (3.4 - 5.0 mEq/L) 4.2 Chloride (100 - 108 mEq/L) 112 H Carbon Dioxide (21 - 33 mEq/l) 25 Anion Gap (0 - 20) 8 BUN (7 - 18 mg/dL) 15 Creatinine (0.6 - 1.3 mg/dL) 0.8 Glomerular Filtr Rate (70 - 80) 91.9 H Glucose (70 - 110 mg/dL) 95 Calcium (8.0 - 10.5 mg/dL) 8.2 Iron (35 - 150 mcg/dL) 50 TIBC (260 - 445 mcg/dL) 231 L % Saturation (14 - 34 %) 21.6 Unsat Iron Binding (mcg/dL) 181 Ferritin (23.9 - 336.2 ng/mL) 283.3 Laboratory Tests 07/16 714 Hematology WBC (4.5 - 11.0 x10 3/uL) 6.7 RBC (4.00 - 5.60 x10 6/uL) 2.68 L Hgb (12.5 - 16.9 g/dL) 8.2 L Hct (37.5 - 50.7 %) 26.2 L MCV (81.0 - 99.0 fL) 97.8 MCH (27.0 - 33.0 pg) 30.6 MCHC (33.0 - 37.0 g/dL) 31.3 L RDW (11.5 - 14.5 %) 15.3 H Plt Count (150 - 400 x10 3/uL) 295 MPV (7.0 - 9.0 fL) 9.6 H Neut % (Auto) (56.0 - 77.0 %) 55.0 L Lymph % (Auto) (14.0 - 32.0 %) 31.4 Person % (Auto) (4.8 - 9.0 %) 10.1 H Eos % (Auto) (0.3 - 3.7 %) 2.0 Baso % (Auto) (0.0 - 2.0 %) 0.9 Neut # (Auto) (2.0 - 7.6 x10 3/uL) 3.66 Lymph # (Auto) (1.0 - 3.8 x10 3/uL) 2.09 Person # (Auto) (0.1 - 0.8 x10 3/uL) 0.67 Eos # (Auto) (0.0 - 0.2 x10 3/uL) 0.13 Baso # (Auto) (0.0 - 0.2 x10 3/uL) 0.06 Abs Immat Gran (auto) (0.00 - 0.03 x10 3/uL) 0. 04 H Add Manual Diff NO Immature Gran % (0.0 - 2.0 %) 0.6 Nucleated RBC % (0 - 0 %) 0.0 Nucleated RBCs # (Man) (0.0 - 0.1 x10 3/uL) 0.0 0 Diagnosis, Assessment Plan Free Text DxA P Notes Free Text DxA P Notes: 85 YO male with PMHx of HTN, PAF on chronic anticoagulation, and PAD with prior vascular interventions who is admitted with leg pain and swelling. Today hemoglobin dropped 7.3 from 8.5. Stool is positive for occult blood. GI has been consulted and planning for EGD. Cardiology is co nsulted to evaluate if anticogulation can be discontinued given anemi a nd possible GI bleed. The patient otherwise is awake a nd alert. He denies any palpitation, chest pain, or shortness of breath. He has been refusing teleme try monitor. 1. Chronic atrial fibrillation - rate controlled refusing telemetry hold Xarelto d/t anemia and possible GIB continue BB as long as BP stable [id number] score 5 HAS-BLED score 4 would benefit from LAP occlu jorge, amulet or watchman. will discuss with patient' s daughter Judie 2. PAD with prior vascular interventions/foot ul cers Vascular surgery and podiatry onboard DAPT on hold 3. Hypertension BP on the hypotenside BP meds held - resume when approriate 4. 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 Colonoscopy showed nonbleeding external and internal hemorrhoids and diverticulosis in the sigmoid colon and descending colon at 1319 RPT #:[id number] END OF REPORT 2021-07-16 09:36:00-00:00 [facility] ([facility]) Cardiology Progress Note REPORT#:[id number] REPORT STATUS: Signed DATE:07/16/21 TIME: 935 PATIENT: KAYLYNN MISTRY UNIT #: [id number] ROOM/BED: [place] [address] : 35 AGE: 85 SEX: M ATTEND: Vinnie Garcia MD ADM AUTHOR: Katy Jack CNP * ALL edits or amendments must be made on the [employer]/computer document * Subjective Patient reports: No: complaints. Objective General VS/I O: 24 hour I O ending at 0700: 07/16 0700 07/15 1900 Intake Total 350 115.00 Output Total Balance 350 115.00 Intake, IV 115.00 Intake, 350 Packed Cells Vital Signs: Date Time Temp Pulse Resp B/P B/P Pulse O2 O2 F low FiO2 Mean Ox Delivery Rate 07/16 0902 36.6 78 15 106/66 79.7 98 Room air 07/16 0402 36.8 62 16 125/70 88.5 97 Room air 07/16 0221 64 18 102/60 74.2 98 07/154 36.5 79 16 91/64 73.3 95 Room air 07/15 2138 36.9 71 16 104/67 79.1 96 Room air 07/153 36.7 75 18 98/64 75.0 98 07/15 2022 36.9 75 16 112/72 85.1 98 07/15 1914 36.6 79 14 103/66 78.0 99 07/15 1825 36.9 70 111/71 84.5 100 07/15 1806 36.7 75 14 109/66 80.3 100 07/15 1617 36.7 77 18 118/76 90.2 95 07/15 1530 86 21 115/71 100 07/15 1525 36.6 75 20 106/66 74 Room air 0 07/15 1520 78 22 105/61 100 07/15 1515 75 22 94/58 100 07/15 1510 Nasal 2 cannula 07/15 1510 36.6 73 16 92/62 100 Nasal 2 cannula 07/15 1454 82 20 102/69 100 Room air 07/15 1138 36.7 64 18 107/68 81.3 95 PATIENT WEIGHT: Weight (lb): 184 Weight (oz): Weight (kg): 83.461 Medications: Active Meds + DC'd Last 24 Hrs Phenylephrine HCl (WIL-SYNEPHRINE 1000MCG/NS 10M L INJ) 0 .STK-MED ONE I- DARLENE (DC) Fentanyl Citrate (SUBLIMAZE) 0 .STK-MED ONE .ROU TE (DC) Lidocaine HCl (XYLOCAINE) 0 .STK-MED ONE .ROUTE (DC) Propofol (DIPRIVAN 200MG/20ML INJECTION) 20 ML . STK-MED ONE IV (DC) Fentanyl Citrate (SUBLIMAZE) 100 MCG PACU Q10MIN PRN PRN IV (DC) Fentanyl Citrate (SUBLIMAZE) 50 MCG PACU Q10MIN PRN PRN IV (DC) Hydralazine HCl (APRESOLINE) 2 MG PACU Q10MIN NM N PRN IV (DC) Insulin Human Lispro (HUMALOG) 0 PACU ONCE PRN S UBQ (DC) Labetalol HCl (LABETALOL HCL) 5 MG PACU Q10MIN P RN PRN IV (DC) Ondansetron HCl (ZOFRAN) 4 MG PACU ONCE PRN IV ( DC) Sodium Chloride (SODIUM CHLORIDE 0.9%) 1,000 ML .Q24H IV (DC) Trazodone HCl (DESYREL) 25 MG BEDTIME PRN PRN PO Nitroglycerin (NITRO-BID) 0.5 INCH DAILY TRANSDE RM Finasteride (PROSCAR) 5 MG DAILY PO Tamsulosin HCl (Flomax 0.4 mg) 0.4 MG BID PO Docusate Sodium (COLACE) 100 MG BID PO Lactulose (LACTULOSE) 20 GM BID PRN PRN PO Doxycycline Monohydrate (DOXYCYCLINE MONOHYDRATE ) 100 MG Q12HR PO Clopidogrel Bisulfate (Plavix) 75 MG BEDTIME PO (DA) Rivaroxaban (XARELTO 20MG) 20 MG DAILY PO (DA) Amlodipine Besylate (NORVASC) 5 MG DAILY PO (DA) Aspirin (ASPIRIN) 81 MG DAILY PO (DA) Metoprolol Tartrate (LOPRESSOR) 25 MG BEDTIME PO Cyanocobalamin (Vitamin B-12 500 mcg tab) 500 MC G DAILY PO Folic Acid (FOLIC ACID) 1 MG DAILY PO Multivitamins (TAB-A-FINESSE) 1 TAB DAILY PO Sterile Water (WATER FOR INJECTION) 1.2 ML ASDIR PRN IV Thiamine HCl (THIAMINE HCL) 100 MG DAILY PO Ziprasidone (GEODON 20MG VIAL) 10 MG Q6H PRN PRN IM Physical Exam General appearance: chronically ill appearing, a wake, no acute distress Neck: no JVD Cardiovascular: CV assessment: irregularly irregular Respiratory: clear to auscultation, no distress Abdomen: soft, non-tender, normal bowel sounds, no distention Genitourinary: no flank pain, no medina Lower extremity: LE assessment: no edema Musculoskeletal: normal inspection Neuro/HAND COLLATOR: alert, normal speech Skin: poor skin turgor Ulcer: Type/cause: arterial Duration: chronic Location: foot Laterality: left Stage: 3 Psychiatry: normal mood Results Findings/Data: Laboratory Tests 07/16 Chemistry Sodium (134 - 147 mEq/L) 141 Potassium (3.4 - 5.0 mEq/L) 4.2 Chloride (100 - 108 mEq/L) 112 H Carbon Dioxide (21 - 33 mEq/l) 25 Anion Gap (0 - 20) 8 BUN (7 - 18 mg/dL) 15 Creatinine (0.6 - 1.3 mg/dL) 0.8 Glomerular Filtr Rate (70 - 80) 91.9 H Glucose (70 - 110 mg/dL) 95 Calcium (8.0 - 10.5 mg/dL) 8.2 Iron (35 - 150 mcg/dL) 50 TIBC (260 - 445 mcg/dL) 231 L % Saturation (14 - 34 %) 21.6 Unsat Iron Binding (mcg/dL) 181 Ferritin (23.9 - 336.2 ng/mL) 283.3 Laboratory Tests 07/16 714 Hematology WBC (4.5 - 11.0 x10 3/uL) 6.7 RBC (4.00 - 5.60 x10 6/uL) 2.68 L Hgb (12.5 - 16.9 g/dL) 8.2 L Hct (37.5 - 50.7 %) 26.2 L MCV (81.0 - 99.0 fL) 97.8 MCH (27.0 - 33.0 pg) 30.6 MCHC (33.0 - 37.0 g/dL) 31.3 L RDW (11.5 - 14.5 %) 15.3 H Plt Count (150 - 400 x10 3/uL) 295 MPV (7.0 - 9.0 fL) 9.6 H Neut % (Auto) (56.0 - 77.0 %) 55.0 L Lymph % (Auto) (14.0 - 32.0 %) 31.4 Person % (Auto) (4.8 - 9.0 %) 10.1 H Eos % (Auto) (0.3 - 3.7 %) 2.0 Baso % (Auto) (0.0 - 2.0 %) 0.9 Neut # (Auto) (2.0 - 7.6 x10 3/uL) 3.66 Lymph # (Auto) (1.0 - 3.8 x10 3/uL) 2.09 Person # (Auto) (0.1 - 0.8 x10 3/uL) 0.67 Eos # (Auto) (0.0 - 0.2 x10 3/uL) 0.13 Baso # (Auto) (0.0 - 0.2 x10 3/uL) 0.06 Abs Immat Gran (auto) (0.00 - 0.03 x10 3/uL) 0. 04 H Add Manual Diff NO Immature Gran % (0.0 - 2.0 %) 0.6 Nucleated RBC % (0 - 0 %) 0.0 Nucleated RBCs # (Man) (0.0 - 0.1 x10 3/uL) 0.0 0 Diagnosis, Assessment Plan Free Text DxA P Notes Free Text DxA P Notes: 85 YO male with PMHx of HTN, PAF on chronic anticoagulation, and PAD with prior vascular interventions who is admitted with leg pain and swelling. Today hemoglobin dropped 7.3 from 8.5. Stool is positive for occult blood. GI has been consulted and planning for EGD. Cardiology is co nsulted to evaluate if anticogulation can be discontinued given anemi a nd possible GI bleed. The patient otherwise is awake a nd alert. He denies any palpitation, chest pain, or shortness of breath. He has been refusing teleme try monitor. 1. Chronic atrial fibrillation - rate controlled refusing telemetry hold Xarelto d/t anemia and possible GIB continue BB as long as BP stable [id number] score 5 HAS-BLED score 4 would benefit from LAP occlu jorge, amulet or watchman. will discuss with patient' s daughter Judie 2. PAD with prior vascular interventions/foot ul cers Vascular surgery and podiatry onboard [facility] on hold 3. Hypertension BP on the hypotenside BP meds held - resume when approriate 4. 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 Colonoscopy showed nonbleeding external and internal hemorrhoids and diverticulosis in the sigmoid colon and descending colon at 1319 Electronically Signed by Antonina Day MD on at 0801 RPT #:[id number] END OF REPORT 2021-07-15 17:58:00-00:00 [facility] REPORT#:[id number] REPORT STATUS: Signed DATE:07/15/21 TIME: 1758 PATIENT: KAYLYNN MISTRY UNIT #: [id number] [place] [facility] [place] [place] AGE: 85 SEX: M ATTEND: Vinnie Garcia MD ADM AUTHOR: Karsten Martines DPMary * ALL edits or amendments must be made on the [employer]/computer document * General VS/I O: Last Documented: Result Date Time Pulse Ox 95 07/15 161 B/P 118/76 07/15 161 B/P Mean 90.2 07/15 1616 Temp 36.7 07/15 161 Pulse 77 07/15 1617 Resp 18 07/15 161 O2 Delivery Room air 07/15 1525 O2 Flow Rate 0 07/15 1525 24 hour I O ending at 0700: 07/15 0700 07/14 1900 Intake Total 500 200 Output Total 350 Balance 150 200 Intake, Oral 500 200 Number 4 Bowel Movements Output, Urine 350 PATIENT WEIGHT: Weight (lb): 184 Weight (oz): Weight (kg): 83.461 Subjective Chief complaint: ulceration left Objective General VS: Last Documented: Result Date Time Pulse Ox 95 07/15 1616 B/P 118/76 07/15 1616 B/P Mean 90.2 07/15 1616 Temp 36.7 07/15 1616 Pulse 77 07/15 1616 Resp 18 07/15 1616 O2 Delivery Room air 07/15 152 O2 Flow Rate 0 07/15 1525 PATIENT WEIGHT: Weight (lb): 184 Weight (oz): Weight (kg): 83.461 Medications: Active Meds + DC'd Last 24 Hrs Phenylephrine HCl (WIL-SYNEPHRINE 1000MCG/NS 10M L INJ) 0 .STK-MED ONE I- DARLENE (DC) Fentanyl Citrate (SUBLIMAZE) 0 .STK-MED ONE .ROU TE (DC) Lidocaine HCl (XYLOCAINE) 0 .STK-MED ONE .ROUTE (DC) Propofol (DIPRIVAN 200MG/20ML INJECTION) 20 ML . STK-MED ONE IV (DC) Fentanyl Citrate (SUBLIMAZE) 100 MCG PACU Q10MIN PRN PRN IV (DC) Fentanyl Citrate (SUBLIMAZE) 50 MCG PACU Q10MIN PRN PRN IV (DC) Hydralazine HCl (APRESOLINE) 2 MG PACU Q10MIN NM N PRN IV (DC) Insulin Human Lispro (HUMALOG) 0 PACU ONCE PRN S UBQ (DC) Labetalol HCl (LABETALOL HCL) 5 MG PACU Q10MIN P RN PRN IV (DC) Ondansetron HCl (ZOFRAN) 4 MG PACU ONCE PRN IV ( DC) Sodium Chloride (SODIUM CHLORIDE 0.9%) 1,000 ML .Q24H IV (DC) Trazodone HCl (DESYREL) 25 MG BEDTIME PRN PRN PO Nitroglycerin (NITRO-BID) 0.5 INCH DAILY TRANSDE RM Finasteride (PROSCAR) 5 MG DAILY PO Tamsulosin HCl (Flomax 0.4 mg) 0.4 MG BID PO Docusate Sodium (COLACE) 100 MG BID PO Lactulose (LACTULOSE) 20 GM BID PRN PRN PO Doxycycline Monohydrate (DOXYCYCLINE MONOHYDRATE ) 100 MG Q12HR PO Clopidogrel Bisulfate (Plavix) 75 MG BEDTIME PO (DA) Rivaroxaban (XARELTO 20MG) 20 MG DAILY PO (DA) Amlodipine Besylate (NORVASC) 5 MG DAILY PO (DA ) Aspirin (ASPIRIN) 81 MG DAILY PO (DA) Metoprolol Tartrate (LOPRESSOR) 25 MG BEDTIME PO Cyanocobalamin (Vitamin B-12 500 mcg tab) 500 MC G DAILY PO Folic Acid (FOLIC ACID) 1 MG DAILY PO Multivitamins (TAB-A-FINESSE) 1 TAB DAILY PO Sterile Water (WATER FOR INJECTION) 1.2 ML ASDIR PRN IV Thiamine HCl (THIAMINE HCL) 100 MG DAILY PO Ziprasidone (GEODON 20MG VIAL) 10 MG Q6H PRN PRN IM I O: 24 hour I O ending at 0700: 15 0700 07/14 1900 Intake Total 500 200 Output Total 350 Balance 150 200 Intake, Oral 500 200 Number 4 Bowel Movements Output, Urine 350 Nutrition assessment: The data set between the solid lines has been im ported from the dietitian's assessment. Any exceptions have been noted under Provider comments. BMI Calculated: 27.4 Nutrition related diagnosis: Nutrition diagnosis details: Nutrition problem: Nutrition etiology: Nutrition signs and symptoms: Nutrition prescription: Dietitian name: Assessment completed: Provider comments on imported dietitian assessme nt: Physical Exam General appearance: awake LE vascular pulse assess: 1+ R posterior tibialis, 1+ L posterior tibialis , 1+ R dorsalis pedis, 1+ L dorsalis pedis Capillary refill: Capillary refill (in seconds): < 3 seconds Right foot, < 3 seconds Left foot Reflexes: Achilles: 2+ Foot: vascular deficit Musculoskeletal: Musculoskeletal: decreased ROM Neuro/HAND COLLATOR: oriented X 3, no motor deficits Skin: ecchymosis (ecchymosis of left foot), dry Ulcer: Location: foot Type: arterial Appearance: necrotic tissue, Ulcerations to the dorsal 4th toe and plantar hallux have dry stable escha r no localized skin or soft tissue infection noted. Drainage: without odor Results Findings/Data: Laboratory Tests: 07/15 0415 Chemistry Sodium (134 - 147 mEq/L) 141 Potassium (3.4 - 5.0 mEq/L) 4.1 Chloride (100 - 108 mEq/L) 110 H Carbon Dioxide (21 - 33 mEq/l) 25 Anion Gap (0 - 20) 10 BUN (7 - 18 mg/dL) 19 H Creatinine (0.6 - 1.3 mg/dL) 0.9 Glomerular Filtr Rate (70 - 80) 80.2 H Glucose (70 - 110 mg/dL) 105 Calcium (8.0 - 10.5 mg/dL) 8.3 Coagulation INR (0.8 - 1.2) 2.2 H PTT ([place]) (25.0 - 39.5 Seconds) 32.7 PT Patient/Control Mix (9.3 - 12.9 SECONDS) 24. 3 H Hematology WBC (4.5 - 11.0 x10 3/uL) 8.4 RBC (4.00 - 5.60 x10 6/uL) 2.30 L Hgb (12.5 - 16.9 g/dL) 7.1 L Hct (37.5 - 50.7 %) 22.3 L MCV (81.0 - 99.0 fL) 97.0 MCH (27.0 - 33.0 pg) 30.9 MCHC (33.0 - 37.0 g/dL) 31.8 L RDW (11.5 - 14.5 %) 14.7 H Plt Count (150 - 400 x10 3/uL) 313 MPV (7.0 - 9.0 fL) 9.8 H Neut % (Auto) (56.0 - 77.0 %) 64.1 Lymph % (Auto) (14.0 - 32.0 %) 22.7 Person % (Auto) (4.8 - 9.0 %) 9.7 H Eos % (Auto) (0.3 - 3.7 %) 1.8 Baso % (Auto) (0.0 - 2.0 %) 1.0 Neut # (Auto) (2.0 - 7.6 x10 3/uL) 5.36 Lymph # (Auto) (1.0 - 3.8 x10 3/uL) 1.90 Person # (Auto) (0.1 - 0.8 x10 3/uL) 0.81 H Eos # (Auto) (0.0 - 0.2 x10 3/uL) 0.15 Baso # (Auto) (0.0 - 0.2 x10 3/uL) 0.08 Abs Immat Gran (auto) (0.00 - 0.03 x10 3/uL) 0. 06 H Add Manual Diff NO Immature Gran % (0.0 - 2.0 %) 0.7 Nucleated RBC % (0 - 0 %) 0.0 Nucleated RBCs # (Man) (0.0 - 0.1 x10 3/uL) 0.0 0 Results: labs reviewed Diagnosis, Assessment Plan Free Text A P: PAD b/l LE s/p recent revascularization Ulcerations toes 1 and 4 left foot with dry, sta ble eschar Localized edema b/l LE Injury left foot BETADIEN WTD DAILY LEFT FOOT WBAT VASCULAR CONSULT AND EVAL PAIN CONTROL PT/OT WILL FOLLOW Electronically Signed by Karsten Martines DPM on 06/21 at 0942 RPT #:[id number] END OF REPORT 2021-07-15 16:20:00-00:00 [facility] Progress Note REPORT#:[id number] REPORT STATUS: Signed DATE:07/15/21 TIME: 1619 PATIENT: KAYLYNN MISTRY UNIT #: [id number] ROOM/BED: 5536-1 : 35 AGE: 85 SEX: M ATTEND: Vinnie Garcia MD ADM AUTHOR: Adry Ortiz MD * ALL edits or amendments must be made on the [employer]/computer document * Subjective Chief complaint: Pt seen and exam'd. Events noted. Following up l eg pain, confusion. Less confusion/ agitation today. Review of Systems Constitutional: Reports: generalized weakness. All systems rev neg: except as marked Objective General VS/I O: Vital Signs: Date Time Temp Pulse Resp B/P B/P Pulse O2 O2 F low FiO2 Mean Ox Delivery Rate 07/15 1617 98.1 77 18 118/76 90.2 95 07/15 1530 86 21 115/71 100 07/15 1525 97.9 75 20 106/66 74 Room air 0 07/15 1520 78 22 105/61 100 07/15 1515 75 22 94/58 100 07/15 1510 Nasal 2 cannula 07/15 1510 97.8 73 16 92/62 100 Nasal 2 cannula 07/15 1454 82 20 102/69 100 Room air 07/15 1138 98.1 64 18 107/68 81.3 95 07/15 0714 98.1 85 18 93/53 66.1 97 07/15 0548 98.8 93 14 97/53 67.8 96 07/15 0102 98.2 79 14 106/66 79.1 99 07/14 2104 98.4 90 14 122/69 86.9 98 24 hour I O ending at 0700: 07/15 0700 07/14 1900 Intake Total 500 200 Output Total 350 Balance 150 200 Intake, Oral 500 200 Number 4 Bowel Movements Output, Urine 350 PATIENT WEIGHT: Weight (lb): 184 Weight (oz): Weight (kg): 83.461 Medications: Active Meds + DC'd Last 24 Hrs Phenylephrine HCl (WIL-SYNEPHRINE 1000MCG/NS 10M L INJ) 0 .STK-MED ONE I- DARLENE (DC) Fentanyl Citrate (SUBLIMAZE) 0 .STK-MED ONE .ROU TE (DC) Lidocaine HCl (XYLOCAINE) 0 .STK-MED ONE .ROUTE (DC) Propofol (DIPRIVAN 200MG/20ML INJECTION) 20 ML . STK-MED ONE IV (DC) Fentanyl Citrate (SUBLIMAZE) 100 MCG PACU Q10MIN PRN PRN IV (DC) Fentanyl Citrate (SUBLIMAZE) 50 MCG PACU Q10MIN PRN PRN IV (DC) Hydralazine HCl (APRESOLINE) 2 MG PACU Q10MIN NM N PRN IV (DC) Insulin Human Lispro (HUMALOG) 0 PACU ONCE PRN S UBQ (DC) Labetalol HCl (LABETALOL HCL) 5 MG PACU Q10MIN P RN PRN IV (DC) Ondansetron HCl (ZOFRAN) 4 MG PACU ONCE PRN IV ( DC) Sodium Chloride (SODIUM CHLORIDE 0.9%) 1,000 ML .Q24H IV (DC) Polyethylene Glycol/Electrolytes (GOLYTELY) 4,00 0 ML ONCE ONE PO (DC) Trazodone HCl (DESYREL) 25 MG BEDTIME PRN PRN PO Nitroglycerin (NITRO-BID) 0.5 INCH DAILY TRANSDE RM Finasteride (PROSCAR) 5 MG DAILY PO Tamsulosin HCl (Flomax 0.4 mg) 0.4 MG BID PO Docusate Sodium (COLACE) 100 MG BID PO Lactulose (LACTULOSE) 20 GM BID PRN PRN PO Doxycycline Monohydrate (DOXYCYCLINE MONOHYDRATE ) 100 MG Q12HR PO Clopidogrel Bisulfate (Plavix) 75 MG BEDTIME PO (DA) Rivaroxaban (XARELTO 20MG) 20 MG DAILY PO (DA) Amlodipine Besylate (NORVASC) 5 MG DAILY PO (DA) Aspirin (ASPIRIN) 81 MG DAILY PO (DA) Losartan Potassium (COZAAR) 100 MG DAILY PO (DC) Metoprolol Tartrate (LOPRESSOR) 25 MG BEDTIME PO Cyanocobalamin (Vitamin B-12 500 mcg tab) 500 MC G DAILY PO Folic Acid (FOLIC ACID) 1 MG DAILY PO Multivitamins (TAB-A-FINESSE) 1 TAB DAILY PO Sterile Water (WATER FOR INJECTION) 1.2 ML ASDIR PRN IV Thiamine HCl (THIAMINE HCL) 100 MG DAILY PO Ziprasidone (GEODON 20MG VIAL) 10 MG Q6H PRN PRN IM Lorazepam (ATIVAN) 1 MG Q6H PRN PRN IV (DC) Sodium Chloride (SODIUM CHLORIDE) 0 ASDIR PRN IV (DC) Nutrition assessment: The data set between the solid lines has been im ported from the dietitian's assessment. Any exceptions have been noted under Provider comments. BMI Calculated: 27.4 Nutrition related diagnosis: Nutrition diagnosis details: Nutrition problem: Nutrition etiology: Nutrition signs and symptoms: Nutrition prescription: Dietitian name: Assessment completed: Provider comments on imported dietitian assessme nt: Physical Exam General appearance: alert, awake, oriented Head/Eyes: atraumatic, EOMI, normocephalic, PERR L ENT: moist mucosal membranes Neck: full range of motion, non-tender Cardiovascular: normal heart sounds, regular rat e rhythm Respiratory: aerating well, clear to auscultatio n Abdomen: non-tender, normal bowel sounds, soft, no distention Genitourinary: no bladder distention Extremities: no clubbing, no cyanosis, no edema Skin: no rash Ulcer: Type/cause: arterial Duration: chronic Location: foot Laterality: left Stage: 3 Results Findings/Data: Laboratory Tests 07/15 414 Chemistry Sodium (134 - 147 mEq/L) 141 Potassium (3.4 - 5.0 mEq/L) 4.1 Chloride (100 - 108 mEq/L) 110 H Carbon Dioxide (21 - 33 mEq/l) 25 Anion Gap (0 - 20) 10 BUN (7 - 18 mg/dL) 19 H Creatinine (0.6 - 1.3 mg/dL) 0.9 Glomerular Filtr Rate (70 - 80) 80.2 H Glucose (70 - 110 mg/dL) 105 Calcium (8.0 - 10.5 mg/dL) 8.3 Laboratory Tests 07/15 414 Coagulation INR (0.8 - 1.2) 2.2 H PTT ([place]) (25.0 - 39.5 Seconds) 32.7 PT Patient/Control Mix (9.3 - 12.9 SECONDS) 24. 3 H Laboratory Tests 07/15 414 Hematology WBC (4.5 - 11.0 x10 3/uL) 8.4 RBC (4.00 - 5.60 x10 6/uL) 2.30 L Hgb (12.5 - 16.9 g/dL) 7.1 L Hct (37.5 - 50.7 %) 22.3 L MCV (81.0 - 99.0 fL) 97.0 MCH (27.0 - 33.0 pg) 30.9 MCHC (33.0 - 37.0 g/dL) 31.8 L RDW (11.5 - 14.5 %) 14.7 H Plt Count (150 - 400 x10 3/uL) 313 MPV (7.0 - 9.0 fL) 9.8 H Neut % (Auto) (56.0 - 77.0 %) 64.1 Lymph % (Auto) (14.0 - 32.0 %) 22.7 Person % (Auto) (4.8 - 9.0 %) 9.7 H Eos % (Auto) (0.3 - 3.7 %) 1.8 Baso % (Auto) (0.0 - 2.0 %) 1.0 Neut # (Auto) (2.0 - 7.6 x10 3/uL) 5.36 Lymph # (Auto) (1.0 - 3.8 x10 3/uL) 1.90 Person # (Auto) (0.1 - 0.8 x10 3/uL) 0.81 H Eos # (Auto) (0.0 - 0.2 x10 3/uL) 0.15 Baso # (Auto) (0.0 - 0.2 x10 3/uL) 0.08 Abs Immat Gran (auto) (0.00 - 0.03 x10 3/uL) 0. 06 H Add Manual Diff NO Immature Gran % (0.0 - 2.0 %) 0.7 Nucleated RBC % (0 - 0 %) 0.0 Nucleated RBCs # (Man) (0.0 - 0.1 x10 3/uL) 0.0 0 Laboratory Tests 07/14 1718 Serology SARS-CoV-2 Ag (Rapid) (Negative) Negative Diagnosis, Assessment Plan Free Text DxA P Notes Free text DxA P notes: 1. Left lower extremity swelling. 2. Peripheral vascular disease. 3. Atrial fibrillation. 4. Foot wounds. 5. Questionable history of syncope. 6. Alcohol use. 7. Benign prostatic hypertrophy. 8. Hypertension. 9. Likely dementia. Improving mentation, continue to monitor. Pain/ discomfort related to reperfusion. Empiric abx. Swelling improving. Continue med tx. Monitor BP/ HR. Foot wound care. Appreciate Psych, Vasc, Pod input. Start PT/OT. CM to assist with dc planning. Urinary symptoms possible related to BPH; Add Av odart and increase Flomax. d/w dtr, all questions answered. 07/13/2021 Patient with left leg swelli ng, peripheral vascular disease, A. fib, foot wounds , BPH, hypertension Mental status much better today He states he feels depressed and misses his who 12 years ago Psych has been consulted PT/OT on board Vitals reviewed acceptable Labs reviewed acceptable Encouraged PT/OT PMNR consulted as patient st ates that he lives at home and wants to return back home when better 07/14/21 doing ok vitals reviewed-some hypotension today stop losartan and amlodipine Labs reviewed-Hb dropped stool OB requested and reported positive GI consulted hold xarelto and asa and plavix cardio consulted for further recommendations patient has 2 daughters, both son in law at bedside today and patient in their presence okaying rehab [facility] consulted PMNR help appreciated CM to help with rehab arrangement, preferable pr ivate bed/not a shared room repeat labs in am 07/15/21 doing ok vitals reviewed-BP low labs reviewed-Hb lower than yesterday holding xarelto and ASA and plavix cardio has evaluated the patient GI help appreciated EGD/Colonoscopy in plan Iron studies requested will give one unit PRBC today as anemic and hypo tensive PMNR following, will dc to rehab once medically cleared Electronically Signed by Adry Ortiz MD on 07/15 at 1638 RPT #:[id number] END OF REPORT 2021-07-15 14:58:00-00:00 [id number] [address] PATIENT NAME: KAYLYNN MISTRY ADMIT DATE: 2 ACCOUNT NO: [id number] [place] [facility] [place]GE: 85 REPORT TYPE: ENDOSCOPY REPORT SEX: M ADMITTING PHYSICIAN:Santiago Garcia MD ATTENDING PHYSICIAN:Santiago Garcia MD Gastroenterology Patient Name: Kaylynn Mistry Procedure Date: 07/01 2:58 PM Date of : 1935 Procedure: Colonoscopy Indications: Gastrointestinal occult blood loss Patient Profile: This is an 85 year old male. Providers: Alfredito Jerez MD Referring MD: Self Referred Requesting Provider: Medicines: Monitored Anesthesia Care Procedure: Pre-Anesthesia Assessment: - Airway Examination: normal oropharyngeal airw ay and neck mobility. - H and P completed, I have examined the patien t on this date and have reviewed the medical history , drug history, and previous anesthesia experience. R esults of the relevant diagnostic studies have been re viewed. Planned choice of anesthesia, risk, complicatio ns, benefits and alternatives have been discussed. - ASA Grade Assessment: III - A patient with se braulio systemic disease. After I obtained informed consent, the scope wa s passed under direct vision. Throughout the proc edure, the patient's blood pressure, pulse, and oxyge n saturations were monitored continuously. The Colonoscope was introduced through the anus and advanced to the transverse colon. The colonosco py was performed without difficulty. The patient placido ated the procedure well. The quality of the bowel preparation was poor. Findings: Multiple large-mouthed diverticula were found i n the sigmoid colon and descending colon. Non-bleeding external and internal hemorrhoids were found during retroflexion. The hemorrhoids were moderate. Complications: No immediate complications. PATIENT NAME: KAYLYNN MISTRY 0883 Estimated Blood Loss: Estimated blood loss: none. Impression: - Preparation of the colon was poor. - Diverticulosis in the sigmoid colon and in th e descending colon. - Non-bleeding external and internal hemorrhoid s. - Brown stool, no overt bleeding - No specimens collected. Recommendation: - Monitor for overt gastrointest inal bleeding - Advance diet as tolerated. Procedure Code(s): --- Professional --- 63343, 53, Colonoscopy, flexible; diagnostic, including collection of specimen(s) by brushing or washing, when performed (separate procedure) Diagnosis Code(s): --- Professional --- K64.8, Other hemorrhoids R19.5, Other fecal abnormalities K57.30, Diverticulosis of large intestine witho ut perforation or abscess without bleeding CPT copyright 2020 [employer]. All rights reserved. The codes documented in this report are prelimin zoie and upon clinical coder review may be revised to meet current compliance requiremen ts. Alfredito Jerez MD Alfredito Jerez MD 07/15/2021 3:18:53 PM This report has been signed electronically. Number of Addenda: 0 Note Initiated On: 07/15/2021 2:58 PM Provation {[id number] Pro[employer]ation FT PDF Electronically Signed by Alfredito Jerez MD on at 5596 PATIENT NAME: KAYLYNN MISTRY 0883 2021-07-15 14:13:00-00:00 [id number] [place] [address] PATIENT NAME: KAYLYNN MISTRY ADMIT DATE: 2 ACCOUNT NO: [id number] ROOM NO: [id number] AGE: 85 REPORT TYPE: ENDOSCOPY REPORT SEX: M ADMITTING PHYSICIAN:Santiago Garcia MD ATTENDING PHYSICIAN:Santiago Garcia MD Gastroenterology Patient Name: Kaylynn Mistry Procedure Date: 07/01 2:13 PM Date of : 1935 Procedure: Upper GI endoscopy Indications: Suspected upper gastrointestinal bl eeding Providers: Alfredito Jerez MD Referring MD: Self Referred Requesting Provider: Medicines: Monitored Anesthesia Care Procedure: Pre-Anesthesia Assessment: - Prior to the procedure, a History and Physica l was performed, and patient medications and allergie s were reviewed. The patient's tolerance of previous anesthesia was also reviewed. The risks and be nefits of the procedure and the sedation options and r isks were discussed with the patient. All questions were answered, and informed consent was obtained. Pr ior Anticoagulants: The patient has taken anticoagu lant medication, last dose was day of procedure. A Grade Assessment: III - A patient with severe systemi c disease. After reviewing the risks and benefits , the patient was deemed in satisfactory condition to undergo the procedure. After obtaining informed consent, the endoscope was passed under direct vision. Throughout the proc edure, the patient's blood pressure, pulse, and oxygen saturations were monitored continuously. The E ndoscope was introduced through the mouth, and advanced to the second part of duodenum. The upper GI endoscopy was accomplished without difficulty. The patient to lerated the procedure well. Findings: LA Grade B (one or more mucosal breaks greater than 5 mm, not extending between the tops of two mucosal folds) esophagi tis with no bleeding was found. Localized moderate inflammation characterized b y shallow ulcerations was found in the stomach. The examined duodenum was normal. PATIENT NAME: KAYLYNN MISTRY 0883 Complications: No immediate complications. Estimated Blood Loss: Estimated blood loss: none. Impression: - LA Grade B reflux esophagitis wit h no bleeding. - Chronic gastritis. - Normal examined duodenum. - No specimens collected. Recommendation: - Continue present medications. - Proceed with colonoscopy. Procedure Code(s): --- Professional --- 43953, Esophagogastroduodenoscopy, flexible, transoral; diagnostic, including collection of specimen(s) by brushing or washing, when perfor med (separate procedure) Diagnosis Code(s): --- Professional --- K21.00, Gastro-esophageal reflux disease with esophagitis, without bleeding K29.50, Unspecified chronic gastritis without b leeding CPT copyright 2020 [employer]. All rights reserved. The codes documented in this report are prelimin zoie and upon clinical coder review may be revised to meet current compliance requiremen ts. Alfredito Jerez MD Alfredito Jerez MD 07/15/2021 3:15:56 PM This report has been signed electronically. Number of Addenda: 0 Note Initiated On: 07/15/2021 2:13 PM Provation {[id number] ProVation FT PDF Electronically Signed by Alfredito Jerez MD on at 1516 PATIENT NAME: KAYLYNN MISTRY 0883 2021-07-15 09:41:00-00:00 [facility] ([facility]) Cardiology Progress Note REPORT#:[id number] REPORT STATUS: Signed DATE:07/15/21 TIME: 940 PATIENT: KAYLYNN MISTRY UNIT #: [id number] ROOM/BED: 5536-1 : 35 AGE: 85 SEX: M ATTEND: Vinnie Garcia MD ADM AUTHOR: Katy Jack RESEARCH GEOLOGIST * ALL edits or amendments must be made on the [employer] document * Subjective Chief complaint: pleasantly confused Objective General VS/I O: 24 hour I O ending at 0700: 07/15 0700 07/14 1900 Intake Total 500 200 Output Total 350 Balance 150 200 Intake, Oral 500 200 Number 4 Bowel Movements Output, Urine 350 Vital Signs: Date Time Temp Pulse Resp B/P B/P Pulse O2 O2 F low FiO2 Mean Ox Delivery Rate 07/15 0714 36.7 85 18 93/53 66.1 97 07/15 0548 37.1 93 14 97/53 67.8 96 07/15 0102 36.8 79 14 106/66 79.1 99 07/14 2104 36.9 90 14 122/69 86.9 98 07/14 1611 36.8 74 18 108/70 82.4 07/14 1248 95 100 07/14 1136 36.7 93 18 105/63 76.5 82 07/14 1005 91 91/63 72.0 PATIENT WEIGHT: Weight (lb): 184 Weight (oz): Weight (kg): 83.461 Medications: Active Meds + DC'd Last 24 Hrs Polyethylene Glycol/Electrolytes (GOLYTELY) 4,00 0 ML ONCE ONE PO (DC) Trazodone HCl (DESYREL) 25 MG BEDTIME PRN PRN PO Nitroglycerin (NITRO-BID) 0.5 INCH DAILY TRANSDE RM Finasteride (PROSCAR) 5 MG DAILY PO Tamsulosin HCl (Flomax 0.4 mg) 0.4 MG BID PO Docusate Sodium (COLACE) 100 MG BID PO Lactulose (LACTULOSE) 20 GM BID PRN PRN PO Doxycycline Monohydrate (DOXYCYCLINE MONOHYDRATE ) 100 MG Q12HR PO Clopidogrel Bisulfate (Plavix) 75 MG BEDTIME PO (DA) Rivaroxaban (XARELTO 20MG) 20 MG DAILY PO (DA) Amlodipine Besylate (NORVASC) 5 MG DAILY PO (DA) Aspirin (ASPIRIN) 81 MG DAILY PO (DA) Losartan Potassium (COZAAR) 100 MG DAILY PO (DC) Metoprolol Tartrate (LOPRESSOR) 25 MG BEDTIME PO Cyanocobalamin (Vitamin B-12 500 mcg tab) 500 MC G DAILY PO Folic Acid (FOLIC ACID) 1 MG DAILY PO Multivitamins (TAB-A-FINESSE) 1 TAB DAILY PO Sterile Water (WATER FOR INJECTION) 1.2 ML ASDIR PRN IV Thiamine HCl (THIAMINE HCL) 100 MG DAILY PO Ziprasidone (GEODON 20MG VIAL) 10 MG Q6H PRN PRN IM Lorazepam (ATIVAN) 1 MG Q6H PRN PRN IV (DC) Sodium Chloride (SODIUM CHLORIDE) 0 ASDIR PRN IV (DC) Physical Exam General appearance: alert, awake, no acute distr ess, pleasant, conversational Neck: no JVD Cardiovascular: CV assessment: irregularly irregular Respiratory: clear to auscultation, no distress Abdomen: soft, non-tender, normal bowel sounds, no distention Genitourinary: no flank pain, no medina Lower extremity: LE assessment: no edema Musculoskeletal: normal inspection Neuro/HAND COLLATOR: alert, normal speech Skin: poor skin turgor Ulcer: Type/cause: arterial Duration: chronic Location: foot Laterality: left Stage: 3 Psychiatry: normal mood Results Findings/Data: Laboratory Tests 07/15 414 Chemistry Sodium (134 - 147 mEq/L) 141 Potassium (3.4 - 5.0 mEq/L) 4.1 Chloride (100 - 108 mEq/L) 110 H Carbon Dioxide (21 - 33 mEq/l) 25 Anion Gap (0 - 20) 10 BUN (7 - 18 mg/dL) 19 H Creatinine (0.6 - 1.3 mg/dL) 0.9 Glomerular Filtr Rate (70 - 80) 80.2 H Glucose (70 - 110 mg/dL) 105 Calcium (8.0 - 10.5 mg/dL) 8.3 Laboratory Tests 07/15 414 Coagulation INR (0.8 - 1.2) 2.2 H PTT (Shira) (25.0 - 39.5 Seconds) 32.7 PT Patient/Control Mix (9.3 - 12.9 SECONDS) 24. 3 H Laboratory Tests 07/15 0415 Hematology WBC (4.5 - 11.0 x10 3/uL) 8.4 RBC (4.00 - 5.60 x10 6/uL) 2.30 L Hgb (12.5 - 16.9 g/dL) 7.1 L Hct (37.5 - 50.7 %) 22.3 L MCV (81.0 - 99.0 fL) 97.0 MCH (27.0 - 33.0 pg) 30.9 MCHC (33.0 - 37.0 g/dL) 31.8 L RDW (11.5 - 14.5 %) 14.7 H Plt Count (150 - 400 x10 3/uL) 313 MPV (7.0 - 9.0 fL) 9.8 H Neut % (Auto) (56.0 - 77.0 %) 64.1 Lymph % (Auto) (14.0 - 32.0 %) 22.7 Person % (Auto) (4.8 - 9.0 %) 9.7 H Eos % (Auto) (0.3 - 3.7 %) 1.8 Baso % (Auto) (0.0 - 2.0 %) 1.0 Neut # (Auto) (2.0 - 7.6 x10 3/uL) 5.36 Lymph # (Auto) (1.0 - 3.8 x10 3/uL) 1.90 Person # (Auto) (0.1 - 0.8 x10 3/uL) 0.81 H Eos # (Auto) (0.0 - 0.2 x10 3/uL) 0.15 Baso # (Auto) (0.0 - 0.2 x10 3/uL) 0.08 Abs Immat Gran (auto) (0.00 - 0.03 x10 3/uL) 0. 06 H Add Manual Diff NO Immature Gran % (0.0 - 2.0 %) 0.7 Nucleated RBC % (0 - 0 %) 0.0 Nucleated RBCs # (Man) (0.0 - 0.1 x10 3/uL) 0.0 0 Laboratory Tests 07/14 1719 Serology SARS-CoV-2 Ag (Rapid) (Negative) Negative Microbiology Date/Time Procedure - Status Source Growth 07/14 1500 Occult Blood - COMP STOOL Results: labs reviewed, vital signs reviewed, EK G personally reviewed EKG Interpretation: atrial fibrillation (RBBB) Diagnosis, Assessment Plan Plan discussed with: patient, family friend who is at the bedside Free Text DxA P Notes Free Text DxA P Notes: 85 YO male with PMHx of HTN, PAF on chronic anticoagulation, and PAD with prior vascular interventions who is admitted with leg pain and swelling. Today hemoglobin dropped 7.3 from 8.5. Stool is positive for occult blood. GI has been consulted and planning for EGD. Cardiology is co nsulted to evaluate if anticogulation can be discontinued given anemi a nd possible GI bleed. The patient otherwise is awake a nd alert. He denies any palpitation, chest pain, or shortness of breath. He has been refusing teleme try monitor. 1. Chronic atrial fibrillation - rate controlled refusing telemetry hold Xarelto d/t anemia and possible GIB continue BB as long as BP stable [id number] score 5 HAS-BLED score 4 would benefit from LAP occlu jorge, amulet or watchman. will discuss with patient' s daughter Judie 2. PAD with prior vascular interventions/foot ul cers Vascular surgery and podiatry onboard 3. Hypertension BP on the hypotenside BP meds held - resume when approriate 4. Anemia/Positive stool OB GI following Transfuse as needed for upper and lower endoscopy today at 1200 RPT #:[id number] END OF REPORT 2021-07-15 09:41:00-00:00 [facility] Card[facility] Progress Note REPORT#:[id number] REPORT STATUS: Signed DATE:07/15/21 TIME: 940 PATIENT: KAYLYNN MISTRY UNIT #: [id number] ROOM/BED: 3344-1 : 35 AGE: 85 SEX: M ATTEND: Vinnie Garcia MD ADM AUTHOR: Katy Jack CNP * ALL edits or amendments must be made on the [employer]/computer document * Subjective Chief complaint: pleasantly confused Objective General VS/I O: 24 hour I O ending at 0700: 07/15 0700 07/14 1900 Intake Total 500 200 Output Total 350 Balance 150 200 Intake, Oral 500 200 Number 4 Bowel Movements Output, Urine 350 Vital Signs: Date Time Temp Pulse Resp B/P B/P Pulse O2 O2 F low FiO2 Mean Ox Delivery Rate 07/15 0714 36.7 85 18 93/53 66.1 97 07/15 0548 37.1 93 14 97/53 67.8 96 07/15 0102 36.8 79 14 106/66 79.1 99 07/14 2104 36.9 90 14 122/69 86.9 98 07/14 1611 36.8 74 18 108/70 82.4 07/14 1248 95 100 07/14 1136 36.7 93 18 105/63 76.5 82 07/14 1005 91 91/63 72.0 PATIENT WEIGHT: Weight (lb): 184 Weight (oz): Weight (kg): 83.461 Medications: Active Meds + DC'd Last 24 Hrs Polyethylene Glycol/Electrolytes (GOLYTELY) 4,00 0 ML ONCE ONE PO (DC) Trazodone HCl (DESYREL) 25 MG BEDTIME PRN PRN PO Nitroglycerin (NITRO-BID) 0.5 INCH DAILY TRANSDE RM Finasteride (PROSCAR) 5 MG DAILY PO Tamsulosin HCl (Flomax 0.4 mg) 0.4 MG BID PO Docusate Sodium (COLACE) 100 MG BID PO Lactulose (LACTULOSE) 20 GM BID PRN PRN PO Doxycycline Monohydrate (DOXYCYCLINE MONOHYDRATE ) 100 MG Q12HR PO Clopidogrel Bisulfate (Plavix) 75 MG BEDTIME PO (DA) Rivaroxaban (XARELTO 20MG) 20 MG DAILY PO (DA) Amlodipine Besylate (NORVASC) 5 MG DAILY PO (DA) Aspirin (ASPIRIN) 81 MG DAILY PO (DA) Losartan Potassium (COZAAR) 100 MG DAILY PO (DC) Metoprolol Tartrate (LOPRESSOR) 25 MG BEDTIME PO Cyanocobalamin (Vitamin B-12 500 mcg tab) 500 MC G DAILY PO Folic Acid (FOLIC ACID) 1 MG DAILY PO Multivitamins (TAB-A-FINESSE) 1 TAB DAILY PO Sterile Water (WATER FOR INJECTION) 1.2 ML ASDIR PRN IV Thiamine HCl (THIAMINE HCL) 100 MG DAILY PO Ziprasidone (GEODON 20MG VIAL) 10 MG Q6H PRN PRN IM Lorazepam (ATIVAN) 1 MG Q6H PRN PRN IV (DC) Sodium Chloride (SODIUM CHLORIDE) 0 ASDIR PRN IV (DC) Physical Exam General appearance: alert, awake, no acute distr ess, pleasant, conversational Neck: no JVD Cardiovascular: CV assessment: irregularly irregular Respiratory: clear to auscultation, no distress Abdomen: soft, non-tender, normal bowel sounds, no distention Genitourinary: no flank pain, no medina Lower extremity: LE assessment: no edema Musculoskeletal: normal inspection Neuro/HAND COLLATOR: alert, normal speech Skin: poor skin turgor Ulcer: Type/cause: arterial Duration: chronic Location: foot Laterality: left Stage: 3 Psychiatry: normal mood Results Findings/Data: Laboratory Tests 07/15 414 Chemistry Sodium (134 - 147 mEq/L) 141 Potassium (3.4 - 5.0 mEq/L) 4.1 Chloride (100 - 108 mEq/L) 110 H Carbon Dioxide (21 - 33 mEq/l) 25 Anion Gap (0 - 20) 10 BUN (7 - 18 mg/dL) 19 H Creatinine (0.6 - 1.3 mg/dL) 0.9 Glomerular Filtr Rate (70 - 80) 80.2 H Glucose (70 - 110 mg/dL) 105 Calcium (8.0 - 10.5 mg/dL) 8.3 Laboratory Tests 07/15 414 Coagulation INR (0.8 - 1.2) 2.2 H PTT (Shira) (25.0 - 39.5 Seconds) 32.7 PT Patient/Control Mix (9.3 - 12.9 SECONDS) 24. 3 H Laboratory Tests 07/15 414 Hematology WBC (4.5 - 11.0 x10 3/uL) 8.4 RBC (4.00 - 5.60 x10 6/uL) 2.30 L Hgb (12.5 - 16.9 g/dL) 7.1 L Hct (37.5 - 50.7 %) 22.3 L MCV (81.0 - 99.0 fL) 97.0 MCH (27.0 - 33.0 pg) 30.9 MCHC (33.0 - 37.0 g/dL) 31.8 L RDW (11.5 - 14.5 %) 14.7 H Plt Count (150 - 400 x10 3/uL) 313 MPV (7.0 - 9.0 fL) 9.8 H Neut % (Auto) (56.0 - 77.0 %) 64.1 Lymph % (Auto) (14.0 - 32.0 %) 22.7 Person % (Auto) (4.8 - 9.0 %) 9.7 H Eos % (Auto) (0.3 - 3.7 %) 1.8 Baso % (Auto) (0.0 - 2.0 %) 1.0 Neut # (Auto) (2.0 - 7.6 x10 3/uL) 5.36 Lymph # (Auto) (1.0 - 3.8 x10 3/uL) 1.90 Person # (Auto) (0.1 - 0.8 x10 3/uL) 0.81 H Eos # (Auto) (0.0 - 0.2 x10 3/uL) 0.15 Baso # (Auto) (0.0 - 0.2 x10 3/uL) 0.08 Abs Immat Gran (auto) (0.00 - 0.03 x10 3/uL) 0. 06 H Add Manual Diff NO Immature Gran % (0.0 - 2.0 %) 0.7 Nucleated RBC % (0 - 0 %) 0.0 Nucleated RBCs # (Man) (0.0 - 0.1 x10 3/uL) 0.0 0 Laboratory Tests 07/14 1719 Serology SARS-CoV-2 Ag (Rapid) (Negative) Negative Microbiology Date/Time Procedure - Status Source Growth 07/14 1500 Occult Blood - COMP STOOL Results: labs reviewed, vital signs reviewed, EK G personally reviewed EKG Interpretation: atrial fibrillation (RBBB) Diagnosis, Assessment Plan Plan discussed with: patient, family friend who is at the bedside Free Text DxA P Notes Free Text DxA P Notes: 85 YO male with PMHx of HTN, PAF on chronic anticoagulation, and PAD with prior vascular interventions who is admitted with leg pain and swelling. Today hemoglobin dropped 7.3 from 8.5. Stool is positive for occult blood. GI has been consulted and planning for EGD. Cardiology is co nsulted to evaluate if anticogulation can be discontinued given anemi a nd possible GI bleed. The patient otherwise is awake a nd alert. He denies any palpitation, chest pain, or shortness of breath. He has been refusing teleme try monitor. 1. Chronic atrial fibrillation - rate controlled refusing telemetry hold Xarelto d/t anemia and possible GIB continue BB as long as BP stable [id number] score 5 HAS-BLED score 4 would benefit from LAP occlu jorge, amulet or watchman. will discuss with patient' s daughter Judie 2. PAD with prior vascular interventions/foot ul cers Vascular surgery and podiatry onboard 3. Hypertension BP on the hypotenside BP meds held - resume when approriate 4. Anemia/Positive stool OB GI following Transfuse as needed for upper and lower endoscopy today at 1200 Electronically Signed by Antonina Day MD on at 0758 RPT #:[id number] END OF REPORT 2021-07-15 09:27:00-00:00 [facility] Note REPORT#:[id number] REPORT STATUS: Signed DATE:07/15/21 TIME: 926 PATIENT: KAYLYNN MISTRY UNIT #: [id number] [place] [facility] [place] AGE: 85 SEX: M ATTEND: Vinnie Garcia MD ADM AUTHOR: Alfredito Jerez MD * ALL edits or amendments must be made on the [employer]/computer document * Subjective Comments: sleeping, wakes up confused, did not finish prep Objective General VS/I O: Last Documented: Result Date Time Pulse Ox 97 07/15 713 B/P 93/53 07/15 713 B/P Mean 66.1 07/15 713 Temp 36.7 07/15 713 Pulse 85 07/15 713 Resp 18 07/15 713 O2 Delivery Room air 07/13 1627 24 hour I O ending at 0700: 07/15 0700 07/14 1900 Intake Total 500 200 Output Total 350 Balance 150 200 Intake, Oral 500 200 Number 4 Bowel Movements Output, Urine 350 PATIENT WEIGHT: Weight (lb): 184 Weight (oz): Weight (kg): 83.461 Medications: Active Meds + DC'd Last 24 Hrs Polyethylene Glycol/Electrolytes (GOLYTELY) 4,00 0 ML ONCE ONE PO (DC) Trazodone HCl (DESYREL) 25 MG BEDTIME PRN PRN PO Nitroglycerin (NITRO-BID) 0.5 INCH DAILY TRANSDE RM Finasteride (PROSCAR) 5 MG DAILY PO Tamsulosin HCl (Flomax 0.4 mg) 0.4 MG BID PO Docusate Sodium (COLACE) 100 MG BID PO Lactulose (LACTULOSE) 20 GM BID PRN PRN PO Doxycycline Monohydrate (DOXYCYCLINE MONOHYDRATE ) 100 MG Q12HR PO Clopidogrel Bisulfate (Plavix) 75 MG BEDTIME PO (DA) Rivaroxaban (XARELTO 20MG) 20 MG DAILY PO (DA) Amlodipine Besylate (NORVASC) 5 MG DAILY PO (DA) Aspirin (ASPIRIN) 81 MG DAILY PO (DA) Losartan Potassium (COZAAR) 100 MG DAILY PO (DC) Metoprolol Tartrate (LOPRESSOR) 25 MG BEDTIME PO Cyanocobalamin (Vitamin B-12 500 mcg tab) 500 MC G DAILY PO Folic Acid (FOLIC ACID) 1 MG DAILY PO Multivitamins (TAB-A-FINESSE) 1 TAB DAILY PO Sterile Water (WATER FOR INJECTION) 1.2 ML ASDIR PRN IV Thiamine HCl (THIAMINE HCL) 100 MG DAILY PO Ziprasidone (GEODON 20MG VIAL) 10 MG Q6H PRN PRN IM Lorazepam (ATIVAN) 1 MG Q6H PRN PRN IV (DC) Sodium Chloride (SODIUM CHLORIDE) 0 ASDIR PRN IV (DC) Physical Exam General appearance: sleeping comfortably HEENT: abnl conjunctiva/sclera, dry mucosal memb ranes Neck: decreased range of motion Cardiovascular: normal capillary refill, regular rate rhythm Respiratory: aerating well, symmetric expansion Abdomen: non-tender Extremities: decreased range of motion Musculoskeletal: decreased ROM Neuro/HAND COLLATOR: disoriented Skin: abnormal color, abnormal temperature, ecch ymosis Ulcer: Type/cause: arterial Duration: chronic Location: foot Laterality: left Stage: 3 Psychiatry: abnl judgment/insight Results Findings/Data: Laboratory Tests 07/15/21414: [Embedded Image Not Available] Laboratory Tests 07/15 414 Chemistry Sodium (134 - 147 mEq/L) 141 Potassium (3.4 - 5.0 mEq/L) 4.1 Chloride (100 - 108 mEq/L) 110 H Carbon Dioxide (21 - 33 mEq/l) 25 Anion Gap (0 - 20) 10 BUN (7 - 18 mg/dL) 19 H Creatinine (0.6 - 1.3 mg/dL) 0.9 Glomerular Filtr Rate (70 - 80) 80.2 H Glucose (70 - 110 mg/dL) 105 Calcium (8.0 - 10.5 mg/dL) 8.3 Laboratory Tests 07/15 414 Coagulation INR (0.8 - 1.2) 2.2 H PTT ([place]) (25.0 - 39.5 Seconds) 32.7 PT Patient/Control Mix (9.3 - 12.9 SECONDS) 24. 3 H Laboratory Tests 07/15 414 Hematology WBC (4.5 - 11.0 x10 3/uL) 8.4 RBC (4.00 - 5.60 x10 6/uL) 2.30 L Hgb (12.5 - 16.9 g/dL) 7.1 L Hct (37.5 - 50.7 %) 22.3 L MCV (81.0 - 99.0 fL) 97.0 MCH (27.0 - 33.0 pg) 30.9 MCHC (33.0 - 37.0 g/dL) 31.8 L RDW (11.5 - 14.5 %) 14.7 H Plt Count (150 - 400 x10 3/uL) 313 MPV (7.0 - 9.0 fL) 9.8 H Neut % (Auto) (56.0 - 77.0 %) 64.1 Lymph % (Auto) (14.0 - 32.0 %) 22.7 Person % (Auto) (4.8 - 9.0 %) 9.7 H Eos % (Auto) (0.3 - 3.7 %) 1.8 Baso % (Auto) (0.0 - 2.0 %) 1.0 Neut # (Auto) (2.0 - 7.6 x10 3/uL) 5.36 Lymph # (Auto) (1.0 - 3.8 x10 3/uL) 1.90 Person # (Auto) (0.1 - 0.8 x10 3/uL) 0.81 H Eos # (Auto) (0.0 - 0.2 x10 3/uL) 0.15 Baso # (Auto) (0.0 - 0.2 x10 3/uL) 0.08 Abs Immat Gran (auto) (0.00 - 0.03 x10 3/uL) 0. 06 H Add Manual Diff NO Immature Gran % (0.0 - 2.0 %) 0.7 Nucleated RBC % (0 - 0 %) 0.0 Nucleated RBCs # (Man) (0.0 - 0.1 x10 3/uL) 0.0 0 Laboratory Tests 07/14 1718 Serology SARS-CoV-2 Ag (Rapid) (Negative) Negative Microbiology Date/Time Procedure - Status Source Growth 07/14 1500 Occult Blood - COMP STOOL Diagnosis, Assessment Plan Free Text A P: worsening anemia FOBT+ delirium, improved chronic anticoagulation chronic antiplatelet therapy coagulopathy - benefits and risks discussed with daughter who would like to pursue egd/ colonoscopy - monitor h/h, transfuse as needed - egd/unprepped colonoscopy today Electronically Signed by Alfredito Jerez MD on at 0928 RPT #:[id number] END OF REPORT 2021-07-15 07:32:00-00:00 [id number] [place] [address] PATIENT NAME: KAYLYNN MISTRY ADMIT DATE: 2 ACCOUNT NO: [id number] ROOM NO: [id number] AGE: 85 REPORT TYPE: eELECTROCARDIOGRAM REPORT SEX: M ADMITTING PHYSICIAN:Santiago Garcia MD ATTENDING PHYSICIAN:Santiago Garcia MD Order: [id number] Test Reason : atrial fibrillation Test Date/Time Stamp: SunJul 15 2021 07:32:45 Blood Pressure : / mmHG Vent. Rate : 081 BPM Atrial Rate : 081 BPM P-R Int : 000 ms QRS Dur : 150 ms QT Int : 424 ms P-R-T Axes : 000 -51 032 degree s QTc Int : 492 ms Atrial fibrillation with pre mature ventricular or aberrantly conducted complexes Left axis deviation Right bundle branch block Abnormal ECG When compared with ECG of 08-JUL-2021 18:21, No significant change was found Confirmed by MD DAY MOLHAM ([id number]) on 2021 12:16:50 PM Referred By: Self Referred Confirmed by:ANTONINA DEL CID MD Electronically Signed by Antonina Day MD on 0 10/16/21 at 1216 PATIENT NAME: KAYLYNN MISTRY 0883 2021-07-15 06:57:00-00:00 [facility] Progress Note REPORT#:[id number] REPORT STATUS: Signed DATE:07/15/21 TIME: 656 PATIENT: KAYLYNN MISTRY UNIT #: [id number] ROOM/BED: [place] [address] : 35 AGE: 85 SEX: M ATTEND: Vinnie Garcia MD ADM AUTHOR: Harish Garcia * ALL edits or amendments must be made on the [employer] document * Subjective Chief complaint: Rehab follow-up PT deferred yesterday due to low blood pressure Feels okay NAD Objective General VS: Vital Signs: Date Time Temp Pulse Resp B/P B/P Pulse O2 O2 F low FiO2 Mean Ox Delivery Rate 07/15 0548 98.8 93 14 97/53 67.8 96 07/15 0102 98.2 79 14 106/66 79.1 99 07/14 2104 98.4 90 14 122/69 86.9 98 07/14 1611 98.2 74 18 108/70 82.4 07/14 1248 95 100 07/14 1136 98.1 93 18 105/63 76.5 82 07/14 1005 91 91/63 72.0 07/14 0803 98.6 85 18 99/66 77.1 97 PATIENT WEIGHT: Weight (lb): 184 Weight (oz): Weight (kg): 83.461 Medications: Active Meds + DC'd Last 24 Hrs Polyethylene Glycol/Electrolytes (GOLYTELY) 4,00 0 ML ONCE ONE PO (DC) Trazodone HCl (DESYREL) 25 MG BEDTIME PRN PRN PO Nitroglycerin (NITRO-BID) 0.5 INCH DAILY TRANSDE RM Finasteride (PROSCAR) 5 MG DAILY PO Tamsulosin HCl (Flomax 0.4 mg) 0.4 MG BID PO Docusate Sodium (COLACE) 100 MG BID PO Lactulose (LACTULOSE) 20 GM BID PRN PRN PO Doxycycline Monohydrate (DOXYCYCLINE MONOHYDRATE ) 100 MG Q12HR PO Clopidogrel Bisulfate (Plavix) 75 MG BEDTIME PO (DA) Rivaroxaban (XARELTO 20MG) 20 MG DAILY PO (DA) Amlodipine Besylate (NORVASC) 5 MG DAILY PO (DA) Aspirin (ASPIRIN) 81 MG DAILY PO (DA) Losartan Potassium (COZAAR) 100 MG DAILY PO (DC) Metoprolol Tartrate (LOPRESSOR) 25 MG BEDTIME PO Cyanocobalamin (Vitamin B-12 500 mcg tab) 500 MC G DAILY PO Folic Acid (FOLIC ACID) 1 MG DAILY PO Multivitamins (TAB-A-FINESSE) 1 TAB DAILY PO Sterile Water (WATER FOR INJECTION) 1.2 ML ASDIR PRN IV Thiamine HCl (THIAMINE HCL) 100 MG DAILY PO Ziprasidone (GEODON 20MG VIAL) 10 MG Q6H PRN PRN IM Lorazepam (ATIVAN) 1 MG Q6H PRN PRN IV (DC) Sodium Chloride (SODIUM CHLORIDE) 0 ASDIR PRN IV (DC) Functional Progress Functional progress: Reason Patient Unable to Perform: Treatment Def erred Document Pain/Education: No COMMENTS: Pt'S BP 91/63 IN [place]. WILL CONTINU E TO FOLLOW. ISRRAEL RODARTE. Physical Exam General appearance: alert, awake Psych: alert, normal affect, oriented x 3 HEENT: anicteric, sclera clear Neck: supple, no JVD Cardiovascular: regular rate rhythm, S1/S2 Respiratory: aerating well, clear bilaterally Abdomen: bowel sounds present, non-distended, so ft Skin: no rash, ulcers to hallux and 4th toe Musculoskeletal - general: Musculoskeletal - general: joints normal, charan l muscle mass Neuro/HAND COLLATOR: alert, oriented X 3, CNII-XII intact Results Findings/Data: Laboratory Tests: 07/15 07/14 0415 1719 Chemistry Sodium (134 - 147 mEq/L) 141 Potassium (3.4 - 5.0 mEq/L) 4.1 Chloride (100 - 108 mEq/L) 110 H Carbon Dioxide (21 - 33 mEq/l) 25 Anion Gap (0 - 20) 10 BUN (7 - 18 mg/dL) 19 H Creatinine (0.6 - 1.3 mg/dL) 0.9 Glomerular Filtr Rate (70 - 80) 80.2 H Glucose (70 - 110 mg/dL) 105 Calcium (8.0 - 10.5 mg/dL) 8.3 Coagulation INR (0.8 - 1.2) 2.2 H PTT ([place]) (25.0 - 39.5 Seconds) 32.7 PT Patient/Control Mix (9.3 - 12.9 SECONDS) 24. 3 H Hematology WBC (4.5 - 11.0 x10 3/uL) 8.4 RBC (4.00 - 5.60 x10 6/uL) 2.30 L Hgb (12.5 - 16.9 g/dL) 7.1 L Hct (37.5 - 50.7 %) 22.3 L MCV (81.0 - 99.0 fL) 97.0 MCH (27.0 - 33.0 pg) 30.9 MCHC (33.0 - 37.0 g/dL) 31.8 L RDW (11.5 - 14.5 %) 14.7 H Plt Count (150 - 400 x10 3/uL) 313 MPV (7.0 - 9.0 fL) 9.8 H Neut % (Auto) (56.0 - 77.0 %) 64.1 Lymph % (Auto) (14.0 - 32.0 %) 22.7 Person % (Auto) (4.8 - 9.0 %) 9.7 H Eos % (Auto) (0.3 - 3.7 %) 1.8 Baso % (Auto) (0.0 - 2.0 %) 1.0 Neut # (Auto) (2.0 - 7.6 x10 3/uL) 5.36 Lymph # (Auto) (1.0 - 3.8 x10 3/uL) 1.90 Person # (Auto) (0.1 - 0.8 x10 3/uL) 0.81 H Eos # (Auto) (0.0 - 0.2 x10 3/uL) 0.15 Baso # (Auto) (0.0 - 0.2 x10 3/uL) 0.08 Abs Immat Gran (auto) (0.00 - 0.03 x10 3/uL) 0. 06 H Add Manual Diff NO Immature Gran % (0.0 - 2.0 %) 0.7 Nucleated RBC % (0 - 0 %) 0.0 Nucleated RBCs # (Man) (0.0 - 0.1 x10 3/uL) 0. 00 Serology SARS-CoV-2 Ag (Rapid) (Negative) Negative Microbiology: 07/14 1500 STOOL: Occult Blood - COMP Diagnosis, Assessment Plan Free Text A P: Generalized weakness Impaired mobility and gait Anemia PAD Ulcerations toes 1 and 4 left foot Hypertension Atrial fibrillation Alcohol use Plan: Continue PT/OT Out of bed to chair Work on strength, bed mobility, transfers, gait Increase endurance Fall precautions Monitor p.o. intake and nutrition Strict decubitus precautions Continue wound care and antibiotics Psych on case Going for EGD/colonoscopy today for + FOBT and w orsening anemia Advance therapies as tolerated IRF consulted Total time was 33 minutes > 50% with patient per forming physical examination, discussing plan of care, goals, therapies, progr ess, medications, labs. All questions answered Rehab attestation: . Electronically Signed by Harish Garcia on 0 07/15/21 at 1533 RPT #:[id number] END OF REPORT 2021-07-14 17:33:00-00:00 [facility] Progress Note REPORT#:[id number] REPORT STATUS: Signed DATE:07/14/21 TIME: 1732 PATIENT: KAYLYNN MISTRY UNIT #: [id number] ROOM/BED: [place] [id number] : 35 AGE: 85 SEX: M ATTEND: Vinnie Garcia MD ADM AUTHOR: Karsten Martines DPM * ALL edits or amendments must be made on the el [employer]/computer document * General VS/I O: Last Documented: Result Date Time B/P 108/70 07/14 1610 B/P Mean 82.4 07/14 1610 Temp 36.8 04/14 1611 Pulse 74 04/14 1611 Resp 18 07/14 1611 Pulse Ox 100 07/14 1248 O2 Delivery Room air 07/13 1626 24 hour I O ending at 0700: 07/14 0700 07/13 1900 Intake Total 200 Output Total Balance 200 Intake, Oral 200 Number Voids 1 PATIENT WEIGHT: Weight (lb): 184 Weight (oz): Weight (kg): 83.461 Subjective Chief complaint: ulceration left Objective General VS: Last Documented: Result Date Time B/P 108/70 07/14 1610 B/P Mean 82.4 07/14 1610 Temp 36.8 07/14 161 Pulse 74 07/14 1611 Resp 18 07/14 1611 Pulse Ox 100 07/14 1248 O2 Delivery Room air 07/13 1626 PATIENT WEIGHT: Weight (lb): 184 Weight (oz): Weight (kg): 83.461 Medications: Active Meds + DC'd Last 24 Hrs Polyethylene Glycol/Electrolytes (GOLYTELY) 4,00 0 ML ONCE ONE PO (UNV) Trazodone HCl (DESYREL) 25 MG BEDTIME PRN PRN PO Nitroglycerin (NITRO-BID) 0.5 INCH DAILY TRANSDE RM Finasteride (PROSCAR) 5 MG DAILY PO Tamsulosin HCl (Flomax 0.4 mg) 0.4 MG BID PO Docusate Sodium (COLACE) 100 MG BID PO Lactulose (LACTULOSE) 20 GM BID PRN PRN PO Doxycycline Monohydrate (DOXYCYCLINE MONOHYDRATE ) 100 MG Q12HR PO Clopidogrel Bisulfate (Plavix) 75 MG BEDTIME PO (DA) Rivaroxaban (XARELTO 20MG) 20 MG DAILY PO (DA) Amlodipine Besylate (NORVASC) 5 MG DAILY PO (DA) Aspirin (ASPIRIN) 81 MG DAILY PO (DA) Losartan Potassium (COZAAR) 100 MG DAILY PO (DC) Metoprolol Tartrate (LOPRESSOR) 25 MG BEDTIME PO Cyanocobalamin (Vitamin B-12 500 mcg tab) 500 MC G DAILY PO Folic Acid (FOLIC ACID) 1 MG DAILY PO Multivitamins (TAB-A-FINESSE) 1 TAB DAILY PO Sterile Water (WATER FOR INJECTION) 1.2 ML ASDIR PRN IV Thiamine HCl (THIAMINE HCL) 100 MG DAILY PO Ziprasidone (GEODON 20MG VIAL) 10 MG Q6H PRN PRN IM Lorazepam (ATIVAN) 1 MG Q6H PRN PRN IV (DC) Sodium Chloride (SODIUM CHLORIDE) 0 ASDIR PRN IV (DC) I O: 24 hour I O ending at 0700: 07/14 0700 07/13 1900 Intake Total 200 Output Total Balance 200 Intake, Oral 200 Number Voids 1 Nutrition assessment: The data set between the solid lines has been im ported from the dietitian's assessment. Any exceptions have been noted under Provider comments. BMI Calculated: 27.4 Nutrition related diagnosis: Nutrition diagnosis details: Nutrition problem: Nutrition etiology: Nutrition signs and symptoms: Nutrition prescription: Dietitian name: Assessment completed: Provider comments on imported dietitian assessme nt: Physical Exam General appearance: awake LE vascular pulse assess: 1+ R posterior tibialis, 1+ L posterior tibialis , 1+ R dorsalis pedis, 1+ L dorsalis pedis Capillary refill: Capillary refill (in seconds): < 3 seconds Right foot, < 3 seconds Left foot Reflexes: Achilles: 2+ Foot: vascular deficit Musculoskeletal: Musculoskeletal: decreased ROM Neuro/HAND COLLATOR: oriented X 3, no motor deficits Skin: ecchymosis (ecchymosis of left foot), dry Ulcer: Location: foot Type: arterial Appearance: necrotic tissue, Ulcerations to the dorsal 4th toe and plantar hallux have dry stable escha r no localized skin or soft tissue infection noted. Drainage: without odor Results Findings/Data: Laboratory Tests: 07/14 0430 Chemistry Sodium (134 - 147 mEq/L) 140 Potassium (3.4 - 5.0 mEq/L) 4.1 Chloride (100 - 108 mEq/L) 109 H Carbon Dioxide (21 - 33 mEq/l) 23 Anion Gap (0 - 20) 12 BUN (7 - 18 mg/dL) 17 Creatinine (0.6 - 1.3 mg/dL) 0.8 Glomerular Filtr Rate (70 - 80) 91.9 H Glucose (70 - 110 mg/dL) 101 Calcium (8.0 - 10.5 mg/dL) 8.3 Hematology WBC (4.5 - 11.0 x10 3/uL) 9.4 RBC (4.00 - 5.60 x10 6/uL) 2.37 L Hgb (12.5 - 16.9 g/dL) 7.3 L Hct (37.5 - 50.7 %) 23.4 L MCV (81.0 - 99.0 fL) 98.7 MCH (27.0 - 33.0 pg) 30.8 MCHC (33.0 - 37.0 g/dL) 31.2 L RDW (11.5 - 14.5 %) 14.3 Plt Count (150 - 400 x10 3/uL) 292 MPV (7.0 - 9.0 fL) 9.9 H Neut % (Auto) (56.0 - 77.0 %) 58.3 Lymph % (Auto) (14.0 - 32.0 %) 28.2 Person % (Auto) (4.8 - 9.0 %) 9.7 H Eos % (Auto) (0.3 - 3.7 %) 2.2 Baso % (Auto) (0.0 - 2.0 %) 0.7 Neut # (Auto) (2.0 - 7.6 x10 3/uL) 5.48 Lymph # (Auto) (1.0 - 3.8 x10 3/uL) 2.65 Person # (Auto) (0.1 - 0.8 x10 3/uL) 0.91 H Eos # (Auto) (0.0 - 0.2 x10 3/uL) 0.21 H Baso # (Auto) (0.0 - 0.2 x10 3/uL) 0.07 Abs Immat Gran (auto) (0.00 - 0.03 x10 3/uL) 0. 08 H Add Manual Diff NO Immature Gran % (0.0 - 2.0 %) 0.9 Nucleated RBC % (0 - 0 %) 0.0 Nucleated RBCs # (Man) (0.0 - 0.1 x10 3/uL) 0.0 0 Results: labs reviewed Diagnosis, Assessment Plan Free Text A P: PAD b/l LE s/p recent revascularization Ulcerations toes 1 and 4 left foot with dry, sta ble eschar Localized edema b/l LE Injury left foot BETADIEN WTD DAILY LEFT FOOT WBAT VASCULAR CONSULT AND EVAL PAIN CONTROL PT/OT WILL FOLLOW Electronically Signed by Karsten Martines DPM on at 1836 RPT #:[id number] END OF REPORT 2021-07-14 17:31:00-00:00 [facility] GE Consultation Note REPORT#:[id number] REPORT STATUS: Signed DATE:07/14/21 TIME: 1731 PATIENT: KAYLYNN MISTRY UNIT #: [id number] ROOM/BED: [place] [id number] : 35 AGE: 85 SEX: M ATTEND: Vinnie Garcia MD ADM AUTHOR: Alfredito Jerez MD * ALL edits or amendments must be made on the [employer]/computer document * History of Present Illness Free Text HPI Notes Free Text HPI Notes: 85 year old man with delirium, noted to have blo od in stool. GI consulted for evaluation. Patient is forgetful, most of the in formation was obtained from chart review and discussion with Daughter Ms. Harry jackson. Patient with with progressive drop in hemoglobin, with FOBT+. No o vert gi bleeding. Daughter reports a prior history of c olon polyps, and progressive fecal incontinence. He used to be on antiplatelet therapy and anticoagu lation therapy, both held in view of his worsening anemia. History - Adult longitudinal Past medical history: Reports: Alcoholism/subst ab use, Atrial fibrillation, Hypertension, BPH, Chronic pain, Periph arterial disease. Additional surgical history: LLE stent 06/29/21 Additional family history: not relavent to current illness Alcohol use: Alcohol use Drug use: Denies recreational drugs Smoking status: Smoking status for patients 13 years old or old er: Current every day smoker Other social history: Visiting locally Additional social history: LIves at home alone in a H. He has walkers he states but does not use it. States that he was driving as PLOF. No stairs t o enter his home. Allergies: Coded Allergies: Iodinated Contrast Media (Intermediate, ALTERED MENTAL STATUS 06/27/21) Objective Physical Exam VS/I O: Last Documented: Result Date Time B/P 108/70 07/14 161 B/P Mean 82.4 07/14 1611 Temp 36.8 07/14 1611 Pulse 74 07/14 1611 Resp 18 07/14 1611 Pulse Ox 100 07/14 1248 O2 Delivery Room air 07/13 162 24 hour I O ending at 0700: 07/14 0700 07/13 1900 Intake Total 200 Output Total Balance 200 Intake, Oral 200 Number Voids 1 PATIENT WEIGHT: Weight (lb): 184 Weight (oz): Weight (kg): 83.461 Medications: Active Meds + DC'd Last 24 Hrs Polyethylene Glycol/Electrolytes (GOLYTELY) 4,0 00 ML ONCE ONE PO (UNV) Trazodone HCl (DESYREL) 25 MG BEDTIME PRN PRN PO Nitroglycerin (NITRO-BID) 0.5 INCH DAILY TRANSDE RM Finasteride (PROSCAR) 5 MG DAILY PO Tamsulosin HCl (Flomax 0.4 mg) 0.4 MG BID PO Docusate Sodium (COLACE) 100 MG BID PO Lactulose (LACTULOSE) 20 GM BID PRN PRN PO Doxycycline Monohydrate (DOXYCYCLINE MONOHYDRATE ) 100 MG Q12HR PO Clopidogrel Bisulfate (Plavix) 75 MG BEDTIME PO (DA) Rivaroxaban (XARELTO 20MG) 20 MG DAILY PO (DA) Amlodipine Besylate (NORVASC) 5 MG DAILY PO (DA) Aspirin (ASPIRIN) 81 MG DAILY PO (DA) Losartan Potassium (COZAAR) 100 MG DAILY PO (DC) Metoprolol Tartrate (LOPRESSOR) 25 MG BEDTIME PO Cyanocobalamin (Vitamin B-12 500 mcg tab) 500 MC G DAILY PO Folic Acid (FOLIC ACID) 1 MG DAILY PO Multivitamins (TAB-A-FINESSE) 1 TAB DAILY PO Sterile Water (WATER FOR INJECTION) 1.2 ML ASDIR PRN IV Thiamine HCl (THIAMINE HCL) 100 MG DAILY PO Ziprasidone (GEODON 20MG VIAL) 10 MG Q6H PRN PRN IM Lorazepam (ATIVAN) 1 MG Q6H PRN PRN IV (DC) Sodium Chloride (SODIUM CHLORIDE) 0 ASDIR PRN IV (DC) General appearance: confused HEENT: abnl conjunctiva/sclera, dry mucosal memb ranes Neck: decreased range of motion Cardiovascular: normal capillary refill, regular rate rhythm Respiratory: aerating well, symmetric expansion Abdomen: non-tender Extremities: decreased range of motion Musculoskeletal: decreased ROM Neuro/HAND COLLATOR: disoriented Skin: abnormal color, abnormal temperature, ecch ymosis Psychiatry: abnl judgment/insight Results Findings/Data: Laboratory Tests 07/14/21429: [Embedded Image Not Available] Laboratory Tests 07/14 429 Chemistry Sodium (134 - 147 mEq/L) 140 Potassium (3.4 - 5.0 mEq/L) 4.1 Chloride (100 - 108 mEq/L) 109 H Carbon Dioxide (21 - 33 mEq/l) 23 Anion Gap (0 - 20) 12 BUN (7 - 18 mg/dL) 17 Creatinine (0.6 - 1.3 mg/dL) 0.8 Glomerular Filtr Rate (70 - 80) 91.9 H Glucose (70 - 110 mg/dL) 101 Calcium (8.0 - 10.5 mg/dL) 8.3 Laboratory Tests 07/14 429 Hematology WBC (4.5 - 11.0 x10 3/uL) 9.4 RBC (4.00 - 5.60 x10 6/uL) 2.37 L Hgb (12.5 - 16.9 g/dL) 7.3 L Hct (37.5 - 50.7 %) 23.4 L MCV (81.0 - 99.0 fL) 98.7 MCH (27.0 - 33.0 pg) 30.8 MCHC (33.0 - 37.0 g/dL) 31.2 L RDW (11.5 - 14.5 %) 14.3 Plt Count (150 - 400 x10 3/uL) 292 MPV (7.0 - 9.0 fL) 9.9 H Neut % (Auto) (56.0 - 77.0 %) 58.3 Lymph % (Auto) (14.0 - 32.0 %) 28.2 Person % (Auto) (4.8 - 9.0 %) 9.7 H Eos % (Auto) (0.3 - 3.7 %) 2.2 Baso % (Auto) (0.0 - 2.0 %) 0.7 Neut # (Auto) (2.0 - 7.6 x10 3/uL) 5.48 Lymph # (Auto) (1.0 - 3.8 x10 3/uL) 2.65 Person # (Auto) (0.1 - 0.8 x10 3/uL) 0.91 H Eos # (Auto) (0.0 - 0.2 x10 3/uL) 0.21 H Baso # (Auto) (0.0 - 0.2 x10 3/uL) 0.07 Abs Immat Gran (auto) (0.00 - 0.03 x10 3/uL) 0. 08 H Add Manual Diff NO Immature Gran % (0.0 - 2.0 %) 0.9 Nucleated RBC % (0 - 0 %) 0.0 Nucleated RBCs # (Man) (0.0 - 0.1 x10 3/uL) 0.0 0 Microbiology Date/Time Procedure - Status Source Growth 07/14 1500 Occult Blood - COMP STOOL Diagnosis, Assessment Plan Free Text DxA P Notes Free Text DxA P Notes: worsening anemia FOBT+ delirium, improved chronic anticoagulation chronic antiplatelet therapy - benefits and risks discussed with daughter who would like to pursue egd/ colonoscopy - monitor h/h, transfuse as needed - hold anticoag/antiplt therapy - clear liquid diet - prep today - egd/colonoscopy tomorrow Electronically Signed by Alfredito Jerez MD on at 0927 RPT #:[id number] END OF REPORT 2021-07-14 16:56:00-00:00 [facility] Cardiology Consultation REPORT#:[id number] REPORT STATUS: Signed DATE:07/14/21 TIME: 1655 PATIENT: KAYLYNN MISTRY UNIT #: [id number] ROOM/BED: [place] [id number] : 35 AGE: 85 SEX: M ATTEND: Vinnie Garcia MD ADM AUTHOR: Katy Jack RESEARCH GEOLOGIST * ALL edits or amendments must be made on the el [employer]/computer document * History of Present Illness HPI Requesting Clinician: Dr. Ortiz Reason for consult: Positive occult blood, on chronic anticoagulatio n for atrial fibrillation Chief complaint: leg pain PCP: PCP: Mamadou Leigh MD HPI: 85 YO male with PMHx of HTN, PAF on chronic anticoagulation, and PAD with prior vascular interventions who is admitted with leg pain and swelling. Today hemoglobin dropped to 7.3 from 8.5. Stoo l is positive for occult blood. GI has been consulted and planning for EGD. Cardiology is consulted to evaluate if anticogulation can be discontinued given anemi a nd possible GI bleed. The patient otherwise is awake a nd alert. He denies any palpitation, chest pain, or shortness of breath. He has been refusing teleme try monitor. History - Adult longitudinal Past medical history: Reports: Alcoholism/subst ab use, Atrial fibrillation, Hypertension, BPH, Chronic pain, Periph arterial disease. Denies: Coronary artery disease. Additional surgical history: LLE stent 06/29/21 Additional family history: not relavent to current illness Alcohol use: Alcohol use Drug use: Denies recreational drugs Smoking status: Smoking status for patients 13 years old or old er: Current every day smoker Other social history: Visiting locally Additional social history: LIves at home alone in a SSH. He has walkers he states but does not use it. States that he was driving as PLOF. No stairs t o enter his home. Allergies: Coded Allergies: Iodinated Contrast Media (Intermediate, ALTERED MENTAL STATUS 06/27/21) Ambulatory status: Walker Review of Systems Additional notes: As stated in HPI Objective General VS/I O: Vital Signs: Date Time Temp Pulse Resp B/P B/P Pulse O2 O2 F low FiO2 Mean Ox Delivery Rate 07/14 1611 36.8 74 18 108/70 82.4 07/14 1248 95 100 07/14 1136 36.7 93 18 105/63 76.5 82 07/14 1005 91 91/63 72.0 07/14 0803 37.0 85 18 99/66 77.1 97 07/14 0539 36.6 85 14 105/62 76.1 98 07/14 0031 36.8 85 14 98/60 72.5 92 07/13 1939 36.8 92 14 109/70 83.0 97 24 hour I O ending at 0700: 07/14 0700 07/13 1900 Intake Total 200 Output Total Balance 200 Intake, Oral 200 Number Voids 1 PATIENT WEIGHT: Weight (lb): 184 Weight (oz): Weight (kg): 83.461 Medications: Active Meds + DC'd Last 24 Hrs Trazodone HCl (DESYREL) 25 MG BEDTIME PRN PRN PO Nitroglycerin (NITRO-BID) 0.5 INCH DAILY TRANSDE RM Finasteride (PROSCAR) 5 MG DAILY PO Tamsulosin HCl (Flomax 0.4 mg) 0.4 MG BID PO Docusate Sodium (COLACE) 100 MG BID PO Lactulose (LACTULOSE) 20 GM BID PRN PRN PO Doxycycline Monohydrate (DOXYCYCLINE MONOHYDRATE ) 100 MG Q12HR PO Clopidogrel Bisulfate (Plavix) 75 MG BEDTIME PO (DA) Rivaroxaban (XARELTO 20MG) 20 MG DAILY PO (DA) Amlodipine Besylate (NORVASC) 5 MG DAILY PO (DA) Aspirin (ASPIRIN) 81 MG DAILY PO (DA) Losartan Potassium (COZAAR) 100 MG DAILY PO (DC) Metoprolol Tartrate (LOPRESSOR) 25 MG BEDTIME PO Cyanocobalamin (Vitamin B-12 500 mcg tab) 500 MC G DAILY PO Folic Acid (FOLIC ACID) 1 MG DAILY PO Multivitamins (TAB-A-FINESSE) 1 TAB DAILY PO Sterile Water (WATER FOR INJECTION) 1.2 ML ASDIR PRN IV Thiamine HCl (THIAMINE HCL) 100 MG DAILY PO Ziprasidone (GEODON 20MG VIAL) 10 MG Q6H PRN PRN IM Lorazepam (ATIVAN) 1 MG Q6H PRN PRN IV (DC) Sodium Chloride (SODIUM CHLORIDE) 0 ASDIR PRN I V (DC) Physical Exam General appearance: alert, awake, no acute distr ess, pleasant, conversational Neck: non-tender, no JVD Cardiovascular: CV assessment: pedal edema (LLE), regular rate and rhythm Murmur assessment: systolic murmur Respiratory: clear to auscultation, no distress Abdomen: soft, non-tender, normal bowel sounds, no distention, no guarding Genitourinary: no flank pain, no urinary cathete r Lower extremity: LE assessment: edema (trace LLE) Musculoskeletal: normal inspection Neuro/HAND COLLATOR: alert, normal speech Skin: dry Ulcer: Type/cause: arterial Duration: chronic Location: foot Laterality: left Stage: 3 Psychiatry: normal affect, normal mood Results Findings/Data: Laboratory Tests 07/14 429 Chemistry Sodium (134 - 147 mEq/L) 140 Potassium (3.4 - 5.0 mEq/L) 4.1 Chloride (100 - 108 mEq/L) 109 H Carbon Dioxide (21 - 33 mEq/l) 23 Anion Gap (0 - 20) 12 BUN (7 - 18 mg/dL) 17 Creatinine (0.6 - 1.3 mg/dL) 0.8 Glomerular Filtr Rate (70 - 80) 91.9 H Glucose (70 - 110 mg/dL) 101 Calcium (8.0 - 10.5 mg/dL) 8.3 Laboratory Tests 07/14 429 Hematology WBC (4.5 - 11.0 x10 3/uL) 9.4 RBC (4.00 - 5.60 x10 6/uL) 2.37 L Hgb (12.5 - 16.9 g/dL) 7.3 L Hct (37.5 - 50.7 %) 23.4 L MCV (81.0 - 99.0 fL) 98.7 MCH (27.0 - 33.0 pg) 30.8 MCHC (33.0 - 37.0 g/dL) 31.2 L RDW (11.5 - 14.5 %) 14.3 Plt Count (150 - 400 x10 3/uL) 292 MPV (7.0 - 9.0 fL) 9.9 H Neut % (Auto) (56.0 - 77.0 %) 58.3 Lymph % (Auto) (14.0 - 32.0 %) 28.2 Person % (Auto) (4.8 - 9.0 %) 9.7 H Eos % (Auto) (0.3 - 3.7 %) 2.2 Baso % (Auto) (0.0 - 2.0 %) 0.7 Neut # (Auto) (2.0 - 7.6 x10 3/uL) 5.48 Lymph # (Auto) (1.0 - 3.8 x10 3/uL) 2.65 Person # (Auto) (0.1 - 0.8 x10 3/uL) 0.91 H Eos # (Auto) (0.0 - 0.2 x10 3/uL) 0.21 H Baso # (Auto) (0.0 - 0.2 x10 3/uL) 0.07 Abs Immat Gran (auto) (0.00 - 0.03 x10 3/uL) 0. 08 H Add Manual Diff NO Immature Gran % (0.0 - 2.0 %) 0.9 Nucleated RBC % (0 - 0 %) 0.0 Nucleated RBCs # (Man) (0.0 - 0.1 x10 3/uL) 0. 00 Microbiology Date/Time Procedure - Status Source Growth 07/14 1500 Occult Blood - COMP STOOL Results: labs reviewed Diagnosis, Assessment Plan Plan discussed with: patient, son, nurse [id number] HAS-BLED [id number] Score [id number] Score Response Value HTN: Yes 1 age greater than 75 years: Yes 2 vascular disease: Yes 1 diabetes mellitus: Yes 1 female: No 0 Total 5 HAS-BLED Score HAS-BLED Score Response Value uncontrolled HTN-SBP>160 No 0 abn renal fxn/creat>=2.6 No 0 abnormal liver function: No 0 age 65 yrs or greater: Yes 1 bleeding: Yes 1 labile INR: No 0 use of drugs w/bleed risk: Antiplatelet/ASA 325 mg 1 excess ETOH:>8drinks/wk Yes 1 Total 4 Free Text DxA P Notes Free Text DxA P Notes: 85 YO male with PMHx of HTN, PAF on chronic anticoagulation, and PAD with prior vascular interventions who is admitted with leg pain and swelling. Today hemoglobin dropped 7.3 from 8.5. Stool is positive for occult blood. GI has been consulted and planning for EGD. Cardiology is co nsulted to evaluate if anticogulation can be discontinued given anemi a nd possible GI bleed. The patient otherwise is awake a nd alert. He denies any palpitation, chest pain, or shortness of breath. He has been refusing teleme try monitor. 1. Paroxysmal atrial fibrillation refusing telemetry hold Xarelto d/t anemia and ?GIB continue BB [id number] score 5 HAS-BLED score 4 would benefit from left atri al appendage occlusion, amulet or watchman. D/w son and they are interested. 2. PAD with prior vascular interventions/foot ul cers Vascular surgery and podiatry onboard 3. Hypertension BP on the hypotenside today BP meds held - resume when approriate 4. Anemia/Positive stool OB GI following planning for upper and lower endoscopy tomorrow Thank you Dr. Ortiz for the kind consultation. at 1807 RPT #:[id number] END OF REPORT 2021-07-14 16:56:00-00:00 [facility] Cardiology Consultation REPORT#:[id number] REPORT STATUS: Signed DATE:07/14/21 TIME: 1656 PATIENT: KAYLYNN MISTRY UNIT #: [id number] ROOM/BED: [place] [id number] : 35 AGE: 85 SEX: M ATTEND: Vinnie Garcia MD ADM AUTHOR: Katy Jack CNP * ALL edits or amendments must be made on the [employer]/computer document * History of Present Illness HPI Requesting Clinician: Dr. Ortiz Reason for consult: Positive occult blood, on chronic anticoagulatio n for atrial fibrillation Chief complaint: leg pain PCP: PCP: Mamadou Leigh MD HPI: 85 YO male with PMHx of HTN, PAF on chronic anticoagulation, and PAD with prior vascular interventions who is admitted with leg pain and swelling. Today hemoglobin dropped to 7.3 from 8.5. Stoo l is positive for occult blood. GI has been consulted and planning for EGD. Cardiology is consulted to evaluate if anticogulation can be discontinued given anemi a nd possible GI bleed. The patient otherwise is awake a nd alert. He denies any palpitation, chest pain, or shortness of breath. He has been refusing teleme try monitor. History - Adult longitudinal Past medical history: Reports: Alcoholism/subst ab use, Atrial fibrillation, Hypertension, BPH, Chronic pain, Periph arterial disease. Denies: Coronary artery disease. Additional surgical history: LLE stent 06/29/21 Additional family history: not relavent to current illness Alcohol use: Alcohol use Drug use: Denies recreational drugs Smoking status: Smoking status for patients 13 years old or old er: Current every day smoker Other social history: Visiting locally Additional social history: LIves at home alone in a H. He has walkers he states but does not use it. States that he was driving as PLOF. No stairs t o enter his home. Allergies: Coded Allergies: Iodinated Contrast Media (Intermediate, ALTERED MENTAL STATUS 06/27/21) Ambulatory status: Walker Review of Systems Additional notes: As stated in HPI Objective General VS/I O: Vital Signs: Date Time Temp Pulse Resp B/P B/P Pulse O2 O2 F low FiO2 Mean Ox Delivery Rate 07/14 1611 36.8 74 18 108/70 82.4 07/14 1248 95 100 07/14 1136 36.7 93 18 105/63 76.5 82 07/14 1005 91 91/63 72.0 07/14 0803 37.0 85 18 99/66 77.1 97 07/14 0539 36.6 85 14 105/62 76.1 98 07/14 0031 36.8 85 14 98/60 72.5 92 07/13 1939 36.8 92 14 109/70 83.0 97 24 hour I O ending at 0700: 07/14 0700 07/13 1900 Intake Total 200 Output Total Balance 200 Intake, Oral 200 Number Voids 1 PATIENT WEIGHT: Weight (lb): 184 Weight (oz): Weight (kg): 83.461 Medications: Active Meds + DC'd Last 24 Hrs Trazodone HCl (DESYREL) 25 MG BEDTIME PRN PRN PO Nitroglycerin (NITRO-BID) 0.5 INCH DAILY TRANSDE RM Finasteride (PROSCAR) 5 MG DAILY PO Tamsulosin HCl (Flomax 0.4 mg) 0.4 MG BID PO Docusate Sodium (COLACE) 100 MG BID PO Lactulose (LACTULOSE) 20 GM BID PRN PRN PO Doxycycline Monohydrate (DOXYCYCLINE MONOHYDRATE ) 100 MG Q12HR PO Clopidogrel Bisulfate (Plavix) 75 MG BEDTIME PO (DA) Rivaroxaban (XARELTO 20MG) 20 MG DAILY PO (DA) Amlodipine Besylate (NORVASC) 5 MG DAILY PO (DA) Aspirin (ASPIRIN) 81 MG DAILY PO (DA) Losartan Potassium (COZAAR) 100 MG DAILY PO (DC) Metoprolol Tartrate (LOPRESSOR) 25 MG BEDTIME PO Cyanocobalamin (Vitamin B-12 500 mcg tab) 500 MC G DAILY PO Folic Acid (FOLIC ACID) 1 MG DAILY PO Multivitamins (TAB-A-FINESSE) 1 TAB DAILY PO Sterile Water (WATER FOR INJECTION) 1.2 ML ASDIR PRN IV Thiamine HCl (THIAMINE HCL) 100 MG DAILY PO Ziprasidone (GEODON 20MG VIAL) 10 MG Q6H PRN PRN IM Lorazepam (ATIVAN) 1 MG Q6H PRN PRN IV (DC) Sodium Chloride (SODIUM CHLORIDE) 0 ASDIR PRN IV (DC) Physical Exam General appearance: alert, awake, no acute distr ess, pleasant, conversational Neck: non-tender, no JVD Cardiovascular: CV assessment: pedal edema (LLE), regular rate and rhythm Murmur assessment: systolic murmur Respiratory: clear to auscultation, no distress Abdomen: soft, non-tender, normal bowel sounds, no distention, no guarding Genitourinary: no flank pain, no urinary cathete r Lower extremity: LE assessment: edema (trace LLE) Musculoskeletal: normal inspection Neuro/HAND COLLATOR: alert, normal speech Skin: dry Ulcer: Type/cause: arterial Duration: chronic Location: foot Laterality: left Stage: 3 Psychiatry: normal affect, normal mood Results Findings/Data: Laboratory Tests 07/14 429 Chemistry Sodium (134 - 147 mEq/L) 140 Potassium (3.4 - 5.0 mEq/L) 4.1 Chloride (100 - 108 mEq/L) 109 H Carbon Dioxide (21 - 33 mEq/l) 23 Anion Gap (0 - 20) 12 BUN (7 - 18 mg/dL) 17 Creatinine (0.6 - 1.3 mg/dL) 0.8 Glomerular Filtr Rate (70 - 80) 91.9 H Glucose (70 - 110 mg/dL) 101 Calcium (8.0 - 10.5 mg/dL) 8.3 Laboratory Tests 07/14 429 Hematology WBC (4.5 - 11.0 x10 3/uL) 9.4 RBC (4.00 - 5.60 x10 6/uL) 2.37 L Hgb (12.5 - 16.9 g/dL) 7.3 L Hct (37.5 - 50.7 %) 23.4 L MCV (81.0 - 99.0 fL) 98.7 MCH (27.0 - 33.0 pg) 30.8 MCHC (33.0 - 37.0 g/dL) 31.2 L RDW (11.5 - 14.5 %) 14.3 Plt Count (150 - 400 x10 3/uL) 292 MPV (7.0 - 9.0 fL) 9.9 H Neut % (Auto) (56.0 - 77.0 %) 58.3 Lymph % (Auto) (14.0 - 32.0 %) 28.2 Person % (Auto) (4.8 - 9.0 %) 9.7 H Eos % (Auto) (0.3 - 3.7 %) 2.2 Baso % (Auto) (0.0 - 2.0 %) 0.7 Neut # (Auto) (2.0 - 7.6 x10 3/uL) 5.48 Lymph # (Auto) (1.0 - 3.8 x10 3/uL) 2.65 Person # (Auto) (0.1 - 0.8 x10 3/uL) 0.91 H Eos # (Auto) (0.0 - 0.2 x10 3/uL) 0.21 H Baso # (Auto) (0.0 - 0.2 x10 3/uL) 0.07 Abs Immat Gran (auto) (0.00 - 0.03 x10 3/uL) 0. 08 H Add Manual Diff NO Immature Gran % (0.0 - 2.0 %) 0.9 Nucleated RBC % (0 - 0 %) 0.0 Nucleated RBCs # (Man) (0.0 - 0.1 x10 3/uL) 0.0 0 Microbiology Date/Time Procedure - Status Source Growth 07/14 1500 Occult Blood - COMP STOOL Results: labs reviewed Diagnosis, Assessment Plan Plan discussed with: patient, son, nurse [id number] HAS-BLED [id number] Score [id number] Score Response Value HTN: Yes 1 age greater than 75 years: Yes 2 vascular disease: Yes 1 diabetes mellitus: Yes 1 female: No 0 Total 5 HAS-BLED Score HAS-BLED Score Response Value uncontrolled HTN-SBP>160 No 0 abn renal fxn/creat>=2.6 No 0 abnormal liver function: No 0 age 65 yrs or greater: Yes 1 bleeding: Yes 1 labile INR: No 0 use of drugs w/bleed risk: Antiplatelet/ASA 325 mg 1 excess ETOH:>8drinks/wk Yes 1 Total 4 Free Text DxA P Notes Free Text DxA P Notes: 85 YO male with PMHx of HTN, PAF on chronic anticoagulation, and PAD with prior vascular interventions who is admitted with leg pain and swelling. Today hemoglobin dropped 7.3 from 8.5. Stool is positive for occult blood. GI has been consulted and planning for EGD. Cardiology is co nsulted to evaluate if anticogulation can be discontinued given anemi a nd possible GI bleed. The patient otherwise is awake a nd alert. He denies any palpitation, chest pain, or shortness of breath. He has been refusing teleme try monitor. 1. Paroxysmal atrial fibrillation refusing telemetry hold Xarelto d/t anemia and ?GIB continue BB [id number] score 5 HAS-BLED score 4 would benefit from left atri al appendage occlusion, amulet or watchman. D/w son and they are interested. 2. PAD with prior vascular interventions/foot ul cers Vascular surgery and podiatry onboard 3. Hypertension BP on the hypotenside today BP meds held - resume when approriate 4. Anemia/Positive stool OB GI following planning for upper and lower endoscopy tomorrow Thank you Dr. Ortiz for the kind consultation. at 1807 Electronically Signed by Anotnina Day MD on at 0752 RPT #:[id number] END OF REPORT 2021-07-14 16:21:00-00:00 [facility] REPORT#:[id number] REPORT STATUS: Signed DATE:07/14/21 TIME: 1621 PATIENT: KAYLYNN MISTRY UNIT #: [id number] ROOM/BED: 5536-1 : 35 AGE: 85 SEX: M ATTEND: Vinnie Garcia MD ADM AUTHOR: Adry Ortiz MD * ALL edits or amendments must be made on the el [employer]/computer document * Subjective Chief complaint: Pt seen and exam'd. Events noted. Following up l eg pain, confusion. Less confusion/ agitation today. Review of Systems Constitutional: Reports: generalized weakness. All systems rev neg: except as marked Objective General VS/I O: Vital Signs: Date Time Temp Pulse Resp B/P B/P Pulse O2 O2 F low FiO2 Mean Ox Delivery Rate 07/14 1611 98.2 74 18 108/70 82.4 07/14 1248 95 100 07/14 1136 98.1 93 18 105/63 76.5 82 07/14 1005 91 91/63 72.0 07/14 0803 98.6 85 18 99/66 77.1 97 07/14 0539 97.9 85 14 105/62 76.1 98 07/14 0031 98.2 85 14 98/60 72.5 92 07/13 1939 98.2 92 14 109/70 83.0 97 24 hour I O ending at 0700: 07/14 0700 07/13 1900 Intake Total 200 Output Total Balance 200 Intake, Oral 200 Number Voids 1 PATIENT WEIGHT: Weight (lb): 184 Weight (oz): Weight (kg): 83.461 Medications: Active Meds + DC'd Last 24 Hrs Nitroglycerin (NITRO-BID) 0.5 INCH DAILY TRANSDE RM Finasteride (PROSCAR) 5 MG DAILY PO Tamsulosin HCl (Flomax 0.4 mg) 0.4 MG BID PO Docusate Sodium (COLACE) 100 MG BID PO Lactulose (LACTULOSE) 20 GM BID PRN PRN PO Doxycycline Monohydrate (DOXYCYCLINE MONOHYDRATE ) 100 MG Q12HR PO Clopidogrel Bisulfate (Plavix) 75 MG BEDTIME PO Rivaroxaban (XARELTO 20MG) 20 MG DAILY PO Amlodipine Besylate (NORVASC) 5 MG DAILY PO Aspirin (ASPIRIN) 81 MG DAILY PO Losartan Potassium (COZAAR) 100 MG DAILY PO Metoprolol Tartrate (LOPRESSOR) 25 MG BEDTIME PO Cyanocobalamin (Vitamin B-12 500 mcg tab) 500 MC G DAILY PO Folic Acid (FOLIC ACID) 1 MG DAILY PO Multivitamins (TAB-A-FINESSE) 1 TAB DAILY PO Sterile Water (WATER FOR INJECTION) 1.2 ML ASDIR PRN IV Thiamine HCl (THIAMINE HCL) 100 MG DAILY PO Ziprasidone (GEODON 20MG VIAL) 10 MG Q6H PRN PRN IM Lorazepam (ATIVAN) 1 MG Q6H PRN PRN IV Sodium Chloride (SODIUM CHLORIDE) 0 ASDIR PRN IV Nutrition assessment: The data set between the solid lines has been im ported from the dietitian's assessment. Any exceptions have been noted under Provider comments. BMI Calculated: 27.4 Nutrition related diagnosis: Nutrition diagnosis details: Nutrition problem: Nutrition etiology: Nutrition signs and symptoms: Nutrition prescription: Dietitian name: Assessment completed: Provider comments on imported dietitian assessme nt: Physical Exam General appearance: alert, awake, oriented Head/Eyes: atraumatic, EOMI, normocephalic, PERR L ENT: moist mucosal membranes Neck: full range of motion, non-tender Cardiovascular: normal heart sounds, regular rat e rhythm Respiratory: aerating well, clear to auscultatio n Abdomen: non-tender, normal bowel sounds, soft, no distention Genitourinary: no bladder distention Extremities: no clubbing, no cyanosis, no edema Skin: no rash Ulcer: Type/cause: arterial Duration: chronic Location: foot Laterality: left Stage: 3 Results Findings/Data: Laboratory Tests 07/14 0430 Chemistry Sodium (134 - 147 mEq/L) 140 Potassium (3.4 - 5.0 mEq/L) 4.1 Chloride (100 - 108 mEq/L) 109 H Carbon Dioxide (21 - 33 mEq/l) 23 Anion Gap (0 - 20) 12 BUN (7 - 18 mg/dL) 17 Creatinine (0.6 - 1.3 mg/dL) 0.8 Glomerular Filtr Rate (70 - 80) 91.9 H Glucose (70 - 110 mg/dL) 101 Calcium (8.0 - 10.5 mg/dL) 8.3 Laboratory Tests 07/14 0430 Hematology WBC (4.5 - 11.0 x10 3/uL) 9.4 RBC (4.00 - 5.60 x10 6/uL) 2.37 L Hgb (12.5 - 16.9 g/dL) 7.3 L Hct (37.5 - 50.7 %) 23.4 L MCV (81.0 - 99.0 fL) 98.7 MCH (27.0 - 33.0 pg) 30.8 MCHC (33.0 - 37.0 g/dL) 31.2 L RDW (11.5 - 14.5 %) 14.3 Plt Count (150 - 400 x10 3/uL) 292 MPV (7.0 - 9.0 fL) 9.9 H Neut % (Auto) (56.0 - 77.0 %) 58.3 Lymph % (Auto) (14.0 - 32.0 %) 28.2 Person % (Auto) (4.8 - 9.0 %) 9.7 H Eos % (Auto) (0.3 - 3.7 %) 2.2 Baso % (Auto) (0.0 - 2.0 %) 0.7 Neut # (Auto) (2.0 - 7.6 x10 3/uL) 5.48 Lymph # (Auto) (1.0 - 3.8 x10 3/uL) 2.65 Person # (Auto) (0.1 - 0.8 x10 3/uL) 0.91 H Eos # (Auto) (0.0 - 0.2 x10 3/uL) 0.21 H Baso # (Auto) (0.0 - 0.2 x10 3/uL) 0.07 Abs Immat Gran (auto) (0.00 - 0.03 x10 3/uL) 0. 08 H Add Manual Diff NO Immature Gran % (0.0 - 2.0 %) 0.9 Nucleated RBC % (0 - 0 %) 0.0 Nucleated RBCs # (Man) (0.0 - 0.1 x10 3/uL) 0.0 0 Microbiology Date/Time Procedure - Status Source Growth 07/14 1500 Occult Blood - COMP STOOL Diagnosis, Assessment Plan Free Text DxA P Notes Free text DxA P notes: 1. Left lower extremity swelling. 2. Peripheral vascular disease. 3. Atrial fibrillation. 4. Foot wounds. 5. Questionable history of syncope. 6. Alcohol use. 7. Benign prostatic hypertrophy. 8. Hypertension. 9. Likely dementia. Improving mentation, continue to monitor. Pain/ discomfort related to reperfusion. Empiric abx. Swelling improving. Continue med tx. Monitor BP/ HR. Foot wound care. Appreciate Psych, Vasc, Pod input. Start PT/OT. CM to assist with dc planning. Urinary symptoms possible related to BPH; Add Av odart and increase Flomax. d/w dtr, all questions answered. 07/13/2021 Patient with left leg swelli ng, peripheral vascular disease, A. fib, foot wounds , BPH, hypertension Mental status much better today He states he feels depressed and misses his who 12 years ago Psych has been consulted PT/OT on board Vitals reviewed acceptable Labs reviewed acceptable Encouraged PT/OT PMNR consulted as patient st ates that he lives at home and wants to return back home when better 07/14/21 doing ok vitals reviewed-some hypotension today stop losartan and amlodipine Labs reviewed-Hb dropped stool OB requested and reported positive GI consulted hold xarelto and asa and plavix cardio consulted for further recommendations patient has 2 daughters, both son in law at bedside today and patient in their presence okaying rehab [facility] consulted PMNR help appreciated CM to help with rehab arrangement, preferable pr ivate bed/not a shared room repeat labs in am Electronically Signed by Adry Ortiz MD on 07/14 at 1638 RPT #:[id number] END OF REPORT 2021-07-14 06:38:00-00:00 [facility] General [facility]ation REPORT#:[id number] REPORT STATUS: Signed DATE:07/14/21 TIME: 637 PATIENT: KAYLYNN MISTRY UNIT #: [id number] ROOM/BED: [id number] : 35 AGE: 85 SEX: M ATTEND: Vinnie Garcia MD ADM AUTHOR: Harish Garcia * ALL edits or amendments must be made on the [employer]/computer document * History of Present Illness Reason for consult: PMR eval Chief complaint: Weakness and impaired mobility HPI: 85 yo male well known to me with past medical history of Alcoholism/subst abuse, Atrial fibrillation, Hypertension, BPH, Chronic pain, and Periph arterial disease s/p recent lower ext remity revascularization for critical limb ischemia and history of chronic venous insufficiency pres ents with swelling and tenderness to his left lower leg with eccymosis andpurple apearance and increased wamth with thin shiny skin. His left f oot has chronic ulcers. Arterial Doppler was negative for hemodynamicall y significant stenosis in the right lower extremity. Podiatry was consulted fo r foot wounds. Patient was started on antibiotics. We were asked to see idania hairston in consultation for physical medicine and rehabilitation evaluation due to decline in function History - Adult longitudinal Past medical history: Reports: Alcoholism/subst ab use, Atrial fibrillation, Hypertension, BPH, Chronic pain, Periph arterial disease. Additional surgical history: LLE stent 06/29/21 Additional family history: not relavent to current illness Alcohol use: Alcohol use Drug use: Denies recreational drugs Smoking status: Smoking status for patients 13 years old or old er: Current every day smoker Other social history: Visiting locally Additional social history: LIves at home alone in a H. He has walkers he states but does not use it. States that he was driving as PLOF. No stairs t o enter his home. Medications: Home Medications: Medication Dose/Rte/Freq Days Qty Entered Last Max Daily Dose Reviewed RIVAROXABAN (XARELTO) 20 MG PO BEDTIME 04/13/21 Strength: 20 MG TAB 0516 TAMSULOSIN ER (FLOMAX) 0.4 MG PO BEDTIME Strength: 0.4 MG CAP.SR.24H 0517 ASPIRIN EC (ECOTRIN) 81 MG PO BEDTIME 06/27/21 Strength: 81 MG TAB.EC 0845 DOXYCYCLINE 100 MG PO Q12H 07/09/21 07/09/21 MONOHYDRATE 0053 0054 (ADOXA) Strength: 100 MG TAB LOSARTAN (COZAAR) 100 MG PO DAILY 04/13/21 04/0 12/22 Strength: 100 MG TAB 0516 0048 METOPROLOL TARTRATE 25 MG PO BEDTIME 06/27/21 0 07/09/21 (LOPRESSOR) 0844 0050 Strength: 25 MG TAB amLODIPine (NORVASC) 5 MG PO DAILY 30 04/27/21 07/09/21 Strength: 2.5 MG TAB 1202 0051 CLOPIDOGREL (PLAVIX) 75 MG PO DAILY 30 06/29/21 07/09/21 Strength: 75 MG TAB 1353 0051 Current Hospital Medications: Anti-Infective Agents Sig/Tate Start time Last Medication Dose Route Stop Time Status Admin Doxycycline 100 MG Q12HR 07/11 1515 AC 07/13 Monohydrate PO 07/18 (DOXYCYCLINE MONOHYDRATE) Autonomic Drugs Sig/Tate Start time Last Medication Dose Route Stop Time Status Admin Tamsulosin HCl 0.4 MG BID 07/12 2099 AC 07/13 (Flomax 0.4 mg) PO 08/11 Blood Formation,Coagulation Sig/Tate Start time Last Medication Dose Route Stop Time Status Admin Clopidogrel Bisulfate 75 MG BEDTIME 07/11 39 AC 07/13 (Plavix) PO 08/09 Rivaroxaban 20 MG DAILY 07/11 39 AC 07/13 (XARELTO 20MG) PO 08/09 38 0951 Cardiovascular Drugs Sig/Tate Start time Last Medication Dose Route Stop Time Status Admin Amlodipine Besylate 5 MG DAILY 07/09 2129 AC (NORVASC) PO 08/09 2127 08 Losartan Potassium 100 MG DAILY 07/09 2129 AC 07/11 (COZAAR) PO 08/09 2127 0856 Metoprolol Tartrate 25 MG BEDTIME 07/09 2099 AC 07/13 (LOPRESSOR) PO 08/08 Central Nervous System Agents Sig/Tate Start time Last Medication Dose Route Stop Time Status Admin Aspirin 81 MG DAILY 07/09 2129 AC 07/13 (ASPIRIN) PO 08/09 2127 0951 Ziprasidone 10 MG Q6H PRN PRN 07/09 1530 AC (GEODON 20MG VIAL) IM 08/08 1529 1631 Lorazepam 1 MG Q6H PRN PRN 07/09 1030 AC 07/09 (ATIVAN) IV 08/08 1028 2118 Electrolytic, Caloric, And Mirella Sig/Tate Start time Last Medication Dose Route Stop Time Status Admin Lactulose 20 GM BID PRN PRN 07/11 1530 AC 07/11 (LACTULOSE) PO 08/10 1529 1820 Sodium Chloride 0 ASDIR PRN 07/09 1030 AC (SODIUM CHLORIDE) IV 08/08 1029 Gastrointestinal Drugs Sig/Tate Start time Last Medication Dose Route Stop Time Status Admin Docusate Sodium 100 MG BID 07/11 2100 AC 07/13 (COLACE) PO 08/10 Miscellaneous Therapeutic Agen Sig/Tate Start time Last Medication Dose Route Stop Time Status Admin Finasteride 5 MG DAILY 07/13 0900 AC 07/13 (PROSCAR) PO 08/12 0859 0951 Pharmaceutical Aids Sig/Tate Start time Last Medication Dose Route Stop Time Status Admin Sterile Water 1.2 ML ASDIR PRN 07/09 1530 AC (WATER FOR INJECTION) IV 08/08 1529 Vitamins Sig/Tate Start time Last Medication Dose Route Stop Time Status Admin Cyanocobalamin 500 MCG DAILY 07/09 1530 AC 07/01 3 (Vitamin B-12 500 PO 08/08 152 0952 mcg tab) Folic Acid 1 MG DAILY 07/09 1530 AC 07/13 (FOLIC ACID) PO 08/08 152 0951 Multivitamins 1 TAB DAILY 07/09 1530 AC 07/13 (TAB-A-FINESSE) PO 08/08 152 0951 Thiamine HCl 100 MG DAILY 07/09 153 AC 07/13 (THIAMINE HCL) PO 08/08 1529 0951 Allergies: Coded Allergies: Iodinated Contrast Media (Intermediate, ALTERED MENTAL STATUS 06/27/21) Review of Systems Constitutional: generalized weakness. Musculoskeletal: extremity pain, extremity swelling. All systems rev neg: except as marked Objective VS/I O: Last Documented: Result Date Time Pulse Ox 98 07/14 538 B/P 105/62 07/14 538 B/P Mean 76.1 07/14 538 Temp 97.9 07/14 0439 Pulse 85 07/14 0539 Resp 14 07/14 538 O2 Delivery Room air 07/13 162 24 hour I O ending at 0700: 07/14 0700 07/13 1900 Intake Total 200 Output Total Balance 200 Intake, Oral 200 Number Voids 1 PATIENT WEIGHT: Weight (lb): 184 Weight (oz): Weight (kg): 83.461 General appearance: alert, awake, oriented Head/Eyes: atraumatic, clear cornea, EOMI ENT: normal dentition, normal ear left, normal e ar right, normal nose Neck: full range of motion, non-tender, no lymph adenopathy Cardiovascular: normal capillary refill, pedal p ulses present, regular rate rhythm Respiratory: aerating well, symmetric expansion, clear to auscultation Abdomen: soft, non-tender, no guarding Genitourinary: not indicated Extremities: moves all, no clubbing Musculoskeletal: normal inspection, no muscle sp asm Neuro/HAND COLLATOR: alert, oriented X 3, CNII-XII grossly intact Skin: ecchymosis (L foot), necrotic ulcerations to 4th toe and plantar hallux Lymphatics: no lymphadenopathy Psychiatry: normal affect, normal judgment/insig ht Results Findings/Data: Laboratory Tests 07/13 07/12 0350 0455 Chemistry Sodium (134 - 147 mEq/L) 139 140 Potassium (3.4 - 5.0 mEq/L) 3.7 4.0 Chloride (100 - 108 mEq/L) 108 110 H Carbon Dioxide (21 - 33 mEq/l) 24 23 Anion Gap (0 - 20) 10 11 BUN (7 - 18 mg/dL) 18 16 Creatinine (0.6 - 1.3 mg/dL) 0.9 0.8 Glomerular Filtr Rate (70 - 80) 80.2 H 91.9 H Glucose (70 - 110 mg/dL) 95 110 Calcium (8.0 - 10.5 mg/dL) 8.6 8.3 Laboratory Tests 07/13 07/12 0350 0455 Hematology WBC (4.5 - 11.0 x10 3/uL) 9.8 10.6 RBC (4.00 - 5.60 x10 6/uL) 2.77 L 2.74 L Hgb (12.5 - 16.9 g/dL) 8.5 L 8.5 L Hct (37.5 - 50.7 %) 27.5 L 26.9 L MCV (81.0 - 99.0 fL) 99.3 H 98.2 MCH (27.0 - 33.0 pg) 30.7 31.0 MCHC (33.0 - 37.0 g/dL) 30.9 L 31.6 L RDW (11.5 - 14.5 %) 14.1 14.1 Plt Count (150 - 400 x10 3/uL) 314 287 MPV (7.0 - 9.0 fL) 9.9 H 9.6 H Neut % (Auto) (56.0 - 77.0 %) 58.8 67.9 Lymph % (Auto) (14.0 - 32.0 %) 28.0 19.3 Person % (Auto) (4.8 - 9.0 %) 9.4 H 9.0 Eos % (Auto) (0.3 - 3.7 %) 2.4 2.4 Baso % (Auto) (0.0 - 2.0 %) 0.6 0.6 Neut # (Auto) (2.0 - 7.6 x10 3/uL) 5.78 7.20 Lymph # (Auto) (1.0 - 3.8 x10 3/uL) 2.75 2.04 Person # (Auto) (0.1 - 0.8 x10 3/uL) 0.92 H 0.95 H Eos # (Auto) (0.0 - 0.2 x10 3/uL) 0.24 H 0.25 H Baso # (Auto) (0.0 - 0.2 x10 3/uL) 0.06 0.06 Abs Immat Gran (auto) (0.00 - 0.03 x10 3/uL) 0. 08 H 0.09 H Add Manual Diff NO NO Immature Gran % (0.0 - 2.0 %) 0.8 0.8 Nucleated RBC % (0 - 0 %) 0.0 0.0 Nucleated RBCs # (Man) (0.0 - 0.1 x10 3/uL) 0.0 0 0.00 Diagnosis, Assessment Plan Free Text DxA P Notes Free Text DxA P Notes: Generalized weakness Impaired mobility and gait Anemia PAD Ulcerations toes 1 and 4 left foot Hypertension Atrial fibrillation Alcohol use Plan: Continue PT/OT Out of bed to chair Work on strength, bed mobility, transfers, gait Increase endurance Fall precautions Monitor p.o. intake and nutrition Strict decubitus precautions Continue wound care and antibiotics Psych on case Advance therapies as tolerated Thank you for referral Electronically Signed by Harish Garcia on 0 07/14/21 at 1557 RPT #:[id number] END OF REPORT 2021-07-13 23:45:00-00:00 [facility] Note REPORT#:[id number] REPORT STATUS: Signed DATE:07/13/21 TIME: 2344 PATIENT: KAYLYNN MISTRY UNIT #: [id number] ROOM/BED: 5536-1 : 35 AGE: 85 SEX: M ATTEND: Vinnie Garcia MD ADM AUTHOR: Karsten Martines DPM * ALL edits or amendments must be made on the [employer] document * General VS/I O: Last Documented: Result Date Time Pulse Ox 97 07/13 1938 B/P 109/70 07/13 1938 B/P Mean 83.0 07/13 1938 Temp 36.8 07/13 1938 Pulse 92 07/13 1938 Resp 07/13 O2 Delivery Room air 07/13 1626 24 hour I O ending at 0700: 07/13 0700 07/12 1900 Intake Total 500 100 Output Total 300 Balance 200 100 Intake, Oral 500 100 Output, Urine 300 Patient 83.461 kg Weight PATIENT WEIGHT: Weight (lb): 184 Weight (oz): Weight (kg): 83.461 Objective General VS: Last Documented: Result Date Time Pulse Ox 97 07/13 1938 B/P 109/70 07/13 1938 B/P Mean 83.0 07/13 1938 Temp 36.8 07/13 1938 Pulse 92 07/13 1938 Resp 07/13 O2 Delivery Room air 07/13 1626 PATIENT WEIGHT: Weight (lb): 184 Weight (oz): Weight (kg): 83.461 Medications: Active Meds + DC'd Last 24 Hrs Finasteride (PROSCAR) 5 MG DAILY PO Tamsulosin HCl (Flomax 0.4 mg) 0.4 MG BID PO Docusate Sodium (COLACE) 100 MG BID PO Lactulose (LACTULOSE) 20 GM BID PRN PRN PO Doxycycline Monohydrate (DOXYCYCLINE MONOHYDRATE ) 100 MG Q12HR PO Clopidogrel Bisulfate (Plavix) 75 MG BEDTIME PO Rivaroxaban (XARELTO 20MG) 20 MG DAILY PO Amlodipine Besylate (NORVASC) 5 MG DAILY PO Aspirin (ASPIRIN) 81 MG DAILY PO Losartan Potassium (COZAAR) 100 MG DAILY PO Metoprolol Tartrate (LOPRESSOR) 25 MG BEDTIME PO Cyanocobalamin (Vitamin B-12 500 mcg tab) 500 MC G DAILY PO Folic Acid (FOLIC ACID) 1 MG DAILY PO Multivitamins (TAB-A-FINESSE) 1 TAB DAILY PO Sterile Water (WATER FOR INJECTION) 1.2 ML ASDIR PRN IV Thiamine HCl (THIAMINE HCL) 100 MG DAILY PO Ziprasidone (GEODON 20MG VIAL) 10 MG Q6H PRN PRN IM Lorazepam (ATIVAN) 1 MG Q6H PRN PRN IV Sodium Chloride (SODIUM CHLORIDE) 0 ASDIR PRN IV I O: 24 hour I O ending at 0700: 07/13 0700 07/12 1900 Intake Total 500 100 Output Total 300 Balance 200 100 Intake, Oral 500 100 Output, Urine 300 Patient 83.461 kg Weight Nutrition assessment: The data set between the solid lines has been im ported from the dietitian's assessment. Any exceptions have been noted under Provider comments. BMI Calculated: 27.4 Nutrition related diagnosis: Nutrition diagnosis details: Nutrition problem: Nutrition etiology: Nutrition signs and symptoms: Nutrition prescription: Dietitian name: Assessment completed: Provider comments on imported dietitian assessme nt: Physical Exam General appearance: awake LE vascular pulse assess: 1+ R posterior tibialis, 1+ L posterior tibialis , 1+ R dorsalis pedis, 1+ L dorsalis pedis Capillary refill: Capillary refill (in seconds): < 3 seconds Right foot, < 3 seconds Left foot Reflexes: Achilles: 2+ Foot: vascular deficit Musculoskeletal: Musculoskeletal: decreased ROM Neuro/HAND COLLATOR: oriented X 3, no motor deficits Skin: ecchymosis (ecchymosis of left foot), dry Ulcer: Location: foot Type: arterial Appearance: necrotic tissue, Ulcerations to the dorsal 4th toe and plantar hallux have dry stable escha r no localized skin or soft tissue infection noted. Drainage: without odor Results Findings/Data: Laboratory Tests: 07/13 0350 Chemistry Sodium (134 - 147 mEq/L) 139 Potassium (3.4 - 5.0 mEq/L) 3.7 Chloride (100 - 108 mEq/L) 108 Carbon Dioxide (21 - 33 mEq/l) 24 Anion Gap (0 - 20) 10 BUN (7 - 18 mg/dL) 18 Creatinine (0.6 - 1.3 mg/dL) 0.9 Glomerular Filtr Rate (70 - 80) 80.2 H Glucose (70 - 110 mg/dL) 95 Calcium (8.0 - 10.5 mg/dL) 8.6 Hematology WBC (4.5 - 11.0 x10 3/uL) 9.8 RBC (4.00 - 5.60 x10 6/uL) 2.77 L Hgb (12.5 - 16.9 g/dL) 8.5 L Hct (37.5 - 50.7 %) 27.5 L MCV (81.0 - 99.0 fL) 99.3 H MCH (27.0 - 33.0 pg) 30.7 MCHC (33.0 - 37.0 g/dL) 30.9 L RDW (11.5 - 14.5 %) 14.1 Plt Count (150 - 400 x10 3/uL) 314 MPV (7.0 - 9.0 fL) 9.9 H Neut % (Auto) (56.0 - 77.0 %) 58.8 Lymph % (Auto) (14.0 - 32.0 %) 28.0 Person % (Auto) (4.8 - 9.0 %) 9.4 H Eos % (Auto) (0.3 - 3.7 %) 2.4 Baso % (Auto) (0.0 - 2.0 %) 0.6 Neut # (Auto) (2.0 - 7.6 x10 3/uL) 5.78 Lymph # (Auto) (1.0 - 3.8 x10 3/uL) 2.75 Person # (Auto) (0.1 - 0.8 x10 3/uL) 0.92 H Eos # (Auto) (0.0 - 0.2 x10 3/uL) 0.24 H Baso # (Auto) (0.0 - 0.2 x10 3/uL) 0.06 Abs Immat Gran (auto) (0.00 - 0.03 x10 3/uL) 0. 08 H Add Manual Diff NO Immature Gran % (0.0 - 2.0 %) 0.8 Nucleated RBC % (0 - 0 %) 0.0 Nucleated RBCs # (Man) (0.0 - 0.1 x10 3/uL) 0.0 0 Results: labs reviewed Diagnosis, Assessment Plan Free Text A P: PAD b/l LE s/p recent revascularization Ulcerations toes 1 and 4 left foot with dry, sta ble eschar Localized edema b/l LE Injury left foot Recommend iodine dressing changes to ulcerations left foot to keep the eschar dry and stable. Recommend x-rays left foot Recommend Prevalon boots Cardiovascular team already saw patient, ordered repeat arterial doppler b/l LE Will continue to follow the patient Thank you for consultations Electronically Signed by Karsten Martines DPM on at 1835 RPT #:[id number] END OF REPORT 2021-07-13 11:09:00-00:00 [facility] Progress Note REPORT#:[id number] REPORT STATUS: Signed DATE:07/13/21 TIME: 1109 PATIENT: KAYLYNN MISTRY UNIT #: [id number] ROOM/BED: [place] [id number] : 35 AGE: 85 SEX: M ATTEND: Vinnie Garcia MD ADM AUTHOR: Adry Ortiz MD * ALL edits or amendments must be made on the [employer]/computer document * Subjective Chief complaint: Pt seen and exam'd. Events noted. Following up l eg pain, confusion. Less confusion/ agitation today. Review of Systems Constitutional: Reports: generalized weakness. All systems rev neg: except as marked Objective General VS/I O: Vital Signs: Date Time Temp Pulse Resp B/P B/P Pulse O2 O2 Flow FiO2 Mean Ox Delivery Rate 07/13 1627 98.6 82 15 96/60 72.2 98 Room air 07/13 0842 97.9 92 15 91/58 69.1 98 Room air 07/13 0406 97.7 76 16 94/70 77.7 07/13 0026 98.1 94 16 105/68 80.6 95 Room air 07/12 2029 98.4 93 16 97/67 77.0 95 Room air 07/12 1721 98.4 80 17 98/57 70.8 96 Room air 24 hour I O ending at 0700: 07/13 0700 07/12 1900 Intake Total 500 100 Output Total 300 Balance 200 100 Intake, Oral 500 100 Output, Urine 300 Patient 83.461 kg Weight PATIENT WEIGHT: Weight (lb): 184 Weight (oz): Weight (kg): 83.461 Medications: Active Meds + DC'd Last 24 Hrs Finasteride (PROSCAR) 5 MG DAILY PO Tamsulosin HCl (Flomax 0.4 mg) 0.4 MG BID PO Docusate Sodium (COLACE) 100 MG BID PO Lactulose (LACTULOSE) 20 GM BID PRN PRN PO Doxycycline Monohydrate (DOXYCYCLINE MONOHYDRATE ) 100 MG Q12HR PO Tamsulosin HCl (Flomax 0.4 mg) 0.4 MG DAILY PO ( DC) Clopidogrel Bisulfate (Plavix) 75 MG BEDTIME PO Rivaroxaban (XARELTO 20MG) 20 MG DAILY PO Amlodipine Besylate (NORVASC) 5 MG DAILY PO Aspirin (ASPIRIN) 81 MG DAILY PO Losartan Potassium (COZAAR) 100 MG DAILY PO Metoprolol Tartrate (LOPRESSOR) 25 MG BEDTIME PO Cyanocobalamin (Vitamin B-12 500 mcg tab) 500 MC G DAILY PO Folic Acid (FOLIC ACID) 1 MG DAILY PO Multivitamins (TAB-A-FINESSE) 1 TAB DAILY PO Sterile Water (WATER FOR INJECTION) 1.2 ML ASDIR PRN IV Thiamine HCl (THIAMINE HCL) 100 MG DAILY PO Ziprasidone (GEODON 20MG VIAL) 10 MG Q6H PRN PRN IM Lorazepam (ATIVAN) 1 MG Q6H PRN PRN IV Sodium Chloride (SODIUM CHLORIDE) 0 ASDIR PRN IV Nutrition assessment: The data set between the solid lines has been im ported from the dietitian's assessment. Any exceptions have been noted under Provider comments. BMI Calculated: 27.4 Nutrition related diagnosis: Nutrition diagnosis details: Nutrition problem: Nutrition etiology: Nutrition signs and symptoms: Nutrition prescription: Dietitian name: Assessment completed: Provider comments on imported dietitian assessme nt: Physical Exam General appearance: alert, awake, oriented Head/Eyes: atraumatic, EOMI, normocephalic, PERR L ENT: moist mucosal membranes Neck: full range of motion, non-tender Cardiovascular: normal heart sounds, regular rat e rhythm Respiratory: aerating well, clear to auscultatio n Abdomen: non-tender, normal bowel sounds, soft, no distention Genitourinary: no bladder distention Extremities: no clubbing, no cyanosis, no edema Skin: no rash Ulcer: Type/cause: arterial Duration: chronic Location: foot Laterality: left Stage: 3 Results Findings/Data: Laboratory Tests 07/13 349 Chemistry Sodium (134 - 147 mEq/L) 139 Potassium (3.4 - 5.0 mEq/L) 3.7 Chloride (100 - 108 mEq/L) 108 Carbon Dioxide (21 - 33 mEq/l) 24 Anion Gap (0 - 20) 10 BUN (7 - 18 mg/dL) 18 Creatinine (0.6 - 1.3 mg/dL) 0.9 Glomerular Filtr Rate (70 - 80) 80.2 H Glucose (70 - 110 mg/dL) 95 Calcium (8.0 - 10.5 mg/dL) 8.6 Laboratory Tests 07/13 349 Hematology WBC (4.5 - 11.0 x10 3/uL) 9.8 RBC (4.00 - 5.60 x10 6/uL) 2.77 L Hgb (12.5 - 16.9 g/dL) 8.5 L Hct (37.5 - 50.7 %) 27.5 L MCV (81.0 - 99.0 fL) 99.3 H MCH (27.0 - 33.0 pg) 30.7 MCHC (33.0 - 37.0 g/dL) 30.9 L RDW (11.5 - 14.5 %) 14.1 Plt Count (150 - 400 x10 3/uL) 314 MPV (7.0 - 9.0 fL) 9.9 H Neut % (Auto) (56.0 - 77.0 %) 58.8 Lymph % (Auto) (14.0 - 32.0 %) 28.0 Person % (Auto) (4.8 - 9.0 %) 9.4 H Eos % (Auto) (0.3 - 3.7 %) 2.4 Baso % (Auto) (0.0 - 2.0 %) 0.6 Neut # (Auto) (2.0 - 7.6 x10 3/uL) 5.78 Lymph # (Auto) (1.0 - 3.8 x10 3/uL) 2.75 Person # (Auto) (0.1 - 0.8 x10 3/uL) 0.92 H Eos # (Auto) (0.0 - 0.2 x10 3/uL) 0.24 H Baso # (Auto) (0.0 - 0.2 x10 3/uL) 0.06 Abs Immat Gran (auto) (0.00 - 0.03 x10 3/uL) 0. 08 H Add Manual Diff NO Immature Gran % (0.0 - 2.0 %) 0.8 Nucleated RBC % (0 - 0 %) 0.0 Nucleated RBCs # (Man) (0.0 - 0.1 x10 3/uL) 0.0 0 Diagnosis, Assessment Plan Free Text DxA P Notes Free text DxA P notes: 1. Left lower extremity swelling. 2. Peripheral vascular disease. 3. Atrial fibrillation. 4. Foot wounds. 5. Questionable history of syncope. 6. Alcohol use. 7. Benign prostatic hypertrophy. 8. Hypertension. 9. Likely dementia. Improving mentation, continue to monitor. Pain/ discomfort related to reperfusion. Empiric abx. Swelling improving. Continue med tx. Monitor BP/ HR. Foot wound care. Appreciate Psych, Vasc, Pod input. Start PT/OT. CM to assist with dc planning. Urinary symptoms possible related to BPH; Add Av odart and increase Flomax. d/w dtr, all questions answered. 07/13/2021 Patient with left leg swelli ng, peripheral vascular disease, A. fib, foot wounds , BPH, hypertension Mental status much better today He states he feels depressed and misses his who 12 years ago Psych has been consulted PT/OT on board Vitals reviewed acceptable Labs reviewed acceptable Encouraged PT/OT PMNR consulted as patient ates that he lives at home and wants to return back home when better Electronically Signed by Adry Ortiz MD on 07/13 at 1712 RPT #:[id number] END OF REPORT 2021-07-12 19:51:00-00:00 [facility] Hospitalist Progress Note REPORT#:[id number] REPORT STATUS: Signed DATE:07/12/21 TIME: 1950 PATIENT: KAYLYNN MISTRY UNIT #: [id number] ROOM/BED: [place] [address] : 35 AGE: 85 SEX: M ATTEND: Vinnie Garcia MD ADM AUTHOR: Santiago Garcia MD * ALL edits or amendments must be made on the el [employer]/computer document * Subjective Chief complaint: Pt seen and exam'd. Events noted. Following up l eg pain, confusion. Less confusion/ agitation today. Review of Systems All systems rev neg: except as marked Objective General VS/I O: Vital Signs: Date Time Temp Pulse Resp B/P B/P Pulse O2 O2 F low FiO2 Mean Ox Delivery Rate 07/12 1721 36.9 80 17 98/57 70.8 96 Room air 07/12 1149 36.4 55 17 92/58 69.1 07/12 0909 63 17 107/72 84.1 07/12 0747 36.6 74 17 84/46 58.8 96 Room air 07/12 0507 36.5 82 16 112/65 80.3 98 Room air 07/12 0016 36.6 97 16 103/77 86.0 100 Room air 07/11 2108 36.5 80 18 103/65 77.7 92 Room air 24 hour I O ending at 0700: 07/12 0700 07/11 1900 Intake Total 295 Output Total Balance 295 Intake, Oral 295 Number 2 Bowel Movements Number 2 Incontinent Voids PATIENT WEIGHT: Weight (lb): 184 Weight (oz): Weight (kg): 83.461 Medications: Active Meds + DC'd Last 24 Hrs Finasteride (PROSCAR) 5 MG DAILY PO Tamsulosin HCl (Flomax 0.4 mg) 0.4 MG BID PO Docusate Sodium (COLACE) 100 MG BID PO Lactulose (LACTULOSE) 20 GM BID PRN PRN PO Doxycycline Monohydrate (DOXYCYCLINE MONOHYDRATE ) 100 MG Q12HR PO Tamsulosin HCl (Flomax 0.4 mg) 0.4 MG DAILY PO ( DC) Clopidogrel Bisulfate (Plavix) 75 MG BEDTIME PO Rivaroxaban (XARELTO 20MG) 20 MG DAILY PO Amlodipine Besylate (NORVASC) 5 MG DAILY PO Aspirin (ASPIRIN) 81 MG DAILY PO Losartan Potassium (COZAAR) 100 MG DAILY PO Metoprolol Tartrate (LOPRESSOR) 25 MG BEDTIME PO Cyanocobalamin (Vitamin B-12 500 mcg tab) 500 MC G DAILY PO Folic Acid (FOLIC ACID) 1 MG DAILY PO Multivitamins (TAB-A-FINESSE) 1 TAB DAILY PO Sterile Water (WATER FOR INJECTION) 1.2 ML ASDIR PRN IV Thiamine HCl (THIAMINE HCL) 100 MG DAILY PO Ziprasidone (GEODON 20MG VIAL) 10 MG Q6H PRN PRN IM Lorazepam (ATIVAN) 1 MG Q6H PRN PRN IV Sodium Chloride (SODIUM CHLORIDE) 0 ASDIR PRN IV Physical Exam General appearance: no acute distress, no respir atory distress Head/Eyes: atraumatic, EOMI, normocephalic, PERR L ENT: moist mucosal membranes Neck: full range of motion, non-tender Cardiovascular: normal heart sounds, regular rat e rhythm Respiratory: aerating well, clear to auscultatio n Abdomen: non-tender, normal bowel sounds, soft, no distention Extremities: no clubbing, no cyanosis, no edema Skin: no rash Ulcer: Type/cause: arterial Duration: chronic Location: foot Laterality: left Stage: 3 Diagnosis, Assessment Plan Free Text DxA P Notes Free text DxA P notes: 1. Left lower extremity swelling. 2. Peripheral vascular disease. 3. Atrial fibrillation. 4. Foot wounds. 5. Questionable history of syncope. 6. Alcohol use. 7. Benign prostatic hypertrophy. 8. Hypertension. 9. Likely dementia. Improving mentation, continue to monitor. Pain/ discomfort related to reperfusion. Empiric abx. Swelling improving. Continue med tx. Monitor BP/ HR. Foot wound care. Appreciate Psych, Vasc, Pod input. Start PT/OT. CM to assist with dc planning. Urinary symptoms possible related to BPH; Add Av odart and increase Flomax. d/w dtr, all questions answered. Electronically Signed by Santiago Garcia MD on at 1953 RPT #:[id number] END OF REPORT 2021-07-12 11:13[facility]00[facility] REPORT#:[id number] REPORT STATUS: Signed DATE:07/12/21 TIME: 1113 PATIENT: KAYLYNN MISTRY UNIT #: [id number] ROOM/BED: [place] [address] : 35 AGE: 85 SEX: M ATTEND: Vinnie Garcia MD ADM AUTHOR: Karsten Martines DPM * ALL edits or amendments must be made on the [employer]/computer document * General VS/I O: Last Documented: Result Date Time B/P 107/72 07/12 908 B/P Mean 84.1 07/12 0909 Pulse 63 07/12 0909 Resp 17 07/12 0909 Pulse Ox 96 07/12 0747 O2 Delivery Room air 07/12 0747 Temp 36.6 07/12 0747 24 hour I O ending at 0700: 07/12 0700 07/11 1900 Intake Total 295 Output Total Balance 295 Intake, Oral 295 Number 2 Bowel Movements Number 2 Incontinent Voids PATIENT WEIGHT: Weight (lb): Weight (oz): Weight (kg): 84.091 Objective Physical Exam LE vascular pulse assess: 1+ R posterior tibialis, 1+ L posterior tibialis , 1+ R dorsalis pedis, 1+ L dorsalis pedis Capillary refill: Capillary refill (in seconds): < 3 seconds Right foot, < 3 seconds Left foot Reflexes: Achilles: 2+ Foot: vascular deficit Musculoskeletal: Musculoskeletal: decreased ROM Neuro/HAND COLLATOR: oriented X 3, no motor deficits Skin: ecchymosis (ecchymosis of left foot), dry Ulcer: Location: foot Type: arterial Appearance: necrotic tissue, Ulcerations to the dorsal 4th toe and plantar hallux have dry stable escha r no localized skin or soft tissue infection noted. Drainage: without odor Diagnosis, Assessment Plan Free Text A P: PAD b/l LE s/p recent revascularization Ulcerations toes 1 and 4 left foot with dry, sta ble eschar Localized edema b/l LE Injury left foot Recommend iodine dressing changes to ulcerations left foot to keep the eschar dry and stable. Recommend x-rays left foot Recommend Prevalon boots Cardiovascular team already saw patient, ordered repeat arterial doppler b/l LE Will continue to follow the patient Thank you for consultations Electronically Signed by Karsten Martines DPM on at 1835 RPT #:[id number] END OF REPORT 2021-07-11 20:39:00-00:00 [facility] Hospitalist Progress Note REPORT#:[id number] REPORT STATUS: Signed DATE:07/11/21 TIME: 2038 PATIENT: KAYLYNN MISTRY UNIT #: [id number] ROOM/BED: [place] [address] : 35 AGE: 85 SEX: M ATTEND: Vinnie Garcia MD ADM AUTHOR: Santiago Garcia MD * ALL edits or amendments must be made on the el [employer]/computer document * Subjective Chief complaint: Pt seen and exam'd. Events noted. Following up l eg pain, confusion. Less confusion/ agitation today. Review of Systems All systems rev neg: except as marked Objective General VS/I O: Vital Signs: Date Time Temp Pulse Resp B/P B/P Pulse O2 O2 F low FiO2 Mean Ox Delivery Rate 07/11 1747 36.6 59 16 92/60 70.6 98 Room air 07/11 1245 36.3 75 16 94/63 73.0 97 Room air 07/11 0817 37.2 97 16 102/70 80.8 96 Room air 07/11 0337 36.7 99 16 122/85 97.2 100 Room air 07/11 0043 36.4 90 16 104/67 79.4 99 24 hour I O ending at 0700: 07/11 0700 07/10 1900 Intake Total Output Total 1600 Balance -1600 Output, Urine 1600 PATIENT WEIGHT: Weight (lb): Weight (oz): Weight (kg): 84.091 Medications: Active Meds + DC'd Last 24 Hrs Docusate Sodium (COLACE) 100 MG BID PO Lactulose (LACTULOSE) 20 GM BID PRN PRN PO Doxycycline Monohydrate (DOXYCYCLINE MONOHYDRATE ) 100 MG Q12HR PO Tamsulosin HCl (Flomax 0.4 mg) 0.4 MG DAILY PO Clopidogrel Bisulfate (Plavix) 75 MG BEDTIME PO Rivaroxaban (XARELTO 20MG) 20 MG DAILY PO Amlodipine Besylate (NORVASC) 5 MG DAILY PO Aspirin (ASPIRIN) 81 MG DAILY PO Losartan Potassium (COZAAR) 100 MG DAILY PO Metoprolol Tartrate (LOPRESSOR) 25 MG BEDTIME PO Cyanocobalamin (Vitamin B-12 500 mcg tab) 500 MC G DAILY PO Folic Acid (FOLIC ACID) 1 MG DAILY PO Multivitamins (TAB-A-FINESSE) 1 TAB DAILY PO Sterile Water (WATER FOR INJECTION) 1.2 ML ASDIR PRN IV Thiamine HCl (THIAMINE HCL) 100 MG DAILY PO Ziprasidone (GEODON 20MG VIAL) 10 MG Q6H PRN PRN IM Lorazepam (ATIVAN) 1 MG Q6H PRN PRN IV Sodium Chloride (SODIUM CHLORIDE) 0 ASDIR PRN I V Physical Exam General appearance: alert, awake, no acu te distress, pleasant, conversational, no respiratory distress Head/Eyes: atraumatic, EOMI, normocephalic, PERR L ENT: moist mucosal membranes Neck: full range of motion, non-tender Cardiovascular: normal heart sounds, regular rat e rhythm Respiratory: aerating well, clear to auscultatio n Abdomen: non-tender, normal bowel sounds, soft, no distention Extremities: no clubbing, no cyanosis, no edema Skin: no rash Ulcer: Type/cause: arterial Duration: chronic Location: foot Laterality: left Stage: 3 Results Findings/Data: Laboratory Tests 07/11 0330 Chemistry Sodium (134 - 147 mEq/L) 138 Potassium (3.4 - 5.0 mEq/L) 4.2 Chloride (100 - 108 mEq/L) 107 Carbon Dioxide (21 - 33 mEq/l) 22 Anion Gap (0 - 20) 13 BUN (7 - 18 mg/dL) 12 Creatinine (0.6 - 1.3 mg/dL) 0.8 Glomerular Filtr Rate (70 - 80) 91.9 H Glucose (70 - 110 mg/dL) 91 Calcium (8.0 - 10.5 mg/dL) 8.7 Laboratory Tests 07/11 0330 Hematology WBC (4.5 - 11.0 x10 3/uL) 11.9 H RBC (4.00 - 5.60 x10 6/uL) 2.79 L Hgb (12.5 - 16.9 g/dL) 8.6 L Hct (37.5 - 50.7 %) 27.4 L MCV (81.0 - 99.0 fL) 98.2 MCH (27.0 - 33.0 pg) 30.8 MCHC (33.0 - 37.0 g/dL) 31.4 L RDW (11.5 - 14.5 %) 14.0 Plt Count (150 - 400 x10 3/uL) 314 MPV (7.0 - 9.0 fL) 9.8 H Neut % (Auto) (56.0 - 77.0 %) 71.4 Lymph % (Auto) (14.0 - 32.0 %) 16.3 Person % (Auto) (4.8 - 9.0 %) 9.2 H Eos % (Auto) (0.3 - 3.7 %) 1.9 Baso % (Auto) (0.0 - 2.0 %) 0.4 Neut # (Auto) (2.0 - 7.6 x10 3/uL) 8.52 H Lymph # (Auto) (1.0 - 3.8 x10 3/uL) 1.94 Person # (Auto) (0.1 - 0.8 x10 3/uL) 1.10 H Eos # (Auto) (0.0 - 0.2 x10 3/uL) 0.23 H Baso # (Auto) (0.0 - 0.2 x10 3/uL) 0.05 Abs Immat Gran (auto) (0.00 - 0.03 x10 3/uL) 0. 09 H Add Manual Diff NO Immature Gran % (0.0 - 2.0 %) 0.8 Nucleated RBC % (0 - 0 %) 0.0 Nucleated RBCs # (Man) (0.0 - 0.1 x10 3/uL) 0.0 0 Diagnosis, Assessment Plan Free Text DxA P Notes Free text DxA P notes: 1. Left lower extremity swelling. 2. Peripheral vascular disease. 3. Atrial fibrillation. 4. Foot wounds. 5. Questionable history of syncope. 6. Alcohol use. 7. Benign prostatic hypertrophy. 8. Hypertension. Improving mentation, continue to monitor. Pain/ discomfort related to reperfusion. Empiric abx. Swelling improving. Continue med tx. Monitor BP/ HR. Foot wound care. Appreciate Psych, Vasc, Pod input. Start PT/OT. Electronically Signed by Santiago Garcia MD on at 2040 RPT #:[id number] END OF REPORT 2021-07-11 08:53:00-00:00 [facility] Vascular Surgery Progress Note REPORT#:[id number] REPORT STATUS: Signed DATE:07/11/21 TIME: 852 PATIENT: KAYLYNN MISTRY UNIT #: [id number] ROOM/BED: [place] [address] : 35 AGE: 85 SEX: M ATTEND: Vinnie Garcia MD ADM AUTHOR: Abad Oakley MD * ALL edits or amendments must be made on the [employer]/computer document * Subjective HPI Patient left leg swelling stable. Review of Systems Constitutional: Denies: chills, fatigue, fever, recent wt loss. Skin: abrasion, bruising, ecchymosis, swelling. Denies : contusion, laceration. Eyes: Denies: redness, discharge, visual loss/blurred, itching, eye pain. ENT: Denies: ear drainage, ear ringing, earache, hear ing loss, nasal congestion. Respiratory: Denies: PAZ (dyspnea on exertion), hemoptysis, n on productive cough, SOB, wheezing. Cardiovascular: edema. Denies: chest pain, orthopnea, palpitatio ns. GI: Denies: abdominal pain, diarrhea, vomiting. : Denies: dysuria, flank pain, frequency, hematuri a, nocturia. Musculoskeletal: extremity swelling. Psych: Denies: agitation, anxiety, confusion, delusiona l, depression. Review of Systems Unable to obtain due to: confusion Objective General VS/I O: Last Documented: Result Date Time Pulse Ox 96 07/11 816 B/P 102/70 07/11 816 B/P Mean 80.8 07/11 816 O2 Delivery Room air 07/11 816 Temp 99.0 07/11 816 Pulse 97 07/11 816 Resp 16 07/11 816 24 hour I O ending at 0700: 07/11 0700 07/10 1900 Intake Total Output Total 1600 Balance -1600 Output, Urine 1600 PATIENT WEIGHT: Weight (lb): Weight (oz): Weight (kg): 84.091 Medications: Active Meds + DC'd Last 24 Hrs Tamsulosin HCl (Flomax 0.4 mg) 0.4 MG DAILY PO Clopidogrel Bisulfate (Plavix) 75 MG BEDTIME PO Rivaroxaban (XARELTO 20MG) 20 MG DAILY PO Amlodipine Besylate (NORVASC) 5 MG DAILY PO Aspirin (ASPIRIN) 81 MG DAILY PO Losartan Potassium (COZAAR) 100 MG DAILY PO Metoprolol Tartrate (LOPRESSOR) 25 MG BEDTIME PO Cyanocobalamin (Vitamin B-12 500 mcg tab) 500 MC G DAILY PO Folic Acid (FOLIC ACID) 1 MG DAILY PO Multivitamins (TAB-A-FINESSE) 1 TAB DAILY PO Sterile Water (WATER FOR INJECTION) 1.2 ML ASDIR PRN IV Thiamine HCl (THIAMINE HCL) 100 MG DAILY PO Ziprasidone (GEODON 20MG VIAL) 10 MG Q6H PRN PRN IM Lorazepam (ATIVAN) 1 MG Q6H PRN PRN IV Sodium Chloride (SODIUM CHLORIDE) 0 ASDIR PRN IV HEENT: anicteric, mucosal membranes moist, eomi Neck: full range of motion, non-tender, supple/n o meningismus, no JVD Cardiovascular: normal heart sounds, regular rat e rhythm Respiratory: aerating well, symmetric expansion, no distress Abdomen: soft, non-tender, no distention Genitourinary: no flank pain Extremities: edema, patent, moves all Neuro/HAND COLLATOR: alert, oriented X 3, CNII-XII intact Skin: ecchymosis, rash, dry Ulcer: Type/cause: arterial Duration: chronic Location: foot Laterality: left Stage: 3 Psychiatry: abnl judgment/insight, normal affect Results Findings/Data: Laboratory Tests 07/11 329 Chemistry Sodium (134 - 147 mEq/L) 138 Potassium (3.4 - 5.0 mEq/L) 4.2 Chloride (100 - 108 mEq/L) 107 Carbon Dioxide (21 - 33 mEq/l) 22 Anion Gap (0 - 20) 13 BUN (7 - 18 mg/dL) 12 Creatinine (0.6 - 1.3 mg/dL) 0.8 Glomerular Filtr Rate (70 - 80) 91.9 H Glucose (70 - 110 mg/dL) 91 Calcium (8.0 - 10.5 mg/dL) 8.7 Laboratory Tests 07/11 329 Hematology WBC (4.5 - 11.0 x10 3/uL) 11.9 H RBC (4.00 - 5.60 x10 6/uL) 2.79 L Hgb (12.5 - 16.9 g/dL) 8.6 L Hct (37.5 - 50.7 %) 27.4 L MCV (81.0 - 99.0 fL) 98.2 MCH (27.0 - 33.0 pg) 30.8 MCHC (33.0 - 37.0 g/dL) 31.4 L RDW (11.5 - 14.5 %) 14.0 Plt Count (150 - 400 x10 3/uL) 314 MPV (7.0 - 9.0 fL) 9.8 H Neut % (Auto) (56.0 - 77.0 %) 71.4 Lymph % (Auto) (14.0 - 32.0 %) 16.3 Person % (Auto) (4.8 - 9.0 %) 9.2 H Eos % (Auto) (0.3 - 3.7 %) 1.9 Baso % (Auto) (0.0 - 2.0 %) 0.4 Neut # (Auto) (2.0 - 7.6 x10 3/uL) 8.52 H Lymph # (Auto) (1.0 - 3.8 x10 3/uL) 1.94 Person # (Auto) (0.1 - 0.8 x10 3/uL) 1.10 H Eos # (Auto) (0.0 - 0.2 x10 3/uL) 0.23 H Baso # (Auto) (0.0 - 0.2 x10 3/uL) 0.05 Abs Immat Gran (auto) (0.00 - 0.03 x10 3/uL) 0. 09 H Add Manual Diff NO Immature Gran % (0.0 - 2.0 %) 0.8 Nucleated RBC % (0 - 0 %) 0.0 Nucleated RBCs # (Man) (0.0 - 0.1 x10 3/uL) 0.0 0 Radiology data: Recent Impressions: RADIOLOGY - XR FOOT 3 + V LT 07/10 1500 Report Impression - Status: SIGNED Entered: 07/10/2021 1554 IMPRESSION: No acute abnormality. Impression By: [id number] - Devi rod M.D. ULTRASOUND - DOP ART QUALITY CONTROL CLERK LEVEL HILARIO 07/10 1619 Report Impression - Status: SIGNED Entered: 07/11/2021 0719 Impression: 1. Normal ankle brachial indices bilaterally. 2. No ultrasound evidence for hemodynamically si gnificant stenosis in the right lower extremity arteries. 3. Monophasic flow throughout the left lower ext remity arteries suggesting inflow arterial disease to the left c ommon femoral artery. Impression By: [id number] - Sherman Golden M.D. Diagnosis, Assessment Plan Hospital course to date: Patient with re-perfusion edema of left leg wors ened by chronic venous hypertension. No objective findings of celluluti s however I am supportive of emperic antibiotic therapy regarding active ulce rs in foot. Outpatient venous fuplex negative for DVT per report. Reviewed arterial duplex images to evaluate revasuclarization which demonstrated patent popl iteal and posterio tibial arteries stable from intervention. Recom mend kerlix and SALMA dressing from toes to knee changed q day for left leg. Elevate leg. No vascular intervention planned. Will follow along. Problem List/A P: 1. PAD (peripheral artery disease) 2. Pain in left lower leg Free Text A P: Patient with re-perfusion edema of left leg wors ened by chronic venous hypertension. No objective findings of celluluti s however I am supportive of empric antibiotic therapy regarding active ulcer s in foot. Outpatient venous fuplex negative for DVT per report. Selena etn had 7 day course of doxycycline as outpatient. Recommend arteri al duplex to evaluate revasuclarization although he has triphasic signals on exam. Recommend kerlix and SALMA dressing from toes to kne changed q day for left l eg. Elevate leg. No immediate vascular intervention planned. THank you for the consult. Will follow along. at 0859 RPT #:[id number] END OF REPORT 2021-07-10 20:31:00-00:00 [facility] Hospitalist Progress Note REPORT#:[id number] REPORT STATUS: Signed DATE:07/10/21 TIME: 2030 PATIENT: KAYLYNN MISTRY UNIT #: [id number] ROOM/BED: [place] [address] : 35 AGE: 85 SEX: M ATTEND: Vinnie Garcia MD ADM AUTHOR: Santiago Gacria MD * ALL edits or amendments must be made on the [employer]/computer document * Subjective Chief complaint: Pt seen and exam'd. Events noted. Following up l eg pain, confusion. Less confusion/ agitation today. Review of Systems All systems rev neg: except as marked Objective General VS/I O: Vital Signs: Date Time Temp Pulse Resp B/P B/P Pulse O2 O2 Flow FiO2 Mean Ox Delivery Rate 07/10 1940 36.4 58 16 111/72 85.2 96 07/10 1724 37.1 93 18 134/89 103.8 99 Room air 07/10 1201 37.1 92 18 139/76 96.7 100 Room air 07/10 0840 36.6 99 18 167/67 100.6 100 Room air 07/10 0422 37.0 90 16 138/87 104.3 100 Room air 07/10 0034 37.0 97 16 130/85 99.8 100 Room air 07/09 2125 36.9 100 16 119/66 84.0 99 Room air 24 hour I O ending at 0700: 07/10 0700 07/09 1900 Intake Total Output Total 1200 1740 Balance -1200 -1740 Output, Urine 1200 1740 PATIENT WEIGHT: Weight (lb): Weight (oz): Weight (kg): 84.091 Medications: Active Meds + DC'd Last 24 Hrs Amlodipine Besylate (NORVASC) 5 MG DAILY PO (DC) Aspirin (ASPIRIN) 81 MG DAILY PO (DC) Clopidogrel Bisulfate (Plavix) 75 MG DAILY PO (D C) Losartan Potassium (COZAAR) 100 MG DAILY PO (DC) Rivaroxaban (XARELTO 20MG) 20 MG DAILY PO (DC) Tamsulosin HCl (Flomax 0.4 mg) 0.4 MG DAILY PO Clopidogrel Bisulfate (Plavix) 75 MG BEDTIME PO Rivaroxaban (XARELTO 20MG) 20 MG DAILY PO Amlodipine Besylate (NORVASC) 5 MG DAILY PO Aspirin (ASPIRIN) 81 MG DAILY PO Losartan Potassium (COZAAR) 100 MG DAILY PO Metoprolol Tartrate (LOPRESSOR) 25 MG BEDTIME PO Cyanocobalamin (Vitamin B-12 500 mcg tab) 500 MC G DAILY PO Folic Acid (FOLIC ACID) 1 MG DAILY PO Multivitamins (TAB-A-FINESSE) 1 TAB DAILY PO Sterile Water (WATER FOR INJECTION) 1.2 ML ASDIR PRN IV Thiamine HCl (THIAMINE HCL) 100 MG DAILY PO Ziprasidone (GEODON 20MG VIAL) 10 MG Q6H PRN PRN IM Lorazepam (ATIVAN) 1 MG Q6H PRN PRN IV Sodium Chloride (SODIUM CHLORIDE) 0 ASDIR PRN IV Physical Exam General appearance: no acute distress, no respir atory distress Head/Eyes: atraumatic, EOMI, normocephalic, PERR L ENT: moist mucosal membranes Neck: full range of motion, non-tender Cardiovascular: normal heart sounds, regular rat e rhythm Respiratory: aerating well, clear to auscultatio n Abdomen: non-tender, normal bowel sounds, soft, no distention Extremities: no clubbing, no cyanosis, no edema Skin: no rash Results Findings/Data: Laboratory Tests 07/10 0430 Chemistry Sodium (134 - 147 mEq/L) 140 Potassium (3.4 - 5.0 mEq/L) 4.0 Chloride (100 - 108 mEq/L) 111 H Carbon Dioxide (21 - 33 mEq/l) 21 Anion Gap (0 - 20) 12 BUN (7 - 18 mg/dL) 10 Creatinine (0.6 - 1.3 mg/dL) 0.8 Glomerular Filtr Rate (70 - 80) 91.9 H Glucose (70 - 110 mg/dL) 82 Calcium (8.0 - 10.5 mg/dL) 8.4 Laboratory Tests 07/10 0430 Hematology WBC (4.5 - 11.0 x10 3/uL) 10.2 RBC (4.00 - 5.60 x10 6/uL) 2.44 L Hgb (12.5 - 16.9 g/dL) 7.6 L Hct (37.5 - 50.7 %) 23.8 L MCV (81.0 - 99.0 fL) 97.5 MCH (27.0 - 33.0 pg) 31.1 MCHC (33.0 - 37.0 g/dL) 31.9 L RDW (11.5 - 14.5 %) 14.2 Plt Count (150 - 400 x10 3/uL) 254 MPV (7.0 - 9.0 fL) 9.8 H Neut % (Auto) (56.0 - 77.0 %) 70.2 Lymph % (Auto) (14.0 - 32.0 %) 17.5 Person % (Auto) (4.8 - 9.0 %) 9.4 H Eos % (Auto) (0.3 - 3.7 %) 1.6 Baso % (Auto) (0.0 - 2.0 %) 0.6 Neut # (Auto) (2.0 - 7.6 x10 3/uL) 7.19 Lymph # (Auto) (1.0 - 3.8 x10 3/uL) 1.79 Person # (Auto) (0.1 - 0.8 x10 3/uL) 0.96 H Eos # (Auto) (0.0 - 0.2 x10 3/uL) 0.16 Baso # (Auto) (0.0 - 0.2 x10 3/uL) 0.06 Abs Immat Gran (auto) (0.00 - 0.03 x10 3/uL) 0. 07 H Add Manual Diff NO Immature Gran % (0.0 - 2.0 %) 0.7 Nucleated RBC % (0 - 0 %) 0.0 Nucleated RBCs # (Man) (0.0 - 0.1 x10 3/uL) 0.0 0 Diagnosis, Assessment Plan Free Text DxA P Notes Free text DxA P notes: 1. Left lower extremity swelling. 2. Peripheral vascular disease. 3. Atrial fibrillation. 4. Foot wounds. 5. Questionable history of syncope. 6. Alcohol use. 7. Benign prostatic hypertrophy. 8. Hypertension. Improving mentation, continue to monitor. Pain/ discomfort related to reperfusion. Continue med tx. Monitor BP/ HR. Foot wound care. Appreciate Psych, Vasc, Pod input. Electronically Signed by Santiago Garcia MD on at 2039 RPT #:[id number] END OF REPORT 2021-07-10 14:15:00-00:00 [facility] Podiatry Consult Note REPORT#:[id number] REPORT STATUS: Signed DATE:07/10/21 TIME: 1415 PATIENT: KAYLYNN MISTRY UNIT #: [id number] ROOM/BED: [place] [address] : 35 AGE: 85 SEX: M ATTEND: Vinnie Garcia MD ADM AUTHOR: Reuben Douglas DPM * ALL edits or amendments must be made on the [employer]/computer document * History of Present Illness Requesting clinician: Dr. Garcia Reason for consult: Ulcerations left foot Chief complaint: Ulcerations left foot HPI: 85 year old male with significant PMH of PAD b/l LE s/p intervention b/l LE admitted for swelling and tenderness of left low er leg. We were consulted for ulcerations on the left foot. Patient's daughter informed me that recently he injured his left foot. He used to see a podiatri [place] that was taking care of a corn on his foot. Patient denies pain in the foot. He denies to fevers, chills, night sweats, nause or v omitting. He does c/o of tenderness in the left leg. Dr. Oakley saw patient and recomme nding compression dressing to left LE, no immediate need f or intervention as patient with triphasic signals on exam. History - Adult longitudinal Past medical history: Reports: Alcoholism/subst ab use, Atrial fibrillation, Hypertension, BPH, Chronic pain, Periph arterial disease. Additional surgical history: LLE stent 06/29/21 Additional family history: not relavent to current illness Alcohol use: Alcohol use Drug use: Denies recreational drugs Smoking status: Smoking status for patients 13 years old or old er: Current every day smoker Other social history: Visiting locally Additional social history: LIves at home alone in a SSH. He has walkers he states but does not use it. States that he was driving as PLOF. No stairs t o enter his home. Allergies: Coded Allergies: Iodinated Contrast Media (Intermediate, ALTERED MENTAL STATUS 06/27/21) Review of Systems Constitutional: Denies: chills, fatigue, fever, recent wt loss. Skin: abrasion, bruising, ecchymosis, swelling. Denies : contusion, laceration. Eyes: Denies: redness, discharge, visual loss/blurred, itching, eye pain. ENT: Denies: ear drainage, ear ringing, earache, hear ing loss, nasal congestion. Respiratory: Denies: PAZ (dyspnea on exertion), hemoptysis, n on productive cough, SOB, wheezing. Cardiovascular: edema. Denies: chest pain, orthopnea, palpitatio ns. GI: Denies: abdominal pain, diarrhea, vomiting. : Denies: dysuria, flank pain, frequency, hematuri a, nocturia. Musculoskeletal: extremity swelling. Psych: Denies: agitation, anxiety, confusion, delusiona l, depression. Objective General VS: Last Documented: Result Date Time Pulse Ox 100 07/10 1200 B/P 139/76 07/10 1200 B/P Mean 96.7 07/10 120 O2 Delivery Room air 07/10 1200 Temp 98.8 07/10 1200 Pulse 92 07/10 120 Resp 18 07/10 1200 PATIENT WEIGHT: Weight (lb): Weight (oz): Weight (kg): 84.091 Medications: Active Meds + DC'd Last 24 Hrs Amlodipine Besylate (NORVASC) 5 MG DAILY PO (DC) Aspirin (ASPIRIN) 81 MG DAILY PO (DC) Clopidogrel Bisulfate (Plavix) 75 MG DAILY PO (D C) Losartan Potassium (COZAAR) 100 MG DAILY PO (DC) Rivaroxaban (XARELTO 20MG) 20 MG DAILY PO (DC) Tamsulosin HCl (Flomax 0.4 mg) 0.4 MG DAILY PO Clopidogrel Bisulfate (Plavix) 75 MG BEDTIME PO Rivaroxaban (XARELTO 20MG) 20 MG DAILY PO Amlodipine Besylate (NORVASC) 5 MG DAILY PO Aspirin (ASPIRIN) 81 MG DAILY PO Losartan Potassium (COZAAR) 100 MG DAILY PO Metoprolol Tartrate (LOPRESSOR) 25 MG BEDTIME PO Cyanocobalamin (Vitamin B-12 500 mcg tab) 500 MC G DAILY PO Folic Acid (FOLIC ACID) 1 MG DAILY PO Multivitamins (TAB-A-FINESSE) 1 TAB DAILY PO Sterile Water (WATER FOR INJECTION) 1.2 ML ASDIR PRN IV Thiamine HCl (THIAMINE HCL) 100 MG DAILY PO Ziprasidone (GEODON 20MG VIAL) 10 MG Q6H PRN PRN IM Lorazepam (ATIVAN) 1 MG Q6H PRN PRN IV Sodium Chloride (SODIUM CHLORIDE) 0 ASDIR PRN IV Piperacillin Sod/Tazobactam Sod (ZOSYN 3.375GM) 3.375 GM Q8H IV (DC) Sodium Chloride (SODIUM CHLORIDE 0.9% 100 ML) 1 00 ML Haloperidol Lactate (HALDOL) 2.5 MG Q6H PRN PRN IM (DC) Quetiapine Fumarate (SEROqueL) 25 MG Q6H PRN PRN PO (DC) Acetaminophen (TYLENOL) 650 MG Q4H PRN PRN PO (D C) Hydralazine HCl (APRESOLINE) 10 MG Q2H PRN PRN I V (DC) Hydrocodone Bitart/Acetaminophen (NORCO 5/325) 1 TAB Q4H PRN PRN PO (DC) Ondansetron HCl (ZOFRAN) 4 MG Q6H PRN PRN IV (DC ) Nutrition assessment: The data set between the solid lines has been im ported from the dietitian's assessment. Any exceptions have been noted under Provider comments. BMI Calculated: 27.4 Nutrition related diagnosis: Nutrition diagnosis details: Nutrition problem: Nutrition etiology: Nutrition signs and symptoms: Nutrition prescription: Dietitian name: Assessment completed: Provider comments on imported dietitian assessme nt: Physical Exam General appearance: alert, awake, oriented LE vascular pulse assess: 1+ R posterior tibialis, 1+ L posterior tibialis , 1+ R dorsalis pedis, 1+ L dorsalis pedis Capillary refill: Capillary refill (in seconds): < 3 seconds Right foot, < 3 seconds Left foot Edema: non-pitting Right leg, non-pitting Left leg Reflexes: Achilles: 2+ Foot: vascular deficit Feet Top - Top View (L) [Embedded Image Not Available] 1) Small dry stable eschar lesion Feet - Bottom View (L) [Embedded Image Not Available] 1) Ulcer with dry stable eschar Musculoskeletal: Musculoskeletal: decreased ROM Neuro/HAND COLLATOR: oriented X 3, no motor deficits Skin: ecchymosis (ecchymosis of left foot), dry Ulcer: Location: foot Type: arterial Appearance: necrotic tissue, Ulcerations to the dorsal 4th toe and plantar hallux have dry stable escha r no localized skin or soft tissue infection noted. Drainage: without odor Diagnosis, Assessment Plan Free Text A P: PAD b/l LE s/p recent revascularization Ulcerations toes 1 and 4 left foot with dry, sta ble eschar Localized edema b/l LE Injury left foot Recommend iodine dressing changes to ulcerations left foot to keep the eschar dry and stable. Recommend x-rays left foot Recommend Prevalon boots Cardiovascular team already saw patient, ordered repeat arterial doppler b/l LE Will continue to follow the patient Thank you for consultations Plan discussed with: daughter Electronically Signed by DouglasReuben SORIANO on 01/21 at 1433 RPT #:[id number] END OF REPORT 2021-07-09 18:49:00-00:00 [phone] [place], [place] [address] PATIENT NAME: KAYLYNN MISTRY ADMIT DATE: 2 ACCOUNT NO: [id number] ROOM NO: [id number] AGE: 85 REPORT TYPE: HISTORY AND PHYSICAL SEX: M ADMITTING PHYSICIAN:Santiago Garcia MD ATTENDING PHYSICIAN:Santiago Garcia MD ADMISSION DATE: 07/08/2021 CHIEF COMPLAINT: Leg pain. HISTORY OF PRESENT ILLNESS: An 85-year-old male with past medical history below, whose history is limited as he is unable to provide his own history due to some confusion. His history is obtained from nursing and ER staff and records. He reports questionable syncopal episode with le ft foot wound and left lower extremity pain and swelling. PAST MEDICAL HISTORY: PVD status post recent int ervention, BPH, hypertension, atrial fibrillation, alcohol use, chronic pain, left lower extremity stent placement on June 29 of this year. MEDICATIONS: Reviewed; please see list. ALLERGIES: IV IODINE. SOCIAL HISTORY: Currently at home with his famil y. FAMILY HISTORY: Reviewed and noncontributory to present illness. REVIEW OF SYSTEMS: Fourteen-point review of syst ems obtained and are negative except as noted above. PHYSICAL EXAMINATION: VITAL SIGNS: Temperature 36.9, pulse 90, respira tions 16, and blood pressure 134/89. GENERAL: Awake and alert at times, cooperative a t times, confused. HEENT: Normocephalic and atraumatic. Pupils equa lly round and reactive to light. Extraocular muscles are intact. Oropharyn x pink without lesions. Mucous membranes moist. NECK: Supple without bruits or JVD. LUNGS: Grossly clear. HEART: S1 and S2 regular. ABDOMEN: Positive bowel sounds. Soft, nontender, and nondistended. EXTREMITIES: Left lower extremity warm with some swelling noted, diffuse tenderness, small lesions to the foot no loren. Right without clubbing, cyanosis, or edema. LABORATORY AND X-RAY: WBC 10 , hemoglobin 8, hematocrit 25.7, and platelets 257. PATIENT NAME: KAYLYNN MISTRY 0883 Sodium 141, potassium 4.8, chloride 108, bicarb deondre 26, BUN 24, creatinine 0.9. Glucose 119. INR 2.1. Foot x-ray, no acute bony abnormalities to the l eft foot. ASSESSMENT: 1. Left lower extremity swelling. 2. Peripheral vascular disease. 3. Atrial fibrillation. 4. Foot wounds. 5. Questionable history of syncope. 6. Alcohol use. 7. Benign prostatic hypertrophy. 8. Hypertension. PLAN: Admit the patient. Continue medical treatm ent. He is being evaluated by vascular surgeon. Request a Doppler ultrasound o f the left lower extremity. Request Podiatry evaluation regarding hi s foot wounds. The patient with marked agitation. He is requiring the use of restraints as well as IV sedative medications. We will continue to monitor his men tation. Request Psychiatry input. Provide nutritional support. Per family, he has not had any alcohol in at least 2 weeks. Discussed with the patient and nurse. Further medical problems will be addressed as they arise. The patient was seen and examined on 07/09/2021 at 1500 hours. Dictated By: Santiago Garcia MD WT: HP:ALEIDA/RITU/LIZBETH Conf#: [id number]/DID#: [id number] Authenticated by Santiago Garcia MD On 07/18/2021 05:34:53 PM Electronically Signed by Santiago Garcia MD on 0 07/18/21 at 0534 PATIENT NAME: KAYLYNN MISTRY 0883 2021-07-09 17:00:00-00:00 [facility] Vascular Surgery Consult Note REPORT#:[id number] REPORT STATUS: Signed DATE:07/09/21 TIME: 1700 PATIENT: KAYLYNN MISTRY UNIT #: [id number] ROOM/BED: [place] [id number] : 35 AGE: 85 SEX: M ATTEND: Vinnie Garcia MD ADM AUTHOR: Abad Oakley MD * ALL edits or amendments must be made on the el [employer]/computer document * History of Present Illness Requesting Clinician: Dr. Garcia, Dr. Soto Reason for consult: Left leg swelling s/p procedure Chief complaint: same HPI: 85 yo male well known to me with past medical history of Alcoholism/subst abuse, Atrial fibrillation, Hypertension, BPH, Chronic pain, and Periph arterial disease s/p recent lower ext remity revascularization for critical limb ischemia and history of chronic venous insufficiency pres ents with swelling and tenderness to his left lower leg with eccymosis andpurple apearance and increased wamth with thin shiny skin. His left f oot has chronic ulcers. History - Adult longitudinal Past medical history: Reports: Alcoholism/subst ab use, Atrial fibrillation, Hypertension, BPH, Chronic pain, Periph arterial disease. Additional surgical history: LLE stent 06/29/21 Additional family history: not relavent to current illness Alcohol use: Alcohol use Drug use: Denies recreational drugs Smoking status: Smoking status for patients 13 years old or old er: Current every day smoker Other social history: Visiting locally Additional social history: LIves at home alone in a H. He has walkers he states but does not use it. States that he was driving as PLOF. No stairs t o enter his home. Medications: Home Medications: Medication Dose/Rte/Freq Days Qty Entered Last Max Daily Dose Reviewed DOXYCYCLINE 100 MG PO Q12H 07/09/21 07/09/21 MONOHYDRATE 0053 0054 (ADOXA) Strength: 100 MG TAB LOSARTAN (COZAAR) 100 MG PO DAILY 04/13/2112/22 Strength: 100 MG TAB 0516 0048 RIVAROXABAN (XARELTO) 20 MG PO DAILY 04/13/21 0 07/09/21 Strength: 20 MG TAB 0516 0051 TAMSULOSIN ER (FLOMAX) 0.4 MG PO DAILY 04/13/21 07/09/21 Strength: 0.4 MG CAP.SR.24H 0517 0050 METOPROLOL TARTRATE 25 MG PO BEDTIME 06/27/21 0 07/09/21 (LOPRESSOR) 0844 0050 Strength: 25 MG TAB ASPIRIN EC (ECOTRIN) 81 MG PO DAILY 06/27/21 Strength: 81 MG TAB.EC 0845 0049 amLODIPine (NORVASC) 5 MG PO DAILY 30 04/27/21 07/09/21 Strength: 2.5 MG TAB 1202 0051 CLOPIDOGREL (PLAVIX) 75 MG PO DAILY 30 03/30/22 04/09/22 Strength: 75 MG TAB 1353 0051 Current Hospital Medications: Anti-Infective Agents Sig/Tate Start time Last Medication Dose Route Stop Time Status Admin Piperacillin Sod/ 3.375 GM Q8H 07/09 0230 AC Tazobactam Sod IV 07/09 1829 1047 (ZOSYN 3.375GM) Sodium Chloride 100 ML (SODIUM CHLORIDE 0.9% 100 ML) Piperacillin Sod/ 3.375 GM X1ED STA 07/08 1723 DC 07/08 Tazobactam Sod IV 07/08 1752 1827 (ZOSYN 3.375GM) Sodium Chloride 100 ML (SODIUM CHLORIDE 0.9% 100 ML) Vancomycin HCl 1,500 MG X1ED STA 07/08 1723 DC 07/08 (VANCOMYCIN HCL) IV 07/08 1852 1918 Sodium Chloride 500 ML (NS 0.9%) Autonomic Drugs Sig/Tate Start time Last Medication Dose Route Stop Time Status Admin Tamsulosin HCl 0.4 MG DAILY 07/10 899 AC (Flomax 0.4 mg) PO 08/09 858 Blood Formation,Coagulation Sig/Tate Start time Last Medication Dose Route Stop Time Status Admin Clopidogrel Bisulfate 75 MG DAILY 07/10 899 AC (Plavix) PO 08/09 858 Rivaroxaban 20 MG DAILY 07/10 899 AC (XARELTO 20MG) PO 08/09 858 Cardiovascular Drugs Sig/Tate Start time Last Medication Dose Route Stop Time Status Admin Amlodipine Besylate 5 MG DAILY 07/10 899 AC (NORVASC) PO 08/09 858 Losartan Potassium 100 MG DAILY 07/10 899 AC (COZAAR) PO 08/09 858 Metoprolol Tartrate 25 MG BEDTIME 07/09 2100 AC (LOPRESSOR) PO 08/08 2058 Hydralazine HCl 10 MG Q2H PRN PRN 07/08 2115 AC (APRESOLINE) IV 07/09 2001 Central Nervous System Agents Sig/Tate Start time Last Medication Dose Route Stop Time Status Admin Aspirin 81 MG DAILY 07/10 899 AC (ASPIRIN) PO 08/09 08 Ziprasidone 10 MG Q6H PRN PRN 07/09 1530 AC (GEODON 20MG VIAL) IM 08/08 1529 1631 Lorazepam 1 MG Q6H PRN PRN 07/09 1030 AC 07/09 (ATIVAN) IV 08/08 1029 1048 Haloperidol Lactate 2.5 MG Q6H PRN PRN 07/09 02 00 DC (HALDOL) IM 08/08 0159 Quetiapine Fumarate 25 MG Q6H PRN PRN 07/09 020 0 DC (SEROqueL) PO 08/08 0159 Acetaminophen 650 MG Q4H PRN PRN 07/08 2115 AC (TYLENOL) PO 07/09 2001 Hydrocodone Bitart/ 1 TAB Q4H PRN PRN 07/08 211 5 AC Acetaminophen PO 07/09 2001 (NORCO 5/325) Electrolytic, Caloric, And Mirella Sig/Tate Start time Last Medication Dose Route Stop Time Status Admin Sodium Chloride 0 ASDIR PRN 07/09 1030 AC (SODIUM CHLORIDE) IV 08/08 1029 Sodium Chloride 1,000 ML X1ED STA 07/08 1722 DC 07/08 (SODIUM CHLORIDE IV 07/08 1723 1827 0.9%) Gastrointestinal Drugs Sig/Tate Start time Last Medication Dose Route Stop Time Status Admin Ondansetron HCl 4 MG Q6H PRN PRN 07/08 2115 AC (ZOFRAN) IV 07/09 2001 Pharmaceutical Aids Sig/Tate Start time Last Medication Dose Route Stop Time Status Admin Sterile Water 1.2 ML ASDIR PRN 07/09 1530 AC (WATER FOR INJECTION) IV 08/08 1529 Vitamins Sig/Tate Start time Last Medication Dose Route Stop Time Status Admin Cyanocobalamin 500 MCG DAILY 07/09 1530 AC 04 9 (Vitamin B-12 500 PO 08/08 1529 1630 mcg tab) Folic Acid 1 MG DAILY 07/09 1530 AC 07/09 (FOLIC ACID) PO 08/08 1529 1630 Multivitamins 1 TAB DAILY 07/09 1530 AC 07/09 (TAB-A-FINESSE) PO 08/08 1529 1631 Thiamine HCl 100 MG DAILY 07/09 1530 AC 07/09 (THIAMINE HCL) PO 08/08 1529 1630 Allergies: Coded Allergies: Iodinated Contrast Media (Intermediate, ALTERED MENTAL STATUS 06/27/21) Review of Systems All systems rev neg: except as marked Objective VS/I O: Last Documented: Result Date Time Pulse Ox 100 07/09 1433 B/P 134/89 07/09 1433 B/P Mean 104.0 07/09 1433 Temp 98.4 07/09 1433 Pulse 90 07/09 1433 Resp 16 07/09 1433 O2 Delivery Room air 07/09 1108 24 hour I O ending at 0700: 07/09 0700 07/08 1900 Intake Total Output Total Balance Patient 84.091 kg Weight Weight Estimated Measurement Method PATIENT WEIGHT: Weight (lb): Weight (oz): Weight (kg): 84.091 General appearance: alert, awake, oriented HEENT: anicteric, mucosal membranes moist, eomi Neck: full range of motion, non-tender, supple/n o meningismus, no JVD Cardiovascular: normal heart sounds, regular rat e rhythm Respiratory: aerating well, symmetric expansion, no distress Abdomen: soft, non-tender, no distention Genitourinary: no flank pain Extremities: edema, patent, moves all Neuro/HAND COLLATOR: alert, oriented X 3, CNII-XII intact Skin: ecchymosis, rash, dry Ulcer: Type/cause: arterial Duration: chronic Location: foot Laterality: left Stage: 3 Psychiatry: abnl judgment/insight, normal affect Diagnosis, Assessment Plan Problem List/A P: 1. PAD (peripheral artery disease) 2. Pain in left lower leg Free Text A P: Patient with re-perfusion edema of left leg wors ened by chronic venous hypertension. No objective findings of celluluti s however I am supportive of empric antibiotic therapy regarding active ulcer s in foot. Outpatient venous fuplex negative for DVT per report. Selena etn had 7 day course of doxycycline as outpatient. Recommend arteri al duplex to evaluate revasuclarization although he has triphasic signals on exam. Recommend kerlix and SALMA dressing from toes to kne changed q day for left l eg. Elevate leg. No immediate vascular intervention planned. THank you for the consult. Will follow along. at 1711 RPT #:[id number] END OF REPORT 2021-07-08 17:24:00-00:00 [facility] ([facility]) EMERGENCY PROVIDER REPORT REPORT#:[id number] REPORT STATUS: Signed DATE:07/08/21 TIME: 1724 PATIENT: KAYLYNN MISTRY UNIT #: [id number] ROOM/BED: [place] AGE: 85 SEX: M PCP PHYS: Mamadou Leigh SERVICE AUTHOR: Haris Watkins * ALL edits or amendments must be made on the el [employer]/computer document * Haris Watkins 07/08/21 1724: HPI-General Illness Free Text HPI Notes Free Text HPI Notes 85 M with PAD, s/p arterial stent, sent from [facility] for probable infection to the E. He is anticoaggulated and states he gen erally feels unwell. General Confirmed Patient Yes Initial Greet Date/Time 07/08/21 1714 Provider in Triage Greet Note I have greeted and performed a focused rapid initial assessment of this patient. A comprehensive ED assessment and evaluation of the patient, analysis of all test results, and completion of the medical deci jorge-making process will be conducted by additional ED providers. Past Medical History - Adult Stated Complaint L LOWER LEG SWELLING Allergies Coded Allergies: Iodinated Contrast Media (Intermediate, ALTERED MENTAL STATUS 06/27/21) Home Medications Active Scripts amLODIPine (NORVASC) 5 MG PO DAILY amLODIPine (NORVASC) 5 MG PO DAILY #30 TAB Prov: 04/27/21 CLOPIDOGREL (PLAVIX) 75 MG PO DAILY CLOPIDOGREL (PLAVIX) 75 MG PO DAILY #30 TABS Re f 3 Prov: 06/29/21 Reported Medications LOSARTAN (COZAAR) 100 MG PO DAILY RIVAROXABAN (XARELTO) 20 MG PO DAILY TAMSULOSIN ER (FLOMAX) 0.4 MG PO DAILY METOPROLOL TARTRATE (LOPRESSOR) 25 MG PO BEDTIME ASPIRIN EC (ECOTRIN) 81 MG PO DAILY Past Medical History: Reports: Alcoholism/subst ab use, Atrial fibrillation, Hypertension, BPH, Chronic pain, Periph arterial disease. Additional Surgical History hydrocele testical Tonsillectomy hernia Repair appendicitis cyst behind ear Additional Family History not relavent to current illness Alcohol Use Alcohol use Drug Use Denies recreational drugs Additional Social History LIves at home alone in a H. He has walkers he states but does not use it. States that he was driving as PLOF. No stairs t o enter his home. Physical Exam Vital Signs Vital Signs First Documented: Result Date Time Pulse Ox 98 07/08 1820 B/P 93/58 04/08 1820 B/P Mean 69 04/08 1820 O2 Delivery Room air 07/09 1819 Temp 98.2 07/09 1819 Pulse 68 07/09 1819 Resp 16 07/09 1819 Last Documented: Result Date Time B/P 116/60 07/09 1999 B/P Mean 78 07/09 1999 Pulse 78 07/09 1999 Resp 16 07/09 1999 Pulse Ox 100 07/08 1914 O2 Delivery Room air 07/08 1914 Temp 98.2 07/09 1819 Review of Vital Signs Reviewed Physical Exam General/Const General/Const Awake, Alert, No acute distress, Not toxic appearing Text/Dict Notes edema and tenderness to the LLE. the left foot h as ulcerations and dry wounds Interpretation Diagnostics Lab Results Interpretation Results Laboratory Tests 07/08/211814: [Embedded Image Not Available] Laboratory Tests: 07/08 Chemistry Sodium (134 - 147 mEq/L) 141 Potassium (3.4 - 5.0 mEq/L) 4.8 Chloride (100 - 108 mEq/L) 108 Carbon Dioxide (21 - 33 mEq/l) 26 Anion Gap (0 - 20) 12 BUN (7 - 18 mg/dL) 24 H Creatinine (0.6 - 1.3 mg/dL) 0.9 Glomerular Filtr Rate (70 - 80) 80.2 H Glucose (70 - 110 mg/dL) 119 H Lactic Acid (0.4 - 1.9 mmol/L) 1.2 Calcium (8.0 - 10.5 mg/dL) 8.5 Total Bilirubin (0.0 - 1.0 mg/dL) 1.50 H AST (15 - 37 IUnit/L) 41 H ALT (30 - 65 IUnit/L) 32 Total Alk Phosphatase (20 - 125 IUnit/L) 87 Total Creatine Kinase (35 - 232 Units/L) 295 H Troponin I High Sens (0 - 54 ng/L) 15 C-Reactive Protein (<10.0 mg/L) 82.0 H Total Protein (6.4 - 8.2 g/dL) 6.1 L Albumin (3.4 - 5.0 g/dL) 3.10 L Coagulation INR (0.8 - 1.2) 2.1 H PTT (Shira) (25.0 - 39.5 Seconds) 36.1 PT Patient/Control Mix (9.3 - 12.9 SECONDS) 23. 9 H Hematology WBC (4.5 - 11.0 x10 3/uL) 10.0 RBC (4.00 - 5.60 x10 6/uL) 2.62 L Hgb (12.5 - 16.9 g/dL) 8.0 L Hct (37.5 - 50.7 %) 25.7 L MCV (81.0 - 99.0 fL) 98.1 MCH (27.0 - 33.0 pg) 30.5 MCHC (33.0 - 37.0 g/dL) 31.1 L RDW (11.5 - 14.5 %) 14.1 Plt Count (150 - 400 x10 3/uL) 257 MPV (7.0 - 9.0 fL) 9.8 H Neut % (Auto) (56.0 - 77.0 %) 68.0 Lymph % (Auto) (14.0 - 32.0 %) 16.7 Person % (Auto) (4.8 - 9.0 %) 11.6 H Eos % (Auto) (0.3 - 3.7 %) 1.2 Baso % (Auto) (0.0 - 2.0 %) 0.5 Neut # (Auto) (2.0 - 7.6 x10 3/uL) 6.83 Lymph # (Auto) (1.0 - 3.8 x10 3/uL) 1.67 Person # (Auto) (0.1 - 0.8 x10 3/uL) 1.16 H Eos # (Auto) (0.0 - 0.2 x10 3/uL) 0.12 Baso # (Auto) (0.0 - 0.2 x10 3/uL) 0.05 Abs Immat Gran (auto) (0.00 - 0.03 x10 3/uL) 0. 20 H Add Manual Diff NO Immature Gran % (0.0 - 2.0 %) 2.0 Nucleated RBC % (0 - 0 %) 0.0 Nucleated RBCs # (Man) (0.0 - 0.1 x10 3/uL) 0.0 0 ESR Westergren (0 - 15 mm/hr) 69 H Urines Urine Color (YEL/STRAW) YELLOW Urine Appearance (CLEAR) CLEAR Urine pH (5.0 - 7.0) 6.0 Ur Specific Murphy (1.005 - 1.030) 1.015 Urine Protein (NEGATIVE) NEGATIVE Urine Glucose (UA) (NEGATIVE) NEGATIVE Urine Ketones (NEGATIVE) NEGATIVE Urine Blood (NEGATIVE) 1+ H Urine Nitrite (NEGATIVE) NEGATIVE Urine Bilirubin (NEGATIVE) NEGATIVE Urine Urobilinogen (0.2 - 1.0 mg/dL) 0.2 Ur Leukocyte Esterase (NEGATIVE) NEGATIVE Urine RBC (0 - 3 RBC/HPF) 4-10 Urine WBC (0 - 3 WBC/HPF) 0-3 Ur Squamous Epith Cells (NONE SEEN /HPF) 0-5 Ur Transition Epith Cell (NONE SEEN /HPF) TRACE Urine Bacteria (NONE SEEN /HPF) NONE SEEN Urine Mucus (NONE SEEN /LPF) TRACE Microbiology: Date/Time Procedure - Status Source Growth 07/08 1814 Blood Culture - RECD BLOOD 07/08 1814 Blood Culture - RECD BLOOD Recent Impressions: RADIOLOGY - XR FOOT 3 + V LT 07/09 1919 Report Impression - Status: SIGNED Entered: 07/08/20211943 IMPRESSION: 1. No acute bony abnormalities of the left foot are detected. SL: 131 Impression By: Alexa - Kaylynn Garay M.D. Re-Evaluation MDM ED Course Medication(s) Ordered Medication(s) Ordered: Anti-Infective Agents Sig/Tate Start time Last Medication Dose Route Stop Time Status Admin Piperacillin Sod/ 3.375 GM X1ED STA 07/08 1723 DC 07/08 Tazobactam Sod IV 07/08 1752 1827 Sodium Chloride 100 ML Vancomycin HCl 1,500 MG X1ED STA 07/08 1723 DC 07/08 Sodium Chloride 500 ML IV 07/08 1852 1918 Cardiovascular Drugs Sig/Tate Start time Last Medication Dose Route Stop Time Status Admin Hydralazine HCl 10 MG Q2H PRN PRN 07/08 2115 AC IV 07/09 2001 Central Nervous System Agents Sig/Tate Start time Last Medication Dose Route Stop Time Status Admin Acetaminophen 650 MG Q4H PRN PRN 07/08 2115 AC PO 07/09 2001 Hydrocodone Bitart/ 1 TAB Q4H PRN PRN 07/08 211 5 AC Acetaminophen PO 07/09 2001 Electrolytic, Caloric, And Mirella Sig/Tate Start time Last Medication Dose Route Stop Time Status Admin Sodium Chloride 1,000 ML X1ED STA 07/08 1722 DC 07/08 IV 07/08 1723 1827 Gastrointestinal Drugs Sig/Tate Start time Last Medication Dose Route Stop Time Status Admin Ondansetron HCl 4 MG Q6H PRN PRN 07/08 2115 AC IV 07/09 2001 Patient Discharge Departure Vital Signs/Condition Vital Signs First Documented: Result Date Time Pulse Ox 98 07/08 1820 B/P 93/58 07/08 1820 B/P Mean 69 07/08 1820 O2 Delivery Room air 07/09 1819 Temp 98.2 07/08 182 Pulse 68 07/08 1820 Resp 16 07/080 Last Documented: Result Date Time B/P 116/60 07/09 1999 B/P Mean 78 07/09 1999 Pulse 78 07/09 1999 Resp 16 07/09 1999 Pulse Ox 100 07/08 1914 O2 Delivery Room air 07/08 1914 Temp 98.2 07/08 1820 All vital signs available at the time of this en try have been reviewed. Corey Soto 07/08/215: HPI-General Illness General Confirmed Patient Yes PCP [facility] ([facility]) Presentation Chief Complaint Left leg pain/swelling Hx Obtained From Patient, Daughter Onset Occurred Days ago Progression since Onset Waxes and wanes Location Lower extremity L Severity: Current Moderate Associated with Reports: Bruising, Weakness. Denies: Chest pain, Fever, Vomiting. Context Recent Healthcare Recent testing, Previous surge ry Free Text HPI Notes Free Text HPI Notes 85-year-old male presents e emergency department for evaluation of left lower leg pain and swelling. Patient underwent vascula r stenting on 06/29/2021. States his leg feels cold at times is pa inful and the family has noticed it is more swollen. Patient had an outpatient ultrasou nd yesterday that they were told showed blood flow. Patient denies any fever , nausea, vomiting. Review of Systems ROS Statements All systems rev neg except as marked. Review of Systems Constitutional Reports: Fatigue, Weakness - generalized. Denies : Fever, Lethargy. Respiratory Denies: Cough, non-productive, Cough, productive , Shortness of breath. Cardiovascular Denies: Chest pain, Palpitations, Syncope. GI Denies: Nausea, Vomiting. Musculoskeletal Reports: Extremity pain, Extremity swelling. Hematologic Reports: Bruising. Skin Reports: Swelling. Denies: Diaphoresis. Neurologic Denies: Change LOC, Headache, Syncope. Past Medical History - Adult Additional Surgical History LLE stent 06/29/21 Smoking status: Smoking status for patients 13 years old or old er: Current every day smoker Other Social History Visiting locally Physical Exam Vital Signs Review of Vital Signs Reviewed Physical Exam General/Const General/Const Awake, Alert, Well developed, Not toxic appearing Eyes Eyes PERRL, No periorbital swelling, No scleral icterus Ears/Nose/Throat Ears/Nose/Throat Airway patent, Mucous membrane s moist, No facial swelling Resp/Chest Respiratory/Chest Breath sounds NL, Breath soun ds = bilat, No respiratory distress Cardiovascular Cardiovascular Heart rate NL, Regular rhythm, H eart sounds NL Abdomen/GI Abdomen/GI Soft, Non-tender, No distention MS Lower Extrem Text/Dict Notes Clean dressing on the left lower extremity. Ther e is old ecchymosis present. The left lower extremity is warm to the touch wi th no discernible erythema. Skin Skin Warm, Dry Neurologic Neurologic Oriented X3, Speech NL, No motor def icits Interpretation Diagnostics Lab Results Interpretation Considerations Reviewed prior records Re-Evaluation MDM Re-Evaluation/Progress #1 Time of Re-Eval 2039 Re-Eval Status Improved Exam Post Tx - General Alert, Appears non-toxic Plan Post Re-Eval Plan admit Consultation Consultation Referral/Consult Name Abad Oakley MD [facility] Called Vascular surgery Call Returned Time 2054 Call Returned Date 07/08/21 [facility] Will see patient, Agrees with plan Patient Discharge Departure Vital Signs/Condition Condition Stable Clinical Impression Clinical Impression Primary Impression: Pain in left lower leg Secondary Impressions: PAD (peripheral artery di sease) Disposition Decision Admit Admit Physician Name Santiago Garcia MD Admit Physician Hospitalist )( Admission Accepts Yes )( Accepted Time 2103 )( Accepted Date 07/08/21 Discharge/Care Plan Counseled Regarding Need for admission Electronically Signed by Haris Watkins on at 2033 Electronically Signed by Corey Soto MD on 07/08 at 2111 RPT #:[id number] END OF REPORT 2021-06-30 13:44:00-00:00 [facility] Hospitalist Discharge Summary REPORT#:[id number] REPORT STATUS: Signed DATE:06/30/21 TIME: 1344 PATIENT: KAYLYNN MISTRY UNIT #: [id number] ROOM/BED: [facility] [place]26-1 : 35 AGE: 85 SEX: M ATTEND: Isrrael Martinez DO ADM AUTHOR: Sarah Rodas MD * ALL edits or amendments must be made on the [employer]/computer document * General Information Discharge date: 06/14/21 Hospital course: please ignore the discharge summary Free Text DxA P Notes Free text DxA P notes: please ignore both h and P and discharge summary , entered by mistake Med Rec Med Rec Discharge meds: Continue taking these medications: LOSARTAN (COZAAR) 100 MG TAB 100 MILLIGRAM ORAL DAILY. RIVAROXABAN (XARELTO) 20 MG TAB 20 MILLIGRAM ORAL BEDTIME. TAMSULOSIN ER (FLOMAX) 0.4 MG CAP.SR.24H 0.4 MILLIGRAM ORAL BEDTIME. amLODIPine (NORVASC) 2.5 MG TAB 5 MILLIGRAM ORAL DAILY. Qty = 30 METOPROLOL TARTRATE (LOPRESSOR) 25 MG TAB 25 MILLIGRAM ORAL BEDTIME. ASPIRIN EC (ECOTRIN) 81 MG TAB.EC 81 MILLIGRAM ORAL BEDTIME. Start taking the following new medications: CLOPIDOGREL (PLAVIX) 75 MG TAB 75 MILLIGRAM ORAL DAILY. Qty = 30 Refills = 3 Discharge Instructions PCP Discharge to: Home/Self Care Additional Discharge Routines: Attending Follow- Up, Wound/Dressing Care Diet: Resume Home Diet/Feeds Activity: No Strenuous Activity Wound/dressing care: Change dressing bibi ly, Clean wound daily, Do not submerge incision, Keep wound clean and dry, OK to shower tomorrow Follow-up Appointments Attending Physician: Attending Physician: Abad Oakley MD Attending physician follow up timeframe: In 1-2 weeks Special instructions: PLEASE CALL DR COONEY TO SCHEDULE APT Electronically Signed by Sarah Rodas MD on at 1346 RPT #:[id number] END OF REPORT 2021-06-30 09:36:00-00:00 [facility] ([facility]) Hospitalist History Physical REPORT#:[id number] REPORT STATUS: Signed DATE:06/30/21 TIME: 935 PATIENT: KAYLYNN MISTRY UNIT #: [id number] ROOM/BED: G4426-1 : 35 AGE: 85 SEX: M ATTEND: Isrrael Martinez DO ADM AUTHOR: Sarah Rodas MD * ALL edits or amendments must be made on the [employer] document * History Past medical history: Reports: Alcoholism/subst ab use, Atrial fibrillation, Hypertension, BPH, Chronic pain, Periph arterial disease. Additional surgical history: hydrocele testical Tonsillectomy hernia Repair appendicitis cyst behind ear Additional family history: not relavent to current illness Alcohol use: Alcohol use Drug use: Denies recreational drugs Smoking status: Smoking status for patients 13 years old or old er: Current every day smoker Date last smoked: 06/27/21 Packs per day: 0.5 Years smoked: 60 Pack years: 30.0 Additional social history: LIves at home alone in a [facility]. He has walkers he states but does not use it. States that he was driving as PLOF. No stairs t o enter his home. Medication/Allergy-Vaccine Hx Allergies: Coded Allergies: Iodinated Contrast Media (Intermediate, ALTERED MENTAL STATUS 06/27/21) Electronically Signed by Sarah Rodas MD on at 1344 RPT #:[id number] END OF REPORT 2021-06-29 14:09:00-00:00 [facility] ([facility]) Operative Note - Full REPORT#:[id number] REPORT STATUS: Signed DATE:06/29/21 TIME: 1409 PATIENT: KAYLYNN MISTRY UNIT #: [id number] ROOM/BED: : 35 AGE: 85 SEX: M ATTEND: Dain Oakley MD ADM AUTHOR: Abad Oakley MD * ALL edits or amendments must be made on the [employer] document * Operative Report ORM Surgeries: Surgery Date and Time: 06/29/2021 0730 Primary Procedure: LLE ARTERIOGRAM, ANGIOPLASTY , Start date: 06/29/21 Start time: 1050 Pre-procedure diagnosis: 1. Atherosclerosis of [place] ir[place] arteries bilateral lower extremities with rest pain left, ulcers Left great toe 2. 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 Percutaneous ultrasound-g uided active access right common femoral artery and left posterior tibial artery retrograde with images maintained for record [id number], [id number] 2. Abdominal aortogram 55799 3. Bilateral lower extremity arteriogram 73738 4. Left superficial femoral popliteal artery christian nt, 6 mm x 5 cm Viabahn, popliteal artery stent 6 mm x 5 cm Viaba hn with 1.4 laser atherectomy and drug coated balloon angioplasty of distal popliteal a rtery 14718 5. Left posterior tibial artery 1.4 lase r atherectomy and angioplasty with 3.0 mm. 44637 6. Left superficial femoral, popliteal a nd posterio tibial artery percutaneous pharmacomechanical thrombectomy with 6 Fr Angioj et device 82388, 59198 7. Left superfical femoral artery and popliteal tpa, alteplase, 10 mg, thrombolysis intrarterial, first day infusion 37 211 Technique/Procedure: The patient was brought into the operating room and prepped and draped in the usual sterile manner. Percut aneous ultrasound-guided active access was obtained to the right common femoral artery microcatheter system and exchanged over a Glidewire to a 6 Monegasque 10 cm sheath. An Omni Flush catheter was placed in the abdominal aorta and abdominal aortogram was perf ormed. This was then pulled down to the aortic bifurcation and Commerce wire was used to extend the Omni Flush catheter down to the left common femoral artery. Left lower extremity arteriogram was completed. At this time the selena ent was heparinized and advantage wire was placed to the occluded distal superficial femoral artery and a 6 Monegasque 65 cm sheath was advanced to the superficial femoral artery distally. Subsequently a Hargrove cross catheter was used to cross the occluded superficial femoral and popliteal arteries. The vein was acc essed tibial vessels was not able to get into true lumen antegrade fa shion. I was able to get direct access to the anterior tibial artery with distal occlus ion leg revascularization and appropriate. Therefore percutaneous ultrasound-g uided active access was obtained to the left posterior tibial ar nicanor retrograde in the distal third of the lower leg and exchanged over a access cathet er to a micropuncture sheath. The occluded posterior tibial artery, tibioperon eal trunk, popliteal arteries and superficial femoral arteries were th en crossed with a Glidewire retrograde and this was placed through the previous 6 Monegasque sheath to create a body floss. At this time a 20 cm McNama ra catheter was placed through the occluded elements of the arteries extending from the super ficial femoral artery to the posterior tibial artery and TPA thrombolysis was completed over period of 30 minutes. After completion of TPA thro mbolysis remained significant clot burden within the stent graft and outflow popliteal artery. Percut aneous thrombectomy was then completed with the 6 Monegasque AngioJet Lore vant device of the superficial femoral artery and popliteal arteries extending into the anterior tibial artery. There was residual thrombus and in timal hyperplasia with stenosis in the proximal and distal extent of the previous stent keena ts. This was treated with placement of 2 separate 6 mm x 5 cm Viabahn stent gra ft in the superficial at this time the wire was exchanged to a 0.014 run-through wire a nd 1.4 laser atherectomy was completed of the outflow pop liteal artery to the behind the below-knee portions through the proximal two thirds of the posterior tibial artery. Post angioplasty was then perform ed with a 5 mm drug-coated balloon of the popliteal artery and 3 mm balloon of the entire length of the posterior tibial artery. After completion of angioplasty extending past t he previous retrograde access there was much improved flow extending through t he posterior tibial artery to the plantar vessels with some mild spasm noted d istally. Pressure was held at the distal retrograde access site remova l of the micropuncture for hemostasis. At this time the sheath was pulled back to the r ight external iliac artery bidirectional arteriogram was completed. Angio-S eal device was then used to close the right groin arteriotomy site access wi thout difficulty. The patient tolerated the procedure well. There were no comp lications. The patient was stable on discharge to the PACU. Primary Surgeon: Dr. Abad Oakley Diet Aid(s): none Anesthesia: general anesthesia Operative findings: Abdominal radiograph demonstrates patent abdominal aorta with good flow to the celiac trunk, splenic artery, hepatic ar nicanor, gastroduodenal artery and proper hepatic arteries. The superior mesenteric artery is patent with stenosis just distal to the ostium after 2 cm to approximately 60%, focal. The remaining supra mesenteric arteries patent to all branches . The inferior mesenteric arteries not well visualized. Bilateral renal ar teries are patent with good nephrograms. The aorta is patent extending throu gh bilateral common iliac arteries. 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 Bilateral common iliac arteries are patent to bi lateral internal and external iliac arteries including the right external iliac artery stent graft. Bilateral common femoral arteries are patent and profunda femoris. The left superficial femoral artery is patent matteo n to Carroll's canal at which point is occluded just above the previously placed endograft ex tending through the stent graft to the popliteal artery to its above the knee p ortion. The remaining popliteal artery is also occluded with reconstitution of the posterior tibial artery in the mid lower leg through collaterals. There is partial reconstitution of the anterior tibial artery past the occlu jorge distally with no flow into the distal third and no dorsalis pedis noted. Plantar arteries are pa tent as main outflow to the foot. The peroneal artery is occluded with no si gnificant flow was noted. Right lower extremity arteri ogram demonstrates patent right superficial femoral artery extending to the popliteal artery and tib ioperoneal trunk and the peroneal and posterior tibial arteries. The post erior tibial artery is patent to the foot. The peroneal artery has severe sten osis throughout. No anterior tibial artery is identified. Complications: none Estimated blood loss in ml's: 300 cc Specimens removed/altered: thrombus Implant(s): stent grafts at 1419 RPT #:[id number] END OF REPORT 2021-06-29 13:56:00-00:00 [facility] Brief Op Note REPORT#:[id number] REPORT STATUS: Signed DATE:06/29/21 TIME: 1356 PATIENT: KAYLYNN MISTRY UNIT #: [id number] ROOM/BED: : 35 AGE: 85 SEX: M ATTEND: Dain Oakley MD ADM AUTHOR: Abad Oakley MD * ALL edits or amendments must be made on the [employer]/computer document * Op/Inv Proc Note - Brief ORM Surgeries: Surgery Date and Time: 06/29/2021 0730 Proposed Primary Procedure: LLE ARTERIOGRAM, AN GIOPLASTY, Pre-procedure diagnosis: 1. Atherosclerosis of [place] arteries bilateral lower extremities with rest pain left, ulcers Left great toe 2. 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 Percutaneous ultrasound-g uided active access right common femoral artery and left posterior tibial artery retrograde with images maintained for record [id number], [id number] 2. Abdominal aortogram 84181 3. Bilateral lower extremity arteriogram 79842 4. Left superficial femoral popliteal artery christian nt, 6 mm x 5 cm Viabahn, popliteal artery stent 6 mm x 5 cm Viaba hn with 1.4 laser atherectomy and drug coated balloon angioplasty of distal popliteal a rtery 97623 5. Left posterior tibial artery 1.4 lase r atherectomy and angioplasty with 3.0 mm. 80038 6. Left superficial femoral, popliteal a nd posterio tibial artery percutaneous pharmacomechanical thrombectomy with 6 Fr Angioj et device 74711, 56586 7. Left superfical femoral artery and popliteal tpa, alteplase, 10 mg, thrombolysis intrarterial, first day infusion 37 211 Primary Surgeon: Dr. Abad Oakley Diet Aid(s): none Anesthesia: general anesthesia Findings: Abdominal radiograph demonstrates patent abdominal aorta with good flow to the celiac trunk, splenic artery, hepatic ar nicanor, gastroduodenal artery and proper hepatic arteries. The superior mesenteric artery is patent with stenosis just distal to the ostium after 2 cm to approximately 60%, focal. The remaining supra mesenteric arteries patent to all branches . The inferior mesenteric arteries not well visualized. Bilateral renal ar teries are patent with good nephrograms. The aorta is patent extending throu gh bilateral common iliac arteries. 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 Bilateral common iliac arteries are patent to bi lateral internal and external iliac arteries including the right external iliac artery stent graft. Bilateral common femoral arteries are patent and profunda femoris. The left superficial femoral artery is patent matteo n to Carroll's canal at which point is occluded just above the previously placed endograft ex tending through the stent graft to the popliteal artery to its above the knee p ortion. The remaining popliteal artery is also occluded with reconstitution of the posterior tibial artery in the mid lower leg through collaterals. There is partial reconstitution of the anterior tibial artery past the occlu jorge distally with no flow into the distal third and no dorsalis pedis noted. Plantar arteries are pa tent as main outflow to the foot. The peroneal artery is occluded with no si gnificant flow was noted. Right lower extremity arteri ogram demonstrates patent right superficial femoral artery extending to the popliteal artery and tib ioperoneal trunk and the peroneal and posterior tibial arteries. The post erior tibial artery is patent to the foot. The peroneal artery has severe sten osis throughout. No anterior tibial artery is identified. Complications: none Estimated blood loss in ml's: 300 cc Specimens removed/altered: thrombus at 1419 RPT #:[id number] END OF REPORT 2021-06-29 13:54:00-00:00 [facility] ([facility]) Brief Discharge Note w/Med Rec REPORT#:[id number] REPORT STATUS: Signed DATE:06/29/21 TIME: 1354 PATIENT: KAYLYNN MISTRY UNIT #: [id number] ROOM/BED: : 35 AGE: 85 SEX: M ATTEND: Dain Oakley MD ADM AUTHOR: Abad Oakley MD * ALL edits or amendments must be made on the [employer]/computer document * Med Rec Med Rec Discharge meds: Continue taking these medications: LOSARTAN (COZAAR) 100 MG TAB 100 MILLIGRAM ORAL DAILY. RIVAROXABAN (XARELTO) 20 MG TAB 20 MILLIGRAM ORAL DAILY. TAMSULOSIN ER (FLOMAX) 0.4 MG CAP.SR.24H 0.4 MILLIGRAM ORAL DAILY. amLODIPine (NORVASC) 2.5 MG TAB 5 MILLIGRAM ORAL DAILY. Qty = 30 METOPROLOL TARTRATE (LOPRESSOR) 25 MG TAB 25 MILLIGRAM ORAL BEDTIME. ASPIRIN EC (ECOTRIN) 81 MG TAB.EC 81 MILLIGRAM ORAL DAILY. Start taking the following new medications: CLOPIDOGREL (PLAVIX) 75 MG TAB 75 MILLIGRAM ORAL DAILY. Qty = 30 Refills = 3 Objective Results Radiology data: Recent Impressions: RADIOLOGY - XR CHEST 1 V 06/29 0632 Report Impression - Status: SIGNED Entered: 06/29/2021 0736 IMPRESSION: No acute cardiopulmonary findings. Impression By: Kelsi Gibbs Brief Discharge Note w/Med Rec Discharge to: Home/Self Care Pt. condition on discharge: stable Additional Discharge Routines: Attending Follow- Up, Wound/Dressing Care Diet: Resume Home Diet/Feeds Activity: No Strenuous Activity Wound/dressing care: Change dressing bibi ly, Clean wound daily, Do not submerge incision, Keep wound clean and dry, OK to shower tomorrow Follow-up Appointments Attending Physician: Attending Physician: Abad Oakley MD Attending physician follow up timeframe: In 1-2 weeks at [facility] RPT #:[id number] END OF REPORT 2021-06-27 08:42:00-00:00 [id number] [place] [address] PATIENT NAME: KAYLYNN MISTRY ADMIT DATE: ACCOUNT NO: [id number] ROOM NO: AGE: 85 REPORT TYPE: eELECTROCARDIOGRAM REPORT SEX: M ADMITTING PHYSICIAN: ATTENDING PHYSICIAN:Abad Oakley MD Order: [id number] Test Reason : PREOP Test Date/Time Stamp: SunJun 27 2021 08:42:30 Blood Pressure : / mmHG Vent. Rate : 064 BPM Atrial Rate : 187 BPM P-R Int : 000 ms QRS Dur : 162 ms QT Int : 432 ms P-R-T Axes : 000 -69 -06 degree s QTc Int : 445 ms Atrial fibrillation Left axis deviation Right bundle branch block Possible Lateral infarct , age undetermined Inferior infarct , age undetermined Abnormal ECG When compared with ECG of 12-APR-2021 19:55, Significant changes have occurred Confirmed by MICHAEL SCHMIDT ([id number]) on 2 9:03:13 AM Referred By: Abad Oakley Confirmed by:MARCIE SCHMIDT at 0903 PATIENT NAME: KAYLYNN MISTRY 4233 2021-05-12 20:13:00-00:00 [id number] [place] [address] PATIENT NAME: KAYLYNN MISTRY ADMIT DATE: 2 ACCOUNT NO: [id number] ROOM NO: [facility] AGE: 85 REPORT TYPE: PROGRESS NOTE SEX: M ADMITTING PHYSICIAN:José Jimenez MD ATTENDING PHYSICIAN:José Jimenez MD DATE: 04/17/2021 SUBJECTIVE: No acute events. PHYSICAL EXAMINATION: VITAL SIGNS: Stable. Please see the EMR. GENERAL: No acute distress. NECK: Supple. LUNGS: Clear to auscultation bilaterally. HEART: S1, S2. Regular rate and rhythm. No murmu rs, gallops, or rubs. ABDOMEN: Positive bowel sounds. Soft, nontender, nondistended. EXTREMITIES: No clubbing, cyanosis, or edema. LABORATORY DATA: Reviewed. ASSESSMENT AND PLAN: 1. Altered mental status. MRI/MRA/echo negative. Neurology seen. LP is negative as well. 2. Episodes of unresponsiveness. Card seen, echo negative. 3. High blood pressure, blood pressure controlle d. 4. Benign prostatic hypertrophy, on Flomax. 5. Peripheral vascular disease, on Xarelto, jessica rial blood flow with blockage in the left popliteal artery, angiogram to be done on Sunday. Vascular surgery seen. 6. History of moderately heavy alcohol. Two mixe d drinks a night, thiamine, and Ativan p.r.n. 7. Deep venous thrombosis prophylaxis, on Xarelt o. 8. Continue to follow the patient's mental statu s. 9. Card, neurovascular surgery seen. 10. Follow labs. Dictated By: Ynes Baker MD WT: PN:ALEIDA/MICHELE./NTS Conf#: [id number]/DID#: [id number] Authenticated by Ynes Baker MD On 05/25/19 08:50:21 PM PATIENT NAME: KAYLYNN MISTRY 0393 at 0850 PATIENT NAME: KAYLYNN MISTRY 0393 2021-04-27 22:01:00-00:00 [id number] [address] PATIENT NAME: KAYLYNN MISTRY ADMIT DATE: 2 ACCOUNT NO: [id number] ROOM NO: G.4431 AGE: 85 REPORT TYPE: PROGRESS NOTE SEX: M ADMITTING PHYSICIAN:José Jimenez MD ATTENDING PHYSICIAN:José Jimenez MD DATE: 04/17/2021 SUBJECTIVE: No acute events. PHYSICAL EXAMINATION: VITAL SIGNS: Stable. Please see the EMR. GENERAL: No acute distress. NECK: Supple. LUNGS: Clear to auscultation bilaterally. HEART: S1 and S2. Regular rate and rhythm. No mu rmurs, gallops, or rubs. ABDOMEN: Positive bowel sounds. Soft, nontender, and nondistended. EXTREMITIES: No clubbing, cyanosis, or edema. LABORATORY DATA: Reviewed. ASSESSMENT AND PLAN: This is an 84-year-old male with peripheral vascular disease/high blood pressure/tobacco abuse, who c blaze in with the EMS after elective angiogram of the legs. 1. Altered mental status. MRI/MRA echo negative. Neuro seen. LP negative. This could be contrast-induced encephalo liliana per the daughter, because he has had this before. We will place the patient on IV fluids. 2. High blood pressure, blood pressure controlle d. 3. Benign prostatic hypertrophy, on Flomax, stab le. 4. Peripheral vascular disease, on Xarelto. Vasc ular surgery seen. Arterial blood flow with blockage in the left popliteal a rtery. We will need an angiogram. 5. History of moderately heavy alcohol use. Two mixed drinks a night. 6. Episodes of unresponsiveness. Card seen. Echo negative. 7. Follow labs. 8. Consultants: Cardiology and neurovascular ly aura seen. Dictated By: Ynes Baker MD WT: PN:ALEIDA/MICHELE. Conf#: [id number]/DID#: [id number] Authenticated by Ynes Baker MD On 05/07/19 10:59:43 PM PATIENT NAME: KAYLYNN MISTRY 0393 at 1059 PATIENT NAME: KAYLYNN MISTRY [id number] 2021-04-27 17:17:00-00:00 [facility] Progress Note REPORT#:[id number] REPORT STATUS: Signed DATE:04/27/21 TIME: 1717 PATIENT: KAYLYNN MISTRY UNIT #: [id number] ROOM/BED: 4431-1 : 35 AGE: 85 SEX: M ATTEND: José Jimenez MD ADM AUTHOR: Tammy Jerez PA-C * ALL edits or amendments must be made on the [employer]/computer document * Subjective Chief complaint: Seen in bed eating lunch. Daughtehr at t he bedside. Plan is for home with home health.No acute pain currently. Objective General VS: Vital Signs: Date Time Temp Pulse Resp B/P B/P Pulse O2 O2 F low FiO2 Mean Ox Delivery Rate 04/27 1119 98.1 84 18 136/89 104.9 96 Room air 04/27 0836 71 18 182/125 144.1 95 Room air 04/27 0605 97.9 80 16 176/109 131.1 95 04/26 2015 98.2 84 19 143/87 105.8 92 PATIENT WEIGHT: Weight (lb): 180 Weight (oz): Weight (kg): 81.647 Medications: Active Meds + DC'd Last 24 Hrs Diphenhydramine HCl (BENADRYL) 12.5 MG Q6H PRN P RN IV (DC) Amlodipine Besylate (NORVASC) 5 MG DAILY PO (DCD ) Sodium Chloride (SODIUM CHLORIDE 0.9%) 1,000 ML .Q10H IV (DCD) Lorazepam (ATIVAN) 1 MG Q6H PRN PRN IV (DCD) Sodium Chloride (SODIUM CHLORIDE) 0 ASDIR PRN IV (DCD) Metoprolol Tartrate (LOPRESSOR) 25 MG Q12HR PO ( DCD) Hydralazine HCl (APRESOLINE) 15 MG Q6H PRN PRN I V (DCD) Sterile Water (WATER FOR INJECTION) 1.2 ML ASDI R PRN IM (DCD) Folic Acid (FOLIC ACID) 1 MG DAILY PO (DCD) Losartan Potassium (COZAAR) 100 MG DAILY PO (DCD ) Multivitamins (TAB-A-FINESSE) 1 TAB DAILY PO (DCD) Tamsulosin HCl (Flomax 0.4 mg) 0.4 MG DAILY PO ( DCD) Thiamine HCl (THIAMINE HCL) 100 MG DAILY PO (DCD ) Rivaroxaban (XARELTO 20MG) 20 MG C BK PO (DCD) Acetaminophen (TYLENOL) 650 MG Q4H PRN PRN PO (D CD) Ondansetron HCl (ZOFRAN) 4 MG Q4H PRN PRN IV (DC D) Functional Progress Functional progress: 1. One on one supervision with cueing and angeli tance provided to ensure proper performance of all activities. Yes Precautions: Fall Cardiac Combative Pre- Gait Mobility Y/N: Yes Safety addressed through use of: Verbal Cues Tactile Cues Gait Belt Gait Device ROLLATOR Weightbearing: No Restriction Ambulation Distance: 10FT 70FT Progression: Forward Assistance Level: Moderate Assistance Gait Deviations: FORWARD FLEXED POSTURE STUMBLING DECR B FOOT CLEARANCE L KNEE BUCKLING Effects of Treatment: Gait quality improved Function Improved Balance Improved Post TX Precautions: In Bed, rails Up Bed Alarm Freelance Programmer/App Developer Light in Reach Nursing Notified Review Plan of Care: Yes PT charges: Gait Training 73137 Gait Cmt: UPON ARRIVAL, Pt AMBULATING W/ RN FRO M RESTROOM TO BED USING ROLLATOR. SEATED REST BREAK AT EOB. MOD A SIT<>STAND W/ ROLLATOR FOR LIFT. Pt THEN AMBULATED 70FT W/ ROLLATOR MOD A FOR STEADYING AND WC FOLLOW FOR SAFETY. L KNEE BUCKLING X3 REPS AND NOTED INCREASED FORWARD FLEXED POSTURE GAIT PROGRESSED "MY LEFT LEG IS GONNA COLLAPSE". RETURNED SUPINE SBA. LEFT SEMI-RECLINED IN BED POST. Pt CAN BE IMPULSIVE AT TIMES, REQUIRING MAX VC/TC'S FOR REDIRECTION AND SAFETY. If this is the patient's last treatment, this e ntry Start Time: 1050 Stop Time: 111 Treatment Physical Exam General appearance: alert, awake HEENT: trauma to the face an d head. Large heamtoma to the forehead on the right, ecchymosis to the face. Blurred vision with dept h perception off. MMM P. Neck: supple, no JVD Cardiovascular: regular rate rhythm, S1/S2, no m urmur Respiratory: aerating well, clear bilaterally Abdomen: bowel sounds present, non-distended, so ft, non-tender Skin: diffuse bruising to the face, right neck, Right Leg cool wit arterial chanegs. Musculoskeletal - general: Musculoskeletal - general: joints charan l, normal tone, range of motion normal , strength testing normal Neuro/HAND COLLATOR: alert, normal speech, no motor defici ts, oriented to self and hospital. He has ataxia noted with feeding and d rinking. Appeasr to have left facial droop and leaning to the left with weak c ore. Diagnosis, Assessment Plan Free Text A P: Pt with syncope with LOC and acute head trauma. He has a large frontal hematoma with diffuse facial brusing, ataxia, marc rred vision, acute encephalopathy with delerium post recent angiogram and stent . Hx of Atrial fibrillation, PAD, HTn. PLan: Pt with acute debility and noted to be meron ruddy to the left in exam with weak core. States blurred vi jorge present, but improving. PT and OT consulted. He will need aggressive rehab with close MD follow up. MINING CAPTAIN ordered due to acute head trauma. Recommend BSE for any aspiration an d cognitive evaluation. 04/22: Encehaloptahy clearing. Doing much better today. Discussed with IM. Beau markham. Discussed with his d michele at the bedside. IRF order placed. Undergoing MINING CAPTAIN evaluation. 04/25: Pt seen up walking the azam ls with nursing. He is noted towards the end of his gait starting to fatigue with legs getting weak. He is against using the RW and only wants to use his R ollator. Has a difficult time with STS after gait and requires MIN A with STS. Rehab pending. Still seems a little confused. 04/25: Pt seen up ambulating in the hallways. Res istant for rehab. 04/26: He continues to have some waxing confusion . IRF penidng approval. I do think that with his encephalopathy and a cute head trauma he would benefit from IRF and daily MD follow. Needs MINING CAPTAIN for c og evaluation and treatment along with safety awarness adressed. Vitamins all within no rmal range. 04/27: Pt insurance denied IRF. Dsicussed with Kyleigh Lane who spoke to the daughter. Planning for Home Health. Pt does have some confusion still present at times. Recommend Outpt Ne uropsych work up. Discussed with the daughter at the bedside about picking any rugs at home t o prevent tripping due to LE weakness. Also, let her know that if h ome does not work out SNF is an options for 30 days post admission. Rehab attestation: Face to face exam completed. Treatment plan disc ussed with patient and daughter. Electronically Signed by Tammy Jerez PA-C on at 1720 RPT #:[id number] END OF REPORT 2021-04-27 13:46:00-00:00 [facility] Progress Note REPORT#:[id number] REPORT STATUS: Signed DATE:04/27/21 TIME: 1346 PATIENT: KAYLYNN MSITRY UNIT #: [id number] ROOM/BED: [place] [address] : 35 AGE: 85 SEX: M ATTEND: José Jimenez MD ADM AUTHOR: Katy Jack RESEARCH GEOLOGIST * ALL edits or amendments must be made on the [employer]/computer document * Subjective Chief complaint: No acute cardiac issue Objective General VS/I O: 24 hour I O ending at 0700: 04/27 0700 04/26 1900 Intake Total 240 480 Output Total 400 Balance 240 80 Intake, Oral 240 480 Number 2 Bowel Movements Number Voids 5 Output, Urine 400 Vital Signs: Date Time Temp Pulse Resp B/P B/P Pulse O2 O2 F low FiO2 Mean Ox Delivery Rate 04/27 1119 36.7 84 18 136/89 104.9 96 Room air 04/27 0836 71 18 182/125 144.1 95 Room air 04/27 0605 36.6 80 16 176/109 131.1 95 04/26 2016 36.8 84 19 143/87 105.8 92 04/26 1602 36.6 68 16 118/79 92.4 99 Room air PATIENT WEIGHT: Weight (lb): 180 Weight (oz): Weight (kg): 81.647 Medications: Active Meds + DC'd Last 24 Hrs Diphenhydramine HCl (BENADRYL) 12.5 MG Q6H PRN P RN IV (DC) Amlodipine Besylate (NORVASC) 5 MG DAILY PO Sodium Chloride (SODIUM CHLORIDE 0.9%) 1,000 ML .Q10H IV Lorazepam (ATIVAN) 1 MG Q6H PRN PRN IV Sodium Chloride (SODIUM CHLORIDE) 0 ASDIR PRN IV Metoprolol Tartrate (LOPRESSOR) 25 MG Q12HR PO Hydralazine HCl (APRESOLINE) 15 MG Q6H PRN PRN I V Sterile Water (WATER FOR INJECTION) 1.2 ML ASDIR PRN IM Folic Acid (FOLIC ACID) 1 MG DAILY PO Losartan Potassium (COZAAR) 100 MG DAILY PO Multivitamins (TAB-A-FINESSE) 1 TAB DAILY PO Tamsulosin HCl (Flomax 0.4 mg) 0.4 MG DAILY PO Thiamine HCl (THIAMINE HCL) 100 MG DAILY PO Rivaroxaban (XARELTO 20MG) 20 MG C BK PO Acetaminophen (TYLENOL) 650 MG Q4H PRN PRN PO Ondansetron HCl (ZOFRAN) 4 MG Q4H PRN PRN IV Physical Exam General appearance: alert, awake, no acute distr ess Head/Eyes: bruise face/eyes Neck: non-tender, no JVD Cardiovascular: CV assessment: irregularly irregular Respiratory: no distress Abdomen: soft, non-tender Genitourinary: no medina Lower extremity: LE assessment: abnormal pedal pulse (L dorsalis pedis - no pulse) Neuro/HAND COLLATOR: alert, oriented X 3, normal speech Skin: poor skin turgor Psychiatry: normal affect, normal mood Results Results: no new labs Diagnosis, Assessment Plan Problem List/A P: 1. Altered mental status 2. Episode of unresponsiveness 3. PVD (peripheral vascular disease) Plan discussed with: patient, nurse Free Text DxA P Notes Free Text DxA P Notes: 84 YO male, known to Dr. Brendon smalls with PMHx of hypertension, atrial fibrillation, and PAD who presents to ED with syncopal episode and altered mental status. He had peripheral angiogram few days ago and found to have severe PAD not amenable to percutaneous intervention. We are called for further cardiac evaluation. Jennifer is a poor historian, hx provided by patient's son in-law but he himself is not familiar with patient's history. 1. Syncope of unclear etiology echocardiogram: LVEF 50-55%, normal bubble study , AV with mild to moderate stenosis MRA neck no flow-limiting stenosis MRI brain/CTH no acute stroke neuro following 2. Severe PAD/ischemic leg 04/18/21: s/p bilateral peripheral angioplasty wi th stents placement by Dr. Oakley 1. Left superficial femoral popliteal artery ath erectomy, stent, 5 mm x 15 cm Viabahn 16849 2. Left posterior tibial art marleny angioplasty with 3.0 and 2.5 mm. initial tibial vessel 04806 3. Left peroneal artery angioplasty with 2.5 mm, additonal tibial vessel 51053 4. Right external iliac stent graft 6 mm X 7.5 c m viabahn 81615 5. Left superfical femoral artery and popliteal tpa 3. Chronic atrial fibrillation - periodic RVR mo stly when agitated continue Xarelto and metoprolol tartrate 25 mg t wice daily DC telemetry - He has not been wearing his telem etry ideal candidate for watchman procedure - will gunnar hidalgo with Dr. Davies 4. Hypertension 2 high BP readings this morning, the rest are no rmotensive continue losartan 100 mg bibi ly, metoprolol tartrate 25 mg BID, and amlodipine 5 mg daily may use PRN IV hydralazine 5. Altered mental status/Behavioral disturbance - improve significantly most likely he has underlying dementia Head imaging - no acute findinds to explain beha vior known hx of heavy alcohol use psych on board doing well, encephalopathy resolved. 6. s/p Fall CT head no acute finding 7. Debility rehab consulted Okay to DC home from cardiology. Outpatient f/u with Dr. Davies in 1-2 weeks. at 1350 Electronically Signed by Antonina Day MD on at 0735 [facility] #:[id number] END OF REPORT 2021-04-27 12:06:00-00:00 [facility] ([facility]) Discharge Summary REPORT#:[id number] REPORT STATUS: Signed DATE:04/27/21 TIME: 1206 PATIENT: KAYLYNN MISTRY UNIT #: [id number] ROOM/BED: [place] [address] : 35 AGE: 85 SEX: M ATTEND: José Jimenez MD ADM AUTHOR: Marlo Martinez DO * ALL edits or amendments must be made on the el [employer]/computer document * PCP PCP PCP: PCP: Mamadou Leigh MD General Information Free Text A P: 84 y/o with PVD/HTN/tobacco abuse who presents with AMS after elective angiogram of his legs. 1. ACUTE DELIRIUM (DT)/METAB ENCEPHALOPA THY (ALCOHOL INDUCED- 2 SHOTS WHISKEY/ DAY) - NOW NL MS, MRI/MRA/Echo negative. Neuro/P SYCH seen. LP negative, OFF SEDATIVE, D/C ATIVAN PRN 2. FALLS/Episode of unresponsiveness - cards see n. Echo negative 3. HTN (hypertension) - cont home losartan 4. BPH (benign prostatic hyperplasia) - on floma x 5. PVD (peripheral vascular disease), S/P ATHRECTOMY/T-PA - on Xarelto. arterial blood flow with blockage in the left popliteal artery, NOTIFY DR. OAKLEY OF POOR CIRCULATION 6. h/o moderately heavy etoh - 2 mixed d rinks a night. thiamine and PRN ativan 7. UNLIKELY contrast induced encephalopathy - MORE LIKEYLY DT, DAUGHTER REQUESTS A TRIAL OF STEROID X1 DEBILITY - REHAB SEEN, FOR IRF EVAL DVT prophylaxis - ON XARELTO FOR PVD Date of admission: Observation Start Date: Date of admission: 04/12/21 Discharge date: 04/27/21 Hospital course: 84-year-old male with a h/o of BPH/PVD/HTN/tobacco abuse who presents to the ED accompanied by daughter who reports patient has been altered intermittently since 10 pm SUNDAY night aft er having an "unresponsive episode for 10 minutes". The patient on SUNDAY had a cardio angiogram and leg procedure in which they found 100% blockage to the l eft leg, states patient was fine and was discharged home that same day and reports at approximately 10 PM patient became unresponsive, not answering questions, breathing hard, looked boggs, states patient began to wake up whe n EMS arrived on scene and was alert andoriented x4 and refused transport. Daughter reports they spo ke with slat basket maker that completed procedure yesterday outpatient Kyle Holt and was told to come to ED for further evaluation an d need for admission to have a balloon placed to the left leg d/t blockage. Daughter reports intermit tently today patient is disoriented, gives examples as attempted to put towel on thinking it was pants, attempted to turn flashlight on using his walker. Daughter also reports patient has been off of blood thinne rs since 04/08 for angiogram procedure is supposed to restart tonight, also has pressure dressing to t he right wrist from angiogram that is supposed to be remov ed tonight. Reports pt has been on xarleto for last month. Patient is alert and oriented x4 on exam, denies any chest pain, shortness of breath, headach e, dizziness, fever, chills, sore throat, congestion , abdominal pain. Daughter reports patient has p roblems with incontinence and is becoming worse. Reports other past me dical hx of HTN, chronic back pain. CT of the head showed no bleeding. and CTA of the c hest showed no PE. Neurology and psychiatry consulted due to acute delirium. Patient resumed on home medication for hypertension and BPH. Vascul ar skin surgery consulted due to peripheral vascular disease. Arterial Dopplers with evidence of blockage in the left popliteal artery. Patient on Xarelto. P T/OT/PMR consulted due to debility. Initially planned for inpatien t rehab, however patient was declined. Spoke with family, and consulted patient case manager [facility]. Patient was discharged home and advised to follow-up outpati ent with PCP and specialists. Consultants: cardiology, neurology, physiatry, p sychiatry, vascular surgery Pt. condition on discharge: improved Allergies: Allergies: No Known Allergies (Coded, 04/12/21) Med Rec Med Rec Discharge meds: Continue taking these medications: LOSARTAN (COZAAR) 100 MG TAB 100 MILLIGRAM ORAL DAILY. RIVAROXABAN (XARELTO) 20 MG TAB 20 MILLIGRAM ORAL DAILY. TAMSULOSIN ER (FLOMAX) 0.4 MG CAP.SR.24H 0.4 MILLIGRAM ORAL DAILY. Start taking the following new medications: METOPROLOL TARTRATE (LOPRESSOR) 25 MG TAB 25 MILLIGRAM ORAL EVERY 12 HOURS. Qty = 60 No Refills amLODIPine (NORVASC) 2.5 MG TAB 5 MILLIGRAM ORAL DAILY. Qty = 30 No Refills Objective VS/I O Last Documented: Result Date Time Pulse Ox 96 04/27 1119 B/P 136/89 04/27 1119 B/P Mean 104.9 04/27 1119 O2 Delivery Room air 04/27 1119 Temp 98.1 04/27 1119 Pulse 84 04/27 1119 Resp 18 04/27 1119 O2 Flow Rate 2 04/25 0453 FiO2 21 04/14 0830 24 hour I O ending at 0700: 04/28 0700 04/27 1900 Intake Total 420 Output Total 240 Balance 180 Intake, Oral 420 Output, Urine 240 PATIENT WEIGHT: Weight (lb): 180 Weight (oz): Weight (kg): 81.647 Results Results: labs reviewed, vital signs reviewed Free Text Obj Notes Free Text Obj Notes: General appearance: alert, awake, oriented Head/Eyes: RACCOON EYES/ECCHYMOSIS OF FACE ENT: normal ear left, normal ear right, normal n ose Neck: no JVD Cardiovascular: normal heart sounds, regular rat e rhythm Respiratory: aerating well, clear to auscultatio n, symmetric expansion, no distress Abdomen: non-tender, normal bowel sounds, soft, no distention Extremities: no edema Musculoskeletal: muscle wasting Neuro/HAND COLLATOR: altered mental status, disoriented, a lert, normal speech Skin: bruising on the face under the eyes Psychiatry: anxious Discharge Instructions PCP PCP: PCP: Mamadou Leigh MD )( Follow up labs, proc, tx: FOLLOW UP OUTPATIENT WITH NEUROPSYCH WEAR KNEE HIGH COMPRESSION STOCKINGS FOR LEG SW ELLING )( Discharge to: Home Health wPlan of Care Discharge Instructions Additional Discharge Routines: PCP Follow-Up, Co nsultant Follow-Up, F/U Labs/ Procedures )( Diet: Cardiac )( Activity: As Tolerated Discharge management: greater than 30 mins, face to face encounter Time spent: >50% spent on counseling/coordination of care: yes Follow-up Appointments PCP follow up: PCP: Mamadou Leigh MD PCP follow up timeframe: In 1-2 weeks Consulting provider 1: Provider 1: Abad Oakley MD Specialty: Vascular Surgery Consult follow up timeframe: In 1-2 weeks Consulting provider 2: Provider 2: Joao Abbott MD Specialty: Behavioral Health Follow up timeframe: In 1-2 weeks Consulting provider 3: Provider 3: Michael Schmidt MD Specialty: Cardiology Follow up timeframe: In 1-2 weeks Quality: Discharge Advanced Care Plan 65 or Older Discussed with: patient, surrogate decis. maker Current Medications Current medication review: I attest that the foregoing medication list in t he medical record is true, accurate, and complete to the best of my knowled ge. at 1609 RPT #:[id number] END OF REPORT 2021-04-26 11:32:00-00:00 [facility] Hospitalist Progress Note REPORT#:[id number] REPORT STATUS: Signed DATE:04/26/21 TIME: 1132 PATIENT: KAYLYNN MISTRY UNIT #: [id number] ROOM/BED: [address] : 35 AGE: 85 SEX: M ATTEND: José Jimenez MD ADM AUTHOR: Marlo Martinez DO * ALL edits or amendments must be made on the [employer]/computer document * Subjective Chief complaint: Patient seen and examined, no new complaints Objective General VS/I O: Vital Signs: Date Time Temp Pulse Resp B/P B/P Pulse O2 O2 Flow FiO2 Mean Ox Delivery Rate 04/26 1117 98.4 54 17 94/56 69.0 97 Nasal cannula 04/26 0727 98.2 69 14 144/90 108.2 97 Nasal cannula 04/26 0438 98.4 71 18 144/78 99.8 93 Room air 04/26 0009 98.4 72 18 123/78 92.7 100 Room air 04/25 2007 97.3 68 17 166/92 116.6 99 Room air 04/25 1806 98.4 70 12 134/68 90.4 98 Room air 24 hour I O ending at 0700: 04/26 0700 04/25 1900 Intake Total 1400.00 Output Total 100 Balance 1300.00 Intake, IV 600.00 Intake, Oral 800 Number Voids 2 3 Output, Urine 100 PATIENT WEIGHT: Weight (lb): 180 Weight (oz): Weight (kg): 81.647 Physical Exam General appearance: alert, awake, oriented Head/Eyes: RACCOON EYES/ECCHYMOSIS OF FACE ENT: normal ear left, normal ear right, normal n ose Neck: no JVD Cardiovascular: normal heart sounds, regular rat e rhythm Respiratory: aerating well, clear to auscultatio n, symmetric expansion, no distress Abdomen: non-tender, normal bowel sounds, soft, no distention Extremities: no edema Musculoskeletal: muscle wasting Neuro/HAND COLLATOR: altered mental status, disoriented, a lert, normal speech Skin: bruising on the face under the eyes Psychiatry: anxious Diagnosis, Assessment Plan Free Text DxA P Notes Free text DxA P notes: 84 y/o with PVD/HTN/tobacco abuse who presents with AMS after elective angiogram of his legs. 1. ACUTE DELIRIUM (DT)/METAB ENCEPHALOPA THY (ALCOHOL INDUCED- 2 SHOTS WHISKEY/ DAY) - NOW NL MS, MRI/MRA/Echo negative. Neuro/P SYCH seen. LP negative, OFF SEDATIVE, D/C ATIVAN PRN 2. FALLS/Episode of unresponsiveness - cards see n. Echo negative 3. HTN (hypertension) - cont home losartan 4. BPH (benign prostatic hyperplasia) - on floma x 5. PVD (peripheral vascular disease), S/P ATHRECTOMY/T-PA - on Xarelto. arterial blood flow with blockage in the left popliteal artery, NOTIFY DR. OAKLEY OF POOR CIRCULATION 6. h/o moderately heavy etoh - 2 mixed d rinks a night. thiamine and PRN ativan 7. UNLIKELY contrast induced encephalopathy - MORE LIKEYLY DT, DAUGHTER REQUESTS A TRIAL OF STEROID X1 DEBILITY - REHAB SEEN, CM FOR IRF EVAL DVT prophylaxis - ON XARELTO FOR PVD Disposition: Plan for inpatient rehab, await ins urance authorization Quality: Gen Med Crit Care Advanced Care Plan 65 or Older Discussed with: patient, surrogate decis. maker Discussion included: living will, power of attor mavis at 1133 RPT #:[id number] END OF REPORT 2021-04-26 09:08:00-00:00 [facility] Cardiology Progress Note REPORT#:[id number] REPORT STATUS: Signed DATE:04/26/21 TIME: 907 PATIENT: KAYLYNN MISTRY UNIT #: [id number] ROOM/BED: [place] [address] : 35 AGE: 85 SEX: M ATTEND: José Jimenez MD ADM AUTHOR: Katy Jack RESEARCH GEOLOGIST * ALL edits or amendments must be made on the [employer]/computer document * Subjective Patient reports: No: complaints. Objective General VS/I O: 24 hour I O ending at 0700: 04/26 0700 04/25 1900 Intake Total 1400.00 Output Total 100 Balance 1300.00 Intake, IV 600.00 Intake, Oral 800 Number Voids 2 3 Output, Urine 100 Vital Signs: Date Time Temp Pulse Resp B/P B/P Pulse O2 O2 Flow FiO2 Mean Ox Delivery Rate 04/26 726 36.8 69 14 144/90 108.2 97 Nasal cannula 04/26 0438 36.9 71 18 144/78 99.8 93 Room air 04/26 0009 36.9 72 18 123/78 92.7 100 Room air 04/25 2007 36.3 68 17 166/92 116.6 99 Room air 04/25 1805 36.9 70 12 134/68 90.4 98 Room air PATIENT WEIGHT: Weight (lb): 180 Weight (oz): Weight (kg): 81.647 Medications: Active Meds + DC'd Last 24 Hrs Diphenhydramine HCl (BENADRYL) 25 MG ONCE ONE IV (CAN) Diphenhydramine HCl (BENADRYL) 12.5 MG Q6H PRN P RN IV Famotidine (PEPCID) 20 MG ONCE ONE IV (DC) Amlodipine Besylate (NORVASC) 5 MG DAILY PO Sterile Water (WATER FOR INJECTION) 1.2 ML ASDIR PRN IM (DC) Ziprasidone (GEODON 20MG VIAL) 10 MG Q12H PRN NM N IM (DC) Sodium Chloride (SODIUM CHLORIDE 0.9%) 1,000 ML .Q10H IV Lorazepam (ATIVAN) 1 MG Q6H PRN PRN IV Sodium Chloride (SODIUM CHLORIDE) 0 ASDIR PRN IV Metoprolol Tartrate (LOPRESSOR) 25 MG Q12HR PO Hydralazine HCl (APRESOLINE) 15 MG Q6H PRN PRN I V Sterile Water (WATER FOR INJECTION) 1.2 ML ASDIR PRN IM Folic Acid (FOLIC ACID) 1 MG DAILY PO Losartan Potassium (COZAAR) 100 MG DAILY PO Multivitamins (TAB-A-FINESSE) 1 TAB DAILY PO Tamsulosin HCl (Flomax 0.4 mg) 0.4 MG DAILY PO Thiamine HCl (THIAMINE HCL) 100 MG DAILY PO Rivaroxaban (XARELTO 20MG) 20 MG C BK PO Acetaminophen (TYLENOL) 650 MG Q4H PRN PRN PO Ondansetron HCl (ZOFRAN) 4 MG Q4H PRN PRN IV Physical Exam General appearance: alert, awake, no acute distr ess, pleasant, conversational Head/Eyes: bruise face/eyes Neck: non-tender, no JVD Cardiovascular: CV assessment: irregularly irregular Respiratory: no distress Abdomen: soft, non-tender Genitourinary: no medina Lower extremity: LE assessment: abnormal pedal pulse (L dorsalis pedis - no pulse) Neuro/HAND COLLATOR: alert, oriented X 3, normal speech Skin: poor skin turgor Psychiatry: normal affect, normal mood Diagnosis, Assessment Plan Plan discussed with: patient, nurse Free Text DxA P Notes Free Text DxA P Notes: 84 YO male, known to Dr. Brendon smalls with PMHx of hypertension, atrial fibrillation, and PAD who presents to ED with syncopal episode and altered mental status. He had peripheral angiogram few days ago and found to have severe PAD not amenable to percutaneous intervention. We are called for further cardiac evaluation. Jennifer is a poor historian, hx provided by patient's son in-law but he himself is not familiar with patient's history. 1. Syncope of unclear etiology echocardiogram: LVEF 50-55%, normal bubble study , AV with mild to moderate stenosis MRA neck no flow-limiting stenosis MRI brain/CTH no acute stroke neuro following 2. Severe PAD/ischemic leg 04/18/21: s/p bilateral peripheral angioplasty wi th stents placement by Dr. Oakley 1. Left superficial femoral popliteal artery ath erectomy, stent, 5 mm x 15 cm Viabahn 31609 2. Left posterior tibial art marleny angioplasty with 3.0 and 2.5 mm. initial tibial vessel 13397 3. Left peroneal artery angioplasty with 2.5 mm, additonal tibial vessel 96744 4. Right external iliac stent graft 6 mm X 7.5 c m viabahn 65730 5. Left superfical femoral artery and popliteal tpa 3. Chronic atrial fibrillation - periodic RVR mo stly when agitated continue Xarelto and metoprolol tartrate 25 mg t wice daily DC telemetry - He has not been wearing his telem etry ideal candidate for watchman procedure - will gunnar hidalgo with Dr. Davies 4. Hypertension BP normotensive continue losartan 100 mg bibi ly, metoprolol tartrate 25 mg BID, and amlodipine 5 mg daily may use PRN IV hydralazine 5. Altered mental status/Behavioral disturbance - improve significantly most likely he has underlying dementia Head imaging - no acute findinds to explain beha vior known hx of heavy alcohol use psych on board doing well, encephalopathy resolved. 6. s/p Fall CT head no acute finding 7. Debility rehab consulted Inpt rehab pending insurance authorization. at 1241 Electronically Signed by Antonina Day MD on at 0713 RPT #:[id number] END OF REPORT 2021-04-26 07:52:00-00:00 [facility] ([facility]) Rehab Progress Note REPORT#:[id number] REPORT STATUS: Signed DATE:04/26/21 TIME: 751 PATIENT: KAYLYNN MISTRY UNIT #: [id number] [address]BED: [address] : 35 AGE: 85 SEX: M ATTEND: José Jimenez MD ADM AUTHOR: Tammy Jerez PA-C * ALL edits or amendments must be made on the [employer]/computer document * Subjective Chief complaint: Pt seen and examined in bed. Appears comfortable. Still does seem confused about his situation and drifts to different topics dur ing questions. Requires re attension to topic/question. Objective General VS: Vital Signs: Date Time Temp Pulse Resp B/P B/P Pulse O2 O2 F low FiO2 Mean Ox Delivery Rate 04/26 07 98.2 69 14 144/90 108.2 97 Nasal cannula 04/26 0438 98.4 71 18 144/78 99.8 93 Room air 04/26 0009 98.4 72 18 123/78 92.7 100 Room air 04/25 2007 97.3 68 17 166/92 116.6 99 Room air 04/25 1806 98.4 70 12 134/68 90.4 98 Room air 04/25 0828 98.4 80 12 111/74 86.0 90 Room air PATIENT WEIGHT: Weight (lb): 180 Weight (oz): Weight (kg): 81.647 Medications: Active Meds + DC'd Last 24 Hrs Diphenhydramine HCl (BENADRYL) 25 MG ONCE ONE IV (CAN) Diphenhydramine HCl (BENADRYL) 12.5 MG Q6H PRN P RN IV Famotidine (PEPCID) 20 MG ONCE ONE IV (DC) Amlodipine Besylate (NORVASC) 5 MG DAILY PO Sterile Water (WATER FOR INJECTION) 1.2 ML ASDIR PRN IM (DC) Ziprasidone (GEODON 20MG VIAL) 10 MG Q12H PRN NM N IM (DC) Sodium Chloride (SODIUM CHLORIDE 0.9%) 1,000 ML .Q10H IV Lorazepam (ATIVAN) 1 MG Q6H PRN PRN IV Sodium Chloride (SODIUM CHLORIDE) 0 ASDIR PRN IV Metoprolol Tartrate (LOPRESSOR) 25 MG Q12HR PO Hydralazine HCl (APRESOLINE) 15 MG Q6H PRN PRN I V Sterile Water (WATER FOR INJECTION) 1.2 ML ASDIR PRN IM Folic Acid (FOLIC ACID) 1 MG DAILY PO Losartan Potassium (COZAAR) 100 MG DAILY PO Multivitamins (TAB-A-FINESSE) 1 TAB DAILY PO Tamsulosin HCl (Flomax 0.4 mg) 0.4 MG DAILY PO Thiamine HCl (THIAMINE HCL) 100 MG DAILY PO Rivaroxaban (XARELTO 20MG) 20 MG C BK PO Acetaminophen (TYLENOL) 650 MG Q4H PRN PRN PO Ondansetron HCl (ZOFRAN) 4 MG Q4H PRN PRN IV Functional Progress Functional progress: 1. One on one supervision with cueing and angeli tance provided to ensure proper performance of all activities. Yes Precautions: Fall Cardiac Combative Pre- Gait Mobility Y/N: Yes Safety addressed through use of: Gait Belt Verbal Cues Gait Device ROLLING WALKER ROLLATOR Weightbearing: No Restriction Ambulation Distance: 100FT W/ ROLLATOR 20FT W/ RW Progression: Forward Assistance Level: Minimal Assistance Gait Deviations: NARROW HANNA FORWARD FLEXED POSTURE STUMBLING DECR B FOOT CLEARANCE Effects of Treatment: Gait quality improved Function Improved Balance Improved Post TX Precautions: In Bed, rails Up Bed Alarm Freelance Programmer/App Developer Light in Reach Family/Sitter at Bedside Nursing Notified Review Plan of Care: Yes PT charges: Gait Training 52271 Gait Cmt: CAN BE IMPULSIVE. MOD A SUPINE>SIT FO R PUMP OPERATOR BYPRODUCTS TRUNK LIFT W/ HOB FLAT. MOD A SIT<>STAND W/ ROLLATOR AND RW X6 REPS DURING SESSION, ASSIST W/ LIFT. AMBULATED 100FT W/ ROLLATOR MIN A, FREQUENTLY STUMBLING OVER FEET. VC'S FOR INCREASING CLEARANCE "DON'T PULL ON ME!" Pt THE AMBULATED 20FT W/ RW INSIDE ROOM MIN A. MAX VC'S FOR RW PROXIMITY AN D SAFETY. Pt STATES THAT HE DOES NOT LIKE THE RW , BUT BOTH Pt AND DTR EDUCATED ON RW>ROLLATOR FOR SAFETY. LEFT SITTING ON RECLINER W/ LUNCH TRAY SETUP, DTR AT BEDSIDE, AND RN YOAN MADE AWARE. If this is the patient's last treatment, this e ntry Start Time: 1155 Stop Time: 1220 Treatment Time : ( minutes) 0:25 Completed by: Ilana Patel Conference/Supervising PT: Yes Supervising Therapist: 2 Joanie Nickerson . BED MOBILITY: Yes Rolling Right/Left: Supervision or Set-up Physical Exam General appearance: alert, awake, no acute distr ess, no respiratory distress HEENT: trauma to the face an d head. Large heamtoma to the forehead on the right, ecchymosis to the face. Blurred vision with dept h perception off. MMM P. Neck: supple, no JVD Cardiovascular: regular rate rhythm, S1/S2, no m urmur Respiratory: aerating well, clear bilaterally Abdomen: bowel sounds present, non-distended, so ft, non-tender Skin: diffuse bruising to the face, right neck, Right Leg cool wit arterial chanegs. Musculoskeletal - general: Musculoskeletal - general: joints charan l, normal tone, range of motion normal , strength testing normal Neuro/HAND COLLATOR: alert, normal speech, no motor defici ts, oriented to self and hospital. He has ataxia noted with feeding and d rinking. Appeasr to have left facial droop and leaning to the left with weak c ore. Diagnosis, Assessment Plan Free Text A P: Pt with syncope with LOC and acute head trauma. He has a large frontal hematoma with diffuse facial brusing, ataxia, marc rred vision, acute encephalopathy with delerium post recent angiogram and stent . Hx of Atrial fibrillation, PAD, HTn. PLan: Pt with acute debility and noted to be meron ruddy to the left in exam with weak core. States blurred vi jorge present, but improving. PT and OT consulted. He will need aggressive rehab with close MD follow up. MINING CAPTAIN ordered due to acute head trauma. Recommend BSE for any aspiration an d cognitive evaluation. 04/22: Encehaloptahy clearing. Doing much better today. Discussed with IM. Beau markham. Discussed with his terrell bautista at the bedside. IRF order placed. Undergoing MINING CAPTAIN evaluation. 04/25: Pt seen up walking the azam ls with nursing. He is noted towards the end of his gait starting to fatigue with legs getting weak. He is against using the RW and only wants to use his R ollator. Has a difficult time with STS after gait and requires MIN A with STS. Rehab pending. Still seems a little confused. 04/25: Pt seen up ambulating in the hallways. Res istant for rehab. 04/26: He continues to have some waxing confusion . IRF penidng approval. I do think that with his encephalopathy and a cute head trauma he would benefit from IRF and daily MD follow. Needs MINING CAPTAIN for c og evaluation and treatment along with safety awarness adressed. Vitamins all within no rmal range. Rehab attestation: Face to face exam completed. Treatment plan disc ussed with patient. Electronically Signed by Tammy Jerez PA-C on at 1135 RPT #:[id number] END OF REPORT 2021-04-25 13:25:00-00:00 [facility] Cardiology Progress Note REPORT#:[id number] REPORT STATUS: Signed DATE:04/25/21 TIME: 1325 PATIENT: KAYLYNN MISTRY UNIT #: [id number] ROOM/BED: [place] [address] : 35 AGE: 85 SEX: M ATTEND: José Jimenez MD ADM AUTHOR: Katy Jack AGA RESEARCH GEOLOGIST * ALL edits or amendments must be made on the [employer]/computer document * Katy Jack 04/25/21 1325: Subjective Chief Complaint: Awake, alert, oriented, able to engage in conver sation Objective General VS/I O: 24 hour I O ending at 0700: 04/25 0700 04/24 1900 Intake Total 250 420 Output Total 200 Balance 250 220 Intake, Oral 250 420 Number 1 Bowel Movements Output, Urine 200 Vital Signs: Date Time Temp Pulse Resp B/P B/P Pulse O2 O2 F low FiO2 Mean Ox Delivery Rate 04/25 827 36.9 80 12 111/74 86.0 90 Room air 04/25 045 36.5 66 16 131/83 99.0 96 Nasal 2 cannula 04/25 0008 36.9 72 18 125/81 95.6 96 Room air 04/24 2130 Nasal 2 cannula 04/24 2026 36.5 62 16 112/65 0.0 100 Room air 04/24 1604 36.5 94 12 126/85 98.7 PATIENT WEIGHT: Weight (lb): 180 Weight (oz): Weight (kg): 81.647 Medications: Active Meds + DC'd Last 24 Hrs Amlodipine Besylate (NORVASC) 5 MG DAILY PO Sterile Water (WATER FOR INJECTION) 1.2 ML ASDIR PRN IM Ziprasidone (GEODON 20MG VIAL) 10 MG Q12H PRN NM N IM Sodium Chloride (SODIUM CHLORIDE 0.9%) 1,000 ML .Q10H IV Lorazepam (ATIVAN) 1 MG Q6H PRN PRN IV Sodium Chloride (SODIUM CHLORIDE) 0 ASDIR PRN IV Metoprolol Tartrate (LOPRESSOR) 25 MG Q12HR PO Hydralazine HCl (APRESOLINE) 15 MG Q6H PRN PRN I V Sterile Water (WATER FOR INJECTION) 1.2 ML ASDIR PRN IM Folic Acid (FOLIC ACID) 1 MG DAILY PO Losartan Potassium (COZAAR) 100 MG DAILY PO Multivitamins (TAB-A-FINESSE) 1 TAB DAILY PO Tamsulosin HCl (Flomax 0.4 mg) 0.4 MG DAILY PO Thiamine HCl (THIAMINE HCL) 100 MG DAILY PO Rivaroxaban (XARELTO 20MG) 20 MG C BK PO Acetaminophen (TYLENOL) 650 MG Q4H PRN PRN PO Ondansetron HCl (ZOFRAN) 4 MG Q4H PRN PRN IV Physical Exam General appearance: alert, awake, no acute distr ess, pleasant, conversational Head/Eyes: bruise face/eyes Neck: non-tender, no JVD Cardiovascular: CV assessment: irregularly irregular Respiratory: no distress Abdomen: soft, non-tender Genitourinary: no medina Lower extremity: LE assessment: abnormal pedal pulse (L dorsalis pedis - no pulse) Neuro/HAND COLLATOR: alert, oriented X 3, normal speech Skin: poor skin turgor Psychiatry: normal affect, normal mood Results Results: no new labs, vital signs stable Diagnosis, Assessment Plan Problem List/A P: 1. Altered mental status 2. Episode of unresponsiveness 3. PVD (peripheral vascular disease) Plan discussed with: patient Free Text DxA P Notes Free Text DxA P Notes: 84 YO male, known to Dr. Brendon smalls with PMHx of hypertension, atrial fibrillation, and PAD who presents to ED with syncopal episode and altered mental status. He had peripheral angiogram few days ago and found to have severe PAD not amenable to percutaneous intervention. We are called for further cardiac evaluation. Jennifer is a poor historian, hx provided by patient's son in-law but he himself is not familiar with patient's history. 1. Syncope of unclear etiology echocardiogram: LVEF 50-55%, normal bubble study , AV with mild to moderate stenosis MRA neck no flow-limiting stenosis MRI brain/CTH no acute stroke neuro following 2. Severe PAD/ischemic leg 04/18/21: s/p bilateral peripheral angioplasty wi th stents placement by Dr. Oakley 1. Left superficial femoral popliteal artery ath erectomy, stent, 5 mm x 15 cm Viabahn [id number] 2. Left posterior tibial art marleny angioplasty with 3.0 and 2.5 mm. initial tibial vessel 52164 3. Left peroneal artery angioplasty with 2.5 mm, additonal tibial vessel 33469 4. Right external iliac stent graft 6 mm X 7.5 c m viabahn 75826 5. Left superfical femoral artery and popliteal tpa 3. Chronic atrial fibrillation - periodic RVR mo stly when agitated continue Xarelto and metoprolol tartrate 25 mg t wice daily DC telemetry - He has not been wearing his telem etry ideal candidate for watchman procedure - will gunnar hidalgo with Dr. Davies 4. Hypertension BP normotensive continue losartan 100 mg bibi ly, metoprolol tartrate 25 mg BID, and amlodipine 5 mg daily may use PRN IV hydralazine 5. Altered mental status/Behavioral disturbance - improve significantly most likely he has underlying dementia Head imaging - no acute findinds to explain beha vior known hx of heavy alcohol use psych on board 04/25 - awake, alert, and oriented 6. s/p Fall CT head no acute finding 7. Debility rehab consulted Discharge planning per attending and other consu lts. Antonina Day 04/25/21 2012: Attestations Physician Attestation Agree w/findings plan: I have seen and examined the pt, I Agree with e findings and plan as documented by Katy Jack. at 1329 Electronically Signed by Antonina Day MD on at 2011 RPT #:[id number] END OF REPORT 2021-04-25 13:23:00-00:00 [facility] ([facility]) Hospitalist Progress Note REPORT#:[id number] REPORT STATUS: Signed DATE:04/25/21 TIME: 1323 PATIENT: KAYLYNN MISTRY UNIT #: [id number] ROOM/BED: [place] [address] : 35 AGE: 85 SEX: M ATTEND: José Jimenez MD ADM AUTHOR: Marlo Martinez DO * ALL edits or amendments must be made on the [employer] document * Subjective Chief Complaint: [facility] seen and [facility] with [facility] All questions answered Objective General VS/I O: Vital Signs: Date Time Temp Pulse Resp B/P B/P Pulse O2 O2 F low FiO2 Mean Ox Delivery Rate 04/25 0828 98.4 80 12 111/74 86.0 90 Room air 04/25 0453 97.7 66 16 131/83 99.0 96 Nasal 2 cannula 04/25 0008 98.4 72 18 125/81 95.6 96 Room air 04/24 2130 Nasal 2 cannula 04/24 2026 97.7 62 16 112/65 0.0 100 Room air 04/24 1604 97.7 94 12 126/85 98.7 24 hour I O ending at 0700: 04/25 0700 04/24 1900 Intake Total 250 420 Output Total 200 Balance 250 220 Intake, Oral 250 420 Number 1 Bowel Movements Output, Urine 200 PATIENT WEIGHT: Weight (lb): 180 Weight (oz): Weight (kg): 81.647 Physical Exam General appearance: alert, awake, oriented Head/Eyes: RACCOON EYES/ECCHYMOSIS OF FACE ENT: normal ear left, normal ear right, normal n ose Neck: no JVD Cardiovascular: normal heart sounds, regular rat e rhythm Respiratory: aerating well, clear to auscultatio n, symmetric expansion, no distress Abdomen: non-tender, normal bowel sounds, soft, no distention Extremities: no edema Musculoskeletal: muscle wasting Neuro/HAND COLLATOR: altered mental status, disoriented, a lert, normal speech Skin: bruising on the face under the eyes Psychiatry: anxious Diagnosis, Assessment Plan Free Text DxA P Notes Free text DxA P notes: 84 y/o with PVD/HTN/tobacco abuse who presents with AMS after elective angiogram of his legs. 1. ACUTE DELIRIUM (DT)/METAB ENCEPHALOPA THY (ALCOHOL INDUCED- 2 SHOTS WHISKEY/ DAY) - NOW NL MS, MRI/MRA/Echo negative. Neuro/P SYCH seen. LP negative, OFF SEDATIVE, D/C ATIVAN PRN 2. FALLS/Episode of unresponsiveness - cards see n. Echo negative 3. HTN (hypertension) - cont home losartan 4. BPH (benign prostatic hyperplasia) - on floma x 5. PVD (peripheral vascular disease), S/P ATHRECTOMY/T-PA - on Xarelto. arterial blood flow with blockage in the left popliteal artery, NOTIFY DR. OAKLEY OF POOR CIRCULATION 6. h/o moderately heavy etoh - 2 mixed d rinks a night. thiamine and PRN ativan 7. UNLIKELY contrast induced encephalopathy - MORE LIKEYLY DT, DAUGHTER REQUESTS A TRIAL OF STEROID X1 DEBILITY - REHAB SEEN, CM FOR IRF EVAL DVT prophylaxis - ON XARELTO FOR PVD Disposition: Plan for inpatient rehab, await ins urance authorization Quality: Gen Med Crit Care Advanced Care Plan 65 or Older Discussed with: patient, surrogate decis. maker Discussion included: living will, power of attor mavis at 1325 RPT #:[id number] END OF REPORT 2021-04-25 12:52:00-00:00 [facility] Rehab Progress Note REPORT#:[id number] REPORT STATUS: Signed DATE:04/25/21 TIME: 1252 PATIENT: KAYLYNN MISTRY UNIT #: [id number] ROOM/BED: [place] [address] : 35 AGE: 85 SEX: M ATTEND: José Jimenez MD ADM AUTHOR: Tammy Jerez PA-C * ALL edits or amendments must be made on the el [employer]/computer document * Subjective Chief complaint: Pt seen and examined in the hallway with the zohra cottrell. He is up walking the [place] using his rollator. He states that he legs are w eak, but is motivated about getting up and walking. He s tates that rehab ended up sending him to rehab last time. Daughter states that he is being argumenta tive today. Objective General VS: Vital Signs: Date Time Temp Pulse Resp B/P B/P Pulse O2 O2 F low FiO2 Mean Ox Delivery Rate 04/25 0828 98.4 80 12 111/74 86.0 90 Room air 04/25 0453 97.7 66 16 131/83 99.0 96 Nasal 2 cannula 04/25 0008 98.4 72 18 125/81 95.6 96 Room air 04/24 2130 Nasal 2 cannula 04/24 2026 97.7 62 16 112/65 0.0 100 Room air 04/24 1604 97.7 94 12 126/85 98.7 PATIENT WEIGHT: Weight (lb): 180 Weight (oz): Weight (kg): 81.647 Medications: Active Meds + DC'd Last 24 Hrs Amlodipine Besylate (NORVASC) 5 MG DAILY PO Sterile Water (WATER FOR INJECTION) 1.2 ML ASDIR PRN IM Ziprasidone (GEODON 20MG VIAL) 10 MG Q12H PRN NM N IM Sodium Chloride (SODIUM CHLORIDE 0.9%) 1,000 ML .Q10H IV Lorazepam (ATIVAN) 1 MG Q6H PRN PRN IV Sodium Chloride (SODIUM CHLORIDE) 0 ASDIR PRN IV Metoprolol Tartrate (LOPRESSOR) 25 MG Q12HR PO Hydralazine HCl (APRESOLINE) 15 MG Q6H PRN PRN I V Sterile Water (WATER FOR INJECTION) 1.2 ML ASDIR PRN IM Folic Acid (FOLIC ACID) 1 MG DAILY PO Losartan Potassium (COZAAR) 100 MG DAILY PO Multivitamins (TAB-A-FINESSE) 1 TAB DAILY PO Tamsulosin HCl (Flomax 0.4 mg) 0.4 MG DAILY PO Thiamine HCl (THIAMINE HCL) 100 MG DAILY PO Rivaroxaban (XARELTO 20MG) 20 MG C BK PO Acetaminophen (TYLENOL) 650 MG Q4H PRN PRN PO Ondansetron HCl (ZOFRAN) 4 MG Q4H PRN PRN IV Functional Progress Functional progress: devices for safe mobility and/or positioning. SUPERVISION: 1. One on one supervision with cueing and angeli tance provided to ensure proper performance of all activities. Yes Precautions: Fall Cardiac Combative Pre- Gait Mobility Y/N: Yes Safety addressed through use of: Gait Belt Verbal Cues Gait Device ROLLING WALKER ROLLATOR Weightbearing: No Restriction Ambulation Distance: 100FT W/ ROLLATOR 20FT W/ RW Progression: Forward Assistance Level: Minimal Assistance Gait Deviations: NARROW HANNA FORWARD FLEXED POSTURE STUMBLING DECR B FOOT CLEARANCE Effects of Treatment: Gait quality improved Function Improved Balance Improved Post TX Precautions: In Bed, rails Up Bed Alarm Freelance Programmer/App Developer Light in Reach Family/Sitter at Bedside Nursing Notified Review Plan of Care: Yes PT charges: Gait Training 59684 Gait Cmt: CAN BE IMPULSIVE. MOD A SUPINE>SIT FO R PUMP OPERATOR BYPRODUCTS TRUNK LIFT W/ HOB FLAT. MOD A SIT<>STAND W/ ROLLATOR AND RW X6 REPS DURING SESSION, ASSIST W/ LIFT. AMBULATED 100FT W/ ROLLATOR MIN A, FREQUENTLY STUMBLING OVER FEET. VC'S FOR INCREASING CLEARANCE "DON'T PULL ON ME!" Pt THE AMBULATED 20FT W/ RW INSIDE ROOM MIN A. MAX VC'S FOR RW PROXIMITY AN D SAFETY. Pt STATES THAT HE DOES NOT LIKE THE RW , BUT BOTH Pt AND DTR EDUCATED ON RW>ROLLATOR FOR SAFETY. LEFT SITTING ON RECLINER W/ LUNCH TRAY SETUP, DTR AT BEDSIDE, AND RN YOAN MADE AWARE. If this is the patient's last treatment, this e ntry Start Time: 1155 Stop Time: 1220 Treatment Time : ( minutes) 0:25 Completed by: Ilana Patel Conference/Supervising PT: Yes Supervising Therapist: 2 Joanie Nickerson . BED MOBILITY: Yes Rolling Right/Left: Supervision or Set-up Supine to Sit: Minimal Assistance TRANSFERS: Yes Sit to/from stand: Moderate Assistance CARDIO-RESPIRATORY IMPAIRMENT Items determined to be OUTSIDE the Functional L imits are as follows: 1. One on one supervision with cueing and angeli tance provided to ensure proper performance of all activities: Yes ACTIVITIES PERFORMED: Grooming and Hygiene: Yes Precautions: Fall Requires verbal cues to direct task: No Positions Used: Standing with Assist FUNCTIONAL BALANCE DURING ACTIVITY: Fair TREATMENT OUTCOMES: Goals Achieved: No Progress demonstrated toward desired goals: Yes Decreased level of assistance needed: Yes Activity tolerance: Greater than 30 minutes Document OT charges: SELF/HOME MGT/ADL [id number] Review OT Plan of Care: Yes If this is the patient's last treatment, this e ntry Start Time: 946 Stop Time: 1001 Treatment florentin e ( minutes): 0:14 Completed by: Khalida Alatorre Conference/Supervising OT: Carol Supervising Therap ist: ANGELA.Chacorta Hayden - GROOMING/HYGIENE: Washing hands/face: Modified [place] Oral Hygiene: Modified [place] Combing/brushing hair: Modified [place] Physical Exam General appearance: alert, awake, no acute distr ess HEENT: trauma to the face an d head. Large heamtoma to the forehead on the right, ecchymosis to the face. Blurred vision with dept h perception off. MMM P. Neck: supple, no JVD Cardiovascular: regular rate rhythm, S1/S2, no m urmur Respiratory: aerating well, clear bilaterally Abdomen: bowel sounds present, non-distended, so ft, non-tender Skin: diffuse bruising to the face, right neck, Right Leg cool wit arterial chanegs. Musculoskeletal - general: Musculoskeletal - general: joints charan l, normal tone, range of motion normal , strength testing normal Neuro/HAND COLLATOR: alert, normal speech, no motor defici ts, oriented to self and hospital. He has ataxia noted with feeding and d rinking. Appeasr to have left facial droop and leaning to the left with weak c ore. Diagnosis, Assessment Plan Free Text A P: Pt with syncope with LOC and acute head trauma. He has a large frontal hematoma with diffuse facial brusing, ataxia, marc rred vision, acute encephalopathy with delerium post recent angiogram and stent . Hx of Atrial fibrillation, PAD, HTn. PLan: Pt with acute debility and noted to be meron ruddy to the left in exam with weak core. States blurred vi jorge present, but improving. PT and OT consulted. He will need aggressive rehab with close MD follow up. MINING CAPTAIN ordered due to acute head trauma. Recommend BSE for any aspiration an d cognitive evaluation. 04/22: Encehaloptahy clearing. Doing much better today. Discussed with IM. Beau markham. Discussed with his d michele at the bedside. IRF order placed. Undergoing MINING CAPTAIN evaluation. 04/25: Pt seen up walking the azam ls with nursing. He is noted towards the end of his gait starting to fatigue with legs getting weak. He is against using the RW and only wants to use his R ollator. Has a difficult time with STS after gait and requires MIN A with STS. Rehab pending. Still seems a littel confused. Rehab attestation: Face to face exam completed. Treatment plan disc ussed with patient. Electronically Signed by Tammy Jerez PA-C on at 2035 RPT #:[id number] END OF REPORT 2021-04-24 19:29:00-00:00 [facility] Vascular Surgery Progress Note REPORT#:[id number] REPORT STATUS: Signed DATE:04/24/21 TIME: 1928 PATIENT: KAYLYNN MISTRY UNIT #: [id number] ROOM/BED: [place] [address] : 35 AGE: 85 SEX: M ATTEND: José Jimenez MD ADM AUTHOR: Abad Oakley MD * ALL edits or amendments must be made on the el [employer]/computer document * General Status post: Left leg revacularization with atherectomy and s tent Subjective HPI Patient with left foot swelling, mild redness, n o pain and intactposterior tibial artery signal. Review of Systems All systems rev neg: except as marked Objective General VS/I O: Last Documented: Result Date Time B/P 126/85 04/24 1604 B/P Mean 98.7 04/24 1604 Temp 97.7 04/24 1604 Pulse 94 04/24 1604 Resp 12 04/24 1604 Pulse Ox 100 04/24 1113 O2 Delivery Room air 04/24 1113 O2 Flow Rate 2 04/23 2244 FiO2 21 04/14 0830 24 hour I O ending at 0700: 04/24 0700 04/23 1900 Intake Total 200 730 Output Total 200 Balance 200 530 Intake, Oral 200 730 Number 1 Incontinent Voids Output, Urine 200 PATIENT WEIGHT: Weight (lb): 180 Weight (oz): Weight (kg): 81.647 Physical Exam General appearance: no acute distress Head/Eyes: right eye anf roehead ancheeak bruidi ng improved, normocephalic ENT: normal ear left, normal ear right, normal n ose Neck: full range of motion, no JVD Cardiovascular: regular rate rhythm Respiratory: aerating well, symmetric expansion, no distress Abdomen: non-tender, soft, no distention Extremities: no clubbing, no cyanosis, mild may a Neuro/HAND COLLATOR: altered mental status Skin: bruising on the face under the eyes Diagnosis, Assessment Plan Problem List/A P: 1. PVD (peripheral vascular disease) 2. Altered mental status 3. BPH (benign prostatic hyperplasia) 4. HTN (hypertension) Free Text A P: Patient with improved altere d mental status of uncertain etiology. Can continue xarelto. Successful angiogra m with persistent flow to left lwer extremety. Pleas follow up as outpatient afte r mdischarge for surveillance. Signals still intact. [place] likely dur to venous insifficiency. Can consider mild compression therapy with knee high compression socks. Thank you for the consult. at 1933 RPT #:[id number] END OF REPORT 2021-04-24 12:29:00-00:00 [facility]) Hospitalist Progress Note REPORT#:[id number] REPORT STATUS: Signed DATE:04/24/21 TIME: 1229 PATIENT: KAYLYNN MISTRY UNIT #: [id number] ROOM/BED: [place] [address] : 35 AGE: 85 SEX: M ATTEND: José Jimenez MD ADM AUTHOR: Dileep Li MD * ALL edits or amendments must be made on the [employer]/computer document * Subjective Chief Complaint: DUAGHTER AT BS, PER NURSE DOPPLER WITH POOR FLOW ON LEFT FOOT. Objective General VS/I O: Vital Signs: Date Time Temp Pulse Resp B/P B/P Pulse O2 O2 F low FiO2 Mean Ox Delivery Rate 04/24 1113 98.2 64 16 139/93 108.3 100 Room air 04/24 0750 97.5 66 12 143/93 109.6 98 Room air 04/24 0438 98.2 66 16 134/83 100.1 98 Room air 04/23 2244 98.6 52 16 136/85 102.1 97 Nasal 2 cannula 04/23 2039 Nasal 2 cannula 04/23 2008 97.7 62 16 128/78 94.9 100 Nasal 2 cannula 04/23 1658 97.9 65 18 119/76 90.6 96 Nasal cannula 24 hour I O ending at 0700: 04/24 0700 04/23 1900 Intake Total 200 730 Output Total 200 Balance 200 530 Intake, Oral 200 730 Number 1 Incontinent Voids Output, Urine 200 PATIENT WEIGHT: Weight (lb): 180 Weight (oz): Weight (kg): 81.647 Medications: Active Meds + DC'd Last 24 Hrs Amlodipine Besylate (NORVASC) 5 MG DAILY PO Sterile Water (WATER FOR INJECTION) 1.2 ML ASDIR PRN IM Ziprasidone (GEODON 20MG VIAL) 10 MG Q12H PRN NM N IM Sodium Chloride (SODIUM CHLORIDE 0.9%) 1,000 ML .Q10H IV Lorazepam (ATIVAN) 1 MG Q6H PRN PRN IV Sodium Chloride (SODIUM CHLORIDE) 0 ASDIR PRN IV Metoprolol Tartrate (LOPRESSOR) 25 MG Q12HR PO Hydralazine HCl (APRESOLINE) 15 MG Q6H PRN PRN I V Sterile Water (WATER FOR INJECTION) 1.2 ML ASDIR PRN IM Folic Acid (FOLIC ACID) 1 MG DAILY PO Losartan Potassium (COZAAR) 100 MG DAILY PO Multivitamins (TAB-A-FINESSE) 1 TAB DAILY PO Tamsulosin HCl (Flomax 0.4 mg) 0.4 MG DAILY PO Thiamine HCl (THIAMINE HCL) 100 MG DAILY PO Rivaroxaban (XARELTO 20MG) 20 MG C BK PO Acetaminophen (TYLENOL) 650 MG Q4H PRN PRN PO Ondansetron HCl (ZOFRAN) 4 MG Q4H PRN PRN IV Physical Exam General appearance: chronically ill appearing, f rail, alert, awake Head/Eyes: RACCOON EYES/ECCHYMOSIS OF FACE Neck: no JVD Cardiovascular: normal heart sounds, regular rat e rhythm Respiratory: aerating well, clear to auscultatio n, symmetric expansion, no distress Abdomen: non-tender, normal bowel sounds, soft, no distention Extremities: no edema Musculoskeletal: muscle wasting Neuro/HAND COLLATOR: altered mental status, disoriented, a lert, normal speech Skin: bruising on the face under the eyes Psychiatry: anxious Diagnosis, Assessment Plan Free Text DxA P Notes Free text DxA P notes: 84 y/o with PVD/HTN/tobacco abuse who presents with AMS after elective angiogram of his legs. 1. ACUTE DELIRIUM (DT)/METAB ENCEPHALOPA THY (ALCOHOL INDUCED- 2 SHOTS WHISKEY/ DAY) - NOW NL MS, MRI/MRA/Echo negative. Neuro/P SYCH seen. LP negative, OFF SEDATIVE, D/C ATIVAN PRN 2. FALLS/Episode of unresponsiveness - cards see n. Echo negative 3. HTN (hypertension) - cont home losartan 4. BPH (benign prostatic hyperplasia) - on floma x 5. PVD (peripheral vascular disease), S/P ATHRECTOMY/T-PA - on Xarelto. arterial blood flow with blockage in the left popliteal artery, NOTIFY DR. OAKLEY OF POOR CIRCULATION 6. h/o moderartly heavy etoh - 2 mixed d rinks a night. thiamine and PRN ativan 7. UNLIKELY contrast induced encephalopathy - MORE LIKEYLY DT, DAUGHTER REQUESTS A TRIAL OF STEROID X1 DEBILITY - REHAB SEEN, CM FOR IRF EVAL DVT prophylaxis - ON XARELTO FOR PVD Quality: Gen Med Crit Care Advanced Care Plan 65 or Older Discussed with: patient, surrogate decis. maker Electronically Signed by Dileep Li MD on 04/24 at 1231 RPT #:[id number] END OF REPORT 2021-04-24 10:49:00-00:00 [facility] ([facility]) Cardiology Progress Note REPORT#:[id number] REPORT STATUS: Signed DATE:04/24/21 TIME: 1049 PATIENT: KAYLYNN MISTRY UNIT #: [id number] ROOM[address]BED: [address] : 35 AGE: 85 SEX: M ATTEND: José Jimenez MD ADM AUTHOR: Michael Schmidt MD * ALL edits or amendments must be made on the [employer]/computer document * Subjective Chief Complaint: NONE Objective General VS/I O: 24 hour I O ending at 0700: 04/24 0700 04/23 1900 Intake Total 200 730 Output Total 200 Balance 200 530 Intake, Oral 200 730 Number 1 Incontinent Voids Output, Urine 200 Vital Signs: Date Time Temp Pulse Resp B/P B/P Pulse O2 O2 F low FiO2 Mean Ox Delivery Rate 04/24 0750 97.5 66 12 143/93 109.6 98 Room air 04/24 0438 98.2 66 16 134/83 100.1 98 Room air 04/23 2244 98.6 52 16 136/85 102.1 97 Nasal 2 cannula 04/23 2040 Nasal 2 cannula 04/23 2008 97.7 62 16 128/78 94.9 100 Nasal 2 cannula 04/23 1658 97.9 65 18 119/76 90.6 96 Nasal cannula 04/23 1133 98.4 69 17 127/86 99.4 99 Nasal cannula PATIENT WEIGHT: Weight (lb): 180 Weight (oz): Weight (kg): 81.647 Medications: Active Meds + DC'd Last 24 Hrs Amlodipine Besylate (NORVASC) 5 MG DAILY PO Sterile Water (WATER FOR INJECTION) 1.2 ML ASDIR PRN IM Ziprasidone (GEODON 20MG VIAL) 10 MG Q12H PRN NM N IM Sodium Chloride (SODIUM CHLORIDE 0.9%) 1,000 ML .Q10H IV Lorazepam (ATIVAN) 1 MG Q6H PRN PRN IV Sodium Chloride (SODIUM CHLORIDE) 0 ASDIR PRN IV Metoprolol Tartrate (LOPRESSOR) 25 MG Q12HR PO Hydralazine HCl (APRESOLINE) 15 MG Q6H PRN PRN I V Sterile Water (WATER FOR INJECTION) 1.2 ML ASDIR PRN IM Folic Acid (FOLIC ACID) 1 MG DAILY PO Losartan Potassium (COZAAR) 100 MG DAILY PO Multivitamins (TAB-A-FINESSE) 1 TAB DAILY PO Tamsulosin HCl (Flomax 0.4 mg) 0.4 MG DAILY PO Thiamine HCl (THIAMINE HCL) 100 MG DAILY PO Rivaroxaban (XARELTO 20MG) 20 MG C BK PO Acetaminophen (TYLENOL) 650 MG Q4H PRN PRN PO Ondansetron HCl (ZOFRAN) 4 MG Q4H PRN PRN IV Physical Exam General appearance: no acute distress Head/Eyes: bruise face/eyes Neck: non-tender, no JVD Cardiovascular: CV assessment: irregularly irregular Respiratory: no distress Abdomen: soft, non-tender Genitourinary: no medina Lower extremity: LE assessment: abnormal pedal pulse (L dorsalis pedis - no pulse) Neuro/HAND COLLATOR: disoriented, alert Skin: poor skin turgor Psychiatry: abnl judgment/insight Results Results: no new labs, vital signs stable Diagnosis, Assessment Plan Free Text DxA P Notes Free Text DxA P Notes: 84 YO male, known to Dr. Brendon smalls with PMHx of hypertension, atrial fibrillation, and PAD who presents to ED with syncopal episode and altered mental status. He had peripheral angiogram few days ago and found to have severe PAD not amenable to percutaneous intervention. We are called for further cardiac evaluation. Jennifer is a poor historian, hx provided by patient's son in-law but he himself is not familiar with patient's history. 1. Syncope of unclear etiology echocardiogram: LVEF 50-55%, normal bubble study , AV with mild to moderate stenosis MRA neck no flow-limiting stenosis MRI brain/CTH no acute stroke neuro following 2. Severe PAD/ischemic leg 04/18/21: s/p bilateral peripheral angioplasty wi th stents placement by Dr. Oakley 1. Left superficial femoral popliteal artery ath erectomy, stent, 5 mm x 15 cm Viabahn [id number] 2. Left posterior tibial art marleny angioplasty with 3.0 and 2.5 mm. initial tibial vessel 21028 3. Left peroneal artery angioplasty with 2.5 mm, additonal tibial vessel 39517 4. Right external iliac stent graft 6 mm X 7.5 c m viabahn 40226 5. Left superfical femoral artery and popliteal tpa 3. Chronic atrial fibrillation - periodic RVR mo stly when agitated continue Xarelto and metoprolol tartrate 25 mg t wice daily DC telemetry - He has not been wearing his telem etry ideal candidate for watchman procedure - will gunnar hidalgo with Dr. Davies 4. Hypertension labile blood pressure continue losartan 100 mg daily and metoprolol ta rtrate 25 mg BID may use PRN IV hydralazine 5. Altered mental status/Behavioral disturbance - off and on most likely he has underlying dementia Head imaging - no acute findinds to explain beha vior known hx of heav alcohol use psych on board 6. s/p Fall CT head no acute finding 7. Debility rehab consulted 04/23/21: -STABLE CARDIAC STATUS -A FIB, TESSIE CONTROL AND ANTICOAGULATION 04/24/21; -A FIB, RATE CONTROL AND ANTICOAGULATION, -HR IN 60'S -ON XARELTO -SEVERE PAD - S/P TAP PULLER -ADD NORVASC 5 MG FOR BETTER BP CONTROL -ECHO: EF 50-55%. MILD TO MO D , MILD AI, MILD MR, MILD TO MOD TR, PAS 38 MMHG -CONFUSION-IN PATIENT REHAB at 0830 RPT #:[id number] END OF REPORT 2021-04-23 12:12:00-00:00 [facility] Hospitalist Progress Note REPORT#:[id number] REPORT STATUS: Signed DATE:04/23/21 TIME: 1212 PATIENT: KAYLYNN MISTRY UNIT #: [id number] ROOM/BED: 4431-1 : 35 AGE: 85 SEX: M ATTEND: José Jimenez MD ADM AUTHOR: Dileep Li MD * ALL edits or amendments must be made on the [employer]/computer document * Subjective Chief Complaint: HE'S BACK TO MS, DAUGHTER AT BS, AND CAN CONV ERSE, AND AGREES WITH IRF EVAL AND TX. HE HAS NO RECOLLECTION OF WHAT HAPP ED A FEW DAYS AGO. HE ADMITS TO DRINKING 2 SHOTS OF WHISKEY A DAY. Objective General Medications: Active Meds + DC'd Last 24 Hrs Amlodipine Besylate (NORVASC) 5 MG DAILY PO Sterile Water (WATER FOR INJECTION) 1.2 ML ASDIR PRN IM Ziprasidone (GEODON 20MG VIAL) 10 MG Q12H PRN NM N IM Sodium Chloride (SODIUM CHLORIDE 0.9%) 1,000 ML .Q10H IV Lorazepam (ATIVAN) 1 MG Q6H PRN PRN IV Sodium Chloride (SODIUM CHLORIDE) 0 ASDIR PRN IV Metoprolol Tartrate (LOPRESSOR) 25 MG Q12HR PO Hydralazine HCl (APRESOLINE) 15 MG Q6H PRN PRN I V Sterile Water (WATER FOR INJECTION) 1.2 ML ASDIR PRN IM Folic Acid (FOLIC ACID) 1 MG DAILY PO Losartan Potassium (COZAAR) 100 MG DAILY PO Multivitamins (TAB-A-FINESSE) 1 TAB DAILY PO Tamsulosin HCl (Flomax 0.4 mg) 0.4 MG DAILY PO Thiamine HCl (THIAMINE HCL) 100 MG DAILY PO Rivaroxaban (XARELTO 20MG) 20 MG C BK PO Acetaminophen (TYLENOL) 650 MG Q4H PRN PRN PO Ondansetron HCl (ZOFRAN) 4 MG Q4H PRN PRN IV Physical Exam General appearance: alert, awake Head/Eyes: RACCOON EYES/ECCHYMOSIS OF FACE ENT: normal ear left, normal ear right, normal n ose Neck: no JVD Cardiovascular: normal heart sounds, regular rat e rhythm Respiratory: aerating well, clear to auscultatio n, symmetric expansion, no distress Abdomen: non-tender, normal bowel sounds, soft, no distention Extremities: no edema Musculoskeletal: muscle wasting Neuro/HAND COLLATOR: altered mental status, disoriented, a lert, normal speech Skin: bruising on the face under the eyes Psychiatry: anxious Diagnosis, Assessment Plan Free Text DxA P Notes Free text DxA P notes: 84 y/o with PVD/HTN/tobacco abuse who presents with AMS after elective angiogram of his legs. 1. ACUTE DELIRIUM (DT)/METAB ENCEPHALOPA THY (ALCOHOL INDUCED- 2 SHOTS WHISKEY/ DAY) - NOW NL MS, MRI/MRA/Echo negative. Neuro/P SYCH seen. LP negative, OFF SEDATIVE, D/C ATIVAN PRN 2. FALLS/Episode of unresponsiveness - cards see n. Echo negative 3. HTN (hypertension) - cont home losartan 4. BPH (benign prostatic hyperplasia) - on floma x 5. PVD (peripheral vascular disease), S/P ATHRECTOMY/T-PA - on Xarelto. arterial blood flow with blockage in the left popliteal a rtery. Angiogram today. vasc surgery seen 6. h/o moderartly heavy etoh - 2 mixed d rinks a night. thiamine and PRN ativan 7. UNLIKELY contrast induced encephalopathy - MORE LIKEYLY DT, DAUGHTER REQUESTS A TRIAL OF STEROID X1 DEBILITY - REHAB SEEN, CM FOR IRF EVAL DVT prophylaxis - ON XARELTO FOR PVD Quality: Gen Med Crit Care Advanced Care Plan 65 or Older Discussed with: patient, surrogate decis. maker Electronically Signed by Dileep Li MD on 04/23 at 1215 RPT #:[id number] END OF REPORT 2021-04-23 09:53:00-00:00 [facility] Cardiology Progress Note REPORT#:[id number] REPORT STATUS: Signed DATE:04/23/21 TIME: 09 PATIENT: KAYLYNN MISTRY UNIT #: [id number] ROOM/BED: [place] [address] : 35 AGE: 85 SEX: M ATTEND: José Jimenez MD ADM AUTHOR: Michael Schmidt MD * ALL edits or amendments must be made on the [employer]/computer document * Subjective Chief Complaint: NONE Objective General VS/I O: 24 hour I O ending at 0700: 04/23 0700 04/22 1900 Intake Total 1400.00 Output Total Balance 1400.00 Intake, IV 1200.00 Intake, Oral 200 Intake, Oral 0 Supplement Number 2 Bowel Movements Number Voids 1 Vital Signs: Date Time Temp Pulse Resp B/P B/P Pulse O2 O2 F low FiO2 Mean Ox Delivery Rate 04/23 821 97.3 74 16 159/98 118.2 100 Nasal cannula 04/23 413 98.2 64 17 130/89 102.8 94 Room air 04/23 004 97.9 65 18 120/81 93.7 96 Room air 01/21 1906 97.7 99 17 110/72 84.8 94 Room air 04/22 1544 98.6 75 14 124/80 94.7 97 Room air 04/22 1108 98.2 69 16 93/65 74.1 99 Room air PATIENT WEIGHT: Weight (lb): 180 Weight (oz): Weight (kg): 81.647 Medications: Active Meds + DC'd Last 24 Hrs Sterile Water (WATER FOR INJECTION) 1.2 ML ASDIR PRN IM Ziprasidone (GEODON 20MG VIAL) 10 MG Q12H PRN NM N IM Sodium Chloride (SODIUM CHLORIDE 0.9%) 1,000 ML .Q10H IV Lorazepam (ATIVAN) 1 MG Q6H PRN PRN IV Sodium Chloride (SODIUM CHLORIDE) 0 ASDIR PRN IV Sterile Water (WATER FOR INJECTION) 1.2 ML ASDIR PRN IM (DC) Ziprasidone (GEODON 20MG VIAL) 10 MG Q6H PRN PRN IM (DC) Quetiapine Fumarate (SEROqueL) 12.5 MG ONCE PRN PO (DC) Metoprolol Tartrate (LOPRESSOR) 25 MG Q12HR PO Hydralazine HCl (APRESOLINE) 15 MG Q6H PRN PRN I V Sterile Water (WATER FOR INJECTION) 1.2 ML ASDIR PRN IM Folic Acid (FOLIC ACID) 1 MG DAILY PO Losartan Potassium (COZAAR) 100 MG DAILY PO Multivitamins (TAB-A-FINESSE) 1 TAB DAILY PO Tamsulosin HCl (Flomax 0.4 mg) 0.4 MG DAILY PO Thiamine HCl (THIAMINE HCL) 100 MG DAILY PO Rivaroxaban (XARELTO 20MG) 20 MG C BK PO Acetaminophen (TYLENOL) 650 MG Q4H PRN PRN PO Ondansetron HCl (ZOFRAN) 4 MG Q4H PRN PRN IV Physical Exam General appearance: no acute distress Head/Eyes: bruise face/eyes Neck: non-tender, no JVD Cardiovascular: CV assessment: irregularly irregular Respiratory: no distress Abdomen: soft, non-tender Genitourinary: no medina Lower extremity: LE assessment: abnormal pedal pulse (L dorsalis pedis - no pulse) Neuro/HAND COLLATOR: disoriented, alert Skin: poor skin turgor Psychiatry: abnl judgment/insight Results Results: no new labs, vital signs stable Diagnosis, Assessment Plan Free Text DxA P Notes Free Text DxA P Notes: 84 YO male, known to Dr. Brendon smalls with PMHx of hypertension, atrial fibrillation, and PAD who presents to ED with syncopal episode and altered mental status. He had peripheral angiogram few days ago and found to have severe PAD not amenable to percutaneous intervention. We are called for further cardiac evaluation. Paticlaude is a poor historian, hx provided by patient's son in-law but he himself is not familiar with patient's history. 1. Syncope of unclear etiology echocardiogram: LVEF 50-55%, normal bubble study , AV with mild to moderate stenosis MRA neck no flow-limiting stenosis MRI brain/CTH no acute stroke neuro following 2. Severe PAD/ischemic leg 04/18/21: s/p bilateral peripheral angioplasty wi th stents placement by Dr. Oakley 1. Left superficial femoral popliteal artery ath erectomy, stent, 5 mm x 15 cm Viabahn [id number] 2. Left posterior tibial art marleny angioplasty with 3.0 and 2.5 mm. initial tibial vessel 50378 3. Left peroneal artery angioplasty with 2.5 mm, additonal tibial vessel 89631 4. Right external iliac stent graft 6 mm X 7.5 c m viabahn 22625 5. Left superfical femoral artery and popliteal tpa 3. Chronic atrial fibrillation - periodic RVR mo stly when agitated continue Xarelto and metoprolol tartrate 25 mg t wice daily DC telemetry - He has not been wearing his telem etry ideal candidate for watchman procedure - will gunnar hidalgo with Dr. Davies 4. Hypertension labile blood pressure continue losartan 100 mg daily and metoprolol ta rtrate 25 mg BID may use PRN IV hydralazine 5. Altered mental status/Behavioral disturbance - off and on most likely he has underlying dementia Head imaging - no acute findinds to explain beha vior known hx of heav alcohol use psych on board 6. s/p Fall CT head no acute finding 7. Debility rehab consulted 04/23/21; -A FIB, RATE CONTROL AND ANTICOAGULATION, -HR IN 60'S -ON XARELTO -SEVERE PAD - S/P TAP PULLER -ADD NORVASC 5 MG FOR BETTER BP CONTROL -ECHO: EF 50-55%. MILD TO MO D , MILD AI, MILD MR, MILD TO MOD TR, PAS 38 MMHG -CONFUSION-IN PATIENT REHAB Electronically Signed by Michael Schmidt MD on 0 04/24/21 at 1036 [facility] #:[id number] END OF REPORT 2021-04-22 11:24:00-00:00 [facility] ([facility]) Hospitalist Progress Note REPORT#:[id number] REPORT STATUS: Signed DATE:04/22/21 TIME: 1124 PATIENT: KAYLYNN MISTRY UNIT #: [id number] ROOM/BED: [place] [address] : 35 AGE: 85 SEX: M ATTEND: José Jimenez MD ADM AUTHOR: Dileep Li MD * ALL edits or amendments must be made on the [employer]/computer document * Subjective Chief Complaint: HE'S BACK TO MS, DAUGHTER AT BS, AND CAN CONVERSE, AND AGREES WITH IRF EVAL AND TX. HE HAS NO RECOLLECTION OF WHAT HAPPED A FEW DAYS AGO. Objective General Medications: Active Meds + DC'd Last 24 Hrs Sodium Chloride (SODIUM CHLORIDE 0.9%) 1,000 ML .Q10H IV Lorazepam (ATIVAN) 1 MG Q6H PRN PRN IV Sodium Chloride (SODIUM CHLORIDE) 0 ASDIR PRN IV Sterile Water (WATER FOR INJECTION) 1.2 ML ASDIR PRN IM (DCr) Ziprasidone (GEODON 20MG VIAL) 10 MG Q6H PRN PRN IM (DCr) Quetiapine Fumarate (SEROqueL) 12.5 MG ONCE PRN PO (DCr) Metoprolol Tartrate (LOPRESSOR) 25 MG Q12HR PO Hydralazine HCl (APRESOLINE) 15 MG Q6H PRN PRN I V Sterile Water (WATER FOR INJECTION) 1.2 ML ASDIR PRN IM Folic Acid (FOLIC ACID) 1 MG DAILY PO Losartan Potassium (COZAAR) 100 MG DAILY PO Multivitamins (TAB-A-FINESSE) 1 TAB DAILY PO Tamsulosin HCl (Flomax 0.4 mg) 0.4 MG DAILY PO Thiamine HCl (THIAMINE HCL) 100 MG DAILY PO Rivaroxaban (XARELTO 20MG) 20 MG C BK PO Acetaminophen (TYLENOL) 650 MG Q4H PRN PRN PO Ondansetron HCl (ZOFRAN) 4 MG Q4H PRN PRN IV Physical Exam General appearance: alert, awake, oriented, conv ersational Head/Eyes: RACCOON EYES/ECCHYMOSIS OF FACE ENT: normal ear left, normal ear right, normal n ose Neck: no JVD Cardiovascular: normal heart sounds, regular rat e rhythm Respiratory: aerating well, clear to auscultatio n, symmetric expansion, no distress Abdomen: non-tender, normal bowel sounds, soft, no distention Extremities: no edema Musculoskeletal: muscle wasting Neuro/HAND COLLATOR: altered mental status, disoriented, a lert, normal speech Skin: bruising on the face under the eyes Psychiatry: anxious Diagnosis, Assessment Plan Free Text DxA P Notes Free text DxA P notes: 84 y/o with PVD/HTN/tobacco abuse who presents with AMS after elective angiogram of his legs. 1. ACUTE DELIRIUM/METAB ENCE PHALOPATHY ON DEMENTIA (ALCOHOL INDUCED) - RESOLVED WITH STEROID X1, NOW NL MS, MRI/MRA/Echo negative. Neuro/PSYCH seen. LP negative , OFF SEDATIVE, OD/C ATIVAN PRN, S/P STEROID X1 AT DAUGHTER'S REQUEST FOR CONTRAST INDUCED ENCEPHALOPATHY 2. FALLS/Episode of unresponsiveness - cards see n. Echo negative 3. HTN (hypertension) - cont home losartan 4. BPH (benign prostatic hyperplasia) - on floma x 5. PVD (peripheral vascular disease), S/P ATHRECTOMY/T-PA - on Xarelto. arterial blood flow with blockage in the left popliteal a rtery. Angiogram today. vasc surgery seen 6. h/o moderartly heavy etoh - 2 mixed d rinks a night. thiamine and PRN ativan 7. contrast induced encephal opathy - on IVF, DAUGHTER REQUEST A TRIAL OF STEROID DEBILITY - REHAB SEEN, CM FOR IRF EVAL DVT prophylaxis - ON XARELTO FOR PVD Quality: Gen Med Crit Care Advanced Care Plan 65 or Older Discussed with: patient, surrogate decis. maker Electronically Signed by Dileep Li MD on 04/22 at 1130 RPT #:[id number] END OF REPORT 2021-04-22 09:41:00-00:00 [facility] Cardiology Progress Note REPORT#:[id number] REPORT STATUS: Signed DATE:04/22/21 TIME: 940 PATIENT: KAYLYNN MISTRY UNIT #: [id number] ROOM/BED: 4431-1 : 35 AGE: 85 SEX: M ATTEND: José Jimenez MD ADM AUTHOR: Katy Jack CNP * ALL edits or amendments must be made on the [employer]/computer document * Subjective Chief Complaint: More lucid toda Objective General VS/I O: 24 hour I O ending at 0700: 04/22 0700 04/21 1900 Intake Total Output Total Balance Patient 81.647 kg Weight Vital Signs: Date Time Temp Pulse Resp B/P B/P Pulse O2 O2 F low FiO2 Mean Ox Delivery Rate 04/22 0825 36.4 74 12 141/97 111.4 98 Room air 04/22 0333 36.8 82 14 130/82 98.3 99 Room air 04/22 0146 36.9 82 18 184/100 128.1 99 Room air 04/21 2108 36.7 79 18 145/96 112.6 96 Room air 04/21 1633 36.9 85 17 104/54 70.6 93 Room air 04/21 1127 36.8 97 17 124/80 94.5 96 Room air PATIENT WEIGHT: Weight (lb): 180 Weight (oz): Weight (kg): 81.647 Medications: Active Meds + DC'd Last 24 Hrs Sodium Chloride (SODIUM CHLORIDE 0.9%) 1,000 ML .Q10H IV Lorazepam (ATIVAN) 1 MG Q6H PRN PRN IV Sodium Chloride (SODIUM CHLORIDE) 0 ASDIR PRN I V Sterile Water (WATER FOR INJECTION) 1.2 ML ASDIR PRN IM Ziprasidone (GEODON 20MG VIAL) 10 MG Q6H PRN PRN IM Quetiapine Fumarate (SEROqueL) 12.5 MG ONCE PRN PO Metoprolol Tartrate (LOPRESSOR) 25 MG Q12HR PO Hydralazine HCl (APRESOLINE) 15 MG Q6H PRN PRN I V Sterile Water (WATER FOR INJECTION) 1.2 ML ASDIR PRN IM Folic Acid (FOLIC ACID) 1 MG DAILY PO Losartan Potassium (COZAAR) 100 MG DAILY PO Multivitamins (TAB-A-FINESSE) 1 TAB DAILY PO Tamsulosin HCl (Flomax 0.4 mg) 0.4 MG DAILY PO Thiamine HCl (THIAMINE HCL) 100 MG DAILY PO Rivaroxaban (XARELTO 20MG) 20 MG C BK PO Acetaminophen (TYLENOL) 650 MG Q4H PRN PRN PO Ondansetron HCl (ZOFRAN) 4 MG Q4H PRN PRN IV Physical Exam General appearance: chronically ill appearing, f rail, alert, awake, no acute distress Head/Eyes: bruise face/eyes Neck: non-tender, no JVD Cardiovascular: CV assessment: irregularly irregular Respiratory: no distress Abdomen: soft, non-tender Genitourinary: no medina Lower extremity: LE assessment: abnormal pedal pulse (L dorsalis pedis - no pulse) Neuro/HAND COLLATOR: disoriented, alert Skin: poor skin turgor Psychiatry: abnl judgment/insight Results Results: no new labs, vital signs stable Diagnosis, Assessment Plan Problem List/A P: 1. Altered mental status 2. Episode of unresponsiveness 3. PVD (peripheral vascular disease) Plan discussed with: daughter, nurse Free Text DxA P Notes Free Text DxA P Notes: 84 YO male, known to Dr. Brendon smalls with PMHx of hypertension, atrial fibrillation, and PAD who presents to ED with syncopal episode and altered mental status. He had peripheral angiogram few days ago and found to have severe PAD not amenable to percutaneous intervention. We are called for further cardiac evaluation. Patien is a poor historian, hx provided by patient's son in-law but he himself is not familiar with patient's history. 1. Syncope of unclear etiology echocardiogram: LVEF 50-55%, normal bubble study , AV with mild to moderate stenosis MRA neck no flow-limiting stenosis MRI brain/CTH no acute stroke neuro following 2. Severe PAD/ischemic leg 04/18/21: s/p bilateral peripheral angioplasty wi stents placement by Dr. Oakley 1. Left superficial femoral popliteal artery ath erectomy, stent, 5 mm x 15 cm Viabahn 73259 2. Left posterior tibial art marleny angioplasty with 3.0 and 2.5 mm. initial tibial vessel 30018 3. Left peroneal artery angioplasty with 2.5 mm, additonal tibial vessel 90668 4. Right external iliac stent graft 6 mm X 7.5 c m viabahn 38076 5. Left superfical femoral artery and popliteal tpa 3. Chronic atrial fibrillation - periodic RVR mo stly when agitated continue Xarelto and metoprolol tartrate 25 mg t wice daily DC telemetry - He has not been wearing his telem etry ideal candidate for watchman procedure - will gunnar hidalgo with Dr. Davies 4. Hypertension labile blood pressure continue losartan 100 mg daily and metoprolol ta rtrate 25 mg BID may use PRN IV hydralazine 5. Altered mental status/Behavioral disturbance - off and on most likely he has underlying dementia Head imaging - no acute findinds to explain beha vior known hx of heav alcohol use psych on board 6. s/p Fall CT head no acute finding 7. Debility rehab consulted at 1516 Electronically Signed by Antonina Day MD on at 0850 RPT #:[id number] END OF REPORT 2021-04-22 09:17:00-00:00 [facility] Rehab Progress Note REPORT#:[id number] REPORT STATUS: Signed DATE:04/22/21 TIME: 916 PATIENT: KAYLYNN MISTRY UNIT #: [id number] RO[address]BED: [address] : 35 AGE: 85 SEX: M ATTEND: José Jimenez MD ADM AUTHOR: Tammy Jerez PA-C * ALL edits or amendments must be made on the [employer]/computer document * Subjective Chief complaint: Pt seen and examined in bed. Objective General VS: Vital Signs: Date Time Temp Pulse Resp B/P B/P Pulse O2 O2 Flow FiO2 Mean Ox Delivery Rate 04/22 0825 97.5 74 12 141/97 111.4 98 Room air 04/22 0333 98.2 82 14 130/82 98.3 99 Room air 04/22 0146 98.4 82 18 184/100 128.1 99 Room air 04/218 98.1 79 18 145/96 112.6 96 Room air 04/21 1633 98.4 85 17 104/54 70.6 93 Room air 04/21 1127 98.2 97 17 124/80 94.5 96 Room air PATIENT WEIGHT: Weight (lb): 180 Weight (oz): Weight (kg): 81.647 Medications: Active Meds + DC'd Last 24 Hrs Sodium Chloride (SODIUM CHLORIDE 0.9%) 1,000 ML .Q10H IV Lorazepam (ATIVAN) 1 MG Q6H PRN PRN IV Sodium Chloride (SODIUM CHLORIDE) 0 ASDIR PRN IV Sterile Water (WATER FOR INJECTION) 1.2 ML ASDIR PRN IM Ziprasidone (GEODON 20MG VIAL) 10 MG Q6H PRN PRN IM Quetiapine Fumarate (SEROqueL) 12.5 MG ONCE PRN PO Metoprolol Tartrate (LOPRESSOR) 25 MG Q12HR PO Hydralazine HCl (APRESOLINE) 15 MG Q6H PRN PRN I V Sterile Water (WATER FOR INJECTION) 1.2 ML ASDIR PRN IM Folic Acid (FOLIC ACID) 1 MG DAILY PO Losartan Potassium (COZAAR) 100 MG DAILY PO Multivitamins (TAB-A-FINESSE) 1 TAB DAILY PO Tamsulosin HCl (Flomax 0.4 mg) 0.4 MG DAILY PO Thiamine HCl (THIAMINE HCL) 100 MG DAILY PO Rivaroxaban (XARELTO 20MG) 20 MG C BK PO Acetaminophen (TYLENOL) 650 MG Q4H PRN PRN PO Ondansetron HCl (ZOFRAN) 4 MG Q4H PRN PRN IV Functional Progress Functional progress: Patient agrees to comply: Y Patient/Family Goals: GET BACK TO BASELINE Modified Irvin Score: No Rehabilitation Potential: Good for goals Post [place] Precautions: In Bed, rails Up Bed Alarm Freelance Programmer/App Developer Light in Reach Family/Sitter at Bedside Nursing Notified Post [place] Comments: PATIENT EDUCATION ON SAFETY P RECAUTIONS AND TO REQUEST STAFF ASSISTANCE AND HIS OWN PERSONA L ROLLATOR BRAKES NOT WORKING UNSAFE TO USE ALONE Discharge Plan: [facility]DC facility Document Pain/Education: No Evaluation Type: High Complexity Reason for Eval Complexity: Impaired balance Impaired Cognition Impaired Strength Impaired Endurance Impaired Funct. Mobility Impaired Safety Awareness Impaired Coordination Impaired Self Care Skills Impaired Gait Comment: PT EVAL HIGH COMPLEXITY D/T COMORBIDIT TIES, MOD TO MAX A FNXL MOB, IMPAIRED GAIT, WILL BENEFIT FRO M PT PRIOR TO D/C FROM HOSP TO ADDRESS ABOVE MENTIONED DEFICITS PT charges: Eval PT High Comp [id number] If this is the patient's last treatment, this e ntry serves as the discharge summary: Y Start Time: 1155 Stop Time: 1205 Eval Time(min) : 0:10 Completed by: Joanie Nickerson MUSCULOSKELETAL MUSCULOSKELETAL Items determined to be OUTSIDE the Functional Limits are as follows: RANGE OF MOTION (Degrees): Active unless otherw ise noted UPPER EXTREMITIES: Yes Upper Extremity Measurements and Comments: LIMITED R SHOULDER ROM LOWER EXTREMITIES: Yes Lower Extremity Measurements and Comments: WFL SPINE: Yes Items determined to be OUTSIDE the Functional L imits are as follows: OBSERVED MUSCLE STRENGTH: Yes RIGHT UPPER EXTREMITY: Yes RUE Muscle Strength and Comments: SEE OT EVAL LEFT UPPER EXTREMITY: Yes LUE Muscle Strength and Comments: SEE OT EVAL RIGHT LOWER EXTREMITY: Yes RLE Muscle Strength and Comments: 3+/5 LEFT LOWER EXTREMITY: Yes LLE Muscle Strength and Comments: 2+/5 TO 3-/5 Specific Muscle Testing Comments / Specific Com ments: L LE WEAKNESS NEUROLOGICAL NEUROLOGICAL Items determined to be OUTSIDE the Functional Limits are as follows: TONE: Yes Left Lower Extremity: Low Tone Items determined to be OUTSIDE the Functional L imits are as follows: Items determined to be OUTSIDE the Functional L imits are as follows: SENSATION LIGHT TOUCH SENSATION Items determined to be OU TSIDE the Functional Limits are as follows: FUNCTIONAL MOBILITY Mobility: How much help from another person does the selena ent currently need: Turning from your back to your side in a flat b ed without using bedrails? 2 Moving from lying on your back to sitting on th e side of a flat bed without using bedrails: 2 Moving to and from a bed to a chair, including wheelchair: 2 Standing up from a chair using your arms (wheel chair, bedside chair); 2 To walk in hospital room? 2 [facility] Mobility Score: 10 FUNCTIONAL MOBILITY Items determined to be OUTSIDE the Functional L imits are as follows: BED MOBILITY: Yes Rolling Right/Left: Moderate Assistance Supine to Sit: Moderate Assistance Sit to Supine: Moderate Assistance Scooting in bed: Moderate Assistance Bed Mob.Cmt: MAX CUING FOR SEQUENCING, ABLE TO FOLLW COMMANDS BUT CONSTATN AND STEP BY STEPS DIRECTIONS FOR SAFETY TRANSFERS: Yes Bed to/from chair: Not Tested Sit to/from stand: Moderate Assistance Transfer Cmt: MAX CUING TACTILE AND VERABL FOR HAND PLACEMENT, NOT EASILY REDIRECTED, Items determined to be OUTSIDE the Functional L imits are as follows: BALANCE: Yes Static Standing: Moderate Assistance Dynamic Standing: Moderate Assistance Static Sitting: Minimal Assistance Dynamic Sitting: Minimal Assistance Patient Ambulatory: Yes Gait Assist: Moderate Assistance Gait Device ROLLING WALKER Ambulation Distance: 5 FT Gait Deviations: Ataxic Base of Support - Wide Decreased Madhuri Weightbearing: No Restriction Gait Pattern Cmt: PATIENT INITIALLY WALK WITH R W THEN INSISTED TO USE PERSONAL ROLLATOR BUT NOTED TO HAVE BRAKES NOT WORKING, CONSTANTLY ATTEMPTING TO PULL ON ROLLATOR HANDLES FOR SIT TO STAND, CUING FOR HAND PLACEMENT, AND MAX A TO STEADY ROLLATOR, THEN REPLACED WITH A RW BUT PATIENT COMPLAINTS OF RW " VERY STIFF IT DOESNT ROLLL" EDUCATED PATIENT AND DAUGHTER FOR SAFETY AND USE OF RW FOR NOW WheelChair Mobility Wheelchair Mobility: No . VISIUAL VISUAL DISORDERS Items determined to be OUTSIDE the Functional Limits are as follows: Vision Cmt: BRUISED AROUND BOTH EYES, FACIAL BR UISE HEARING HEARING DISORDERS Items determined to b e OUTSIDE the Functional Limits are as follows: Hard of Hearing: Yes FUNCTIONAL MOBILITY Items determined to be outside Functional Limit s are as follows: Supine to Sit: Moderate Assistance Sit to Supine: Moderate Assistance Sit to Stand: Moderate Assistance Functional Activity Tolerance TRANSFERS Chair/Wheelchair: Moderate Assistance Comments: MOD ASST W/RW BALANCE ACTIVITIES OF DAILY LIVING Activity: How much help from another person does the selena ent currently need: ACTIVITIES OF DAILY LIVING Items determined to be outside Functional Limits are as follows: Upper Body Dressing: Minimal Assistance Lower Body Dressing: Maximal Assistance Hygiene/Grooming: Minimal Assistance Feeding: Supervision or Set-up Toileting: Moderate Assistance Physical Exam General appearance: alert, awake HEENT: trauma to the face an d head. Large heamtoma to the forehead on the right, ecchymosis to the face. Blurred vision with dept h perception off. MMM P. Neck: supple, no JVD Cardiovascular: regular rate rhythm, S1/S2, no m urmur Respiratory: aerating well, clear bilaterally Abdomen: bowel sounds present, non-distended, so ft, non-tender Skin: diffuse bruising to the face, right neck, Right Leg cool wit arterial chanegs. Musculoskeletal - general: Musculoskeletal - general: joints charan l, normal tone, range of motion normal , strength testing normal Neuro/HAND COLLATOR: alert, oriented X 3, normal speech, n o motor deficits, no sensory deficits Diagnosis, Assessment Plan Free Text A P: Pt with syncope with LOC and acute head trauma. He has a large frontal hematoma with diffuse facial brusing, ataxia, marc rred vision, acute encephalopathy with delerium post recent angiogram and stent . Hx of Atrial fibrillation, PAD, HTn. PLan: Pt with acute debility and noted to be meron ruddy to the left in exam with weak core. States blurred vi jorge present, but improving. PT and OT consulted. He will need aggressive rehab with close MD follow up. MINING CAPTAIN ordered due to acute head trauma. Recommend BSE for any aspiration an d cognitive evaluation. 04/22: Encehaloptahy clearing. Doing nuch better today. Discussed with IM. Beau markham. Discussed with his terrell bautista at the bedside. IRF order placed. Undergoing MINING CAPTAIN evaluation. Rehab attestation: Face to face exam completed. Treatment plan disc ussed with patient. Electronically Signed by Tammy Jerez PA-C on at 0742 RPT #:[id number] END OF REPORT 2021-04-21 15:22:00-00:00 [facility] Cardiology Progress Note REPORT#:[id number] REPORT STATUS: Signed DATE:04/21/21 TIME: 1522 PATIENT: KAYLYNN MISTRY UNIT #: [id number] ROOM/BED: [address] : 35 AGE: 85 SEX: M ATTEND: José Jimenez MD ADM AUTHOR: Katy Jack ACNP * ALL edits or amendments must be made on the el [employer]/computer document * Subjective Chief Complaint: Not much change confused family by the bedside facial bruising from fall Objective General VS/I O: 24 hour I O ending at 0700: 04/21 0700 04/20 1900 Intake Total Output Total Balance Number Voids 1 Vital Signs: Date Time Temp Pulse Resp B/P B/P Pulse O2 O2 F low FiO2 Mean Ox Delivery Rate 04/21 1127 36.8 97 17 124/80 94.5 96 Room air 04/21 0733 36.8 100 17 150/91 110.8 95 Room air 04/21 0439 36.4 101 16 164/108 126.8 100 Room a ir 04/21 0014 36.8 92 16 136/87 103.4 97 Room air 04/20 1905 36.6 84 16 116/87 96.3 95 Room air 04/20 1817 36.4 97 16 109/76 86.9 PATIENT WEIGHT: Weight (lb): 180 Weight (oz): Weight (kg): 81.647 Medications: Active Meds + DC'd Last 24 Hrs Sodium Polystyrene Sulfonate (KAYEXELATE) 15 GM ONCE ONE PO (DC) Sodium Chloride (SODIUM CHLORIDE 0.9%) 1,000 ML .Q10H IV Lorazepam (ATIVAN) 1 MG Q6H PRN PRN IV Sodium Chloride (SODIUM CHLORIDE) 0 ASDIR PRN IV Sterile Water (WATER FOR INJECTION) 1.2 ML ASDIR PRN IM Ziprasidone (GEODON 20MG VIAL) 10 MG Q6H PRN PRN IM Quetiapine Fumarate (SEROqueL) 12.5 MG ONCE PRN PO Metoprolol Tartrate (LOPRESSOR) 25 MG Q12HR PO Hydralazine HCl (APRESOLINE) 15 MG Q6H PRN PRN I V Sterile Water (WATER FOR INJECTION) 1.2 ML ASDIR PRN IM Folic Acid (FOLIC ACID) 1 MG DAILY PO Losartan Potassium (COZAAR) 100 MG DAILY PO Multivitamins (TAB-A-FINESSE) 1 TAB DAILY PO Tamsulosin HCl (Flomax 0.4 mg) 0.4 MG DAILY PO Thiamine HCl (THIAMINE HCL) 100 MG DAILY PO Rivaroxaban (XARELTO 20MG) 20 MG C BK PO Acetaminophen (TYLENOL) 650 MG Q4H PRN PRN PO Ondansetron HCl (ZOFRAN) 4 MG Q4H PRN PRN IV Physical Exam General appearance: altered mental status, no ac bear distress Head/Eyes: bruise face/eyes Neck: non-tender, no JVD Cardiovascular: CV assessment: irregularly irregular, tachycard ia Respiratory: no distress Abdomen: soft, non-tender Genitourinary: no medina Lower extremity: LE assessment: abnormal capillary refill, abnor mal temperature, abnormal pedal pulse, abnormal peripheral pulse Musculoskeletal: swelling Right forehead s/p fal l Neuro/HAND COLLATOR: altered mental status, disoriented Skin: poor skin turgor Psychiatry: abnl judgment/insight Results Results: no new labs, vital signs stable Diagnosis, Assessment Plan Problem List/A P: 1. Altered mental status 2. Episode of unresponsiveness 3. PVD (peripheral vascular disease) HAS-BLED Score: HAS-BLED Score: Response Value uncontrolled HTN-SBP>160 Yes 1 age 65 yrs or greater: Yes 1 excess ETOH:>8drinks/wk Yes 1 Total 3 Plan discussed with: patient, family, nurse Free Text DxA P Notes Free Text DxA P Notes: 84 YO male, known to Dr. Brendon smalls with PMHx of hypertension, atrial fibrillation, and PAD who presents to ED with syncopal episode and altered mental status. He had peripheral angiogram few days ago and found to have severe PAD not amenable to percutaneous intervention. We are called for further cardiac evaluation. Jennifer is a poor historian, hx provided by patient's son in-law but he himself is not familiar with patient's history. 1. Syncope of unclear etiology echocardiogram: LVEF 50-55%, normal bubble study , AV with mild to moderate stenosis MRA neck no flow-limiting stenosis MRI brain/CTH no acute stroke neuro following 2. Severe PAD/ischemic leg 04/18/21: s/p bilateral peripheral angioplasty wi th stents placement by Dr. Oakley 1. Left superficial femoral popliteal artery ath erectomy, stent, 5 mm x 15 cm Viabahn [id number] 2. Left posterior tibial art marleny angioplasty with 3.0 and 2.5 mm. initial tibial vessel [id number] 3. Left peroneal artery angioplasty with 2.5 mm, additonal tibial vessel 75223 4. Right external iliac stent graft 6 mm X 7.5 c m viabahn [id number] 5. Left superfical femoral artery and popliteal tpa Foot color and temperature b jeanine. Still no pulse appreciated on L DP, the rest are dopplerable 3. Chronic atrial fibrillation - periodic RVR mo stly when agitated continue Xarelto and metoprolol tartrate 25 mg t wice daily DC telemetry - He has not been wearing his telem etry ideal candidate for watchman procedure - will gunnar hidalgo with Dr. Davies 4. Hypertension labile blood pressure continue losartan 100 mg daily and metoprolol ta rtrate 25 mg BID may use PRN IV hydralazine 5. Altered mental status/Behavioral disturbance - off and on most likely he has underlying dementia Head imaging - no acute findinds to explain beha vior psych on board 6. s/p Fall CT head no acute finding at 1529 Electronically Signed by Antonina Day MD on at 0827 RPT #:[id number] END OF REPORT 2021-04-21 13:21:00-00:00 [facility] Hospitalist Progress Note REPORT#:[id number] REPORT STATUS: Signed DATE:04/21/21 TIME: 1321 PATIENT: KAYLYNN MISTRY UNIT #: [id number] ROOM/BED: [place] [address] : 35 AGE: 85 SEX: M ATTEND: José Jimenez MD ADM AUTHOR: Dileep Li MD * ALL edits or amendments must be made on the [employer]/computer document * Subjective Chief Complaint: MORE CALM, FOLLOWS INSTUCTIONS Objective General Medications: Active Meds + DC'd Last 24 Hrs Sodium Polystyrene Sulfonate (KAYEXELATE) 15 GM ONCE ONE PO (DC) Methylprednisolone Sodium Succinate (Solu-Medrol 40 MG Vial) 80 MG ONCE ONE IV (DC) Sodium Chloride (SODIUM CHLORIDE 0.9%) 1,000 ML .Q10H IV Lorazepam (ATIVAN) 1 MG Q6H PRN PRN IV Sodium Chloride (SODIUM CHLORIDE) 0 ASDIR PRN IV Sterile Water (WATER FOR INJECTION) 1.2 ML ASDIR PRN IM Ziprasidone (GEODON 20MG VIAL) 10 MG Q6H PRN PRN IM Quetiapine Fumarate (SEROqueL) 12.5 MG ONCE PRN PO Trazodone HCl (DESYREL) 50 MG BEDTIME PO (DC) Metoprolol Tartrate (LOPRESSOR) 25 MG Q12HR PO Hydralazine HCl (APRESOLINE) 15 MG Q6H PRN PRN I V Sterile Water (WATER FOR INJECTION) 1.2 ML ASDIR PRN IM Folic Acid (FOLIC ACID) 1 MG DAILY PO Losartan Potassium (COZAAR) 100 MG DAILY PO Multivitamins (TAB-A-FINESSE) 1 TAB DAILY PO Tamsulosin HCl (Flomax 0.4 mg) 0.4 MG DAILY PO Thiamine HCl (THIAMINE HCL) 100 MG DAILY PO Rivaroxaban (XARELTO 20MG) 20 MG C BK PO Acetaminophen (TYLENOL) 650 MG Q4H PRN PRN PO Ondansetron HCl (ZOFRAN) 4 MG Q4H PRN PRN IV Physical Exam General appearance: chronically ill appearing, f rail, alert, awake Head/Eyes: RACCOON EYES/ECCHYMOSIS OF FACE ENT: normal ear left, normal ear right, normal n ose Neck: no JVD Cardiovascular: normal heart sounds, regular rat e rhythm Respiratory: aerating well, clear to auscultatio n, symmetric expansion, no distress Abdomen: non-tender, normal bowel sounds, soft, no distention Extremities: no edema Musculoskeletal: muscle wasting Neuro/HAND COLLATOR: altered mental status, disoriented, a lert, normal speech Skin: bruising on the face under the eyes Psychiatry: anxious Diagnosis, Assessment Plan Problem List/A P: 1. Altered mental status 2. Episode of unresponsiveness 3. HTN (hypertension) 4. BPH (benign prostatic hyperplasia) 5. PVD (peripheral vascular disease) Free Text DxA P Notes Free text DxA P notes: 84 y/o with PVD/HTN/tobacco abuse who presents with AMS after elective angiogram of his legs. 1. ACUTE DELIRIUM/METAB ENCE PHALOPATHY ON DEMENTIA (ALCOHOL INDUCED) - MRI/MRA/ Echo negative. Neuro/PSYCH seen. LP nega tive, OFF SEDATIVE, ON ATIVAN PRN, S/P STEROID X1 AT DAUGHTER'S REQUEST FOR POSSIBLE CO NTRAST INDUCED ENCEPHALOPATHY 2. FALLS/Episode of unresponsiveness - cards see n. Echo negative 3. HTN (hypertension) - cont home losartan 4. BPH (benign prostatic hyperplasia) - on floma x 5. PVD (peripheral vascular disease), S/P ATHRECTOMY/T-PA - on Xarelto. arterial blood flow with blockage in the left popliteal a rtery. Angiogram today. vasc surgery seen 6. h/o moderartly heavy etoh - 2 mixed d rinks a night. thiamine and PRN ativan 7. contrast induced encephal opathy - on IVF, DAUGHTER REQUEST A TRIAL OF STEROID DEBILITY - ASK REHAB TO EVAL, MAY NEED IRF NOW M KARIS COOPOERATIVE, ASK CM FOR REHAB EVAL on xarelto, will cover DVT prophylaxis card/neuro/vascular surgery seen check labs in am Electronically Signed by Dileep Li MD on 04/21 at 1324 RPT #:[id number] END OF REPORT 2021-04-21 11:34:00-00:00 [facility] ([facility]) Acute Rehab Consult REPORT#:[id number] REPORT STATUS: Signed DATE:04/21/21 TIME: 1134 PATIENT: KAYLYNN MISTRY UNIT #: [id number] ROOM/BED: [place] [address] : 35 AGE: 85 SEX: M ATTEND: José Jimenez MD ADM AUTHOR: Tammy Jerez PA-C * ALL edits or amendments must be made on the [employer]/computer document * History of Present Illness HPI Reason for consult: evaluation of Rehab needs PCP: PCP: Mamadou Leigh MD Etiologic diagnosis: LOC with Acute Head Trauma HPI: The patient is an 85-year-old male with history significant for peripheral vascular disease, hypertension, BPH, tobacco abu se who recently underwent a cardiac angiogram and left l ower extremity peripheral stent placement due to 100 % occlusion. Patient was discharged home the same day of the procedure. Around 10 PM patient was found to be unresponsive, not answering questions with exacerbated breathing and boggs appearance. Upon evaluation by EMS patient became oriented and refused transport. He then w as later brought to the emergency room secondary to acute altered mental status. On admission a CT of the head and brain was performed on 04/12 showing moderately heavy burden of hypodense lesions in the bilateral front oparietal white matter and right basal ganglia probably secondary to chronic small vess el ischemic disease but could not exclude acute or subacute lacunar infarcts. There is no mass-effect, midline shift or acute intracranial hemorrhage. Chest x-ray showed no acute cardiopulmonary findings. A CT angio on 111 show ed no evidence of acute pulmonary embolism. Mild bronchial wall thickeni ng present suggesting bronchitis with severe sever al lower lobe endobronchial filling deficits likely representing inflammatory debris. On adm ission neurology was consulted as well as cardiology. An echocardiogram was per formed showing ejection fraction of 50 to 55%. Systolic function was noted to be reduce d, mild to moderate aortic valve stenosis and mild regurgitation, mild mitr al regurgitation and mild to moderate tricuspid regurgitation. Within 24 hours of admission he was noted to be found on the ground after a syncopal episode in the hospital with a rapid response. The patient was given Ativan the morni ng of his fall. He was more confused and apparently was not answering or responding to questions with pauses in his breathing. He was noted to be 87% on 2 L of oxygen, blood pressure at 160/109, blood glucose of 87 . It was noted that patient had acute facial trauma with significant ecchymosis and frontal hematoma . A stat CT scan of the head was ordered. A stat CT showed no acute tentorial infarct or intracranial hemorrhage detected. MRI of the brain performed showing symmetrical expansion of the ventricles and extracerebral spaces consi stent with patient's age. Moderately advanced chronic ischemic demyelination in the cerebral white matter consistent with patient's age. No evidence of an y acute discrete cerebral lesions in particular and no abnormal signal not ed in diffusion weighted CT quality to indicate any recent or acute ischemic injury. MRI of the head and neck showed no significant stenosis or other abn ormalities of both common carotid arteries and external carotid ar teries. Neurology recommended a lumbar puncture for further evaluation of encep halopathy. Due to concern of left cool lower extremity arterial Doppler was performed b ilaterally showing no flow is seen in the left popliteal artery. There is mono phasic flow in the left posterior tibial artery and dorsalis pedis arter y. Dr. Oakley with vascular surgery brought him to the [facility] on and underwent abdominal aortogram, bilateral lower extremity ar teriogram, left superficial femoral-popliteal artery atherectomy with stent, left posterior tibial artery angioplasty, left peroneal artery angioplasty and right external iliac sten t graft and left superficial femoral artery and popliteal tPA and thrombolysi s intra-arterial. He was restarted on Xarelto. He underwent a EEG as well as lumbar puncture i n regards to patient's acute encephalopathy. He was given a dose of prednison e following his IV contrast. Due to his acute delirium he did receive several doses of Ativan as well as Geodon. Currently he is seen sitting up in bed feeding h imself. He appears to be a little ataxic and having depth perception issues with his food and feeding himself as well as complaining of blurred vision and headache. Functional Status PT evaluation: Patient/Family Goals: GET BACK TO BASELINE Modified [place] Score: No Rehabilitation Potential: Good for goals Post [place] Precautions: In Bed, rails Up Bed Alarm Freelance Programmer/App Developer Light in Reach Family/Sitter at Bedside Nursing Notified Post [place] Comments: PATIENT EDUCATION ON SAFETY P RECAUTIONS AND TO REQUEST STAFF ASSISTANCE AND HIS OWN PERSONA L ROLLATOR BRAKES NOT WORKING UNSAFE TO USE GEORGE E Discharge Plan: FDC facility Document Pain/Education: No Evaluation Type: High Complexity Reason for Eval Complexity: Impaired balance Impaired Cognition Impaired Strength Impaired Endurance Impaired Funct. Mobility Impaired Safety Awareness Impaired Coordination Impaired Self Care Skills Impaired Gait Comment: PT EVAL HIGH COMPLEXITY D/T COMORBIDIT TIES, MOD TO MAX A FNXL MOB, IMPAIRED GAIT, WILL BENEFIT FRO M PT PRIOR TO D/C FROM HOSP TO ADDRESS ABOVE MENTIONED DEFICITS PT charges: Eval PT High Comp [id number] If this is the patient's last treatment, this e ntry serves as the discharge summary: Y Start Time: 1155 Stop Time: 1205 Eval Time(min) : 0:10 Completed by: Joanie Nickerson MUSCULOSKELETAL MUSCULOSKELETAL Items determined to be OUTSIDE the Functional Limits are as follows: RANGE OF MOTION (Degrees): Active unless otherw ise noted UPPER EXTREMITIES: Yes Upper Extremity Measurements and Comments: LIMITED R SHOULDER ROM LOWER EXTREMITIES: Yes Lower Extremity Measurements and Comments: WFL SPINE: Yes Items determined to be OUTSIDE the Functional L imits are as follows: OBSERVED MUSCLE STRENGTH: Yes RIGHT UPPER EXTREMITY: Yes RUE Muscle Strength and Comments: SEE OT EVAL LEFT UPPER EXTREMITY: Yes LUE Muscle Strength and Comments: SEE OT EVAL RIGHT LOWER EXTREMITY: Yes RLE Muscle Strength and Comments: 3+/5 LEFT LOWER EXTREMITY: Yes LLE Muscle Strength and Comments: 2+/5 TO 3-/5 Specific Muscle Testing Comments / Specific Com ments: L LE WEAKNESS NEUROLOGICAL NEUROLOGICAL Items determined to be OUTSIDE the Functional Limits are as follows: TONE: Yes Left Lower Extremity: Low Tone Items determined to be OUTSIDE the Functional L imits are as follows: Items determined to be OUTSIDE the Functional L imits are as follows: SENSATION LIGHT TOUCH SENSATION Items determined to be OU TSIDE the Functional Limits are as follows: FUNCTIONAL MOBILITY Mobility: How much help from another person does the selena ent currently need: Turning from your back to your side in a flat b ed without using bedrails? 2 Moving from lying on your back to sitting on th e side of a flat bed without using bedrails: 2 Moving to and from a bed to a chair, including wheelchair: 2 Standing up from a chair using your arms (wheel chair, bedside chair); 2 To walk in hospital room? 2 [facility] Mobility Score: 10 FUNCTIONAL MOBILITY Items determined to be OUTSIDE the Functional L imits are as follows: BED MOBILITY: Yes Rolling Right/Left: Moderate Assistance Supine to Sit: Moderate Assistance Sit to Supine: Moderate Assistance Scooting in bed: Moderate Assistance Bed Mob.Cmt: MAX CUING FOR SEQUENCING, ABLE TO FOLLW COMMANDS BUT CONSTATN AND STEP BY STEPS DIRECTIONS FOR SAFETY TRANSFERS: Yes Bed to/from chair: Not Tested Sit to/from stand: Moderate Assistance Transfer Cmt: MAX CUING TACTILE AND VERABL FOR HAND PLACEMENT, NOT EASILY REDIRECTED, Items determined to be OUTSIDE the Functional L imits are as follows: BALANCE: Yes Static Standing: Moderate Assistance Dynamic Standing: Moderate Assistance Static Sitting: Minimal Assistance Dynamic Sitting: Minimal Assistance Patient Ambulatory: Yes Gait Assist: Moderate Assistance Gait Device ROLLING WALKER Ambulation Distance: 5 FT Gait Deviations: Ataxic Base of Support - Wide Decreased Madhuri Weightbearing: No Restriction Gait Pattern Cmt: PATIENT INITIALLY WALK WITH R W THEN INSISTED TO USE PERSONAL ROLLATOR BUT NOTED TO HAVE BRAKES NOT WORKING, CONSTANTLY ATTEMPTING TO PULL ON ROLLATOR HANDLES FOR SIT TO STAND, CUING FOR HAND PLACEMENT, AND MAX A TO STEADY ROLLATOR, THEN REPLACED WITH A RW BUT PATIENT COMPLAINTS OF RW " VERY STIFF IT DOESNT ROLLL" EDUCATED PATIENT AND DAUGHTER FOR SAFETY AND USE OF RW FOR NOW WheelChair Mobility Wheelchair Mobility: No . VISIUAL VISUAL DISORDERS Items determined to be OUTSIDE the Functional Limits are as follows: Vision Cmt: BRUISED AROUND BOTH EYES, FACIAL BR UISE HEARING HEARING DISORDERS Items determined to b e OUTSIDE the Functional Limits are as follows: Hard of Hearing: Yes INTEGUMENTARY . . . . CARDIORESPIRATORY CARDIO-RESPIRATORY IMPAIRMENT Items determined to be OUTSIDE the Functional L imits are as follows: Patient on Telemetry?: Yes Patient receiving Oxygen?: N PEDIATRIC INFORMATION EDEMA ASSESSMENT OT evaluation: FUNCTIONAL MOBILITY Items determined to be outside Functional Limit s are as follows: Supine to Sit: Moderate Assistance Sit to Supine: Moderate Assistance Sit to Stand: Moderate Assistance Functional Activity Tolerance TRANSFERS Chair/Wheelchair: Moderate Assistance Comments: MOD ASST W/RW BALANCE ACTIVITIES OF DAILY LIVING Activity: How much help from another person does the selena ent currently need: ACTIVITIES OF DAILY LIVING Items determined to be outside Functional Limits are as follows: Upper Body Dressing: Minimal Assistance Lower Body Dressing: Maximal Assistance Hygiene/Grooming: Minimal Assistance Feeding: Supervision or Set-up Toileting: Moderate Assistance NEUROLOGICAL NEUROLOGICAL Items determined to be out side Functional Limits are as follows: SENSATION SENSATION PRESENT Areas assessed during this ev aluation are as follows: COGNITION COGNITION Items determined to be outside Functi onal Limits are as follows: Orientation: OX4 - P/PL/T/Situation Follows Commands: 1 Step Attention Span: Impaired Problem Solving: Impaired Safety Awareness: Impaired Comments: MAX CUES FOR SAFETY, REDIRECTION; CUE S FOR SEQUENCING VISIUAL VISUAL/PERCEPTION Items determined to be outsid e Functional Limits are as follows: CARDIORESPIRATORY CARDIO-RESPIRATORY IMPAIRMENT Items determined to be OUTSIDE the Functional L imits are as follows: COMMUNICATION COMMUNICATION Items determined to be outside Fu nctional Limits are as follows: Comments: [facility] INTEGUMENTARY Integumentary Items determined to be outside Fu nctional Limits are as follows: . EDEMA ASSESSMENT TREATMENT DETAILS Plan of Care Type: Occupational Therapy Planned Interventions: Therapeutic Exercise Functional Activities PT/Caregiver Education ADL Training Amount: Once Daily . Frequency per week: 3 Precautions: FALL Occupational Therapy: Plan of Care OT Problem List: 1 Impaired Strength/ROM 5 Impaired Functional Mobil 7 Impaired ADL History Past medical history: Reports: Alcoholism/subst ab use, Atrial fibrillation, Hypertension, BPH, Chronic pain, Periph arterial disease. Additional surgical history: hydrocele testical Tonsillectomy hernia Repair appendicitis cyst behind ear Additional family history: not relavent to current illness Alcohol use: Alcohol use Drug use: Denies recreational drugs Smoking status: Smoking status for patients 13 years old or old er: Heavy tobacco smoker (2 packs per day) Date last smoked: 04/12/21 Packs per day: 1.5 Years smoked: 72 Additional social history: LIves at home alone in a H. He has walkers he states but does not use it. States that he was driving as PLOF. No stairs to enter his home. Medications: Home Medications: Medication Dose/Rte/Freq Days Qty Entered Last Max Daily Dose Reviewed LOSARTAN (COZAAR) 100 MG PO DAILY 04/13/2104/02 Strength: 100 MG TAB 0516 05 RIVAROXABAN (XARELTO) 20 MG PO DAILY 04/13/21 0 04/13/21 Strength: 20 MG TAB 0516 0517 TAMSULOSIN ER (FLOMAX) 0.4 MG PO DAILY 04/13/21 04/13/21 Strength: 0.4 MG CAP.SR.24H 05 05 Current Hospital Medications: Autonomic Drugs Sig/Tate Start time Last Medication Dose Route Stop Time Status Admin Tamsulosin HCl 0.4 MG DAILY 04/13 09 AC 04/03 0 (Flomax 0.4 mg) PO 05/13 0859 0735 Blood Formation,Coagulation Sig/Tate Start time Last Medication Dose Route Stop Time Status Admin Rivaroxaban 20 MG C BK 04/13 0800 AC 04/21 (XARELTO 20MG) PO 05/13 0759 0735 Cardiovascular Drugs Sig/Tate Start time Last Medication Dose Route Stop Time Status Admin Metoprolol Tartrate 25 MG Q12HR 04/14 1345 AC 0 04/21 (LOPRESSOR) PO 05/14 2058 0735 Hydralazine HCl 15 MG Q6H PRN PRN 04/13 1800 AC 04/20 (APRESOLINE) IV 05/13 1759 0701 Losartan Potassium 100 MG DAILY 04/13 0900 AC 04/21 (COZAAR) PO 05/13 0859 0735 Central Nervous System Agents Sig/Tate Start time Last Medication Dose Route Stop Time Status Admin Lorazepam 1 MG Q6H PRN PRN 04/15 2115 AC 04/19 (ATIVAN) IV 05/15 211 0757 Ziprasidone 10 MG Q6H PRN PRN 04/15 2030 AC (GEODON 20MG VIAL) IM 05/15 2028 07 Quetiapine Fumarate 12.5 MG ONCE PRN 04/15 1045 AC 04/15 (SEROqueL) PO 05/15 1044 1706 Trazodone HCl 50 MG BEDTIME 04/14 2100 DC 04/19 (DESYREL) PO 05/14 Acetaminophen 650 MG Q4H PRN PRN 04/13 0615 AC 04/18 (TYLENOL) PO 05/13 0614 2222 Electrolytic, Caloric, And Mirella Sig/Tate Start time Last Medication Dose Route Stop Time Status Admin Sodium Polystyrene 15 GM ONCE ONE 04/20 1700 DC 04/20 Sulfonate PO 04/20 1701 1911 (KAYEXELATE) Sodium Chloride 1,000 ML .Q10H 04/19 1530 AC (SODIUM CHLORIDE IV 05/19 1529 2202 0.9%) Sodium Chloride 0 ASDIR PRN 04/15 2045 AC (SODIUM CHLORIDE) IV 05/15 2044 Gastrointestinal Drugs Sig/Tate Start time Last Medication Dose Route Stop Time Status Admin Ondansetron HCl 4 MG Q4H PRN PRN 04/13 0615 AC (ZOFRAN) IV 05/13 0614 Hormones And Synthetic Substit Sig/Tate Start time Last Medication Dose Route Stop Time Status Admin Methylprednisolone 80 MG ONCE ONE 04/20 1500 DC 04/20 Sodium Succinate IV 04/20 1501 1558 (Solu-Medrol 40 MG Vial) Pharmaceutical Aids Sig/Tate Start time Last Medication Dose Route Stop Time Status Admin Sterile Water 1.2 ML ASDIR PRN 04/15 2030 AC (WATER FOR INJECTION) IM 05/15 2028 Sterile Water 1.2 ML ASDIR PRN 04/13 1030 AC (WATER FOR INJECTION) IM Vitamins Sig/Tate Start time Last Medication Dose Route Stop Time Status Admin Folic Acid 1 MG DAILY 04/13 899 AC 04/21 (FOLIC ACID) PO 05/13 0859 0735 Multivitamins 1 TAB DAILY 04/13 899 AC 04/21 (TAB-A-FINESSE) PO 05/13 0859 0735 Thiamine HCl 100 MG DAILY 04/13 899 AC 04/21 (THIAMINE HCL) PO 05/13 0859 0745 Allergies: Coded Allergies: No Known Allergies (04/12/21) Review of Symptoms ROS ROS comments: 14 point ROS reviewed. He co mplains of mild shoulder pain, blurred vision, mild abdonimal pain. No diarrhea, consitipati on, chest pain, SOB, nausea, vomiting. Complaind that he can;t hold himself up and core weak. Objective Physical Exam VS: Last Documented: Result Date Time Pulse Ox 96 04/21 1127 B/P 124/80 04/21 1127 B/P Mean 94.5 04/21 112 O2 Delivery Room air 04/21 1126 Temp 98.2 04/21 112 Pulse 97 04/21 112 Resp 17 04/21 112 O2 Flow Rate 2 04/18 1905 FiO2 21 04/14 0830 PATIENT WEIGHT: Weight (lb): Weight (oz): Weight (kg): 82.727 General appearance: alert, awake HEENT: trauma to the face an d head. Large heamtoma to the forehead on the right, ecchymosis to the face. Blurred vision with dept h perception off. MMM P. Neck: supple, no JVD Cardiovascular: regular rate rhythm, S1/S2, no m urmur Respiratory: aerating well, clear bilaterally Abdomen: bowel sounds present, non-distended, so ft, non-tender Skin: diffuse bruising to the face, right neck, Right Leg cool wit arterial chanegs. Musculoskeletal - general: Musculoskeletal - general: joints charan l, normal tone, range of motion normal , strength testing normal Neuro/HAND COLLATOR: alert, normal speech, no motor defici ts, oriented to self and hospital. He has ataxia noted with feeding and d rinking. Appeasr to have left facial droop and leaning to the left with weak c ore. Diagnosis, Assessment Plan Free Text A P: Pt with syncope with LOC and acute closed head t rauma. He has a large frontal hematoma with diffuse facial brusing, ataxia, bl urred vision, possible concussion and acute encephalopathy with deleriu m post recent angiogram and stent. Hx of Atrial fibrillation, PAD, HTN. PLan: Pt with acute debility and noted to be meron ruddy to the left in exam with weak core. States blurred vi jorge present, but improving. PT and OT consulted. He will need aggressive rehab with close MD follow up. MINING CAPTAIN ordered due to acute head trauma. He was previous ly IND. Cognitive evlautaion as well as BSE for any aspiration evaluation ordered. Thank you for allowing us to participate in the care of the patient. Electronically Signed by Tammy Jerez PA-C on at 1625 [facility] #:[id number] END OF REPORT 2021-04-20 16:46:00-00:00 [facility]L [facility]) Cardiology Progress Note REPORT#:[id number] REPORT STATUS: Signed DATE:04/20/21 TIME: 1646 PATIENT: KAYLYNN MISTRY UNIT #: [id number] ROOM/BED: 4431-1 : 35 AGE: 85 SEX: M ATTEND: José Jimenez MD ADM AUTHOR: Katy Jack CNP * ALL edits or amendments must be made on the [employer] document * Subjective Chief Complaint: arousable Objective General VS/I O: 24 hour I O ending at 0700: 04/20 0700 04/19 1900 Intake Total 100 Output Total Balance 100 Intake, Oral 100 Vital Signs: Date Time Temp Pulse Resp B/P B/P Pulse O2 O2 F low FiO2 Mean Ox Delivery Rate 04/20 1310 36.9 74 12 131/73 92.1 97 Room air 04/20 0915 36.9 97 12 173/93 120.0 04/20 0539 36.9 75 16 197/112 140.4 97 Room air 04/19 2236 36.9 76 16 130/69 89.4 94 Room air 04/19 2059 36.4 89 16 164/107 126.2 97 Room air 04/19 1704 36.9 80 18 128/79 95.4 96 Room air PATIENT WEIGHT: Weight (lb): Weight (oz): Weight (kg): 82.727 Medications: Active Meds + DC'd Last 24 Hrs Methylprednisolone Sodium Succinate (Solu-Medrol 40 MG Vial) 80 MG ONCE ONE IV (DC) Sodium Chloride (SODIUM CHLORIDE 0.9%) 1,000 ML .Q10H IV Lorazepam (ATIVAN) 1 MG Q6H PRN PRN IV Sodium Chloride (SODIUM CHLORIDE) 0 ASDIR PRN IV Sterile Water (WATER FOR INJECTION) 1.2 ML ASDIR PRN IM Ziprasidone (GEODON 20MG VIAL) 10 MG Q6H PRN PRN IM Quetiapine Fumarate (SEROqueL) 12.5 MG ONCE PRN PO Trazodone HCl (DESYREL) 50 MG BEDTIME PO (DC) Metoprolol Tartrate (LOPRESSOR) 25 MG Q12HR PO Hydralazine HCl (APRESOLINE) 15 MG Q6H PRN PRN I V Sterile Water (WATER FOR INJECTION) 1.2 ML ASDIR PRN IM Folic Acid (FOLIC ACID) 1 MG DAILY PO Losartan Potassium (COZAAR) 100 MG DAILY PO Multivitamins (TAB-A-FINESSE) 1 TAB DAILY PO Tamsulosin HCl (Flomax 0.4 mg) 0.4 MG DAILY PO Thiamine HCl (THIAMINE HCL) 100 MG DAILY PO Rivaroxaban (XARELTO 20MG) 20 MG C BK PO Acetaminophen (TYLENOL) 650 MG Q4H PRN PRN PO Ondansetron HCl (ZOFRAN) 4 MG Q4H PRN PRN IV Physical Exam General appearance: chronically ill appearing, f rail, no acute distress Head/Eyes: bruise face/eyes Neck: non-tender, no JVD Cardiovascular: CV assessment: irregularly irregular, tachycard ia Respiratory: no distress Abdomen: soft, non-tender Genitourinary: no medina Lower extremity: LE assessment: abnormal capillary refill, abnor mal temperature, abnormal pedal pulse, abnormal peripheral pulse Neuro/HAND COLLATOR: altered mental status, disoriented Skin: poor skin turgor Psychiatry: abnl judgment/insight Results Findings/Data: Laboratory Tests 04/20 544 Chemistry Sodium (134 - 147 mEq/L) 141 Potassium (3.4 - 5.0 mEq/L) 5.3 H Chloride (100 - 108 mEq/L) 107 Carbon Dioxide (21 - 33 mEq/l) 25 Anion Gap (0 - 20) 14 BUN (7 - 18 mg/dL) 15 Creatinine (0.6 - 1.3 mg/dL) 0.7 Glomerular Filtr Rate (70 - 80) 107.2 H Glucose (70 - 110 mg/dL) 104 Calcium (8.0 - 10.5 mg/dL) 8.9 Magnesium (1.80 - 2.40 mg/dL) 1.80 Laboratory Tests 04/20 544 Hematology WBC (4.5 - 11.0 x10 3/uL) 12.2 H RBC (4.00 - 5.60 x10 6/uL) 4.40 Hgb (12.5 - 16.9 g/dL) 14.2 Hct (37.5 - 50.7 %) 42.3 MCV (81.0 - 99.0 fL) 96.1 MCH (27.0 - 33.0 pg) 32.3 MCHC (33.0 - 37.0 g/dL) 33.6 RDW (11.5 - 14.5 %) 13.3 Plt Count (150 - 400 x10 3/uL) 151 MPV (7.0 - 9.0 fL) 12.4 H Neut % (Auto) (56.0 - 77.0 %) 78.7 H Lymph % (Auto) (14.0 - 32.0 %) 9.6 L Person % (Auto) (4.8 - 9.0 %) 10.5 H Eos % (Auto) (0.3 - 3.7 %) 0.2 L Baso % (Auto) (0.0 - 2.0 %) 0.5 Neut # (Auto) (2.0 - 7.6 x10 3/uL) 9.64 H Lymph # (Auto) (1.0 - 3.8 x10 3/uL) 1.17 Person # (Auto) (0.1 - 0.8 x10 3/uL) 1.28 H Eos # (Auto) (0.0 - 0.2 x10 3/uL) 0.02 Baso # (Auto) (0.0 - 0.2 x10 3/uL) 0.06 Abs Immat Gran (auto) (0.00 - 0.03 x10 3/uL) 0. 06 H Add Manual Diff NO Immature Gran % (0.0 - 2.0 %) 0.5 Nucleated RBC % (0 - 0 %) 0.0 Nucleated RBCs # (Man) (0.0 - 0.1 x10 3/uL) 0.0 0 Laboratory Tests 04/20 0545 Chemistry Magnesium (1.80 - 2.40 mg/dL) 1.80 Results: labs reviewed Telemetry Interpretation: afib Diagnosis, Assessment Plan Plan discussed with: patient, consultants (Dr. Kameron louie) Free Text DxA P Notes Free Text DxA P Notes: 84 YO male, known to Dr. Brendon smalls with PMHx of hypertension, atrial fibrillation, and PAD who presents to ED with syncopal episode and altered mental status. He had peripheral angiogram few days ago and found to have severe PAD not amenable to percutaneous intervention. We are called for further cardiac evaluation. Jennifer is a poor historian, hx provided by patient's son in-law but he himself is not familiar with patient's history. 1. Syncope of unclear etiology echocardiogram: LVEF 50-55%, normal bubble study , AV with mild to moderate stenosis MRA neck no flow-limiting stenosis MRI brain/CTH no acute stroke neuro following 2. Severe PAD/ischemic leg 04/18/21: s/p bilateral peripheral angioplasty wi th stents placement by Dr. Oakley 1. Left superficial femoral popliteal artery ath erectomy, stent, 5 mm x 15 cm Viabahn [id number] 2. Left posterior tibial art marleny angioplasty with 3.0 and 2.5 mm. initial tibial vessel 41459 3. Left peroneal artery angioplasty with 2.5 mm, additonal tibial vessel 99183 4. Right external iliac stent graft 6 mm X 7.5 c m viabahn 04280 5. Left superfical femoral artery and popliteal tpa Foot color and temperature b jeanine. Still no pulse appreciated on L DP, the rest are dopplerable 3. Chronic atrial fibrillation - periodic RVR mo stly when agitated continue Xarelto and metoprolol tartrate 25 mg t wice daily 4. Hypertension labile blood pressure continue losartan 100 mg daily and metoprolol ta rtrate 25 mg BID may use PRN IV hydralazine 5. Altered mental status/Behavioral disturbance - off and on most likely he has underlying dementia Head imaging - no acute findinds to explain beha vior psych on board 6. s/p Fall CT head no acute finding at 1656 Electronically Signed by Antonina Day MD on at 0827 RPT #:[id number] END OF REPORT 2021-04-20 14:58:00-00:00 [facility] ([facility]) Hospitalist Progress Note REPORT#:[id number] REPORT STATUS: Signed DATE:04/20/21 TIME: 1457 PATIENT: KAYLYNN MISTRY UNIT #: [id number] ROOM[address]BED: [address] : 35 AGE: 85 SEX: M ATTEND: José Jimenez MD ADM AUTHOR: Dileep Li MD * ALL edits or amendments must be made on the [employer]/computer document * Subjective Chief Complaint: STILL CONFUSED, SPOKE TO HIS DAUGHTER ON THE LES NE AT LENGTH, SHE READ ABOUT POSSIBLE SIDE EFFECTS OF IV CONTRAST CAUSING DELIRIUM AND WISHES TO TRY AT LEAST ONE DOSE OF STEROID AND OBSERVE. Objective General VS/I O: Vital Signs: Date Time Temp Pulse Resp B/P B/P Pulse O2 O2 F low FiO2 Mean Ox Delivery Rate 04/20 1310 98.4 74 12 131/73 92.1 97 Room air 04/20 0915 98.4 97 12 173/93 120.0 04/20 0539 98.4 75 16 197/112 140.4 97 Room air 04/19 2236 98.4 76 16 130/69 89.4 94 Room air 04/19 2059 97.5 89 16 164/107 126.2 97 Room air 04/19 1704 98.4 80 18 128/79 95.4 96 Room air 24 hour I O ending at 0700: 04/20 0700 04/19 1900 Intake Total 100 Output Total Balance 100 Intake, Oral 100 PATIENT WEIGHT: Weight (lb): Weight (oz): Weight (kg): 82.727 Medications: Active Meds + DC'd Last 24 Hrs Methylprednisolone Sodium Succinate (Solu-Medrol 40 MG Vial) 80 MG ONCE ONE IV (UNV) Sodium Chloride (SODIUM CHLORIDE 0.9%) 1,000 ML .Q10H IV Lorazepam (ATIVAN) 1 MG Q6H PRN PRN IV Lorazepam (ATIVAN) 0.5 MG ONCE PRN IV (DC) Sodium Chloride (SODIUM CHLORIDE) 0 ASDIR PRN IV Sterile Water (WATER FOR INJECTION) 1.2 ML ASDIR PRN IM Ziprasidone (GEODON 20MG VIAL) 10 MG Q6H PRN PRN IM Quetiapine Fumarate (SEROqueL) 12.5 MG ONCE PRN PO Trazodone HCl (DESYREL) 50 MG BEDTIME PO (DC) Metoprolol Tartrate (LOPRESSOR) 25 MG Q12HR PO Hydralazine HCl (APRESOLINE) 15 MG Q6H PRN PRN I V Sterile Water (WATER FOR INJECTION) 1.2 ML ASDIR PRN IM Folic Acid (FOLIC ACID) 1 MG DAILY PO Losartan Potassium (COZAAR) 100 MG DAILY PO Multivitamins (TAB-A-FINESSE) 1 TAB DAILY PO Tamsulosin HCl (Flomax 0.4 mg) 0.4 MG DAILY PO Thiamine HCl (THIAMINE HCL) 100 MG DAILY PO Rivaroxaban (XARELTO 20MG) 20 MG C BK PO Acetaminophen (TYLENOL) 650 MG Q4H PRN PRN PO Ondansetron HCl (ZOFRAN) 4 MG Q4H PRN PRN IV Physical Exam General appearance: confused, frail, alert, awak e Head/Eyes: RACCOON EYES/ECCHYMOSIS OF FACE Neck: no JVD Cardiovascular: normal heart sounds, regular rat e rhythm Respiratory: aerating well, clear to auscultatio n, symmetric expansion, no distress Abdomen: non-tender, normal bowel sounds, soft, no distention Extremities: no clubbing, no edema Neuro/HAND COLLATOR: altered mental status, disoriented, a lert, normal speech Skin: bruising on the face under the eyes Psychiatry: anxious Results Findings/Data: Laboratory Tests 04/20 544 Chemistry Sodium (134 - 147 mEq/L) 141 Potassium (3.4 - 5.0 mEq/L) 5.3 H Chloride (100 - 108 mEq/L) 107 Carbon Dioxide (21 - 33 mEq/l) 25 Anion Gap (0 - 20) 14 BUN (7 - 18 mg/dL) 15 Creatinine (0.6 - 1.3 mg/dL) 0.7 Glomerular Filtr Rate (70 - 80) 107.2 H Glucose (70 - 110 mg/dL) 104 Calcium (8.0 - 10.5 mg/dL) 8.9 Magnesium (1.80 - 2.40 mg/dL) 1.80 Laboratory Tests 04/20 544 Hematology WBC (4.5 - 11.0 x10 3/uL) 12.2 H RBC (4.00 - 5.60 x10 6/uL) 4.40 Hgb (12.5 - 16.9 g/dL) 14.2 Hct (37.5 - 50.7 %) 42.3 MCV (81.0 - 99.0 fL) 96.1 MCH (27.0 - 33.0 pg) 32.3 MCHC (33.0 - 37.0 g/dL) 33.6 RDW (11.5 - 14.5 %) 13.3 Plt Count (150 - 400 x10 3/uL) 151 MPV (7.0 - 9.0 fL) 12.4 H Neut % (Auto) (56.0 - 77.0 %) 78.7 H Lymph % (Auto) (14.0 - 32.0 %) 9.6 L Person % (Auto) (4.8 - 9.0 %) 10.5 H Eos % (Auto) (0.3 - 3.7 %) 0.2 L Baso % (Auto) (0.0 - 2.0 %) 0.5 Neut # (Auto) (2.0 - 7.6 x10 3/uL) 9.64 H Lymph # (Auto) (1.0 - 3.8 x10 3/uL) 1.17 Person # (Auto) (0.1 - 0.8 x10 3/uL) 1.28 H Eos # (Auto) (0.0 - 0.2 x10 3/uL) 0.02 Baso # (Auto) (0.0 - 0.2 x10 3/uL) 0.06 Abs Immat Gran (auto) (0.00 - 0.03 x10 3/uL) 0. 06 H Add Manual Diff NO Immature Gran % (0.0 - 2.0 %) 0.5 Nucleated RBC % (0 - 0 %) 0.0 Nucleated RBCs # (Man) (0.0 - 0.1 x10 3/uL) 0.0 0 Diagnosis, Assessment Plan Problem List/A P: 1. Altered mental status 2. Episode of unresponsiveness 3. HTN (hypertension) 4. BPH (benign prostatic hyperplasia) 5. PVD (peripheral vascular disease) Free Text DxA P Notes Free text DxA P notes: 84 y/o with PVD/HTN/tobacco abuse who presents with AMS after elective angiogram of his legs. 1. ACUTE DELIRIUM/METAB ENCEPHALOPATHY - MRI/MRA /Echo negative. Neuro/PSYCH seen. LP negative, OFF SEDATIVE, ON ATIVAN PRN 2. FALLS/Episode of unresponsiveness - cards see n. echo negative 3. HTN (hypertension) - cont home losartan 4. BPH (benign prostatic hyperplasia) - on floma x 5. PVD (peripheral vascular disease), S/P ATHRECTOMY/T-PA - on Xarelto. arterial blood flow with blockage in the left popliteal a rtery. Angiogram today. vasc surgery seen 6. h/o moderartly heavy etoh - 2 mixed d rinks a night. thiamine and PRN ativan 7. contrast induced encephal opathy - on IVF, DAUGHTER REQUEST A TRIAL OF STEROID DEBILITY - ASK REHAB TO EVAL, MAY NEED IRF WHEN MORE CLEAR on xarelto, will cover DVT prophylaxis card/neuro/vascular surgery seen check labs in am Quality: Gen Med Crit Care Advanced Care Plan 65 or Older Discussed with: patient, surrogate decis. maker Electronically Signed by Dileep Li MD on 04/20 at 1505 RPT #:[id number] END OF REPORT 2021-04-20 14:43:00-00:00 [facility] Vascular Surgery Progress Note REPORT#:[id number] REPORT STATUS: Signed DATE:04/20/21 TIME: 1443 PATIENT: KAYLYNN MISTRY UNIT #: [id number] ROOM/BED: [place] [address] : 35 AGE: 85 SEX: M ATTEND: José Jimenez MD ADM AUTHOR: Abad Oakley MD * ALL edits or amendments must be made on the [employer]/computer document * General Status post: Left leg revacularization with atherectomy and s tent Subjective HPI Patient calm but still with confusion. F oot warm. Posterio tibial artery pulse palpable. on Xarelto. Review of Systems Unable to obtain due to: ams Objective General VS/I O: Last Documented: Result Date Time Pulse Ox 97 04/20 1310 B/P 131/73 04/20 1310 B/P Mean 92.1 04/20 1310 O2 Delivery Room air 04/20 1310 Temp 98.4 04/20 1310 Pulse 74 04/20 1310 Resp 12 04/20 1310 O2 Flow Rate 2 04/18 1905 FiO2 21 04/14 0830 24 hour I O ending at 0700: 04/20 0700 04/19 1900 Intake Total 100 Output Total Balance 100 Intake, Oral 100 PATIENT WEIGHT: Weight (lb): Weight (oz): Weight (kg): 82.727 Physical Exam General appearance: no acute distress Head/Eyes: right eye anf saleem ferris ng improved, normocephalic ENT: normal ear left, normal ear right, normal n ose Neck: full range of motion, no JVD Cardiovascular: regular rate rhythm Respiratory: aerating well, symmetric expansion, no distress Abdomen: non-tender, soft, no distention Extremities: no clubbing, no cyanosis, mild may a Neuro/HAND COLLATOR: altered mental status Skin: bruising on the face under the eyes Medications: Active Meds + DC'd Last 24 Hrs Sodium Chloride (SODIUM CHLORIDE 0.9%) 1,000 ML .Q10H IV Lorazepam (ATIVAN) 1 MG Q6H PRN PRN IV Lorazepam (ATIVAN) 0.5 MG ONCE PRN IV (DC) Sodium Chloride (SODIUM CHLORIDE) 0 ASDIR PRN IV Sterile Water (WATER FOR INJECTION) 1.2 ML ASDIR PRN IM Ziprasidone (GEODON 20MG VIAL) 10 MG Q6H PRN PRN IM Quetiapine Fumarate (SEROqueL) 12.5 MG ONCE PRN PO Trazodone HCl (DESYREL) 50 MG BEDTIME PO Metoprolol Tartrate (LOPRESSOR) 25 MG Q12HR PO Hydralazine HCl (APRESOLINE) 15 MG Q6H PRN PRN I V Sterile Water (WATER FOR INJECTION) 1.2 ML ASDIR PRN IM Folic Acid (FOLIC ACID) 1 MG DAILY PO Losartan Potassium (COZAAR) 100 MG DAILY PO Multivitamins (TAB-A-FINESSE) 1 TAB DAILY PO Tamsulosin HCl (Flomax 0.4 mg) 0.4 MG DAILY PO Thiamine HCl (THIAMINE HCL) 100 MG DAILY PO Rivaroxaban (XARELTO 20MG) 20 MG C BK PO Acetaminophen (TYLENOL) 650 MG Q4H PRN PRN PO Ondansetron HCl (ZOFRAN) 4 MG Q4H PRN PRN IV Results Findings/Data: Laboratory Tests 04/20 0545 Chemistry Sodium (134 - 147 mEq/L) 141 Potassium (3.4 - 5.0 mEq/L) 5.3 H Chloride (100 - 108 mEq/L) 107 Carbon Dioxide (21 - 33 mEq/l) 25 Anion Gap (0 - 20) 14 BUN (7 - 18 mg/dL) 15 Creatinine (0.6 - 1.3 mg/dL) 0.7 Glomerular Filtr Rate (70 - 80) 107.2 H Glucose (70 - 110 mg/dL) 104 Calcium (8.0 - 10.5 mg/dL) 8.9 Magnesium (1.80 - 2.40 mg/dL) 1.80 Laboratory Tests 04/20 0545 Hematology WBC (4.5 - 11.0 x10 3/uL) 12.2 H RBC (4.00 - 5.60 x10 6/uL) 4.40 Hgb (12.5 - 16.9 g/dL) 14.2 Hct (37.5 - 50.7 %) 42.3 MCV (81.0 - 99.0 fL) 96.1 MCH (27.0 - 33.0 pg) 32.3 MCHC (33.0 - 37.0 g/dL) 33.6 RDW (11.5 - 14.5 %) 13.3 Plt Count (150 - 400 x10 3/uL) 151 MPV (7.0 - 9.0 fL) 12.4 H Neut % (Auto) (56.0 - 77.0 %) 78.7 H Lymph % (Auto) (14.0 - 32.0 %) 9.6 L Person % (Auto) (4.8 - 9.0 %) 10.5 H Eos % (Auto) (0.3 - 3.7 %) 0.2 L Baso % (Auto) (0.0 - 2.0 %) 0.5 Neut # (Auto) (2.0 - 7.6 x10 3/uL) 9.64 H Lymph # (Auto) (1.0 - 3.8 x10 3/uL) 1.17 Person # (Auto) (0.1 - 0.8 x10 3/uL) 1.28 H Eos # (Auto) (0.0 - 0.2 x10 3/uL) 0.02 Baso # (Auto) (0.0 - 0.2 x10 3/uL) 0.06 Abs Immat Gran (auto) (0.00 - 0.03 x10 3/uL) 0. 06 H Add Manual Diff NO Immature Gran % (0.0 - 2.0 %) 0.5 Nucleated RBC % (0 - 0 %) 0.0 Nucleated RBCs # (Man) (0.0 - 0.1 x10 3/uL) 0.0 0 Diagnosis, Assessment Plan Problem List/A P: 1. PVD (peripheral vascular disease) 2. Altered mental status 3. BPH (benign prostatic hyperplasia) 4. HTN (hypertension) Free Text A P: Patient with altered mental status of uncertain etiology. Can continue xarelto. Successful angiogram with persistent jackie w to left lwer extremety. Pleas follow up as outpatient after mdischarge for leon shawn. Thank you for the consult. at 1447 RPT #:[id number] END OF REPORT 2021-04-19 23:50:00-00:00 [facility] Hospitalist Progress Note REPORT#:[id number] REPORT STATUS: Signed DATE:04/19/21 TIME: 0 PATIENT: KAYLYNN MISTRY UNIT #: [id number] ROOM/BED: [place] [address] : 35 AGE: 85 SEX: M ATTEND: José Jimenez MD ADM AUTHOR: Ynes Baker MD * ALL edits or amendments must be made on the [employer]/computer document * Subjective Chief Complaint: pateint still quite agitated. daughter thinks th at it is contrast induced encephalopathy which has happened before. Objective General VS/I O: Vital Signs: Date Time Temp Pulse Resp B/P B/P Pulse O2 O2 F low FiO2 Mean Ox Delivery Rate 04/19 2235 98.4 76 16 130/69 89.4 94 Room air 04/19 2059 97.5 89 16 164/107 126.2 97 Room air 04/19 1704 98.4 80 18 128/79 95.4 96 Room air 04/19 1045 136/88 104 04/19 0803 97.9 82 18 126/81 95.8 97 04/19 0201 70 109/66 80.2 04/19 0053 78 84/52 62.5 95 04/19 0046 59 73/53 59.8 04/19 0027 97.3 89 18 94 24 hour I O ending at 0700: 04/19 0700 04/18 1900 Intake Total 150 100 Output Total Balance 150 100 Intake, Oral 150 100 Number 1 Incontinent Voids PATIENT WEIGHT: Weight (lb): Weight (oz): Weight (kg): 82.727 Medications: Active Meds + DC'd Last 24 Hrs Sodium Chloride (SODIUM CHLORIDE 0.9%) 1,000 ML .Q10H IV Sodium Chloride (SODIUM CHLORIDE 0.9%) 500 ML ANGELES NELDA ONCE ONE IV (DC) Acetaminophen (TYLENOL EXTRA STRENGTH) 1,000 MG PREOP ONCALL PO (DC) Gabapentin (NEURONTIN) 200 MG PREOP ONCALL PO (D C) Lorazepam (ATIVAN) 1 MG Q6H PRN PRN IV Lorazepam (ATIVAN) 0.5 MG ONCE PRN IV (DC) Sodium Chloride (SODIUM CHLORIDE) 0 ASDIR PRN IV Sterile Water (WATER FOR INJECTION) 1.2 ML ASDIR PRN IM Ziprasidone (GEODON 20MG VIAL) 10 MG Q6H PRN PRN IM Quetiapine Fumarate (SEROqueL) 12.5 MG ONCE PRN PO Trazodone HCl (DESYREL) 50 MG BEDTIME PO Metoprolol Tartrate (LOPRESSOR) 25 MG Q12HR PO Hydralazine HCl (APRESOLINE) 15 MG Q6H PRN PRN I V Sterile Water (WATER FOR INJECTION) 1.2 ML ASDIR PRN IM Folic Acid (FOLIC ACID) 1 MG DAILY PO Losartan Potassium (COZAAR) 100 MG DAILY PO Multivitamins (TAB-A-FINESSE) 1 TAB DAILY PO Tamsulosin HCl (Flomax 0.4 mg) 0.4 MG DAILY PO Thiamine HCl (THIAMINE HCL) 100 MG DAILY PO Rivaroxaban (XARELTO 20MG) 20 MG C BK PO Acetaminophen (TYLENOL) 650 MG Q4H PRN PRN PO Ondansetron HCl (ZOFRAN) 4 MG Q4H PRN PRN IV Physical Exam General appearance: no acute distress Head/Eyes: atraumatic, normocephalic ENT: normal ear left, normal ear right, normal n ose Neck: full range of motion, no JVD Cardiovascular: regular rate rhythm Respiratory: aerating well, clear to auscultatio n, symmetric expansion, no distress Abdomen: non-tender, normal bowel sounds, soft, no distention Extremities: no clubbing, no cyanosis, no edema Neuro/HAND COLLATOR: altered mental status Skin: bruising on the face under the eyes Diagnosis, Assessment Plan Problem List/A P: 1. Altered mental status 2. Episode of unresponsiveness 3. HTN (hypertension) 4. BPH (benign prostatic hyperplasia) 5. PVD (peripheral vascular disease) Free Text DxA P Notes Free text DxA P notes: 84 y/o with PVD/HTN/tobacco abuse who presents with AMS after elective angiogram of his legs. 1. Altered mental status - MRI/MRA/Echo negative . Neuro seen. LP negative 2. Episode of unresponsiveness - cards seen. ech o negative 3. HTN (hypertension) - cont home losartan 4. BPH (benign prostatic hyperplasia) - on floma x 5. PVD (peripheral vascular disease) - on xarelt o. arterial blood flow with blockage in the left popliteal artery. Angiogram today. vasc surgery seen 6. h/o moderartly heavy etoh - 2 mixed d rinks a night. thiamine and PRN ativan 7. contrast induced encephalopathy-on IVF on xarelto, will cover DVT prophylaxis card/neuro/vascular surgery seen check labs in am Quality: Gen Med Crit Care Advanced Care Plan 65 or Older Discussed with: patient, surrogate decis. maker Discussion included: living will, power of attor mavis Electronically Signed by Ynes Baker MD on 0 04/19/21 at 2351 RPT #:[id number] END OF REPORT 2021-04-19 12:50:00-00:00 [facility] ([facility] Neurology Progress Note REPORT#:[id number] REPORT STATUS: Signed DATE:04/19/21 TIME: 1250 PATIENT: KAYLYNN MISTRY UNIT #: [id number] ROOM/BED: 4436[address] : 35 AGE: 85 SEX: M ATTEND: José Jimenez MD ADM AUTHOR: Priti Cooper AUDIO ENGINEER * ALL edits or amendments must be made on the el [employer]/computer document * Priti Cooper 01/18/22 1250: Subjective HPI: Resting in bed, RN at bedside reporting agitated during the night and this am. Objective General VS: Last Documented: Result Date Time B/P 136/88 04/19 1045 B/P Mean 104 04/19 1045 Pulse Ox 97 04/19 0803 Temp 97.9 04/19 0803 Pulse 82 04/19 0803 Resp 18 04/19 0803 O2 Delivery Nasal cannula 04/18 1905 O2 Flow Rate 2 04/18 1905 FiO2 21 04/14 0830 PATIENT WEIGHT: Weight (lb): Weight (oz): Weight (kg): 82.727 Medications Current Home Medications LOSARTAN (COZAAR) 100 MG PO DAILY RIVAROXABAN (XARELTO) 20 MG PO DAILY TAMSULOSIN ER (FLOMAX) 0.4 MG PO DAILY Active Meds + DC'd Last 24 Hrs Sodium Chloride (SODIUM CHLORIDE 0.9%) 500 ML ANGELES NELDA ONCE ONE IV (DC) Clopidogrel Bisulfate (Plavix) 0 .STK-MED ONE .R OUTE (DC) Fentanyl Citrate (SUBLIMAZE) 0 .STK-MED ONE IV ( DC) Clopidogrel Bisulfate (Plavix) 75 MG PACU ONCE O NE PO (DC) Nitroglycerin (NITRO-DUR 0.2MG/HR) 1 PATCH ONCE ONE TRANSDERM (DC) Nitroglycerin (NITRO-DUR 0.2MG/HR) 0 .STK-MED ON E TRANSDERM (DC) Fentanyl Citrate (SUBLIMAZE) 100 MCG PACU Q10MIN PRN PRN IV (DC) Fentanyl Citrate (SUBLIMAZE) 50 MCG PACU Q10MIN PRN PRN IV (DC) Hydralazine HCl (APRESOLINE) 2 MG PACU Q10MIN NM N PRN IV (DC) Hydrocodone Bitart/Acetaminophen (NORCO 5/325) 1 TAB PACU ONCE PO (DC) Hydromorphone HCl (DILAUDID) 1 MG PACU Q10MIN NM N PRN IV (DC) Hydromorphone HCl (DILAUDID) 0.5 MG PACU Q5MIN P RN PRN IV (DC) Insulin Human Lispro (HUMALOG) 0 PACU ONCE PRN S UBQ (DC) Labetalol HCl (LABETALOL HCL) 5 MG PACU Q10MIN P RN PRN IV (DC) Meperidine HCl (DEMEROL 50MG/ML) 12.5 MG PACU ON CE PRN IV (DC) Morphine Sulfate (morphine SULFATE) 2 MG PACU Q1 0MIN PRN PRN IV (DC) Ondansetron HCl (ZOFRAN) 4 MG PACU ONCE PRN IV ( DC) Promethazine HCl (PHENERGAN) 25 MG PACU ONCE PRN IM (DC) Ropivacaine (NAROPIN 0.5% 150 MG/30mL) 150 MG DIR PRN LOCAL (DC) Tramadol HCl (ULTRAM) 50 MG PACU ONCE PO (DC) Acetaminophen (TYLENOL EXTRA STRENGTH) 1,000 MG PREOP ONCALL PO (DC) Gabapentin (NEURONTIN) 200 MG PREOP ONCALL PO (D C) Lorazepam (ATIVAN) 1 MG Q6H PRN PRN IV Lorazepam (ATIVAN) 0.5 MG ONCE PRN IV Sodium Chloride (SODIUM CHLORIDE) 0 ASDIR PRN IV Sterile Water (WATER FOR INJECTION) 1.2 ML ASDIR PRN IM Ziprasidone (GEODON 20MG VIAL) 10 MG Q6H PRN PRN IM Quetiapine Fumarate (SEROqueL) 12.5 MG ONCE PRN PO Trazodone HCl (DESYREL) 50 MG BEDTIME PO Metoprolol Tartrate (LOPRESSOR) 25 MG Q12HR PO Hydralazine HCl (APRESOLINE) 15 MG Q6H PRN PRN I V Sterile Water (WATER FOR INJECTION) 1.2 ML ASDIR PRN IM Folic Acid (FOLIC ACID) 1 MG DAILY PO Losartan Potassium (COZAAR) 100 MG DAILY PO Multivitamins (TAB-A-FINESSE) 1 TAB DAILY PO Tamsulosin HCl (Flomax 0.4 mg) 0.4 MG DAILY PO Thiamine HCl (THIAMINE HCL) 100 MG DAILY PO Rivaroxaban (XARELTO 20MG) 20 MG C BK PO Acetaminophen (TYLENOL) 650 MG Q4H PRN PRN PO Ondansetron HCl (ZOFRAN) 4 MG Q4H PRN PRN IV Physical Exam Neuro comment: GEN: Asleep, RESP: No respiratory distress, on room air. Mental Status: Resting Neuro: Limited Cranial Nerves: EOMI, No facial paresis, hea ring intact to speech, opens eyes to verbal stimuli, goes back to sleep, Does not follow commands. Motor: Normal Tone Results Findings/Data: Laboratory Tests 04/18 1425 Chemistry POC Glucose (70 - 110 MG/DL) 118 H Diagnosis, Assessment Plan Free Text A P: This is a 84 year old male with history of Hypertension, PVD and Afib(Xarelto) who was admitted for AMS and unresponsiveness x 10 minutes post procedure. Patient calm and cooperative. MRI of Brain revie wed in detail by Dr. Becerra, suggesting concern for Neurodegenerative process . Rapid progressive Dementia/Acute Encephalopathy Delirium in setting of Probable Underlying Cogni tive Impairment/Dementia 04/18: Doing better today, NA D, cooperative, speech fluent and appropriate. LP : Serologies, 14-3-3, RT QuIC- Pending. CS F Protein 83. S/P Angiogram- LLE today- PAD, Vascular following. Currently on Xarelto 20mg 04/19: Asleep at this time, RN reports patient be ing very agitated requiring ativan and later Geodon. Psych is following. Rec ent CTH- no acute findings. Serologies yet pending. S/P LLE Angiogram with Stent placement, follow vascular recommendation. Chronic Afib currently on xarelt o per Cardiology. Plan: -CT Head 04/13/21: no acute cerebral process or h emorrhage -MRI of Brain: Cortical abnormality concerning f or neurodegenerative process -LP 04/15, with CSF serologie s to include Real Time Quaking Induced Conversion r/ o CJD -MRA of neck: No significant stenosis -Continue Telemetry monitoring -Currently on folate and thiamine supplements da bin - Continue Delirium precautions: Frequent orient ation to surrounds, family etc.Blinds /Light up and on during the day and d own and off during the night. -Psych following for management of behavioral Di sturbance Disp: Maintain Delirium prec autions, more likely aggravated by prolong hospital stay. Neurology will follow peripherally. Other Medical Conditions: PAD/PVD: S/P LLE Angiogram w/stenting, Vascular following Chronic Afib: Xarelto, Cardiology Hypertension Priti Cooper, DIMPLE-AUDIO ENGINEER for Esequiel Becerra MD Neuro Hospitalist Esequiel Becerra 04/19/21 1314: Attestations Physician Attestation Agree w/findings plan: I personally reviewed all pertinent data including imaging, and formulated the plan of care together with Priti Cooper NP. Agree with above; acute behavioral disturbances and delirium continue and therefore would recommend on going SW/CM involvement for safe discharge planning given functional concerns once patient is medica lly stable. Psychiatry assistance appreciated. No further inpatient kennedi rology work-up recommended at this time, patient may follo w up in clinic 2 weeks post-discharge for discussion of pending CSF tests. Please do not hesitate to call with any questions. The total time on the date o f the encounter was 15 minutes, of which no time was overlapping with another provider. This includes [id number] time with the patient, preparation, completing documentation a nd coordination of care associated with this visit. Electronically Signed by Esequiel Becerra MD on 04/02 11/21 at 1317 at 1107 RPT #:[id number] END OF REPORT 2021-04-19 09:51:00-00:00 [facility] Cardiology Progress Note REPORT#:[id number] REPORT STATUS: Signed DATE:04/19/21 TIME: 950 PATIENT: KAYLYNN MISTRY UNIT #: [id number] ROOM/BED: [place] [address] : 35 AGE: 85 SEX: M ATTEND: José Jimenez MD ADM AUTHOR: Katy Jack CNP * ALL edits or amendments must be made on the el [employer]/computer document * Subjective Chief Complaint: still having frequent outburst of combativeness requiring sedation. Objective General VS/I O: 24 hour I O ending at 0700: 04/19 0700 04/18 1900 Intake Total 150 100 Output Total Balance 150 100 Intake, Oral 150 100 Number 1 Incontinent Voids Vital Signs: Date Time Temp Pulse Resp B/P B/P Pulse O2 O2 F low FiO2 Mean Ox Delivery Rate 04/19 0803 36.6 82 18 126/81 95.8 97 04/19 0201 70 109/66 80.2 04/19 0053 78 84/52 62.5 95 04/19 0046 59 73/53 59.8 04/19 0027 36.3 89 18 94 04/18 1905 96 18 108/76 95 Nasal 2 cannula 04/18 1835 104 16 101/68 94 Nasal 2 cannula 04/18 1805 102 22 105/66 96 Nasal 3 cannula 04/18 1735 96 20 116/74 97 Nasal 3 cannula 04/18 1705 102 17 101/60 96 Nasal 3 cannula 04/18 1635 104 14 159/58 93 Nasal 4 cannula 04/18 1620 102 21 118/71 98 Simple 5 mask 04/18 1605 110 22 131/86 96 Simple 5 mask 04/18 1550 106 15 126/68 98 Simple 5 mask 04/18 1535 102 12 116/63 100 Simple 5 mask 04/18 1520 100 18 121/73 98 Simple 5 mask 04/18 1505 94 21 135/62 94 Nasal 4 cannula 04/18 1450 94 15 147/80 98 Simple 5 mask 04/18 1445 Simple 5 mask 04/18 1435 89 20 139/65 Simple 6 mask 04/18 1430 94 22 138/63 95 Simple 6 mask 04/18 1425 88 20 124/66 97 Simple 6 mask 04/18 1420 96 16 124/65 98 Simple 6 mask 04/18 1415 36.2 90 16 128/68 99 Simple 6 mask PATIENT WEIGHT: Weight (lb): Weight (oz): Weight (kg): 82.727 Medications: Active Meds + DC'd Last 24 Hrs Sodium Chloride (SODIUM CHLORIDE 0.9%) 500 ML ANGELES NELDA ONCE ONE IV (DC) Clopidogrel Bisulfate (Plavix) 0 .STK-MED ONE .R OUTE (DC) Fentanyl Citrate (SUBLIMAZE) 0 .STK-MED ONE IV ( DC) Clopidogrel Bisulfate (Plavix) 75 MG PACU ONCE O NE PO (DC) Nitroglycerin (NITRO-DUR 0.2MG/HR) 1 PATCH ONCE ONE TRANSDERM (DC) Nitroglycerin (NITRO-DUR 0.2MG/HR) 0 .STK-MED ON E TRANSDERM (DC) Fentanyl Citrate (SUBLIMAZE) 100 MCG PACU Q10MIN PRN PRN IV (DC) Fentanyl Citrate (SUBLIMAZE) 50 MCG PACU Q10MIN PRN PRN IV (DC) Hydralazine HCl (APRESOLINE) 2 MG PACU Q10MIN NM N PRN IV (DC) Hydrocodone Bitart/Acetaminophen (NORCO 5/325) 1 TAB PACU ONCE PO (DC) Hydromorphone HCl (DILAUDID) 1 MG PACU Q10MIN NM N PRN IV (DC) Hydromorphone HCl (DILAUDID) 0.5 MG PACU Q5MIN P RN PRN IV (DC) Insulin Human Lispro (HUMALOG) 0 PACU ONCE PRN S UBQ (DC) Labetalol HCl (LABETALOL HCL) 5 MG PACU Q10MIN PRN PRN IV (DC) Meperidine HCl (DEMEROL 50MG/ML) 12.5 MG PACU ON CE PRN IV (DC) Morphine Sulfate (morphine SULFATE) 2 MG PACU Q1 0MIN PRN PRN IV (DC) Ondansetron HCl (ZOFRAN) 4 MG PACU ONCE PRN IV ( DC) Promethazine HCl (PHENERGAN) 25 MG PACU ONCE PRN IM (DC) Ropivacaine (NAROPIN 0.5% 150 MG/30mL) 150 MG DIR PRN LOCAL (DC) Tramadol HCl (ULTRAM) 50 MG PACU ONCE PO (DC) Alteplase, Recombinant (CATHFLO ACTIVASE) 0 .STK -MED ONE .ROUTE (DC) Heparin Sodium (HEPARIN SODIUM) 0 .STK-MED ONE . ROUTE (DC) Ephedrine Sulfate (ePHEDrine sulfate) 0 .STK-MED ONE .ROUTE (DC) Vasopressin (VASOSTRICT) 0 .STK-MED ONE .ROUTE ( DC) Cefazolin Sodium (KEFZOL OR ANCEF) 0 .STK-MED ON E .ROUTE (DC) Fentanyl Citrate (SUBLIMAZE) 0 .STK-MED ONE .ROU TE (DC) Dexamethasone Sodium Phosphate (DECADRON) 0 .STK -MED ONE .ROUTE (DC) Lidocaine HCl (XYLOCAINE) 0 .STK-MED ONE .ROUTE (DC) Ondansetron HCl (ZOFRAN) 0 .STK-MED ONE .ROUTE ( DC) Propofol (DIPRIVAN 200MG/20ML INJECTION) 20 ML . STK-MED ONE IV (DC) Acetaminophen (TYLENOL EXTRA STRENGTH) 1,000 MG PREOP ONCALL PO (DC) Gabapentin (NEURONTIN) 200 MG PREOP ONCALL PO (D C) Lorazepam (ATIVAN) 1 MG Q6H PRN PRN IV Lorazepam (ATIVAN) 0.5 MG ONCE PRN IV Sodium Chloride (SODIUM CHLORIDE) 0 ASDIR PRN IV Sterile Water (WATER FOR INJECTION) 1.2 ML ASDIR PRN IM Ziprasidone (GEODON 20MG VIAL) 10 MG Q6H PRN PRN IM Quetiapine Fumarate (SEROqueL) 12.5 MG ONCE PRN PO Trazodone HCl (DESYREL) 50 MG BEDTIME PO Metoprolol Tartrate (LOPRESSOR) 25 MG Q12HR PO Hydralazine HCl (APRESOLINE) 15 MG Q6H PRN PRN I V Sterile Water (WATER FOR INJECTION) 1.2 ML ASDI R PRN IM Folic Acid (FOLIC ACID) 1 MG DAILY PO Losartan Potassium (COZAAR) 100 MG DAILY PO Multivitamins (TAB-A-FINESSE) 1 TAB DAILY PO Tamsulosin HCl (Flomax 0.4 mg) 0.4 MG DAILY PO Thiamine HCl (THIAMINE HCL) 100 MG DAILY PO Rivaroxaban (XARELTO 20MG) 20 MG C BK PO Acetaminophen (TYLENOL) 650 MG Q4H PRN PRN PO Ondansetron HCl (ZOFRAN) 4 MG Q4H PRN PRN IV Physical Exam General appearance: chronically ill appearing, f rail, sedated Head/Eyes: bruise face/eyes Neck: non-tender, no JVD Cardiovascular: CV assessment: irregularly irregular, tachycard ia Respiratory: no distress Abdomen: soft, non-tender Genitourinary: no medina Lower extremity: LE assessment: abnormal capillary refill, abnor mal temperature, abnormal pedal pulse, abnormal peripheral pulse Musculoskeletal: swelling Right forehead s/p fal l Neuro/HAND COLLATOR: sedated Psychiatry: unable to evaluate Results Findings/Data: Laboratory Tests 04/18 1425 Chemistry POC Glucose (70 - 110 MG/DL) 118 H Results: no new labs, vital signs stable Telemetry Interpretation: afib with controlled rate Diagnosis, Assessment Plan Problem List/A P: 1. Altered mental status 2. Episode of unresponsiveness 3. PVD (peripheral vascular disease) Plan discussed with: nurse Free Text DxA P Notes Free Text DxA P Notes: 84 YO male, known to Dr. Brendon smalls with PMHx of hypertension, atrial fibrillation, and PAD who presents to ED with syncopal episode and altered mental status. He had peripheral angiogram few days ago and found to have severe PAD not amenable to percutaneous intervention. We are called for further cardiac evaluation. Jennifer is a poor historian, hx provided by patient's son in-law but he himself is not familiar with patient's history. 1. Syncope of unclear etiology echocardiogram: LVEF 50-55%, normal bubble study , AV with mild to moderate stenosis MRA neck no flow-limiting stenosis MRI brain/CTH no acute stroke neuro following 2. Severe PAD/ischemic leg 04/18/21: s/p bilateral peripheral angioplasty wi th stents placement 1. Left superficial femoral popliteal artery ath erectomy, stent, 5 mm x 15 cm Vi[place]ahn [id number] 2. Left posterior tibial art marleny angioplasty with 3.0 and 2.5 mm. initial tibial vessel 26601 3. Left peroneal artery angioplasty with 2.5 mm, additonal tibial vessel 15494 4. Right external iliac stent graft 6 mm X 7.5 c m viabahn 62918 5. Left superfical femoral artery and popliteal tpa Foot color and temperature better. I was able to doppler pulses on right DP, right PT, left PT. no dopplerable pulse on L DP. 3. Chronic atrial fibrillation - periodic RVR mo stly when agitated continue Xarelto added Metoprolol tartrate 25 mg BID. 4. Hypertension continue losartan 100 mg daily and metoprolol ta rtrate 25 mg BID may use PRN IV hydralazine add metoprolol tartrate 25 mg BID for control of afib rate hypotensive last night, responded to fluid bolus - most likely r/t sedation. 5. Altered mental status/Behavioral disturbance - off and on most likely he has underlying dementia Head imaging - no acute findinds to explain beha vior psych on board had to sedated again at [place] and shuttler d/t severe combativeness 6. s/p Fall CT head no acute finding at 1302 Electronically Signed by Antonina Day MD on at 8800 RPT #:[id number] END OF REPORT 2021-04-18 15:50:00-00:00 [facility] ([facility]) DT Consult Note REPORT#:[id number] REPORT STATUS: Signed DATE:04/18/21 TIME: 1550 PATIENT: KAYLYNN MISTRY UNIT #: [id number] ROOM/BED: [place] [address] : 35 AGE: 85 SEX: M ATTEND: José Jimenez MD ADM AUTHOR: Amisha Young * ALL edits or amendments must be made on the [employer] document * Amisha Young 04/18/21 1550: CONSULT NOTE Problem List/A P: 1. Altered mental status 2. Episode of unresponsiveness 3. HTN (hypertension) 4. BPH (benign prostatic hyperplasia) 5. PVD (peripheral vascular disease) Note: Psychiatry consultation requested for agitation. Came to see pt, pt in procedure. Will attempt to see tmrw. at 1551 Electronically Signed by Joao Abbott MD on 04/02 12/22 at 2210 RPT #:[id number] END OF REPORT 2021-04-18 14:00:00-00:00 [facility] ([facility]) Neurology Progress Note REPORT#:[id number] REPORT STATUS: Signed DATE:04/18/21 TIME: 1400 PATIENT: KAYLYNN MISTRY UNIT #: [id number] ROOM/BED: [place] [address] : 35 AGE: 85 SEX: M ATTEND: José Jimenez MD ADM AUTHOR: Priti Cooper AUDIO ENGINEER * ALL edits or amendments must be made on the [employer] document * Priti Cooper 04/18/21 1400: Subjective HPI: Doing better, no events overnight. Patient denedu s headaches, dizziness, neck pain, reports blurred vision to the right eye. Objective General VS: Last Documented: Result Date Time Pulse Ox 97 04/18 817 B/P 142/83 04/18 817 B/P Mean 102.6 04/18 817 Temp 97.5 01/17 0818 Pulse 65 04/18 0818 Resp 14 04/18 0818 O2 Delivery Room air 04/18 0330 FiO2 21 04/14 0830 PATIENT WEIGHT: Weight (lb): Weight (oz): Weight (kg): 82.727 Medications Current Home Medications LOSARTAN (COZAAR) 100 MG PO DAILY RIVAROXABAN (XARELTO) 20 MG PO DAILY TAMSULOSIN ER (FLOMAX) 0.4 MG PO DAILY Active Meds + DC'd Last 24 Hrs Fentanyl Citrate (SUBLIMAZE) 100 MCG PACU Q10MIN PRN PRN IV Fentanyl Citrate (SUBLIMAZE) 50 MCG PACU Q10MIN PRN PRN IV Hydralazine HCl (APRESOLINE) 2 MG PACU Q10MIN NM N PRN IV Hydrocodone Bitart/Acetaminophen (NORCO 5/325) 1 TAB PACU ONCE PO (CKD) Hydromorphone HCl (DILAUDID) 1 MG PACU Q10MIN NM N PRN IV Hydromorphone HCl (DILAUDID) 0.5 MG PACU Q5MIN P RN PRN IV Insulin Human Lispro (HUMALOG) 0 PACU ONCE PRN S UBQ Labetalol HCl (LABETALOL HCL) 5 MG PACU Q10MIN P RN PRN IV Meperidine HCl (DEMEROL 50MG/ML) 12.5 MG PACU ON CE PRN IV Morphine Sulfate (morphine SULFATE) 2 MG PACU Q1 0MIN PRN PRN IV Ondansetron HCl (ZOFRAN) 4 MG PACU ONCE PRN IV Promethazine HCl (PHENERGAN) 25 MG PACU ONCE PRN IM Ropivacaine (NAROPIN 0.5% 150 MG/30mL) 150 MG DIR PRN LOCAL Tramadol HCl (ULTRAM) 50 MG PACU ONCE PO (CKD) Alteplase, Recombinant (CATHFLO ACTIVASE) 0 .STK -MED ONE .ROUTE (DC) Heparin Sodium (HEPARIN SODIUM) 0 .STK-MED ONE . ROUTE (DC) Ephedrine Sulfate (ePHEDrine sulfate) 0 .STK-MED ONE .ROUTE (DC) Vasopressin (VASOSTRICT) 0 .STK-MED ONE .ROUTE ( DC) Cefazolin Sodium (KEFZOL OR ANCEF) 0 .STK-MED ON E .ROUTE (DC) Fentanyl Citrate (SUBLIMAZE) 0 .STK-MED ONE .ROU TE (DC) Dexamethasone Sodium Phosphate (DECADRON) 0 .STK -MED ONE .ROUTE (DC) Lidocaine HCl (XYLOCAINE) 0 .STK-MED ONE .ROUTE (DC) Ondansetron HCl (ZOFRAN) 0 .STK-MED ONE .ROUTE ( DC) Propofol (DIPRIVAN 200MG/20ML INJECTION) 20 ML . STK-MED ONE IV (DC) Acetaminophen (TYLENOL EXTRA STRENGTH) 1,000 MG PREOP ONCALL PO (CKD) Gabapentin (NEURONTIN) 200 MG PREOP ONCALL PO (C KD) Lorazepam (ATIVAN) 1 MG Q6H PRN PRN IV Lorazepam (ATIVAN) 0.5 MG ONCE PRN IV Sodium Chloride (SODIUM CHLORIDE) 0 ASDIR PRN IV Sterile Water (WATER FOR INJECTION) 1.2 ML ASDIR PRN IM Ziprasidone (GEODON 20MG VIAL) 10 MG Q6H PRN PRN IM Quetiapine Fumarate (SEROqueL) 12.5 MG ONCE PRN PO Trazodone HCl (DESYREL) 50 MG BEDTIME PO Metoprolol Tartrate (LOPRESSOR) 25 MG Q12HR PO Hydralazine HCl (APRESOLINE) 15 MG Q6H PRN PRN IV Sterile Water (WATER FOR INJECTION) 1.2 ML ASDIR PRN IM Folic Acid (FOLIC ACID) 1 MG DAILY PO Losartan Potassium (COZAAR) 100 MG DAILY PO Multivitamins (TAB-A-FINESSE) 1 TAB DAILY PO Tamsulosin HCl (Flomax 0.4 mg) 0.4 MG DAILY PO Thiamine HCl (THIAMINE HCL) 100 MG DAILY PO Rivaroxaban (XARELTO 20MG) 20 MG C BK PO Acetaminophen (TYLENOL) 650 MG Q4H PRN PRN PO Ondansetron HCl (ZOFRAN) 4 MG Q4H PRN PRN IV Physical Exam Neuro comment: GEN: Calm, cooperative RESP: No respiratory distress, on room air. Mental Status: Calm ,A,A,Ox2, Cooperative, Neuro: Limited Cranial Nerves: EOMI, No facial paresis, hearing intact to speec h Language/Speech: fluent, Motor: Normal Tone, Moves all extremities. Gait: Small steps , wide base Results Findings/Data: Laboratory Tests 04/18 0550 Chemistry Sodium (134 - 147 mEq/L) 144 Potassium (3.4 - 5.0 mEq/L) 4.0 Chloride (100 - 108 mEq/L) 111 H Carbon Dioxide (21 - 33 mEq/l) 26 Anion Gap (0 - 20) 11 BUN (7 - 18 mg/dL) 22 H Creatinine (0.6 - 1.3 mg/dL) 0.9 Glomerular Filtr Rate (70 - 80) 80.2 H Glucose (70 - 110 mg/dL) 102 Calcium (8.0 - 10.5 mg/dL) 9.3 Laboratory Tests 04/18 0550 Coagulation INR (0.8 - 1.2) 2.1 H PTT (Shira) (25.0 - 39.5 Seconds) 40.9 H PT Patient/Control Mix (9.3 - 12.9 SECONDS) 23. 7 H Laboratory Tests 04/18 0550 Hematology WBC (4.5 - 11.0 x10 3/uL) 9.4 RBC (4.00 - 5.60 x10 6/uL) 4.81 Hgb (12.5 - 16.9 g/dL) 15.5 Hct (37.5 - 50.7 %) 46.6 MCV (81.0 - 99.0 fL) 96.9 MCH (27.0 - 33.0 pg) 32.2 MCHC (33.0 - 37.0 g/dL) 33.3 RDW (11.5 - 14.5 %) 13.4 Plt Count (150 - 400 x10 3/uL) 168 MPV (7.0 - 9.0 fL) 11.1 H Neut % (Auto) (56.0 - 77.0 %) 66.7 Lymph % (Auto) (14.0 - 32.0 %) 20.6 Person % (Auto) (4.8 - 9.0 %) 10.6 H Eos % (Auto) (0.3 - 3.7 %) 0.9 Baso % (Auto) (0.0 - 2.0 %) 0.7 Neut # (Auto) (2.0 - 7.6 x10 3/uL) 6.26 Lymph # (Auto) (1.0 - 3.8 x10 3/uL) 1.93 Person # (Auto) (0.1 - 0.8 x10 3/uL) 1.00 H Eos # (Auto) (0.0 - 0.2 x10 3/uL) 0.08 Baso # (Auto) (0.0 - 0.2 x10 3/uL) 0.07 Abs Immat Gran (auto) (0.00 - 0.03 x10 3/uL) 0. 05 H Add Manual Diff NO Immature Gran % (0.0 - 2.0 %) 0.5 Nucleated RBC % (0 - 0 %) 0.0 Nucleated RBCs # (Man) (0.0 - 0.1 x10 3/uL) 0.0 0 Laboratory Tests 04/17 1525 Serology SARS-CoV-2 Ag (Rapid) (Negative) Negative Diagnosis, Assessment Plan Free Text A P: This is a 84 year old male with history of Hypertension, PVD and Afib(Xarelto) who was admitted for AMS and unresponsiveness x 10 minutes post procedure. Patient calm and cooperative. MRI of Brain revie wed in detail by Dr. Becerra, suggesting concern for Neurodegenerative process . Rapid progressive Dementia/Acute Encephalopathy Delirium in setting of Probable Underlying Cogni tive Impairment/Dementia 04/18: Doing better today, NA D, cooperative, speech fluent and appropriate. LP : Serologies, 14-3-3, RT QuIC- Pending. CS F Protein 83. S/P Angiogram- LLE today- PAD, Vascular following. Currently on Xarelto 20mg Plan: -CT Head 04/13/21: no acute cerebral process or h emorrhage -MRI of Brain: Cortical abnormality concerning f or neurodegenerative process -Check LP with CSF serologie s to include Real Time Quaking Induced Conversion r/ o CJD -MRA of neck: No significant stenosis -Pertinent labs Reviewed -Continue Telemetry monitoring -Continue folate and thiamine -Delirium precautions: Frequent orientation to s urrounds, family etc.Blinds / Light up and on during the day and down and off during the night. -Follow Hospital mediciine recommendations for a ggitation management Disp: Neurology will follow Other Medical Conditions: PAD: S/P Angiogram of LLE PVD Chronic Afib Hypertension Priti Cooper APRN-AUDIO ENGINEER for [facility] Benson Treviño 01/17/22 1918: Attestations Physician Attestation Reviewed findings plan: Reviewed the findings and plan as documented by Priti Mcdowell NP. Electronically Signed by Benson Treviño MD 04/18/21 at 1921 at 1140 RPT #:[id number] END OF REPORT 2021-04-18 11:59:00-00:00 [facility] ([facility]) Operative Note - Full REPORT#:[id number] REPORT STATUS: Signed DATE:04/18/21 TIME: 1159 PATIENT: KAYLYNN MISTRY UNIT #: [id number] ROOM/BED: [place] [address] : 35 AGE: 85 SEX: M ATTEND: José Jimenez MD ADM AUTHOR: Abad Oakley MD * ALL edits or amendments must be made on the [employer]/computer document * Operative Report ORM Surgeries: Surgery Date and Time: 04/18/2021 1500 Proposed Primary Procedure: ANGIOGRAM LOWER EXT REMITY LEFT, Start date: 04/18/21 Start time: 1230 Pre-procedure diagnosis: Atherosclerosis of [facility] [place] [place] arteries bilat eral lower extremities with rest pain, ulcers Left greater than right Post-procedure diagnosis: same Procedures performed: 1. Percutaneous ultrasound-guided active access right common femoral artery with images maintained for record [id number] 2. Abdominal aortogram 39900 3. Bilateral lower extremity arteriogram 51185 4. Left superficial femoral popliteal artery ath erectomy, stent, 5 mm x 15 cm Viabahn 87976 5. Left posterior tibial art marleny angioplasty with 3.0 and 2.5 mm. initial tibial vessel 71354 6. Left peroneal artery angioplasty with 2.5 mm, additonal tibial vessel 97567 7. Right external iliac stent graft 6 mm X 7.5 c m viabahn 52301 8. Left superfical femoral artery and popliteal tpa, aleplase, 10 mg, thrombilysis intrarterial, day infusion 37 211 Technique/Procedure: Patient is brought in the op erating prepped and draped in usual sterile manner. Percutaneous ultrasound-guided active access was obtained to the right common femoral artery with a microc atheter system and exchanged over a Glidewire to a 6 Monegasque 10 cm sheath. An omniflush catheter was p laced in the abdominal aorta and abdominal aortagram was performed. This was pulled down to the aortic bifurcation and iliac angiography was completed. Glidewire was used to extend the Omni Flush catheter down to the left common femoral artery left extremity arteriogram was completed. The patient w as then heparinized and the sheath was exchanged to a 6 Fr X 90 cm sheath to the left popliteal artery and a Hargrove cross catheter was placed into the distal posterior ti bial artery artery after crossing the occlusion. A 10 yaron side hole catheter was placed inthe femoral-popliteal arteries and 10 mg of TPA howard total colume of 30 cc was infused over a period of 30 minutes. A 0.014 run through wire was exchanged into place and 2.0 laser atherectomy was completed of the superficial femoral and entire popliteal artery. At this time th e femoral-popliteal artery distaly was treated with a 5 mm x 15 cm Viabahn stent graft post angioplasty with a 5 mm balloon. Subsequently a 3.0 mm balloon was used to angioplasty the proximal portion of the posterior tibial artery and 2.5 m m balloon angioplasty of the remaining artery to the malleolus. The wire was pulled back and the peroneal artery was intubated and 2.5 mm angioplasty was completed with improved flow. THere was plaque noted inthe tibioperoneal trunk compromising flow to both tibial outflow arteries. Thi s was ameliorated with angioplasty, however patient will have planned return to the operaing room if he presents with delayed aterial occlusion from plaque shift. Atthis time the areries are too small to treat with stents. The anterior tibial artery wa s intubated but no outflow vessels were noted on selective angiography to q ualify for angioplasty. THe sheath was pulled back tothe left common iliac a rtery and the left external iliac artery stenosis was evaluated and there wa s not enough hemodynamically significant stenosis to warant intervention. The sheath was then pulled back to the right ext ernal iliac artery and the right external iliac artery severe stenosis was treated with a 6 mm X 7.5 cm viabahn stent graft with 6 mm balloon angioplast y. A right lower extremity arteriogram was completed. A ngio-Seal device was then used to close right groin without difficulty. The patient tolerated the pr ocedure well. There are no complications. The patient was stable on dischar ge to the PACU. Primary Surgeon: Dr. Abad Oakley Diet Aid(s): none Anesthesia: general anesthesia Operative findings: Abdominal aortogram demonstrates patent abdomina l good flow extending through the celiac trunk, splenic artery, common hepatic artery and gastroduodenal artery. The superior mesenteric arteries patent all branches. Bilateral renal arteries are patent with nephrograms. In ferior mesenteric arteries patent with good antegrade flow. Bilateral common iliac jessica karthikeyan have calcified disease with plaque in the medial as pect but no hemodynamically significant stenosis at less than 30%. Remaining com mon iliac arteries are patent to bilateral internal iliac arteries and external iliac arteries. The Right internal iliac artery has critical stenosis of greater than 80% diffusely through the distal 8 cm. Severe tortuousity throughout bilateral external iliac arteries. 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 Bilateral profunda femoris arteries are patent with 40% stenosis at the ostium. Left lower extremity outflow demonstrates patent superficial femoral artery but with diffuse athsrosclerotic plaque with heterogeneous disease throughout but no hemodynamically significant stenosis until the p opliteal artery which is occluded with reconsitution of the posterior tib ial artery distally through collateral. The anterior tibial artery is occlud ed. The posterior tibial artery is patent extending down to the p lantar vessels with diffuse multifocal stenosis to 80 % through the plantar arteries.. The tibial peroneal trunk is occluded. The peroneal arter y is not well visualized but is patent in the first third. Right lower extremity arteriogram demonstrates m ultifocal superficial femoral artery and popliteal disease without hemoduynamically significant stenosis. The anterior tibial artery and p eroneal are occluded. The posterior tibial artery is patent extending down to the foot. The posterior artery has diffuse stenosis distally up to 60%. The plantar arteries are pat ent. Complications: none Estimated blood loss in ml's: none Specimens removed/altered: none Implant(s): stent graft at 1609 [facility] #:[id number] END OF REPORT 2021-04-18 11:55:00-00:00 [facility] Op Note REPORT#:[id number] REPORT STATUS: Signed DATE:04/18/21 TIME: 1155 PATIENT: KAYLYNN MISTRY UNIT #: [id number] ROOM/BED: [place] [address] : 35 AGE: 85 SEX: M ATTEND: José Jimenez MD ADM AUTHOR: Abad Oakley MD * ALL edits or amendments must be made on the el [employer]/computer document * Op/Inv Proc Note - Brief ORM Surgeries: Surgery Date and Time: 04/18/2021 1500 Proposed Primary Procedure: ANGIOGRAM LOWER EXT REMITY LEFT, Pre-procedure diagnosis: Atherosclerosis of [facility] ir[place] arteries bilat eral lower extremities with rest pain, ulcers Left greater than right Post-procedure diagnosis: same as pre procedure dx Procedures performed: 1. Percutaneous ultrasound-guided active access right common femoral artery with images maintained for record [id number] 2. Abdominal aortogram 20255 3. Bilateral lower extremity arteriogram 94189 4. Left superficial femoral popliteal artery ath erectomy, stent, 5 mm x 15 cm Viabahn 43382 5. Left posterior tibial art marleny angioplasty with 3.0 and 2.5 mm. initial tibial vessel 50708 6. Left peroneal artery angioplasty with 2.5 mm, additonal tibial vessel 17706 7. Right external iliac stent graft 6 mm X 7.5 c m viabahn 44573 8. Left superfical femoral artery and popliteal tpa, aleplase, 10 mg, thrombilysis intrarterial, infusion 37 211 Primary Surgeon: Dr. Abad Oakley Diet Aid(s): none Anesthesia: general anesthesia Findings: asAbdominal aortogram demons trates patent abdominal good flow extending through the celiac trunk, splenic artery, common hepatic artery and gastroduodenal artery. The superior mesenteric arteries patent all branches. Bilateral renal arteries are patent with nephrograms. In ferior mesenteric arteries patent with good antegrade flow. Bilateral common iliac jessica karthikeyan have calcified disease with plaque in the medial as pect but no hemodynamically significant stenosis at less than 30%. Remaining com mon iliac arteries are patent to bilateral internal iliac arteries and external iliac arteries. The Right internal iliac artery has critical stenosis of greater than 80% diffusely through the distal 8 cm. Severe tortuousity throughout bilateral external iliac arteries. 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 Bilateral profunda femoris arteries are patent with 40% stenosis at the ostium. Left lower extremity outflow demonstrates patent superficial femoral artery but with diffuse athsrosclerotic plaque with heterogeneous disease throughout but no hemodynamically significant stenosis until the p opliteal artery which is occluded with reconsitution of the posterior tib ial artery distally through collateral. The anterior tibial artery is occlud ed. The posterior tibial artery is patent extending down to the p lantar vessels with diffuse multifocal stenosis to 80 % through the plantar arteries.. The tibial peroneal trunk is occluded. The peroneal arter y is not well visualized but is patent in the first third. Right lower extremity arteriogram demonstrates m ultifocal superficial femoral artery and popliteal disease without hemoduynamically significant stenosis. The anterior tibial artery and p eroneal are occluded. The posterior tibial artery is patent extending down to the foot. The posterior artery has diffuse stenosis distally up to 60%. The plantar arteries are pat ent. Complications: none Estimated blood loss in ml's: none Specimens removed/altered: none at 1608 RPT #:[id number] END OF REPORT 2021-04-18 11:09:00-00:00 [facility] Hospitalist Progress Note REPORT#:[id number] REPORT STATUS: Signed DATE:04/18/21 TIME: 1109 PATIENT: KAYLYNN MISTRY UNIT #: [id number] ROOM/BED: [place] [address] : 35 AGE: 85 SEX: M ATTEND: José Jimenez MD ADM AUTHOR: Ynes Baker MD * ALL edits or amendments must be made on the [employer]/computer document * Subjective Chief Complaint: no more episodes of agitation overnight. angiogram today Objective General VS/I O: Vital Signs: Date Time Temp Pulse Resp B/P B/P Pulse O2 O2 F low FiO2 Mean Ox Delivery Rate 04/18 0818 97.5 65 14 142/83 102.6 97 04/18 0330 97.9 85 16 127/88 100.8 92 Room air 04/17 2330 98.2 81 16 137/88 104.2 95 Room air 04/17 2300 95 Room air 04/17 1924 97.9 78 16 123/84 97.2 99 Room air 04/17 1615 98.2 74 18 125/87 99.6 95 Room air 04/17 1143 98.2 85 18 133/94 107.4 96 Room air 24 hour I O ending at 0700: 04/18 0700 04/17 1900 Intake Total 640 Output Total Balance 640 Intake, Oral 640 Number 3 Incontinent Voids PATIENT WEIGHT: Weight (lb): Weight (oz): Weight (kg): 82.727 Medications: Active Meds + DC'd Last 24 Hrs Acetaminophen (TYLENOL EXTRA STRENGTH) 1,000 MG PREOP ONCALL PO (CKD) Gabapentin (NEURONTIN) 200 MG PREOP ONCALL PO (C KD) Lorazepam (ATIVAN) 1 MG Q6H PRN PRN IV Lorazepam (ATIVAN) 0.5 MG ONCE PRN IV Sodium Chloride (SODIUM CHLORIDE) 0 ASDIR PRN IV Sterile Water (WATER FOR INJECTION) 1.2 ML ASDIR PRN IM Ziprasidone (GEODON 20MG VIAL) 10 MG Q6H PRN PRN IM Quetiapine Fumarate (SEROqueL) 12.5 MG ONCE PRN PO Trazodone HCl (DESYREL) 50 MG BEDTIME PO Metoprolol Tartrate (LOPRESSOR) 25 MG Q12HR PO Hydralazine HCl (APRESOLINE) 15 MG Q6H PRN PRN I V Sterile Water (WATER FOR INJECTION) 1.2 ML ASDIR PRN IM Folic Acid (FOLIC ACID) 1 MG DAILY PO Losartan Potassium (COZAAR) 100 MG DAILY PO Multivitamins (TAB-A-FINESSE) 1 TAB DAILY PO Tamsulosin HCl (Flomax 0.4 mg) 0.4 MG DAILY PO Thiamine HCl (THIAMINE HCL) 100 MG DAILY PO Rivaroxaban (XARELTO 20MG) 20 MG C BK PO Acetaminophen (TYLENOL) 650 MG Q4H PRN PRN PO Ondansetron HCl (ZOFRAN) 4 MG Q4H PRN PRN IV Physical Exam General appearance: no acute distress Head/Eyes: atraumatic, normocephalic ENT: normal ear left, normal ear right, normal n ose Neck: full range of motion, no JVD Cardiovascular: regular rate rhythm Respiratory: aerating well, clear to auscultatio n, symmetric expansion, no distress Abdomen: non-tender, normal bowel sounds, soft, no distention Extremities: no clubbing, no cyanosis, no edema Neuro/HAND COLLATOR: altered mental status Skin: bruising on the face under the eyes Results Findings/Data: Laboratory Tests 04/18 0550 Chemistry Sodium (134 - 147 mEq/L) 144 Potassium (3.4 - 5.0 mEq/L) 4.0 Chloride (100 - 108 mEq/L) 111 H Carbon Dioxide (21 - 33 mEq/l) 26 Anion Gap (0 - 20) 11 BUN (7 - 18 mg/dL) 22 H Creatinine (0.6 - 1.3 mg/dL) 0.9 Glomerular Filtr Rate (70 - 80) 80.2 H Glucose (70 - 110 mg/dL) 102 Calcium (8.0 - 10.5 mg/dL) 9.3 Laboratory Tests 04/18 0550 Coagulation INR (0.8 - 1.2) 2.1 H PTT (Shira) (25.0 - 39.5 Seconds) 40.9 H PT Patient/Control Mix (9.3 - 12.9 SECONDS) 23. 7 H Laboratory Tests 04/18 0550 Hematology WBC (4.5 - 11.0 x10 3/uL) 9.4 RBC (4.00 - 5.60 x10 6/uL) 4.81 Hgb (12.5 - 16.9 g/dL) 15.5 Hct (37.5 - 50.7 %) 46.6 MCV (81.0 - 99.0 fL) 96.9 MCH (27.0 - 33.0 pg) 32.2 MCHC (33.0 - 37.0 g/dL) 33.3 RDW (11.5 - 14.5 %) 13.4 Plt Count (150 - 400 x10 3/uL) 168 MPV (7.0 - 9.0 fL) 11.1 H Neut % (Auto) (56.0 - 77.0 %) 66.7 Lymph % (Auto) (14.0 - 32.0 %) 20.6 Person % (Auto) (4.8 - 9.0 %) 10.6 H Eos % (Auto) (0.3 - 3.7 %) 0.9 Baso % (Auto) (0.0 - 2.0 %) 0.7 Neut # (Auto) (2.0 - 7.6 x10 3/uL) 6.26 Lymph # (Auto) (1.0 - 3.8 x10 3/uL) 1.93 Person # (Auto) (0.1 - 0.8 x10 3/uL) 1.00 H Eos # (Auto) (0.0 - 0.2 x10 3/uL) 0.08 Baso # (Auto) (0.0 - 0.2 x10 3/uL) 0.07 Abs Immat Gran (auto) (0.00 - 0.03 x10 3/uL) 0 .05 H Add Manual Diff NO Immature Gran % (0.0 - 2.0 %) 0.5 Nucleated RBC % (0 - 0 %) 0.0 Nucleated RBCs # (Man) (0.0 - 0.1 x10 3/uL) 0.0 0 Laboratory Tests 04/17 1525 Serology SARS-CoV-2 Ag (Rapid) (Negative) Negative Diagnosis, Assessment Plan Problem List/A P: 1. Altered mental status 2. Episode of unresponsiveness 3. HTN (hypertension) 4. BPH (benign prostatic hyperplasia) 5. PVD (peripheral vascular disease) Free Text DxA P Notes Free text DxA P notes: 84 y/o with PVD/HTN/tobacco abuse who presents with AMS after elective angiogram of his legs. 1. Altered mental status - MRI/MRA/Echo negative . Neuro seen. LP negative 2. Episode of unresponsiveness - cards seen. ech o negative 3. HTN (hypertension) - cont home losartan 4. BPH (benign prostatic hyperplasia) - on floma x 5. PVD (peripheral vascular disease) - on xarelt o. arterial blood flow with blockage in the left popliteal artery. Angiogram today. vasc surgery seen 6. h/o moderartly heavy etoh - 2 mixed d rinks a night. thiamine and PRN ativan on xarelto, will cover DVT prophylaxis card/neuro/vascular surgery seen check labs in am Quality: Gen Med Crit Care Advanced Care Plan 65 or Older Discussed with: patient, surrogate decis. maker Discussion included: living will, power of attor mavis Electronically Signed by Ynes Baker MD n 04/18/21 at 1110 RPT #:[id number] END OF REPORT 2021-04-18 09:13:00-00:00 [facility] ([facility]) Cardiology Progress Note REPORT#:[id number] REPORT STATUS: Signed DATE:04/18/21 TIME: 912 PATIENT: KAYLYNN MISTRY UNIT #: [id number] ROOM/BED: [address] : 35 AGE: 85 SEX: M ATTEND: José Jimenez MD ADM AUTHOR: Katy Jack RESEARCH GEOLOGIST * ALL edits or amendments must be made on the [employer]/computer document * Subjective Chief Complaint: off and on confused and combative Objective General VS/I O: 24 hour I O ending at 0700: 04/18 0700 04/17 1900 Intake Total 640 Output Total Balance 640 Intake, Oral 640 Number 3 Incontinent Voids Vital Signs: Date Time Temp Pulse Resp B/P B/P Pulse O2 O2 F low FiO2 Mean Ox Delivery Rate 04/18 0818 36.4 65 14 142/83 102.6 97 04/18 0330 36.6 85 16 127/88 100.8 92 Room air 04/17 2330 36.8 81 16 137/88 104.2 95 Room air 04/17 2300 95 Room air 04/17 1924 36.6 78 16 123/84 97.2 99 Room air 04/17 1615 36.8 74 18 125/87 99.6 95 Room air 04/17 1143 36.8 85 18 133/94 107.4 96 Room air PATIENT WEIGHT: Weight (lb): Weight (oz): Weight (kg): 82.727 Medications: Active Meds + DC'd Last 24 Hrs Lorazepam (ATIVAN) 1 MG Q6H PRN PRN IV Lorazepam (ATIVAN) 0.5 MG ONCE PRN IV Sodium Chloride (SODIUM CHLORIDE) 0 ASDIR PRN IV Sterile Water (WATER FOR INJECTION) 1.2 ML ASDIR PRN IM Ziprasidone (GEODON 20MG VIAL) 10 MG Q6H PRN PRN IM Quetiapine Fumarate (SEROqueL) 12.5 MG ONCE PRN PO Trazodone HCl (DESYREL) 50 MG BEDTIME PO Metoprolol Tartrate (LOPRESSOR) 25 MG Q12HR PO Hydralazine HCl (APRESOLINE) 15 MG Q6H PRN PRN I V Sterile Water (WATER FOR INJECTION) 1.2 ML ASDIR PRN IM Folic Acid (FOLIC ACID) 1 MG DAILY PO Losartan Potassium (COZAAR) 100 MG DAILY PO Multivitamins (TAB-A-FINESSE) 1 TAB DAILY PO Tamsulosin HCl (Flomax 0.4 mg) 0.4 MG DAILY PO Thiamine HCl (THIAMINE HCL) 100 MG DAILY PO Rivaroxaban (XARELTO 20MG) 20 MG C BK PO Acetaminophen (TYLENOL) 650 MG Q4H PRN PRN PO Ondansetron HCl (ZOFRAN) 4 MG Q4H PRN PRN IV Physical Exam General appearance: chronically ill appearing, f rail, no acute distress Neck: non-tender, no JVD Cardiovascular: CV assessment: irregularly irregular, tachycard ia Respiratory: no distress Abdomen: soft, non-tender Genitourinary: no medina Lower extremity: LE assessment: abnormal capillary refill, abnor mal temperature, abnormal pedal pulse, abnormal peripheral pulse Musculoskeletal: swelling Right forehead s/p fal l Neuro/HAND COLLATOR: alert Psychiatry: normal affect, normal mood Results Findings/Data: Laboratory Tests 04/18 0550 Chemistry Sodium (134 - 147 mEq/L) 144 Potassium (3.4 - 5.0 mEq/L) 4.0 Chloride (100 - 108 mEq/L) 111 H Carbon Dioxide (21 - 33 mEq/l) 26 Anion Gap (0 - 20) 11 BUN (7 - 18 mg/dL) 22 H Creatinine (0.6 - 1.3 mg/dL) 0.9 Glomerular Filtr Rate (70 - 80) 80.2 H Glucose (70 - 110 mg/dL) 102 Calcium (8.0 - 10.5 mg/dL) 9.3 Laboratory Tests 04/18 0550 Coagulation INR (0.8 - 1.2) 2.1 H PTT (Shira) (25.0 - 39.5 Seconds) 40.9 H PT Patient/Control Mix (9.3 - 12.9 SECONDS) 23. 7 H Laboratory Tests 04/18 0550 Hematology WBC (4.5 - 11.0 x10 3/uL) 9.4 RBC (4.00 - 5.60 x10 6/uL) 4.81 Hgb (12.5 - 16.9 g/dL) 15.5 Hct (37.5 - 50.7 %) 46.6 MCV (81.0 - 99.0 fL) 96.9 MCH (27.0 - 33.0 pg) 32.2 MCHC (33.0 - 37.0 g/dL) 33.3 RDW (11.5 - 14.5 %) 13.4 Plt Count (150 - 400 x10 3/uL) 168 MPV (7.0 - 9.0 fL) 11.1 H Neut % (Auto) (56.0 - 77.0 %) 66.7 Lymph % (Auto) (14.0 - 32.0 %) 20.6 Person % (Auto) (4.8 - 9.0 %) 10.6 H Eos % (Auto) (0.3 - 3.7 %) 0.9 Baso % (Auto) (0.0 - 2.0 %) 0.7 Neut # (Auto) (2.0 - 7.6 x10 3/uL) 6.26 Lymph # (Auto) (1.0 - 3.8 x10 3/uL) 1.93 Person # (Auto) (0.1 - 0.8 x10 3/uL) 1.00 H Eos # (Auto) (0.0 - 0.2 x10 3/uL) 0.08 Baso # (Auto) (0.0 - 0.2 x10 3/uL) 0.07 Abs Immat Gran (auto) (0.00 - 0.03 x10 3/uL) 0. 05 H Add Manual Diff NO Immature Gran % (0.0 - 2.0 %) 0.5 Nucleated RBC % (0 - 0 %) 0.0 Nucleated RBCs # (Man) (0.0 - 0.1 x10 3/uL) 0.0 0 Laboratory Tests 04/17 1525 Serology SARS-CoV-2 Ag (Rapid) (Negative) Negative Telemetry Interpretation: atrial fibrillation Diagnosis, Assessment Plan Plan discussed with: nurse Free Text DxA P Notes Free Text DxA P Notes: 84 YO male, known to Dr. Brendon smalls with PMHx of hypertension, atrial fibrillation, and PAD who presents to ED with syncopal episode and altered mental status. He had peripheral angiogram few days ago and found to have severe PAD not amenable to percutaneous intervention. We are called for further cardiac evaluation. Jennifer is a poor historian, hx provided by patient's son in-law but he himself is not familiar with patient's history. 1. Syncope of unclear etiology echocardiogram: LVEF 50-55%, normal bubble study , AV with mild to moderate stenosis MRA neck no flow-limiting stenosis MRI brain/CTH no acute stroke neuro following 2. Severe PVD/ischemic leg LE doppler : No flow is seen in the left poplite al artery. for peripheral angiogram today by Dr. Curtis 3. Chronic atrial fibrillation - periodic RVR mo stly when agitated continue Xarelto added Metoprolol tartrate 25 mg BID. 4. Hypertension BP acceptable except when he is agitated then it goes really high continue losartan 100 mg daily and metoprolol ta rtrate 25 mg BID may use PRN IV hydralazine add metoprolol tartrate 25 mg BID for control of afib rate 5. Altered mental status/Behavioral disturbance - off and on most likely he has underlying dementia Head imaging - no acute findinds to explain beha vior avoid ativan if possible trazodone 50 mg at night for insomnia 6. s/p Fall CT head no acute finding at 1739 Electronically Signed by Antonian Day MD on at 0631 RPT #:[id number] END OF REPORT 2021-04-16 16:27:00-00:00 [facility] REPORT#:[id number] REPORT STATUS: Signed DATE:04/16/21 TIME: 1626 PATIENT: KAYLYNN MISTRY UNIT #: [id number] ROOM/BED: [place] [address] : 35 AGE: 85 SEX: M ATTEND: José Jimenez MD ADM AUTHOR: Ynes Baker MD * ALL edits or amendments must be made on the [employer]/computer document * Subjective Chief Complaint: patient fell yesterday. received ativan prn over night-sleeping now. also has Geodon ordered. Objective General VS/I O: Vital Signs: Date Time Temp Pulse Resp B/P B/P Pulse O2 O2 F low FiO2 Mean Ox Delivery Rate 04/16 1622 97.3 68 16 125/89 101.2 97 04/16 1105 97.5 59 14 117/83 93.9 96 04/16 1002 64 106/71 82.9 04/16 0751 97.5 102 12 174/122 139.2 96 04/15 1944 109 18 127/88 100.9 96 Room air 24 hour I O ending at 0700: 04/16 0700 04/15 1900 Intake Total 240 Output Total 1 Balance 239 Intake, Oral 240 Number 5 Incontinent Voids Output, 1 Urine/Stool Mix PATIENT WEIGHT: Weight (lb): Weight (oz): Weight (kg): 82.727 Medications: Active Meds + DC'd Last 24 Hrs Lorazepam (ATIVAN) 1 MG Q6H PRN PRN IV Lorazepam (ATIVAN) 0.5 MG ONCE PRN IV Sodium Chloride (SODIUM CHLORIDE) 0 ASDIR PRN IV Sterile Water (WATER FOR INJECTION) 1.2 ML ASDIR PRN IM Ziprasidone (GEODON 20MG VIAL) 10 MG Q6H PRN PRN IM Quetiapine Fumarate (SEROqueL) 12.5 MG ONCE PRN PO Trazodone HCl (DESYREL) 50 MG BEDTIME PO Metoprolol Tartrate (LOPRESSOR) 25 MG Q12HR PO Hydralazine HCl (APRESOLINE) 15 MG Q6H PRN PRN I V Sterile Water (WATER FOR INJECTION) 1.2 ML ASDIR PRN IM Folic Acid (FOLIC ACID) 1 MG DAILY PO Losartan Potassium (COZAAR) 100 MG DAILY PO Multivitamins (TAB-A-FINESSE) 1 TAB DAILY PO Tamsulosin HCl (Flomax 0.4 mg) 0.4 MG DAILY PO Thiamine HCl (THIAMINE HCL) 100 MG DAILY PO Rivaroxaban (XARELTO 20MG) 20 MG C BK PO Acetaminophen (TYLENOL) 650 MG Q4H PRN PRN PO Ondansetron HCl (ZOFRAN) 4 MG Q4H PRN PRN IV Lorazepam (ATIVAN) 0.5 MG Q6H PRN PRN IV (DC) Sodium Chloride (SODIUM CHLORIDE) 0 ASDIR PRN IV (DC) Physical Exam General appearance: no acute distress Head/Eyes: atraumatic, normocephalic ENT: normal ear left, normal ear right, normal n ose Neck: full range of motion, no JVD Cardiovascular: regular rate rhythm Respiratory: aerating well, clear to auscultatio n, symmetric expansion, no distress Abdomen: non-tender, normal bowel sounds, soft, no distention Extremities: no clubbing, no cyanosis, no edema Neuro/HAND COLLATOR: altered mental status Results Findings/Data: Laboratory Tests 04/16 914 Chemistry Sodium (134 - 147 mEq/L) 141 Potassium (3.4 - 5.0 mEq/L) 3.7 Chloride (100 - 108 mEq/L) 109 H Carbon Dioxide (21 - 33 mEq/l) 25 Anion Gap (0 - 20) 10 BUN (7 - 18 mg/dL) 7 Creatinine (0.6 - 1.3 mg/dL) 0.8 Glomerular Filtr Rate (70 - 80) 91.9 H Glucose (70 - 110 mg/dL) 112 H Calcium (8.0 - 10.5 mg/dL) 9.2 Laboratory Tests 04/16 914 Hematology WBC (4.5 - 11.0 x10 3/uL) 10.3 RBC (4.00 - 5.60 x10 6/uL) 5.10 Hgb (12.5 - 16.9 g/dL) 16.4 Hct (37.5 - 50.7 %) 49.7 MCV (81.0 - 99.0 fL) 97.5 MCH (27.0 - 33.0 pg) 32.2 MCHC (33.0 - 37.0 g/dL) 33.0 RDW (11.5 - 14.5 %) 13.4 Plt Count (150 - 400 x10 3/uL) 152 MPV (7.0 - 9.0 fL) 10.8 H Neut % (Auto) (56.0 - 77.0 %) 73.8 Lymph % (Auto) (14.0 - 32.0 %) 16.0 Person % (Auto) (4.8 - 9.0 %) 8.6 Eos % (Auto) (0.3 - 3.7 %) 0.5 Baso % (Auto) (0.0 - 2.0 %) 0.6 Neut # (Auto) (2.0 - 7.6 x10 3/uL) 7.60 Lymph # (Auto) (1.0 - 3.8 x10 3/uL) 1.65 Person # (Auto) (0.1 - 0.8 x10 3/uL) 0.89 H Eos # (Auto) (0.0 - 0.2 x10 3/uL) 0.05 Baso # (Auto) (0.0 - 0.2 x10 3/uL) 0.06 Abs Immat Gran (auto) (0.00 - 0.03 x10 3/uL) 0. 05 H Add Manual Diff NO Immature Gran % (0.0 - 2.0 %) 0.5 Nucleated RBC % (0 - 0 %) 0.0 Nucleated RBCs # (Man) (0.0 - 0.1 x10 3/uL) 0.0 0 Diagnosis, Assessment Plan Problem List/A P: 1. Altered mental status 2. Episode of unresponsiveness 3. HTN (hypertension) 4. BPH (benign prostatic hyperplasia) 5. PVD (peripheral vascular disease) Free Text DxA P Notes Free text DxA P notes: 84 y/o with PVD/HTN/tobacco abuse who presents with AMS after elective angiogram of his legs. 1. Altered mental status - MRI/MRA/Echo negative . Neuro seen. LP negative 2. Episode of unresponsiveness - cards seen. ech o negative 3. HTN (hypertension) - cont home losartan 4. BPH (benign prostatic hyperplasia) - on floma x 5. PVD (peripheral vascular disease) - on xarelt o. arterial blood flow with blockage in the left popliteal artery. Angiogram on sunday. vasc surgery seen 6. h/o moderartly heavy etoh - 2 mixed d rinks a night. thiamine and PRN ativan on xarelto, will cover DVT prophylaxis card/neuro/vascular surgery seen labs stable Quality: Gen Med Crit Care Advanced Care Plan 65 or Older Discussed with: patient, surrogate decis. maker Discussion included: living will, power of attor mavis Electronically Signed by Ynes Baker MD o n 04/16/21 at 1628 [facility] #:[id number] END OF REPORT 2021-04-15 22:35:00-00:00 [facility] Hospitalist Progress Note REPORT#:[id number] REPORT STATUS: Signed DATE:04/15/21 TIME: 2234 PATIENT: KAYLYNN MISTRY UNIT #: [id number] ROOM/BED: [place] [address] : 35 AGE: 85 SEX: M ATTEND: José Jimenez MD ADM AUTHOR: Ynes Baker MD * ALL edits or amendments must be made on the [employer]/computer document * Subjective Chief Complaint: Patient became more agitated today. He fell and had a hematoma. He was supposed to get LP and angiogram today Objective General VS/I O: Vital Signs: Date Time Temp Pulse Resp B/P B/P Pulse O2 O2 F low FiO2 Mean Ox Delivery Rate 04/15 1944 109 18 127/88 100.9 96 Room air 04/15 1540 97.7 97 18 143/88 106.4 96 Room air 04/15 1150 97.9 71 180/103 128.5 96 04/15 1140 98.4 70 18 136/76 95.8 94 Room air 04/15 0525 97.3 68 16 142/92 108.6 98 Room air 04/14 2320 97.3 72 16 125/91 102.5 96 Room air 24 hour I O ending at 0700: 04/15 0700 04/14 1900 Intake Total 460 Output Total 300 Balance 460 -300 Intake, Oral 460 Number 1 Bowel Movements Number 2 Incontinent Voids Output, Urine 300 PATIENT WEIGHT: Weight (lb): Weight (oz): Weight (kg): 82.727 Medications: Active Meds + DC'd Last 24 Hrs Lorazepam (ATIVAN) 1 MG Q6H PRN PRN IV Lorazepam (ATIVAN) 0.5 MG ONCE PRN IV Sodium Chloride (SODIUM CHLORIDE) 0 ASDIR PRN IV Sterile Water (WATER FOR INJECTION) 1.2 ML ASDIR PRN IM Ziprasidone (GEODON 20MG VIAL) 10 MG Q6H PRN PRN IM Quetiapine Fumarate (SEROqueL) 12.5 MG ONCE PRN PO Trazodone HCl (DESYREL) 50 MG BEDTIME PO Metoprolol Tartrate (LOPRESSOR) 25 MG Q12HR PO Hydralazine HCl (APRESOLINE) 15 MG Q6H PRN PRN I V Sterile Water (WATER FOR INJECTION) 1.2 ML ASDIR PRN IM Folic Acid (FOLIC ACID) 1 MG DAILY PO Losartan Potassium (COZAAR) 100 MG DAILY PO Multivitamins (TAB-A-FINESSE) 1 TAB DAILY PO Tamsulosin HCl (Flomax 0.4 mg) 0.4 MG DAILY PO Thiamine HCl (THIAMINE HCL) 100 MG DAILY PO Rivaroxaban (XARELTO 20MG) 20 MG C BK PO Acetaminophen (TYLENOL) 650 MG Q4H PRN PRN PO Ondansetron HCl (ZOFRAN) 4 MG Q4H PRN PRN IV Lorazepam (ATIVAN) 0.5 MG Q6H PRN PRN IV (DC) Sodium Chloride (SODIUM CHLORIDE) 0 ASDIR PRN IV (DC) Physical Exam General appearance: no acute distress Head/Eyes: atraumatic, normocephalic ENT: normal ear left, normal ear right, normal n ose Neck: full range of motion, no JVD Cardiovascular: regular rate rhythm Respiratory: aerating well, clear to auscultatio n, symmetric expansion, no distress Abdomen: non-tender, normal bowel sounds, soft, no distention Extremities: no clubbing, no cyanosis, no edema Neuro/HAND COLLATOR: altered mental status Results Findings/Data: Laboratory Tests 04/15 1109 Chemistry Sodium (134 - 147 mEq/L) 142 Potassium (3.4 - 5.0 mEq/L) 4.2 Chloride (100 - 108 mEq/L) 109 H Carbon Dioxide (21 - 33 mEq/l) 27 Anion Gap (0 - 20) 10 BUN (7 - 18 mg/dL) 14 Creatinine (0.6 - 1.3 mg/dL) 0.9 Glomerular Filtr Rate (70 - 80) 80.2 H Glucose (70 - 110 mg/dL) 112 H Calcium (8.0 - 10.5 mg/dL) 8.8 Laboratory Tests 04/15 1109 Hematology WBC (4.5 - 11.0 x10 3/uL) 7.6 RBC (4.00 - 5.60 x10 6/uL) 4.44 Hgb (12.5 - 16.9 g/dL) 14.2 Hct (37.5 - 50.7 %) 43.5 MCV (81.0 - 99.0 fL) 98.0 MCH (27.0 - 33.0 pg) 32.0 MCHC (33.0 - 37.0 g/dL) 32.6 L RDW (11.5 - 14.5 %) 13.7 Plt Count (150 - 400 x10 3/uL) 135 L MPV (7.0 - 9.0 fL) 11.2 H Neut % (Auto) (56.0 - 77.0 %) 63.9 Lymph % (Auto) (14.0 - 32.0 %) 23.3 Person % (Auto) (4.8 - 9.0 %) 10.1 H Eos % (Auto) (0.3 - 3.7 %) 1.5 Baso % (Auto) (0.0 - 2.0 %) 0.7 Neut # (Auto) (2.0 - 7.6 x10 3/uL) 4.83 Lymph # (Auto) (1.0 - 3.8 x10 3/uL) 1.76 Person # (Auto) (0.1 - 0.8 x10 3/uL) 0.76 Eos # (Auto) (0.0 - 0.2 x10 3/uL) 0.11 Baso # (Auto) (0.0 - 0.2 x10 3/uL) 0.05 Abs Immat Gran (auto) (0.00 - 0.03 x10 3/uL) 0. 04 H Add Manual Diff NO Immature Gran % (0.0 - 2.0 %) 0.5 Nucleated RBC % (0 - 0 %) 0.0 Nucleated RBCs # (Man) (0.0 - 0.1 x10 3/uL) 0.0 0 Laboratory Tests 04/15 04/15 1350 1350 Other Body Source CSF Appearance (CLEAR) CLEAR CSF Color (COLORLESS) COLORLESS CSF WBC (0 - 5 MM3) 4 CSF RBC (0 - 0 MM3) 7 H CSF Cell Count Tube # TUBE #2 - GLU/PROT TUBE # 3 - CELL COUNT CSF Lymphocytes (28 - 96 %) 88 CSF Monocytes (16 - 56 %) 11 L CSF Macrophages (%) 1 CSF Glucose (40 - 80 MG/DL) 60 CSF Total Protein (15 - 45 mg/dL) 83.0 H Radiology data: Recent Impressions: CAT SCAN - CT HEAD/BRAIN W/O CONT 04/15 1227 Report Impression - Status: SIGNED Entered: 04/15/2021 1252 IMPRESSION: 1. Negative for acute intracranial injury. 2. Atrophy and chronic microvascular ischemic ch anges. Impression By: Magda Gonzalez M.D. SPECIAL PROCEDURES - PUNCTURE LUMBAR DX 04/15 13 34 Report Impression - Status: SIGNED Entered: 04/15/2021 1458 IMPRESSION: Technically successful lumbar puncture with fluo roscopic guidance. Impression By: [id number] - Alexis Douglas D.O. Diagnosis, Assessment Plan Problem List/A P: 1. Altered mental status 2. Episode of unresponsiveness 3. HTN (hypertension) 4. BPH (benign prostatic hyperplasia) 5. PVD (peripheral vascular disease) Free Text DxA P Notes Free text DxA P notes: 84 y/o with PVD/HTN/tobacco abuse who presents with AMS after elective angiogram of his legs. 1. Altered mental status - MRI/MRA/Echo negative . Neuro seen. Supposed to get LP. 2. Episode of unresponsiveness - cards seen. ech o negative 3. HTN (hypertension) - cont home losartan 4. BPH (benign prostatic hyperplasia) - on floma x 5. PVD (peripheral vascular disease) - on xarelt o. arterial blood flow with blockage in the left popliteal artery. Angiogram today. vasc surgery seen 6. h/o moderartly heavy etoh - 2 mixed d rinks a night. thiamine and PRN ativan on xarelto, will cover DVT prophylaxis card/neuro/vascular surgery seen check labs in am Quality: Gen Med Crit Care Advanced Care Plan 65 or Older Discussed with: patient, surrogate decis. maker Discussion included: living will, power of attor mavis Electronically Signed by Ynes Baker MD n 04/15/21 at 2243 RPT #:[id number] END OF REPORT 2021-04-15 13:26:00-00:00 [facility] Clinical Note REPORT#:[id number] REPORT STATUS: Signed DATE:04/15/21 TIME: 1326 PATIENT: KAYLYNN MISTRY UNIT #: [id number] ROOM/BED: G4436-1 : 35 AGE: 85 SEX: M ATTEND: José Jimenez MD ADM AUTHOR: Priti Cooper AUDIO ENGINEER * ALL edits or amendments must be made on the [employer] document * Clinical Note Note: Called to confirm with or no t patient received Xarelto this morning. Floor RN Brittanie reported he did recei ve the xarelto. He had a fall also, hit his head per ISRRAEL Gu. CT Scan of head indicated no hemorrh age, but scalp hematoma. Notified Dr. Becerra of all above, reported "ok and t o monitor closely." Called specials to notify that patient did receive xare lto this morning, spoke with niall, who confirmed that it was " ok" that patient had received xarelto prior to LP. Electronically Signed by Esequiel Becerra MD on 04/02 11/21 at 0819 at 1148 RPT #:[id number] END OF REPORT 2021-04-15 10:57:00-00:00 [facility] ([facility]) Neurology Progress Note REPORT#:[id number] REPORT STATUS: Signed DATE:04/15/21 TIME: 1057 PATIENT: KAYLYNN MISTRY UNIT #: [id number] ROOM/BED: G650-1 : 35 AGE: 85 SEX: M ATTEND: José Jimenez MD ADM AUTHOR: Priti Cooper N P * ALL edits or amendments must be made on the [employer] document * Priti Cooper 04/15/21 1057: Subjective HPI: Patient up and ambulating this am. Spoke with Alonso Dimas at bedside, who reported, patient has not been sleeping at night despite taking trazadone. He talks about things he could be doing at his home and the [employer] mail. He is scheduled for LP today and Ang iogram at 5:30 pm. Objective General VS: Last Documented: Result Date Time Pulse Ox 98 04/15 524 B/P 142/92 04/15 524 B/P Mean 108.6 04/15 524 O2 Delivery Room air 04/15 524 Temp 97.3 04/15 524 Pulse 68 04/15 524 Resp 16 04/15 524 FiO2 21 04/14 0830 PATIENT WEIGHT: Weight (lb): Weight (oz): Weight (kg): 82.727 Medications Current Home Medications LOSARTAN (COZAAR) 100 MG PO DAILY RIVAROXABAN (XARELTO) 20 MG PO DAILY TAMSULOSIN ER (FLOMAX) 0.4 MG PO DAILY Active Meds + DC'd Last 24 Hrs Quetiapine Fumarate (SEROqueL) 12.5 MG ONCE PRN PO Trazodone HCl (DESYREL) 50 MG BEDTIME PO Metoprolol Tartrate (LOPRESSOR) 25 MG Q12HR PO Hydralazine HCl (APRESOLINE) 15 MG Q6H PRN PRN I V Sterile Water (WATER FOR INJECTION) 1.2 ML ASDIR PRN IM Folic Acid (FOLIC ACID) 1 MG DAILY PO Losartan Potassium (COZAAR) 100 MG DAILY PO Multivitamins (TAB-A-FINESSE) 1 TAB DAILY PO Tamsulosin HCl (Flomax 0.4 mg) 0.4 MG DAILY PO Thiamine HCl (THIAMINE HCL) 100 MG DAILY PO Rivaroxaban (XARELTO 20MG) 20 MG C BK PO Acetaminophen (TYLENOL) 650 MG Q4H PRN PRN PO Ondansetron HCl (ZOFRAN) 4 MG Q4H PRN PRN IV Lorazepam (ATIVAN) 0.5 MG Q6H PRN PRN IV Sodium Chloride (SODIUM CHLORIDE) 0 ASDIR PRN IV Physical Exam Neuro comment: GEN: Calm, cooperative RESP: No respiratory distress, on room air. Mental Status: Calm ,A,A,Ox2, Cooperative, Neuro: Limited Cranial Nerves: EOMI, No facial paresis, hearing intact to speec h Language/Speech: fluent, Motor: Normal Tone, Moves all extremities. Gait: Small steps , wide base Results Findings/Data: Laboratory Tests 04/14 1500 Serology SARS-CoV-2 Ag (Rapid) (Negative) Negative Diagnosis, Assessment Plan Free Text A P: This is a 84 year old male with history of Hypertension, PVD and Afib(Xarelto) who was admitted for AMS and unresponsiveness x 10 minutes post procedure. Patient calm and cooperative today, family membe r at bedside. MRI of Brain reviewed in detail by Dr. Becerra , suggesting concern for Neurodegenerative process. Rapid progressive Dementia/Acute Encephalopathy Delirium in setting of Probable Underlying Cogni tive Impairment/Dementia Plan: -CT Head 04/13/21: no acute cerebral process or h emorrhage -MRI of Brain: Cortical abnormality concerning f or neurodegenerative process -Check LP with CSF serologie s to include Real Time Quaking Induced Conversion r/ o CJD -MRA of neck: No significant stenosis -Pertinent labs Reviewed -Continue Telemetry monitoring -Continue folate and thiamine -Delirium precautions: Frequent orientation to s urrounds, family etc.Blinds / Light up and on during the day and down and off during the night. -Follow Hospital mediciine recommendations for a ggitation management Disp: Anticipate LP today, Angiogram this michelle pink Neurology will follow Other Medical Conditions: PAD: S/P Angiogram of LLE PVD Chronic Afib Hypertension Priti Cooper APRN-AUDIO ENGINEER for Esequiel Becerra MD [facility] Esequiel Becerra 04/15/21 1130: Attestations Physician Attestation Agree w/findings plan: I saw and examined the patie nt, personally reviewed all pertinent data including imaging, and formulated the plan of care together with Prtii Cooper NP. Agree with above, patient is neurologica lly stable and awaiting LP for work-up of rapidly-progressive demen tia as well as left leg angiogram. Consider atypical antipsychotics if needed for agitation and perip rocedural safety. Obtain OT consultation for functional/cognitive assessment . Will follow up results of testing with further recomme ndations. Discussed with patient, patient's daughter and RN. The total time on the date o f the encounter was 20 minutes, of which no time was overlapping with another provider. This includes [id number] time with the patient, preparation, completing documentation a nd coordination of care associated with this visit. Electronically Signed by Esequiel Becerra MD on 04/02 07/22 at 1133 at 1446 [facility] #:[id number] END OF REPORT 2021-04-15 09:53:00-00:00 [facility] Progress Note REPORT#:[id number] REPORT STATUS: Signed DATE:04/15/21 TIME: 0953 PATIENT: KAYLYNN MISTRY UNIT #: [id number] ROOM/BED: [address] : 35 AGE: 85 SEX: M ATTEND: José Jimenez MD ADM AUTHOR: Katy Jack RESEARCH GEOLOGIST * ALL edits or amendments must be made on the [employer] document * Subjective Chief Complaint: Fell this morning, sustained right forehead swel lling confused at night per RN Objective General VS/I O: 24 hour I O ending at 0700: 04/15 0700 04/14 1900 Intake Total 460 Output Total 300 Balance 460 -300 Intake, Oral 460 Number 1 Bowel Movements Number 2 Incontinent Voids Output, Urine 300 Vital Signs: Date Time Temp Pulse Resp B/P B/P Pulse O2 O2 F low FiO2 Mean Ox Delivery Rate 04/15 0525 36.3 68 16 142/92 108.6 98 Room air 04/14 2320 36.3 72 16 125/91 102.5 96 Room air 04/14 1948 36.4 83 16 110/79 89.2 97 Room air 04/14 1529 36.8 74 18 104/65 78.1 94 Room air 04/14 1400 119 18 108/72 84.1 95 Room air 04/14 1115 36.6 116 18 127/79 94.6 94 Room air PATIENT WEIGHT: Weight (lb): Weight (oz): Weight (kg): 82.727 Medications: Active Meds + DC'd Last 24 Hrs Trazodone HCl (DESYREL) 50 MG BEDTIME PO Metoprolol Tartrate (LOPRESSOR) 25 MG Q12HR PO Hydralazine HCl (APRESOLINE) 15 MG Q6H PRN PRN I V Sterile Water (WATER FOR INJECTION) 1.2 ML ASDIR PRN IM Folic Acid (FOLIC ACID) 1 MG DAILY PO Losartan Potassium (COZAAR) 100 MG DAILY PO Multivitamins (TAB-A-FINESSE) 1 TAB DAILY PO Tamsulosin HCl (Flomax 0.4 mg) 0.4 MG DAILY PO Thiamine HCl (THIAMINE HCL) 100 MG DAILY PO Rivaroxaban (XARELTO 20MG) 20 MG C BK PO Acetaminophen (TYLENOL) 650 MG Q4H PRN PRN PO Ondansetron HCl (ZOFRAN) 4 MG Q4H PRN PRN IV Lorazepam (ATIVAN) 0.5 MG Q6H PRN PRN IV Sodium Chloride (SODIUM CHLORIDE) 0 ASDIR PRN IV Physical Exam General appearance: awake, no acute distress Neck: non-tender, no JVD Cardiovascular: CV assessment: irregularly irregular, tachycard ia Respiratory: no distress Abdomen: soft, non-tender Genitourinary: no medina Lower extremity: LE assessment: abnormal capillary refill, abnor mal temperature, abnormal pedal pulse, abnormal peripheral pulse Musculoskeletal: swelling Right forehead s/p fal l Neuro/HAND COLLATOR: alert Psychiatry: normal affect, normal mood Results Findings/Data: Laboratory Tests 04/14 1500 Serology SARS-CoV-2 Ag (Rapid) (Negative) Negative Radiology data: Recent Impressions: CAT SCAN - CT HEAD/BRAIN W/O CONT 04/15 1227 Report Impression - Status: SIGNED Entered: 04/15/2021 1252 IMPRESSION: 1. Negative for acute intracranial injury. 2. Atrophy and chronic microvascular ischemic ch anges. Impression By: Magda Gonzalez M.D. Results: labs reviewed, vital signs stable, rhyt hm personally rev'd Diagnosis, Assessment Plan Plan discussed with: daughter, consultants (Dr. Curtis), nurse Free Text DxA P Notes Free Text DxA P Notes: 84 YO male, known to Dr. Brendon smalls with PMHx of hypertension, atrial fibrillation, and PAD who presents to ED with syncopal episode and altered mental status. He had peripheral angiogram few days ago and found to have severe PAD not amenable to percutaneous intervention. We are called for further cardiac evaluation. Patien is a poor historian, hx provided by patient's son in-law but he himself is not familiar with patient's history. 1. Syncope of unclear etiology echocardiogram: LVEF 50-55%, normal bubble study , AV with mild to moderate stenosis MRA neck no flow-limiting stenosis MRI brain/CTH no acute stroke neuro following 2. Severe PVD/ischemic leg LE doppler : No flow is seen in the left poplite al artery. Dr. Curtis notified of the fall and forehead swelling - he will reschedule the angio to Sunday 3. Chronic atrial fibrillation - periodic RVR mo stly when agitated continue Xarelto added Metoprolol tartrate 25 mg BID. 4. Hypertension BP acceptable except when he is agitated then it goes really high continue losartan 100 mg daily and metoprolol ta rtrate 25 mg BID may use PRN IV hydralazine add metoprolol tartrate 25 mg BID for control of afib rate 5. Altered mental status/Behavioral disturbance - off and on most likely he has underlying dementia Head imaging - no acute findinds to explain beha vior avoid ativan trazodone 50 mg at night for insomnia 6. s/p Fall CT head no acute finding at 1357 Electronically Signed by Antonina Dya MD on at 0827 RPT #:[id number] END OF REPORT 2021-04-14 17:09:00-00:00 [facility] Electroencephalogram-EEG REPORT#:[id number] REPORT STATUS: Signed DATE:04/14/21 TIME: 1709 PATIENT: KAYLYNN MISTRY UNIT #: [id number] ROOM/BED: [place] [address] : 35 AGE: 85 SEX: M ATTEND: Jsoé Jimenez MD ADM AUTHOR: Katherine Mccauley MD * ALL edits or amendments must be made on the [employer]/computer document * Procedure Procedure Date of procedure: 04/14/21 Procedure performed: routine EEG Indication: seizure Impression/Conclusion: TECHNICAL SUMMARY: This is an adult electroence phalogram performed using the standard [employer] 10/20 electrode placement sy stem. One channel was used for EOG and other channel was used for ECG. FINDINGS: There is some limi tation related to artifact. The background activity shows a posterior dominant rhythm of 6-7 Hz. It is symmetric and attenuates normally with eye opening. T here were no changes with photic stimulation. There were no changes noted during periods of light sl eep. There were no definite areas of focal abnormalities or epileptiform act ivity noted. The EKG rhythm strip demonstrates an irregular r hythm and a rate of approximately 60-80 beats per minute. IMPRESSION: This patient's electroenceph alogram is abnormal in the presence of mild to moderate diffuse slo wing. This can be seen in encephalopathy. There are no definite areas of focal abnormalities or epil eptiform activity noted. Electronically Signed by Katherine Mccauley MD 04/14/21 at 1732 RPT #:[id number] END OF REPORT 2021-04-14 13:46:00-00:00 [facility] REPORT#:[id number] REPORT STATUS: Signed DATE:04/14/21 TIME: 1345 PATIENT: KAYLYNN MISTRY UNIT #: [id number] ROOM/BED: [place] [address] : 35 AGE: 85 SEX: M ATTEND: José Jimenez MD ADM AUTHOR: Priti Cooper AUDIO ENGINEER * ALL edits or amendments must be made on the [employer]/computer document * Priti Cooper 04/14/21 1346: Subjective HPI: Patient is sitting up in bed , visiting with relatives. No new events reported by RN. Objective General VS: Last Documented: Result Date Time Pulse Ox 94 04/14 1115 B/P 127/79 04/14 1115 B/P Mean 94.6 04/14 1115 O2 Delivery Room air 04/14 111 Temp 97.9 04/14 1115 Pulse 116 04/14 1115 Resp 18 04/14 1115 FiO2 21 04/14 0830 PATIENT WEIGHT: Weight (lb): Weight (oz): Weight (kg): 82.727 Medications Current Home Medications LOSARTAN (COZAAR) 100 MG PO DAILY RIVAROXABAN (XARELTO) 20 MG PO DAILY TAMSULOSIN ER (FLOMAX) 0.4 MG PO DAILY Active Meds + DC'd Last 24 Hrs Trazodone HCl (DESYREL) 50 MG BEDTIME PO Metoprolol Tartrate (LOPRESSOR) 25 MG Q12HR PO Hydralazine HCl (APRESOLINE) 15 MG Q6H PRN PRN I V Sterile Water (WATER FOR INJECTION) 1.2 ML ASDIR PRN IM Folic Acid (FOLIC ACID) 1 MG DAILY PO Losartan Potassium (COZAAR) 100 MG DAILY PO Multivitamins (TAB-A-FINESSE) 1 TAB DAILY PO Tamsulosin HCl (Flomax 0.4 mg) 0.4 MG DAILY PO Thiamine HCl (THIAMINE HCL) 100 MG DAILY PO Rivaroxaban (XARELTO 20MG) 20 MG C BK PO Acetaminophen (TYLENOL) 650 MG Q4H PRN PRN PO Ondansetron HCl (ZOFRAN) 4 MG Q4H PRN PRN IV Lorazepam (ATIVAN) 0.5 MG Q6H PRN PRN IV Sodium Chloride (SODIUM CHLORIDE) 0 ASDIR PRN IV Sodium Chloride (SODIUM CHLORIDE) 0 ASDIR PRN IV (DC) Physical Exam Neuro comment: GEN: Calm, cooperative RESP: No respiratory distress, on room air. Mental Status:Calm ,A,A,Ox2. Neuro: Limited Cranial Nerves: EOMI, No facial paresis Language/Speech: fluent, Motor: Normal Tone, Moves all extremities. Results Findings/Data: Laboratory Tests 04/14 0625 Chemistry Sodium (134 - 147 mEq/L) 140 Potassium (3.4 - 5.0 mEq/L) 3.8 Chloride (100 - 108 mEq/L) 109 H Carbon Dioxide (21 - 33 mEq/l) 26 Anion Gap (0 - 20) 9 BUN (7 - 18 mg/dL) 13 Creatinine (0.6 - 1.3 mg/dL) 0.9 Glomerular Filtr Rate (70 - 80) 80.4 H Glucose (70 - 110 mg/dL) 131 H Calcium (8.0 - 10.5 mg/dL) 8.8 Laboratory Tests 04/14 0625 Hematology WBC (4.5 - 11.0 x10 3/uL) 9.0 RBC (4.00 - 5.60 x10 6/uL) 4.76 Hgb (12.5 - 16.9 g/dL) 15.2 Hct (37.5 - 50.7 %) 45.6 MCV (81.0 - 99.0 fL) 95.8 MCH (27.0 - 33.0 pg) 31.9 MCHC (33.0 - 37.0 g/dL) 33.3 RDW (11.5 - 14.5 %) 13.7 Plt Count (150 - 400 x10 3/uL) 150 MPV (7.0 - 9.0 fL) 11.6 H Neut % (Auto) (56.0 - 77.0 %) 62.0 Lymph % (Auto) (14.0 - 32.0 %) 25.9 Person % (Auto) (4.8 - 9.0 %) 10.3 H Eos % (Auto) (0.3 - 3.7 %) 1.0 Baso % (Auto) (0.0 - 2.0 %) 0.6 Neut # (Auto) (2.0 - 7.6 x10 3/uL) 5.55 Lymph # (Auto) (1.0 - 3.8 x10 3/uL) 2.32 Person # (Auto) (0.1 - 0.8 x10 3/uL) 0.92 H Eos # (Auto) (0.0 - 0.2 x10 3/uL) 0.09 Baso # (Auto) (0.0 - 0.2 x10 3/uL) 0.05 Abs Immat Gran (auto) (0.00 - 0.03 x10 3/uL) 0. 02 Add Manual Diff NO Immature Gran % (0.0 - 2.0 %) 0.2 Nucleated RBC % (0 - 0 %) 0.0 Nucleated RBCs # (Man) (0.0 - 0.1 x10 3/uL) 0.0 0 Radiology Data: Recent Impressions: MAGNETIC RESONANCE IMAGING - MRA NECK W/O CONT 0 04/13 1620 Report Impression - Status: SIGNED Entered: 04/13/2021 2046 IMPRESSION: There is no definite evidence of significant christian nosis or other abnormality of both common carotid arteries and the visible portions both internal and external carotid jessica karthikeyan are intact without significant stenosis or other abnormalit y. REFERENCES: NASCET CRITERIA. The degree of internal carotid artery stenosis is based on NASCET criteria. Normal is no stenosis. Mild is less than 50% stenosis. Moderate is 50-69% stenosis. Sever e is 70% to 99% stenosis. Total occlusion is no detectable paten t lumen. Impression By: [email or web address] Kelsi Cai MAGNETIC RESONANCE IMAGING - MRA HEAD W/O CONTRA ST 04/13 1620 Report Impression - Status: SIGNED Entered: 04/13/2021 1820 IMPRESSION: No stenosis or occlusion. Impression By: Kelsi Machuca MAGNETIC RESONANCE IMAGING - MRI BRAIN W/O CONT 04/13 1620 Report Impression - Status: SIGNED Entered: 04/13/2021 1752 IMPRESSION: No acute findings. Symmetrical expansion of the ventricles and extracerebral spaces, consistent with the patien t's age Moderately advanced chronic ischemic demyelinati on in the cerebral white matter is also consistent with the patient 's age. There is no evidence of any discrete cerebral le jorge and in particular, no abnormal signal is noted on the d iffusion-weighted sequence to indicate any recent or acute ischemi c injury. No other abnormalities of the brain are seen. Impression By: [email or web address] Kelsi Cai ULTRASOUND - DOP ART SGL LEVEL HILARIO 04/13 1658 Report Impression - Status: SIGNED Entered: 04/13/2021 1716 IMPRESSION: No flow is seen in the left popliteal artery. Th ere is monophasic flow in the left posterior tibial artery and geovanny salis pedis artery. Impression By: [id number] - Alexis Douglas D.O. Diagnosis, Assessment Plan Free Text A P: This is a 84 year old male with history of Hypertension, PVD and Afib(Xarelto) who was admitted for AMS and unresponsiveness x 10 minutes post procedure. Patient calm and cooperative today, family membe r at bedside. MRI of Brain reviewed in detail by Dr. Becerra , suggesting concern for Neurodegenerative process. Rapid progressive Dementia/Acute Encephalopathy Delirium in setting of Probable Underlying Cogni tive Impairment/Dementia Plan: -Stat CT Head : no acute cerebral process or hem orrhage -MRI of Brain: Cortical abnormality concerning f or neurodegenerative process -Check LP with CSF serologie s to include Real Time Quaking Induced Conversion r/ o CJD -MRA of neck: No significant stenosis -Pertinent labs Reviewed -Continue Telemetry monitoring -Continue folate and thiamine -Delirium precautions: Frequent orientation to s urrounds, family etc.Blinds / Light up and on during the day and down and off during the night. -Follow Hospital mediciine recommendations Disp: Neurology will follow Other Medical Conditions: PAD: S/P Angiogram of LLE PVD Chronic Afib Hypertension Priti Cooper APRN-AUDIO ENGINEER for Esequiel Becerra [facility] Esequiel Becerra 04/14/21 1413: Attestations Physician Attestation Agree w/findings plan: I saw and examined the patie nt, personally reviewed all pertinent data including imaging, and formulated the plan of care together with Priti Cooper NP. 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 Patient toda y is much more alert, appropriate, and conversant. MRI brain reviewed and is no table for patchy cortical ribboning on DWI in bilateral frontal, pa rietal and temporal lobes, the etiology of which is unclear but in view of history may be related to some transient hypoxic or metabolic disturbance. Given the history of worsening cognition, however, would recommend evaluation for rap idly-progressive dementia to include CSF examination for protein 14-3-3, RT-QuiC and total tau, and routine EEG to look for findings associated with sporadic CJD (slowing, FIRDA, pe riodic sharp wave complexes, etc.). Will continue to follow. Discusse d with patient, patient's daughter and RN. The total time on the date o f the encounter was 30 minutes, of which no time was overlapping with another provider. This includes zivc-sw-yife time with the patient, preparation, completing documentation a nd coordination of care associated with this visit. Electronically Signed by Esequiel Becerra MD on 04/02 06/21 at 4692 at 0559 [facility] #:[id number] END OF REPORT 2021-04-14 13:16:00-00:00 [facility] ([facility]) Neurology Progress Note REPORT#:[id number] REPORT STATUS: Signed DATE:04/14/21 TIME: 1316 PATIENT: KAYLYNN MISTRY UNIT #: [id number] ROOM/BED: [place] [address] : 35 AGE: 85 SEX: M ATTEND: José Jimenez MD ADM AUTHOR: Priti Cooper P * ALL edits or amendments must be made on the [employer] document * at 1415 RPT #:[id number] END OF REPORT 2021-04-14 09:51:00-00:00 [facility] ([facility]) Hospitalist Progress Note REPORT#:[id number] REPORT STATUS: Signed DATE:04/14/21 TIME: 950 PATIENT: KAYLYNN MISTRY UNIT #: [id number] ROOM/BED: [place] [address] : 35 AGE: 85 SEX: M ATTEND: José Jimenez MD ADM AUTHOR: Ynes Baker MD * ALL edits or amendments must be made on the [employer] document * Subjective Chief Complaint: no acute complaints. Objective General VS/I O: Vital Signs: Date Time Temp Pulse Resp B/P B/P Pulse O2 O2 F low FiO2 Mean Ox Delivery Rate 04/14 0658 98.6 63 18 144/84 104.0 95 Room air 04/13 2310 97.9 79 20 143/87 105.8 97 04/13 1913 97.7 116 20 127/74 91.5 96 04/13 1807 57 16 178/98 124.7 04/13 1743 98.1 76 18 183/106 131 99 04/13 1313 86 18 94 04/13 1158 98.6 36 18 133/75 94.5 97 Room air 24 hour I O ending at 0700: 04/14 0700 04/13 1900 Intake Total Output Total 200 Balance -200 Number 1 Bowel Movements Number 2 Incontinent Voids Output, Urine 200 PATIENT WEIGHT: Weight (lb): Weight (oz): Weight (kg): 82.727 Medications: Active Meds + DC'd Last 24 Hrs Hydralazine HCl (APRESOLINE) 15 MG Q6H PRN PRN I V Sterile Water (WATER FOR INJECTION) 1.2 ML ASDIR PRN IM Ziprasidone (GEODON 20MG VIAL) 10 MG ONCE ONE IM (DC) Folic Acid (FOLIC ACID) 1 MG DAILY PO Losartan Potassium (COZAAR) 100 MG DAILY PO Multivitamins (TAB-A-FINESSE) 1 TAB DAILY PO Tamsulosin HCl (Flomax 0.4 mg) 0.4 MG DAILY PO Thiamine HCl (THIAMINE HCL) 100 MG DAILY PO Rivaroxaban (XARELTO 20MG) 20 MG C BK PO Acetaminophen (TYLENOL) 650 MG Q4H PRN PRN PO Ondansetron HCl (ZOFRAN) 4 MG Q4H PRN PRN IV Lorazepam (ATIVAN) 0.5 MG Q6H PRN PRN IV Sodium Chloride (SODIUM CHLORIDE) 0 ASDIR PRN IV Sodium Chloride (SODIUM CHLORIDE) 0 ASDIR PRN IV (DC) Physical Exam General appearance: no acute distress Head/Eyes: atraumatic, normocephalic ENT: normal ear left, normal ear right, normal n ose Neck: full range of motion, no JVD Cardiovascular: regular rate rhythm Respiratory: aerating well, clear to auscultatio n, symmetric expansion, no distress Abdomen: non-tender, normal bowel sounds, soft, no distention Extremities: no clubbing, no cyanosis, no edema Neuro/HAND COLLATOR: altered mental status Results Findings/Data: Laboratory Tests 04/14 0625 Chemistry Sodium (134 - 147 mEq/L) 140 Potassium (3.4 - 5.0 mEq/L) 3.8 Chloride (100 - 108 mEq/L) 109 H Carbon Dioxide (21 - 33 mEq/l) 26 Anion Gap (0 - 20) 9 BUN (7 - 18 mg/dL) 13 Creatinine (0.6 - 1.3 mg/dL) 0.9 Glomerular Filtr Rate (70 - 80) 80.4 H Glucose (70 - 110 mg/dL) 131 H Calcium (8.0 - 10.5 mg/dL) 8.8 Laboratory Tests 04/14 0625 Hematology WBC (4.5 - 11.0 x10 3/uL) 9.0 RBC (4.00 - 5.60 x10 6/uL) 4.76 Hgb (12.5 - 16.9 g/dL) 15.2 Hct (37.5 - 50.7 %) 45.6 MCV (81.0 - 99.0 fL) 95.8 MCH (27.0 - 33.0 pg) 31.9 MCHC (33.0 - 37.0 g/dL) 33.3 RDW (11.5 - 14.5 %) 13.7 Plt Count (150 - 400 x10 3/uL) 150 MPV (7.0 - 9.0 fL) 11.6 H Neut % (Auto) (56.0 - 77.0 %) 62.0 Lymph % (Auto) (14.0 - 32.0 %) 25.9 Person % (Auto) (4.8 - 9.0 %) 10.3 H Eos % (Auto) (0.3 - 3.7 %) 1.0 Baso % (Auto) (0.0 - 2.0 %) 0.6 Neut # (Auto) (2.0 - 7.6 x10 3/uL) 5.55 Lymph # (Auto) (1.0 - 3.8 x10 3/uL) 2.32 Person # (Auto) (0.1 - 0.8 x10 3/uL) 0.92 H Eos # (Auto) (0.0 - 0.2 x10 3/uL) 0.09 Baso # (Auto) (0.0 - 0.2 x10 3/uL) 0.05 Abs Immat Gran (auto) (0.00 - 0.03 x10 3/uL) 0. 02 Add Manual Diff NO Immature Gran % (0.0 - 2.0 %) 0.2 Nucleated RBC % (0 - 0 %) 0.0 Nucleated RBCs # (Man) (0.0 - 0.1 x10 3/uL) 0.0 0 Radiology data: Recent Impressions: CAT SCAN - CT HEAD/BRAIN W/O CONT 04/13 1007 Report Impression - Status: SIGNED Entered: 04/13/2021 1020 IMPRESSION: No acute territorial infarct or intracranial hem orrhage detected. COMMENTS: If there is further clinical concern for intracr anial pathology, MRI of the brain may be performed for further as sessment. Impression By: Yanet Lovell M.D. MAGNETIC RESONANCE IMAGING - MRA NECK W/O CONT 0 04/13 1620 Report Impression - Status: SIGNED Entered: 04/13/2021 1746 IMPRESSION: There is no definite evidence of significant christian nosis or other abnormality of both common carotid arteries and the visible portions both internal and external carotid jessica karthikeyan are intact without significant stenosis or other abnormalit y. REFERENCES: NASCET CRITERIA. The degree of internal carotid artery stenosis is based on NASCET criteria. Normal is no stenosis. Mild is less than 50% stenosis. Moderate is 50-69% stenosis. Sever e is 70% to 99% stenosis. Total occlusion is no detectable paten t lumen. Impression By: [email or web address] Kelsi Cai MAGNETIC RESONANCE IMAGING - MRA HEAD W/O CONTRA ST 04/13 1620 Report Impression - Status: SIGNED Entered: 04/13/2021 1820 IMPRESSION: No stenosis or occlusion. Impression By: Kelsi Machuca MAGNETIC RESONANCE IMAGING - MRI BRAIN W/O CONT 04/13 1620 Report Impression - Status: SIGNED Entered: 04/13/2021 1752 IMPRESSION: No acute findings. Symmetrical expansion of the ventricles and extracerebral spaces, consistent with the patien t's age Moderately advanced chronic ischemic demyelinati on in the cerebral white matter is also consistent with the patient 's age. There is no evidence of any discrete cerebral le jorge and in particular, no abnormal signal is noted on the d iffusion-weighted sequence to indicate any recent or acute ischemi c injury. No other abnormalities of the brain are seen. Impression By: Kelsi Milligan ULTRASOUND - DOP ART SGL LEVEL HILARIO 04/13 1658 Report Impression - Status: SIGNED Entered: 04/13/2021 1716 IMPRESSION: No flow is seen in the left popliteal artery. Th ere is monophasic flow in the left posterior tibial artery and geovanny salis pedis artery. Impression By: [id number] - Alexis Douglas D.O. Diagnosis, Assessment Plan Problem List/A P: 1. Altered mental status 2. Episode of unresponsiveness 3. HTN (hypertension) 4. BPH (benign prostatic hyperplasia) 5. PVD (peripheral vascular disease) Free Text DxA P Notes Free text DxA P notes: 84 y/o with PVD/HTN/tobacco abuse who presents with AMS after elective angiogram of his legs. 1. Altered mental status - after angio o f his legs. r/o CVA. neuro to see. MRI brain/MRA negative. echo negative. on tele. reso lved 2. Episode of unresponsiveness - cards seen. ech o negative 3. HTN (hypertension) - cont home losartan 4. BPH (benign prostatic hyperplasia) - on floma x 5. PVD (peripheral vascular disease) - on xarelt o. arterial blood flow with blockage in the left popliteal artery. Angiogram sunday 6. h/o moderartly heavy etoh - 2 mixed d rinks a night. thiamine and PRN ativan on xarelto, will cover DVT prophylaxis card/neuro/vascular surgery seen Quality: Gen Med Crit Care Advanced Care Plan 65 or Older Discussed with: patient, surrogate decis. maker Discussion included: living will, power of attor mavis Electronically Signed by Ynes Baker MD 04/14/21 at 2140 RPT #:[id number] END OF REPORT 2021-04-14 09:38:00-00:00 [facility]L [facility] Cardiology Progress Note REPORT#:[id number] REPORT STATUS: Signed DATE:04/14/21 TIME: 937 PATIENT: KAYLYNN MISTRY UNIT #: [id number] ROOM/BED: [facility] [place]31-1 : 35 AGE: 85 SEX: M ATTEND: José Jimenez MD ADM AUTHOR: Katy Jack CNP * ALL edits or amendments must be made on the el ectronic/computer document * Subjective Chief Complaint: lucid and able to engage in conversation today hypertensive last night afib RVR with intermittent RVR Objective General VS/I O: 24 hour I O ending at 0700: 04/14 0700 04/13 1900 Intake Total Output Total 200 Balance -200 Number 1 Bowel Movements Number 2 Incontinent Voids Output, Urine 200 Vital Signs: Date Time Temp Pulse Resp B/P B/P Pulse O2 O2 F low FiO2 Mean Ox Delivery Rate 04/14 0658 37.0 63 18 144/84 104.0 95 Room air 04/13 2310 36.6 79 20 143/87 105.8 97 04/13 1913 36.5 116 20 127/74 91.5 96 04/13 1807 57 16 178/98 124.7 04/13 1743 36.7 76 18 183/106 131 99 04/13 1313 86 18 94 04/13 1158 37.0 36 18 133/75 94.5 97 Room air PATIENT WEIGHT: Weight (lb): Weight (oz): Weight (kg): 82.727 Medications: Active Meds + DC'd Last 24 Hrs Hydralazine HCl (APRESOLINE) 15 MG Q6H PRN PRN I V Sterile Water (WATER FOR INJECTION) 1.2 ML ASDIR PRN IM Ziprasidone (GEODON 20MG VIAL) 10 MG ONCE ONE IM (DC) Folic Acid (FOLIC ACID) 1 MG DAILY PO Losartan Potassium (COZAAR) 100 MG DAILY PO Multivitamins (TAB-A-FINESSE) 1 TAB DAILY PO Tamsulosin HCl (Flomax 0.4 mg) 0.4 MG DAILY PO Thiamine HCl (THIAMINE HCL) 100 MG DAILY PO Rivaroxaban (XARELTO 20MG) 20 MG C BK PO Acetaminophen (TYLENOL) 650 MG Q4H PRN PRN PO Ondansetron HCl (ZOFRAN) 4 MG Q4H PRN PRN IV Lorazepam (ATIVAN) 0.5 MG Q6H PRN PRN IV Sodium Chloride (SODIUM CHLORIDE) 0 ASDIR PRN IV Sodium Chloride (SODIUM CHLORIDE) 0 ASDIR PRN IV (DC) Physical Exam General appearance: alert, awake, no acute distr ess Neck: non-tender, no JVD Cardiovascular: CV assessment: irregularly irregular, tachycard ia Respiratory: no distress Abdomen: soft, non-tender Genitourinary: no medina Lower extremity: LE assessment: abnormal capillary refill, abnor mal temperature, abnormal pedal pulse, abnormal peripheral pulse Musculoskeletal: normal inspection Neuro/HAND COLLATOR: alert Psychiatry: normal affect, normal mood Results Findings/Data: Laboratory Tests 04/14 04/13 04/13 0625 0952 0952 Chemistry Sodium (134 - 147 mEq/L) 140 145 Potassium (3.4 - 5.0 mEq/L) 3.8 3.6 Chloride (100 - 108 mEq/L) 109 H 108 Carbon Dioxide (21 - 33 mEq/l) 26 29 Anion Gap (0 - 20) 9 11 BUN (7 - 18 mg/dL) 13 15 Creatinine (0.6 - 1.3 mg/dL) 0.9 0.9 Glomerular Filtr Rate (70 - 80) 80.4 H 80.4 H Glucose (70 - 110 mg/dL) 131 H 96 Calcium (8.0 - 10.5 mg/dL) 8.8 9.0 Vitamin B12 (193 - 986 pg/mL) 336 Folate (3.1 - 17.5 ng/mL) 11.0 TSH (0.42 - 5.47) 2.00 Free T4 (0.77 - 1.61 ng/dL) 1.0 Laboratory Tests 04/13 0852 Coagulation PTT (Shira) (25.0 - 39.5 Seconds) 32.2 Laboratory Tests 04/14 04/13 0625 0952 Hematology WBC (4.5 - 11.0 x10 3/uL) 9.0 9.8 RBC (4.00 - 5.60 x10 6/uL) 4.76 4.73 Hgb (12.5 - 16.9 g/dL) 15.2 15.1 Hct (37.5 - 50.7 %) 45.6 46.5 MCV (81.0 - 99.0 fL) 95.8 98.3 MCH (27.0 - 33.0 pg) 31.9 31.9 MCHC (33.0 - 37.0 g/dL) 33.3 32.5 L RDW (11.5 - 14.5 %) 13.7 14.0 Plt Count (150 - 400 x10 3/uL) 150 148 L MPV (7.0 - 9.0 fL) 11.6 H 11.1 H Neut % (Auto) (56.0 - 77.0 %) 62.0 Lymph % (Auto) (14.0 - 32.0 %) 25.9 Person % (Auto) (4.8 - 9.0 %) 10.3 H Eos % (Auto) (0.3 - 3.7 %) 1.0 Baso % (Auto) (0.0 - 2.0 %) 0.6 Neut # (Auto) (2.0 - 7.6 x10 3/uL) 5.55 Lymph # (Auto) (1.0 - 3.8 x10 3/uL) 2.32 Person # (Auto) (0.1 - 0.8 x10 3/uL) 0.92 H Eos # (Auto) (0.0 - 0.2 x10 3/uL) 0.09 Baso # (Auto) (0.0 - 0.2 x10 3/uL) 0.05 Abs Immat Gran (auto) (0.00 - 0.03 x10 3/uL) 0. 02 Add Manual Diff NO Immature Gran % (0.0 - 2.0 %) 0.2 Nucleated RBC % (0 - 0 %) 0.0 Nucleated RBCs # (Man) (0.0 - 0.1 x10 3/uL) 0.0 0 Radiology data: Recent Impressions: CAT SCAN - CT HEAD/BRAIN W/O CONT 04/13 1007 Report Impression - Status: SIGNED Entered: 04/13/2021 1020 IMPRESSION: No acute territorial infarct or intracranial hem orrhage detected. COMMENTS: If there is further clinical concern for intracr anial pathology, MRI of the brain may be performed for further as sessment. Impression By: [email or web address] - Hill Lovell M.D. MAGNETIC RESONANCE IMAGING - MRA NECK W/O CONT 0 04/13 1620 Report Impression - Status: SIGNED Entered: 04/13/2021 1746 IMPRESSION: There is no definite evidence of significant christian nosis or other abnormality of both common carotid arteries and the visible portions both internal and external carotid jessica karthikeyan are intact without significant stenosis or other abnormalit y. REFERENCES: NASCET CRITERIA. The degree of internal carotid artery stenosis is based on NASCET criteria. Normal is no stenosis. Mild is less than 50% stenosis. Moderate is 50-69% stenosis. Sever e is 70% to 99% stenosis. Total occlusion is no detectable paten t lumen. Impression By: [email or web address] Kelsi Cai MAGNETIC RESONANCE IMAGING - MRA HEAD W/O CONTRA ST 04/13 1620 Report Impression - Status: SIGNED Entered: 04/13/2021 1820 IMPRESSION: No stenosis or occlusion. Impression By: Kelsi Machuca MAGNETIC RESONANCE IMAGING - MRI BRAIN W/O CONT 04/13 1620 Report Impression - Status: SIGNED Entered: 04/13/2021 1752 IMPRESSION: No acute findings. Symmetrical expansion of the ventricles and extracerebral spaces, consistent with the patien t's age Moderately advanced chronic ischemic demyelinati on in the cerebral white matter is also consistent with the patient 's age. There is no evidence of any discrete cerebral le jorge and in particular, no abnormal signal is noted on the d iffusion-weighted sequence to indicate any recent or acute ischemi c injury. No other abnormalities of the brain are seen. Impression By: [email or web address] Kelsi Cai ULTRASOUND - DOP ART SGL LEVEL HILARIO 04/13 1658 Report Impression - Status: SIGNED Entered: 04/13/2021 1716 IMPRESSION: No flow is seen in the left popliteal artery. Th ere is monophasic flow in the left posterior tibial artery and geovanny salis pedis artery. Impression By: [id number] - Alexis Douglas D.O. Telemetry Interpretation: afib with intermittent RVR Echo results: Summary: 1. Left ventricle: The cavity size is normal. Wa ll thickness is normal. Systolic function is normal. The estimated ejec tion fraction is 50-55%. Wall motion is normal; there are no reg ional wall motion abnormalities. Left ventricular diastolic funct ion parameters are indeterminate. 2. Right ventricle: Estimated TAPSE is 1.3 cm. S ystolic function is reduced. 3. Atrial septum: Echo contrast study shows no s reid. 4. Aortic valve: The valve is trileaflet. The le aflets are mildly calcified. The findings are consistent with mil d to moderate stenosis. There is mild regurgitation. 5. Mitral valve: There is mild regurgitation. 6. Tricuspid valve: Estimated right ventricle sy stolic pressur is 34.58 mmHg. There is mild-moderate regurgitation. 7. Pericardium, extracardiac: A trivial pericard ial effusion is identified. Diagnosis, Assessment Plan Problem List/A P: 1. Altered mental status 2. Episode of unresponsiveness 3. PVD (peripheral vascular disease) Plan discussed with: patient, daughter, nurse Free Text DxA P Notes Free Text DxA P Notes: 84 YO male, known to Dr. Brendon smalls with PMHx of hypertension, atrial fibrillation, and PAD who presents to ED with syncopal episode and altered mental status. He had peripheral angiogram few days ago and found to have severe PAD not amenable to percutaneous intervention. We are called for further cardiac evaluation. Jennifer is a poor historian, hx provided by patient's son in-law but he himself is not familiar with patient's history. 1. Syncope of unclear etiology echocardiogram: LVEF 50-55%, normal bubble study , AV with mild to moderate stenosis MRA neck no flow-limiting stenosis MRI brain/CTH no acute stroke neuro following 2. Severe PVD/ischemic leg LE doppler : No flow is seen in the left poplite al artery. Vascular surgery consult - Dr. Curtis, planning for repeat peripheral angio 3. Chronic atrial fibrillation - intermittent RV R continue Xarelto add Metoprolol tartrate 25 mg BID. 4. Hypertension some high BP reading most likely r/t agitation restarted losartan 100 mg daily may use PRN IV hydralazine add metoprolol tartrate 25 mg BID for control of afib rate 5. Altered mental status/Behavioral disturbance - better, more lucid per PCP neuro workup ongoing avoid ativan add trazodone 50 mg for insomnia at 1334 Electronically Signed by Antonina Day MD on at 0827 RPT #:[id number] END OF REPORT 2021-04-13 20:21:00-00:00 [id number] [address] PATIENT NAME: KAYLYNN MISTRY ADMIT DATE: ACCOUNT NO: [id number] [place] [facility] [place]GE[place] 84 REPORT TYPE: eECHOCARDIOGRAM REPORT SEX: M ADMITTING PHYSICIAN:José Jimenez MD ATTENDING PHYSICIAN:José Jimenez MD *[address] [address] Transthoracic Echocardiogram Patient: Kaylynn Mistry Study Date: 04/13/2021 BP: 125 / 84 Location: [facility] URN: [id number] 0393 : 11/26/1936 Age: 84 Height: 69 in / 175.3 cm Gender: M Weight: 181 .6 lb / 82.6 kg BMI/BSA: 26.9 kg/m 2 / 2.02 m 2 *Ordering Physician: * José JimenezInterpreting Physician: * Bernabe Douglas MD *Panel Wirer: * Mamta Garcia Indications: CVA. Study data: Transthoracic echocardiogram. Proced ure: Transthoracic echocardiography was performed. Image quality wa s adequate. Intravenous contrast (agitated saline) was administered. PPT Reasearch plete 2D, complete spectral Doppler, and color Doppler. Location: [facility]. Patient status: Inpatient. Patient room number: 650. Channing dy status: Routine. Rhythm: Normal sinus rhythm. Findings Left ventricle: The cavity size is normal. Wall thickness is normal. Systolic function is normal. The estimated eject ion fraction is 50-55%. Wall motion is normal; there are no regional wal l motion abnormalities. Left ventricular diastolic function parameters a re indeterminate. Right ventricle: Estimated TAPSE is 1.3 cm. The cavity size is normal. PATIENT NAME: KAYLYNN MISTRY 0393 Systolic function is reduced. Left atrium: The atrium is normal in size. Right atrium: The atrium is normal in size. Atrial septum: Echo contrast study shows no shun t. Aorta: Aortic root: The aortic root is normal in size. Aortic valve: The valve is trileaflet. The leafl ets are mildly calcified. The findings are consistent with mild to moderate stenosis. There is mild regurgitation. Mitral valve: The valve is structurally normal. There is no evidence of stenosis. There is mild regurgitatio n. Tricuspid valve: Estimated right ventricle systo lic pressur is 34.58 mmHg. The valve is structurally normal. There is mild-moderate regurgitation. Pulmonic valve: The valve is structurally normal . There is no regurgitation. Pericardium: A trivial pericardial effusion is i dentified. Pulmonary arteries: The main pulmonary artery is normal-sized. Systemic veins: Inferior vena cava: The vessel is normal in size . Measurements Left ventricle Value Ref CARISA, LAX 5.5 cm 4.2 - 5.8 ESD, LAX 3.5 cm 2.5 - 4.0 ESD/bsa, LAX 1.8 cm/m 2 1.3 - 2.1 FS, LAX 36 % 25 - 43 ESD/bsa major 3.1 cm/m 2 --------- ax, A4C CARISA/bsa minor 3.1 cm/m 2 --------- ax, A4C CARISA major ax, 7.1 cm --------- A2C ESD major ax, 5.7 cm --------- A2C CARISA/bsa major 3.5 cm/m 2 --------- ax, A2C ESD/bsa major 2.8 cm/m 2 --------- ax, A2C PW, ED 1.0 cm 0.6 - 1.0 IVS/PW, ED 0.99 --------- EF 64 % 52 - 72 LVOT Value Ref Diam, S 2.10 cm --------- Area 3.5 cm 2 --------- Peak jonny, S 0.42 m/sec --------- Mean jonny, S 0.29 m/sec --------- VTI, S 5.4 cm --------- Peak grad, S 1 mm Hg --------- Mean grad, S 0 mm Hg --------- SV 19 ml --------- PATIENT NAME: KAYLYNN MISTRY 0393 Qs 2.23 L/min --------- Qs/bsa 1.1 L/(min-m 2) --------- SV/bsa 9 ml/m 2 --------- Ventricular septum Value Ref IVS, ED 1.0 cm 0.6 - 1.0 Right ventricle Value Ref TAPSE, MM 1.3 cm 1.7 - 3.1 RVOT Value Ref Peak v, S 0.68 m/sec --------- Peak grad, S 2 mm Hg --------- Left atrium Value Ref AP dim, ES 4.02 cm 3.00 - 4.00 Vol/bsa, ES, 21 ml/m 2 12 - 37 1-p A4C Vol, ES, 2-p 61 ml --------- Vol/bsa, ES, 30 ml/m 2 16 - 34 2-p Vol/bsa, ES, 22 ml/m 2 16 - 34 A/L AP dim, ES MM 4.0 cm 3.0 - 4.0 LA/Ao root 1.26 --------- ratio, MM Aortic valve Value Ref Leaflet sep, MM 1.27 cm --------- Peak v, S 2.29 m/sec --------- Mean v, S 1.65 m/sec --------- VTI, S 35.8 cm --------- Mean grad, S 12.1 mm Hg --------- Peak grad, S 20.9 mm Hg --------- LVOT/AV, VTI 0.15 --------- ratio JOHNNY, VTI 0.52 cm 2 --------- LVOT/AV, Vpeak 0.19 --------- ratio JOHNNY, Vmax 0.65 cm 2 --------- AR peak v 3.77 m/sec --------- AR decel 132 cm/s 2 --------- AR decel time 2848 ms --------- AR PHT 826 ms --------- AR peak grad 57 mm Hg --------- Pulmonic valve Value Ref NM v, ED 1.2 m/sec --------- NM grad, ED 6 mm Hg --------- Tricuspid valve Value Ref TR peak v 5.89 m/sec <=2.8 Peak RV-RA 139 mm Hg --------- PATIENT NAME: KAYLYNN MISTRY 0393 grad, S Aortic root Value Ref Root diam, ED 3.15 cm --------- MM Conclusions Summary: 1. Left ventricle: The cavity size is normal. Wa ll thickness is normal. Systolic function is normal. The estimated ejec tion fraction is 50-55%. Wall motion is normal; there are no reg ional wall motion abnormalities. Left ventricular diastolic funct ion parameters are indeterminate. 2. Right ventricle: Estimated TAPSE is 1.3 cm. S ystolic function is reduced. 3. Atrial septum: Echo contrast study shows no s reid. 4. Aortic valve: The valve is trileaflet. The le aflets are mildly calcified. The findings are consistent with mil d to moderate stenosis. There is mild regurgitation. 5. Mitral valve: There is mild regurgitation. 6. Tricuspid valve: Estimated right ventricle sy stolic pressur is 34.58 mmHg. There is mild-moderate regurgitation. 7. Pericardium, extracardiac: A trivial pericard ial effusion is identified. Prepared and electronically signed by Bernabe Douglas MD 04/13/2021 20:21 at 2020 PATIENT NAME: KAYLYNN MISTRY 0393 2021-04-13 13:13:00-00:00 [facility] REPORT#:[id number] REPORT STATUS: Signed DATE:04/13/21 TIME: 1313 PATIENT: KAYLYNN MISTRY UNIT #: [id number] ROOM/BED: [place] [address] : [birth year] AGE: 84 SEX: M ATTEND: José Jimenez MD ADM AUTHOR: Abad Oakley MD * ALL edits or amendments must be made on the [employer]/computer document * History of Present Illness Requesting Clinician: Dr. Davies, Dr. Jimenez Reason for consult: left leg pain with peripheral arterial disease Chief complaint: AMS HPI: 84-year-old male with past medical francine of BPH/PV D/HTN/tobacco abuse who presented with altered mental status intermitten tly since 10 pm sunday night after having an "unresponsive episode for 10 min utes". The patient on sunday had a angiogram and leg proc edure in which they found 100% blockage to the left leg, and was stable on disch arge home that same day and reports at approximately 10 PM patient became unresponsive, not answering questions, breathing hard, looked boggs, states patient began to wak e up when EMS arrived on scene and was alert andoriented x4 and refused transpo rt. Reports pt has been on xarleto for last month, held for angiography. Patient is zain rt and oriented x4 on exam, denies any chest pain, short ness of breath, headache, dizziness, fever, chills, sore throat, congestion, abdominal pain. Daughter reports patient has problems with incontinence and is becoming worse. Reports other past medical hx of HTN, chronic back pain. CT of the head showed no bleeding. and CTA of th e chest showed no PE. Per neurology asessment: Rap id Response was called this morning on patient while on the floor. RNObed reported that p ashely was given Ativan at 6:30am this morning for agitation, he found patient more con fused and not answering / responding, with pauses in h is breathing. Upon my assessment, patient was awake in bed, agitated, fussing, a sking, " who are you people," confused. He followed some commands, inconsistently and became a bit c ombative. History - Adult longitudinal Past medical history: Reports: Alcoholism/subst abuse, Hypertension, B PH, Chronic pain. Additional surgical history: hydrocele testical Tonsillectomy hernia Repair appendicitis cyst behind ear Additional family history: not relavent to current illness Alcohol use: Alcohol use Drug use: Denies recreational drugs Smoking status: Smoking status for patients 13 years old or old er: Heavy tobacco smoker (2 packs per day) Date last smoked: 04/12/21 Packs per day: 1.5 Years smoked: 72 Medications: Home Medications: Medication Dose/Rte/Freq Days Qty Entered Last Max Daily Dose Reviewed LOSARTAN (COZAAR) 100 MG PO DAILY 04/13/2104/02 Strength: 100 MG TAB 0516 0517 RIVAROXABAN (XARELTO) 20 MG PO DAILY 04/13/21 0 04/13/21 Strength: 20 MG TAB 0516 0517 TAMSULOSIN ER (FLOMAX) 0.4 MG PO DAILY 04/13/21 04/13/21 Strength: 0.4 MG CAP.SR.24H 0517 0517 Current Hospital Medications: Autonomic Drugs Sig/Tate Start time Last Medication Dose Route Stop Time Status Admin Tamsulosin HCl 0.4 MG DAILY 04/13 0900 AC (Flomax 0.4 mg) PO 05/13 0859 Blood Formation,Coagulation Sig/Tate Start time Last Medication Dose Route Stop Time Status Admin Rivaroxaban 20 MG C BK 04/13 0800 AC (XARELTO 20MG) PO 05/13 0759 Cardiovascular Drugs Sig/Tate Start time Last Medication Dose Route Stop Time Status Admin Losartan Potassium 100 MG DAILY 04/13 09 AC (COZAAR) PO 05/13 0859 Central Nervous System Agents Sig/Tate Start time Last Medication Dose Route Stop Time Status Admin Ziprasidone 10 MG ONCE ONE 04/13 1030 DC (GEODON 20MG VIAL) IM 04/13 1031 Acetaminophen 650 MG Q4H PRN PRN 04/13 0615 AC (TYLENOL) PO 05/13 0614 Lorazepam 0.5 MG Q6H PRN PRN 04/13 0445 AC (ATIVAN) IV 05/13 0444 0650 Diagnostic Agents Sig/Tate Start time Last Medication Dose Route Stop Time Status Admin Iopamidol 100 ML .STK-MED ONE 04/12 2037 DC (ISOVUE-300 100ML) IV 04/12 2038 2038 Electrolytic, Caloric, And Mirella Sig/Tate Start time Last Medication Dose Route Stop Time Status Admin Sodium Chloride 0 ASDIR PRN 04/13 0445 AC (SODIUM CHLORIDE) IV 05/13 0444 Sodium Chloride 0 ASDIR PRN 04/12 1745 AC (SODIUM CHLORIDE) IV 04/13 1644 Sodium Chloride 1,000 ML X1ED STA 04/12 1744 DC 04/12 (SODIUM CHLORIDE IV 04/12 1843 2003 0.9%) Gastrointestinal Drugs Sig/Tate Start time Last Medication Dose Route Stop Time Status Admin Ondansetron HCl 4 MG Q4H PRN PRN 04/13 0615 AC (ZOFRAN) IV 05/13 0614 Pharmaceutical Aids Sig/Tate Start time Last Medication Dose Route Stop Time Status Admin Sterile Water 1.2 ML ASDIR PRN 04/13 1030 AC (WATER FOR INJECTION) IM Vitamins Sig/Tate Start time Last Medication Dose Route Stop Time Status Admin Folic Acid 1 MG DAILY 04/13 0900 AC (FOLIC ACID) PO 05/13 0859 Multivitamins 1 TAB DAILY 04/13 09 AC (TAB-A-FINESSE) PO 05/13 0859 Thiamine HCl 100 MG DAILY 04/13 899 AC (THIAMINE HCL) PO 05/13 0859 Thiamine HCl 100 MG ONCE ONE 04/13 0630 DC 04/02 2 (THIAMINE HCL) IV 04/13 0649 0918 Sodium Chloride 50 ML (SODIUM CHLORIDE 0.9%) Allergies: Coded Allergies: No Known Allergies (04/12/21) Review of Systems All systems rev neg: except as marked Objective VS/I O: Last Documented: Result Date Time Pulse Ox 94 04/13 1313 Pulse 86 04/13 1313 Resp 18 04/13 1313 B/P 133/75 04/13 1158 B/P Mean 94.5 04/13 1158 O2 Delivery Room air 04/13 1158 Temp 98.6 04/13 1158 24 hour I O ending at 0700: 04/13 0700 04/12 1900 Intake Total 250 Output Total 150 Balance 100 Intake, Oral 250 Output, Urine 150 Patient 82.727 kg Weight Weight Stated/Reported Measurement Method PATIENT WEIGHT: Weight (lb): Weight (oz): Weight (kg): 82.727 General appearance: alert, awake Head/Eyes: atraumatic, normocephalic ENT: normal ear left, normal ear right, normal n ose Neck: full range of motion, no JVD Cardiovascular: regular rate rhythm Respiratory: aerating well, clear to auscultatio n, symmetric expansion, no distress Abdomen: non-tender, normal bowel sounds, soft, no distention Extremities: no clubbing, no cyanosis, no edema, dependent rubor, Tibial pulses not palpable Neuro/HAND COLLATOR: altered mental status Findings/Data: Laboratory Tests 04/13 04/13 04/13 04/12 04/12 0952 0952 0931 1942 1942 Chemistry Sodium (134 - 147 mEq/L) 145 144 Potassium (3.4 - 5.0 mEq/L) 3.6 3.7 Chloride (100 - 108 mEq/L) 108 108 Carbon Dioxide (21 - 33 mEq/l) 29 29 Anion Gap (0 - 20) 11 11 BUN (7 - 18 mg/dL) 15 17 Creatinine (0.6 - 1.3 mg/dL) 0.9 1.0 Glomerular Filtr Rate (70 - 80) 80.4 H 71.2 Glucose (70 - 110 mg/dL) 96 67 L POC Glucose (70 - 110 MG/DL) 87 Lactic Acid (0.4 - 1.9 mmol/L) 1.3 Calcium (8.0 - 10.5 mg/dL) 9.0 9.5 Total Bilirubin (0.0 - 1.0 mg/dL) 1.10 H Direct Bilirubin (0.0 - 0.30 MG/DL) 0.40 H Indirect Bilirubin (MG/DL) 0.70 AST (15 - 37 IUnit/L) 23 ALT (30 - 65 IUnit/L) 14 L Total Alk Phosphatase (20 - 125 IUnit/L) 89 Troponin I High Sens (0 - 54 ng/L) 40 Total Protein (6.4 - 8.2 g/dL) 7.1 Albumin (3.4 - 5.0 g/dL) 4.00 Vitamin B12 (193 - 986 pg/mL) 336 Folate (3.1 - 17.5 ng/mL) 11.0 TSH (0.42 - 5.47) 2.00 Free T4 (0.77 - 1.61 ng/dL) 1.0 Laboratory Tests 04/13 04/12 9552 855 Coagulation INR (0.8 - 1.2) 1.2 PTT (Shira) (25.0 - 39.5 Seconds) 32.2 31.5 PT Patient/Control Mix (9.3 - 12.9 SECONDS) 12. 9 Laboratory Tests 04/13 04/12 2678 270 Hematology WBC (4.5 - 11.0 x10 3/uL) 9.8 9.3 RBC (4.00 - 5.60 x10 6/uL) 4.73 5.00 Hgb (12.5 - 16.9 g/dL) 15.1 16.0 Hct (37.5 - 50.7 %) 46.5 48.2 MCV (81.0 - 99.0 fL) 98.3 96.4 MCH (27.0 - 33.0 pg) 31.9 32.0 MCHC (33.0 - 37.0 g/dL) 32.5 L 33.2 RDW (11.5 - 14.5 %) 14.0 14.1 Plt Count (150 - 400 x10 3/uL) 148 L 164 MPV (7.0 - 9.0 fL) 11.1 H 10.7 H Neut % (Auto) (56.0 - 77.0 %) 66.3 Lymph % (Auto) (14.0 - 32.0 %) 21.5 Person % (Auto) (4.8 - 9.0 %) 10.6 H Eos % (Auto) (0.3 - 3.7 %) 0.8 Baso % (Auto) (0.0 - 2.0 %) 0.5 Neut # (Auto) (2.0 - 7.6 x10 3/uL) 6.13 Lymph # (Auto) (1.0 - 3.8 x10 3/uL) 1.99 Person # (Auto) (0.1 - 0.8 x10 3/uL) 0.98 H Eos # (Auto) (0.0 - 0.2 x10 3/uL) 0.07 Baso # (Auto) (0.0 - 0.2 x10 3/uL) 0.05 Abs Immat Gran (auto) (0.00 - 0.03 x10 3/uL) 0. 03 Add Manual Diff NO Immature Gran % (0.0 - 2.0 %) 0.3 Nucleated RBC % (0 - 0 %) 0.0 Nucleated RBCs # (Man) (0.0 - 0.1 x10 3/uL) 0.0 0 Laboratory Tests 04/12 1957 Serology SARS-CoV-2 Ag (Rapid) (Negative) Negative Laboratory Tests 04/12 2100 Urines Urine Color (YEL/STRAW) YELLOW Urine Appearance (CLEAR) CLEAR Urine pH (5.0 - 7.0) 5.0 Ur Specific Murphy (1.005 - 1.030) 1.028 Urine Protein (NEGATIVE) NEGATIVE Urine Glucose (UA) (NEGATIVE) NEGATIVE Urine Ketones (NEGATIVE) NEGATIVE Urine Blood (NEGATIVE) NEGATIVE Urine Nitrite (NEGATIVE) NEGATIVE Urine Bilirubin (NEGATIVE) NEGATIVE Urine Urobilinogen (0.2 - 1.0 mg/dL) 0.2 Ur Leukocyte Esterase (NEGATIVE) NEGATIVE Urine RBC (0 - 3 RBC/HPF) 0-3 Urine WBC (0 - 3 WBC/HPF) 0-3 Ur Squamous Epith Cells (NONE SEEN /HPF) NONE S EEN Urine Bacteria (NONE SEEN /HPF) NONE SEEN Urine Mucus (NONE SEEN /LPF) TRACE Radiology data: Recent Impressions: RADIOLOGY - XR CHEST 1 V 04/12 1800 Report Impression - Status: SIGNED Entered: 04/12/2021 3607 IMPRESSION: No acute cardiopulmonary findings. Impression By: [email or web address] - Martina Mai CAT SCAN - CT HEAD/BRAIN W/O CONT 04/12 2038 Report Impression - Status: SIGNED Entered: 04/12/20212111 IMPRESSION: 1. There is a moderately heavy burden of hypoden se lesions in the bilateral frontal parietal white matter and righ t basal ganglia. These are probably secondary to chronic small ve ssel ischemic disease, however they are age indeterminate with out a comparison study and I cannot exclude an acute or subacute lacunar infarction. If there is clinical suspicion of acute ischemi a, further evaluation with MRI could be considered. 2. There is no mass effect, midline shift, acute intracranial hemorrhage, or large arterial vessel territory a cute cerebral cortical edema detected. 3. The evaluation is mildly limited due to patie nt motion. Impression By: [email or web address] - Jb Sorto D.O. CAT SCAN - CT ANGIO CHEST 04/12 2041 Report Impression - Status: SIGNED Entered: 04/12/20212115 IMPRESSION: 1. No CT evidence of acute pulmonary embolism. 2. Mild bronchial wall thickening is present, leon ggesting bronchitis, with several lower lobe endobronchia l filling defects likely representing inflammatory debris. There i s no CT evidence of acute pneumonia. SL:131 Impression By: JuancarlosM - Kaylynn Garay M.D. ULTRASOUND - DUP EXTRACRANIAL HILARIO 04/13 0924 Report Impression - Status: SIGNED Entered: 04/13/2021 0950 IMPRESSION: No carotid arterial stenosis. REFERENCES: SRU CRITERIA. The degree of internal carotid art marleny stenosis is based on criteria defined by the Society of Radi ologists in Ultrasound (SRU). Normal is no stenosis. Mild is less than 50% stenosis. Moderate is 50-69% stenosis. Severe is greater than 69% stenosis to near occlusion. Near occlusion is a markedly narrowed lumen. Total occlusion is no detectable patent l umen. Impression By: TkTDO Kelsi Sanchez CAT SCAN - CT HEAD/BRAIN W/O CONT 04/13 1007 Report Impression - Status: SIGNED Entered: 04/13/2021 1020 IMPRESSION: No acute territorial infarct or intracranial hem orrhage detected. COMMENTS: If there is further clinical concern for intracr anial pathology, MRI of the brain may be performed for further as sessment. Impression By: [email or web address] Lovell M.D. PROCEDURE INFORMATION: Exam: US Duplex Bilateral Extracranial Arteries , Carotid Arteries Exam date and time: 04/13/2021 8:52 AM Age: 84 years old Clinical indication: Altered mental status/mayra ry loss; Confusion or disorientation; Additional info: R/O carotid stenosis TECHNIQUE: Imaging protocol: Real-time Duplex ultrasound s can of the bilateral carotid and vertebral arteries combining boggs s jos edaniel, color Doppler and spectral waveform analysis. Bilateral exam . Exam focused on the carotid arteries. COMPARISON: CT HEAD/BRAIN W/O CONT 04/12/2021 8:43 PM FINDINGS: Right common carotid artery: Plaque formation. No occlusion or stenosis. Waveforms are normal. Right internal carotid artery: Plaque formation . No occlusion or stenosis. Waveforms are normal. Right ICA/CCA ratio: Within normal limits. Right external carotid artery: No stenosis in t he origin. Right vertebral artery: Not seen secondary to p atient positioning. Left common carotid artery: Plaque formation. N o occlusion or stenosis. Waveforms are normal. Left internal carotid artery: Plaque formation. No occlusion or stenosis. Waveforms are normal. Left ICA/CCA ratio: Within normal limits. Left external carotid artery: No stenosis in th e origin. Left vertebral artery: Unremarkable. Antegrade flow. IMPRESSION: No carotid arterial stenosis. REFERENCES: SRU CRITERIA. The degree of internal carotid ar nicanor stenosis is based on criteria defined by the Society of Ra diologists in Ultrasound (SRU). Normal is no stenosis. Mild i s less than 50% stenosis. Moderate is 50-69% stenosis. Severe i s greater than 69% stenosis to near occlusion. Near occlusion is a markedly narrowed lumen. Total occlusion is no detectable patent lumen. CT ANGIO CHEST [id number] PROCEDURE INFORMATION: Exam: CTA Chest With Contrast Exam date and time: 04/12/2021 8:43 PM Age: 84 years old Clinical indication: Other: Syncope; Additiona l info: Unresponsive episode y S/P angiogram TECHNIQUE: Imaging protocol: Computed tomographic angiogra phy of the chest with contrast. 3D rendering (Not supervised by radiologist): M IP and/or 3D reconstructed images were created by the techno logist. Radiation optimization: All CT scans at this [facility] use at least one of these dose optimization techniques : automated exposure control; mA and/or kV adjustment per patient si ze (includes targeted exams where dose is matched to clinica l indication); or iterative reconstruction. Contrast material: [id number]; Contrast volume: 100 ml; Contrast route: INTRAVENOUS (IV) COMPARISON: CR XR CHEST 1V 04/12/2021 6:00 PM FINDINGS: PULMONARY ARTERIES: The pulmonary arteries appe ar to enhance normally. No pulmonary artery filling defects a re detected to suggest acute pulmonary embolism. MEDIASTINUM: Fusiform ectasia of the of the tho racic aorta is present with the ascending aorta having a diame ter of 3.7 cm. There is no evidence of aortic dissection. Athe rosclerotic calcification is present in the aorta, proximal great vessels and coronary arteries. There is no evidence of a me diastinal mass or enlarged mediastinal lymph nodes. The heart is enlarged. No significant pericardial fluid collections are n oted. PLEURAL SPACES: No acute pleural space abnormal ities are detected. LUNGS: The lungs demonstrate evidence of emphys martín. Mild bronchial wall thickening is present, being mos t apparent in the lower lobes, with several endobronchial filling defects likely representing inflammatory debris. No consolidat ion concerning for pneumonia is identified. No pulmonary masses ar e detected. UPPER ABDOMEN: The included upper abdominal orga ns are unremarkable. ADDITIONAL FINDINGS: None. IMPRESSION: 1. No CT evidence of acute pulmonary embolism. 2. Mild bronchial wall thickening is present, s uggesting bronchitis, with several lower lobe endobronchi al filling defects likely representing inflammatory debris. There is no CT evidence of acute pneumonia. SL:131 Diagnosis, Assessment Plan Problem List/A P: 1. PVD (peripheral vascular disease) 2. Altered mental status 3. BPH (benign prostatic hyperplasia) 4. HTN (hypertension) Free Text A P: Patient with altered mental status of uncertain etiology. At risk for embolic CVA with history of afib and off xarelto for a w tolowa dee-ni'. Agree with MRI head per neurology. Can complete left leg revascularization when patient more stable and family ok with proceeding. Can continue xarelto fpr procedure. Possible angiogram Sunday of no contraindication throught tommorow. Thank you for the consult. at [address] [facility] #:[id number] END OF REPORT 2021-04-13 13:12:00-00:00 [facility] Cardiology Consultation REPORT#:[id number] REPORT STATUS: Signed DATE:04/13/21 TIME: 1312 PATIENT: KAYLYNN MISTRY UNIT #: [id number] ROOM/BED: [place] [address] : 35 AGE: 85 SEX: M ATTEND: José Jimenez MD ADM AUTHOR: Katy Jack RESEARCH GEOLOGIST * ALL edits or amendments must be made on the [employer]/computer document * History of Present Illness HPI Requesting Clinician: Dr. Jimenez Reason for consult: Syncope Chief complaint: Syncope PCP: PCP: Mamadou Leigh MD HPI: 84 YO male, known to Dr. Brendon smalls with PMHx of hypertension, atrial fibrillation, and PAD who presents to ED with syncopal episode and altered mental status. He had peripheral angiogram few days ago and found to have severe PAD not amenable to percutaneous intervention. We are called for further cardiac evaluation. Jennifer is a poor historian, hx provided by patient's son in-law but he himself is not familiar with patient's history. History - Adult longitudinal Past medical history: Reports: Alcoholism/subst ab use, Atrial fibrillation, Hypertension, BPH, Chronic pain, Periph arterial disease. Additional surgical history: hydrocele testical Tonsillectomy hernia Repair appendicitis cyst behind ear Additional family history: not relavent to current illness Alcohol use: Alcohol use Drug use: Denies recreational drugs Smoking status: Smoking status for patients 13 years old or old er: Heavy tobacco smoker (2 packs per day) Date last smoked: 04/12/21 Packs per day: 1.5 Years smoked: 72 Allergies: Coded Allergies: No Known Allergies (04/12/21) Objective General VS/I O: Vital Signs: Date Time Temp Pulse Resp B/P B/P Pulse O2 O2 F low FiO2 Mean Ox Delivery Rate 04/13 1313 86 18 94 04/13 1158 37.0 36 18 133/75 94.5 97 Room air 04/13 0935 36.4 112 20 162/97 118.5 93 04/13 0706 36.8 79 18 125/84 97.3 96 Room air 04/13 0507 37.0 78 16 167/95 119.0 95 Room air 04/13 0400 36.7 81 16 127/85 99 99 Room air 04/13 0000 36.7 83 16 131/81 97 97 Room air 04/12 2100 36.8 93 16 129/83 98 99 Room air 04/12 1728 36.8 96 16 126/85 98 98 Room air 24 hour I O ending at 0700: 04/13 0700 04/12 1900 Intake Total 250 Output Total 150 Balance 100 Intake, Oral 250 Output, Urine 150 Patient 82.727 kg Weight Weight Stated/Reported Measurement Method PATIENT WEIGHT: Weight (lb): Weight (oz): Weight (kg): 82.727 Medications: Active Meds + DC'd Last 24 Hrs Sterile Water (WATER FOR INJECTION) 1.2 ML ASDIR PRN IM Ziprasidone (GEODON 20MG VIAL) 10 MG ONCE ONE I M (DC) Folic Acid (FOLIC ACID) 1 MG DAILY PO Losartan Potassium (COZAAR) 100 MG DAILY PO Multivitamins (TAB-A-FINESSE) 1 TAB DAILY PO Tamsulosin HCl (Flomax 0.4 mg) 0.4 MG DAILY PO Thiamine HCl (THIAMINE HCL) 100 MG DAILY PO Rivaroxaban (XARELTO 20MG) 20 MG C BK PO Thiamine HCl (THIAMINE HCL) 100 MG ONCE ONE IV (DC) Sodium Chloride (SODIUM CHLORIDE 0.9%) 50 ML Acetaminophen (TYLENOL) 650 MG Q4H PRN PRN PO Ondansetron HCl (ZOFRAN) 4 MG Q4H PRN PRN IV Lorazepam (ATIVAN) 0.5 MG Q6H PRN PRN IV Sodium Chloride (SODIUM CHLORIDE) 0 ASDIR PRN IV Iopamidol (ISOVUE-300 100ML) 100 ML .STK-MED ONE IV (DC) Sodium Chloride (SODIUM CHLORIDE) 0 ASDIR PRN IV Sodium Chloride (SODIUM CHLORIDE 0.9%) 1,000 ML X1ED STA IV (DC) Physical Exam General appearance: chronically ill appearing, a wake, no acute distress Neck: non-tender, no JVD Cardiovascular: CV assessment: regular rate and rhythm Murmur assessment: heart murmur Respiratory: decreased breath sounds, no distres s Abdomen: soft, non-tender, normal bowel sounds, no distention Genitourinary: no medina Lower extremity: LE assessment: abnormal capillary refill, abnor mal temperature, edema, abnormal pedal pulse, abnormal peripheral pulse Musculoskeletal: normal inspection Neuro/HAND COLLATOR: altered mental status, disoriented Skin: poor skin turgor, dry Psychiatry: unable to evaluate Results Findings/Data: Laboratory Tests 04/13 04/13 04/13 04/12 04/12 0952 0952 0931 1942 1942 Chemistry Sodium (134 - 147 mEq/L) 145 144 Potassium (3.4 - 5.0 mEq/L) 3.6 3.7 Chloride (100 - 108 mEq/L) 108 108 Carbon Dioxide (21 - 33 mEq/l) 29 29 Anion Gap (0 - 20) 11 11 BUN (7 - 18 mg/dL) 15 17 Creatinine (0.6 - 1.3 mg/dL) 0.9 1.0 Glomerular Filtr Rate (70 - 80) 80.4 H 71.2 Glucose (70 - 110 mg/dL) 96 67 L POC Glucose (70 - 110 MG/DL) 87 Lactic Acid (0.4 - 1.9 mmol/L) 1.3 Calcium (8.0 - 10.5 mg/dL) 9.0 9.5 Total Bilirubin (0.0 - 1.0 mg/dL) 1.10 H Direct Bilirubin (0.0 - 0.30 MG/DL) 0.40 H Indirect Bilirubin (MG/DL) 0.70 AST (15 - 37 IUnit/L) 23 ALT (30 - 65 IUnit/L) 14 L Total Alk Phosphatase (20 - 125 IUnit/L) 89 Troponin I High Sens (0 - 54 ng/L) 40 Total Protein (6.4 - 8.2 g/dL) 7.1 Albumin (3.4 - 5.0 g/dL) 4.00 Vitamin B12 (193 - 986 pg/mL) 336 Folate (3.1 - 17.5 ng/mL) 11.0 TSH (0.42 - 5.47) 2.00 Free T4 (0.77 - 1.61 ng/dL) 1.0 Laboratory Tests 04/1352 1942 Coagulation INR (0.8 - 1.2) 1.2 PTT (Shira) (25.0 - 39.5 Seconds) 32.2 31.5 PT Patient/Control Mix (9.3 - 12.9 SECONDS) 12. 9 Laboratory Tests 04/13 04/12 0905 1943 Hematology WBC (4.5 - 11.0 x10 3/uL) 9.8 9.3 RBC (4.00 - 5.60 x10 6/uL) 4.73 5.00 Hgb (12.5 - 16.9 g/dL) 15.1 16.0 Hct (37.5 - 50.7 %) 46.5 48.2 MCV (81.0 - 99.0 fL) 98.3 96.4 MCH (27.0 - 33.0 pg) 31.9 32.0 MCHC (33.0 - 37.0 g/dL) 32.5 L 33.2 RDW (11.5 - 14.5 %) 14.0 14.1 Plt Count (150 - 400 x10 3/uL) 148 L 164 MPV (7.0 - 9.0 fL) 11.1 H 10.7 H Neut % (Auto) (56.0 - 77.0 %) 66.3 Lymph % (Auto) (14.0 - 32.0 %) 21.5 Person % (Auto) (4.8 - 9.0 %) 10.6 H Eos % (Auto) (0.3 - 3.7 %) 0.8 Baso % (Auto) (0.0 - 2.0 %) 0.5 Neut # (Auto) (2.0 - 7.6 x10 3/uL) 6.13 Lymph # (Auto) (1.0 - 3.8 x10 3/uL) 1.99 Person # (Auto) (0.1 - 0.8 x10 3/uL) 0.98 H Eos # (Auto) (0.0 - 0.2 x10 3/uL) 0.07 Baso # (Auto) (0.0 - 0.2 x10 3/uL) 0.05 Abs Immat Gran (auto) (0.00 - 0.03 x10 3/uL) 0. 03 Add Manual Diff NO Immature Gran % (0.0 - 2.0 %) 0.3 Nucleated RBC % (0 - 0 %) 0.0 Nucleated RBCs # (Man) (0.0 - 0.1 x10 3/uL) 0.0 0 Laboratory Tests 04/12 1957 Serology SARS-CoV-2 Ag (Rapid) (Negative) Negative Laboratory Tests 04/12 2100 Urines Urine Color (YEL/STRAW) YELLOW Urine Appearance (CLEAR) CLEAR Urine pH (5.0 - 7.0) 5.0 Ur Specific Murphy (1.005 - 1.030) 1.028 Urine Protein (NEGATIVE) NEGATIVE Urine Glucose (UA) (NEGATIVE) NEGATIVE Urine Ketones (NEGATIVE) NEGATIVE Urine Blood (NEGATIVE) NEGATIVE Urine Nitrite (NEGATIVE) NEGATIVE Urine Bilirubin (NEGATIVE) NEGATIVE Urine Urobilinogen (0.2 - 1.0 mg/dL) 0.2 Ur Leukocyte Esterase (NEGATIVE) NEGATIVE Urine RBC (0 - 3 RBC/HPF) 0-3 Urine WBC (0 - 3 WBC/HPF) 0-3 Ur Squamous Epith Cells (NONE SEEN /HPF) NONE S EEN Urine Bacteria (NONE SEEN /HPF) NONE SEEN Urine Mucus (NONE SEEN /LPF) TRACE Radiology Data: Recent Impressions: RADIOLOGY - XR CHEST 1 V 04/12 1800 Report Impression - Status: SIGNED Entered: 04/12/20211816 IMPRESSION: No acute cardiopulmonary findings. Impression By: [email or web address] - Martina Mai CAT SCAN - CT HEAD/BRAIN W/O CONT 04/12 2038 Report Impression - Status: SIGNED Entered: 04/12/20212111 IMPRESSION: 1. There is a moderately heavy burden of hypoden se lesions in the bilateral frontal parietal white matter and righ t basal ganglia. These are probably secondary to chronic small ve ssel ischemic disease, however they are age indeterminate with out a comparison study and I cannot exclude an acute or subacute lacunar infarction. If there is clinical suspicion of acute ischemi a, further evaluation with MRI could be considered. 2. There is no mass effect, midline shift, acute intracranial hemorrhage, or large arterial vessel territory a cute cerebral cortical edema detected. 3. The evaluation is mildly limited due to patie nt motion. Impression By: [email or web address] - Jb Sorto D.O. CAT SCAN - CT ANGIO CHEST 04/12 2041 Report Impression - Status: SIGNED Entered: 04/12/2021 2116 IMPRESSION: 1. No CT evidence of acute pulmonary embolism. 2. Mild bronchial wall thickening is present, leon ggesting bronchitis, with several lower lobe endobronchia l filling defects likely representing inflammatory debris. There i s no CT evidence of acute pneumonia. SL:131 Impression By: Alexa - Kaylynn Garay M.D. ULTRASOUND - DUP EXTRACRANIAL HILARIO 04/13 0924 Report Impression - Status: SIGNED Entered: 04/13/2021 0950 IMPRESSION: No carotid arterial stenosis. REFERENCES: SRU CRITERIA. The degree of internal carotid art marleny stenosis is based on criteria defined by the Society of Radi ologists in Ultrasound (SRU). Normal is no stenosis. Mild is less than 50% stenosis. Moderate is 50-69% stenosis. Severe is greater than 69% stenosis to near occlusion. Near occlusion is a markedly narrowed lumen. Total occlusion is no detectable patent l umen. Impression By: Zulma - Kelsi Alcala CAT SCAN - CT HEAD/BRAIN W/O CONT 04/13 1007 Report Impression - Status: SIGNED Entered: 04/13/2021 1020 IMPRESSION: No acute territorial infarct or intracranial hem orrhage detected. COMMENTS: If there is further clinical concern for intracr anial pathology, MRI of the brain may be performed for further as sessment. Impression By: [email or web address] - Hill Lovell M.D. Results: labs reviewed, vital signs stable EKG Interpretation: atrial fibrillation Diagnosis, Assessment Plan Problem List/A P: 1. Altered mental status 2. Episode of unresponsiveness 3. PVD (peripheral vascular disease) Free Text DxA P Notes Free Text DxA P Notes: 84 YO male, known to Dr. Brendon smalls with PMHx of hypertension, atrial fibrillation, and PAD who presents to ED with syncopal episode and altered mental status. He had peripheral angiogram few days ago and found to have severe PAD not amenable to percutaneous intervention. We are called for further cardiac evaluation. Jennifer is a poor historian, hx provided by patient's son in-law but he himself is not familiar with patient's history. 1. Syncope of unclear etiology neuro workup ongoing echocardiogram CTH no acute stroke MRI brain pending 2. Severe PVD/ischemic leg Vascular surgery consult - Dr. Curtis 3. Chronic atrial fibrillation - rate control continue Xarelto 4. Hypertension - normotensive continue losartan 5. Altered mental status/Behavioral disturbance per PCP neuro workup ongoing Appreciate the referral. at 1329 Electronically Signed by Antonina Day MD on at 0827 RPT #:[id number] END OF REPORT 2021-04-13 13:02:00-00:00 [facility] Clinical Note REPORT#:[id number] REPORT STATUS: Signed DATE:04/13/21 TIME: 1302 PATIENT: KAYLYNN MISTRY UNIT #: [id number] ROOM/BED: [place] [address] : [birth year] AGE: 84 SEX: M ATTEND: José Jimenez MD ADM AUTHOR: Ynes Baker MD * ALL edits or amendments must be made on the [employer] document * Clinical Note Note: patient was seen earlier by Dr. Jimenez. pat ient had rapid response for agitation. curently calm. got repeat Head CT which was nega tive. awaiting MRI of brain. came in for s/p elective ang iogram of legs and had confusion/syncope. on xarelto Electronically Signed by Ynes Baker MD o n 04/13/21 at 1304 RPT #:[id number] END OF REPORT 2021-04-13 10:45:00-00:00 [facility] ([facility]) Neurology Consultation Note REPORT#:[id number] REPORT STATUS: Signed DATE:04/13/21 TIME: 1045 PATIENT: KAYLYNN MISTRY UNIT #: [id number] ROOM/BED: [place] [address] : [birth year] AGE: 85 SEX: M ATTEND: José Jimenez MD ADM AUTHOR: Priti Cooper * ALL edits or amendments must be made on the [employer]/computer document * Priti Cooper 04/13/21 1045: History of Present Illness HPI Reason for consult: AMS PCP: PCP: Mamadou Leigh MD HPI: Mr. Mistry is a 84 year old male with history of Hypertension, PVD, Afib ( Xarelto), BPH and chronic lo w back pain who presented to [facility] Emergency Department for AMS and unres ponsiveness x 10 minutes. Information gathered from Daughter at bedside and medical records. Leela cat reports patient was just discharged home after having a angiogram of LLE for PVD. Once he got home she notice patient was confused attempting to turn t he TV w/a cigarette, he then became unresponsive. She was instructed by MD to bring patient to the Emergency Room. According to daughter, patient was on xarelto until 04/08/21, which he had to stop due to the procedure . She also reports patient has had cognitive decline for some time now with short term memory loss. N o formal cognitive evaluation pursued. He lives alone and is fairly independen t prior to procedure. Rapid Response was called this morning on patien t while on the floor. RNObed reported that patient was given Ativan at 6:30am this morning for agitation, he found patient more confused and no t answering /responding, with pauses in his breathing. Upo n my assessment, patient was awake in bed, agitated , fussing, asking, " who are you people, " confused. He followed some commands, inconsistently and became a bit combative, grabb ing my hand and jerking away from RN at bedside. O2 sat. was 87%, Oxy gen NC at 2 L was placed. B/P 160/109, BG 87. RN collected ABG's, Labs and Stat CT Scan of head was ordered. Notified Dr. Becerra and Hospital Medicine Team was also notif ied per Rapid Response Lead. History - Adult longitudinal Past medical history: Reports: Alcoholism/subst abuse, Hypertension, B PH, Chronic pain. Additional surgical history: hydrocele testical Tonsillectomy hernia Repair appendicitis cyst behind ear Additional family history: not relavent to current illness Alcohol use: Alcohol use Drug use: Denies recreational drugs Smoking status: Smoking status for patients 13 years old or ol re: Heavy tobacco smoker (2 packs per day) Date last smoked: 04/12/21 Packs per day: 1.5 Years smoked: 72 Allergies: Coded Allergies: No Known Allergies (04/12/21) Review of Systems Unable to obtain due to: Due to confusion and agitation Objective General VS: Last Documented: Result Date Time Pulse Ox 93 04/13 934 B/P 162/97 04/13 934 B/P Mean 118.5 04/13 934 Temp 97.5 04/13 934 Pulse 112 04/13 934 Resp 20 04/13 934 O2 Delivery Room air 04/13 705 PATIENT WEIGHT: Weight (lb): Weight (oz): Weight (kg): 82.727 Medications Current Home Medications LOSARTAN (COZAAR) 100 MG PO DAILY RIVAROXABAN (XARELTO) 20 MG PO DAILY TAMSULOSIN ER (FLOMAX) 0.4 MG PO DAILY Active Meds + DC'd Last 24 Hrs Sterile Water (WATER FOR INJECTION) 1.2 ML ASDIR PRN IM Ziprasidone (GEODON 20MG VIAL) 10 MG ONCE ONE IM (DC) Folic Acid (FOLIC ACID) 1 MG DAILY PO Losartan Potassium (COZAAR) 100 MG DAILY PO Multivitamins (TAB-A-FINESSE) 1 TAB DAILY PO Tamsulosin HCl (Flomax 0.4 mg) 0.4 MG DAILY PO Thiamine HCl (THIAMINE HCL) 100 MG DAILY PO Rivaroxaban (XARELTO 20MG) 20 MG C BK PO Thiamine HCl (THIAMINE HCL) 100 MG ONCE ONE IV ( DC) Sodium Chloride (SODIUM CHLORIDE 0.9%) 50 ML Acetaminophen (TYLENOL) 650 MG Q4H PRN PRN PO Ondansetron HCl (ZOFRAN) 4 MG Q4H PRN PRN IV Lorazepam (ATIVAN) 0.5 MG Q6H PRN PRN IV Sodium Chloride (SODIUM CHLORIDE) 0 ASDIR PRN IV Iopamidol (ISOVUE-300 100ML) 100 ML .STK-MED ONE IV (DC) Sodium Chloride (SODIUM CHLORIDE) 0 ASDIR PRN IV Sodium Chloride (SODIUM CHLORIDE 0.9%) 1,000 ML X1ED STA IV (DC) Physical Exam Neuro comment: GEN: Confused, agitated, uncooperative RESP: Mild SOB, Oxygen 87% on Room air, Placed o n Oxygen 2L NC Mental Status: Confused, combative, uncooperativ e, responds to name only Neurro: Limited Cranial Nerves: EOMI, Mild increase in nasolabial fold on right, asymmetric smile Language/Speech: fluent, Motor: BUE: AG, moves legs in bed, but not to verbal co mmand Results Findings/Data: Laboratory Tests 04/1352 78 1942 1942 Chemistry Sodium (134 - 147 mEq/L) 145 144 Potassium (3.4 - 5.0 mEq/L) 3.6 3.7 Chloride (100 - 108 mEq/L) 108 108 Carbon Dioxide (21 - 33 mEq/l) 29 29 Anion Gap (0 - 20) 11 11 BUN (7 - 18 mg/dL) 15 17 Creatinine (0.6 - 1.3 mg/dL) 0.9 1.0 Glomerular Filtr Rate (70 - 80) 80.4 H 71.2 Glucose (70 - 110 mg/dL) 96 67 L POC Glucose (70 - 110 MG/DL) 87 Lactic Acid (0.4 - 1.9 mmol/L) 1.3 Calcium (8.0 - 10.5 mg/dL) 9.0 9.5 Total Bilirubin (0.0 - 1.0 mg/dL) 1.10 H Direct Bilirubin (0.0 - 0.30 MG/DL) 0.40 H Indirect Bilirubin (MG/DL) 0.70 AST (15 - 37 IUnit/L) 23 ALT (30 - 65 IUnit/L) 14 L Total Alk Phosphatase (20 - 125 IUnit/L) 89 Troponin I High Sens (0 - 54 ng/L) 40 Total Protein (6.4 - 8.2 g/dL) 7.1 Albumin (3.4 - 5.0 g/dL) 4.00 Laboratory Tests 04/13 Coagulation INR (0.8 - 1.2) 1.2 PTT ([place]) (25.0 - 39.5 Seconds) 32.2 31.5 PT Patient/Control Mix (9.3 - 12.9 SECONDS) 12. 9 Laboratory Tests 04/13 Hematology WBC (4.5 - 11.0 x10 3/uL) 9.8 9.3 RBC (4.00 - 5.60 x10 6/uL) 4.73 5.00 Hgb (12.5 - 16.9 g/dL) 15.1 16.0 Hct (37.5 - 50.7 %) 46.5 48.2 MCV (81.0 - 99.0 fL) 98.3 96.4 MCH (27.0 - 33.0 pg) 31.9 32.0 MCHC (33.0 - 37.0 g/dL) 32.5 L 33.2 RDW (11.5 - 14.5 %) 14.0 14.1 Plt Count (150 - 400 x10 3/uL) 148 L 164 MPV (7.0 - 9.0 fL) 11.1 H 10.7 H Neut % (Auto) (56.0 - 77.0 %) 66.3 Lymph % (Auto) (14.0 - 32.0 %) 21.5 Person % (Auto) (4.8 - 9.0 %) 10.6 H Eos % (Auto) (0.3 - 3.7 %) 0.8 Baso % (Auto) (0.0 - 2.0 %) 0.5 Neut # (Auto) (2.0 - 7.6 x10 3/uL) 6.13 Lymph # (Auto) (1.0 - 3.8 x10 3/uL) 1.99 Person # (Auto) (0.1 - 0.8 x10 3/uL) 0.98 H Eos # (Auto) (0.0 - 0.2 x10 3/uL) 0.07 Baso # (Auto) (0.0 - 0.2 x10 3/uL) 0.05 Abs Immat Gran (auto) (0.00 - 0.03 x10 3/uL) 0. 03 Add Manual Diff NO Immature Gran % (0.0 - 2.0 %) 0.3 Nucleated RBC % (0 - 0 %) 0.0 Nucleated RBCs # (Man) (0.0 - 0.1 x10 3/uL) 0. 00 Laboratory Tests 04/12 1957 Serology SARS-CoV-2 Ag (Rapid) (Negative) Negative Laboratory Tests 04/12 2099 Urines Urine Color (YEL/STRAW) YELLOW Urine Appearance (CLEAR) CLEAR Urine pH (5.0 - 7.0) 5.0 Ur Specific Murphy (1.005 - 1.030) 1.028 Urine Protein (NEGATIVE) NEGATIVE Urine Glucose (UA) (NEGATIVE) NEGATIVE Urine Ketones (NEGATIVE) NEGATIVE Urine Blood (NEGATIVE) NEGATIVE Urine Nitrite (NEGATIVE) NEGATIVE Urine Bilirubin (NEGATIVE) NEGATIVE Urine Urobilinogen (0.2 - 1.0 mg/dL) 0.2 Ur Leukocyte Esterase (NEGATIVE) NEGATIVE Urine RBC (0 - 3 RBC/HPF) 0-3 Urine WBC (0 - 3 WBC/HPF) 0-3 Ur Squamous Epith Cells (NONE SEEN /HPF) NONE S EEN Urine Bacteria (NONE SEEN /HPF) NONE SEEN Urine Mucus (NONE SEEN /LPF) TRACE Radiology Data: Recent Impressions: RADIOLOGY - XR CHEST 1 V 04/12 1800 Report Impression - Status: SIGNED Entered: 04/12/20211816 IMPRESSION: No acute cardiopulmonary findings. Impression By: [email or web address] - Martina Mai CAT SCAN - CT HEAD/BRAIN W/O CONT 04/12 2038 Report Impression - Status: SIGNED Entered: 04/12/20212111 IMPRESSION: 1. There is a moderately heavy burden of hypoden se lesions in the bilateral frontal parietal white matter and righ t basal ganglia. These are probably secondary to chronic small ve ssel ischemic disease, however they are age indeterminate with out a comparison study and I cannot exclude an acute or subacute lacunar infarction. If there is clinical suspicion of acute ischemi a, further evaluation with MRI could be considered. 2. There is no mass effect, midline shift, acute intracranial hemorrhage, or large arterial vessel territory a cute cerebral cortical edema detected. 3. The evaluation is mildly limited due to patie nt motion. Impression By: [email or web address] - Jb Sorto D.O. CAT SCAN - CT ANGIO CHEST 04/12 2041 Report Impression - Status: SIGNED Entered: 04/12/20212115 IMPRESSION: 1. No CT evidence of acute pulmonary embolism. 2. Mild bronchial wall thickening is present, leon ggesting bronchitis, with several lower lobe endobronchia l filling defects likely representing inflammatory debris. There i s no CT evidence of acute pneumonia. SL:131 Impression By: [email or web address] - Kaylynn Garay M.D. ULTRASOUND - DUP EXTRACRANIAL HILARIO 04/13 0878 Report Impression - Status: SIGNED Entered: 04/13/2021 0950 IMPRESSION: No carotid arterial stenosis. REFERENCES: SRU CRITERIA. The degree of internal carotid art marleny stenosis is based on criteria defined by the Society of Radi ologists in Ultrasound (SRU). Normal is no stenosis. Mild is less than 50% stenosis. Moderate is 50-69% stenosis. Severe is greater than 69% stenosis to near occlusion. Near occlusion is a markedly narrowed lumen. Total occlusion is no detectable patent l umen. Impression By: Kelsi Gibbs CAT SCAN - CT HEAD/BRAIN W/O CONT 04/13 1007 Report Impression - Status: SIGNED Entered: 04/13/2021 1020 IMPRESSION: No acute territorial infarct or intracranial hem orrhage detected. COMMENTS: If there is further clinical concern for intracr anial pathology, MRI of the brain may be performed for further as sessment. Impression By: [email or web address] - Hill Lovell M.D. Diagnosis, Assessment Plan Plan discussed with: daughter, collaborating MD, nurse Free Text DxA P Notes Free text DxA P notes: This is a 84 year old male with history of Hypertension, PVD and Afib(Xarelto) who was admitted to [facility] Emergency Room for AMS and unresponsiveness x 10 minutes post procedure. Rapid response called this morning due to AMS this morning. Exam significant for mild right facial droop, difficulty to assess fully due to combativeness of patient and agitat ion. Stat CT Head ordered and labs. Would like to rule out Stroke given his h/ o Afib. AMS/Suspect Toxic Metabolic Encephalopathy Behavioral Disturbance Delirium in setting of Probable Underlying Cogni tive Impairment/Dementia Plan: -Stat CT Head : no acute cerebral process or hem orrhage -MRI of Brain to rule out acute intracranial Abn ormality -Check Pertinent labs -Continue Telemetry monitoring -Check MRA of Head and Neck -Delirium precautions: Frequent orientation to s urrounds, family etc.Blinds / Light up and on during the day and down and off during the night. -Follow Hospital mediciine recommendations Disp: Neurology will follow Other Medical Conditions: S/P Angiogram of LLE PVD Afib Possible MCI Hypertension Priti Cooper APRN-AUDIO ENGINEER for Ou, Esequiel Caballero Neuro Hospitalist Ou,Esequiel 04/13/21 1208: Attestations Physician Attestation Agree w/findings plan: I saw and examined the patie nt, personally reviewed all pertinent data including imaging, and formulated the plan of care together with Priti Cooper NP. Briefly, this is an 84-year-old man with a history of atrial fibrillation (off xarelto due to recent vascular procedure), suspe cted neurocognitive decline, peripheral vascular disease who presented with acutely decreased responsiveness with confusion vs ?apraxia and who continues to have behavioral disturbance/ agitation/combativeness which precludes formal n eurologic assessment. Examination limited by patie nt agitation and incooperation, unable to determine presence of focality. Given recent vascular proc edure and non-anticoagulation for high-risk atrial fibrillation recommend ruli ng out stroke. Evaluate for reversible causes of cognitive impairment and de lirium precautions as above. Will follow up results of testing with f tyrell recommendations. Discussed with patient's daughter, RN. The total time on the date o f the encounter was 45 minutes, of which no time was overlapping with another provider. This includes [id number] time with the patient, preparation, completing documentation a nd coordination of care associated with this visit. Electronically Signed by Esequiel Becerra MD on 04/02 05/24 at 1212 at 1115 RPT #:[id number] END OF REPORT 2021-04-13 06:16:00-00:00 [facility] ([facility]) Hospitalist History Physical REPORT#:[id number] REPORT STATUS: Signed DATE:04/13/21 TIME: 615 PATIENT: KAYLYNN MISTRY UNIT #: [id number] ROOM/BED: [place] [address] : [birth year] AGE: 84 SEX: M ATTEND: José Jimenez MD ADM AUTHOR: José Jimenez MD * ALL edits or amendments must be made on the [employer]/computer document * History of Present Illness HPI Chief complaint: AMS PCP: PCP: Mamadou Leigh MD HPI: 84-year-old male with a h/o of BPH/PVD/HTN/tobacco abuse who presents to the ED accompanied by daughter who reports patient has been altered intermittently since 10 pm SUNDAY night aft er having an "unresponsive episode for 10 minutes". The patient on SUNDAY had a cardio angiogram and leg procedure in which they found 100% blockage to the l eft leg, states patient was fine and was discharged home that same day and reports at approximately 10 PM patient became unresponsive, not answering questions, breathing hard, looked boggs, states patient began to wake up whe n EMS arrived on scene and was alert andoriented x4 and refused transport. Daughter reports they spo ke with slat basket maker that completed procedure yesterday outpatient Kyle Holt and was told to come to ED for further evaluation an d need for admission to have a balloon placed to the left leg d/t blockage. Daughter reports intermit tently today patient is disoriented, gives examples as attempted to put towel on thinking it was pants, attempted to turn flashlight on using his walker. Daughter also reports patient has been off of blood thinne rs since 04/08 for angiogram procedure is supposed to restart tonight, also has pressure dressing to t he right wrist from angiogram that is supposed to be remov ed tonight. Reports pt has been on xarleto for last month. Patient is alert and oriented x4 on exam, denies any chest pain, shortness of breath, headach e, dizziness, fever, chills, sore throat, congestion , abdominal pain. Daughter reports patient has p roblems with incontinence and is becoming worse. Reports other past medical hx of HTN, chronic back pain. CT of the head showed no bleeding. and CTA of th e chest showed no PE. History Past Medical Surgical Hx Patient History: 1. Altered mental status 2. Episode of unresponsiveness 3. HTN (hypertension) 4. BPH (benign prostatic hyperplasia) 5. PVD (peripheral vascular disease) Additional surgical history: hydracele testical tonsills hernia appy cyst behind ear Family History Additional family history: not relavent to current illness Social History Alcohol use: Denies EtOH use (moderately heavy, 2 drinks day), Alcohol use Drug use: Denies recreational drugs Smoking status: Smoking status for patients 13 years old or old er: Heavy tobacco smoker (2 packs per day) Date last smoked: 04/12/21 Packs per day: 1.5 Years smoked: 72 Medication/Allergy-Vaccine Hx Medications: Home Medications: LOSARTAN (COZAAR) 100 MG PO DAILY RIVAROXABAN (XARELTO) 20 MG PO DAILY TAMSULOSIN ER (FLOMAX) 0.4 MG PO DAILY Allergies: Coded Allergies: No Known Allergies (04/12/21) Review of Systems All systems rev neg: except as noted Physical Exam VS/I O: Vital Signs Date Temp Pulse Resp B/P B/P Mean Pulse Ox FiO 2 04/12-04/13 98.2-98.6 78-96 16 126-167/85-95 98 -119.0 95-98 Last Documented: Result Date Time Pulse Ox 95 04/13 0507 B/P 167/95 04/13 0507 B/P Mean 119.0 04/13 0507 O2 Delivery Room air 04/13 050 Temp 98.6 04/13 0507 Pulse 78 04/13 0507 Resp 16 04/13 0507 24 hour I O ending at 0700: 04/13 0700 04/12 1900 Intake Total 250 Output Total 150 Balance 100 Intake, Oral 250 Output, Urine 150 Patient 82.727 kg Weight Weight Stated/Reported Measurement Method Patient Weight and BMI Weight (kg): 82.727 BMI: 26.9 General appearance: alert, awake Head/Eyes: atraumatic, normocephalic ENT: normal ear left, normal ear right, normal n ose Neck: full range of motion, no JVD Cardiovascular: regular rate rhythm Respiratory: aerating well, clear to auscultatio n, symmetric expansion, no distress Abdomen: non-tender, normal bowel sounds, soft, no distention Extremities: no clubbing, no cyanosis, no edema Neuro/HAND COLLATOR: altered mental status Results Radiology data: Laboratory Tests 04/12/21 1943: [Embedded Image Not Available] Current Medications Sig/Tate Start time Last Medication Dose Route Stop Time Status Admin Folic Acid 1 MG DAILY 04/13 899 AC PO 05/13 858 Losartan Potassium 100 MG DAILY 04/13 899 AC PO 05/13 858 Multivitamins 1 TAB DAILY 04/13 899 AC PO 05/13 858 Rivaroxaban 20 MG DAILY 04/13 899 UNV PO 05/13 858 Tamsulosin HCl 0.4 MG DAILY 04/13 899 AC PO 02/11 0859 Thiamine HCl 100 MG DAILY 04/13 0900 UNV PO 05/13 0859 Thiamine HCl 100 MG ONCE ONE 04/13 0630 UNV Sodium Chloride 50 ML IV 04/13 0649 Acetaminophen 650 MG Q4H PRN PRN 04/13 0615 AC PO 05/13 0614 Ondansetron HCl 4 MG Q4H PRN PRN 04/13 0615 AC IV 05/13 0614 Lorazepam 0.5 MG Q6H PRN PRN 04/13 0445 AC IV 05/13 0444 Sodium Chloride 0 ASDIR PRN 04/13 0445 AC IV 05/13 0444 Iopamidol 100 ML .STK-MED ONE 04/12 2037 DC IV 04/12 Sodium Chloride 0 ASDIR PRN 04/12 1745 AC IV 04/13 1644 Sodium Chloride 1,000 ML X1ED STA 04/12 1744 DC 04/12 IV 04/12 1842002 Laboratory Tests: 04/12 04/12 04/12 2100 1957 1942 Chemistry Lactic Acid (0.4 - 1.9 mmol/L) 1.3 Serology SARS-CoV-2 Ag (Rapid) (Negative) Negative Urines Urine Color (YEL/STRAW) YELLOW Urine Appearance (CLEAR) CLEAR Urine pH (5.0 - 7.0) 5.0 Ur Specific Murphy (1.005 - 1.030) 1.028 Urine Protein (NEGATIVE) NEGATIVE Urine Glucose (UA) (NEGATIVE) NEGATIVE Urine Ketones (NEGATIVE) NEGATIVE Urine Blood (NEGATIVE) NEGATIVE Urine Nitrite (NEGATIVE) NEGATIVE Urine Bilirubin (NEGATIVE) NEGATIVE Urine Urobilinogen (0.2 - 1.0 mg/dL) 0.2 Ur Leukocyte Esterase (NEGATIVE) NEGATIVE Urine RBC (0 - 3 RBC/HPF) 0-3 Urine WBC (0 - 3 WBC/HPF) 0-3 Ur Squamous Epith Cells (NONE SEEN /HPF) NONE S EEN Urine Bacteria (NONE SEEN /HPF) NONE SEEN Urine Mucus (NONE SEEN /LPF) TRACE 04/12 1942 Chemistry Sodium (134 - 147 mEq/L) 144 Potassium (3.4 - 5.0 mEq/L) 3.7 Chloride (100 - 108 mEq/L) 108 Carbon Dioxide (21 - 33 mEq/l) 29 Anion Gap (0 - 20) 11 BUN (7 - 18 mg/dL) 17 Creatinine (0.6 - 1.3 mg/dL) 1.0 Glomerular Filtr Rate (70 - 80) 71.2 Glucose (70 - 110 mg/dL) 67 L Calcium (8.0 - 10.5 mg/dL) 9.5 Total Bilirubin (0.0 - 1.0 mg/dL) 1.10 H Direct Bilirubin (0.0 - 0.30 MG/DL) 0.40 H Indirect Bilirubin (MG/DL) 0.70 AST (15 - 37 IUnit/L) 23 ALT (30 - 65 IUnit/L) 14 L Total Alk Phosphatase (20 - 125 IUnit/L) 89 Troponin I High Sens (0 - 54 ng/L) 40 Total Protein (6.4 - 8.2 g/dL) 7.1 Albumin (3.4 - 5.0 g/dL) 4.00 Coagulation INR (0.8 - 1.2) 1.2 PTT ([place]) (25.0 - 39.5 Seconds) 31.5 PT Patient/Control Mix (9.3 - 12.9 SECONDS) 12. 9 Hematology WBC (4.5 - 11.0 x10 3/uL) 9.3 RBC (4.00 - 5.60 x10 6/uL) 5.00 Hgb (12.5 - 16.9 g/dL) 16.0 Hct (37.5 - 50.7 %) 48.2 MCV (81.0 - 99.0 fL) 96.4 MCH (27.0 - 33.0 pg) 32.0 MCHC (33.0 - 37.0 g/dL) 33.2 RDW (11.5 - 14.5 %) 14.1 Plt Count (150 - 400 x10 3/uL) 164 MPV (7.0 - 9.0 fL) 10.7 H Neut % (Auto) (56.0 - 77.0 %) 66.3 Lymph % (Auto) (14.0 - 32.0 %) 21.5 Person % (Auto) (4.8 - 9.0 %) 10.6 H Eos % (Auto) (0.3 - 3.7 %) 0.8 Baso % (Auto) (0.0 - 2.0 %) 0.5 Neut # (Auto) (2.0 - 7.6 x10 3/uL) 6.13 Lymph # (Auto) (1.0 - 3.8 x10 3/uL) 1.99 Person # (Auto) (0.1 - 0.8 x10 3/uL) 0.98 H Eos # (Auto) (0.0 - 0.2 x10 3/uL) 0.07 Baso # (Auto) (0.0 - 0.2 x10 3/uL) 0.05 Abs Immat Gran (auto) (0.00 - 0.03 x10 3/uL) 0. 03 Add Manual Diff NO Immature Gran % (0.0 - 2.0 %) 0.3 Nucleated RBC % (0 - 0 %) 0.0 Nucleated RBCs # (Man) (0.0 - 0.1 x10 3/uL) 0. 00 Microbiology: 04/12 1942 BLOOD: Blood Culture - RECD 04/12 1942 BLOOD: Blood Culture - RECD Recent Impressions: RADIOLOGY - XR CHEST 1 V 04/12 1800 Report Impression - Status: SIGNED Entered: 04/12/20211816 IMPRESSION: No acute cardiopulmonary findings. Impression By: [email or web address] - Martina Mai CAT SCAN - CT HEAD/BRAIN W/O CONT 04/12 2038 Report Impression - Status: SIGNED Entered: 04/12/20212111 IMPRESSION: 1. There is a moderately heavy burden of hypoden se lesions in the bilateral frontal parietal white matter and righ t basal ganglia. These are probably secondary to chronic small ve ssel ischemic disease, however they are age indeterminate with out a comparison study and I cannot exclude an acute or subacute lacunar infarction. If there is clinical suspicion of acute ischemi a, further evaluation with MRI could be considered. 2. There is no mass effect, midline shift, acute intracranial hemorrhage, or large arterial vessel territory a cute cerebral cortical edema detected. 3. The evaluation is mildly limited due to patie nt motion. Impression By: [email or web address] - Jb Sorto D.O. CAT SCAN - CT ANGIO CHEST 04/12 2041 Report Impression - Status: SIGNED Entered: 04/12/20212115 IMPRESSION: 1. No CT evidence of acute pulmonary embolism. 2. Mild bronchial wall thickening is present, leon ggesting bronchitis, with several lower lobe endobronchia l filling defects likely representing inflammatory debris. There i s no CT evidence of acute pneumonia. SL:131 Impression By: [email or web address] - Kaylynn Garay M.D. Diagnosis, Assessment Plan Problem List/A P: 1. Altered mental status 2. Episode of unresponsiveness 3. HTN (hypertension) 4. BPH (benign prostatic hyperplasia) 5. PVD (peripheral vascular disease) Free Text A P: 84 y/o with PVD/HTN/tobacco abuse who presents with AMS after elective angiogram of his legs. 1. Altered mental status - after angio o f his legs. r/o CVA. neuro to see. MRI brain pending. check echo/dopplers. on tele. PRN ativan for agitation 2. Episode of unresponsiveness - awaiting cards/ neuro to see 3. HTN (hypertension) - cont home losartan 4. BPH (benign prostatic hyperplasia) - on floma x 5. PVD (peripheral vascular disease) - on xarelt o. 6. h/o moderartly heavy etoh - 2 mixed d rinks a night. thiamine and PRN ativan on xarelto, will cover DVT prophylaxis Quality: Gen Med Crit Care Advanced Care Plan 65 or Older Discussed with: patient, surrogate decis. maker Discussion included: living will, power of attor mavis Electronically Signed by José Jimenez MD on 04/02 05/24 at 0626 RPT #:[id number] END OF REPORT 2021-04-12 17:50:00-00:00 [facility] EMERGENCY PROVIDER REPORT REPORT#:[id number] REPORT STATUS: Signed DATE:04/12/21 TIME: 1749 PATIENT: KAYLYNN MISTRY UNIT #: [id number] ROOM/BED: [place] [address] AGE: 85 SEX: M PCP PHYS: Mamadou Leigh MD SERVICE AUTHOR: Nettie Mckeon P * ALL edits or amendments must be made on the [employer]/computer document * Nettie Mckeon 04/12/21 1750: HPI-Altered Mental Status General Confirmed Patient Yes Patient Type New patient Initial Greet Date/Time 04/12/21 1721 PCP Mamadou Leigh Cardio-Kyle Alvarez Presentation Chief Complaint Disoriented Onset of Sx (Nursing) Date: 04/11/21 Time: 2200 Hx Obtained From Patient, Family Sudden in Onset? Yes Free Text HPI Notes Free Text HPI Notes 84-year-old male presents to the ED accompanied by daughter who reports patient has been altered intermittently since 10 PM last night after having an "unresponsive episode for 10 minutes". Daughter reports yesterday patient had a cardio angiogram and leg pro cedure in which they found 100% blockage to the left leg, states patient was fine and was discharged home reports at approximately 10 PM patient became unresponsi ve, not answering questions, breathing hard, looked boggs, states patient began to wake up when EMS a rrived on scene and was alert and oriented x4 and refused transport. Daughter reports they spoke with slat basket maker that completed procedure yesterday outpatient Kyle Holt and was told to come to ED for further evaluation and ne ed for admission to have a balloon placed to the left leg d/t blockage. John garcia reports intermittently today patient is disoriented, gives examples as attempted to put towel on thinking it was pants, attempted to turn wally ght on using his walker. Daughter also reports patient has been off of bl ood thinners since 04/08 for angiogram procedure is supposed to resta rt tonight, also has pressure dressing to the right wrist from angiogram that is suppos ed to be removed tonight. Reports pt has been on xarle to for last month. Patient is alert and oriented x4 on exam, denies any chest pa in, shortness of breath, headache, dizziness, fever, chills, sore throat, congestion, abdominal pain. Daughter reports patient has problems with incontinence a nd is becoming worse. Reports other past medical hx of HTN, chronic back pain. Risk-Altered Mental Status NIH Stroke Scale NIH Stroke Scale Response Value NIHSS Applicable? Yes 0 Level of Consciousness Alert and responsive (0) 0 Ask Month Age Both questions right (0) 0 Blink Eyes/Squeeze Hands Performs both tasks (0 ) 0 Horizontal EOM NL side/side eye mvmt (0) 0 Visual Parikh No visual loss (0) 0 Facial Palsy Normal symmetry (0) 0 Right Arm Motor Drift (10s) No drift 10 sec (0) 0 Left Arm Motor Drift (10s) No drift 10 sec (0) 0 Right Leg Motor Drift (5s) No drift 5 sec (0) 0 Left Leg Motor Drift (5s) No drift 5 sec (0) 0 Limb Ataxia FNF/Heel-Nguyen No ataxia (0) 0 Sensation (Arms/Legs/Face) No sensory loss (0) 0 Language Aphasia No aphasia, normal (0) 0 Dysarthria No dysarthria (0) 0 Extinction/Inattention No extinct/inattent (0) 0 Total 0 NIH Stroke Score Timing Time 1735 VAN Score VAN Score Negative Weakness Review of Systems ROS Statements All systems rev neg except as marked. Free Text ROS Notes Free Text ROS Notes Per HPI Past Medical History - Adult Stated Complaint S/P ANGIO, CONFUSION SINCE 10PM Allergies Coded Allergies: No Known Allergies (04/12/21) Past Medical History: Reports: Hypertension, BPH, Chronic pain. Alcohol Use Denies EtOH use Drug Use Denies recreational drugs Smoking status: Smoking status for patients 13 years ol d or older: Current every day smoker ( 2 packs per day) Physical Exam Vital Signs Vital Signs First Documented: Result Date Time Pulse Ox 98 04/12 1727 B/P 126/85 04/12 172 B/P Mean 98 04/12 172 O2 Delivery Room air 04/12 1727 Temp 36.8 04/12 1727 Pulse 96 04/12 1727 Resp 16 04/12 1727 Last Documented: Result Date Time Pulse Ox 99 04/12 2099 B/P 129/83 04/12 2099 B/P Mean 98 04/12 2099 O2 Delivery Room air 04/12 2099 Temp 36.8 04/12 2099 Pulse 93 04/12 2099 Resp 16 04/12 2099 Review of Vital Signs Reviewed Focused PE General/Const General/Const Awake, Alert, No acute distress, Cooperative MS Head Head Atraumatic, Normocephalic Eyes Eyes Atraumatic, PERRL, EOMI, No nystagmus Ears/Nose/Throat Ears/Nose/Throat Atraumatic, Airway patent, Muc ous membranes moist MS Neck Neck Atraumatic, Full range of motion, No swell ing, Non-tender, No midline vertebral tend Resp/Chest Respiratory/Chest Atraumatic, Breath so unds = bilat, No respiratory distress, No retractions Wheezing/Retractions Wheeze insp/exp diffuse, Wheezing mild. Cardiovascular Cardiovascular Regular rhythm, Heart sounds NL, No gallop, No murmurs, No rubs, Cap refill not delayed, Peripheral circula tion NL Heart Rate/Rhythm Tachycardia. Abdomen/GI Abdomen/GI Atraumatic, Soft, Non-tender, No gua rding, No rebound, No distention MS Back Back Atraumatic, Inspection NL, Non-tender, No paraspinal tenderness, No CVA tenderness Neurologic Neurologic Oriented X3, Speech NL, No motor def icits, No sensory deficits Text/Dict Notes Pt reports ongoing L leg weakness for last 3-4 m [facility]. Interpretation Diagnostics Lab Results Interpretation Results Laboratory Tests 04/12/211942: [Embedded Image Not Available] Laboratory Tests: 04/12 04/12 04/12 04/12 2100 1957 1942 1942 Chemistry Sodium (134 - 147 mEq/L) 144 Potassium (3.4 - 5.0 mEq/L) 3.7 Chloride (100 - 108 mEq/L) 108 Carbon Dioxide (21 - 33 mEq/l) 29 Anion Gap (0 - 20) 11 BUN (7 - 18 mg/dL) 17 Creatinine (0.6 - 1.3 mg/dL) 1.0 Glomerular Filtr Rate (70 - 80) 71.2 Glucose (70 - 110 mg/dL) 67 L Lactic Acid (0.4 - 1.9 mmol/L) 1.3 Calcium (8.0 - 10.5 mg/dL) 9.5 Total Bilirubin (0.0 - 1.0 mg/dL) 1.10 H Direct Bilirubin (0.0 - 0.30 MG/DL) 0.40 H Indirect Bilirubin (MG/DL) 0.70 AST (15 - 37 IUnit/L) 23 ALT (30 - 65 IUnit/L) 14 L Total Alk Phosphatase (20 - 125 IUnit/L) 89 Troponin I High Sens (0 - 54 ng/L) 40 Total Protein (6.4 - 8.2 g/dL) 7.1 Albumin (3.4 - 5.0 g/dL) 4.00 Coagulation INR (0.8 - 1.2) 1.2 PTT (Shira) (25.0 - 39.5 Seconds) 31.5 PT Patient/Control Mix (9.3 - 12.9 12.9 SECONDS) Hematology WBC (4.5 - 11.0 x10 3/uL) 9.3 RBC (4.00 - 5.60 x10 6/uL) 5.00 Hgb (12.5 - 16.9 g/dL) 16.0 Hct (37.5 - 50.7 %) 48.2 MCV (81.0 - 99.0 fL) 96.4 MCH (27.0 - 33.0 pg) 32.0 MCHC (33.0 - 37.0 g/dL) 33.2 RDW (11.5 - 14.5 %) 14.1 Plt Count (150 - 400 x10 3/uL) 164 MPV (7.0 - 9.0 fL) 10.7 H Neut % (Auto) (56.0 - 77.0 %) 66.3 Lymph % (Auto) (14.0 - 32.0 %) 21.5 Person % (Auto) (4.8 - 9.0 %) 10.6 H Eos % (Auto) (0.3 - 3.7 %) 0.8 Baso % (Auto) (0.0 - 2.0 %) 0.5 Neut # (Auto) (2.0 - 7.6 x10 3/uL) 6.13 Lymph # (Auto) (1.0 - 3.8 x10 3/uL) 1.99 Person # (Auto) (0.1 - 0.8 x10 3/uL) 0.98 H Eos # (Auto) (0.0 - 0.2 x10 3/uL) 0.07 Baso # (Auto) (0.0 - 0.2 x10 3/uL) 0.05 Abs Immat Gran (auto) (0.00 - 0.03 0.03 x10 3/uL) Add Manual Diff NO Immature Gran % (0.0 - 2.0 %) 0.3 Nucleated RBC % (0 - 0 %) 0.0 Nucleated RBCs # (Man) (0.0 - 0.1 0.00 x10 3/uL) Serology SARS-CoV-2 Ag (Rapid) (Negative) Negative Urines Urine Color (YEL/STRAW) YELLOW Urine Appearance (CLEAR) CLEAR Urine pH (5.0 - 7.0) 5.0 Ur Specific Murphy (1.005 - 1.030) 1.028 Urine Protein (NEGATIVE) NEGATIVE Urine Glucose (UA) (NEGATIVE) NEGATIVE Urine Ketones (NEGATIVE) NEGATIVE Urine Blood (NEGATIVE) NEGATIVE Urine Nitrite (NEGATIVE) NEGATIVE Urine Bilirubin (NEGATIVE) NEGATIVE Urine Urobilinogen (0.2 - 1.0 mg/dL) 0.2 Ur Leukocyte Esterase (NEGATIVE) NEGATIVE Urine RBC (0 - 3 RBC/HPF) 0-3 Urine WBC (0 - 3 WBC/HPF) 0-3 Ur Squamous Epith Cells (NONE SEEN /HPF) NONE S EEN Urine Bacteria (NONE SEEN /HPF) NONE SEEN Urine Mucus (NONE SEEN /LPF) TRACE Microbiology: Date/Time Procedure - Status Source Growth 04/12 1942 Blood Culture - RES BLOOD 04/12 1942 Blood Culture - RES BLOOD Recent Impressions: RADIOLOGY - XR CHEST 1 V 04/12 1800 Report Impression - Status: SIGNED Entered: 04/12/20211816 IMPRESSION: No acute cardiopulmonary findings. Impression By: [email or web address] - Martina Mai CAT SCAN - CT HEAD/BRAIN W/O CONT 04/12 2038 Report Impression - Status: SIGNED Entered: 04/12/20212111 IMPRESSION: 1. There is a moderately heavy burden of hypoden se lesions in the bilateral frontal parietal white matter and righ t basal ganglia. These are probably secondary to chronic small ve ssel ischemic disease, however they are age indeterminate with out a comparison study and I cannot exclude an acute or subacute lacunar infarction. If there is clinical suspicion of acute ischemi a, further evaluation with MRI could be considered. 2. There is no mass effect, midline shift, acute intracranial hemorrhage, or large arterial vessel territory a cute cerebral cortical edema detected. 3. The evaluation is mildly limited due to patie nt motion. Impression By: [email or web address] - Jb Sorto D.O. CAT SCAN - CT ANGIO CHEST 04/12 2041 Report Impression - Status: SIGNED Entered: 04/12/20212115 IMPRESSION: 1. No CT evidence of acute pulmonary embolism. 2. Mild bronchial wall thickening is present, leon ggesting bronchitis, with several lower lobe endobronchia l filling defects likely representing inflammatory debris. There i s no CT evidence of acute pneumonia. SL:131 Impression By: Alexa - Kaylynn Garay M.D. Re-Evaluation MDM Free Text MDM Notes Free Text MDM Notes 2199-Care transferred to MD Daley. ED Course Medication(s) Ordered Medication(s) Ordered: Diagnostic Agents Sig/Tate Start time Last Medication Dose Route Stop Time Status Admin Iopamidol 100 ML .STK-MED ONE 04/12 2037 DC IV 04/12 Electrolytic, Caloric, And Mirella Sig/Tate Start time Last Medication Dose Route Stop Time Status Admin Sodium Chloride 0 ASDIR PRN 04/12 1745 AC IV 04/13 1644 Sodium Chloride 1,000 ML X1ED STA 04/12 1744 DC 04/12 IV 04/12 1843 2002 Patient Discharge Departure Vital Signs/Condition Vital Signs First Documented: Result Date Time Pulse Ox 98 04/12 1728 B/P 126/85 04/12 1728 B/P Mean 98 04/12 1728 O2 Delivery Room air 04/12 1728 Temp 36.8 04/12 1728 Pulse 96 04/12 1728 Resp 16 04/12 1728 Last Documented: Result Date Time Pulse Ox 99 04/12 2100 B/P 129/83 04/12 2100 B/P Mean 98 04/12 2100 O2 Delivery Room air 04/12 2100 Temp 36.8 04/12 2100 Pulse 93 04/12 2100 Resp 16 04/12 2100 All vital signs available at the time of this en try have been reviewed. Ayse Daley 04/12/21 2334: Past Medical History - Adult Home Medications Reported Medications LOSARTAN (COZAAR) 100 MG PO DAILY RIVAROXABAN (XARELTO) 20 MG PO DAILY TAMSULOSIN ER (FLOMAX) 0.4 MG PO DAILY Re-Evaluation MDM )( Re-Evaluation/Progress #1 Text/Dict Note Assumed care from midlevel. Labs and imaging rev iewed. Patient with questionable acute versus subacute cereb ral infarcts. 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 Will admit patient for further paradise luation and management. We will consult neurology. Time of Re-Eval 2335 )( Re-Eval Status Unchanged Consultation Consultation 1 Referral/Consult Name Kyle Davies MD [facility] Called Cardiology Requested Call Time 2219 Requested Call Date 04/12/21 Call Returned Call returned Call Returned Time 2219 Call Returned Date 04/12/21 [facility] Will see patient Consultation 2 Referral/Consult Name ; Kong Mandujano MD [facility] Called Neurology Free Text Consult Notes Sent a text message Patient Discharge Departure Clinical Impression Clinical Impression Primary Impression: Altered mental status Secondary Impressions: Episode of unresponsivene ss Disposition Decision Admit Admit Physician Name José Jimenez MD Admit Physician Hospitalist Request Time 2337 Request Date 04/12/21 )( Admission Accepts Yes )( Accepted Time 2337 )( Accepted Date 04/12/21 Call Information will see patient Discharge/Care Plan Counseled Regarding Diagnosi s, Lab results, Imaging studies, Need for admission Supervising Physician Note MidLv/Doc Saw Pt 1 I have seen and evaluated th is patient and agree with the nurse practitioner or physician assistant case manager's docume ntation and assessment. Documentation of one or more elements of my assessment are included in the ut dical record. at 0007 Electronically Signed by Ayse Daley DO on at 0151 RPT #:[id number] END OF REPORT
[2022-12-04] MEDS ORDERED: NA CHLORIDE 0.9% 1,000 ML ONE (03:07)
[2022-12-04 03:38] LABS: Absolute Lymphocytes (CBC) 1.4 K/uL (0.7-4.9); Hematocrit 46.3 % (39.6-49.0); Lymphocytes % 15.7 % (15.3-44.8); MCV 95.8 fL (80-100); MPV 8.8 fL (7.6-11.3); Platelets 149 thou/uL (152-406); Protime INR 1.16; RBC Red Blood Cell Count 4.83 M/uL (4.33-5.43)
--- NOTE | 2022-12-04 03:49 | ER ---
Nurse's Notes [facility] Name: Wale Mistry Age: 87 yrs Sex: Male : 1935 Arrival Date: 12/04/2022 Time: 02:14 Bed 6 Private MD: Mary Ann Aponte Diagnosis: Dyspnea;Essential (primary) hypertension;COPD/ Chronic obstructive pulmonary disease with (acute) exacerbation;Persistent atrial fibrillation;Non ST elevation [place] Presentation: 12/04 02:43 Chief complaint: Patient states: I woke up around 6 pm feeling short of breath, dizzy vc1 and real weak. Patient's son or daughter states: We called an ambulance and they said he was wheezy and had a high blood pressure. He decided he didn't want to ride in the ambulance. Coronavirus screen: Client denies travel out of the [place] in the last 14 days. cough unrelated to allergies, difficulty breathing, fatigue, shortness of breath, Client presents with at least one sign or symptom that may indicate coronavirus-19. Ebola Screen: Patient negative for fever greater than or equal to 101.5 degrees Fahrenheit, and additional compatible Ebola Virus Disease symptoms Patient denies exposure to infectious person. Patient denies travel to an Ebola-affected area in the 21 days before illness onset. No symptoms or risks identified at this time. Initial Sepsis Screen: Does the patient meet any 2 criteria? No. Patient's initial sepsis screen is negative. Does the patient have a suspected source of infection? No. Patient's initial sepsis screen is negative. Risk Assessment: Do you want to hurt yourself or someone else? Patient reports no desire to harm self or others. Onset of symptoms was December 03, 2022 at 18:00. 02:43 Method Of Arrival: Ambulatory vc1 02:43 Acuity: VINOD 3 vc1 02:46 Note Also complaining of right shoulder pain. vc1 Triage Assessment: 02:46 General: Appears in no apparent distress. uncomfortable, ill, Behavior is cooperative. vc1 Pain: Complains of pain in anterior aspect of right shoulder Pain does not radiate. Pain currently is 10 out of 10 on a pain scale. Quality of pain is described as sharp. EENT: No deficits noted. No signs and/or symptoms were reported regarding the EENT system. Neuro: Level of Consciousness is awake, alert, obeys commands, Oriented to person, place, time, situation, Appropriate for age. Cardiovascular: Reports shortness of breath. Respiratory: Airway is patent Respiratory effort is even, unlabored, Respiratory pattern is symmetrical, tachypnea. GI: No deficits noted. No signs and/or symptoms were reported involving the gastrointestinal system. : No deficits noted. No signs and/or symptoms were reported regarding the genitourinary system. Derm: No deficits noted. No signs and/or symptoms reported regarding the dermatologic system. Musculoskeletal: No deficits noted. No signs and/or symptoms reported regarding the musculoskeletal system. Historical: - Allergies: 02:45 No Known Allergies; vc1 - Home Meds: 02:49 finasteride 5 mg oral tablet daily [Active]; folic acid 1 mg Oral tablet daily vc1 [Active]; aspirin 81 mg Oral tablet,chewable daily [Active]; Plavix 75 mg Oral tablet daily [Active]; metoprolol tartrate 25 mg Oral tablet 2 times per day [Active]; pantoprazole 40 mg oral granules delayed release for susp packet every morning [Active]; Flomax 0.4 mg Oral capsule daily [Active]; losartan 100 mg oral tablet daily [Active]; - PMHx: 02:45 Atrial Fib; Hypertension; vc1 - PSHx: 02:45 heart stent; left leg stents; vc1 - Immunization history:: Client reports receiving the 2nd dose of the Covid vaccine, plus one booster; Moderna. - Social history:: Smoking status: Patient reports the use of cigarette tobacco products, smokes one pack cigarettes per day. Screenin:49 Abuse screen: Denies threats or abuse. Nutritional screening: No deficits noted. vc1 Tuberculosis screening: No symptoms or risk factors identified. 02:51 [facility] ED Fall Risk Assessment (Adult) History of falling in the last 3 months, vc1 including since admission No falls in past 3 months (0 pts) Confusion or Disorientation No (0 pts) Intoxicated or Sedated No (0 pts) Impaired Gait No (0 pts) Mobility Assist Device Used No (0 pt) Altered Elimination No (0 pt) Score/Fall Risk Level 0 - 2 = Low Risk Oriented to surroundings, Maintained a safe environment, Educated pt \T\ family on fall prevention, incl call for assistance when getting out of bed. Assessment: 02:27 General: Appears uncomfortable, Behavior is calm, cooperative. Pain: Complains of pain ha1 in right arm and anterior aspect of right shoulder. 02:27 Neuro: Level of Consciousness is awake, alert, obeys commands, Oriented to person, ha1 place, time, situation, Reports dizziness, weakness. Cardiovascular: Reports shortness of breath, Heart tones S1 S2 present Capillary refill < 3 seconds. Respiratory: Airway is patent Respiratory effort is even, unlabored, Respiratory pattern is regular, tachypnea. Respiratory: Reports shortness of breath at rest Breath sounds with wheezes bilaterally. GI: No signs and/or symptoms were reported involving the gastrointestinal system. Abdomen is round. Derm: Skin is fragile, Skin is normal. Musculoskeletal: Circulation, motion, and sensation intact. 03:30 Reassessment: Patient and/or family updated on plan of care and expected duration. Pain ha1 level reassessed. Patient is alert, oriented x 3, equal unlabored respirations, skin warm/dry/pink. 04:30 Reassessment: Patient and/or family updated on plan of care and expected duration. Pain ha1 level reassessed. Patient is alert, oriented x 3, equal unlabored respirations, skin warm/dry/pink. 05:30 Reassessment: Patient and/or family updated on plan of care and expected duration. Pain ha1 level reassessed. Patient is alert, oriented x 3, equal unlabored respirations, skin warm/dry/pink. Patient states feeling better. Patient states symptoms have improved. Vital Signs: 02:43 BP 131 / 99; Pulse 74; Resp 24; Temp 97.6; Pulse Ox 93% ; Pain 10/10; vc1 02:45 BP 120 / 92; Pulse 66; Resp 20 S; Pulse Ox 97% on R/A; ha1 03:47 BP 150 / 113; Pulse 70; Resp 20 S; Pulse Ox 97% on R/A; ha1 04:34 BP 138 / 94; Pulse 81; Resp 20; Pulse Ox 100% on R/A; pf1 05:02 BP 127 / 61; Pulse 86; Resp 22; Pulse Ox 96% on R/A; Pain 0/10; pf1 05:31 Weight 79.38 kg; ha1 02:43 Pain Scale: Adult vc1 05:02 Pain Scale: Adult pf1 ED Course: 02:18 Patient arrived in ED. mr 02:18 Mary Ann Aponte DO is Private Physician. mr 02:34 Db Tobar MD is Attending Physician. jose 02:45 Triage completed. vc1 02:48 Arm band placed on right wrist. vc1 02:51 Patient has correct armband on for positive identification. Bed in low position. Call vc1 light in reach. Client placed on continuous cardiac and pulse oximetry monitoring. NIBP monitoring applied. 03:15 No provider procedures requiring assistance completed. Inserted saline lock: 20 gauge pf1 in left antecubital area, using aseptic technique. Blood collected. 03:22 XRAY Chest (1 view) In Process Unspecified. EDMS 03:27 Basic Metabolic Panel Sent. ha1 03:27 CBC with Diff Sent. ha1 03:27 LFT's Sent. ha1 03:27 Magnesium Sent. ha1 03:27 NT PRO-BNP Sent. ha1 03:27 PT-INR Sent. ha1 03:28 Troponin HS Sent. ha1 03:48 Сергей Bradley MD is Hospitalizing Provider. jose 04:11 SARS RAPID Sent. ha1 04:11 Flu Sent. ha1 05:19 Provided Education on: admission education. pf1 05:31 Urinalysis w/ reflexes Sent. cg3 05:46 Patient admitted, IV remains in place. ha1 Administered Medications: 03:00 Drug: NS 0.9% IV 1000 ml Route: IV; Rate: 125 ml/hr; Site: left antecubital; ha1 05:16 Follow up: IV Status: Infusion continued upon admission pf1 03:50 Drug: MethylPrednisoLONE IVP 125 mg Route: IVP; Site: left antecubital; pf1 04:50 Follow up: Response: No adverse reaction; Marked relief of symptoms pf1 04:00 Drug: Famotidine IVP 20 mg Route: IVP; Site: left antecubital; ha1 05:00 Follow up: Response: No adverse reaction; Marked relief of symptoms pf1 04:05 Drug: Levalbuterol Inhalation 2.5 mg Route: Inhalation; ha1 05:00 Follow up: Response: No adverse reaction; Marked relief of symptoms pf1 05:00 Drug: Acetaminophen PO 1000 mg Route: PO; pf1 05:17 Follow up: Response: No adverse reaction; Marked relief of symptoms pf1 05:00 Drug: Furosemide IVP 20 mg Route: IVP; Site: left antecubital; pf1 05:17 Follow up: Response: No adverse reaction; Marked relief of symptoms pf1 05:05 Not Given (Physician Discretion): Nitroglycerin Transdermal Ointment 2 % 1 inches pf1 Transdermal once Medication: 02:51 VIS not applicable for this client. vc1 Outcome: 03:48 Decision to Hospitalize by Provider. jose 05:45 Admitted to Med/surg accompanied by tech, via stretcher, room 232, with chart, Report ha1 called to ISRRAEL Fuller 05:45 Condition: stable 05:45 Discharge instructions given to patient, family, Instructed on the need for admit, Demonstrated understanding of instructions. 05:53 Patient left the ED. ha1 Signatures: Dispatcher [employer] EDMS Db Tobar MD MD cha Rivera, Mary mr Sarahy Franco RN RN vc1 Tara Aranda RN RN ha1 Cassie Romero RN RN pf1 Sherley Chakraborty cg3 Corrections: (The following items were deleted from the chart) 04:51 02:27 General: Appears uncomfortable, Behavior is calm, cooperative, ha1 ha1
--- NOTE | 2022-12-04 03:49 | EDPHYS ---
Physician Documentation [facility] Name: Wale Mistry Age: 87 yrs Sex: Male : 1935 Arrival Date: 12/04/2022 Time: 02:14 Bed 6 Private MD: Mary Ann Aponte ED Physician Db Tobar HPI: 12/04 03:42 This 87 yrs old Male presents to ER via Ambulatory with complaints of High jose Blood Pressure, Dizziness, Feet Swelling. 03:42 The patient has elevated blood pressure and discovered this at home. Onset: The jose symptoms/episode began/occurred 3 day(s) ago. Modifying factors: The symptoms are aggravated by activity, The symptoms are alleviated by remaining still. Associated signs and symptoms: Pertinent positives: dizziness, lightheadedness, weakness. Severity of symptoms: At its worst the blood pressure was moderate, in the emergency department the blood pressure is unchanged. The patient has not experienced similar symptoms in the past. Historical: - Allergies: 02:45 No Known Allergies; vc1 - Home Meds: 02:49 finasteride 5 mg oral tablet daily [Active]; folic acid 1 mg Oral tablet daily vc1 [Active]; aspirin 81 mg Oral tablet,chewable daily [Active]; Plavix 75 mg Oral tablet daily [Active]; metoprolol tartrate 25 mg Oral tablet 2 times per day [Active]; pantoprazole 40 mg oral granules delayed release for susp packet every morning [Active]; Flomax 0.4 mg Oral capsule daily [Active]; losartan 100 mg oral tablet daily [Active]; - PMHx: 02:45 Atrial Fib; Hypertension; vc1 - PSHx: 02:45 heart stent; left leg stents; vc1 - Immunization history:: Client reports receiving the 2nd dose of the Covid vaccine, plus one booster; Moderna. - Social history:: Smoking status: Patient reports the use of cigarette tobacco products, smokes one pack cigarettes per day. ROS: 03:43 Constitutional: Negative for fever, chills, and weight loss, Eyes: Negative for injury, jose pain, redness, and discharge, ENT: Negative for injury, pain, and discharge, Neck: Negative for injury, pain, and swelling, Cardiovascular: Negative for chest pain, palpitations, and edema, Abdomen/GI: Negative for abdominal pain, nausea, vomiting, diarrhea, and constipation, Back: Negative for injury and pain, : Negative for injury, bleeding, discharge, and swelling, MS/Extremity: Negative for injury and deformity, Skin: Negative for injury, rash, and discoloration, Neuro: Negative for headache, weakness, numbness, tingling, and seizure, Psych: Negative for depression, anxiety, suicide ideation, homicidal ideation, and hallucinations, Allergy/Immunology: Negative for hives, rash, and allergies, Endocrine: Negative for neck swelling, polydipsia, polyuria, polyphagia, and marked weight changes. 03:43 Respiratory: Positive for cough, shortness of breath, on exertion. Exam: 03:43 Constitutional: This is a well developed, well nourished patient who is awake, alert, jose and in no acute distress. Head/Face: Normocephalic, atraumatic. Eyes: Pupils equal round and reactive to light, extra-ocular motions intact. Lids and lashes normal. Conjunctiva and sclera are non-icteric and not injected. Cornea within normal limits. Periorbital areas with no swelling, redness, or edema. ENT: Nares patent. No nasal discharge, no septal abnormalities noted. Tympanic membranes are normal and external auditory canals are clear. Oropharynx with no redness, swelling, or masses, exudates, or evidence of obstruction, uvula midline. Mucous membranes moist. Neck: Trachea midline, no thyromegaly or masses palpated, and no cervical lymphadenopathy. Supple, full range of motion without nuchal rigidity, or vertebral point tenderness. No Meningismus. Chest/axilla: Normal chest wall appearance and motion. Nontender with no deformity. No lesions are appreciated. Cardiovascular: Regular rate and rhythm with a normal S1 and S2. No gallops, murmurs, or rubs. Normal PMI, no JVD. No pulse deficits. Abdomen/GI: Soft, non-tender, with normal bowel sounds. No distension or tympany. No guarding or rebound. No evidence of tenderness throughout. Back: No spinal tenderness. No costovertebral tenderness. Full range of motion. Male : Normal genitalia with no discharge or lesions. Skin: Warm, dry with normal turgor. Normal color with no rashes, no lesions, and no evidence of cellulitis. 03:43 ECG was reviewed by the Attending Physician. 03:43 Respiratory: the patient does not display signs of respiratory distress, Respirations: normal, Breath sounds: bronchial sounds, that are mild, are scattered, decreased breath sounds, that are mild, are scattered, rhonchi, are not appreciated, stridor, is not appreciated, + upper airway congestion. Vital Signs: 02:43 BP 131 / 99; Pulse 74; Resp 24; Temp 97.6; Pulse Ox 93% ; Pain 10/10; vc1 02:45 BP 120 / 92; Pulse 66; Resp 20 S; Pulse Ox 97% on R/A; ha1 03:47 BP 150 / 113; Pulse 70; Resp 20 S; Pulse Ox 97% on R/A; ha1 04:34 BP 138 / 94; Pulse 81; Resp 20; Pulse Ox 100% on R/A; pf1 05:02 BP 127 / 61; Pulse 86; Resp 22; Pulse Ox 96% on R/A; Pain 0/10; pf1 05:31 Weight 79.38 kg; ha1 02:43 Pain Scale: Adult vc1 05:02 Pain Scale: Adult pf1 MDM: 02:34 Patient medically screened. jose 03:49 Antibiotic administration: Not indicated, the patient does not have an appreciated jose infiltrate. Differential diagnosis: Anemia Anxiety Reaction asthma, Bronchitis CHF exacerbation, Chronic Obstructive Pulmonary Disease hypertensive crisis, Malignant HTN, Myocardial Infarction pulmonary edema, reactive airway disease. Immunization status: Pneumococcal vaccine: within last 5 years. Influenza vaccine: within last 5 years. Data reviewed: vital signs, nurses notes, lab test result(s), EKG, radiologic studies, plain films. Consideration of Admission/Observation Patient was admitted/placed on observation. Escalation of care including admission/observation considered. I considered the following discharge prescriptions or medication management in the emergency department Medications were administered in the Emergency Department. See MAR. Independent interpretation of the following test(s) in the Emergency Department EKG: See my EKG interpretation above. Test considered but Not performed: CT: no ct chest. Historians other than the Patient: Family Member: daughter, son in law. 12/04 02:43 Order name: Basic Metabolic Panel; Complete Time: 04:15 jose 12/04 02:43 Order name: CBC with Diff; Complete Time: 03:55 jose 12/04 02:43 Order name: LFT's; Complete Time: 04:15 jose 12/04 02:43 Order name: Magnesium; Complete Time: 04:15 [facility] 12/04 02:43 Order name: NT PRO-BNP; Complete Time: 04:15 [facility] 12/04 02:43 Order name: PT-INR; Complete Time: 03:40 [facility] 12/04 02:43 Order name: Troponin HS; Complete Time: 04:15 [facility] 12/04 02:43 Order name: Lipase; Complete Time: 04:15 [facility] 12/04 02:43 Order name: Urinalysis w/ reflexes 12/04 03:41 Order name: Flu 12/04 03:41 Order name: SARS RAPID; Complete Time: 04:56 [facility] 12/04 02:43 Order name: XRAY Chest (1 view) 12/04 02:43 Order name: EKG; Complete Time: 02:44 [facility] 12/04 02:43 Order name: Cardiac monitoring; Complete Time: 02:52 [facility] 12/04 02:43 Order name: EKG - Nurse/Tech; Complete Time: 02:52 [facility] 12/04 02:43 Order name: IV Saline Lock; Complete Time: 03:27 [facility] 12/04 02:43 Order name: Labs collected and sent; Complete Time: 03:27 [facility] 12/04 02:43 Order name: O2 Per Protocol; Complete Time: 03:27 [facility] 12/04 02:43 Order name: O2 Sat Monitoring; Complete Time: 03:27 [facility] 12/04 03:47 Order name: Blood Pressure Recheck; Complete Time: 03:56 [facility] EC:43 Rate is 67 beats/min. Rhythm is irregularly irregular. QRS [place] is Normal. [place] interval jose is normal. QRS interval is normal. QT interval is normal. No Q waves. T waves are Normal. No ST changes noted. Clinical impression: Atrial Fibrillation. Interpreted by me. Reviewed by me. Administered Medications: 03:00 Drug: NS 0.9% IV 1000 ml Route: IV; Rate: 125 ml/hr; Site: left antecubital; ha1 05:16 Follow up: IV Status: Infusion continued upon admission pf1 03:50 Drug: MethylPrednisoLONE IVP 125 mg Route: IVP; Site: left antecubital; pf1 04:50 Follow up: Response: No adverse reaction; Marked relief of symptoms pf1 04:00 Drug: Famotidine IVP 20 mg Route: IVP; Site: left antecubital; ha1 05:00 Follow up: Response: No adverse reaction; Marked relief of symptoms pf1 04:05 Drug: Levalbuterol Inhalation 2.5 mg Route: Inhalation; ha1 05:00 Follow up: Response: No adverse reaction; Marked relief of symptoms pf1 05:00 Drug: Acetaminophen PO 1000 mg Route: PO; pf1 05:17 Follow up: Response: No adverse reaction; Marked relief of symptoms pf1 05:00 Drug: Furosemide IVP 20 mg Route: IVP; Site: left antecubital; pf1 05:17 Follow up: Response: No adverse reaction; Marked relief of symptoms pf1 05:05 Not Given (Physician Discretion): Nitroglycerin Transdermal Ointment 2 % 1 inches pf1 Transdermal once Disposition Summary: 12/04/22 03:48 Hospitalization Ordered Hospitalization Status: Inpatient Admission jose Provider: Сергей Bradley cha Location: Telemetry/MedSurg (Inpatient) jose Condition: Fair jose Problem: new jose Symptoms: have improved jose Bed/Room Type: Standard jose Room Assignment: 232(12/04/22 05:00) cg Diagnosis - Dyspnea jose - Essential (primary) hypertension jose - COPD/ Chronic obstructive pulmonary disease with (acute) exacerbation jose - Persistent atrial fibrillation jose - Non ST elevation [place] jose Forms: - Medication Reconciliation Form jose - SBAR form jose - Leadership Thank You Letter jose Signatures: Dispatcher [employer] Db Cook MD MD cha Attema, Lee, FINANCE ANALYST-C FINANCE ANALYST-Cla1 Judie Muniz RN RN cg Sarahy Frnaco RN RN vc1 Tara Aranda RN RN ha1 Cassie Romero RN RN pf1 Corrections: (The following items were deleted from the chart) 05:00 03:48 jose cg
[2022-12-04 04:02] LABS: Albumin 3.2 g/dL (3.4-5.0); Bilirubin Direct 0.2 mg/dL (0-0.2); Bilirubin Indirect, Calculated 0.4 mg/dL (0.2-0.8); Bilirubin Total 0.6 mg/dL (0.2-1.0); Protein, Total 6.5 g/dL (6.4-8.2)
[2022-12-04 04:11] LABS: Troponin High Sensitivity 82.5 pg/mL (<58.9)
[2022-12-04] MEDS ORDERED: FAMOTIDINE 20 MG/2 ML VIAL IV ONE (04:14)
[2022-12-04] MEDS ORDERED: LEVALBUTEROL 1.25 MG/3 ML NEB ONE (04:14)
[2022-12-04] MEDS ORDERED: METHYLPREDNISOLONE 125 MG INJ ONE (04:29)
[2022-12-04 04:45] LABS: SARS-CoV-2 Antigen Rapid Res Negative (Negative)
[2022-12-04] MEDS ORDERED: ACETAMINOPHEN 500 MG TAB ONE ×2 (05:02→05:08)
[2022-12-04] MEDS ORDERED: FUROSEMIDE 20 MG/ 2ML VIAL ONE (05:02)
--- NOTE | 2022-12-04 05:09 | P.HP ---
Certification for Inpatient Patient admitted to: Inpatient With expected LOS: >2 Midnights Patient will require the following post-hospital care: None Practitioner: I am a practitioner with admitting privileges, knowledge of patient current condition, hospital course, and medical plan of care. Services: Services provided to patient in accordance with Admission requirements found in Title 42 Section 412.3 of the Code of Federal Regulations <Solitario Dan - Last Filed: 12/04/22 05:05> Patient History Date of Service: 12/04/22 Reason for admission: CHF, COPD History of Present Illness: 87-year-old male with history of atrial fibrillation, hypertension, hyperlipidemia, GERD, BPH, CAD, PAD presents emergency department with progressive dyspnea. He reports increasing shortness of breath over the course of last 2 weeks, worse in a reclined position. He was evaluated emergency department his labs were significant for high sensitive troponin 82.5, BNP 2876 EKG A-fib with right bundle branch block rate controlled. Patient with expiratory wheezing, pitting edema of the lower extremities suspect dyspnea secondary to CHF exacerbationunknown EF, COPD exacerbation. - Past Medical/Surgical History Diabetic: No -: chronic A.Fib -: hypertension -: PAD -: CAD -: Hyperlipidemia -: BPH -: hydrocelectomy -: Heart, leg stents Psychosocial/ Personal History: Patient lives at home with his family - Family History Family History: Reviewed- Non-Contributory - Social History Smoking Status: Current every day smoker Counseled patient to stop smoking for: less than 10 minutes Smoking therapy provided: No (Patient declined) Alcohol use: No CD- Drugs: No Caffeine use: Yes Place of Residence: Home <Solitario Dan - Last Filed: 12/04/22 05:05> Date of Service: 12/04/22 <Сергей Bradley - Last Filed: 12/04/22 12:46> Allergies No Known Allergies Allergy (Unverified 09/14/18 22:30) Home Medications: Amlodipine [Norvasc*] 1 tab PO DAILY 09/15/18 Codeine/APAP [Tylenol #3*] 1 tab PO Q6H 09/15/18 Furosemide [Lasix*] 1 tab PO DAILY 09/15/18 Losartan Potassium 1 tab PO DAILY 09/15/18 Mirabegron [Myrbetriq] 1 tab PO DAILY 09/15/18 Naproxen [Naprosyn] 1 tab PO BID 09/15/18 Rivaroxaban [Xarelto] 1 tab PO BEDTIME 09/15/18 Tamsulosin HCl [Flomax] 1 tab PO BEDTIME 09/15/18 Metoprolol Tartrate [Lopressor*] 25 mg PO BID 06/20/21 Albuterol Inhaler [Ventolin Inhaler*] 2 puff IH Q6H PRN #1 inhaler 12/04/22 Albuterol Neb [Proventil 0.083% Neb Soln] 2.5 mg NEB [id number] PRN #60 amp 12/04/22 Arformoterol Tartrate [Brovana] 15 mcg NEB BIDRESP #60 vial.neb 12/04/22 Benzonatate [Tessalon Perle*] 100 mg PO TID PRN #20 cap 12/04/22 Clopidogrel Bisulfate [Plavix*] 75 mg PO DAILY #30 tab 12/04/22 Finasteride [Proscar*] 5 mg PO BEDTIME #30 tab 12/04/22 Furosemide [Lasix*] 20 mg PO DAILY #30 tab 12/04/22 Ipratropium Neb [Atrovent*] 0.5 mg NEB [id number] PRN #60 amp 12/04/22 Losartan Potassium [Cozaar*] 100 mg PO DAILY #30 tab 12/04/22 Metoprolol Tartrate [Lopressor*] 25 mg PO [id number] #30 tab 12/04/22 Pantoprazole [Protonix Tab*] 40 mg PO DAILYAC #30 tab 12/04/22 Spironolactone [Aldactone] 25 mg PO DAILY #30 tab 12/04/22 predniSONE [Deltasone*] 10 mg PO BID #14 tab 12/04/22 Review of Systems 10-point ROS is otherwise unremarkable General: Chills Respiratory: Cough, Shortness of Breath, SOB with Excertion, Wheezing <Solitario Dan - Last Filed: 12/04/22 05:05> Physical Examination - Physical Exam General: Alert, In no apparent distress, Oriented x3 HEENT: Atraumatic, PERRLA, Mucous membr. moist/pink, EOMI, Sclerae nonicteric Neck: Supple, 2+ carotid pulse no bruit, No LAD, Without JVD or thyroid abnormality Respiratory: Clear to auscultation bilaterally, Normal air movement Cardiovascular: Edema (2+ pitting edema lower extremities bilaterally), Irregular heart rate/rhythm (A-fib rate controlled) Capillary refill: <2 Seconds Gastrointestinal: Normal bowel sounds, No tenderness Musculoskeletal: No tenderness Integumentary: No rashes Neurological: Normal speech, Normal strength at 5/5 x4 extr, Normal tone, Normal affect - Studies Laboratory Data (last 24 hrs) 12/04/22 12/04/22 12/04/22 03:12 03:12 03:12 WBC 8.60 Hgb 15.6 Hct 46.3 Plt Count 149 L PT 12.8 H INR 1.16 Sodium 140 Potassium 4.0 BUN 16 Creatinine 0.96 Glucose 107 H Magnesium 2.0 Total Bilirubin 0.6 AST 17 ALT 21 Alkaline Phosphatase 88 Lipase 30 <Solitario Dan - Last Filed: 12/04/22 05:05> - Studies Laboratory Data (last 24 hrs) 12/04/22 12/04/22 12/04/22 03:12 03:12 03:12 WBC 8.60 Hgb 15.6 Hct 46.3 Plt Count 149 L PT 12.8 H INR 1.16 Sodium 140 Potassium 4.0 BUN 16 Creatinine 0.96 Glucose 107 H Magnesium 2.0 Total Bilirubin 0.6 AST 17 ALT 21 Alkaline Phosphatase 88 Lipase 30 Microbiology Data (last 24 hrs): 12/04/22 03:55 Nasopharnyx Influenza Type A Antigen Screen - Final 12/04/22 03:55 Nasopharnyx Influenza Type B Antigen Screen - Final <Сергей Bradley - Last Filed: 12/04/22 12:46> Assessment and Plan - Plan Assessment: Dyspnea secondary to suspected CHF-unknown EF/suspected COPD with exacerbation Elevated troponin likely secondary to above Hypertension Hyperlipidemia BPH Plan: Dyspnea secondary to suspected CHF-unknown EF/suspected COPD with exacerbation Elevated troponin likely secondary to above Trend troponins, monitor on telemetry, echocardiogram ordered. Cardiology and pulmonology consult ordered. Continue gentle diuresis patient does not take a diuretic at home continue Lasix IV 20 mg twice daily. Patient also with expiratory wheezing continue prednisone, ICS, as needed nebulizer treatments. Hypertension Hyperlipidemia BPH Home medications continued. DVT PPX: Lovenox Code status: Full Discharge Plan: Home Plan to discharge in: Greater than 2 days - Advance Directives Does patient have a Living Will: Yes Does patient have a Durable POA for Healthcare: Yes - Code Status/Comfort Care Code Status Assessed: Yes (Full code) Critical Care: No Time Spent Managing Pts Care (In Minutes): 70 <Solitario Dan - Last Filed: 12/04/22 05:05> Date of Service: 12/04/22 Agree with plan of care as mentioned above. Patient was seen and examined. Patient will be discharging later today. <Сергей Bradley - Last Filed: 12/04/22 12:46>
[2022-12-04] MEDS ORDERED: ONDANSETRON 4 MG/2 ML VIAL IV PRN (05:34)
[2022-12-04] MEDS ORDERED: IPRATROPIUM BROM 0.5MG/2.5ML NEB PRN (05:34)
[2022-12-04] MEDS ORDERED: ALBUTEROL 2.5 MG/3 ML NEB SOL NEB PRN (05:34)
[2022-12-04] MEDS ORDERED: BENZONATATE 100 MG CAP PO PRN (05:34)
[2022-12-04 05:44] LABS: Specific Gravity 1.016 (1.005-1.030); Urine Bacteria None Seen /HPF (<20); Urine Bilirubin NEGATIVE (Negative); Urine Blood Negative (Negative); Urine Clarity Clear (Clear); Urine Color Light-Yellow (Yellow); Urine Glucose NEGATIVE (Negative); Urine Mucus Slight /HPF (None Seen); Urine Protein 1+ (Negative); Urine RBC None Seen /HPF (None Seen); Urine Urobilinogen Normal (Normal); Urine pH 5.5 (5.0-7.0)
[2022-12-04] MEDS ORDERED: METOPROLOL TAR 25 MG TAB PO SCH (06:00)
[2022-12-04 06:09] VITALS: BMI 25.7
[2022-12-04] MEDS ORDERED: PANTOPRAZOLE 40MG TABLET PO SCH (06:30)
[2022-12-04] MEDS ORDERED: ENOXAPARIN 40 MG/0.4 ML SQ SCH (09:00)
[2022-12-04] MEDS ORDERED: ASPIRIN EC 81 MG TAB PO SCH (09:00)
[2022-12-04] MEDS ORDERED: FUROSEMIDE 20 MG/ 2ML VIAL IV SCH (09:00)
[2022-12-04] MEDS: DULERA 200/5 (MOMETASONE/FORMOTEROL) INHALER IH SCH ×2 (09:00→09:49)
[2022-12-04] MEDS ORDERED: CLOPIDOGREL 75 MG TABLET PO SCH (09:00)
[2022-12-04] MEDS ORDERED: LOSARTAN POTASSIUM 50 MG TABLET PO SCH (09:00)
[2022-12-04] MEDS ORDERED: predniSONE 20 MG TAB PO SCH (09:00)
[2022-12-04 09:05] LABS: Thyroid Stimulating Hormone 0.907 uIU/mL (0.358-3.740); Troponin High Sensitivity 57.4 pg/mL (<58.9)
[2022-12-04 09:14] VITALS: TEMP 97
[2022-12-04 11:48] VITALS: O2SAT 98
--- NOTE | 2022-12-04 11:57 | P.CNS ---
Date of Consult: 12/04/22 Reason for Consult: COPD exacerbation Chief Complaint: CHF, COPD History of Present Illness: Patient is 87 years of age a poor historian he appears to be very agitated multiple medical problems. With worsening dyspnea the past 2 weeks patient is a heavy smoker follow-up with any primary care doctors some lower extremity edema with wheezing Allergies No Known Allergies Allergy (Unverified 09/14/18 22:30) Home Medications: Amlodipine [Norvasc*] 1 tab PO DAILY 09/15/18 Codeine/APAP [Tylenol #3*] 1 tab PO Q6H 09/15/18 Furosemide [Lasix*] 1 tab PO DAILY 09/15/18 Losartan Potassium 1 tab PO DAILY 09/15/18 Mirabegron [Myrbetriq] 1 tab PO DAILY 09/15/18 Naproxen [Naprosyn] 1 tab PO BID 09/15/18 Rivaroxaban [Xarelto] 1 tab PO BEDTIME 09/15/18 Tamsulosin HCl [Flomax] 1 tab PO BEDTIME 09/15/18 Metoprolol Tartrate [Lopressor*] 25 mg PO BID 06/20/21 - Past Medical/Surgical History Diabetic: No -: chronic A.Fib -: hypertension -: PAD -: CAD -: Hyperlipidemia -: BPH -: hydrocelectomy -: Heart, leg stents Psychosocial/ Personal History: Patient lives at home with his family - Family History Father Medical History: Hypertension, Diabetes, Stroke Mother Medical History: Hypertension, Stroke - Social History Smoking Status: Current every day smoker Alcohol use: Yes CD- Drugs: No Caffeine use: Yes Place of Residence: Home Review of Systems is unable to be obtained Respiratory: SOB with Excertion Cardiovascular: Edema Physical Examination Temp Pulse Resp BP Pulse Ox 97.0 F 50 16 131/84 98 12/04/22 08:00 12/04/22 08:35 12/04/22 08:00 12/04/22 08:35 12/04/22 08:00 General: Alert, Oriented x1, Mild distress Respiratory: Clear to auscultation bilaterally, Diminished Cardiovascular: No edema, Regular rate/rhythm, Normal S1 S2 Gastrointestinal: Normal bowel sounds, Soft and benign Musculoskeletal: No clubbing, No contractures Integumentary: No rashes Laboratory Data (last 24 hrs) 12/04/22 12/04/2212/04/23 03:12 03:12 03:12 WBC 8.60 Hgb 15.6 Hct 46.3 Plt Count 149 L PT 12.8 H INR 1.16 Sodium 140 Potassium 4.0 BUN 16 Creatinine 0.96 Glucose 107 H Magnesium 2.0 Total Bilirubin 0.6 AST 17 ALT 21 Alkaline Phosphatase 88 Lipase 30 - Problems (1) COPD exacerbation Current Visit: Yes Status: Acute Plan: Patient is 87 years of age admitted with blood pressure dizziness swelling of the feet very poor historian very agitated on exam mildly elevated and is also heavy smoker presumed underlying COPD does not take any bronchodilators All signs are all stable count is normal no evidence of an infection chest x-ray shows cardiomegaly most likely has demand hypoxemia treated with bronch odilators we will for discharge home on low-dose prednisone 10 mg twice a day for a week consider Advair follow-up with me in 2 weeks patient's BNP is also elevated commend an echocardiogram cardiomegaly on the chest x-ray need an outpatient pulmonary function testing suspect that he has underlying diastolic dysfunction patient takes Lasix at home add nebulized bronchodilator Jover to spironolactone use Lasix as needed
[2022-12-04] MEDS ORDERED: ARFORMOTEROL TARTRATE 15 MCG/2 ML VIAL.NEB NEB SCH (12:04)
[2022-12-04] MEDS ORDERED: SPIRONOLACTONE 25 MG TABLET PO SCH (12:08)
--- NOTE | 2022-12-04 12:45 | P.DS ---
Discharge Date: 12/04/22 Disposition: ROUTINE DISCHARGE Discharge Condition: GOOD Reason for Admission: CHF, COPD Consultations: Cardiology Pulmonary Brief History of Present Illness: Patient is an 87-year-old male with history of atrial fibrillation, hypertension, hyperlipidemia, GERD, BPH, CAD, PAD presents emergency department with progressive dyspnea. He reports increasing shortness of breath over the course of last 2 weeks, worse in a reclined position. He was evaluated emergency department his labs were significant for high sensitive troponin 82.5, BNP 2876 EKG A-fib with right bundle branch block rate controlled. Patient with expiratory wheezing, pitting edema of the lower extremities suspect dyspnea secondary to CHF exacerbationunknown EF, COPD exacerbation. Hospital Course: Patient is in the room with his daughter and he is refusing to have any further testing. He does want to be in the hospital any longer so at this time we will go ahead and discharge him home. He will be able to follow-up as an outpatient. Seen by pulmonary and cardiology. Agreeable for discharge on prednisone 10 mg twice a day for 1 week along with albuterol inhaler therapy. We will add Aldactone to his Lasix. He will need to get an outpatient echocardiogram with cardiology. He does not want to stay in the hospital and get it done here in the morning. His daughter is at bedside and she is agreeable to take him home. She says he he will be fine at home as she will watch over him. He normally takes care of himself daily but was worried that he may not be able to. She feels differently and she states that she will stay with him for the time being until he is better. At this time, patient has discharge arrangements completed and we will discharge him home. I will leave them on number to have a change of opinion and want him seen in the hospital I will readmit him to our facility and work him up further. Otherwise, he can get outpatient work-up with cardiology and pulmonary going forward. Vital Signs/Physical Exam: Temp Pulse Resp BP Pulse Ox 97.0 F 50 16 131/84 98 12/04/22 08:00 12/04/22 08:35 12/04/22 08:00 12/04/22 08:35 12/04/22 08:00 General: Alert, In no apparent distress, Oriented x3 Laboratory Data at Discharge: WBC 8.60 thou/uL (4.3-10.9) 12/04/22 03:12 Hgb 15.6 g/dL (13.6-17.9) 12/04/22 03:12 Hct 46.3 % (39.6-49.0) 12/04/22 03:12 Plt Count 149 thou/uL (152-406) L 12/04/22 03:12 PT 12.8 SECONDS (9.5-12.5) H 12/04/22 03:12 INR 1.16 12/04/22 03:12 Sodium 140 mEq/L (136-145) 12/04/22 03:12 Potassium 4.0 mEq/L (3.5-5.1) 12/04/22 03:12 BUN 16 mg/dL (7-18) 12/04/22 03:12 Creatinine 0.96 mg/dL (0.70-1.30) 12/04/22 03:12 Glucose 107 mg/dL (74-106) H 12/04/22 03:12 Magnesium 2.0 mg/dL (1.6-2.4) 12/04/22 03:12 Total Bilirubin 0.6 mg/dL (0.2-1.0) 12/04/22 03:12 AST 17 U/L (15-37) 12/04/22 03:12 ALT 21 U/L (16-61) 12/04/22 03:12 Alkaline Phosphatase 88 U/L (45-117) 12/04/22 03:12 Lipase 30 U/L (13-75) 12/04/22 03:12 Home Medications: Amlodipine [Norvasc*] 1 tab PO DAILY 09/15/18 Codeine/APAP [Tylenol #3*] 1 tab PO Q6H 09/15/18 Furosemide [Lasix*] 1 tab PO DAILY 09/15/18 Losartan Potassium 1 tab PO DAILY 09/15/18 Mirabegron [Myrbetriq] 1 tab PO DAILY 09/15/18 Naproxen [Naprosyn] 1 tab PO BID 09/15/18 Rivaroxaban [Xarelto] 1 tab PO BEDTIME 09/15/18 Tamsulosin HCl [Flomax] 1 tab PO BEDTIME 09/15/18 Metoprolol Tartrate [Lopressor*] 25 mg PO BID 06/20/21 Albuterol Inhaler [Ventolin Inhaler*] 2 puff IH Q6H PRN #1 inhaler 12/04/22 Albuterol Neb [Proventil 0.083% Neb Soln] 2.5 mg NEB [id number] PRN #60 amp 12/04/22 Arformoterol Tartrate [Brovana] 15 mcg NEB BIDRESP #60 vial.neb 12/04/22 Benzonatate [Tessalon Perle*] 100 mg PO TID PRN #20 cap 12/04/22 Clopidogrel Bisulfate [Plavix*] 75 mg PO DAILY #30 tab 12/04/22 Finasteride [Proscar*] 5 mg PO BEDTIME #30 tab 12/04/22 Furosemide [Lasix*] 20 mg PO DAILY #30 tab 12/04/22 Ipratropium Neb [Atrovent*] 0.5 mg NEB [id number] PRN #60 amp 12/04/22 Losartan Potassium [Cozaar*] 100 mg PO DAILY #30 tab 12/04/22 Metoprolol Tartrate [Lopressor*] 25 mg PO [id number] #30 tab 12/04/22 Pantoprazole [Protonix Tab*] 40 mg PO DAILYAC #30 tab 12/04/22 Spironolactone [Aldactone] 25 mg PO DAILY #30 tab 12/04/22 predniSONE [Deltasone*] 10 mg PO BID #14 tab 12/04/22 New Medications: Spironolactone [Aldactone] 25 mg PO DAILY #30 tab Ipratropium Neb [Atrovent*] 0.5 mg NEB [id number] PRN #60 amp PRN Reason: Wheezing Arformoterol Tartrate [Brovana] 15 mcg NEB BIDRESP #60 vial.neb Losartan Potassium [Cozaar*] 100 mg PO DAILY #30 tab predniSONE [Deltasone*] 10 mg PO BID #14 tab Furosemide [Lasix*] 20 mg PO DAILY #30 tab Metoprolol Tartrate [Lopressor*] 25 mg PO [id number] #30 tab Clopidogrel Bisulfate [Plavix*] 75 mg PO DAILY #30 tab Finasteride [Proscar*] 5 mg PO BEDTIME #30 tab Pantoprazole [Protonix Tab*] 40 mg PO DAILYAC #30 tab Albuterol Neb [Proventil 0.083% Neb Soln] 2.5 mg NEB [id number] PRN #60 amp PRN Reason: Wheezing Benzonatate [Tessalon Perle*] 100 mg PO TID PRN #20 cap PRN Reason: Cough Albuterol Inhaler [Ventolin Inhaler*] 2 puff IH Q6H PRN #1 inhaler PRN Reason: Shortness Of Breath Physician Discharge Instructions: -DC IV and DC home -Follow-up with PCP in 1 to 2 weeks -Follow-up with Cardiology in 1 to 2 weeks -Follow-up with pulmonary in 1 to 2 weeks -Please call Dr. Bradley at [phone] if any questions regarding hospital stay -Please call nursing station at [phone] if any nursing or medication questions -Return to the emergency room if symptoms worsen Diet: AHA Activity: Fall precautions Followup: Mary Ann Aponte DO [Primary Care Provider] - Time spent managing pt's care (in minutes): 35
[2022-12-04 12:46] VITALS: BP 109/72
--- NOTE | 2022-12-04 13:19 | RAD REPORT ---
EXAM DESCRIPTION: RAD - Chest Single View - 12/04/2022 3:20 am COMPARISON: None. CLINICAL HISTORY: [facility] MAIN COUGH FINDINGS: A single AP view of the chest demonstrates a normal cardiomediastinal silhouette. No pneumothorax or pleural effusion. No consolidation or pulmonary edema. Osseous structures are intact. IMPRESSION: No acute chest process. Electronically signed by: Ron Nelson MD 12/04/2022 5:04 AM CDT Due to temporary technical issues with the PACS/Fluency reporting system, reports are being signed by the in house radiologists without review as a courtesy to insure prompt reporting. The interpreting radiologist is fully responsible for the content of the report.
--- NOTE | 2022-12-04 16:16 | CON ---
Date of Consultation: 12/04/2022 Reason For Consultation: Questionable CHF. History Of Present Illness: An 87-year-old male, history of dyslipidemia, hypertension, atrial fibri llation, coronary artery disease, acid reflux, peripheral vascular disease and dementia, presented wi th progressive shortness of breath. No edema of lower extremity, no orthopnea, and the patient has s ignificant COPD with active smoking history. Past Medical History: As outlined above in the HPI. Medications: Refer to reconciliation sheet for detailed list. Allergies: NO KNOWN DRUG ALLERGIES. Family History: No premature coronary artery disease or cancer. Social History: He is an active smoker. Does not use any drugs and does not drink alcohol on a regu lar basis. Review of Systems: All systems reviewed and they were negative except what mentioned in HPI. Physical Examination: Vital Signs: Reviewed. Head and Neck: Pupils are equal, reactive to light. Intact eye movements. No JVD. No cervical lym phadenopathy. Neck is supple. Thyroid is not enlarged. Lungs: Clear to auscultation with decreased breathing sounds. No accessory muscle use or muscle ret raction. Heart: Irregular. No extra sounds. Abdomen: Soft, nontender. Bowel sounds positive. No organomegaly. No masses or hernia. No rigidi ty or rebound. Extremities: No edema, clubbing, or cyanosis. Intact pulses. Skin: No rash. Neurologic: Alert, awake, oriented x3. No acute focal deficits appreciated. Lymph Nodes: No cervical or axillary lymphadenopathy. Investigations: BUN is 16, creatinine 0.96. Troponin 82, then 57. NT-proBNP is 2876, and hemoglobi n is 15.6. Assessment And Recommendations: 1.Shortness of breath, likely due to chronic obstructive pulmonary disease exacerbation. The patien t does have chronic congestive heart failure component, but he does not appear to be fluid overloaded and does not need IV diuresis for sure. I recommend obtaining an echo to further evaluate the heart function and get more information about his cardiac history. 2.History of coronary artery disease. First troponin was borderline elevated and the second was neg ative and the patient has no chest pain. A stress test is reasonable for this gentleman, which can b e done as an outpatient as well. 3.Hypertension. Blood pressure is controlled. 4.Chronic obstructive pulmonary disease exacerbation, active smoker. He was counseled to quit smoki ng. Thank you for the consult. /MIAN Voice ID: [id number] Report ID: [id number]
[2022-12-04] MEDS ORDERED: FINASTERIDE 5 MG TAB PO SCH (21:00)
[2022-12-05] MEDS ORDERED: FUROSEMIDE 40 MG TABLET PO SCH (09:00)
--- NOTE | 2022-12-05 16:48 | EKG ---
Test Date: 2022-12-04 Test Time: 02:48:48 Wheel Setter: GUY MEASUREMENT RESULTS: Intervals: Rate: 67 GA: QRSD: 150 QT: 408 QTc: 431 [place]: P: GA: QRS: -24 T: 266 INTERPRETIVE STATEMENTS: Atrial fibrillation Right bundle branch block Inferior infarct, age undetermined Abnormal ECG Compared to ECG 12/04/2022 02:47:31 No significant changes Electronically Signed On 12-05-22 16:44:34 CDT by Kyle Davies
--- NOTE | 2022-12-05 16:49 | EKG ---
Test Date: 2022-12-04 Test Time: 02:47:31 Entry Level Software Developer: GUY MEASUREMENT RESULTS: Intervals: Rate: 81 IL: QRSD: 150 QT: 426 QTc: 494 [place]: P: IL: QRS: -23 T: 181 INTERPRETIVE STATEMENTS: Atrial fibrillation Right bundle branch block Inferior infarct, age undetermined Abnormal ECG Compared to ECG 07/01/2021 16:59:49 Myocardial infarct finding now present Left-axis deviation no longer present Electronically Signed On 12-05-22 16:44:37 CDT by Kyle Davies
== END 2022-12-04 14:12 | disposition home or self-care (01) ==
LOC: ER 02:14 → INTOOBSV 04:53 → ERHOLD 04:53 → 2ND 05:14
PROVIDERS: ADMIT Hospitalist; ATTEND Hospitalist
DX: J44.1 Chronic obstructive pulmonary disease with (acute) exacerbation (principal); I10 Essential (primary) hypertension; I48.11 Longstanding persistent atrial fibrillation; I25.10 Atherosclerotic heart disease of native coronary artery without angina pectoris; I73.9 Peripheral vascular disease, unspecified; E78.5 Hyperlipidemia, unspecified; K21.9 Gastro-esophageal reflux disease without esophagitis; N40.0 Benign prostatic hyperplasia without lower urinary tract symptoms; R77.8 Other specified abnormalities of plasma proteins; F17.210 Nicotine dependence, cigarettes, uncomplicated; R09.02 Hypoxemia; R60.9 Edema, unspecified; Z79.01 Long term (current) use of anticoagulants; Z95.5 Presence of coronary angioplasty implant and graft; Z20.822 Contact with and (suspected) exposure to COVID-19
CPT/HCPCS: 85025; 81001; 80048; 36415; 83735; 85610; 80076; 84443; 84484 ×2; 84439; 83690; 83880; 87804 ×2; 71045; 87811; J7512; J3535; J1940 ×2; J7614; J1650; J2930; J7030; 93005; G0378; J7605

== ENCOUNTER 2024-06-01 17:02 | Inpatient (IN) | payer OTHER ==
[2024-06-01 18:01] LABS: Absolute Basophils 0.1 K/uL (0-0.5); Absolute Eosinophils 0.1 K/uL (0-0.5); Absolute Lymphocytes (CBC) 1.2 K/uL (0.7-4.9); Absolute Monocytes 0.7 K/uL (0.1-1.3); Absolute Neutrophil 7.4 K/uL (1.8-8.0); Basophils % 0.6 % (0-1.3); Eosinophils % 0.8 % (0-4.4); Hemoglobin 14.8 g/dL (13.6-17.9); MCH 32.2 pg (27.0-35.0); MCHC 34.4 g/dL (32.0-36.0); MCV 93.6 fL (80-100); MPV 8.9 fL (7.6-11.3); Monocytes % 7.5 % (3.3-12.3); Neutrophils % 78.1 % (41.7-73.7); Nucleated Red Blood Cells % 0.1 % (0-0); Platelets 131 thou/uL (152-406); Red Cell Distribution Width 14.5 % (12.1-15.2)
[2024-06-01] MEDS ORDERED: NA CHLORIDE 0.9% 1,000 ML ONE (18:02)
[2024-06-01 18:22] LABS: Albumin 3.2 g/dL (3.4-5.0); Albumin/Globulin Ratio 0.9 (1.1-1.8); Anion Gap 10.1 mEq/L (5.0-15.0); Bilirubin Direct 0.3 mg/dL (0-0.2); Bilirubin Indirect, Calculated 0.8 mg/dL (0.2-0.8); Bilirubin Total 1.1 mg/dL (0.2-1.0); Globulin 3.6 g/dL (2.3-3.5); Magnesium 2.3 mg/dL (1.6-2.4); Potassium 4.1 mEq/L (3.5-5.1); Protein, Total 6.8 g/dL (6.4-8.2)
--- NOTE | 2024-06-01 18:23 | RAD REPORT ---
EXAMINATION: ONE VIEW CHEST XR CLINICAL INDICATION: weakness TECHNIQUE: Frontal chest projection is submitted. Examination is limited by patient positioning and t echnique. COMPARISON: No prior exam. FINDINGS: Mild interstitial pulmonary edema. The heart is moderately enlarged. No displaced fractures identifie d. IMPRESSION: Mild CHF pattern.
[2024-06-01 19:16] LABS: Specific Gravity 1.019 (1.005-1.030); Sqamous Epithelial None Seen /HPF (None Seen); Urine Bacteria None Seen /HPF (<20); Urine Bilirubin NEGATIVE (Negative); Urine Blood Negative (Negative); Urine Clarity Clear (Clear); Urine Color Yellow (Yellow); Urine Culture Reflex Order NOT NEEDED; Urine Glucose NEGATIVE (Negative); Urine Ketones NEGATIVE (Negative); Urine Micro Reflex YN NO BILL MICROSCOPIC; Urine Mucus Slight /HPF (None Seen); Urine Nitrite NEGATIVE (Negative); Urine Protein TRACE (Negative); Urine RBC <5 /HPF (None Seen); Urine Urobilinogen Normal (Normal); Urine Yeast (Budding) Trace /HPF (None Seen); Urine pH 5.5 (5.0-7.0)
--- NOTE | 2024-06-01 19:24 | RAD REPORT ---
EXAM: CT brain without contrast HISTORY: ams COMPARISON: 07/01/2021 TECHNIQUE: Multiple contiguous axial images were obtained and a CT of the brain without contrast. Sag ittal and coronal reformats were performed. One or more of the following dose reduction techniques were used: Automated exposure control, adjust ment of the mA and/or kV according to patient size, and/or iterative reconstruction. FINDINGS: No evidence of hydrocephalus, intracranial hemorrhage, or extra-axial fluid collection. Moderate brain atrophy with moderate periventricular and deep white matter chronic microvascular isc hemic changes present. No evidence of midline shift or areas of brain edema. The calvarium is intact. The visualized paranasal sinuses and mastoid air cells are essentially clear . IMPRESSION: No evidence of acute intracranial abnormality.
--- NOTE | 2024-06-01 19:39 | EDPHYS ---
Physician Documentation [facility] Name: Wale Mistry Age: 88 yrs Sex: Male : 1935 Arrival Date: 06/01/2024 Time: 17:02 Bed 3 Private MD: ED Physician Garett Douglas HPI: 06/01 17:58 This 88 yrs old Male presents to ER via EMS with complaints of General Weakness. rt 17:58 History limited due to patient with advanced dementia. Patient reportedly has had rt progressively worsening confusion, generalized weakness over the past several days. Is usually able to ambulate with a walker, now has difficulty in doing so. Patient is unable to provide further history, daughters report no other acute symptoms, symptoms are moderate in severity, no other aggravating or alleviating factors.. Historical: - PMHx: 17:14 Atrial Fib; Hypertension; Dementia; le1 - PSHx: 17:14 heart stent; left leg stents; le1 - Immunization history:: Adult Immunizations up to date. - Infectious Disease History:: Denies. - Social history:: Smoking status: Patient reports the use of cigarette tobacco products, unknown amount. - Family history:: not pertinent. ROS: 17:58 Unable to obtain ROS due to baseline dementia, rt Exam: 17:58 Constitutional: This is a well developed, well nourished patient who is awake, alert, rt and in no acute distress. Head/Face: Normocephalic, atraumatic. Chest/axilla: Normal chest wall appearance and motion. Nontender with no deformity. No lesions are appreciated. Cardiovascular: Regular rate and rhythm with a normal S1 and S2. No gallops, murmurs, or rubs. Normal PMI, no JVD. No pulse deficits. Respiratory: Lungs have equal breath sounds bilaterally, clear to auscultation and percussion. No rales, rhonchi or wheezes noted. No increased work of breathing, no retractions or nasal flaring. Abdomen/GI: Soft, non-tender, with normal bowel sounds. No distension or tympany. No guarding or rebound. No evidence of tenderness throughout. 17:58 ENT: Dry mucous membrane. 17:58 ECG was reviewed by the Attending Physician. 17:58 Neuro: Mumbling speech, moves all 4 extremities equally, Vital Signs: 17:10 BP 89 / 68; Pulse 49; Resp 18; Temp 98.9(O); Pain 0/10; le1 17:33 Pulse Ox 100% on R/A; le1 18:41 BP 82 / 52; Pulse 47; Resp 21; Pulse Ox 98% on R/A; Pain 0/10; le1 21:40 BP 105 / 62; Pulse 60; Resp 17 S; Pulse Ox 97% on R/A; ha1 17:10 Pain Scale: Adult le1 18:41 Pain Scale: Adult le1 MDM: 17:16 Medical Screening Exam initiated rt 19:37 Data reviewed: vital signs, nurses notes, lab test result(s), radiologic studies. ED sp3 course: Patient signed out to me by daytime physician. Mr. Mistry is an 88-year-old male with history of atrial fibrillation, hypertension and dementia who presents with confusion, generalized weakness. He is found to have an acute kidney injury with creatinine of 2.0 on top of a baseline of 1.0. He also has hyaline casts in his urine with high specific gravity. No signs of UTI noted. Slow fluids been started patient will be admitted for further workup and reevaluation of hydration status. I believe GREGORIA is likely prerenal in nature.. 06/01 17:23 Order name: Basic Metabolic Panel; Complete Time: 18:44 rt 06/01 17:23 Order name: CBC with Diff; Complete Time: 18:44 rt 06/01 17:23 Order name: LFT's; Complete Time: 18:44 rt 06/01 17:23 Order name: Magnesium; Complete Time: 18:44 rt 06/01 17:23 Order name: Troponin HS; Complete Time: 18:44 rt 06/01 17:23 Order name: UAM; Complete Time: 19:28 rt 06/01 19:12 Order name: BNP sp3 06/01 20:20 Order name: Magnesium EDMS 06/01 20:20 Order name: Phosphorus EDMS 06/01 20:20 Order name: Protime (+INR) EDMS 06/01 20:20 Order name: PTT, Activated Partial Thromb EDMS 06/01 20:20 Order name: Urinalysis w/ reflexes EDMS 06/01 20:20 Order name: Basic Metabolic Panel EDMS 06/01 20:20 Order name: Basic Metabolic Panel EDMS 06/01 20:20 Order name: CBC with Automated Diff EDMS 06/01 20:20 Order name: CBC with Automated Diff EDMS 06/01 17:23 Order name: XRAY Chest (1 view); Complete Time: 18:44 rt 06/01 17:23 Order name: CT Head Brain wo Cont; Complete Time: 19:28 rt 06/01 20:26 Order name: Brain Wo Cont EDMS 06/01 17:23 Order name: EKG; Complete Time: 17:24 rt 06/01 20:27 Order name: Occupational Therapy Consult EDAL 06/01 20:27 Order name: Physical Therapy Consult EDAL 06/01 17:23 Order name: Cardiac monitoring; Complete Time: 17:34 rt 06/01 17:23 Order name: EKG - Nurse/Tech; Complete Time: 17:56 rt 06/01 17:23 Order name: IV Saline Lock; Complete Time: 17:56 rt 06/01 17:23 Order name: Labs collected and sent; Complete Time: 17:56 rt 06/01 17:23 Order name: O2 Per Protocol; Complete Time: 17:34 rt 06/01 17:23 Order name: O2 Sat Monitoring; Complete Time: 17:34 rt EC:58 Rate is 61 beats/min. Rhythm is regular, A fib with No ectopy, Right bundle branch rt block. Left axis deviation noted. QRS interval is normal. QT interval is normal. No Q waves. Administered Medications: 18:08 Drug: NS 0.9% IV 1000 ml IV at 1000 ml once; to be given as a bolus over 60 minutes le1 Route: IV; Rate: 1000 ml; Site: right antecubital; 21:20 Follow up: Response: No adverse reaction; IV Status: Completed infusion ha1 20:35 Drug: Nicotine Transdermal Patch 21 mg/24 hr 1 patches Transdermal once Route: le1 Transdermal; Site: affected area; Disposition Summary: 06/01/24 19:38 Hospitalization Ordered Notes: Hospitalization Status: Inpatient Admission sp3 Provider: Prince khai Tineo Location: Telemetry/MedSurg (Inpatient) sp3 Condition: Stable sp3 Problem: an acute exacerbation sp3 Symptoms: have worsened sp3 Bed/Room Type: Standard sp3 Room Assignment: 201(06/01/24 21:09) [facility] Diagnosis - Acute kidney injury, dehydration, confusion sp3 Forms: - Medication Reconciliation Form sp3 - SBAR form sp3 - Leadership Thank You Letter sp3 Signatures: Dispatcher [employer] EDGarett Carter MD MD sp3 Lev Payne MD MD [facility] Carlos Manuel Enrique RN RN le1 Tara Aranda RN ha1 Corrections: (The following items were deleted from the chart) 20: 19:[address] 21:09 20:[address] [place] [address]
--- NOTE | 2024-06-01 19:39 | ER ---
Nurse's Notes [facility] Name: Wale Mistry Age: 88 yrs Sex: Male : 1935 Arrival Date: 06/01/2024 Time: 17:02 Bed 3 Private MD: Diagnosis: Acute kidney injury, dehydration, confusion Presentation: 06/01 17:10 Chief complaint: EMS states: EMS states patient family complaints of generalized le1 weakness and altered mental status axo 3. Ebola Screen: Patient negative for fever greater than or equal to 101.5 degrees Fahrenheit, and additional compatible Ebola Virus Disease symptoms Patient denies exposure to infectious person. Patient denies travel to an Ebola-affected area in the 21 days before illness onset. No symptoms or risks identified at this time. Initial Sepsis Screen: Does the patient meet any 2 criteria? Systolic BP < 90 mmHg. Altered Mental Status. Yes Does the patient have a suspected source of infection? No. Patient's initial sepsis screen is negative. Risk Assessment: Do you want to hurt yourself or someone else? Patient reports no desire to harm self or others. Onset of symptoms was June 01, 2024. 17:10 Method Of Arrival: EMS: [facility] le1 17:10 Acuity: VINOD 2 le1 Triage Assessment: 18:23 General: Appears in no apparent distress. uncomfortable, Behavior is calm, cooperative, le1 fussy. Pain: Complains of pain in generalized Pain currently is 4 out of 10 on a pain scale. Quality of pain is described as aching, Pain began. EENT: No deficits noted. Neuro: Level of Consciousness is awake, alert, obeys commands. Cardiovascular: Rhythm is atrial fibrillation. Respiratory: No deficits noted. GI: No deficits noted. : No deficits noted. Historical: - PMHx: 17:14 Atrial Fib; Hypertension; Dementia; le1 - PSHx: 17:14 heart stent; left leg stents; le1 - Immunization history:: Adult Immunizations up to date. - Infectious Disease History:: Denies. - Social history:: Smoking status: Patient reports the use of cigarette tobacco products, unknown amount. - Family history:: not pertinent. Screenin:33 Abuse screen: Denies threats or abuse. Denies injuries from another. Nutritional le1 screening: No deficits noted. Tuberculosis screening: No symptoms or risk factors identified. 18:22 [facility] ED Fall Risk Assessment (Adult) History of falling in the last 3 months, le1 including since admission Yes- single mechanical fall (1 pt) Confusion or Disorientation Yes (5 pts) Intoxicated or Sedated No (0 pts) Impaired Gait Yes (1 pt) Mobility Assist Device Used No (0 pt) Altered Elimination Yes (1 pt) Score/Fall Risk Level 3 or more points = High Risk Oriented to surroundings, Maintained a safe environment, Educated pt \T\ family on fall prevention, incl call for assistance when getting out of bed, Assessed \T\ reinforced patient's understanding of fall precautions, Provided non-skid footwear, Hourly rounding (assess needs \T\ fall precautionary measures) done, Used ambulatory aids as needed (educated on \T\ assisted with), Utilized family, sitter, or virtual milk processing worker as indicated. Assessment: 21:30 Reassessment: Patient and/or family updated on plan of care and expected duration. Pain ha1 level reassessed. Vital Signs: 17:10 BP 89 / 68; Pulse 49; Resp 18; Temp 98.9(O); Pain 0/10; le1 17:33 Pulse Ox 100% on R/A; le1 18:41 BP 82 / 52; Pulse 47; Resp 21; Pulse Ox 98% on R/A; Pain 0/10; le1 21:40 BP 105 / 62; Pulse 60; Resp 17 S; Pulse Ox 97% on R/A; ha1 17:10 Pain Scale: Adult le1 18:41 Pain Scale: Adult le1 ED Course: 17:09 Patient arrived in ED. le1 17:14 Triage completed. le1 17:16 Lev Payne MD is Attending Physician. rt 17:16 Arm band placed on right wrist. le1 17:34 Carlos Manuel Enrique, RN is Primary Nurse. le1 18:19 XRAY Chest (1 view) In Process Unspecified. EDMS 18:21 Patient has correct armband on for positive identification. Placed in gown. Bed in low le1 position. Call light in reach. Side rails up X2. Adult w/ patient. Provided Education on: Informed to use call light for assistance. 18:22 Initial lab(s) drawn, by me, sent to lab. EKG done, by ED staff, reviewed by Lev Payne MD. Inserted saline lock: 20 gauge in right antecubital area, using aseptic technique. Blood collected. Flushed with 10 mL NS. 18:59 Attending Physician role handed off by Lev Payne MD sp3 18:59 Garett Douglas MD is Attending Physician. sp3 19:10 Urine collected: straight cath specimen, alexa colored, Amount Returned: 300mL. le1 19:19 CT Head Brain wo Cont In Process Unspecified. EDMS 19:38 Prince Tineo MD is Hospitalizing Provider. sp3 21:30 Report received from ISRRAEL ruelas. ha1 22:10 No provider procedures requiring assistance completed. Patient admitted, IV remains in ha1 place. Administered Medications: 18:08 Drug: NS 0.9% IV 1000 ml IV at 1000 ml once; to be given as a bolus over 60 minutes le1 Route: IV; Rate: 1000 ml; Site: right antecubital; 21:20 Follow up: Response: No adverse reaction; IV Status: Completed infusion ha1 20:35 Drug: Nicotine Transdermal Patch 21 mg/24 hr 1 patches Transdermal once Route: le1 Transdermal; Site: affected area; Medication: 22:11 VIS not applicable for this client. ha1 Outcome: 19:38 Decision to Hospitalize by Provider. sp3 22:10 Admitted to Med/surg accompanied by tech, family with patient, via stretcher, room 201, ha1 with chart, 22:10 Condition: stable 22:10 Instructed on the need for admit, 22:11 Patient left the ED. ha1 Signatures: Dispatcher [employer] EDOK Garett Douglas MD MD sp3 Tara Aranda, RN RN ha1 Lev Payne MD MD rt Carlos Manuel Enrique RN RN le1
[2024-06-01] MEDS ORDERED: ONDANSETRON 4 MG/2 ML VIAL IV PRN (20:16)
[2024-06-01] MEDS ORDERED: NICOTINE 21 MG/PAT TD ONE (20:18)
--- NOTE | 2024-06-01 20:19 | P.HP ---
Certification for Inpatient Patient admitted to: Observation With expected LOS: <2 Midnights Practitioner: I am a practitioner with admitting privileges, knowledge of patient current condition, hospital course, and medical plan of care. Services: Services provided to patient in accordance with Admission requirements found in Title 42 Section 412.3 of the Code of Federal Regulations Patient History Date of Service: 06/01/24 Reason for admission: AMS History of Present Illness: Patient is a 88-year-old male who is being admitted after he presents with altered mental status. Patient is unable to provide a history. He appears agitated in the ER. Both daughters are at bedside. They state that his been experiencing altered mental status manifested by increased lethargy, nonsensical words and disorientation. Patient has a history of CVA, peripheral vascular disease status post stent placement. At baseline, he is functional and independent in his ADLs. His symptoms have been acutely worsening Allergies No Known Allergies Allergy (Unverified 09/14/18 22:30) Home Medications: Amlodipine [Norvasc*] 1 tab PO DAILY 09/15/18 Codeine/APAP [Tylenol #3*] 1 tab PO Q6H 09/15/18 Furosemide [Lasix*] 1 tab PO DAILY 09/15/18 Losartan Potassium 1 tab PO DAILY 09/15/18 Mirabegron [Myrbetriq] 1 tab PO DAILY 09/15/18 Naproxen [Naprosyn] 1 tab PO BID 09/15/18 Rivaroxaban [Xarelto] 1 tab PO BEDTIME 09/15/18 Tamsulosin HCl [Flomax] 1 tab PO BEDTIME 09/15/18 Metoprolol Tartrate [Lopressor*] 25 mg PO BID 06/20/21 Albuterol Inhaler [Ventolin Inhaler*] 2 puff IH Q6H PRN #1 inhaler 12/04/22 Albuterol Neb [Proventil 0.083% Neb Soln] 2.5 mg NEB [id number] PRN #60 amp 12/04/22 Arformoterol Tartrate [Brovana] 15 mcg NEB BIDRESP #60 vial.neb 12/04/22 Benzonatate [Tessalon Perle*] 100 mg PO TID PRN #20 cap 12/04/22 Clopidogrel Bisulfate [Plavix*] 75 mg PO DAILY #30 tab 12/04/22 Finasteride [Proscar*] 5 mg PO BEDTIME #30 tab 12/04/22 Furosemide [Lasix*] 20 mg PO DAILY #30 tab 12/04/22 Ipratropium Neb [Atrovent*] 0.5 mg NEB [id number] PRN #60 amp 12/04/22 Losartan Potassium [Cozaar*] 100 mg PO DAILY #30 tab 12/04/22 Metoprolol Tartrate [Lopressor*] 25 mg PO [id number] #30 tab 12/04/22 Pantoprazole [Protonix Tab*] 40 mg PO DAILYAC #30 tab 12/04/22 Spironolactone [Aldactone] 25 mg PO DAILY #30 tab 12/04/22 predniSONE [Deltasone*] 10 mg PO BID #14 tab 12/04/22 Nebulizer 1 each MC DAILY #1 ea 12/05/22 Nebulizer Accessories [Adult Aerosol Mask] 1 each MC DAILY #1 ea 12/05/22 - Past Medical/Surgical History Diabetic: No -: chronic A.Fib -: hypertension -: PAD -: CAD -: Hyperlipidemia -: BPH -: hydrocelectomy -: Heart, leg stents Psychosocial/ Personal History: Patient lives at home with his family - Family History Father -: Hypertension, Diabetes, Stroke Mother -: Hypertension, Stroke - Social History Alcohol use: Yes CD- Drugs: No Caffeine use: Yes Physical Examination - Physical Exam General: Confused HEENT: Atraumatic, Normocephalic Respiratory: Clear to auscultation bilaterally, Normal air movement Cardiovascular: No edema, Normal pulses, Regular rate/rhythm, Normal S1 S2 Neurological: Dementia - Studies Laboratory Data (last 24 hrs) 06/01/24 06/01/24 17:54 17:54 WBC 9.50 Hgb 14.8 Hct 43.0 Plt Count 131 L Sodium 137 Potassium 4.1 BUN 31 H Creatinine 2.20 H Glucose 137 H Magnesium 2.3 Total Bilirubin 1.1 H AST 22 ALT 16 Alkaline Phosphatase 86 Assessment and Plan - Plan Assessment This is a 88-year-old male who is being admitted for altered mental status. CT head was unremarkable. Patient has evidence of GRGEORIA Acute encephalopathy GREGORIA History of CVA History of peripheral vascular disease Plan: Will admit under observation IV fluid infusion Will obtain a brain MRI Repeat labs tomorrow As needed anxiolytics - Advance Directives Does patient have a Living Will: Yes Does patient have a Durable POA for Healthcare: Yes
[2024-06-01] MEDS: LORazepam 2 MG/ML VIAL IV ONE (23:07)
[2024-06-01] MEDS: NA CHLORIDE 0.9% 1,000 ML IV SCH (23:07)
[2024-06-02 00:06] LABS: Magnesium 2.1 mg/dL (1.6-2.4); Phosphorus 4.1 mg/dL (2.5-4.9)
[2024-06-02 05:13] LABS: Absolute Basophils 0.1 K/uL (0-0.5); Absolute Eosinophils 0.1 K/uL (0-0.5); Absolute Lymphocytes (CBC) 1.5 K/uL (0.7-4.9); Absolute Monocytes 1.1 K/uL (0.1-1.3); Absolute Neutrophil 6.8 K/uL (1.8-8.0); Basophils % 0.8 % (0-1.3); Eosinophils % 0.6 % (0-4.4); Hematocrit 39.9 % (39.6-49.0); Hemoglobin 13.9 g/dL (13.6-17.9); Lymphocytes % 15.4 % (15.3-44.8); MCH 32.1 pg (27.0-35.0); MCHC 34.7 g/dL (32.0-36.0); MCV 92.3 fL (80-100); MPV 9.1 fL (7.6-11.3); Monocytes % 11.2 % (3.3-12.3); Platelets 116 thou/uL (152-406); RBC Red Blood Cell Count 4.33 M/uL (4.33-5.43); Red Cell Distribution Width 14.6 % (12.1-15.2)
[2024-06-02 05:20] LABS: PT Prothrombin Time 12.3 SECONDS (10.0-13.0); Protime INR 1.08
[2024-06-02 05:26] LABS: Anion Gap 10.6 mEq/L (5.0-15.0); Potassium 3.6 mEq/L (3.5-5.1)
[2024-06-02] MEDS: LORazepam 2 MG/ML VIAL IV ONE ×2 (08:15→11:17)
[2024-06-02] MEDS: ENOXAPARIN 30 MG/0.3 ML SQ SCH (09:00)
[2024-06-02] MEDS: LORazepam 2 MG/ML VIAL IV PRN (10:42)
--- NOTE | 2024-06-02 11:58 | RAD REPORT ---
EXAMINATION: MRI BRAIN WITHOUT CONTRAST CLINICAL INDICATION: [facility] TECHNIQUE: Multiplanar multisequence MR images of the brain were obtained without intravenous contras t. Unless otherwise specified, incidental findings do not require dedicated imaging follow-up. COMPARISON: 06/01/2024 CT head study FINDINGS: Significant motion artifact is present, limiting examination. INTRACRANIAL: Grossly, there is 6 mm area diffusion restriction right basal ganglia which may represe nt a small acute lacunar infarct. Full assessment is quite limited by motion artifact. No evidence of hemorrhage, hydrocephalus or midline shift. Moderate chronic periventricular deep white matter sig nal changes. Tiny focus of susceptibility noted left basal ganglia. SINUSES: The paranasal sinuses and mastoid air cells are predominantly clear. BONE: The marrow signal pattern is within normal limits. IMPRESSION: The study is quite limited by patient motion artifact, degrading image quality. Within this limitatio n, a small 6 mm acute right lacunar infarct is possible.
[2024-06-02] MEDS: FLU (Fluarix Triv) TS24-25(6MOS UP)/PF 45 MCG/0.5 ML Syringe IM ONE (12:00)
--- NOTE | 2024-06-02 12:04 | EKG ---
Test Date: 2024-06-01 Test Time: 17:52:59 Market Manager: [id number] MEASUREMENT RESULTS: Intervals: Rate: 61 NH: QRSD: 140 QT: 480 QTc: 483 [place]: P: NH: QRS: -62 T: -27 INTERPRETIVE STATEMENTS: Atrial fibrillation Left axis deviation Right bundle branch block Possible Lateral infarct, age undetermined Inferior infarct, age undetermined Abnormal ECG Compared to ECG 12/04/2022 02:48:48 Left-axis deviation now present Myocardial infarct finding still present Electronically Signed On 06-02-24 12:02:40 MANAGER MUSIC by Jacob Bryan
[2024-06-02] MEDS ORDERED: DEXMEDETOMIDINE HCL 200 MCG in NA CHLORIDE 0.9% 98 ML IV SCH (15:04)
[2024-06-02] MEDS: DEXMEDETOMIDINE HCL 1,000 MCG in NA CHLORIDE 0.9% 490 ML IV SCH (16:47)
[2024-06-02] MEDS: chlordiazePOXIDE HCl 5 MG CAP PO SCH (20:15)
[2024-06-02] MEDS: DONEPEZIL HCL 5 MG TAB PO SCH (20:15)
[2024-06-02] MEDS: TAMSULOSIN 0.4 MG SR CAP PO SCH (20:15)
[2024-06-02] MEDS ORDERED: HEPARIN 5000 UNIT/ML 1 ML VIAL IV SCH (21:00)
[2024-06-02] MEDS ORDERED: HOME MED 1 EA UNK (Donepezil Hcl [Donepezil Hcl] 10 MG Tablet) PO SCH (21:00)
[2024-06-02] MEDS ORDERED: METOPROLOL TAR 25 MG TAB PO SCH (21:00)
[2024-06-02 21:03] LABS: Specific Gravity 1.011 (1.005-1.030); Sqamous Epithelial None Seen /HPF (None Seen); Urine Bacteria <20 /HPF (<20); Urine Bilirubin NEGATIVE (Negative); Urine Blood Trace (Negative); Urine Clarity Turbid (Clear); Urine Color Light-Yellow (Yellow); Urine Culture Reflex Order NOT NEEDED; Urine Glucose NEGATIVE (Negative); Urine Ketones NEGATIVE (Negative); Urine Microscopic Reflex YN ORDER UMIC; Urine Mucus Slight /HPF (None Seen); Urine Nitrite NEGATIVE (Negative); Urine Protein NEGATIVE (Negative); Urine RBC <5 /HPF (None Seen); Urine Urobilinogen Normal (Normal); Urine WBC <5 /HPF (<5); Urine WBC Clump Rare /HPF (None Seen); Urine Yeast (Budding) Trace /HPF (None Seen)
[2024-06-03 05:57] LABS: Absolute Basophils 0.1 K/uL (0-0.5); Absolute Lymphocytes (CBC) 1.2 K/uL (0.7-4.9); Absolute Monocytes 0.9 K/uL (0.1-1.3); Absolute Neutrophil 9.9 K/uL (1.8-8.0); Basophils % 0.4 % (0-1.3); Hematocrit 48.1 % (39.6-49.0); Hemoglobin 16.3 g/dL (13.6-17.9); Lymphocytes % 10.2 % (15.3-44.8); MCH 31.9 pg (27.0-35.0); MCHC 33.9 g/dL (32.0-36.0); MCV 94.1 fL (80-100); MPV 9.4 fL (7.6-11.3); Monocytes % 7.3 % (3.3-12.3); Neutrophils % 82.1 % (41.7-73.7); Nucleated Red Blood Cells % 0.1 % (0-0); Platelets 130 thou/uL (152-406); RBC Red Blood Cell Count 5.11 M/uL (4.33-5.43); Red Cell Distribution Width 14.6 % (12.1-15.2)
[2024-06-03 06:06] LABS: Anion Gap 9.5 mEq/L (5.0-15.0); Phosphorus 3.5 mg/dL (2.5-4.9); Potassium 3.5 mEq/L (3.5-5.1)
[2024-06-03] MEDS: KCL 20 MEQ/100 mL IVPB 20 MEQ/100 ML BAG IV SCH (06:20)
[2024-06-03] MEDS ORDERED: FUROSEMIDE 20 MG/ 2ML VIAL IV SCH (09:00)
[2024-06-03] MEDS: LOSARTAN POTASSIUM 50 MG TABLET PO SCH (09:00)
[2024-06-03] MEDS: OXYBUTYNIN ER 5 MG TAB PO SCH (09:00)
[2024-06-03] MEDS: AMLODIPINE 5 MG TAB PO SCH (09:00)
[2024-06-03] MEDS: CLOPIDOGREL 75 MG TABLET PO SCH (09:00)
[2024-06-03] MEDS: FOLIC ACID 1 MG TABLET PO SCH (09:00)
[2024-06-03] MEDS: MONTELUKAST 10 MG TAB PO SCH (09:00)
--- NOTE | 2024-06-03 11:20 | RAD REPORT ---
EXAMINATION: ONE VIEW CHEST XR CLINICAL INDICATION: Hypoxia TECHNIQUE: Frontal chest projection is submitted. Examination is limited by patient positioning and t echnique. COMPARISON: 06/01/2024 FINDINGS: There is extensive bilateral pulmonary opacities, particularly in the right lung which is nearly comp letely opacified. This likely represents pneumonia or asymmetric pulmonary edema. The heart is upper limit of normal in size. No displaced fractures identified. IMPRESSION: Significant worsening of right lung aeration since comparison study.
--- NOTE | 2024-06-03 12:43 | P.CNS ---
Date of Consult: 06/03/24 Reason for Consult: Altered mental status alcohol withdrawal Chief Complaint: AMS History of Present Illness: Patient is 88 years of age transferred from the floor with altered mental status history obtained from daughter apparently he has baseline dementia is able to function mow the lawn drive the car patient smokes heavily he is an alcoholic numerous underlying medical problems including spinal stenosis peripheral vascular disease he has had previous strokes before currently his patient is altered has had some sedation very small with acute stroke on MRI patient is hypoxic chest x-ray looks abnormal no prior history of COPD does not take any bronchodilators Allergies apixaban [From Eliquis] Adverse Reaction (Severe, Verified 06/03/24 01:34) Shortness of breath Iodinated Contrast Media Adverse Reaction (Severe, Verified 06/01/24 22:41) Itching Home Medications: Amlodipine [Norvasc*] 1 tab PO DAILY 09/15/18 Tamsulosin HCl [Flomax] 1 tab PO BEDTIME 09/15/18 Metoprolol Tartrate [Lopressor*] 25 mg PO BID 06/20/21 Clopidogrel Bisulfate [Plavix*] 75 mg PO DAILY #30 tab 12/04/22 Furosemide [Lasix*] 20 mg PO DAILY #30 tab 12/04/22 Losartan Potassium [Cozaar*] 100 mg PO DAILY #30 tab 12/04/22 Donepezil HCl 10 mg PO BEDTIME 06/02/24 Folic Acid 1 mg PO DAILY 06/02/24 Montelukast [Singulair] 10 mg PO DAILY 06/02/24 Oxybutynin Chloride [Oxybutynin Chloride ER] 5 mg PO DAILY 06/02/24 - Past Medical/Surgical History Diabetic: No -: chronic A.Fib -: hypertension -: PAD -: CAD -: Hyperlipidemia -: BPH -: Watchman Procedure -: Stent R hip -: Stent L Knee -: hydrocelectomy -: Heart, leg stents -: Watchman Procedure Psychosocial/ Personal History: Patient lives at home with his family - Family History Father Medical History: Hypertension, Diabetes, Stroke Mother Medical History: Hypertension, Stroke - Social History Smoking Status: Current every day smoker Alcohol use: Yes CD- Drugs: No Caffeine use: Yes Place of Residence: Home Review of Systems is unable to be obtained Physical Examination Temp Pulse Resp BP Pulse Ox 97.1 F 109 H 25 H 116/82 98 06/03/24 12:00 06/03/24 12:00 06/03/24 12:00 06/03/24 12:00 06/03/24 12:00 General: Unresponsive Respiratory: Clear to auscultation bilaterally, Normal air movement Cardiovascular: No edema, Regular rate/rhythm, Normal S1 S2 Gastrointestinal: Normal bowel sounds, Soft and benign Neurological: Other (Unable to assess patient will is able to move his hands not his legs right now currently delirious) - Problems (1) Pneumonia Current Visit: Yes Status: Acute Plan: Possible aspiration pneumonia he has a significant change in his x-ray, almost complete opacification of the right lung is also hypoxic very heavy smoker alco anders currently add some Solu-Medrol I also added Zosyn IV thiamine high-dose dexmedetomidine if needed patient also failed his swallow test very small stroke 6 mm lacunar infarct labs reviewed his renal function is improved labs reviewed chest x-ray reviewed we also changed to high flow nasal cannula if needed at his baseline patient is able to ambulate with a walker Qualifiers: Pneumonia type: due to unspecified organism Laterality: right
[2024-06-03] MEDS: METHYLPREDNISOLONE 125 MG INJ IV SCH (13:07)
[2024-06-03] MEDS: THIAMINE 200 MG/2 ML INJ IVP SCH (13:08)
[2024-06-03] MEDS: IPRATROPIUM BROM 0.5MG/2.5ML NEB SCH (13:12)
[2024-06-03] MEDS: ALBUTEROL 2.5 MG/3 ML NEB SOL IH SCH (13:12)
[2024-06-03] MEDS: PIPER TAZO 3.375 GM in NA CHLORIDE 0.9% 100 ML IV SCH (16:22)
[2024-06-03] MEDS: METOPROLOL TARTRATE 5 MG/5 ML INJ IV SCH (18:49)
[2024-06-03] MEDS: FUROSEMIDE 20 MG/ 2ML VIAL IV ONE ×2 (18:50→23:32)
[2024-06-03] MEDS: NA CHLORIDE 0.9% 1,000 ML IV SCH (19:56)
[2024-06-03] MEDS: ATORVASTATIN 80 MG TAB PO SCH (19:58)
[2024-06-03] MEDS: dilTIAZem HCL 25 MG/5 ML VIAL IV ONE ×2 (21:24→23:32)
[2024-06-03] MEDS: AZITHROMYCIN 500 MG INJ IVPB ONE (23:22)
[2024-06-03] MEDS: NA CHLORIDE 0.9% 250 ML ONE (23:22)
[2024-06-03] MEDS: AZITHROMYCIN IV 250 MG in NA CHLORIDE 0.9% 250 ML IVPB ONE (23:30)
[2024-06-04 00:11] LABS: Anion Gap 13.1 mEq/L (5.0-15.0); Potassium 3.1 mEq/L (3.5-5.1); Troponin High Sensitivity 30.1 pg/mL (<58.9)
[2024-06-04 00:57] LABS: Magnesium 2.1 mg/dL (1.6-2.4)
[2024-06-04] MEDS: dilTIAZem HCL 25 MG/5 ML VIAL IV ONE (01:17)
[2024-06-04 03:38] LABS: Blood Gas Oxyhemoglobin 87.5 % (94-97); Blood O2 Saturation 89.2 % (92-98.5)
[2024-06-04 03:39] LABS: Arterial Blood Carboxyhemoglob 1.1 % (0-1.5); Blood Gas THB 17.2 g/dl (12-18)
[2024-06-04 05:42] LABS: Absolute Lymphocytes (CBC) 0.4 K/uL (0.7-4.9); Absolute Monocytes 0.7 K/uL (0.1-1.3); Absolute Neutrophil 13.4 K/uL (1.8-8.0); Basophils % 0.1 % (0-1.3); Hematocrit 42.9 % (39.6-49.0); Hemoglobin 14.5 g/dL (13.6-17.9); Lymphocytes % 2.8 % (15.3-44.8); MCH 31.5 pg (27.0-35.0); MCHC 33.7 g/dL (32.0-36.0); MCV 93.5 fL (80-100); MPV 9.5 fL (7.6-11.3); Neutrophils % 92.1 % (41.7-73.7); Platelets 146 thou/uL (152-406); RBC Red Blood Cell Count 4.59 M/uL (4.33-5.43); Red Cell Distribution Width 14.5 % (12.1-15.2)
[2024-06-04 06:07] LABS: Anion Gap 8.7 mEq/L (5.0-15.0); Magnesium 1.9 mg/dL (1.6-2.4); Potassium 2.7 mEq/L (3.5-5.1); Thyroid Stimulating Hormone 0.593 uIU/mL (0.358-3.740)
[2024-06-04 06:09] LABS: Phosphorus 1.3 mg/dL (2.5-4.9)
[2024-06-04] MEDS: POTASSIUM PHOS IN 0.9 % NACL 15 MMOL/250 ML BAG IV ONE ×2 (07:00→08:08)
[2024-06-04] MEDS: Meropenem 1,000 MG in NA CHLORIDE 0.9% 100 ML IV SCH (08:07)
--- NOTE | 2024-06-04 08:09 | P.PN ---
Subjective Date of Service: 06/04/24 Chief Complaint: Delirium No change in patient's condition he continues to remain delirious agitated Review of Systems is unable to be obtained Physical Examination - Vital Signs Temperature: 97.6 F Blood Pressure: 146/107 Pulse: 108 Respirations: 18 Pulse Ox (%): 95 - Physical Exam General: Delirious, Unresponsive Neck: Supple Respiratory: Crackles/rales (Crackles on the right side) Cardiovascular: Normal pulses, Regular rate/rhythm, Normal S1 S2 Assessment And Plan - Current Problems (Diagnosis) (1) Pneumonia Current Visit: Yes Status: Acute Plan: Patient is 88 years of age admitted with delirium secondary to alcohol withdrawal I ordered another x-ray continue with meropenem is 94% on 3 L white count is mildly elevated patient is on Precedex consider Dobbhoff if unable to tolerate TPN patient is also a very heavy smoker discontinue steroids Qualifiers: Pneumonia type: due to unspecified organism Laterality: right
[2024-06-04] MEDS: KCL 20 MEQ/100 mL IVPB 20 MEQ/100 ML BAG IV SCH (08:12)
--- NOTE | 2024-06-04 09:07 | P.PN ---
Subjective Date of Service: 06/02/24 Patient admitted patient's mentation is still very poor. Family was at bedside and we had a long discussion about patient's current workup. MRI was performed which revealed an acute infarct. Patient also with a substantial alcohol history. Apparently on patient was using a 0 turn lawnmower to cut his yard. He was not able to get off his lawnmower and the family brought him into the house. His mentation never improved nor did his strength. They finally decided to bring him back into the hospital this weekend. His mentation was worsened and they felt like he may be withdrawing. Patient had a CT of the brain which did not reveal any acute abnormality. MRI of the brain however does show an acute infarct. Patient was started on antiplatelet therapy and statin therapy. As patient's mentation was not improving and there was concern for airway protection we went ahead and moved him into the ICU. Patient will be continue to monitor in ICU and will continue with antiplatelet therapy and statin therapy. Patient's long-term prognosis is poor. Review of Systems is unable to be obtained Physical Examination - Vital Signs Temperature: 97.6 F Blood Pressure: 146/107 Pulse: 108 Respirations: 18 Pulse Ox (%): 95 - Physical Exam General: Confused HEENT: Atraumatic, Normocephalic, EOMI Neck: Supple, 2+ carotid pulse no bruit, JVD not distended Respiratory: Clear to auscultation bilaterally, Diminished Cardiovascular: Regular rate/rhythm, Normal S1 S2, No murmurs Gastrointestinal: Normal bowel sounds, Soft and benign, Non-distended, No tenderness Musculoskeletal: No clubbing, No swelling Neurological: Other (Patient with confusion and difficulty following commands. He does move all his extremities but left side is weaker) Assessment & Plan - Problems (Diagnosis) (1) Altered mental status Current Visit: Yes Status: Acute (2) History of alcohol abuse Current Visit: Yes Status: Acute (3) Acute stroke of basal ganglia Current Visit: Yes Status: Acute (4) COPD exacerbation Current Visit: No Status: Acute (5) Chronic a-fib Current Visit: No Status: Acute - Plan PLAN: 1. Altered mental status; multifactorial-patient with basal ganglia infarct along with delirium tremens; patient was on Precedex drip. Weaning this down. Continue with nutritional support. Continue out of bed and ambulating. Continue with antiplatelet therapy and statin therapy. Continue with Librium 3 times daily. 2. Pneumonia; possible aspiration. However, patient was able to eat at bedside. Currently working with speech therapy. Continue with antibiotic therapy. 3. Atrial fibrillation; continue with medication for rate control. Continue with amiodarone and digoxin. Continue with beta-augustus therapy; patient with a history of watchman's. He does not need any aggressive anticoagulation at this time. 4. Acute on chronic kidney disease; continue monitoring renal function closely. 5. Peripheral arterial disease; status post lower extremity stents; continue with antiplatelet therapy and statin therapy 6. GI DVT prophylaxis Discharge Plan: Home Plan to discharge in: Greater than 2 days - Advance Directives Does patient have a Living Will: No Does patient have a Durable POA for Healthcare: Yes - Code Status/Comfort Care Code Status Assessed: Yes Code Status: Full Code Critical Care: Yes Time Spent Managing PTS Care (In Minutes): 35
[2024-06-04 10:12] LABS: Blood Morphology Comment NOT SEEN (NOT SEEN); Platelet Estimate ADEQ; Platelets, Giant FEW; White Blood Cell Scan OK (OK)
--- NOTE | 2024-06-04 10:45 | ECHO ---
HEIGHT: 5 ft 9 in WEIGHT: 162 lb 9.6 oz DATE OF STUDY: 06/03/[address]: Joshua Bates MD 2-DIMENSIONAL: YES M.MODE: YES DOPPLER: YES COLOR FLOW: YES TDS: PORTABLE: YES DEFINITY: BUBBLE STUDY: DIAGNOSIS: CONGESTIVE HEART FAILURE CARDIAC HISTORY: CATHERIZATION: NO SURGERY: NO PROSTHETIC VALVE: NO PACEMAKER: NO MEASUREMENTS (cm) DIASTOLIC (NORMALS) SYSTOLIC (NORMALS) IVSd 1.1 (0.6-1.2) LA Diam 3.8 (1.9-4.0) LVEF 60-65% LVIDd 3.9 (3.5-5.7) LVIDs 2.4 (2.0-3.5) %FS 38% LVPWd 1.2 (0.6-1.2) Ao Diam 3.2 (2.0-3.7) 2 DIMENSIONAL ASSESSMENT: RIGHT ATRIUM: NORMAL LEFT ATRIUM: MODERATELY DILATED RIGHT VENTRICLE: NORMAL LEFT VENTRICLE: NORMAL TRICUSPID VALVE: MILD TRICUSPID REGURGITATION MITRAL VALVE: TRACE MITRAL REGURGITATION PULMONIC VALVE: NORMAL AORTIC VALVE: MILD AORTIC REGURGITATION, MODERATE AORTIC STENOSIS CALCIFIED PERICARDIAL EFFUSION: NONE AORTIC ROOT: NORMAL LEFT VENTRICULAR WALL MOTION: NORMAL DOPPLER/COLOR FLOW: DIASTOLIC DYSFUNCTION COMMENTS: 1. NORMAL LEFT VENTRICULAR SYSTOLIC FUNCTION, EJECTION FRACTION 60-65%, NORMAL WALL MOTION 2. DIASTOLIC DYSFUNCTION 3. CALCIFIED AORTIC VALVE WITH MODERATE AORTIC STENOSIS, MILD AORTIC REGURGITATION 4. NORMAL FILLING PRESSURE (RIGHT ATRIAL PRESSURE 5-10 mmHg) 5. MILD PULMONARY HYPERTENSION (RIGHT VENTRICULAR SYSTOLIC PRESSURE 40-45 mmHg) TECHNOLOGIST: AMELIA LOPEZ
--- NOTE | 2024-06-04 11:03 | EKG ---
Test Date: 2024-06-03 Test Time: 22:41:44 Flatwork Catcher: MCGA MEASUREMENT RESULTS: Intervals: Rate: 127 DC: QRSD: 150 QT: 386 QTc: 560 Ronald: P: DC: QRS: -66 T: 71 INTERPRETIVE STATEMENTS: Atrial fibrillation with rapid ventricular response with premature ventricular or aberrantly conducted complexes Left axis deviation Right bundle branch block Abnormal ECG Compared to ECG 06/01/2024 17:52:59 Ventricular premature complex(es) now present Myocardial infarct finding no longer present Electronically Signed On 06-04-24 11:02:12 ASSISTANT DIRECTOR OF PLANT OPERATIONS by Jacob Bryan
--- NOTE | 2024-06-04 11:03 | EKG ---
Test Date: 2024-06-03 Test Time: 22:42:34 Academic Associate: MCGA MEASUREMENT RESULTS: Intervals: Rate: 103 FL: QRSD: 162 QT: 404 QTc: 529 [place]: P: FL: QRS: -65 T: 58 INTERPRETIVE STATEMENTS: Atrial fibrillation with rapid ventricular response with premature ventricular or aberrantly conducted complexes Left axis deviation Right bundle branch block Abnormal ECG Compared to ECG 06/03/2024 22:41:44 No significant changes Electronically Signed On 06-04-24 11:02:03 GENERAL MAGISTRATE by Jacob Bryan
--- NOTE | 2024-06-04 11:25 | CON ---
Date of Consultation: 06/04/2024 Chief Complaint: The patient's daughters, 2 in the room, noted that he is more confused. Does have a baseline of dementia. His daughters noted that he was mowing the lawn with a 0 turn restaurant host on Sunday when he shouted for help and that is the arrive. He was unable to get off the restaurant host. They were eventually able to get him off the mower and got him home, but he was confused, could not e xpress his thoughts properly, did seem to comprehend what is going on. They note he has a baseline o f moderate dementia and at times would forget where he is and what he is doing. They attempted to se ek medical help, but he refused to go to the hospital. The following day, he became more confused an d intermittently combative and they decided to call EMS to do a check on him. The evaluation did not reveal presence of a stroke. They were told by the EMS that the field testing for stroke was negati ve, but he may still benefit from going in for a checkup. The patient refused at that point. He als o was able to continue with his activities, but the following day became worse and they eventually br ought him into [facility] on 06/02/2024. His initial head CT scan was negative for any acut e ischemic hemorrhagic findings. Laboratory studies showed unremarkable complete blood count with differential. His pH of 7.47, was s lightly elevated with pCO2 being low and pO2 also being low. His chemistries did reveal dehydration. Creatinine elevated to 1.79. His blood glucose slightly elevated. He has hypokalemia to 3.1 down to 2.7 and urinalysis initially was negative for urinary tract infection, suggests subsequently posit ivity. A chest x-ray did reveal possibility of an aspiration pneumonia. His subsequent brain MRI id entified a 6 mm right basal ganglia lacunar infarct and moderate chronic small vessel ischemic diseas e. The daughters did note that about 2 weeks prior to the event, he had stopped his "blood thinners. " They are unsure what he was taking, but they knew he was not compliant with it. Since hospitaliza tion, he has been in ICU and had some episodes of confusion as well as delirium, combative with the s taff and at times very difficult to arouse. At the time of my evaluation, he is out of bed and sitti ng in a chair and daughters were at the bedside. He was holding a cup of ice and he did follow instr uctions, but did require repeated stimulation to pay attention. He had no focal changes in terms of his face, arm, and leg that were obvious. Past Medical History: Moderate dementia and atrial fibrillation and he has been off anticoagulation. Hypertension. He has peripheral arterial disease. He has had stents in both legs and cardiac sten ts placed. Family History: Noncontributory. Social History: No alcohol, tobacco, or IV drug use. The patient does live alone with 2 daughters t o check on him regularly. Allergies: HE HAS ALLERGIES TO APIXABAN AND IODINATED CONTRAST. Review of Systems: Difficult to complete as the patient is not able to give a cohesive story. The patient's daughters n ote again intermittent fluctuation, but no obvious fevers, chills. He did not complain of generalize d myalgias. However, at the time he was sitting in the chair, he did say he had pain all over. No f ocal areas of pain. Physical Examination: Vital Signs: Blood pressure 146/107, pulse 108, respiratory rate 18, temperature 97.6, oxygen satura tion 98%. Weight 162 pounds, height 5 feet 9 inches, BMI of 24. General: He does appear mildly unkempt, today he was sitting in a chair, holding on the right hand a cup of ice that was somewhat slumped down and sleepy, but could be easily aroused. HEENT: He appears normocephalic, atraumatic. Sclerae appear anicteric. Oropharynx pink, moist. Neck: Appears supple. Chest: Clear. Heart: Irregularly irregular. Extremities: Show no significant clubbing, cyanosis, or edema. Neurological: He is alert and oriented to person, difficult to know if he is oriented to place, but he does follow simple commands without difficulty. Cranial nerves on 2 through 12 show no obvious de ficits. Face appear symmetric. He did have good visual threat response. Pupils are equal and round . He does respond to sensation equally on touching each side. In terms of strength in the arms, his arms do not appear to have any focal weakness, some incoordination in the left compared to the right upper extremity. He was not ambulated and will be ambulated with a gait belt and with therapist in tow. Assessment: Mr. Mistry is an 88-year-old patient, who has baseline dementia. He has now lacunar str marian after he has been off the Eliquis which he has been on for atrial fibrillation. He has hypertens ion and likely mild CHF pattern on chest x-ray that did show that finding. The small lacunar infarct of 6 mm and the right basal ganglia is contributing moderately to the patient's overall symptoms, bu t he has very little reserves to withstand any new stroke given his baseline dementia. Plan: Continue if the patient and family are able to make it a regular medication, the Eliquis or Xa relto perhaps 10 mg daily. He may continue with management of his blood pressure with mild permissiv e hypertension over the next 3 or 5 days. He should be in a safe environment with 24-hour care and s upervision for safety, lack of safety awareness. In addition, folic acid may be a helpful thing for him. During the day, if he is sleepy, vitamin B12 2500 mcg daily may be helpful. If he has combativ e aggressive tendencies which could occur with advanced dementia with psychosis, CBD gummies may be h elpful, although the patient's daughter says he does like showing things and may opt for CBD drops. He should be evaluated by Physical Therapy for the need for either inpatient therapy depending on whe re he is or home health therapy to continue help him to do well. If not possible, usp ma y be considered. Once he is able to be discharged, he may follow up in Dr. Jackson's clinic within the month. JACQUELYN/MIAN Voice ID: [id number] Report ID: [id number]
--- NOTE | 2024-06-04 12:01 | P.CNS ---
Date of Consult: 06/04/24 Chief Complaint: Delirium History of Present Illness: Patient with PMH of PAD s/p stenting, AF s/p watchman 3 years ago, presented with AMS, patient family mention that he had baseline dementia, he was on Eliquis before but he had significant internal bleeding. also patient got CAD m ild to moderate in nature. Allergies apixaban [From Eliquis] Adverse Reaction (Severe, Verified 06/03/24 01:34) Shortness of breath Iodinated Contrast Media Adverse Reaction (Severe, Verified 06/01/24 22:41) Itching Home Medications: Amlodipine [Norvasc*] 1 tab PO DAILY 09/15/18 Tamsulosin HCl [Flomax] 1 tab PO BEDTIME 09/15/18 Metoprolol Tartrate [Lopressor*] 25 mg PO BID 06/20/21 Clopidogrel Bisulfate [Plavix*] 75 mg PO DAILY #30 tab 12/04/22 Furosemide [Lasix*] 20 mg PO DAILY #30 tab 12/04/22 Losartan Potassium [Cozaar*] 100 mg PO DAILY #30 tab 12/04/22 Donepezil HCl 10 mg PO BEDTIME 06/02/24 Folic Acid 1 mg PO DAILY 06/02/24 Montelukast [Singulair] 10 mg PO DAILY 06/02/24 Oxybutynin Chloride [Oxybutynin Chloride ER] 5 mg PO DAILY 06/02/24 - Past Medical/Surgical History Diabetic: No -: chronic A.Fib -: hypertension -: PAD -: CAD -: Hyperlipidemia -: BPH -: Watchman Procedure -: Stent R hip -: Stent L Knee -: hydrocelectomy -: Heart, leg stents -: Watchman Procedure Psychosocial/ Personal History: Patient lives at home with his family - Family History Father Medical History: Hypertension, Diabetes, Stroke Mother Medical History: Hypertension, Stroke - Social History Smoking Status: Current every day smoker Alcohol use: Yes CD- Drugs: No Caffeine use: Yes Place of Residence: Home Review of Systems is unable to be obtained (patient is altered) Physical Examination Temp Pulse Resp BP Pulse Ox 97.6 F 108 H 17 167/83 H 98 06/04/24 09:18 06/04/24 11:00 06/04/24 11:00 06/04/24 11:00 06/04/24 11:00 General: Alert, In no apparent distress, Confused, Delirious HEENT: Atraumatic, PERRLA, Mucous membr. moist/pink, EOMI, Sclerae nonicteric Neck: Supple, 2+ carotid pulse no bruit, No LAD, Without JVD or thyroid abnormality Respiratory: Clear to auscultation bilaterally, Normal air movement Cardiovascular: Irregular heart rate/rhythm Gastrointestinal: Normal bowel sounds, No tenderness Musculoskeletal: No tenderness Integumentary: No rashes Neurological: Normal gait, Normal speech, Normal tone, Normal affect Lymphatics: No axilla or inguinal lymphadenopathy - Problems (1) Chronic a-fib Current Visit: No Status: Acute Plan: Patient with Watchman placement in the past, he is on Plavix for that and PAD stent. patient presented with possible stroke, explained to family that will need RANDOLPH to check on watchman and if clot seen then will need anticoagulation, family understand that due to his internal bleeding risk, he is still at risk of bleeding and they agree to try it again if needed. will continue to monitor his status and see when he is ready for RANDOLPH Amiodarone 150 mg IV X1 then continue drip per protocol
[2024-06-04] MEDS: AMIODARONE HCL 900 MG in Dextrose 5%-Water 482 ML IV SCH (12:12)
[2024-06-04] MEDS: AMIODARONE HCL 150 MG in D5W 100 ML IV STA (12:12)
[2024-06-04] MEDS: POTASSIUM PHOS 30 MM in NA CHLORIDE 0.9% 500 ML IV SCH (12:30)
--- NOTE | 2024-06-04 13:24 | RAD REPORT ---
EXAMINATION: ONE VIEW CHEST XR CLINICAL INDICATION: Male, 88 years old.,Pneumonia TECHNIQUE: Frontal chest projection is submitted. Examination is limited by patient positioning and t echnique. COMPARISON: 06/03/2024 FINDINGS: Partial improvement of patchy opacities throughout the right lung. Interstitial prominence in the lef t central lung appears mildly progressive since prior exam. No pneumothorax or sizable effusion. The heart is normal in size. Mediastinal contours are unremarkable. IMPRESSION: Findings as above, compatible with incompletely resolved pneumonia.
[2024-06-04] MEDS: FENTANYL CITR 100 MCG/2 ML IV ONE (13:34)
[2024-06-04] MEDS: METOPROLOL TARTRATE 5 MG/5 ML INJ IV ONE (18:48)
[2024-06-04] MEDS: METOPROLOL TARTRATE 5 MG/5 ML INJ IV SCH (19:00)
[2024-06-04] MEDS: HYDROMORPHONE HCL 0.5 MG/0.5 ML INJ IV ONE (19:02)
[2024-06-04] MEDS: METOPROLOL TARTRATE 5 MG/5 ML INJ IV STA (19:03)
[2024-06-04] MEDS: chlordiazePOXIDE HCl 5 MG CAP PO ONE (20:12)
[2024-06-04] MEDS: ASPIRIN 300 MG/SUPP PR SCH (20:13)
[2024-06-05] MEDS: chlordiazePOXIDE HCl 5 MG CAP PO SCH
[2024-06-05 01:58] LABS: Absolute Lymphocytes (CBC) 0.7 K/uL (0.7-4.9); Absolute Monocytes 1.2 K/uL (0.1-1.3); Absolute Neutrophil 14.2 K/uL (1.8-8.0); Basophils % 0.2 % (0-1.3); Hematocrit 42.6 % (39.6-49.0); Hemoglobin 14.2 g/dL (13.6-17.9); Lymphocytes % 4.4 % (15.3-44.8); MCH 31.2 pg (27.0-35.0); MCHC 33.2 g/dL (32.0-36.0); MCV 93.9 fL (80-100); MPV 9.6 fL (7.6-11.3); Monocytes % 7.5 % (3.3-12.3); Platelets 138 thou/uL (152-406); RBC Red Blood Cell Count 4.54 M/uL (4.33-5.43); Red Cell Distribution Width 14.5 % (12.1-15.2)
[2024-06-05 02:01] LABS: Anion Gap 11.4 mEq/L (5.0-15.0); Phosphorus 3.5 mg/dL (2.5-4.9); Potassium 3.4 mEq/L (3.5-5.1)
[2024-06-05 02:04] LABS: Neutrophils % 87.9 % (41.7-73.7)
[2024-06-05] MEDS: HALOPERIDOL LACT 5 MG/ML INJ IV ONE (03:06)
[2024-06-05] MEDS: KCL 20 MEQ/100 mL IVPB 20 MEQ/100 ML BAG IV SCH ×2 (06:00→15:53)
[2024-06-05] MEDS: FUROSEMIDE 20 MG/ 2ML VIAL ONE (07:13)
[2024-06-05] MEDS: FUROSEMIDE 40 MG/4 ML VIAL IV ONE (07:17)
--- NOTE | 2024-06-05 07:21 | RAD REPORT ---
Procedure: Chest Single View HISTORY: Cough. Pneumonia COMPARISON: June 04, 2024 FINDINGS: Worsening in extensive right pulmonary opacities. No significant change in left pulmonary opacities. Heart remains enlarged. No significant pleural effusion noted. IMPRESSION: Worsening in right and no significant change in left pulmonary opacities which may indicate pneumonia or asymmetric pulmonary edema.
[2024-06-05] MEDS: HYDRALAZINE HCL 20 MG/ML VIAL IV ONE (07:27)
[2024-06-05] MEDS: DIAZEPAM 10 MG/2 ML INJ SYRINGE IV ONE (08:20)
[2024-06-05] MEDS: METHYLPREDNISOLONE 125 MG INJ IV SCH (08:20)
[2024-06-05] MEDS: CLONIDINE 0.1 MG/PATCH TD SCH (08:21)
[2024-06-05] MEDS: NITROGLYCERIN 1 GM PKT TD ONE (08:40)
--- NOTE | 2024-06-05 10:42 | EEG ---
CHART: [id number] TEST ID#: [id number] DATE OF STUDY: 06/04/2024 THE EEG WAS RECORDED PORTABLE IN THE ICU ON A 17 CHANNEL MACHINE. ELECTRODES WERE APPLIED IN THE USUAL MANNER USING THE INTERNATIONAL 10-20 SYSTEM. THE WAKING BACKGROUND RHYTHM IN THIS RECORD CONSISTS OF POORLY DEVELOPED AND WELL ORGANIZED WAVES OF 4-6 HZ., IN A WIDE DISTRIBUTION WHICH ATTENUATE NORMALLY WITH EYE OPENING. LOW-VOLTAGE 15-18 HZ ACTIVITY IS EXPRESSED IN ALL REGIONS. THERE ARE NO FOCAL OR LATERALIZING FEATURES. NO EPILEPTIFORM ACTIVITY APPEARS. SLEEP DID NOT OCCUR. HYPERVENTILATION WAS NOT PERFORMED. PHOTIC STIMULATION PRODUCED NO DRIVING BILATERALLY. IMPRESSION: THIS IS A MILDLY ABNORMAL ROUTINE EEG DUE TO A MILDLY SLOW BACKGROUND. THIS IS A NON-SPECIFIC FINDING INDICATING THE PRESENCE OF A MILD DIFFUSE DISTRUBANCE IN CEREBRAL FUNCTION.
--- NOTE | 2024-06-05 11:57 | P.PN ---
Subjective Date of Service: 06/05/24 Chief Complaint: Delirium Subjective: No new changes Review of Systems is unable to be obtained (patient is altered) Physical Examination - Vital Signs Temperature: 97.9 F Blood Pressure: 144/110 Pulse: 115 Respirations: 30 Pulse Ox (%): 95 - Physical Exam General: Mild distress, Confused HEENT: Atraumatic, PERRLA, EOMI Neck: Supple, JVD not distended Respiratory: Clear to auscultation bilaterally, Normal air movement Cardiovascular: Regular rate/rhythm, Normal S1 S2 Gastrointestinal: Normal bowel sounds, No tenderness Musculoskeletal: No tenderness Integumentary: No rashes Neurological: Normal speech, Normal tone, Normal affect Lymphatics: No axilla or inguinal lymphadenopathy - Studies Medications List Reviewed: Yes Assessment And Plan - Current Problems (Diagnosis) (1) Chronic a-fib Current Visit: No Status: Acute Plan: Patient with Watchman placement in the past, he is on Plavix for that and PAD stent. patient presented with possible stroke, explained to family that will need RANDOLPH to check on watchman and if clot seen then will need anticoagulation, family understand that due to his history of internal bleeding, he is still at risk of bleeding again and they agree to try it again if needed. will continue to monitor his status and see when he is ready for RANDOLPH Amiodarone 150 mg IV X1 was given, now on drip per protocol patient did not pass swallow eval, will continue drip and scheduled IV lopressor patient overall prognosis is poor, need to discuss with family goal of care.
--- NOTE | 2024-06-05 12:01 | PN ---
Date of Progress Note: 06/05/2024 Time Of Service: 9 a.m. Subjective: Mr. Mistry actually had a slightly worse night than the night before. Reported from the nurse and daughters that he became somewhat more short of breath after he did some exercising yester day. His imaging identified likely more fluid on the lung with an exacerbation potentially of CHF. He had more edema. He was given Lasix and some mild sedation and is now doing better with his oxygen ation. He is still somewhat sedated and was not aroused during the morning evaluation. Objective: Again, the patient did not speak at this point as he has received some sedation. His emily ghters noted he did interact with them and answered some questions with apparently a niece as well as the daughters. Physical Examination: Vital Signs: Blood pressure 178/111, pulse up to about 112, pulse oximeter shows 95% and temperature 98.1, respiratory rate has been elevated to 21 to 23. General: He is otherwise resting in bed. Chest: Some decreased breath sounds. Extremities: Show trace to moderate edema. Otherwise, his exam at this point cannot be fully done as he is sedated. Laboratory Studies: White blood cell count today increased to 16.1 with neutrophils 87.9, hemoglobin level 14.2, hematocrit 42.6. His sodium is 145, potassium 3.4, chloride 115, carbon dioxide 22, BUN 33, creatinine 1.44, glucose 118 to 156, calcium 8.7, phosphorus 3.5, magnesium 2.0. A chest x-ray done this morning showed worsening right and no significant change in the left which may i ndicate pneumonia or asymmetric pulmonary edema. Assessment: Mr. Mistry is an 88-year-old patient with baseline dementia, who has elevated white coun t, positive pneumonia on chest x-ray, elevated neutrophils and is slightly worse today compared to in terms of his condition. He was able to be up and I have a video of him ambulating with e therapist yesterday afternoon and the nasal cannula oxygen actually was out and not in the nose. H e is also on Librium which is being held as he is now more sedated. Plan: Agree with aggressive antibiotic treatment for possible pneumonia. He is on meropenem 1000 mg every 8 hours. Also, he does have steroid on board to suppress inflammatory changes. IV fluids may be carefully used. Aspirin on board to reduce risk of stroke. May continue Lipitor for dyslipidemi a and blood pressure control may be optimized. His routine electroencephalogram, which was done actu ally earlier in the day showed a mildly slow background with no epileptiform discharges. The study i s consistent with a mild diffuse disturbance in cerebral function. In terms of his plan, we will con tinue with the treatment for his likely systemic infection. No antiepileptics at this point required . No evidence of a stroke or focal neurological deficit. The patient may still benefit from aggress haydee physical therapy once he is out of the acute phase of his treatment for the likely pneumonia. JACQUELYN/MIAN Voice ID: [id number] Report ID: [id number]
[2024-06-05] MEDS: DIGOXIN 0.25 MG/ML AMP IV ONE (15:00)
[2024-06-05] MEDS: HYDROMORPHONE HCL 0.5 MG/0.5 ML INJ IV ONE (15:00)
[2024-06-05] MEDS: MAGNESIUM SULFATE 1 gm IVPB 1 GM/100 ML BAG IV ONE (15:53)
[2024-06-05] MEDS: DIGOXIN 0.25 MG/ML AMP IV SCH (15:54)
[2024-06-05] MEDS: FUROSEMIDE 40 MG/4 ML VIAL IV SCH (16:53)
[2024-06-05] MEDS: HYDROMORPHONE HCL 0.5 MG/0.5 ML INJ ONE (20:47)
[2024-06-05] MEDS: Mupirocin NASAL 2 APPL/1 GM TUBE NAS SCH (21:30)
--- NOTE | 2024-06-06 05:33 | RAD REPORT ---
EXAM: XR Chest, 1 View CLINICAL HISTORY: The patient is 88 years old and is Male; PICC placement. TECHNIQUE: Single view of the chest. COMPARISON: XR Chest 12/04/2022. FINDINGS: Lungs: Groundglass opacities in the right lung, suggesting pneumonia. No pulmonary vascular congestion. Pleural space: No pleural effusion or pneumothorax. Heart: Cardiomegaly. Mediastinum: Unremarkable. Bones/joints: No acute fracture visualized. Tubes, lines and devices: Right PICC line is in the SVC. Upper abdomen: No free air in the visualized upper abdomen. IMPRESSION: 1. Right PICC line is in the SVC. 2. Groundglass opacities in the right lung, suggesting pneumonia. Electronically signed by: Joceline Suarez MD 06/06/2024 05:10 AM [facility] V2 Due to temporary technical issues with the PACS/Collplant reporting system, reports are being david d by the in-house radiologist without review as a courtesy to ensure prompt reporting the interpreting radiologist is fully responsible for the content of the report. Transcribed Date/Time: 06/06/2024 5:33 AM
[2024-06-06] MEDS: AA 5%/D20W/ELECTROLYTES-TPN 2,000 ML, Lipids 20% 250 ML with MULTIVITAMINS INJ 10 ML IV SCH ×2 (05:47→17:30)
[2024-06-06 05:59] LABS: Anion Gap 12.2 mEq/L (5.0-15.0); Magnesium 2.3 mg/dL (1.6-2.4); Phosphorus 3.1 mg/dL (2.5-4.9); Potassium 3.2 mEq/L (3.5-5.1)
[2024-06-06] MEDS: KCL 20 MEQ/100 mL IVPB 20 MEQ/100 ML BAG IV SCH (06:14)
[2024-06-06 06:23] LABS: Absolute Lymphocytes (CBC) 0.4 K/uL (0.7-4.9); Absolute Monocytes 0.8 K/uL (0.1-1.3); Absolute Neutrophil 14.2 K/uL (1.8-8.0); Basophils % 0.1 % (0-1.3); Hematocrit 44.8 % (39.6-49.0); Hemoglobin 15.5 g/dL (13.6-17.9); Lymphocytes % 2.5 % (15.3-44.8); MCH 32.5 pg (27.0-35.0); MCHC 34.7 g/dL (32.0-36.0); MCV 93.6 fL (80-100); MPV 10.2 fL (7.6-11.3); Platelets 147 thou/uL (152-406); RBC Red Blood Cell Count 4.78 M/uL (4.33-5.43)
[2024-06-06 06:30] LABS: Neutrophils % 92.4 % (41.7-73.7)
--- NOTE | 2024-06-06 08:22 | RAD REPORT ---
Procedure: Chest Single View HISTORY: Cough COMPARISON: June 06, 2024 FINDINGS: No significant change in the bilateral pulmonary opacities which are worse on the right No significant pleural effusion noted. The heart is mildly enlarged. PICC line in place. IMPRESSION: No significant change in the bilateral pulmonary opacities
--- NOTE | 2024-06-06 10:43 | P.PN ---
Date of Service: 06/03/24 Subjective Patient mentation continues to worsen. Patient has confusion. Patient denies any new complaints Physical Examination - Vital Signs reviewed - Physical Exam General: Confused; can get redirected; Respiratory: Clear to auscultation bilaterally Cardiovascular: Regular rate/rhythm, Normal S1 S2, No murmurs Gastrointestinal: Normal bowel sounds, Soft and benign, Non-distended, No tenderness Musculoskeletal: No clubbing, No swelling Neurological: Patient with confusion and difficulty following commands. He does move all his extremities but left side is weaker Assessment & Plan - Problems (Diagnosis) (1) Altered mental status Current Visit: Yes Status: Acute (2) Delirium tremens with history of alcohol abuse Current Visit: Yes Status: Acute (3) Acute stroke of basal ganglia Current Visit: Yes Status: Acute (4) COPD exacerbation Current Visit: No Status: Acute (5) Atrial fibrillation with rapid trickle response Current Visit: No Status: Acute (6) PAD Current Visit: No Status: Chronic (7) Acute on chronic kidney disease Current Visit: No Status: Acute - Plan PLAN: 1. Altered mental status; multifactorial-patient with basal ganglia infarct along with delirium tremens; patient was on Precedex drip. Weaning this down. Continue with nutritional support. Continue out of bed and ambulating. Continue with antiplatelet therapy and statin therapy. Continue with Librium 3 times daily. 2. Pneumonia; possible aspiration. However, patient was able to eat at bedside. Currently working with speech therapy. Continue with antibiotic therapy. 3. Atrial fibrillation; continue with medication for rate control. Continue with amiodarone and digoxin. Continue with beta-augustus therapy; patient with a history of watchman's. He does not need any aggressive anticoagulation at this time. Spoke with cardiology and may start amiodarone drip 4. Acute on chronic kidney disease; continue monitoring renal function closely. 5. Peripheral arterial disease; status post lower extremity stents; continue with antiplatelet therapy and statin therapy 6. Dysphagia; patient with altered mentation and unable to really coordinate his swallowing well. Monitoring this closely 7. Generalized weakness; most likely related to CVA and the amount of sedation were given him. Will need to continue with weaning him down and try to get him on oral medications. Otherwise he will not get better and he will decline. At 88 years old is imperative that we do what ever we can do given the minimal IV sedation. We may need to work harder with sitting at bedside and having a sitter with him to help him get adjusted. 8. GI DVT prophylaxis Discharge Plan: Home Plan to discharge in: Greater than 2 days - Advance Directives Does patient have a Living Will: No Does patient have a Durable POA for Healthcare: Yes - Code Status/Comfort Care Code Status Assessed: Yes Code Status: Full Code Critical Care: Yes Time Spent Managing PTS Care (In Minutes): 35
--- NOTE | 2024-06-06 11:19 | P.PN ---
Subjective Date of Service: 06/06/24 Chief Complaint: Delirium/acute lung injury Patient is doing much better today he is more alert responsive cooperative cooperative and speaking appropriately off sedation Review of Systems General: Weakness Respiratory: Cough, Shortness of Breath Physical Examination - Vital Signs Temperature: 97.6 F Blood Pressure: 146/107 Pulse: 108 Respirations: 18 Pulse Ox (%): 95 - Physical Exam General: Alert, Oriented x3 Respiratory: Crackles/rales, Expiratory wheezes Cardiovascular: No edema, Regular rate/rhythm, Normal S1 S2 - Studies Medications List Reviewed: Yes Assessment And Plan - Current Problems (Diagnosis) (1) Pneumonia Current Visit: Yes Status: Acute Plan: Patient is doing much better he is has some acute lung injury on the more prominent on the right side changed to IV Levaquin DC meropenem therapy evaluation advance diet will discontinue TPN after this bag is becoming hypernatremic reduce the dose of Lasix renal function is slightly worse oxygenation satisfactory and is on 3 L of nasal cannula oxygen use albuterol on a as needed basis labs reviewed Qualifiers: Pneumonia type: due to unspecified organism Laterality: right
[2024-06-06] MEDS: METOPROLOL XL 25 MG TAB PO SCH (11:38)
[2024-06-06] MEDS: Levofloxacin 750mg IV 750 MG/150 ML BAG IV SCH (11:57)
[2024-06-06] MEDS: METOPROLOL TAR 50 MG TAB PO SCH (13:52)
--- NOTE | 2024-06-06 17:27 | RAD REPORT ---
Modified barium swallow exam with speech pathology service HISTORY: swallow eval Fluoroscopy Time: 3:10 MIN DOSE: 24.03 mGy IMPRESSION: Please see the speech pathology service report for details. Barium contrast of multiple consistencies was provided the patient orally by the speech pathology dep artment. Fluoroscopic observation was performed during swallowing. The radiologist was not present for the examination. Provided images demonstrate no evidence for yogi subglottic tracheal aspiration .
[2024-06-06] MEDS: carvediloL 12.5 MG TAB PO SCH (17:34)
[2024-06-06 17:36] LABS: Anion Gap 15.9 mEq/L (5.0-15.0); Potassium 3.9 mEq/L (3.5-5.1)
[2024-06-06] MEDS: HYDRALAZINE HCL 20 MG/ML VIAL IV PRN (20:22)
[2024-06-06] MEDS: chlordiazePOXIDE HCl 5 MG CAP PO PRN (20:23)
[2024-06-06] MEDS: LORazepam 2 MG/ML VIAL IV ONE (22:27)
[2024-06-07 05:57] LABS: Absolute Lymphocytes (CBC) 0.6 K/uL (0.7-4.9); Absolute Neutrophil 15.3 K/uL (1.8-8.0); Basophils % 0.1 % (0-1.3); Hematocrit 45.4 % (39.6-49.0); Hemoglobin 15.3 g/dL (13.6-17.9); Lymphocytes % 3.3 % (15.3-44.8); MCH 31.6 pg (27.0-35.0); MCHC 33.6 g/dL (32.0-36.0); MCV 94.1 fL (80-100); MPV 9.9 fL (7.6-11.3); Monocytes % 6.1 % (3.3-12.3); Neutrophils % 90.5 % (41.7-73.7); Nucleated Red Blood Cells % 0.1 % (0-0); Platelets 128 thou/uL (152-406); RBC Red Blood Cell Count 4.82 M/uL (4.33-5.43); Red Cell Distribution Width 14.6 % (12.1-15.2)
[2024-06-07 06:13] LABS: Magnesium 2.5 mg/dL (1.6-2.4); Phosphorus 3.7 mg/dL (2.5-4.9)
[2024-06-07 08:23] LABS: Differential Total Cells Count 100; Segmented Neutrophils 92 % (40-80)
[2024-06-07 08:24] LABS: Band Neutrophils 1 % (0-1); Blood Morphology Comment NOT SEEN (NOT SEEN); Lymphocytes 3 % (15-42); Monocytes 4 % (0-10); Platelet Estimate DECR
[2024-06-07] MEDS: FUROSEMIDE 40 MG/4 ML VIAL IV SCH (08:42)
[2024-06-07] MEDS: DIGOXIN 0.125 MG TABLET PO SCH (08:42)
--- NOTE | 2024-06-07 11:29 | P.PN ---
Subjective Date of Service: 06/07/24 Chief Complaint: Delirium/acute lung injury And is currently unresponsive delirious last night was stable Review of Systems is unable to be obtained Physical Examination - Vital Signs Temperature: 97 F Blood Pressure: 138/92 Pulse: 71 Respirations: 22 Pulse Ox (%): 97 - Physical Exam General: Unresponsive Respiratory: Clear to auscultation bilaterally Cardiovascular: No edema, Regular rate/rhythm, Normal S1 S2 - Studies Medications List Reviewed: Yes Assessment And Plan - Current Problems (Diagnosis) (1) Pneumonia Current Visit: Yes Status: Acute Plan: Patient is 88 years of age admitted with acute lung injury more prominent on the right side delirium from alcohol withdrawal is currently stable Precedex labs reviewed count is still elevated patient is on levofloxacin no obvious progression oxygenation satisfactory risk for staph infection + blood pressure stable patient is on TPN followed swallow test add vancomycin Qualifiers: Pneumonia type: due to unspecified organism Laterality: right
[2024-06-07] MEDS: VANCOMYCIN 1.75 GM in NA CHLORIDE 0.9% 500 ML IVPB ONE (11:57)
[2024-06-07] MEDS: AA 5%/D20W/ELECTROLYTES-TPN 2,000 ML IV SCH (17:11)
[2024-06-08] MEDS: LORazepam 2 MG/ML VIAL IV ONE (01:46)
--- NOTE | 2024-06-08 01:47 | P.PN ---
Date of Service: 06/04/24 Subjective patient's respiratory status remains stable. Patient is clinically with no significant changes. Patient tends to be weak and confused views. Patient reportedly has worsening sundowning. Continue with Precedex as needed. Physical Examination - Vital Signs reviewed - Physical Exam General: Confused; can get redirected; Respiratory: Clear to auscultation bilaterally Cardiovascular: Regular rate/rhythm, Normal S1 S2, No murmurs Gastrointestinal: Normal bowel sounds, Soft and benign, Non-distended, No tenderness Musculoskeletal: No clubbing, No swelling Neurological: Patient with confusion and difficulty following commands. He does move all his extremities but left side is weaker Assessment & Plan - Problems (Diagnosis) (1) Altered mental status Current Visit: Yes Status: Acute (2) Delirium tremens with history of alcohol abuse Current Visit: Yes Status: Acute (3) Acute stroke of basal ganglia Current Visit: Yes Status: Acute (4) COPD exacerbation Current Visit: No Status: Acute (5) Atrial fibrillation with rapid trickle response Current Visit: No Status: Acute (6) PAD Current Visit: No Status: Chronic (7) Acute on chronic kidney disease Current Visit: No Status: Acute - Plan Continue with plan of care as mentioned below: 1. Altered mental status; multifactorial-patient with basal ganglia infarct along with delirium tremens; patient was on Precedex drip. Weaning this down. Continue with nutritional support. Continue out of bed and ambulating. Continue with antiplatelet therapy and statin therapy. Continue with Librium 3 times daily. 2. Pneumonia; possible aspiration. However, patient was able to eat at bedside. Currently working with speech therapy. Continue with antibiotic th erapy. 3. Atrial fibrillation; continue with medication for rate control. Continue with amiodarone and digoxin. Continue with beta-augustus therapy; patient with a history of watchman's. He does not need any aggressive anticoagulation at this time. Spoke with cardiology and may start amiodarone drip 4. Acute on chronic kidney disease; continue monitoring renal function closely. 5. Peripheral arterial disease; status post lower extremity stents; continue with antiplatelet therapy and statin therapy 6. Dysphagia; patient with altered mentation and unable to really coordinate his swallowing well. Monitoring this closely 7. Generalized weakness; most likely related to CVA and the amount of sedation were given him. Will need to continue with weaning him down and try to get him on oral medications. Otherwise he will not get better and he will decline. At 88 years old is imperative that we do what ever we can do given the minimal IV sedation. We may need to work harder with sitting at bedside and having a sitter with him to help him get adjusted. 8. GI DVT prophylaxis Discharge Plan: Home Plan to discharge in: Greater than 2 days - Advance Directives Does patient have a Living Will: No Does patient have a Durable POA for Healthcare: Yes - Code Status/Comfort Care Code Status Assessed: Yes Code Status: Full Code Critical Care: Yes Time Spent Managing PTS Care (In Minutes): 35
--- NOTE | 2024-06-08 01:49 | P.PN ---
Date of Service: 06/05/24 Subjective Patient is remaining stable and patient denies any new complaints. Clinical symptoms have been stable. Patient's mental status is slow to recover. Once his mentation improves then we can downgrade. Physical Examination - Vital Signs reviewed - Physical Exam General: Confused; can get redirected; Respiratory: Clear to auscultation bilaterally Cardiovascular: Regular rate/rhythm, Normal S1 S2, No murmurs Gastrointestinal: Normal bowel sounds, Soft and benign, Non-distended, No tenderness Musculoskeletal: No clubbing, No swelling Neurological: Patient with confusion and difficulty following commands. He does move all his extremities but left side is weaker Assessment & Plan - Problems (Diagnosis) (1) Altered mental status Current Visit: Yes Status: Acute (2) Delirium tremens with history of alcohol abuse Current Visit: Yes Status: Acute (3) Acute stroke of basal ganglia Current Visit: Yes Status: Acute (4) COPD exacerbation Current Visit: No Status: Acute (5) Atrial fibrillation with rapid trickle response Current Visit: No Status: Acute (6) PAD Current Visit: No Status: Chronic (7) Acute on chronic kidney disease Current Visit: No Status: Acute - Plan Continue with plan of care as mentioned below: 1. Altered mental status; multifactorial-patient with basal ganglia infarct along with delirium tremens; patient was on Precedex drip. Weaning this down. Continue with nutritional support. Continue out of bed and ambulating. Continue with antiplatelet therapy and statin therapy. Continue with Librium 3 times daily. Continue with weaning off of Precedex. 2. Pneumonia; possible aspiration. However, patient was able to eat at bedside. Currently working with speech therapy. Continue with antibiotic therapy. Repeat chest x-ray 3. Atrial fibrillation; continue with medication for rate control. Continue with amiodarone and digoxin. Continue with beta-augustus therapy; patient with a history of watchman's. He does not need any aggressive anticoagulation at this time. Spoke with cardiology and may start amiodarone drip. continue with medication for rate control 4. Acute on chronic kidney disease; continue monitoring renal function closely. 5. Peripheral arterial disease; status post lower extremity stents; continue with antiplatelet therapy and statin therapy 6. Dysphagia; patient with altered mentation and unable to really coordinate his swallowing well. Monitoring this closely 7. Generalized weakness; most likely related to CVA and the amount of sedation were given him. Will need to continue with weaning him down and try to get him on oral medications. Otherwise he will not get better and he will decline. At 88 years old is imperative that we do what ever we can do given the minimal IV sedation. We may need to work harder with sitting at bedside and having a sitter with him to help him get adjusted. 8. GI DVT prophylaxis Discharge Plan: Home Plan to discharge in: Greater than 2 days - Advance Directives Does patient have a Living Will: No Does patient have a Durable POA for Healthcare: Yes - Code Status/Comfort Care Code Status Assessed: Yes Code Status: Full Code Critical Care: Yes Time Spent Managing PTS Care (In Minutes): 35
--- NOTE | 2024-06-08 01:51 | P.PN ---
Date of Service: 06/06/24 Subjective Patient continues to slowly improve. Patient's mentation has been much better. However patient still gets lethargic at times. Continue with anti- platelet therapy and DVT prophylaxis for basal ganglia stroke. Physical therapy once his mentation continues to improve. Physical Examination - Vital Signs reviewed - Physical Exam General: Confused; can get redirected; Respiratory: Clear to auscultation bilaterally Cardiovascular: Regular rate/rhythm, Normal S1 S2, No murmurs Gastrointestinal: Normal bowel sounds, Soft and benign, Non-distended, No tenderness Musculoskeletal: No clubbing, No swelling Neurological: Patient with confusion and difficulty following commands. He does move all his extremities but left side is weaker Assessment & Plan - Problems (Diagnosis) (1) Altered mental status Current Visit: Yes Status: Acute (2) Delirium tremens with history of alcohol abuse Current Visit: Yes Status: Acute (3) Acute stroke of basal ganglia Current Visit: Yes Status: Acute (4) COPD exacerbation Current Visit: No Status: Acute (5) Atrial fibrillation with rapid trickle response Current Visit: No Status: Acute (6) PAD Current Visit: No Status: Chronic (7) Acute on chronic kidney disease Current Visit: No Status: Acute - Plan Continue with plan of care as mentioned below: 1. Altered mental status; multifactorial-patient with basal ganglia infarct along with delirium tremens; patient was on Precedex drip. Weaning this down. Continue with nutritional support. Continue out of bed and ambulating. Continue with antiplatelet therapy and statin therapy. Continue with Librium 3 times daily. Continue with weaning off of Precedex. 2. Pneumonia; possible aspiration. However, patient was able to eat at bedside. Currently working with speech therapy. Continue with antibiotic therapy. Repeat chest x-ray 3. Atrial fibrillation; continue with medication for rate control. Continue with amiodarone and digoxin. Continue with beta-augustus therapy; patient with a history of watchman's. He does not need any aggressive anticoagulation at this time. Spoke with cardiology and may start amiodarone drip. continue with medication for rate control 4. Acute on chronic kidney disease; continue monitoring renal function closely. 5. Peripheral arterial disease; status post lower extremity stents; continue with antiplatelet therapy and statin therapy 6. Dysphagia; patient with altered mentation and unable to really coordinate his swallowing well. Monitoring this closely 7. Generalized weakness; most likely related to CVA and the amount of sedation were given him. Will need to continue with weaning him down and try to get him on oral medications. Otherwise he will not get better and he will decline. At 88 years old is imperative that we do what ever we can do given the minimal IV sedation. We may need to work harder with sitting at bedside and having a sitter with him to help him get adjusted. 8. GI DVT prophylaxis Discharge Plan: Home Plan to discharge in: Greater than 2 days - Advance Directives Does patient have a Living Will: No Does patient have a Durable POA for Healthcare: Yes - Code Status/Comfort Care Code Status Assessed: Yes Code Status: Full Code Critical Care: Yes Time Spent Managing PTS Care (In Minutes): 35
[2024-06-08 05:36] LABS: Absolute Lymphocytes (CBC) 0.7 K/uL (0.7-4.9); Absolute Monocytes 1.1 K/uL (0.1-1.3); Absolute Neutrophil 11.4 K/uL (1.8-8.0); Basophils % 0.2 % (0-1.3); Eosinophils % 0.1 % (0-4.4); Hematocrit 46.7 % (39.6-49.0); Hemoglobin 15.7 g/dL (13.6-17.9); Lymphocytes % 5.2 % (15.3-44.8); MCH 31.5 pg (27.0-35.0); MCHC 33.7 g/dL (32.0-36.0); MCV 93.6 fL (80-100); Nucleated Red Blood Cells % 0.1 % (0-0); Platelets 135 thou/uL (152-406); RBC Red Blood Cell Count 4.99 M/uL (4.33-5.43); Red Cell Distribution Width 14.6 % (12.1-15.2)
[2024-06-08 05:37] LABS: Neutrophils % 86.5 % (41.7-73.7)
[2024-06-08 06:05] LABS: Albumin 2.4 g/dL (3.4-5.0); Albumin/Globulin Ratio 0.7 (1.1-1.8); Anion Gap 9.7 mEq/L (5.0-15.0); Bilirubin Direct 0.4 mg/dL (0-0.2); Bilirubin Indirect, Calculated 0.6 mg/dL (0.2-0.8); Globulin 3.4 g/dL (2.3-3.5); Magnesium 2.5 mg/dL (1.6-2.4); Phosphorus 3.7 mg/dL (2.5-4.9); Potassium 3.7 mEq/L (3.5-5.1); Protein, Total 5.8 g/dL (6.4-8.2)
[2024-06-08] MEDS: KCL 20 MEQ/100 mL IVPB 20 MEQ/100 ML BAG IV SCH (08:32)
[2024-06-08] MEDS: THIAMINE 200 MG/2 ML INJ IVP SCH (08:32)
--- NOTE | 2024-06-08 11:23 | RAD REPORT ---
Procedure: Chest Single View HISTORY: Cough COMPARISON: June 06, 2024 FINDINGS: Mild improvement in the right and no significant change in the left pulmonary opacities probably pneu monia The heart remains enlarged. No significant pleural effusion
[2024-06-08] MEDS: dexAMETHasone 4 MG/ML VIAL IV ONE (12:36)
[2024-06-08] MEDS: chlordiazePOXIDE HCl 5 MG CAP PO SCH (14:00)
[2024-06-08] MEDS: AMIODARONE HCL 200 MG TAB PO SCH (20:39)
[2024-06-08] MEDS: FENTANYL CITR 100 MCG/2 ML IV PRN (20:40)
[2024-06-08] MEDS: LORazepam 2 MG/ML VIAL IV STA (22:00)
[2024-06-08] MEDS: DEXMEDETOMIDINE HCL 200 MCG/2 ML VIAL ONE (23:37)
[2024-06-08] MEDS: NALOXONE 0.4 MG/ML VIAL ONE (23:37)
[2024-06-08] MEDS: NALOXONE 0.4 MG/ML VIAL IV ONE (23:50)
[2024-06-08] MEDS: VANCOMYCIN 1.25 GM in NA CHLORIDE 0.9% 250 ML IVPB SCH (23:55)
[2024-06-09] MEDS: FLUMAZENIL 0.1 MG/ML (5 mL VIAL) IV ONE
[2024-06-09] MEDS: Ringers Lactate 1,000 ML IV ONE ×2 (00:20)
--- NOTE | 2024-06-09 00:32 | P.PN ---
Date of Service: 06/08/24 Subjective I was able to get patient out of bed into a chair today. The nursing staff states that patient was in the chair for 1 hour. Patient's chest x-ray reveals some improvement of his right lung aeration. He is able to tell me where he is and he is able to tell me the president. He was somewhat confused on the date. Overall, patient is starting to move around in his strength is somewhat improved. I am trying really hard to get him mobile and moving around once again. Unfortunately, he has times when he becomes agitated and the nursing staff since the medicate him so he can be safe and not hurt himself or anybody else. Patient has gotten multiple doses of Ativan at night. During the day, he does remain fairly calm especially if we are able to engage with him. Unfortunately, unless patient is able to get out of this cycle of persistent sedation through the night and early day time he will probably not improve. Because of the encephalopathy his prognosis is poor. Family has decided to proceed with a DNI. Physical Examination - Vital Signs reviewed - Physical Exam General: Confused; can get redirected; Oriented to person and to place; he knows the president but does not know the time. Respiratory: Coarse breath sounds but otherwise clear Cardiovascular: Regular rate/rhythm, Normal S1 S2, No murmurs Gastrointestinal: Normal bowel sounds, Soft and benign, Non-distended, No tenderness Musculoskeletal: No clubbing, bilateral lower from the swelling Neurological: patient's strength is 4- over 5 in all 4 extremities. Patient is able to push against gravity and patient was able to stand and move his legs up and down and he was able to scoot himself to a chair with assistance. Patient is requiring maximum assistance. Assessment & Plan - Problems (Diagnosis) (1) Altered mental status Current Visit: Yes Status: Acute (2) Delirium tremens with history of alcohol abuse Current Visit: Yes Status: Acute (3) Acute stroke of basal ganglia Current Visit: Yes Status: Acute (4) COPD exacerbation Current Visit: No Status: Acute (5) Atrial fibrillation with rapid trickle response Current Visit: No Status: Acute (6) PAD Current Visit: No Status: Chronic (7) Acute on chronic kidney disease Current Visit: No Status: Acute - Plan Continue with plan of care as mentioned below: 1. Altered mental status; multifactorial-patient with basal ganglia infarct along with delirium tremens; patient is on Librium. may add additional medication for sundowning. Continue with nutritional support. Continue out of bed and to a chair. Continue with antiplatelet therapy and statin therapy. Continue with Librium 3 times daily. Patient has been weaned off of Precedex. 2. Pneumonia; possible aspiration. However, patient was able to eat at bedside. Currently working with speech therapy. Continue with antibiotic therapy. Repeat chest x-ray shows improvement of aeration on the right lung 3. Atrial fibrillation; continue with medication for rate control. Continue with amiodarone and digoxin. Continue with beta-augustus therapy; patient with a history of watchman's. He does not need any aggressive anticoagulation at this time. Spoke with cardiology and may start amiodarone drip. continue with medication for rate control 4. Acute on chronic kidney disease; continue monitoring renal function closely. renal function continues to improve. 5. Peripheral arterial disease; status post lower extremity stents; continue with antiplatelet therapy and statin therapy 6. Dysphagia; patient with altered mentation and unable to really coordinate his swallowing well. Monitoring this closely ; swallowing has improved 7. Generalized weakness; most likely related to CVA and the amount of sedation were given him. Will need to continue with weaning him down and try to get him on oral medications. Otherwise he will not get better and he will decline. At 88 years old is imperative that we do what ever we can do given the minimal IV sedation. We may need to work harder with sitting at bedside and having a sitter with him to help him get adjusted. 8. GI DVT prophylaxis Discharge Plan: Home Plan to discharge in: Greater than 2 days - Advance Directives Does patient have a Living Will: No Does patient have a Durable POA for Healthcare: Yes - Code Status/Comfort Care Code Status Assessed: Yes Code Status: Full Code Critical Care: Yes Time Spent Managing PTS Care (In Minutes): 35
[2024-06-09] MEDS: NOREPINEPHRINE BITARTRATE/D5W 4 MG/250 ML KIT IV ONE ×4 (00:44→13:26)
[2024-06-09] MEDS: NOREPINEPHRINE 4 MG in D5W 250 ML IV SCH (01:00)
[2024-06-09 05:03] VITALS: BMI 25.1
[2024-06-09 05:33] LABS: Absolute Lymphocytes (CBC) 0.3 K/uL (0.7-4.9); Absolute Monocytes 1.2 K/uL (0.1-1.3); Absolute Neutrophil 14.1 K/uL (1.8-8.0); Basophils % 0.2 % (0-1.3); Hematocrit 44.4 % (39.6-49.0); Hemoglobin 14.4 g/dL (13.6-17.9); Lymphocytes % 2.1 % (15.3-44.8); MCHC 32.3 g/dL (32.0-36.0); MCV 95.7 fL (80-100); MPV 10.4 fL (7.6-11.3); Monocytes % 7.6 % (3.3-12.3); Neutrophils % 90.1 % (41.7-73.7); Nucleated Red Blood Cells % 0.1 % (0-0); Platelets 140 thou/uL (152-406); RBC Red Blood Cell Count 4.64 M/uL (4.33-5.43); Red Cell Distribution Width 15.2 % (12.1-15.2)
[2024-06-09 05:50] LABS: Anion Gap 8.9 mEq/L (5.0-15.0); C-Reactive Protein 24.1 mg/L (<3.00); Magnesium 2.7 mg/dL (1.6-2.4); Phosphorus 6.6 mg/dL (2.5-4.9); Potassium 4.9 mEq/L (3.5-5.1)
--- NOTE | 2024-06-09 08:13 | P.PN ---
Subjective Date of Service: 06/09/24 Chief Complaint: Delirium/acute lung injury Patient developed respiratory distress last night is currently on BiPAP unresponsive Review of Systems is unable to be obtained Physical Examination - Vital Signs Temperature: 96 F Blood Pressure: 102/70 Pulse: 65 Respirations: 24 Pulse Ox (%): 96 - Physical Exam General: Unresponsive Respiratory: Clear to auscultation bilaterally, Diminished Cardiovascular: No edema, Regular rate/rhythm - Studies Medications List Reviewed: Yes Assessment And Plan - Current Problems (Diagnosis) (1) Pneumonia Current Visit: Yes Status: Acute Plan: Patient has acute lung injury presumed ARDS and delirium history of alcohol withdrawal presumed underlying COPD not doing too good white count is mildly elevated chest x-ray shows an improvement patient is currently hypotensive DCG some of his blood pressure pills continue with bronchodilators oxygenation satisfactory trial of high flow Qualifiers: Pneumonia type: due to unspecified organism Laterality: right
[2024-06-09] MEDS: NOREPINEPHRINE BITARTRATE/D5W 4 MG/250 ML BAG IV SCH (08:36)
[2024-06-09 09:30] VITALS: O2SAT 100
[2024-06-09] MEDS: INSULIN REGULAR (HUMAN) 100 UNIT/ML SQ SCH (09:32)
--- NOTE | 2024-06-09 11:42 | P.PN ---
Subjective Date of Service: 06/09/24 Chief Complaint: Delirium/acute lung injury Subjective: New changes (Patient breathing and mental status is worse, he is not responding to commands) Review of Systems is unable to be obtained (on bipap and will not respond to commands) Physical Examination - Vital Signs Temperature: 96 F Blood Pressure: 73/46 Pulse: 65 Respirations: 23 Pulse Ox (%): 90 - Physical Exam General: Moderate distress (on BiPAP) HEENT: Atraumatic, PERRLA, EOMI Neck: Supple, JVD not distended Respiratory: Clear to auscultation bilaterally, Normal air movement Cardiovascular: Regular rate/rhythm, Normal S1 S2 Gastrointestinal: Normal bowel sounds, No tenderness Musculoskeletal: No tenderness Integumentary: No rashes Neurological: Normal speech, Normal tone, Normal affect Lymphatics: No axilla or inguinal lymphadenopathy - Studies Medications List Reviewed: Yes Assessment And Plan - Current Problems (Diagnosis) (1) Chronic a-fib Current Visit: No Status: Acute Plan: Patient with Watchman placement in the past, he is on Plavix for that and PAD stent. patient presented with possible stroke, explained to family that will need RANDOLPH to check on watchman and if clot seen then will need anticoagulation, family understand that due to his history of internal bleeding, he is still at risk of bleeding again will continue to monitor his status and see when he is ready for RANDOLPH Amiodarone 150 mg IV X1 was given and was on drip, off drip and on PO amiodarone, he is very altered and not sure about ability to swallow amiodarone, digoxin and coreg. patient overall prognosis is poor, need to discuss with family goal of care.
[2024-06-09] MEDS: NA CHLORIDE 0.9% 250 ML ONE (12:13)
[2024-06-09] MEDS: NA CHLORIDE 0.9% 250 ML IV ONE (12:15)
--- NOTE | 2024-06-09 12:15 | RAD REPORT ---
EXAM: CT Head Brain Wo Cont HISTORY: AMS COMPARISON: 06/01/2024 TECHNIQUE: Multiple contiguous axial images were obtained for a CT of the brain without contrast. Sag ittal and coronal reformats were performed. One or more of the following dose reduction techniques were used: Automated exposure control, adjus tment of the mA and kV according to patient size, and iterative reconstruction. Unless otherwise specified, incidental findings do not require dedicated imaging follow-up. FINDINGS: No evidence of hydrocephalus, intracranial hemorrhage, or extra-axial fluid collection. Advanced brain atrophy with advanced periventricular and deep white matter chronic microvascular isc hemic changes, stable. The calvarium is intact. The visualized paranasal sinuses and mastoid air cells are essentially clear . IMPRESSION: No evidence of acute intracranial abnormality. Stable deep white matter nonspecific hypodensities, most suggestive of chronic small vessel ischemic changes.
[2024-06-09] MEDS ORDERED: NOREPINEPHRINE 8 MG in Dextrose 5%-Water 492 ML IV SCH (13:00)
[2024-06-09] MEDS: D5W IV SCH ×3 (14:06→21:25)
[2024-06-09] MEDS: NOREPINEPHRINE IV SCH ×3 (14:06→21:25)
[2024-06-09] MEDS: DOPAMINE HCL IN DEXTROSE 5 % 400 MG/250 ML KIT IV SCH (15:15)
[2024-06-09 18:57] LABS: Arterial Blood Carboxyhemoglob 0.6 % (0-1.5); Blood Gas Oxyhemoglobin 80.3 % (94-97); Blood O2 Saturation 81.7 % (92-98.5)
[2024-06-09 18:58] LABS: Blood Gas THB 14.3 g/dl (12-18)
[2024-06-09] MEDS: ALBUTEROL 2.5 MG/3 ML NEB SOL NEB PRN (20:15)
[2024-06-10 01:11] VITALS: BP 111/32; TEMP 97
--- NOTE | 2024-06-13 05:43 | P.PN ---
Date of Service: 06/09/24 Subjective Patient has been declining. Patient was given medications last night and became difficult to arouse. Patient was given flumazenil but unable to reverse. Patient placed on BiPAP. Patient is hypercapnic. Patient with poor prognosis. Physical Examination - Vital Signs reviewed - Physical Exam General: Confused; can get redirected; Respiratory: Clear to auscultation bilaterally Cardiovascular: Regular rate/rhythm, Normal S1 S2, No murmurs Gastrointestinal: Normal bowel sounds, Soft and benign, Non-distended, No tenderness Musculoskeletal: No clubbing, No swelling Neurological: Patient with confusion and difficulty following commands. He does move all his extremities but left side is weaker Assessment & Plan - Problems (Diagnosis) (1) Altered mental status Current Visit: Yes Status: Acute (2) Delirium tremens with history of alcohol abuse Current Visit: Yes Status: Acute (3) Acute stroke of basal ganglia Current Visit: Yes Status: Acute (4) COPD exacerbation Current Visit: No Status: Acute (5) Atrial fibrillation with rapid trickle response Current Visit: No Status: Acute (6) PAD Current Visit: No Status: Chronic (7) Acute on chronic kidney disease Current Visit: No Status: Acute - Plan Continue with plan of care as mentioned below: 1. Altered mental status; multifactorial-patient with basal ganglia infarct along with delirium tremens; patient was on Precedex drip. Weaning this down. Continue with nutritional support. Continue out of bed and ambulating. Continue with antiplatelet therapy and statin therapy. Continue with Librium 3 times daily. Continue with weaning off of Precedex. 2. Pneumonia; possible aspiration. However, patient was able to eat at bedside. Currently working with speech therapy. Continue with antibiotic therapy. Repeat chest x-ray 3. Atrial fibrillation; continue with medication for rate control. Continue with amiodarone and digoxin. Continue with beta-augustus therapy; patient with a history of watchman's. He does not need any aggressive anticoagulation at this time. Spoke with cardiology and may start amiodarone drip. continue with medication for rate control 4. Acute on chronic kidney disease; continue monitoring renal function closely. 5. Peripheral arterial disease; status post lower extremity stents; continue with antiplatelet therapy and statin therapy 6. Dysphagia; patient with altered mentation and unable to really coordinate his swallowing well. Monitoring this closely 7. Generalized weakness; most likely related to CVA and the amount of sedation were given him. Will need to continue with weaning him down and try to get him on oral medications. Otherwise he will not get better and he will decline. At 88 years old is imperative that we do what ever we can do given the minimal IV sedation. We may need to work harder with sitting at bedside and having a sitter with him to help him get adjusted. 8. GI DVT prophylaxis Discharge Plan: Home Plan to discharge in: Greater than 2 days - Advance Directives Does patient have a Living Will: No Does patient have a Durable POA for Healthcare: Yes - Code Status/Comfort Care Code Status Assessed: Yes Code Status: Full Code Critical Care: Yes Time Spent Managing PTS Care (In Minutes): 25
--- NOTE | 2024-06-13 05:46 | P.DS ---
Discharge Date: 06/10/24 Disposition: Reason for Admission: Delirium/acute lung injury - Problems (1) Altered mental status Status: Acute (2) History of alcohol abuse Status: Acute (3) Acute stroke of basal ganglia Status: Acute (4) COPD exacerbation Status: Acute (5) Chronic a-fib Status: Acute Brief History of Present Illness: Patient is a 88-year-old male who is being admitted after he presents with altered mental status. Patient is unable to provide a history. He appears agitated in the ER. Both daughters are at bedside. They state that his been experiencing altered mental status manifested by increased lethargy, nonsensical words and disorientation. Patient has a history of CVA, peripheral vascular disease status post stent placement. At baseline, he is functional and independent in his ADLs. His symptoms have been acutely worsening Hospital Course: Patient's clinical status deteriorated during hospital stay. Patient had moments so where he was improving but eventually she was not strong enough to really overcome the infection. Patient was given Ativan and patient became very lethargic. Patient was given flumazenil to reverse it but this was unsuccessful. Patient never woke up again and was on BiPAP. ABGs revealed severe hypercapnia. Family wanted to proceed with hospice care. Prior to patient starting hospice care patient . Patient on June 09 at 2343. Cause of was respiratory failure from aspiration pneumonia.Family was at bedside at the time of expiration. Home Medications: Amlodipine [Norvasc*] 1 tab PO DAILY 09/15/18 Tamsulosin HCl [Flomax] 1 tab PO BEDTIME 09/15/18 Metoprolol Tartrate [Lopressor*] 25 mg PO BID 06/20/21 Clopidogrel Bisulfate [Plavix*] 75 mg PO DAILY #30 tab 12/04/22 Furosemide [Lasix*] 20 mg PO DAILY #30 tab 12/04/22 Losartan Potassium [Cozaar*] 100 mg PO DAILY #30 tab 12/04/22 Donepezil HCl 10 mg PO BEDTIME 06/02/24 Folic Acid 1 mg PO DAILY 06/02/24 Montelukast [Singulair] 10 mg PO DAILY 06/02/24 Oxybutynin Chloride [Oxybutynin Chloride ER] 5 mg PO DAILY 06/02/24 Physician Discharge Instructions: Patient on March 10 at 2343 and patient's body was released to [facility]. Followup: Mary Ann Aponte DO [Primary Care Provider] - Time spent managing pt's care (in minutes): 35
== END 2024-06-10 01:28 | disposition expired | DRG 64 ==
LOC: ER 17:02 → 2ND 20:16 → 3RD-ICU 06-02 15:40 → OBSVTOIN 06-02 16:37
PROVIDERS: ADMIT Internal Medicine; ATTEND Hospitalist
PROC: 02HV33Z Insertion of Infusion Device into Superior Vena Cava, Percutaneous Approach (ICD-10-PCS; 2024-06-05)
PROC: 5A09457 Assistance with Respiratory Ventilation, 24-96 Consecutive Hours, Continuous Positive Airway Pressure (ICD-10-PCS; principal; 2024-06-08)
DX: I63.9 Cerebral infarction, unspecified (principal); J69.0 Pneumonitis due to inhalation of food and vomit; J96.92 Respiratory failure, unspecified with hypercapnia; N17.9 Acute kidney failure, unspecified; G93.40 Encephalopathy, unspecified; F05 Delirium due to known physiological condition; J44.1 Chronic obstructive pulmonary disease with (acute) exacerbation; I48.20 Chronic atrial fibrillation, unspecified; F03.B11 Unspecified dementia, moderate, with agitation; I13.0 Hypertensive heart and chronic kidney disease with heart failure and stage 1 through stage 4 chronic kidney disease, or unspecified chronic kidney disease; E87.0 Hyperosmolality and hypernatremia; F10.131 Alcohol abuse with withdrawal delirium; I50.9 Heart failure, unspecified; N18.9 Chronic kidney disease, unspecified; E86.0 Dehydration; E78.5 Hyperlipidemia, unspecified; E87.6 Hypokalemia; M48.00 Spinal stenosis, site unspecified; I73.9 Peripheral vascular disease, unspecified; N40.0 Benign prostatic hyperplasia without lower urinary tract symptoms; I25.10 Atherosclerotic heart disease of native coronary artery without angina pectoris; F17.210 Nicotine dependence, cigarettes, uncomplicated; Z60.2 Problems related to living alone; Z95.5 Presence of coronary angioplasty implant and graft; Z88.8 Allergy status to other drugs, medicaments and biological substances; Z79.52 Long term (current) use of systemic steroids; Z79.02 Long term (current) use of antithrombotics/antiplatelets; Z86.73 Personal history of transient ischemic attack (TIA), and cerebral infarction without residual deficits; Z91.041 Radiographic dye allergy status; Z79.899 Other long term (current) drug therapy; Z91.148 Patient's other noncompliance with medication regimen for other reason
CPT/HCPCS: 36415; 70450; 70551; 71045; 74230; 80048; 80061; 80076; 81001; 82533; 82805; 82947; 83036; 83605; 83735; 83880; 84100; 84132; 84145; 84443; 84484; 85025; 85610; 85730; 86140; 92526; 92610; 92611; 93005; 93306; 94640; 94660; 95816; 96360; 96361; 97163; 97530; 99285; G0378; J0282; J0360; J1100; J1160; J1171; J1630; J1815; J1940; J2185; J2310; J2543; J2919; J3010; J3360; J3370; J3411; J3475; J3480; J7030; J7040; J7050; J7060; J7120; J7613; J7644